=== PATIENT | female | born 1940 | race Caucasian/White ===

== ENCOUNTER 2016-07-17 10:51 | Inpatient (IN) | payer MEDICARE ==
[2016-07-17] VITALS (12 sets, daily range): BP systolic 100–130; BP diastolic 50–67
[~2016-07-17] VITALS: Ht 167.6 cm; Wt 62.6 kg
[~2016-07-17 10:51] MED LIST: ADVAIR; ALBUTEROL; ALBUTEROL 90 MG; ASP81CT PO; ASP81TEC PO; ATOR20TA66 PO; ATOR40TA70 PO; ATOR80TA PO; ATOR80TA76 PO; CELEBREX; CLCX200C PO; CLD600T; CLOP75TA28 PO; CLOP75TA69 PO; CLPD75T; CLPD75T PO; CPH250CIP; CYCL5TAB11 PO; FENO135C PO; FENO145T18 PO; FENO145T20 PO; GABA-488 PO; GABA300C PO; GLBR3T PO; HYDR-34 PO; HYDR-3816 PO; HYDR25CA5 PO; INDM25C; INSASP10V SC; INSU100I14 SQ; INSU100V6 SC; INSU100V6 SQ; INSU100V8 SQ; ISM60TCR PO; LRT10T; LYRICA; MECL25TA56; METO-270 PO; METO-333 PO; MTF500T PO; MTF500TCR PO; MULT1TAB63; NCT21TD TD; NF-PREG50C PO; NITR-65 PO; NITR0.4T SL; OMG1KC PO; OXYC-12 PO; PANT40TA2 PO; PANT40TA3 PO; PNT40TEC PO; PRD20T PO; PREG25CA; PREG50C PO; PREG50CA2 PO; RNT150T PO; SRTR100T PO; TRIPLEX; [UNRECOGNIZED DRUG - OTHER]; [UNRECOGNIZED DRUG - OTHER]; [UNRECOGNIZED DRUG - OTHER]
[2016-07-17] MEDS ORDERED: NITROGLYCERIN DRIP 25 MG/D5W 250 ML IV ONE (10:58)
[2016-07-17] MEDS ORDERED: ASPIRIN 81 MG CHEW (CHILDREN'S ASA) PO ONE (11:00)
[2016-07-17 11:10] LABS: BASOPHILS # (AUTO) 0.1 10^3/uL (0.0-0.1); BASOPHILS % (AUTO) 1 % (0-10); EOSINOPHILS # (AUTO) 0.1 10^3/uL (0.0-0.3); EOSINOPHILS % (AUTO) 1 % (0-10); LYMPHOCYTES # (AUTO) 1.5 X 10^3 (1.0-4.0); LYMPHOCYTES % (AUTO) 15 % (12-44); MEAN CORPUSCULAR HEMOGLOBIN 30 PG (25-34); MEAN CORPUSCULAR HGB CONC 35 G/DL (32-36); MEAN CORPUSCULAR VOLUME 87 FL (80-99); MEAN PLATELET VOLUME 10.2 FL (7.4-10.4); MONOCYTES # (AUTO) 0.5 X 10^3 (0.0-1.0); MONOCYTES % (AUTO) 5 % (0-12); NEUTROPHILS # (AUTO) 7.9 X 10^3 (1.8-7.8); NEUTROPHILS % (AUTO) 78 % (42-75); PLATELET COUNT 289 10^3/uL (130-400); RED BLOOD COUNT 4.62 10^6/uL (4.35-5.85); RED CELL DISTRIBUTION WIDTH 12.6 % (10.0-14.5); WHITE BLOOD COUNT 10.1 10^3/uL (4.3-11.0)
--- NOTE | 2016-07-17 11:10 | ED Chest Pain ---
General Stated Complaint: CP Source: patient Exam Limitations: no limitations History of Present Illness Time seen by provider: 11:08 Initial Comments To ER with persistent central chest heaviness that started this morning at 930. She denies any nausea vomiting or diaphoresis but reports that she is very weak. She has a history of NSTEMI in March 2016 and a subsequent heart catheter with stenting to the RCA in June 2016 showing additionally severe disease in the LAD. She took 3 sublingual nitroglycerin at home with significant improvement in pain but her pain has come back rated at 8 out of 10 currently. She continues to smoke 5 cigarettes per day. Primary gold assayer is Dr. Zavala and regular physician is Dr. Siegel. Timing/Duration: 4-6 hours Severity/Quality: moderate Location: central Radiation: no radiation ASA po VOCATIONAL INSTRUCTOR: No NTG SL VOCATIONAL INSTRUCTOR: No Allergies and Home Medications Allergies Coded Allergies: NKANo Known Allergies (Verified Allergy, Unknown, 04/27/13) Home Medications Aspirin 81 Mg Tabec 81 MG PO DAILY (Reported) Atorvastatin Calcium 80 Mg Tablet #30 80 MG PO HS Prescribed by: LAWRENCE DOSS on 07/02/16 1550 Clopidogrel Bisulfate 75 Mg Tablet 75 MG PO DAILY (Reported) LAST FILLED #30 03-27-16 Hydrocodone/Acetaminophen 1 Each Tablet 1 TAB PO Q8H PRN PRN PAIN (Reported) Insulin Glargine,Hum.rec.anlog 100 Unit/1 Ml Vial 31 UNITS SC BID (Reported) Isosorbide Mononitrate 60 Mg Tab 60 MG PO DAILY (Reported) Metoprolol Succinate 25 Mg Tab.er.24h 25 MG PO DAILY (Reported) Nitroglycerin 0.4 Mg Tab.subl 0.4 MG SL UD PRN PRN CHEST PAIN (Reported) DISSOLVE ONE TABLET UNDER TONGUE EVERY 5 MINUTES NEEDED FOR CHEST PAIN. DO NOT EXCEED A TOTAL OF 3 DOSES Pantoprazole Sodium 40 Mg Tablet.dr 40 MG PO DAILY (Reported) Review of Systems Constitutional: see HPI EENTM: No Symptoms Reported Respiratory: No Symptoms Reported Cardiovascular: See HPI Chest PainDenies Edema, Denies Irregular Heart Rate, Denies Lightheadedness, Denies Palpitations, Denies Syncope Gastrointestinal: Denies Abdominal Pain, Denies Diarrhea, Denies Nausea Genitourinary: No Symptoms Reported Musculoskeletal: no symptoms reported Skin: no symptoms reported Psychiatric/Neurological: No Symptoms Reported Endocrine: No Symptoms Reported Past Hsttjzm-Onghua-Gcsqas Hx Patient Social History Type Used: Cigarettes Recent Hopitalizations: No Immunizations Up To Date Tetanus Booster (TDap): Unknown PED Vaccines UTD: No Date of Pneumonia Vaccine: Jun 02, 2011 Date of Influenza Vaccine: Apr 02, 2016 Seasonal Allergies Seasonal Allergies: No Surgeries HX Surgeries: Yes (CARPAL TUNNEL BILAT. 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 ) Endocrine Disorders: Diabetes, Insulin dep HEENT HX ENT Disorders: Yes HEENT Disorders: Cataract Loss of Vision: Denies Hearing Impairment: Denies Cancer Hx Cancer: No Psychosocial Hx Psychiatric Problems: Yes Behavioral Health Disorders: Anxiety, Depression Integumentary HX Skin/Integumentary Disorder: No Blood Transfusions Hx Blood Disorders: No Adverse Reaction to a Blood Tr: No Family Medical History Family Medial History: FH: suicide FH: uterine cancer 19 MOTHER FHx: diabetes mellitus 19 MOTHER Physical Exam Vital Signs Vital Sign - Last 12Hours 07/17/16 10:52 Temp 97.9 Pulse 94 Resp 22 B/P 120/67 Pulse Ox 94 O2 Delivery Room Air O2 Flow Rate 2 Capillary Refill : General Appearance: No Apparent Distress WD/WN HEENT: PERRL/EOMI TMs Normal Neck: Full Range of Motion Supple Respiratory: Normal Breath Sounds No Accessory Muscle Use No Respiratory Distress Cardiovascular: Regular Rate, Rhythm Normal Peripheral Pulses Gastrointestinal: Normal Bowel Sounds Non Tender Soft Extremity: Normal Capillary Refill Normal Inspection Neurologic/Psychiatric: Alert Oriented x3 No Motor/Sensory Deficits Normal Mood/Affect Skin: Normal Color Warm/Dry Progress/Results/Core Measures Results/Orders Lab Results Laboratory Tests Test 07/17/16 10:55 Range/Units Activated Partial Thromboplast Time 24 24-35 SEC Alanine Aminotransferase (ALT/SGPT) 13 0-55 U/L Albumin 3.6 3.2-4.5 G/DL Alkaline Phosphatase 62 40-136 U/L Anion Gap 13 5-14 MMOL/L Aspartate Amino Transf (AST/SGOT) 12 5-34 U/L BUN/Creatinine Ratio 8 Basophils # (Auto) 0.1 0.0-0.1 10^3/uL Basophils (%) (Auto) 1 0-10 % Blood Urea Nitrogen 9 7-18 MG/DL Calcium Level 8.7 8.5-10.1 MG/DL Carbon Dioxide Level 23 21-32 MMOL/L Chloride Level 96 L 98-107 MMOL/L Creatinine 1.11 0.60-1.30 MG/DL Eosinophils # (Auto) 0.1 0.0-0.3 10^3/uL Eosinophils (%) (Auto) 1 0-10 % Estimat Glomerular Filtration Rate 48 Glucose Level 543 *H 70-105 MG/DL Hematocrit 40 35-52 % Hemoglobin 13.9 11.5-16.0 G/DL INR Comment 1.0 0.8-1.4 Lymphocytes # (Auto) 1.5 1.0-4.0 X 10^3 Lymphocytes (%) (Auto) 15 12-44 % Magnesium Level 1.9 1.8-2.4 MG/DL Mean Corpuscular Hemoglobin 30 25-34 PG Mean Corpuscular Hemoglobin Concent 35 32-36 G/DL Mean Corpuscular Volume 87 80-99 FL Mean Platelet Volume 10.2 7.4-10.4 FL Monocytes # (Auto) 0.5 0.0-1.0 X 10^3 Monocytes (%) (Auto) 5 0-12 % Myoglobin 51.7 10.0-92.0 NG/ML Neutrophils # (Auto) 7.9 H 1.8-7.8 X 10^3 Neutrophils (%) (Auto) 78 H 42-75 % Platelet Count 289 130-400 10^3/uL Potassium Level 3.9 3.6-5.0 MMOL/L Prothrombin Time 12.9 12.2-14.7 SEC Red Blood Count 4.62 4.35-5.85 10^6/uL Red Cell Distribution Width 12.6 10.0-14.5 % Sodium Level 132 L 135-145 MMOL/L Total Bilirubin 0.3 0.1-1.0 MG/DL Total Protein 6.7 6.4-8.2 G/DL Troponin I < 0.30 <0.30 NG/ML White Blood Count 10.1 4.3-11.0 10^3/uL My Orders Orders-LASHAUN VELA APRN Cbc With Automated Diff (07/17/16 10:58) Magnesium (07/17/16 10:58) Chest 1 View, Ap/Pa Only (07/17/16 10:58) Ekg Tracing (07/17/16 10:58) Cardiac Profile 1 (07/17/16 10:58) Comprehensive Metabolic Panel (07/17/16 10:58) Myoglobin Serum (07/17/16 10:58) Protime With Inr (07/17/16 10:58) Partial Thromboplastin Time (07/17/16 10:58) O2 (07/17/16 10:58) Monitor-Rhythm Ecg Trace Only (07/17/16 10:58) Lipid Panel (07/18/16 06:00) Aspirin Chewable Tablet (Baby Aspirin Ch (07/17/16 11:00) Saline Lock/Iv-Start (07/17/16 10:58) Nitroglycerin Drip 25 Mg/D5w (Nitroglyce (07/17/16 10:58) Ns Iv 500 Ml (Sodium Chloride 0.9%) (07/17/16 11:30) Insulin (Regular) Human (Humulin R (Per (07/17/16 11:30) Morphine Injection (Morphine Injection (07/17/16 11:52) Medications Given in ED Current Medications Medications Dose Ordered Sig/Roman Route Start Time Stop Time Status Last Admin Dose Admin Aspirin 324 mg 324 mg ONCE ONCE PO 07/17/16 11:00 07/17/16 11:01 DC 07/17/16 11:06 324 MG Insulin Human Regular 10 unit ONCE ONCE IV 07/17/16 11:30 07/17/16 11:31 DC 07/17/16 11:56 10 UNIT Nitroglycerin/ Dextrose 250 ml STK-MED ONCE IV 07/17/16 10:58 07/17/16 11:06 DC 07/17/16 11:06 Vital Signs/I&O Vital Sign - Last 12Hours 07/17/16 07/17/16 07/17/16 07/17/16 10:52 10:52 10:55 11:06 Temp 97.9 Pulse 94 97 Resp 22 22 B/P 120/67 120/67 Pulse Ox 94 99 99 O2 Delivery Room Air Nasal Cannula Nasal Cannula O2 Flow Rate 2 2 Diagnostic Imaging Diagonstic Imaging: Xray Comments NAME: DE[facility]A GARCIA [facility] REC#: [id number] PT STATUS: REG ER : 1940 PHYSICIAN: LASHAUN VELA APRN ADMIT DATE: 07/17/16/ER Draft Date of Exam:07/17/16 CHEST 1 VIEW, AP/PA ONLY Portable upright radiograph of the chest. INDICATION: Anterior chest wall pain. FINDINGS: The lungs are hyperinflated with no focal consolidation. The heart size is normal. No effusion or pneumothorax. Mediastinum and miguel appear unremarkable. IMPRESSION: Hyperinflated clear lungs. Dictated on workstation # [id number] Dict: 07/17/16 1114 Trans: 07/17/16 1129 [id number] Interpreted by: GEORGINA YU MD Electronically signed by: Departure Communication Time/Spoke to Admitting Phy: 12:[address] Siegel who agrees to admit the patient Time/Spoke to Consulting Physi: 12:07 Communication/Consulting Spoke with Dr. Browne who agrees to consult Progress Notes Persistent chest pain with relief after 3 sublingual nitroglycerin at home but pain is recurrent at and 8 at this time. We will give nitroglycerin drip 1206 pain is rated at 4 out of 10 with a current nitroglycerin drip. It was initially 8 out of 10. Blood pressure remains 120/69. IV fluid bolus going and she has received 10 units of IV insulin. Dr. Dr. Siegel has seen the patient in the emergency room. Impression Impression: Primary Impression: Coronary artery disease Qualified Code: I25.110 - Atherosclerotic heart disease of saxman coronary artery with unstable angina pectoris Additional Impression: Chest pain Qualified Code: R07.89 - Other chest pain Disposition: ADMITTED INPATIENT Condition: Stable Decision to Admit Reason: Admit from ER (General) Decision to Admit/Date: Jul 17, 2016 Time/Decision to Admit Time: 12:07 Departure-Patient Inst. Referrals: MERRICK SIEEGL DO (PCP/Family) Primary Care Physician LASHAUN VELA APRN Jul 17, 2016 11:10
[2016-07-17 11:20] LABS: PROTHROMBIN TIME PATIENT 12.9 SEC (12.2-14.7)
[2016-07-17 11:28] LABS: ALANINE AMINOTRANSFERASE 13 U/L (0-55); ALBUMIN 3.6 G/DL (3.2-4.5); ANION GAP 13 MMOL/L (5-14); ASPARTATE AMINO TRANSFERASE 12 U/L (5-34); BILIRUBIN,TOTAL 0.3 MG/DL (0.1-1.0); BLOOD UREA NITROGEN 9 MG/DL (7-18); BUN/CREATININE RATIO 8; CALCIUM 8.7 MG/DL (8.5-10.1); CARBON DIOXIDE 23 MMOL/L (21-32); CHLORIDE 96 MMOL/L (98-107); CREATININE SERUM 1.11 MG/DL (0.60-1.30); GFR ESTIMATED 48; MAGNESIUM 1.9 MG/DL (1.8-2.4); POTASSIUM 3.9 MMOL/L (3.6-5.0); SODIUM 132 MMOL/L (135-145); TOTAL PROTEIN 6.7 G/DL (6.4-8.2)
[2016-07-17 11:29] LABS: GLUCOSE 543 MG/DL (70-105)
[2016-07-17] MEDS ORDERED: NS IV 500 ML 500 ML IV SCH (11:30)
[2016-07-17] MEDS ORDERED: inSUlin (REGULAR) HUMAN 1 UNIT/0.01 ML (CHARGE PER UNIT) IV ONE (11:30)
--- NOTE | 2016-07-17 11:30 | Diagnostic Imaging Report ---
Portable upright radiograph of the chest. INDICATION: Anterior chest wall pain. FINDINGS: The lungs are hyperinflated with no focal consolidation. The heart size is normal. No effusion or pneumothorax. Mediastinum and miguel appear unremarkable. IMPRESSION: Hyperinflated clear lungs. Dictated by: Dictated on workstation # [id number]
[2016-07-17 11:34] LABS: MYOGLOBIN SERUM 51.7 NG/ML (10.0-92.0)
[2016-07-17] MEDS ORDERED: morphine INJ 10 MG/ML 1ML (SYR OR VIAL) ONE (11:52)
--- NOTE | 2016-07-17 12:21 | History & Physicial ---
History of Present Illness History of Present Illness Reason for visit/HPI patient had chest pain that started around 930 a.m. Patient took 3 nitroglycerin which helped the pain. pain came back and patient came to the emergency room. 2 weeks ago patient had chest pain and had a stent put in area Patient has a history of coronary artery disease. Patient is a known diabetic. Patient has history of noncompliance. Patient still smokes. Date of Admission Jul 17, 2016 at 12:09 I consulted on this patient on 07/17/16 12:18 Attending Physician Ismael Shultz DO Admitting Physician Ismael Shultz DO Consult Allergies and Home Medications Allergies Coded Allergies: NKANo Known Allergies (Verified Allergy, Unknown, 04/27/13) Home Medications Aspirin 81 Mg Tabec 81 MG PO DAILY (Reported) Atorvastatin Calcium 80 Mg Tablet #30 80 MG PO HS Prescribed by: LAWRENCE DOSS on 07/02/16 1550 Clopidogrel Bisulfate 75 Mg Tablet 75 MG PO DAILY (Reported) LAST FILLED #30 03-27-16 Hydrocodone/Acetaminophen 1 Each Tablet 1 TAB PO Q8H PRN PRN PAIN (Reported) Insulin Glargine,Hum.rec.anlog 100 Unit/1 Ml Vial 31 UNITS SC BID (Reported) Isosorbide Mononitrate 60 Mg Tab 60 MG PO DAILY (Reported) Metoprolol Succinate 25 Mg Tab.er.24h 25 MG PO DAILY (Reported) Nitroglycerin 0.4 Mg Tab.subl 0.4 MG SL UD PRN PRN CHEST PAIN (Reported) DISSOLVE ONE TABLET UNDER TONGUE EVERY 5 MINUTES NEEDED FOR CHEST PAIN. DO NOT EXCEED A TOTAL OF 3 DOSES Pantoprazole Sodium 40 Mg Tablet.dr 40 MG PO DAILY (Reported) Past Qadipwx-Yfiimj-Ubppcf Hx Patient Social History Alcohol Use: Denies Use Recreational Drug Use: No Smoking Status: Current Everyday Smoker Type Used: Cigarettes Physical Abuse Screen: No Sexual Abuse: No Recent Foreign Travel: No Contact w/other who traveled: No Recent Hopitalizations: No Recent Infectious Disease Expo: No Immunizations Up To Date Tetanus Booster (TDap): Unknown Date of Pneumonia Vaccine: Jun 02, 2011 Date of Influenza Vaccine: Apr 02, 2016 Seasonal Allergies Seasonal Allergies: No Surgeries HX Surgeries: Yes (CARPAL TUNNEL BILAT. KNEE SURGERY ) Surgeries: Appendectomy, Cardiac, Section, Coronary Stent, Hysterectomy, Oophorectomy, Orthopedic Respiratory Hx Respiratory Disorders: Yes Respiratory Disorders: COPD Cardiovascular Hx Cardiovascular Disorders: Yes (HEART CATH X2, UNKNOWN AMOUNT OF STENTS) Cardiac Disorders: Coronary Artery Disease, Heart Attack, High Cholesterol, Irregular Heartbeat Neurological Hx Neurological Disorders: Yes Neurological Disorders: Neuropathy, Seizure Disorder, TIA Reproductive System Hx Reproductive Disorders: No Sexually Transmitted Disease: No HIV/AIDS: No Female Reproductive Disorders: Denies Genitourinary Hx Genitourinary Disorders: No Gastrointestinal Hx Gastrointestinal Disorders: Yes Gastrointestinal Disorders: Gastroesophageal Reflux, Ulcer Musculoskeletal Hx Musculoskeletal Disorders: Yes Musculoskeletal Disorders: Osteoporosis, Arthritis, Chronic Back Pain Endocrine Hx Endocrine Disorders: Yes (OWNS GLUCOMETER, BUT NEVER CHECKS BLOOD SUGAR AND DOES NOT FOLLOW DIET. ) Endocrine Disorders: Diabetes, Insulin dep HEENT HX ENT Disorders: Yes HEENT Disorders: Cataract Loss of Vision: Denies Hearing Impairment: Denies Cancer Hx Cancer: No Psychosocial Hx Psychiatric Problems: Yes Behavioral Health Disorders: Anxiety, Depression Integumentary HX Skin/Integumentary Disorder: No Blood Transfusions Hx Blood Disorders: No Adverse Reaction to a Blood Tr: No Family Medical History Family Hx: FH: suicide FH: uterine cancer 19 MOTHER FHx: diabetes mellitus 19 MOTHER Constitutional: weakness EENTM: no symptoms reported Respiratory: no symptoms reported Cardiovascular: chest pain other (coronary artery disease) Gastrointestinal: no symptoms reported Genitourinary: no symptoms reported Physical Exam Vital Signs Vital Sign - Last 12Hours 07/17/16 10:52 Temp 97.9 Pulse 94 Resp 22 B/P 120/67 Pulse Ox 94 O2 Delivery Room Air O2 Flow Rate 2 Capillary Refill : Less Than 3 Seconds General Appearance: No Apparent Distress Thin Eyes: Bilateral Eye Normal Inspection HEENT: Normal ENT Inspection Pharynx Normal Neck: Full Range of Motion Normal Inspection Respiratory: Chest Non Tender No Accessory Muscle Use No Respiratory Distress Cardiovascular: Regular Rate, Rhythm No Murmur Gastrointestinal: Non Tender Soft Assessment/Plan Assessment and Plan chest pain. Diabetes. Coronary artery disease. Tobacco usage. Hyperlipidemia. Clinical Quality Measures AMI/AHF: ASA po Prior to arrival: ISMAEL Rahman DO Jul 17, 2016 12:21
[2016-07-17] MEDS ORDERED: ENOXAPARIN 60 MG/0.6 ML (LOVENOX) SYR SC ONE (12:45)
[2016-07-17] MEDS ORDERED: CLOPIDOGREL 300 MG (PLAVIX) TABLET PO ONE (12:45)
[2016-07-17] MEDS ORDERED: ATOR80TA76 PO (13:01)
[2016-07-17] MEDS ORDERED: PANT40TA3 PO (13:01)
[2016-07-17] MEDS ORDERED: CATHETER FLUSH 10 ML SYR IV PRN (13:15)
[2016-07-17] MEDS: NS IV 1000 ML 1,000 ML IV SCH (14:15)
[2016-07-17] MEDS: NITROGLYCERIN DRIP 25 MG/250 ML D5W (PRE-MIX) IV SCH (14:15)
[2016-07-17] MEDS ORDERED: RT-ALBUTEROL SULF 2.5 MG/3 ML PRE-MIX VIAL INH PRN (16:45)
[2016-07-17] MEDS ORDERED: inSUlin DETERMIR 1 UNIT/0.01 ML (LEVEMIR) CHARGE PER UNIT SQ NR (17:15)
[2016-07-17] MEDS: inSUlin (REGULAR) HUMAN 1 UNIT/0.01 ML (CHARGE PER UNIT) SC SCH ×2 (17:17→21:35)
--- NOTE | 2016-07-17 17:45 | Consultation-Cardiology ---
HPI-Cardiology Cardiology Consultation: Date of Consultation 07/17/16 Date of Admission Attending Physician Ismael Shultz DO Admitting Physician Ismael Shultz DO Consulting Physician Marina BROWNE MD HPI: Chief Complaint: chest pain This is a 75 year old lady who is a patient of Dr Zavala. She has history of uncontrolled dm, CKD III, active smoking. She presented with NSTEMI in mar [address] Zavala treated a OM lesion with balloon angioplasty. She presented again in late june with unstable angina refractory to medical therapy. coronary angiography revealed severe RCA stenosis treated with ERICK. She presents again with chest pain. Prolonged x 40 minutes. Initial intensity 8/10 , when I saw her, her pain intensity was 4/10 on NTG infusion. Her chest pain radiates to the jaw. Review of Systems-Cardiology Review of Systems Constitutional: No As described under HPI, No no symptoms reported, No chills, No fever, No lightheadedness, No malaise, No tiredness, No weight loss, No weight gain, No other Eyes: No As described under HPI, No no symptoms reported, No blindness, No blurred vision, No contact lenses, No drainage, No decreased acuity, No foreign body sensation, No glasses, No inflammation, No pain, No photophobia, No previous injury, No shadows, No tunnel vision, No other, No vision change Ears/Nose/Throat: No As described under HPI, No no symptoms reported, No chronic hearing loss, No epistaxis, No ear discharge, No ear pain, No loose teeth, No mouth pain, No mouth swelling, No nasal drainage, No nose pain, No recent hearing loss, No throat pain, No throat swelling, No ulcerations, No other Respiratory: No no symptoms reported, No As described under HPI, No cough, No orthopnea, No shortness of breath, No SOB with excertion, No SOB at rest, No stridor, No wheezing, No other Cardiovascular: No no symptoms reported, No As described under HPI, chest painNo edema, No irregular heart rate, No lightheadedness, No palpitations, No syncope, No other Gastrointestinal: No no symptoms reported, No As described under HPI, No abdomen distended, No abdominal pain, No blood streaked bowels, No constipation , No diarrhea, No difficulty swallowing, No nausea, No poor appetite, No poor fluid intake, No rectal bleeding, No vomiting, No other, No nausea/vomiting/ diarrhea, No stool coloration changes Genitourinary: No no symptoms reported, No As described under HPI, No burning, No dysuria, No discharge, No frequency, No flank pain, No hematuria, No incontinence, No pain, No urgency, No other, No urine frequency changes, No urine coloration changes Musculoskeletal: No no symptoms reported, No As describe under HPI, No back pain, No gout, No joint pain, No joint swelling, No muscle pain, No muscle stiffness, No neck pain, No other Skin: No no symptoms reported, No As described under HPI, No change in color, No change in hair/nails, No dryness, No lesions, No lumps, No rash, No other, No skin related problems, No ulcerations, No rash on exposed areas, No ulcerations on exposed areas Psychiatric/Neurological: No As described under HPI, No anxiety, No depression , No emotional problems, No focal weakness, No headache, No no symptoms reported , No numbness, No other, No pre-existing deficit, No seizure, No syncope, No tingling, No tremors, No weakness Hematologic: No no symptoms reported, No As described under HPI, No anemia, No blood clots, No easy bleeding, No easy bruising, No swollen glands, No other, No bleeding abnormalities [id number]-[place] Hx Patient Social History Alcohol Use: Denies Use Recreational Drug Use: No Smoking Status: Current Everyday Smoker Type Used: Cigarettes Recent Foreign Travel: No Recent Infectious Disease Expo: No Hospitalization with Isolation: Denies Physical Abuse Screen: No Sexual Abuse: No Immunizations Up To Date Tetanus Booster (TDap): Unknown Date of Pneumonia Vaccine: Jun 02, 2011 Date of Influenza Vaccine: Apr 02, 2016 Past Medical History PMH As described under Assessment. Family Medical History Family Medical History: She reports no family h/o CAD, stroke or SCD. Family History: FH: suicide FH: uterine cancer 19 MOTHER FHx: diabetes mellitus 19 MOTHER Allergies and Home Medications Allergies Coded Allergies: NKANo Known Allergies (Verified Allergy, Unknown, 04/27/13) Home Medications Aspirin 81 Mg Tabec 81 MG PO DAILY (Reported) Atorvastatin Calcium 80 Mg Tablet 80 MG PO HS (Reported) Hydrocodone/Acetaminophen 1 Each Tablet 1 TAB PO Q8H PRN PRN PAIN (Reported) Pantoprazole Sodium 40 Mg Tablet.dr 40 MG PO DAILY (Reported) LAST FILLED 05/19/16 #30 Physical Exam-Cardiology Physical Exam Vital Signs/I&O Vital Sign - Last 12Hours 07/17/16 07/17/16 07/17/16 07/17/16 10:52 10:52 10:55 11:06 Temp 97.9 Pulse 94 97 Resp 22 22 B/P 120/67 120/67 Pulse Ox 94 99 99 O2 Delivery Room Air Nasal Cannula Nasal Cannula O2 Flow Rate 2 2 07/17/16 07/17/16 07/17/16 07/17/16 12:26 12:45 12:57 12:57 Temp 98.8 Pulse 94 89 Resp 22 16 B/P 110/66 Pulse Ox 99 96 96 O2 Delivery Nasal Cannula Room Air Room Air O2 Flow Rate 2 07/17/16 07/17/16 07/17/16 07/17/16 13:00 14:00 15:00 16:00 Pulse 79 78 Resp 18 20 19 B/P 100/60 108/59 124/65 Pulse Ox 94 92 97 95 O2 Delivery Room Air 07/17/16 07/17/16 07/17/16 07/17/16 16:00 16:00 16:17 16:39 Temp 98.9 Pulse 81 Resp 18 B/P 113/65 Pulse Ox 94 95 95 95 O2 Delivery Room Air Room Air Room Air 07/17/16 17:00 Pulse 73 Resp 16 B/P 122/61 Pulse Ox 94 Capillary Refill : Less Than 3 Seconds Constitutional: No appears stated age, No AAO x 3, No apparent distress, No PERRL, No well-developed, No well-nourished, No other HEENT: No PERRL, No normal ENT inspection, No TMs normal, No pharynx normal, No scleral icterus (R), No scleral icterus (L), No pale conjunctivae (R), No pale conjunctivae (L), No photophobia, No TM abnormal (R), No TM abnormal (L), No pharyngeal erythema, No tonsillar exudate, No other, No discharge, No EOMI, No hearing is well preserved, No hard of hearing, No oral hygience is good, No ulceration, No xanthelasmas are seen Neck: No non-tender, No full range of motion, No supple, No normal inspection, No carotid bruit, No limited range of motion, No lymphadenopathy (R), No lymphadenopathy (L), No tender lateral, No tender midline, No thyromegaly, No other, No carotid pulses are 2 + bilaterally, No with good upstrokes Respiratory: No accessory muscle use, No respiratory distress, No chest tender , No chest expansion is symmetric, No chest is bilaterally symmetric, No lungs clear to percussion, No lungs clear to auscultation, No crackles, No rhonchi, No rales, No stridor, No wheezing, No pleural rub, No other Cardiovascular: No regular rate-rhythm, No irregularly irregular, No extra beats, No parasternal heave is noted, No JVD, No edema, No bradycardia, No tachycardia, No point of maximal impulse, No cardiac thrills are palpable, No S1 and S2, No gallop/S3, No gallop/S4, No diastolic murmur, No systolic murmur, No friction rub, No click, No other Gastrointestinal: No tender, No soft, No round, No distended, No pulsatile mass , No organomegaly, No guarding, No rebound, No tenderness, No hernia, No mass, No audible bowel sounds, No abnormal bowel sounds, No abdominal bruits, No spleenomegaly, No other Rectal: deferred Extremities: No normal range of motion, No non-tender, No normal inspection, No pedal edema, No calf tenderness, No normal capillary refill, No pelvis stable , No calf tenderness, No inflammation, No pedal edema, No slow capillary refill , No swelling, No other, No abrasion, No clubbing, No cyanosis, No ecchymosis, No laceration, No no lower extremity edema bilateral, No significant edema, No tenderness, No wound Neurologic/Psychiatric: No transaction manager II-XII nml as tested, No no motor/sensory deficits, No alert, No normal mood/affect, No oriented x 3, No abnormal cerebellar tests, No abnormal transaction manager II-XII, No abnormal gait, No aphasia, No EOM palsy, No facial droop, No motor weakness, No sensory deficit, No depressed affect, No disoriented x 3, No other, No grossly intact, No power is 5/5 both on sides Skin: No normal color, No warm/dry, No cyanosis, No cool, No diaphoresis, No damp, No ecchymosis, No jaundice, No mottled, No pallor, No rash, No tattoos/ piercings, No ulcerations, No rash on exposed areas, No ulcerations on exposed areas, No other Data Review Labs Laboratory Tests 07/17/16 10:55: Activated Partial Thromboplast Time 24, Alanine Aminotransferase (ALT/SGPT) 13, Albumin 3.6, Alkaline Phosphatase 62, Anion Gap 13, Aspartate Amino Transf (AST/ SGOT) 12, BUN/Creatinine Ratio 8, Basophils # (Auto) 0.1, Basophils (%) (Auto) 1 , Blood Urea Nitrogen 9, Calcium Level 8.7, Carbon Dioxide Level 23, Chloride Level 96L, Creatinine 1.11, Eosinophils # (Auto) 0.1, Eosinophils (%) (Auto) 1, Estimat Glomerular Filtration Rate 48, Glucose Level 543*H, Hematocrit 40, Hemoglobin 13.9, INR Comment 1.0, Lymphocytes # (Auto) 1.5, Lymphocytes (%) ( Auto) 15, Magnesium Level 1.9, Mean Corpuscular Hemoglobin 30, Mean Corpuscular Hemoglobin Concent 35, Mean Corpuscular Volume 87, Mean Platelet Volume 10.2, Monocytes # (Auto) 0.5, Monocytes (%) (Auto) 5, Myoglobin 51.7, Neutrophils # ( Auto) 7.9H, Neutrophils (%) (Auto) 78H, Platelet Count 289, Potassium Level 3.9 , Prothrombin Time 12.9, Red Blood Count 4.62, Red Cell Distribution Width 12.6 , Sodium Level 132L, Total Bilirubin 0.3, Total Protein 6.7, Troponin I < 0.30, White Blood Count 10.1 07/17/16 12:23: Glucometer 418*H 07/17/16 16:50: Troponin I < 0.30 07/17/16 17:04: Glucometer 433*H ECG Impression ECG Initial ECG Rhythm: Normal Sinus Initial ECG Impression: Nonspecific Changes A/P-Cardiology Assessment/Admission Diagnosis Unstable angina refractory to medical therapy, active smoking, CKD III, Uncontrolled diabetes Plan NTG infusion (low dose secondary to hypotension), LMWH ACS dose, bolus plavix, aspirin. First two sets of troponin negative. EKG - no acute ST changes. She might need coronary angiography in am. CKD - consult nephrology. Uncontrolled DM - defer to Dr Shultz. Active smoking- strongly recommended to quit. Thank you for your consultation. Please call me if you have any questions. Abrahan Browne MD, FACP, FACC, FSCAI, FHRS, CCDS Interventional Cardiology Cardiac Electrophysiology Vascular Medicine and Endovascular Interventions Clinical Quality Measures AMI/AHF: ASA po Prior to arrival: No DVT/VTE Risk/Contraindication: Risk Factor Score Per Nursin RFS Level Per Nursing on Admit: 3=High Marina BROWNE MD Jul 17, 2016 5:45 pm
[2016-07-18] VITALS (22 sets, daily range): BP systolic 92–181; BP diastolic 51–99
[2016-07-18 04:22] LABS: BASOPHILS % (AUTO) 0 % (0-10); EOSINOPHILS % (AUTO) 0 % (0-10); LYMPHOCYTES # (AUTO) 1.6 X 10^3 (1.0-4.0); LYMPHOCYTES % (AUTO) 13 % (12-44); MEAN CORPUSCULAR HEMOGLOBIN 30 PG (25-34); MEAN CORPUSCULAR HGB CONC 34 G/DL (32-36); MEAN CORPUSCULAR VOLUME 87 FL (80-99); MONOCYTES # (AUTO) 0.8 X 10^3 (0.0-1.0); MONOCYTES % (AUTO) 7 % (0-12); NEUTROPHILS # (AUTO) 9.4 X 10^3 (1.8-7.8); NEUTROPHILS % (AUTO) 79 % (42-75); PLATELET COUNT 304 10^3/uL (130-400); RED BLOOD COUNT 4.58 10^6/uL (4.35-5.85); RED CELL DISTRIBUTION WIDTH 12.6 % (10.0-14.5); WHITE BLOOD COUNT 11.9 10^3/uL (4.3-11.0)
[2016-07-18 04:42] LABS: ANION GAP 9 MMOL/L (5-14); BLOOD UREA NITROGEN 8 MG/DL (7-18); BUN/CREATININE RATIO 10; CALCIUM 8.5 MG/DL (8.5-10.1); CARBON DIOXIDE 24 MMOL/L (21-32); CHLORIDE 108 MMOL/L (98-107); GFR ESTIMATED > 60; MAGNESIUM 1.9 MG/DL (1.8-2.4); PHOSPHORUS 3.8 MG/DL (2.3-4.7); POTASSIUM 3.7 MMOL/L (3.6-5.0); SODIUM 141 MMOL/L (135-145)
[2016-07-18 04:44] LABS: CHOLESTEROL 106 MG/DL (< 200); DIRECT LDL 50 MG/DL (1-129); TRIGLYCERIDES 136 MG/DL (<150); VLDL CHOLESTEROL 27 MG/DL (5-40)
[2016-07-18 04:49] LABS: GLUCOSE 60 MG/DL (70-105)
[2016-07-18] MEDS ORDERED: MAGNESIUM 1 GM/100 ML IVPB 100 ML IV SCH (06:00)
[2016-07-18] MEDS ORDERED: KCL 20 MEQ TAB (K-DUR) PO SCH (06:00)
[2016-07-18] MEDS ORDERED: POTASSIUM CL 10MEQ/50ML IVPB 50 ML IV SCH (06:00)
[2016-07-18] MEDS: inSUlin (REGULAR) HUMAN 1 UNIT/0.01 ML (CHARGE PER UNIT) SC SCH ×3 (06:00→17:46)
[2016-07-18] MEDS ORDERED: ASPIRIN E.C. 81 MG (ECOTRIN) TAB PO ONE (06:00)
[2016-07-18] MEDS: CLOPIDOGREL 75 MG (PLAVIX) TABLET PO ONE ×2 (06:16→06:20)
[2016-07-18] MEDS: NS IV 1000 ML 1,000 ML IV SCH ×2 (06:22→13:39)
[2016-07-18] MEDS ORDERED: HYDROcodone/APAP 7.5 MG/325 MG (LORTAB, LORCET PLUS) TABLET PO PRN ×2 (09:30→15:41)
--- NOTE | 2016-07-18 09:45 | Progress Note (SOAP) ---
Subjective Subjective/Events-last exam 75 yo F with CAD, uncontrolled diabetes- admitted for unstable angina. Pt this AM reports she no longer has the chest pain. She also reports a right radial heart cath 1 week ago. Review of Systems General: No Chills, No Night Sweats HEENT: No Head Aches Pulmonary: Dyspnea (at baseline though) Cough Cardiovascular: : Chest Pain (improved- resolved for time being.)No: Palpitations Gastrointestinal: No: Abdominal Pain, Nausea, Vomiting Genitourinary: No Dysuria, No Frequency Musculoskeletal: No: neck pain Neurological: No: Numbness, Weakness Objective Exam Vital Signs Date Time Temp Pulse Resp B/P Pulse Ox O2 Delivery O2 Flow Rate FiO2 07/18/16 09:00 98.0 07/18/16 07:00 91 07/18/16 06:20 97.7 07/18/16 04:00 81 20 92/51 93 Room Air 07/18/16 04:00 95 Room Air 07/18/16 03:00 80 19 132/65 91 Room Air 07/18/16 02:00 82 21 105/55 92 Room Air 07/18/16 01:01 81 07/18/16 01:00 81 20 117/59 92 Room Air 07/18/16 00:00 80 22 117/60 95 Room Air 07/18/16 00:00 95 Room Air 07/17/16 23:00 76 20 123/67 95 Room Air 07/17/16 22:00 77 20 129/66 96 Room Air 07/17/16 21:51 95 Room Air 07/17/16 21:35 97.7 07/17/16 21:00 77 20 130/66 95 Room Air 07/17/16 20:00 95 Room Air 07/17/16 20:00 73 14 122/61 96 Room Air 07/17/16 19:00 75 18 114/50 95 Room Air 07/17/16 19:00 75 07/17/16 18:00 74 20 127/65 96 07/17/16 17:00 73 16 122/61 94 07/17/16 16:39 95 Room Air 07/17/16 16:17 95 07/17/16 16:00 98.9 95 Room Air 07/17/16 16:00 81 18 113/65 94 Room Air 07/17/16 16:00 95 Room Air 07/17/16 15:00 78 19 124/65 97 07/17/16 14:00 79 20 108/59 92 07/17/16 13:00 18 100/60 94 07/17/16 12:57 110/66 07/17/16 12:57 98.8 89 16 96 Room Air 07/17/16 12:45 96 Room Air 07/17/16 12:26 94 22 99 Nasal Cannula 2 07/17/16 11:06 97 22 120/67 99 07/17/16 10:55 99 Nasal Cannula 2 07/17/16 10:52 Nasal Cannula 2 07/17/16 10:52 97.9 94 22 120/67 94 Room Air I & O 07/18/16 07:00 Intake Total 3660 ml Output Total 600 ml Balance 3060 ml Capillary Refill : Less Than 3 Seconds General Appearance: No Apparent Distress (smells of cigarettes) HEENT: PERRL/EOMI Neck: Non Tender Supple Respiratory: Chest Non Tender Lungs Clear Cardiovascular: Regular Rate, Rhythm No Edema Gastrointestinal: normal bowel sounds non tender soft Extremity: Normal Range of Motion Neurologic/Psychiatric: Alert Oriented x3 Skin: Warm/Dry Results Lab Laboratory Tests 07/17/16 10:55: Activated Partial Thromboplast Time 24, Alanine Aminotransferase (ALT/SGPT) 13, Albumin 3.6, Alkaline Phosphatase 62, Anion Gap 13, Aspartate Amino Transf (AST/ SGOT) 12, BUN/Creatinine Ratio 8, Basophils # (Auto) 0.1, Basophils (%) (Auto) 1 , Blood Urea Nitrogen 9, Calcium Level 8.7, Carbon Dioxide Level 23, Chloride Level 96L, Creatinine 1.11, Eosinophils # (Auto) 0.1, Eosinophils (%) (Auto) 1, Estimat Glomerular Filtration Rate 48, Glucose Level 543*H, Hematocrit 40, Hemoglobin 13.9, INR Comment 1.0, Lymphocytes # (Auto) 1.5, Lymphocytes (%) ( Auto) 15, Magnesium Level 1.9, Mean Corpuscular Hemoglobin 30, Mean Corpuscular Hemoglobin Concent 35, Mean Corpuscular Volume 87, Mean Platelet Volume 10.2, Monocytes # (Auto) 0.5, Monocytes (%) (Auto) 5, Myoglobin 51.7, Neutrophils # ( Auto) 7.9H, Neutrophils (%) (Auto) 78H, Platelet Count 289, Potassium Level 3.9 , Prothrombin Time 12.9, Red Blood Count 4.62, Red Cell Distribution Width 12.6 , Sodium Level 132L, Total Bilirubin 0.3, Total Protein 6.7, Troponin I < 0.30, White Blood Count 10.1 07/17/16 12:23: Glucometer 418*H 07/17/16 16:50: Troponin I < 0.30 07/17/16 17:04: Glucometer 433*H 07/17/16 21:30: Glucometer 286H 07/17/16 22:46: Troponin I 2.15*H 07/18/16 04:10: Anion Gap 9, BUN/Creatinine Ratio 10, Basophils # (Auto) 0.0, Basophils (%) ( Auto) 0, Blood Urea Nitrogen 8, Calcium Level 8.5, Carbon Dioxide Level 24, Chloride Level 108H, Cholesterol Level 106, Creatinine 0.80, Eosinophils # (Auto ) 0.0, Eosinophils (%) (Auto) 0, Estimat Glomerular Filtration Rate > 60, Glucose Level 60*L, HDL Cholesterol 33L, Hematocrit 40, Hemoglobin 13.5, LDL Cholesterol Direct 50, Lymphocytes # (Auto) 1.6, Lymphocytes (%) (Auto) 13, Magnesium Level 1.9, Mean Corpuscular Hemoglobin 30, Mean Corpuscular Hemoglobin Concent 34, Mean Corpuscular Volume 87, Mean Platelet Volume 10.0, Monocytes # (Auto) 0.8, Monocytes (%) (Auto) 7, Neutrophils # (Auto) 9.4H, Neutrophils (%) (Auto) 79H, Phosphorus Level 3.8, Platelet Count 304, Potassium Level 3.7, Red Blood Count 4.58, Red Cell Distribution Width 12.6, Sodium Level 141, Triglycerides Level 136, VLDL Cholesterol 27, White Blood Count 11.9H Assessment/Plan Assessment/Plan Assess & Plan/Chief Complaint 75 yo F admitted 07/17/16 unstable angina- NTG infusion (low dose secondary to hypotension), LMWH ACS dose, bolus plavix, aspirin. Dr. 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 CKD stage III- Cr normal eGFR >60 tobacco use- encourage cessation HLD- statin Dispo: Dr. Browne may do angiography this am. Will see what he recommends. Diagnosis/Problems: Clinical Quality Measures AMI/AHF: ASA po Prior to arrival: No DVT/VTE Risk/Contraindication: Risk Factor Score Per Nursin RFS Level Per Nursing on Admit: 3=High ÁLVARO MORALES MD Jul 18, 2016 09:45
[2016-07-18] MEDS ORDERED: fentaNYL INJECTION 100 MCG/2 ML AMP ONE (12:04)
[2016-07-18] MEDS ORDERED: NS IV 1000 ML 1,000 ML ONE (12:04)
[2016-07-18] MEDS ORDERED: LIDOCAINE 1% INJ 20 ML (XYLOCAINE) VIAL ONE (12:04)
--- NOTE | 2016-07-18 12:04 | Cardiology Progress Note ---
Cardiology SOAP Progress Note Subjective: No further chest pain. Objective: I&O/Vital Signs Vital Sign - Last 12Hours 07/18/16 07/18/16 07/18/16 07/18/16 01:00 01:01 02:00 03:00 Pulse 81 81 82 80 Resp 20 21 19 B/P 117/59 105/55 132/65 Pulse Ox 92 92 91 O2 Delivery Room Air Room Air Room Air 07/18/16 07/18/16 07/18/16 07/18/16 04:00 04:00 05:00 06:00 Pulse 81 88 82 Resp 20 31 18 B/P 92/51 139/75 111/55 Pulse Ox 95 93 98 96 O2 Delivery Room Air Room Air Room Air Room Air 07/18/16 07/18/16 07/18/16 07/18/16 06:20 07:00 07:00 08:00 Temp 97.7 Pulse 91 90 105 Resp 19 18 B/P 127/65 122/66 Pulse Ox 96 96 O2 Delivery Room Air Room Air 07/18/16 07/18/16 07/18/16 09:00 09:00 10:00 Temp 98.0 Pulse 84 77 Resp 22 B/P 128/ 140/72 Pulse Ox 95 96 O2 Delivery Room Air Room Air Intake and Output 07/18/16 00:00 Intake Total 1920 ml Output Total 600 ml Balance 1320 ml Weight (Pounds): 138 Weight (Ounces): 8.0 Weight (Calculated Kilograms): [id number] Constitutional: No appears stated age, No AAO x 3, No apparent distress, No PERRL, No well-developed, No well-nourished, No other Respiratory: No accessory muscle use, No respiratory distress, No chest tender , No chest expansion is symmetric, No chest is bilaterally symmetric, No lungs clear to percussion, No lungs clear to auscultation, No crackles, No rhonchi, No rales, No stridor, No wheezing, No pleural rub, No other Cardiovascular: No regular rate-rhythm, No irregularly irregular, No extra beats, No parasternal heave is noted, No JVD, No edema, No bradycardia, No tachycardia, No point of maximal impulse, No cardiac thrills are palpable, No S1 and S2, No gallop/S3, No gallop/S4, No diastolic murmur, No systolic murmur, No friction rub, No click, No other Gastrointestional: No tender, No soft, No round, No distended, No pulsatile mass, No organomegaly, No guarding, No rebound, No tenderness, No hernia, No mass, No audible bowel sounds, No abnormal bowel sounds, No abdominal bruits, No spleenomegaly, No other Extremities: No normal range of motion, No non-tender, No normal inspection, No pedal edema, No calf tenderness, No normal capillary refill, No pelvis stable , No calf tenderness, No inflammation, No pedal edema, No slow capillary refill , No swelling, No other, No abrasion, No clubbing, No cyanosis, No ecchymosis, No laceration, No no lower extremity edema bilateral, No significant edema, No tenderness, No wound Neurologic/Psychiatric: No senior sales operations analyst II-XII nml as tested, No no motor/sensory deficits, No alert, No normal mood/affect, No oriented x 3, No abnormal cerebellar tests, No abnormal senior sales operations analyst II-XII, No abnormal gait, No aphasia, No EOM palsy, No facial droop, No motor weakness, No sensory deficit, No depressed affect, No disoriented x 3, No other, No grossly intact, No power is 5/5 both on sides Skin: No normal color, No warm/dry, No cyanosis, No cool, No diaphoresis, No damp, No ecchymosis, No jaundice, No mottled, No pallor, No rash, No tattoos/ piercings, No ulcerations, No rash on exposed areas, No ulcerations on exposed areas, No other Results/Procedures: Labs Laboratory Tests 07/17/16 12:23: Glucometer 418*H 07/17/16 16:50: Troponin I < 0.30 07/17/16 17:04: Glucometer 433*H 07/17/16 21:30: Glucometer 286H 07/17/16 22:46: Troponin I 2.15*H 07/18/16 04:10: Anion Gap 9, BUN/Creatinine Ratio 10, Basophils # (Auto) 0.0, Basophils (%) ( Auto) 0, Blood Urea Nitrogen 8, Calcium Level 8.5, Carbon Dioxide Level 24, Chloride Level 108H, Cholesterol Level 106, Creatinine 0.80, Eosinophils # (Auto ) 0.0, Eosinophils (%) (Auto) 0, Estimat Glomerular Filtration Rate > 60, Glucose Level 60*L, HDL Cholesterol 33L, Hematocrit 40, Hemoglobin 13.5, LDL Cholesterol Direct 50, Lymphocytes # (Auto) 1.6, Lymphocytes (%) (Auto) 13, Magnesium Level 1.9, Mean Corpuscular Hemoglobin 30, Mean Corpuscular Hemoglobin Concent 34, Mean Corpuscular Volume 87, Mean Platelet Volume 10.0, Monocytes # (Auto) 0.8, Monocytes (%) (Auto) 7, Neutrophils # (Auto) 9.4H, Neutrophils (%) (Auto) 79H, Phosphorus Level 3.8, Platelet Count 304, Potassium Level 3.7, Red Blood Count 4.58, Red Cell Distribution Width 12.6, Sodium Level 141, Triglycerides Level 136, VLDL Cholesterol 27, White Blood Count 11.9H 07/18/16 11:54: Glucometer 248H A/P: Assessment/Dx: NSTEMI, Uncontrolled diabetes, active smoking, CKD III Plan: NSTEMI with positive troponin. Coronary angiography today. LMWH held. aspirin and plavix continued. CKD - consult nephrology. Uncontrolled DM - defer to Dr Shultz. Active smoking- strongly recommended to quit. Clinical Quality Measures AMI/AHF: ASA po Prior to arrival: Marina Cross MD Jul 18, 2016 12:04 pm
[2016-07-18] MEDS ORDERED: MIDAZOLAM 5 MG/5 ML (VERSED) VIAL ONE (12:05)
[2016-07-18] MEDS ORDERED: HEParin (CATH LAB) 2,000 ML IV ONE (12:05)
--- NOTE | 2016-07-18 12:05 | Cardiac Procedure Note-CS/ASA ---
Pre-Procedure Note Pre-Op Procedure Note H&P Reviewed The H&P was reviewed, patient examined and no changes noted. Date H&P Reviewed: Jul 18, 2016 Time H&P Reviewed: 12:05 Conscious Sedation Pre-Proced Time Reviewed: 12:05 ASA Class: 3 Airway Mallampati Classification: (three affiliated appropriate class) I. II. III, IV Lungs Heart ASA score ASA 1: a normal healthy patient ASA 2: a patient with a mild systemic disease (mid diabetes, controlled hypertension, obesity ASA 3: a patient with a severe systemic disease that limits activity (angina , COPD, prior Myocardial infarction) ASA 4: a patient with an incapacitating disease that is a constant threat to life (CHF, renal failure) ASA 5: a moribund patient not expected to survive 24 hrs. (ruptured aneurysm) ASA 6: a declared brain patient whose organs are being harvested. For emergent operations, add the letter E after the classification Grade 1 Sedation Plan: Analgesia, Amnesia, Plan communicated to team members, Discussed options with patient/fam, Discussed risks with patient/fam Note The patient is an appropriate candidate to undergo the planned procedure, sedation, and anesthesia. The patient immediately re-assessed prior to indication. Marina VIGIL MD Jul 18, 2016 12:05 pm
[2016-07-18] MEDS ORDERED: HEParin 1000 UNIT/ML (10ML VIAL) FOR BOLUS ONE (12:06)
[2016-07-18] MEDS ORDERED: NITROGLYCERIN DRIP 25 MG/D5W 0 ML IV ONE (12:07)
[2016-07-18] MEDS ORDERED: ADENOSINE 3 MG/1 ML (ADENOSCAN) 30ML VIAL IV ONE (13:02)
[2016-07-18] MEDS: NITROGLYCERIN DRIP 25 MG/250 ML D5W (PRE-MIX) IV SCH (13:15)
--- NOTE | 2016-07-18 13:45 | Progress Note-Post Operative ---
Post-Operative Progess Note Pre-Operative Diagnosis nstemi Post-Operative Diagnosis nstemi, severe LAD, Ramus and OM 1 disease. Post-Op Procedure Note Date of Procedure: Jul 18, 2016 Name of Procedure: 1. Coronary angiography. 2. Left heart catheterization. 3. FFR of the LAD. 4. Abdominal aortogram and bilateral lower extremity runoff. 5. Minx closure of the right femoral artery Procedure Note/Findings severe proximal disease of the LAD (FFR 0.76), severe long lesion of the proximal segment of a ramus intermedius artery, severe stenosis of obtuse marginal artery, patent stent in the RCA, however, severe disease of a small PDA is noted. Normal LV ejection fraction with normal LVEDP. Transfer to [facility] for CABG (LAD, Ramus, OM1). Stop Plavix, start heparin infusion without bolus. Anesthesia Type local anesthesia, conscious sedation Estimated blood loss (mL): 10 mL Packing: none Specimen(s) collected none Marina VIGIL MD Jul 18, 2016 1:45 pm
--- NOTE | 2016-07-18 14:16 | Cardiology Discharge Summary ---
Diagnosis/Chief Complaint Date of Admission Jul 17, 2016 at 10:40 am Date of Discharge Jul 18, 2016 Admission Diagnosis non-STEMI, active smoking, CKD III, Uncontrolled diabetes Final/Discharge Diagnosis non-STEMI, severe three-vessel disease, mild to moderate PAD, diabetes, active smoking, CKD 3 Chief Complaint/HPI Chief Complaint/HPI This is a 75 year old lady who is a patient of Dr Zavala. She has history of uncontrolled dm, CKD III, active smoking. She presented with NSTEMI in mar [address] Zavala treated a OM lesion with balloon angioplasty. She presented again in late june with unstable angina refractory to medical therapy. coronary angiography revealed severe RCA stenosis treated with ERICK. She presents again with chest pain. Prolonged x 40 minutes. Initial intensity 8/10 , when I saw her, her pain intensity was 4/10 on NTG infusion. Her chest pain radiates to the jaw. Discharge Summary Procedures coronary angiography reveals severe proximal LAD stenosis with FFR 0.76. Severe long stenosis segment in the proximal aspect of the ramus intermedius. Severe stenotic segment in the proximal and mid aspect of the first obtuse marginal artery. patent stent in the RCA. Small PDA which has severe stenosis in the proximal aspect. Normal LVEDP and normal ejection fraction. Discharge Physical Examination stable Hospital Course stop Plavix, start IV heparin, transferred to [place] for cardiac surgery Pending Labs Laboratory Tests 07/18/16 11:54: Glucometer 248 Discussion & Recommendations Discussion cardiac surgery is recommended in a patient with aggressive progressive coronary disease and diabetes. Follow up appt.: Dr. Zavala Dicharge Diet: Cardiac Diet Activity as Tolerated: Yes Home Medications Reviewed patient Home Medication Reconciliation Form Discharge Home Medications: Reviewed and agree with Discharge Medication list on patient's Discharge Instruction sheet Condition at discharge guarded Instructions to patient/family discussed at length with the patient and family, agree for transfer to [place]. Diagnosis/Problems Diagnosis/Problems (1) CKD (chronic kidney disease) stage 3, GFR 30-59 ml/min Status: Chronic (2) Smoking Status: Chronic (3) Non-ST elevation myocardial infarction (NSTEMI) Status: Acute (4) Uncontrolled diabetes mellitus Status: Acute Qualifiers: Clinical Quality Measures AMI/AHF: ASA po Prior to arrival: No DVT/VTE Risk/Contraindication: Risk Factor Score Per Nursin RFS Level Per Nursing on Admit: 3=High Marina VIGILZWAN MD Jul 18, 2016 2:15 pm
[2016-07-18] MEDS ORDERED: NS IV 1000 ML 1,000 ML IV SCH (15:51)
[2016-07-18] MEDS ORDERED: PATIENT MAY USE OWN MEDS, ALL PO SCH (16:00)
[2016-07-18] MEDS ORDERED: HEParin DRIP 25000 UNIT/500ML 500 ML IV SCH (17:09)
[2016-07-18] MEDS ORDERED: HEParin 1000 UNIT/ML (10ML VIAL) FOR BOLUS IV SCH (17:15)
[2016-07-18] MEDS ORDERED: HEParin DRIP 25000 UNIT/500ML 500 ML IV ONE (17:22)
[2016-07-18 17:34] LABS: MEAN PLATELET VOLUME 10.3 FL (7.4-10.4); RED BLOOD COUNT 4.72 10^6/uL (4.35-5.85); RED CELL DISTRIBUTION WIDTH 12.8 % (10.0-14.5); WHITE BLOOD COUNT 8.4 10^3/uL (4.3-11.0)
[2016-07-18 17:48] LABS: PROTHROMBIN TIME PATIENT 13.1 SEC (12.2-14.7)
[2016-07-18] MEDS ORDERED: inSUlin DETERMIR 1 UNIT/0.01 ML (LEVEMIR) CHARGE PER UNIT SQ SCH (21:00)
[2016-07-19] MEDS ORDERED: ASPIRIN E.C. 81 MG (ECOTRIN) TAB PO SCH (09:00)
--- NOTE | 2016-07-19 14:30 | CARDIAC CATHETERIZATION ---
PROCEDURE PHYSICIAN: LAZARA BROWNE CORONARY ANGIOGRAPHY REPORT DATE OF PROCEDURE: 07/18/2016 [employer]: Dr. Zavala PERFORMING PHYSICIAN: Dr. Pepe Browne. INDICATION: Non-ST elevation WV. PREOPERATIVE DIAGNOSIS: Non-ST elevation WV. POSTOPERATIVE DIAGNOSIS: Non-ST elevation WV, severe multivessel disease. HISTORY: Ms. Aaron is a 75-year-old lady with history of uncontrolled diabetes, medication noncompliance and active smoking. She presented in March of 2016 with non-ST elevation WV. Balloon angioplasty was performed to the ramus intermedius as well as the obtuse marginal artery. She was discharged in stable condition. She presented with prolonged chest pain refractory to medical therapy in June 2016. Coronary angiography revealed significant progression of disease in the mid RCA just prior to a previous stent. Moderate to severe disease was also noticed in the left circumflex artery system as well as the LAD. PCI to the mid RCA was performed with a drug eluting stent. She was again discharged in stable condition. She presents again yesterday with prolonged episode of chest pain. She was still having chest pain when I saw her in the ER. EKG did not show any ST segment elevation or depression. Her chest pain was initially refractory to nitroglycerin infusion. Enzymes were positive. She was diagnosed with non-ST elevation WV and urgent coronary angiography was performed this morning. She was given a bolus of Plavix and aspirin. She was given low molecular weight heparin overnight. History of claudication right worse than left. PROCEDURE PERFORMED: 1. Right femoral angiography. 2. Coronary angiography. 3. Left heart catheterization. 4. FFR to the LAD. 5. Abdominal aortogram with lower extremity runoff. 6. Right femoral artery closure with Mynx device. COMPLICATIONS: None. SPECIMENS: None. ESTIMATED BLOOD LOSS: 10 mL. FINAL RESULTS: Satisfactory. ANTICOAGULATION: IV heparin. CONTRAST: 137 cc of Omnipaque FLUOROSCOPY: In minutes: 7 minutes. FLUOROSCOPY DOSE: 313 mGy PROCEDURE DETAILS: The patient was brought to the Associate Drafter after informed consent was taken. All the risks and complications were explained in detail. The patient was draped and prepped in the usual sterile fashion. Access was gained in the right femoral artery with a 6-Ethiopian sheath. We had mild difficulty with gaining access. We also had some difficulty advancing the guidewire in the right iliac artery. Coronary angiography and left heart catheterization was performed with a JR4 and a JL4 catheter. Abdominal aortogram was performed with a pigtail catheter. FINDINGS: 1. Left heart catheterization: Aortic pressure 104/47 mmHg. LV pressure 99/-3 mmHg. LVEDP 4 mmHg. LVEF is normal with no significant wall motion abnormalities. There is no gradient across the aortic valve. 2. The RCA shows patent stent in the proximal and mid segments. There is a small caliber PDA which has severe proximal stenosis. 3. Left main: The left main is patent. 4. Left circumflex artery: There is ramus intermedius branch which has severe proximal stenosis. This stenosis starts right after the ostium of the ramus until the mid segment. Stenosis severity is a 80 to 90%. Caliber of the vessel is 2.0 mm. The mid left circumflex artery has severe 90% stenosis. The left circumflex artery gives off a first obtuse marginal artery whose caliber is around 1.5 mm 5. LAD: The LAD has a long diffuse disease in the proximal and midsegment. There is mild to moderate disease in the mid LAD is well. The LAD is transapical vessel. The disease severity is around 70%. 6. Abdominal aortogram and lower extremity bilateral runoff. This was performed since we had some difficult gaining access in the right common femoral artery as well as advancing the wire in the right iliac artery. Diffuse atherosclerotic disease in the distal abdominal aorta. There is mild disease in the ostium of the right common iliac artery. No significant disease is noted in the right internal as well as external iliac artery. 50% stenosis in the right common femoral artery. The SFA does not have any significant disease in the proximal and midsegment. There is mild to moderate disease segment in the distal right SFA. The right popliteal artery also has mild disease. There is a 2 vessel runoff below the right knee which is an anterior tibial artery as well as the posterior tibial artery. The deep peroneal artery is a small-caliber vessel. Moderate to severe disease is noted at the ostium of the anterior tibial artery. Stenosis severity around 70 to 80%. Anterior tibial artery becomes the dorsalis pedis artery and the posterior tibial continues and both supply the right foot. 7. The left common iliac artery does not have any significant disease. No significant disease in the left internal iliac as well as external iliac arteries. Normal left common femoral artery and the proximal and mid SFA. Mild to moderate disease in the distal SFA and the left popliteal artery. The popliteal artery divides into an anterior tibial artery as well as tibioperoneal trunk. The tibioperoneal trunk divides into a small caliber deep peroneal artery as well as the posterior tibial artery which supplies the foot. The anterior tibial artery is also free of any significant disease and supplies the foot as well. There is 2 to 2-1/2 vessel runoff below the knee in the left lower extremity. RECOMMENDATIONS: FFR of the LAD is recommended. FFR DETAILS: We took a JR4 guide catheter, a [employer] 0.014 pressure wire and IV heparin for anticoagulation. ACT was 260 seconds. The lesion was crossed with a pressure wire. Baseline FFR was 0.86. Adenosine infusion was started at 140 mcg/kg/min. The infusion was continued for 2 minutes. FFR was 0.76 which is severe. The wire was pulled out and post angiogram revealed no vascular complication. IMPRESSION/CONCLUSION: 1. Acute non-ST elevation WV with severe disease in the LAD, ramus artery, obtuse marginal artery. Patent stent in the RCA. 2. Considering that the patient has aggressive progressive coronary disease and uncontrolled diabetes, I believe the best revascularization approach is with surgery with HUFF to the LAD and saphenous vein grafts to the ramus as well as to the first obtuse marginal artery. 3. I discussed with the family and patient was willing to consider cardiac surgery. 4. I spoke with Dr. Gay at [facility] who accepts the patient for direct admit to the ICU. The Plavix will be held and IV heparin will be started. 5. Smoking cessation was strongly recommended. Job ID: [id number] Dictated Date: 07/18/2016 14:41:23 Records Management Associate Date: 07/19/2016 14:05:07 / simran
--- NOTE | 2016-07-20 07:32 | Discharge Summary ---
Diagnosis/Chief Complaint Date of Admission Jul 18, 2016 at 10:40 Date of Discharge Jul 18, 2016 at 18:55 Admission Diagnosis Admission Diagnosis chest pain. Diabetes. Coronary artery disease. Tobacco usage. Hyperlipidemia. Discharge Diagnosis non-ST elevated [place]. Uncontrolled diabetes. Noncompliance. Tobacco usage. Chronic kidney disease. Severe CAD. Severe proximal disease of LAD. Severe long lesion of ramus internal artery. Severe stenosis of obtuse marginal artery Reason Hospital Visit patient had chest pain that started around 930 a.m. Patient took 3 nitroglycerin which helped the pain. pain came back and patient came to the emergency room. 2 weeks ago patient had chest pain and had a stent put in area Patient has a history of coronary artery disease. Patient is a known diabetic. Patient has history of noncompliance. Patient still smokes. Discharge Summary Procedures cardiac catheterization Consultations cardiology Discharge Physical Examination Allergies: Coded Allergies: NKANo Known Allergies (Verified Allergy, Unknown, 04/27/13) Vitals & I&Os Vital Signs Date Time Temp Pulse Resp B/P Pulse Ox O2 Delivery O2 Flow Rate FiO2 07/18/16 18:00 88 19 122/62 97 Room Air 07/18/16 09:00 98.0 07/17/16 12:26 2 Hospital Course patient needs CABG. Patient transferred to [facility] Labs (last 24 hrs) Laboratory Tests 07/17/16 10:55: Activated Partial Thromboplast Time 24, Alanine Aminotransferase (ALT/SGPT) 13, Albumin 3.6, Alkaline Phosphatase 62, Anion Gap 13, Aspartate Amino Transf (AST/ SGOT) 12, BUN/Creatinine Ratio 8, Basophils # (Auto) 0.1, Basophils (%) (Auto) 1 , Blood Urea Nitrogen 9, Calcium Level 8.7, Carbon Dioxide Level 23, Chloride Level 96L, Creatinine 1.11, Eosinophils # (Auto) 0.1, Eosinophils (%) (Auto) 1, Estimat Glomerular Filtration Rate 48, Glucose Level 543*H, Hematocrit 40, Hemoglobin 13.9, INR Comment 1.0, Lymphocytes # (Auto) 1.5, Lymphocytes (%) ( Auto) 15, Magnesium Level 1.9, Mean Corpuscular Hemoglobin 30, Mean Corpuscular Hemoglobin Concent 35, Mean Corpuscular Volume 87, Mean Platelet Volume 10.2, Monocytes # (Auto) 0.5, Monocytes (%) (Auto) 5, Myoglobin 51.7, Neutrophils # ( Auto) 7.9H, Neutrophils (%) (Auto) 78H, Platelet Count 289, Potassium Level 3.9 , Prothrombin Time 12.9, Red Blood Count 4.62, Red Cell Distribution Width 12.6 , Sodium Level 132L, Total Bilirubin 0.3, Total Protein 6.7, Troponin I < 0.30, White Blood Count 10.1 07/17/16 12:23: Glucometer 418*H 07/17/16 16:50: Troponin I < 0.30 07/17/16 17:04: Glucometer 433*H 07/17/16 21:30: Glucometer 286H 07/17/16 22:46: Troponin I 2.15*H 07/18/16 04:10: Troponin I 2.22*H, Anion Gap 9, BUN/Creatinine Ratio 10, Basophils # (Auto) 0.0 , Basophils (%) (Auto) 0, Blood Urea Nitrogen 8, Calcium Level 8.5, Carbon Dioxide Level 24, Chloride Level 108H, Cholesterol Level 106, Creatinine 0.80, Eosinophils # (Auto) 0.0, Eosinophils (%) (Auto) 0, Estimat Glomerular Filtration Rate > 60, Glucose Level 60*L, HDL Cholesterol 33L, Hematocrit 40, Hemoglobin 13.5, LDL Cholesterol Direct 50, Lymphocytes # (Auto) 1.6, Lymphocytes (%) (Auto) 13, Magnesium Level 1.9, Mean Corpuscular Hemoglobin 30, Mean Corpuscular Hemoglobin Concent 34, Mean Corpuscular Volume 87, Mean Platelet Volume 10.0, Monocytes # (Auto) 0.8, Monocytes (%) (Auto) 7, Neutrophils # (Auto) 9.4H, Neutrophils (%) (Auto) 79H, Phosphorus Level 3.8, Platelet Count 304, Potassium Level 3.7, Red Blood Count 4.58, Red Cell Distribution Width 12.6, Sodium Level 141, Triglycerides Level 136, VLDL Cholesterol 27, White Blood Count 11.9H 07/18/16 11:54: Glucometer 248H 07/18/16 17:27: Activated Partial Thromboplast Time 25, Hematocrit 42, Hemoglobin 14.1, INR Comment 1.0, Mean Corpuscular Hemoglobin 30, Mean Corpuscular Hemoglobin Concent 34, Mean Corpuscular Volume 88, Mean Platelet Volume 10.3, Platelet Count 286, Prothrombin Time 13.1, Red Blood Count 4.72, Red Cell Distribution Width 12.8, White Blood Count 8.4 07/18/16 17:44: Glucometer 199H Laboratory Tests 07/17/16 10:55 07/18/16 04:10 07/18/16 17:27 Pending Labs Laboratory Tests 07/17/16 10:55: Activated Partial Thromboplast Time 24, Alanine Aminotransferase (ALT/SGPT) 13, Albumin 3.6, Alkaline Phosphatase 62, Anion Gap 13, Aspartate Amino Transf (AST/ SGOT) 12, BUN/Creatinine Ratio 8, Basophils # (Auto) 0.1, Basophils (%) (Auto) 1 , Blood Urea Nitrogen 9, Calcium Level 8.7, Carbon Dioxide Level 23, Chloride Level 96, Creatinine 1.11, Eosinophils # (Auto) 0.1, Eosinophils (%) (Auto) 1, Estimat Glomerular Filtration Rate 48, Glucose Level 543, Hematocrit 40, Hemoglobin 13.9, INR Comment 1.0, Lymphocytes # (Auto) 1.5, Lymphocytes (%) ( Auto) 15, Magnesium Level 1.9, Mean Corpuscular Hemoglobin 30, Mean Corpuscular Hemoglobin Concent 35, Mean Corpuscular Volume 87, Mean Platelet Volume 10.2, Monocytes # (Auto) 0.5, Monocytes (%) (Auto) 5, Myoglobin 51.7, Neutrophils # ( Auto) 7.9, Neutrophils (%) (Auto) 78, Platelet Count 289, Potassium Level 3.9, Prothrombin Time 12.9, Red Blood Count 4.62, Red Cell Distribution Width 12.6, Sodium Level 132, Total Bilirubin 0.3, Total Protein 6.7, Troponin I < 0.30, White Blood Count 10.1 07/17/16 12:23: Glucometer 418 07/17/16 16:50: Troponin I < 0.30 07/17/16 17:04: Glucometer 433 07/17/16 21:30: Glucometer 286 07/17/16 22:46: Troponin I 2.15 07/18/16 04:10: Troponin I 2.22, Anion Gap 9, BUN/Creatinine Ratio 10, Basophils # (Auto) 0.0, Basophils (%) (Auto) 0, Blood Urea Nitrogen 8, Calcium Level 8.5, Carbon Dioxide Level 24, Chloride Level 108, Cholesterol Level 106, Creatinine 0.80, Eosinophils # (Auto) 0.0, Eosinophils (%) (Auto) 0, Estimat Glomerular Filtration Rate > 60, Glucose Level 60, HDL Cholesterol 33, Hematocrit 40, Hemoglobin 13.5, LDL Cholesterol Direct 50, Lymphocytes # (Auto) 1.6, Lymphocytes (%) (Auto) 13, Magnesium Level 1.9, Mean Corpuscular Hemoglobin 30, Mean Corpuscular Hemoglobin Concent 34, Mean Corpuscular Volume 87, Mean Platelet Volume 10.0, Monocytes # (Auto) 0.8, Monocytes (%) (Auto) 7, Neutrophils # (Auto) 9.4, Neutrophils (%) (Auto) 79, Phosphorus Level 3.8, Platelet Count 304, Potassium Level 3.7, Red Blood Count 4.58, Red Cell Distribution Width 12.6, Sodium Level 141, Triglycerides Level 136, VLDL Cholesterol 27, White Blood Count 11.9 07/18/16 11:54: Glucometer 248 07/18/16 17:27: Activated Partial Thromboplast Time 25, Hematocrit 42, Hemoglobin 14.1, INR Comment 1.0, Mean Corpuscular Hemoglobin 30, Mean Corpuscular Hemoglobin Concent 34, Mean Corpuscular Volume 88, Mean Platelet Volume 10.3, Platelet Count 286, Prothrombin Time 13.1, Red Blood Count 4.72, Red Cell Distribution Width 12.8, White Blood Count 8.4 07/18/16 17:44: Glucometer 199 Discussion & Recommendations patient transferred to [facility] for open heart surgery Discharge Home Medications: Active Scripts Active Reported Atorvastatin Calcium 80 Mg Tablet 80 Mg PO HS Pantoprazole Sodium 40 Mg Tablet.dr 40 Mg PO DAILY LAST FILLED 05/19/16 #30 Hydrocodon-Acetaminoph 7.5-325 (Hydrocodone/Acetaminophen) 1 Each Tablet 1 Tab PO Q8H PRN Aspirin Ec 81 Mg (Aspirin) 81 Mg Tabec 81 Mg PO DAILY Instructions to patient/family Please see electonic discharge instructions given to patient. Diagnosis/Problems Diagnosis/Problems (1) CKD (chronic kidney disease) stage 3, GFR 30-59 ml/min Status: Chronic (2) Smoking Status: Chronic (3) Non-ST elevation myocardial infarction (NSTEMI) Status: Acute (4) Uncontrolled diabetes mellitus Status: Acute Qualifiers: Clinical Quality Measures AMI/AHF: ASA po Prior to arrival: No DVT/VTE Risk/Contraindication: Risk Factor Score Per Nursin RFS Level Per Nursing on Admit: 3=High MERRICK SIEGEL DO Jul 20, 2016 07:32
== END 2016-07-18 18:55 | disposition short-term general hospital (02) | DRG 282 ==
LOC: EDUNIT# 10:51 → ER 10:52 → ICU 12:09 → UNDOADMOB 12:09 → ICU 12:45 → OBSVTOIN 07-18 10:40 → INTOOBSV 07-18 10:40 → OBSVTOIN 07-18 10:41 → UNDODISIN 07-18 18:55
PROVIDERS: ADMIT Family Medicine; ATTEND Family Medicine
PROC: 4A023N7 Measurement of Cardiac Sampling and Pressure, Left Heart, Percutaneous Approach (ICD-10-PCS; principal; 2016-07-18)
PROC: B2111ZZ Fluoroscopy of Multiple Coronary Arteries using Low Osmolar Contrast (ICD-10-PCS; 2016-07-18)
PROC: B2151ZZ Fluoroscopy of Left Heart using Low Osmolar Contrast (ICD-10-PCS; 2016-07-18)
PROC: B41D1ZZ Fluoroscopy of Aorta and Bilateral Lower Extremity Arteries using Low Osmolar Contrast (ICD-10-PCS; 2016-07-18)
DX: I21.4 Non-ST elevation (NSTEMI) myocardial infarction (principal); I25.10 Atherosclerotic heart disease of native coronary artery without angina pectoris; E11.65 Type 2 diabetes mellitus with hyperglycemia; E11.40 Type 2 diabetes mellitus with diabetic neuropathy, unspecified; Z79.4 Long term (current) use of insulin; N18.3 Chronic kidney disease, stage 3 (moderate); F17.210 Nicotine dependence, cigarettes, uncomplicated; J44.9 Chronic obstructive pulmonary disease, unspecified; K21.9 Gastro-esophageal reflux disease without esophagitis; E78.5 Hyperlipidemia, unspecified; I25.2 Old myocardial infarction; Z95.5 Presence of coronary angioplasty implant and graft; Z91.14 Patient's other noncompliance with medication regimen
CPT/HCPCS: 36415; 71010; 80048; 80053; 80061; 82962; 83735; 83874; 84100; 84484; 85025; 85027; 85610; 85730; 93005; 93041; 93458; 93567; 93571; G0378

== ENCOUNTER 2016-07-29 11:01 | Emergency (ER) | payer MEDICARE ==
[~2016-07-29] VITALS: Ht 170.2 cm; Wt 73.9 kg
[2016-07-29] MEDS ORDERED: morphine INJ 10 MG/ML 1ML (SYR OR VIAL) IVP STA (11:32)
--- NOTE | 2016-07-29 11:39 | ED General ---
General Chief Complaint: Lower Extremity Stated Complaint: POST OP LEFT LEG PAIN/KNOT Nursing Triage Note: TO ED PER W/C WAS DISCHARGE ON WEDNESDAY FROM [facility] AFTER CABG. NOTICED TODAY DRAINAGE NEXT TO L KNEE WHERE AND KNOT IN AREA Nursing Sepsis Screen: No Definite Risk Source of Information: Patient, Family Exam Limitations: No Limitations History of Present Illness Time Seen by Provider: 11:17 Initial Comments 75-year-old female patient presents to the emergency department complains of swelling of the right distal thigh. Reports she was discharged Wednesday from [facility] after coronary artery bypass surgery. Patient reports mild swelling until this a.m. when she noticed increased swelling and tenderness. Location Injury Occurred: denies recent injury since discharge Timing/Duration: 1-3 Hours Modifying Factors: worse with Other (worse with palpation) Allergies and Home Medications Allergies Coded Allergies: NKANo Known Allergies (Verified Allergy, Unknown, 04/27/13) Home Medications Aspirin 81 Mg Tabec 81 MG PO DAILY (Reported) Atorvastatin Calcium 80 Mg Tablet 80 MG PO HS (Reported) Hydrocodone/Acetaminophen 1 Each Tablet 1 TAB PO Q8H PRN PRN PAIN (Reported) Oxycodone HCl/Acetaminophen 1 Each Tablet #14 1 EACH PO Q4H PRN PRN PAIN Prescribed by: CLEVE NAGY on 07/29/16 1307 Pantoprazole Sodium 40 Mg Tablet.dr 40 MG PO DAILY (Reported) LAST FILLED 05/19/16 #30 Constitutional: No chills, No fever, No malaise Respiratory: no symptoms reported Cardiovascular: no symptoms reported Gastrointestinal: no symptoms reported Genitourinary: no symptoms reported Musculoskeletal: no symptoms reported Skin: see HPI change in color (ecchymosis ) lumps Psychiatric/Neurological: No Symptoms Reported All Other Systems Reviewed Negative Unless Noted: Yes (Negative excepted noted.) Past Zzmbhpf-Rvzbyq-Iuvlds Hx Patient Social History Type Used: Cigarettes Recent Foreign Travel: No Contact w/Someone Who Travel: No Recent Infectious Disease Expo: No Recent Hopitalizations: No Immunizations Up To Date Tetanus Booster (TDap): Unknown PED Vaccines UTD: No Date of Pneumonia Vaccine: Jun 02, 2011 Date of Influenza Vaccine: Apr 02, 2016 Seasonal Allergies Seasonal Allergies: No Surgeries HX Surgeries: Yes (CARPAL TUNNEL BILAT. 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 ) Endocrine Disorders: Diabetes, Insulin dep HEENT HX ENT Disorders: Yes HEENT Disorders: Cataract Loss of Vision: Denies Hearing Impairment: Denies Cancer Hx Cancer: No Psychosocial Hx Psychiatric Problems: Yes Behavioral Health Disorders: Anxiety, Depression Integumentary HX Skin/Integumentary Disorder: No Blood Transfusions Hx Blood Disorders: No Adverse Reaction to a Blood Tr: No Reviewed Nursing Assessment Reviewed/Agree w Nursing PMH: Yes Family Medical History Significant Family History: No Pertinent Family Hx Family Medial History: FH: suicide FH: uterine cancer 19 MOTHER FHx: diabetes mellitus 19 MOTHER Physical Exam Vital Signs Vital Sign - Last 12Hours 07/29/16 11:09 Temp 98.0 Pulse 83 Resp 18 B/P 152/82 Pulse Ox 95 O2 Delivery Room Air Capillary Refill : Less Than 3 Seconds General Appearance: No Apparent Distress Chronically ill HEENT: PERRL/EOMI Pharynx Normal Respiratory: Lungs Clear Normal Breath Sounds No Respiratory Distress Cardiovascular: Regular Rate, Rhythm No Edema No Murmur Normal Peripheral Pulses Other (healing midline chest incision consistent with recent history of CABG) Extremity: Normal Capillary Refill Normal Range of Motion No Calf Tenderness No Pedal Edema Swelling (subacute ecchymosis of the bilateral medial thighs. left distal medial thigh shows increased swelling and tenderness. minimal bloody drainage noted from the intact incision. no evidence of cellulitis.) Neurologic/Psychiatric: Alert Oriented x3 No Motor/Sensory Deficits Normal Mood/Affect Skin: Warm/DryNo Cool, No Cyanosis, No Damp, No Diaphoresis, Ecchymosis ( subacute ecchymosis of the bilateral medial thighs. left distal medial thigh shows increased swelling and tenderness. minimal bloody drainage noted from the intact incision. no evidence of cellulitis.)No Mottled, No Pallor, Other ( healing midline chest incision consistent with recent history of CABG) Progress/Results/Core Measures Results/Orders Lab Results Laboratory Tests Test 07/29/16 11:47 07/29/16 13:35 Range/Units Activated Partial Thromboplast Time 32 24-35 SEC Alanine Aminotransferase (ALT/SGPT) 18 0-55 U/L Albumin 4.0 3.2-4.5 G/DL Alkaline Phosphatase 79 40-136 U/L Anion Gap 16 H 5-14 MMOL/L Aspartate Amino Transf (AST/SGOT) 23 5-34 U/L BUN/Creatinine Ratio 11 Basophils # (Auto) 0.0 0.0-0.1 10^3/uL Basophils (%) (Auto) 0 0-10 % Blood Urea Nitrogen 10 7-18 MG/DL Calcium Level 9.0 8.5-10.1 MG/DL Carbon Dioxide Level 26 21-32 MMOL/L Chloride Level 94 L 98-107 MMOL/L Creatinine 0.93 0.60-1.30 MG/DL Eosinophils # (Auto) 0.1 0.0-0.3 10^3/uL Eosinophils (%) (Auto) 1 0-10 % Estimat Glomerular Filtration Rate 59 Glucose Level 177 H 70-105 MG/DL Hematocrit 39 35-52 % Hemoglobin 12.8 11.5-16.0 G/DL INR Comment 1.1 0.8-1.4 Lymphocytes # (Auto) 1.1 1.0-4.0 X 10^3 Lymphocytes (%) (Auto) 10 L 12-44 % Mean Corpuscular Hemoglobin 30 25-34 PG Mean Corpuscular Hemoglobin Concent 33 32-36 G/DL Mean Corpuscular Volume 89 80-99 FL Mean Platelet Volume 8.9 7.4-10.4 FL Monocytes # (Auto) 1.0 0.0-1.0 X 10^3 Monocytes (%) (Auto) 9 0-12 % Neutrophils # (Auto) 8.8 H 1.8-7.8 X 10^3 Neutrophils (%) (Auto) 80 H 42-75 % Platelet Count 539 H 130-400 10^3/uL Potassium Level 3.9 3.6-5.0 MMOL/L Prothrombin Time 13.4 12.2-14.7 SEC Red Blood Count 4.32 L 4.35-5.85 10^6/uL Red Cell Distribution Width 14.2 10.0-14.5 % Sodium Level 136 135-145 MMOL/L Total Bilirubin 1.1 H 0.1-1.0 MG/DL Total Protein 7.1 6.4-8.2 G/DL White Blood Count 11.0 4.3-11.0 10^3/uL Glucometer 166 H 70-110 MG/DL My Orders Orders-CLEVE NAGY Cbc With Automated Diff (07/29/16 11:32) Comprehensive Metabolic Panel (07/29/16 11:32) Protime With Inr (07/29/16 11:32) Partial Thromboplastin Time (07/29/16 11:32) Saline Lock/Iv-Start (07/29/16 11:32) Morphine Injection (Morphine Injection (07/29/16 11:32) Us Left Lower Ext [id number] (07/29/16 11:32) Ondansetron Injection (Zofran Injectio (07/29/16 13:30) Accucheck Stat ONCE (07/29/16 13:30) Medications Given in ED Current Medications Medications Dose Ordered Sig/Roman Route Start Time Stop Time Status Last Admin Dose Admin Ondansetron HCl 4 mg ONCE ONCE IVP 07/29/16 13:30 07/29/16 13:31 DC 07/29/16 13:21 4 MG Vital Signs/I&O Vital Sign - Last 12Hours 07/29/16 07/29/16 11:09 13:49 Temp 98.0 Pulse 83 83 Resp 18 18 B/P 152/82 Pulse Ox 95 96 O2 Delivery Room Air Blood Pressure Mean: 105 Diagnostic Imaging Diagonstic Imaging: Ultrasound Plain Films/CT/US/NM/MRI: leg Comments FINDINGS: Corresponding to the site of bleeding and palpable abnormality, there is a complex fluid collection that, with the history provided, is presumptively a hematoma measuring 5.5 x 4.3 x 3.6 cm. It shows a linear tract extending ventrally to approach if not extend through the skin surface. It shows no internal color Doppler blood flow and shows no communication with any vascular structure. IMPRESSION: There is a complex fluid collection, presumptively a hematoma; however, its sterility could not be confirmed by imaging. Correlate clinically. Dictated on workstation # [id number] Departure Communication Progress Notes Laboratory and diagnostic findings discussed with the patient. Patient reports pain is improved with medications, but does complain of nausea after morphine given. Patient reports she has not had anything to eat or drink today. Does have nausea when pain medication is given on an empty stomach. Patient given Zofran, frankie crackers and peanut butter in the emergency department. Plan for discharge home with follow-up as an outpatient with Dr. Batista. Patient wishes to wrap the left lower extremity with Maurilio wraps when she arrives home. Patient given two 6 inch Maurilio wraps and one 3 inch Maurilio wrap. All return precautions were discussed with the patient as described in the discharge instructions of this report. Patient voices understanding and agrees with the treatment plan. Impression Impression: Primary Impression: Postoperative hematoma Qualified Code: L76.32 - Postprocedural hematoma of skin and subcutaneous tissue following other procedure Disposition: HOME, SELF-CARE Condition: Improved Departure-Patient Inst. Decision time for Depature: 13:06 Referrals: MERRICK SIEGEL DO (PCP/Family) Primary Care Physician ODILIA AGUAYO MD Patient Instructions: HEMATOMA Add. Discharge Instructions: All discharge instructions reviewed with patient and/or family. Voiced understanding. Continue home medications. Elevate the left leg on pillows, ice pack for 20 minute intervals as needed for pain and swelling. Use Maurilio wrap as instructed. Contact Dr. Batista and Dr. Dr. Siegel for follow-up appointments. Call today for appointment times. Return to the emergency department for worsened pain, swelling, redness, drainage, fever, or any other concerns. Scripts Oxycodone HCl/Acetaminophen (Percocet 5-325 mg Tablet)1 Each Tablet1 Each PO Q4H PRN PAIN #14 TAB Ref 0 Prov:CLEVE NAGY 07/29/16 CLEVE NAGY Jul 29, 2016 11:39
[2016-07-29 11:55] LABS: BASOPHILS % (AUTO) 0 % (0-10); EOSINOPHILS # (AUTO) 0.1 10^3/uL (0.0-0.3); EOSINOPHILS % (AUTO) 1 % (0-10); LYMPHOCYTES # (AUTO) 1.1 X 10^3 (1.0-4.0); LYMPHOCYTES % (AUTO) 10 % (12-44); MEAN CORPUSCULAR HEMOGLOBIN 30 PG (25-34); MEAN CORPUSCULAR HGB CONC 33 G/DL (32-36); MEAN CORPUSCULAR VOLUME 89 FL (80-99); MEAN PLATELET VOLUME 8.9 FL (7.4-10.4); MONOCYTES % (AUTO) 9 % (0-12); NEUTROPHILS # (AUTO) 8.8 X 10^3 (1.8-7.8); NEUTROPHILS % (AUTO) 80 % (42-75); PLATELET COUNT 539 10^3/uL (130-400); RED BLOOD COUNT 4.32 10^6/uL (4.35-5.85); RED CELL DISTRIBUTION WIDTH 14.2 % (10.0-14.5)
[2016-07-29 12:03] LABS: INR 1.1 (0.8-1.4); PROTHROMBIN TIME PATIENT 13.4 SEC (12.2-14.7)
[2016-07-29 12:11] LABS: BILIRUBIN,TOTAL 1.1 MG/DL (0.1-1.0); CREATININE SERUM 0.93 MG/DL (0.60-1.30); POTASSIUM 3.9 MMOL/L (3.6-5.0); TOTAL PROTEIN 7.1 G/DL (6.4-8.2)
--- NOTE | 2016-07-29 12:52 | Diagnostic Imaging Report ---
INDICATION: Bleeding. The patient had a recent CABG and greater saphenous harvest with palpable hematoma symone-incisional. FINDINGS: Corresponding to the site of bleeding and palpable abnormality, there is a complex fluid collection that, with the history provided, is presumptively a hematoma measuring 5.5 x 4.3 x 3.6 cm. It shows a linear tract extending ventrally to approach if not extend through the skin surface. It shows no internal color Doppler blood flow and shows no communication with any vascular structure. IMPRESSION: There is a complex fluid collection, presumptively a hematoma; however, its sterility could not be confirmed by imaging. Correlate clinically. Dictated by: Dictated on workstation # [id number]
[2016-07-29] MEDS ORDERED: OXYC-197 PO (13:07)
[2016-07-29] MEDS ORDERED: ONDANSETRON 4 MG/2 ML (SDV) Z0FRAN IVP ONE (13:30)
[2016-07-29 13:49] VITALS: BP 150/82
== END 2016-07-29 13:49 | disposition home or self-care (01) ==
LOC: EDUNIT# 11:01 → ER 11:05
DX: I97.631 Postprocedural hematoma of a circulatory system organ or structure following cardiac bypass (principal); J44.9 Chronic obstructive pulmonary disease, unspecified; I25.10 Atherosclerotic heart disease of native coronary artery without angina pectoris; E11.9 Type 2 diabetes mellitus without complications; Z79.4 Long term (current) use of insulin; Z79.84 Long term (current) use of oral hypoglycemic drugs; Z79.899 Other long term (current) drug therapy
CPT/HCPCS: 36415; 76881; 80053; 82962; 85025; 85610; 85730; 96374; 96375

== ENCOUNTER → 2016-08-25 | Outpatient (CLI) | payer MEDICARE ==
[~2016-08-25] MED LIST changes: +OXYC-197 PO
--- NOTE | 2016-08-25 12:48 | Diagnostic Imaging Report ---
INDICATION: Follow-up cardiac surgery. PA and lateral chest obtained at 09:01 a.m. and compared with 07/17/2016. Patient is now status post sternotomy. The heart is top limits of normal in size. There is some mild linear scarring or atelectasis in the left base. The lungs are otherwise clear. There is no pneumothorax. There is a trace of pleural fluid on the left side. There is no significant right-sided effusion. IMPRESSION: Borderline heart size with post sternotomy change. No sign of edema or consolidation. There is some mild linear scarring or atelectasis in the left base. There is a trace of pleural fluid on the left side. Dictated by: Dictated on workstation # [id number]
== END ==
LOC: CARD 08:29
PROVIDERS: ATTEND Nurse Practitioner
DX: I25.10 Atherosclerotic heart disease of native coronary artery without angina pectoris (principal)
CPT/HCPCS: 71020; 93005

== ENCOUNTER 2016-09-01 19:04 | Emergency (ER) | payer MEDICARE ==
[~2016-09-01] VITALS: Ht 165.1 cm; Wt 63.5 kg
--- NOTE | 2016-09-01 20:28 | ED General ---
General Chief Complaint: Chest Wall/Rib Pain Stated Complaint: L SIDE CHEST/RIB PAIN Source of Information: Patient Exam Limitations: No Limitations History of Present Illness Time Seen by Provider: 20:25 Initial Comments To ER with c/o left lower chest pain that began earlier today while at rest at 530 p.m. Pain was dull and 10/10. THere were no modifying factors. Pain improved to 4/10 currently but she isnt sure why. No associated chest pain or shortness of breath. She recently had CABG by Dr Gay in [place] 1 month ago and has felt overall much better without any chest pain at all since then. THe pain she had tonight was diffferent than her previous 2 MIs. She also reports that she fell a few days ago and struck the back of her head after she landed on her buttocks. She complains of pain to the tailbone only. Timing/Duration: 4-6 Hours Severity: Severe Allergies and Home Medications Allergies Coded Allergies: NKANo Known Allergies (Verified Allergy, Unknown, 04/27/13) Home Medications Aspirin 81 Mg Tabec 81 MG PO DAILY (Reported) Atorvastatin Calcium 80 Mg Tablet 80 MG PO HS (Reported) Hydrocodone/Acetaminophen 1 Each Tablet 1 TAB PO Q8H PRN PRN PAIN (Reported) Oxycodone HCl/Acetaminophen 1 Each Tablet #14 1 EACH PO Q4H PRN PRN PAIN Prescribed by: CLEVE NAGY on 07/29/16 1307 Pantoprazole Sodium 40 Mg Tablet. 40 MG PO DAILY (Reported) LAST FILLED 05/19/16 #30 Constitutional: see HPINo chills, No fever EENTM: see HPI Respiratory: see HPINo cough, No dyspnea on exertion, No hemoptysis, No orthopnea, No phlegm, No short of breath, No stridor, No wheezing Cardiovascular: see HPI chest painNo edema, No Hx of Intervention, No palpitations Genitourinary: no symptoms reported Musculoskeletal: no symptoms reported Skin: no symptoms reported Psychiatric/Neurological: No Symptoms Reported Hematologic/Lymphatic: No Symptoms Reported Past Qrpsjfi-Zhwfmh-Mvkzoh Hx Patient Social History Type Used: Cigarettes Recent Foreign Travel: No Contact w/Someone Who Travel: No Recent Hopitalizations: No Immunizations Up To Date Tetanus Booster (TDap): Unknown PED Vaccines UTD: No Date of Pneumonia Vaccine: Jun 02, 2011 Date of Influenza Vaccine: Apr 02, 2016 Seasonal Allergies Seasonal Allergies: No Surgeries HX Surgeries: Yes (CARPAL TUNNEL BILAT. 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 ) Endocrine Disorders: Diabetes, Insulin dep HEENT HX ENT Disorders: Yes HEENT Disorders: Cataract Loss of Vision: Denies Hearing Impairment: Denies Cancer Hx Cancer: No Psychosocial Hx Psychiatric Problems: Yes Behavioral Health Disorders: Anxiety, Depression Integumentary HX Skin/Integumentary Disorder: No Blood Transfusions Hx Blood Disorders: No Adverse Reaction to a Blood Tr: No Family Medical History Significant Family History: No Pertinent Family Hx Family Medial History: FH: suicide FH: uterine cancer 19 MOTHER FHx: diabetes mellitus 19 MOTHER Physical Exam Vital Signs Capillary Refill : General Appearance: No Apparent Distress WD/WN Eyes: Bilateral Eye EOMI, Bilateral Eye Normal Inspection, Bilateral Eye PERRL HEENT: PERRL/EOMI TMs Normal Neck: Full Range of Motion Normal Inspection Respiratory: No Accessory Muscle Use No Respiratory Distress Other (the chest is nontender to palpation. There is a healed midline sternotomy incision without erythema or drainage or sign of infection. There are 2 smaller incisions to the left lower chest wall which I assume to be from chest tubes. Regardless, they are clean dry and intact without erythema or tenderness.) Cardiovascular: Regular Rate, Rhythm Normal Peripheral Pulses Gastrointestinal: Normal Bowel Sounds Non Tender Soft Other (the area is no ecchymosis erythema or distention to the abdomen the abdomen is diffusely nontender to palpation as is the entire chest wall.) Extremity: Normal Capillary Refill Normal Inspection Neurologic/Psychiatric: Alert Oriented x3 Progress/Results/Core Measures Results/Orders Lab Results Laboratory Tests Test 09/01/16 20:05 09/01/16 22:00 Range/Units Activated Partial Thromboplast Time 25 24-35 SEC Alanine Aminotransferase (ALT/SGPT) 8 0-55 U/L Albumin 3.9 3.2-4.5 G/DL Alkaline Phosphatase 93 40-136 U/L Anion Gap 12 5-14 MMOL/L Aspartate Amino Transf (AST/SGOT) 9 5-34 U/L BUN/Creatinine Ratio 8 Basophils # (Auto) 0.1 0.0-0.1 10^3/uL Basophils (%) (Auto) 1 0-10 % Blood Urea Nitrogen 7 7-18 MG/DL Calcium Level 9.3 8.5-10.1 MG/DL Carbon Dioxide Level 23 21-32 MMOL/L Chloride Level 97 L 98-107 MMOL/L Creatinine 0.93 0.60-1.30 MG/DL Eosinophils # (Auto) 0.3 0.0-0.3 10^3/uL Eosinophils (%) (Auto) 3 0-10 % Estimat Glomerular Filtration Rate 59 Glucose Level 166 H 70-105 MG/DL Hematocrit 39 35-52 % Hemoglobin 13.0 11.5-16.0 G/DL INR Comment 1.0 0.8-1.4 Lymphocytes # (Auto) 1.8 1.0-4.0 X 10^3 Lymphocytes (%) (Auto) 17 12-44 % Magnesium Level 2.1 1.8-2.4 MG/DL Mean Corpuscular Hemoglobin 30 25-34 PG Mean Corpuscular Hemoglobin Concent 34 32-36 G/DL Mean Corpuscular Volume 89 80-99 FL Mean Platelet Volume 9.5 7.4-10.4 FL Monocytes # (Auto) 1.0 0.0-1.0 X 10^3 Monocytes (%) (Auto) 10 0-12 % Myoglobin 40.4 10.0-92.0 NG/ML Neutrophils # (Auto) 7.5 1.8-7.8 X 10^3 Neutrophils (%) (Auto) 71 42-75 % Platelet Count 313 130-400 10^3/uL Potassium Level 4.5 3.6-5.0 MMOL/L Prothrombin Time 12.6 12.2-14.7 SEC Red Blood Count 4.32 L 4.35-5.85 10^6/uL Red Cell Distribution Width 14.0 10.0-14.5 % Sodium Level 132 L 135-145 MMOL/L Total Bilirubin 0.3 0.1-1.0 MG/DL Total Protein 7.6 6.4-8.2 G/DL Troponin I < 0.30 <0.30 NG/ML White Blood Count 10.5 4.3-11.0 10^3/uL My Orders Orders-LASHAUN VELA EVENING OR NIGHT NURSE SUPERVISOR Cbc With Automated Diff (09/01/16 20:24) Magnesium (09/01/16 20:24) Chest 1 View, Ap/Pa Only (09/01/16 20:24) Ekg Tracing (09/01/16 20:24) Cardiac Profile 1 (09/01/16 20:24) Comprehensive Metabolic Panel (09/01/16 20:24) Myoglobin Serum (09/01/16 20:24) Protime With Inr (09/01/16 20:24) Partial Thromboplastin Time (09/01/16 20:24) O2 (09/01/16 20:24) Monitor-Rhythm Ecg Trace Only (09/01/16 20:24) Lipid Panel (09/02/16 06:00) Saline Lock/Iv-Start (09/01/16 20:24) Ct Head Wo (09/01/16 20:24) Sacrum And Coccyx (09/01/16 20:24) Ketorolac Injection (Toradol Injection) (09/01/16 20:45) Troponin I (09/01/16 21:46) Medications Given in ED Current Medications Medications Dose Ordered Sig/Roman Route Start Time Stop Time Status Last Admin Dose Admin Ketorolac Tromethamine 30 mg ONCE ONCE IVP 09/01/16 20:45 09/01/16 20:46 DC 09/01/16 21:11 30 MG Departure Communication Progress Notes [id number] discussed the case with Dr. Browne who is on-call for cardiology. There are no EKG changes and if the repeat troponin is negative he would agree with discharge to home with close cardiac follow-up. This would be the patient's preference as well. Impression Impression: Primary Impression: Chest pain Qualified Code: R07.9 - Chest pain, unspecified Disposition: 01 HOME, SELF-CARE Condition: Stable Departure-Patient Inst. Decision time for Depature: 22:41 Referrals: MERRICK SIEGEL DO (PCP/Family) Primary Care Physician Patient Instructions: Chest Pain (DC) Add. Discharge Instructions: 1. Follow up with Dr hassan. Call tomorrow morning for recheck. Return to ER for any symptoms that worry you. All discharge instructions reviewed with patient and/or family. Voiced understanding. Copy Copies To 1: DORA HASSAN MD FACP FACC CCDS LASHAUN VELA APRN Sep 01, 2016 20:28
[2016-09-01 20:30] LABS: BASOPHILS # (AUTO) 0.1 10^3/uL (0.0-0.1); BASOPHILS % (AUTO) 1 % (0-10); EOSINOPHILS # (AUTO) 0.3 10^3/uL (0.0-0.3); EOSINOPHILS % (AUTO) 3 % (0-10); LYMPHOCYTES # (AUTO) 1.8 X 10^3 (1.0-4.0); LYMPHOCYTES % (AUTO) 17 % (12-44); MEAN CORPUSCULAR HEMOGLOBIN 30 PG (25-34); MEAN CORPUSCULAR HGB CONC 34 G/DL (32-36); MEAN CORPUSCULAR VOLUME 89 FL (80-99); MEAN PLATELET VOLUME 9.5 FL (7.4-10.4); MONOCYTES % (AUTO) 10 % (0-12); NEUTROPHILS # (AUTO) 7.5 X 10^3 (1.8-7.8); NEUTROPHILS % (AUTO) 71 % (42-75); PLATELET COUNT 313 10^3/uL (130-400); RED BLOOD COUNT 4.32 10^6/uL (4.35-5.85); WHITE BLOOD COUNT 10.5 10^3/uL (4.3-11.0)
[2016-09-01 20:33] LABS: PROTHROMBIN TIME PATIENT 12.6 SEC (12.2-14.7)
[2016-09-01 20:41] LABS: ALANINE AMINOTRANSFERASE 8 U/L (0-55); ALBUMIN 3.9 G/DL (3.2-4.5); ANION GAP 12 MMOL/L (5-14); ASPARTATE AMINO TRANSFERASE 9 U/L (5-34); BILIRUBIN,TOTAL 0.3 MG/DL (0.1-1.0); BLOOD UREA NITROGEN 7 MG/DL (7-18); BUN/CREATININE RATIO 8; CALCIUM 9.3 MG/DL (8.5-10.1); CARBON DIOXIDE 23 MMOL/L (21-32); CHLORIDE 97 MMOL/L (98-107); CREATININE SERUM 0.93 MG/DL (0.60-1.30); GFR ESTIMATED 59; GLUCOSE 166 MG/DL (70-105); MAGNESIUM 2.1 MG/DL (1.8-2.4); POTASSIUM 4.5 MMOL/L (3.6-5.0); SODIUM 132 MMOL/L (135-145); TOTAL PROTEIN 7.6 G/DL (6.4-8.2)
[2016-09-01] MEDS ORDERED: KETOROLAC 30 MG/ML VIAL IVP ONE (20:45)
[2016-09-01 20:47] LABS: MYOGLOBIN SERUM 40.4 NG/ML (10.0-92.0)
--- NOTE | 2016-09-01 21:23 | Diagnostic Imaging Report ---
INDICATION: 75-year-old female injured in fall, presents with chest pain COMPARISONS: 08/25/16 FINDINGS: Single view of the chest shows a senescent chest with emphysematous changes and chronic parenchymal change. No consolidations are seen. There is a previous median sternotomy for a CABG. Aortic calcific atherosclerosis seen. Soft tissues and bony thorax are senescent. IMPRESSION: Senescent chest with COPD and chronic parenchymal changes with previous CABG but no evidence of acute cardiopulmonary disease. Dictated by: Dictated on workstation # [id number]
--- NOTE | 2016-09-01 21:35 | Diagnostic Imaging Report ---
PROCEDURE: CT head without contrast. TECHNIQUE: Multiple contiguous axial images were obtained through the brain without the use of intravenous contrast. INDICATION: 75-year-old female complains of pain in the posterior side of the right head, injured in a fall. COMPARISON: 04/06/2015 FINDINGS: Midline structures are not displaced. There are senescent changes of the brain with involutional changes with generalized atrophy. There is a slight frontal and temporal lobe predominance to the generalized atrophy. Lay-white differentiation is well-maintained. There is no sulcal effacement. There is background chronic microvascular ischemic change. There are no abnormal extra-axial fluid collections or hemorrhage. Basilar cisterns appear normal. There is calcific atherosclerosis within the carotid siphons and visualized vertebral arteries. The sinuses, orbits and mastoid air cells are normal. Bone windows show no calvarial changes. IMPRESSION: 1. Senescent brain with involutional changes and generalized atrophy with background chronic microvascular ischemic change. 2. There is frontal and temporal lobe predominance to the generalized atrophy. 3. Calcific atherosclerosis within the carotid siphons and visualized vertebral arteries. No acute findings identified by nonenhanced CT criteria. Dictated by: Dictated on workstation # [id number]
--- NOTE | 2016-09-01 21:38 | Diagnostic Imaging Report ---
INDICATION: 75-year-old female injured in fall presents with pain in the tailbone. COMPARISON: None. FINDINGS: AP and lateral views of the coccyx are provided. The film is slightly underpenetrated which limits assessment. There is cortical irregularity within the sacrococcygeal junction which may be chronic. Degenerative changes in the lumbosacral spine noted. Both femoral heads appear well-seated within the respective acetabula. Vascular calcifications of the iliac and visualized femoral arteries are extensive. Pelvic phleboliths are also noted. IMPRESSION: Cortical irregularity in the sacrococcygeal junction seen on the lateral view is felt to be chronic however if there is persistent pain, a CT of the pelvis is recommended. Additional nonemergent findings, as described above. Dictated by: Dictated on workstation # [id number]
[2016-09-01 22:56] VITALS: BP 93/53
== END 2016-09-01 22:56 | disposition home or self-care (01) ==
LOC: EDUNIT# 19:04 → ER 19:05
DX: R07.9 Chest pain, unspecified (principal); S09.90XA Unspecified injury of head, initial encounter; S39.92XA Unspecified injury of lower back, initial encounter; I65.23 Occlusion and stenosis of bilateral carotid arteries; I25.10 Atherosclerotic heart disease of native coronary artery without angina pectoris; I25.2 Old myocardial infarction; E11.9 Type 2 diabetes mellitus without complications; J44.9 Chronic obstructive pulmonary disease, unspecified; Z79.82 Long term (current) use of aspirin; Z79.899 Other long term (current) drug therapy; Z95.1 Presence of aortocoronary bypass graft; W01.0XXA Fall on same level from slipping, tripping and stumbling without subsequent striking against object, initial encounter; Y92.009 Unspecified place in unspecified non-institutional (private) residence as the place of occurrence of the external cause; Y99.8 Other external cause status
CPT/HCPCS: 36415; 70450; 71010; 72220; 80053; 83735; 83874; 84484; 85025; 85610; 85730; 93005; 93041; 96374

== ENCOUNTER 2017-02-14 18:26 | Emergency (ER) | payer MEDICARE ==
[~2017-02-14] VITALS: Ht 165.1 cm; Wt 63.7 kg
[~2017-02-14 18:26] MED LIST changes: -METO-270 PO; +METO-387 PO
[2017-02-14] MEDS ORDERED: fentaNYL INJECTION 100 MCG/2 ML AMP IV STA (19:31)
[2017-02-14] MEDS ORDERED: NS IV 1000 ML 1,000 ML IV ONE (19:31)
--- NOTE | 2017-02-14 19:43 | ED Fall/Injury ---
General Chief Complaint: Trauma-Non Activation Stated Complaint: FALL Nursing Triage Note: patient reports falling x 2 at 1700. patient reports hitting head x 2, denies n/v. patient also c/o coccyx pain. patient denies loc and chronic neck pain. patient reports generalized weakness and sluggishness over the last couple days. patient also reports starting lyrica 3 days ago and isn't sure if the medication is causing the problems Source: patient, family Exam Limitations: no limitations History of Present Illness Time seen by provider: 19:25 Initial Comments 76-year-old female patient presents to the emergency department complaints of frequent falls with to most recent falls occurring at 1700 tonight. Patient reports hitting her head 2. Does report falling yesterday as well. Denies loss of consciousness, confusion. Does report increased generalized weakness and feeling sluggishness over the last couple of days. States she has not taken her hydrocodone the last couple of days due to starting Lyrica and feeling better with the Lyrica alone. Does report feeling jittery, shaky, nauseated irritable, and having difficulty sleeping. Location Injury Occurred: home Occurred: other (fell twice this afternoon) Injuries/Pain Location: head, lower extremity (complains of right hip pain) Context: lost balance, tripped Loss of Consciousness: no loss of consciousness Modifying Factors: Worse With Movement (increased right hip pain with movement) Allergies and Home Medications Allergies Coded Allergies: NKANo Known Allergies (Verified Allergy, Unknown, 04/27/13) Home Medications Aspirin 81 Mg Tabec, 81 MG PO DAILY, (Reported) Atorvastatin Calcium 80 Mg Tablet, 80 MG PO HS, (Reported) Hydrocodone/Acetaminophen 1 Each Tablet, 1 TAB PO Q8H PRN for PAIN, (Reported) Oxycodone HCl/Acetaminophen 1 Each Tablet, 1 EACH PO Q4H PRN for PAIN, #14 Ref 0 Prescribed by: CLEVE NAGY on 07/29/16 1307 Pantoprazole Sodium 40 Mg Tablet.dr, 40 MG PO DAILY, (Reported) LAST FILLED 05/19/16 #30 Constitutional: No diaphoresis, dizziness (2 days), No fever, malaise, weakness (generalized weakness 2 days) Eyes: No Symptoms Reported Ears, Nose, Mouth, Throat: denies ear pain, denies ear discharge, denies nose pain, denies nose discharge, denies epistaxis, denies mouth pain, denies loose teeth, denies throat pain Respiratory: No cough, No dyspnea on exertion, No short of breath, No wheezing Cardiovascular: No chest pain, No syncope Gastrointestinal: no symptoms reported Genitourinary: no symptoms reported Musculoskeletal: see HPI, No back pain (patient has chronic back pain, but denies pain being worse.), joint pain (right hip pain), No joint swelling, No neck pain Skin: No change in color, No lesions Psychiatric/Neurological: Headache, Denies Numbness, Denies Paresthesia, Denies Seizure, Denies Tingling, Denies Weakness (denies one-sided weakness) All Other Systems Reviewed Negative Unless Noted: Yes (Negative excepted noted.) Past Weejfxu-Jnxujw-Owirjz Hx Patient Social History Alcohol Use: Denies Use Recreational Drug Use: No Smoking Status: Current Everyday Smoker Type Used: Cigarettes Recent Foreign Travel: No Contact w/Someone Who Travel: No Recent Infectious Disease Expo: No Recent Hopitalizations: No Immunizations Up To Date Tetanus Booster (TDap): Unknown PED Vaccines UTD: No Date of Pneumonia Vaccine: Jun 02, 2011 Date of Influenza Vaccine: Apr 02, 2016 Seasonal Allergies Seasonal Allergies: No Surgeries HX Surgeries: Yes (CARPAL TUNNEL BILAT. KNEE SURGERY ) Surgeries: Appendectomy, Cardiac, CABG, Section, Coronary Stent, Hysterectomy, Oophorectomy, Orthopedic Respiratory Hx Respiratory Disorders: Yes Respiratory Disorders: COPD Cardiovascular Hx Cardiac Disorders: Yes (HEART CATH X2, UNKNOWN AMOUNT OF STENTS) Cardiac Disorders: Coronary Artery Disease, Heart Attack, High Cholesterol, Irregular Heartbeat Neurological Hx Neurological Disorders: Yes Neurological Disorders: Neuropathy, Seizure Disorder, TIA Reproductive System Hx Reproductive Disorders: No Sexually Transmitted Disease: No HIV/AIDS: No Female Reproductive Disorders: Denies 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 ) Endocrine Disorders: Diabetes, Insulin dep HEENT HX ENT Disorders: Yes HEENT Disorders: Cataract Loss of Vision: Denies Hearing Impairment: Denies Cancer Hx Cancer: No Psychosocial Hx Psychiatric Problems: Yes Behavioral Health Disorders: Anxiety, Depression Integumentary HX Skin/Integumentary Disorder: No Blood Transfusions Hx Blood Disorders: No Adverse Reaction to a Blood Tr: No Reviewed Nursing Assessment Reviewed/Agree w Nursing PMH: Yes Family Medical History Significant Family History: No Pertinent Family Hx Family Medial History: FH: suicide FH: uterine cancer 19 MOTHER FHx: diabetes mellitus 19 MOTHER Physical Exam Vital Signs Capillary Refill : Less Than 3 Seconds General Appearance: WD/WN, no apparent distress HEENT: PERRL/EOMI, normal ENT inspection, TMs normal, pharynx normal, other ( posterior scalp shows mild tenderness and swelling) Neck: full range of motion, supple, normal inspection, tender lateral, No tender midline Cardiovascular: normal peripheral pulses, regular rate, rhythm, no edema, no murmur Respiratory: chest non-tender, lungs clear, normal breath sounds, no respiratory distress, no accessory muscle use Peripheral Pulses: 2+ Dorsalis Pedis (R), 2+ Left Dors-Pedis (L), 2+ Radial Pulses (R), 2+ Radial Pulses (L) Gastrointestinal: normal bowel sounds, non tender, soft, no organomegaly, No distended Back: normal inspection, no vertebral tenderness Extremities: normal inspection, no pedal edema, normal capillary refill, pelvis stable, other (right lateral and posterior hip tender to palpation without evidence of ecchymosis or swelling. Slight decrease in range of motion of the right hip.) Neurologic/Psychiatric: shrimper II-XII nml as tested, no motor/sensory deficits, alert, normal mood/affect, oriented x 3 Skin: normal color, warm/dry [place] Coma Score Best Eye Response: (4) Open Spontaneously Best Verbal Response: (5) Oriented Best Motor Response: (6) Obeys Commands Kitty Total: 15 Progress/Results/Core Measures Results/Orders Lab Results Laboratory Tests Test 02/14/17 20:15 02/14/17 20:45 Range/Units White Blood Count 10.1 4.3-11.0 10^3/uL Red Blood Count 4.58 4.35-5.85 10^6/uL Hemoglobin 14.1 11.5-16.0 G/DL Hematocrit 41 35-52 % Mean Corpuscular Volume 89 80-99 FL Mean Corpuscular Hemoglobin 31 25-34 PG Mean Corpuscular Hemoglobin Concent 35 32-36 G/DL Red Cell Distribution Width 12.3 10.0-14.5 % Platelet Count 269 130-400 10^3/uL Mean Platelet Volume 10.1 7.4-10.4 FL Neutrophils (%) (Auto) 52 42-75 % Lymphocytes (%) (Auto) 36 12-44 % Monocytes (%) (Auto) 9 0-12 % Eosinophils (%) (Auto) 3 0-10 % Basophils (%) (Auto) 1 0-10 % Neutrophils # (Auto) 5.2 1.8-7.8 X 10^3 Lymphocytes # (Auto) 3.6 1.0-4.0 X 10^3 Monocytes # (Auto) 0.9 0.0-1.0 X 10^3 Eosinophils # (Auto) 0.3 0.0-0.3 10^3/uL Basophils # (Auto) 0.1 0.0-0.1 10^3/uL Sodium Level 130 L 135-145 MMOL/L Potassium Level 4.0 3.6-5.0 MMOL/L Chloride Level 97 L 98-107 MMOL/L Carbon Dioxide Level 24 21-32 MMOL/L Anion Gap 9 5-14 MMOL/L Blood Urea Nitrogen 7 7-18 MG/DL Creatinine 0.85 0.60-1.30 MG/DL Estimat Glomerular Filtration Rate > 60 BUN/Creatinine Ratio 8 Glucose Level 100 70-105 MG/DL Calcium Level 9.1 8.5-10.1 MG/DL Total Bilirubin 0.2 0.1-1.0 MG/DL Aspartate Amino Transf (AST/SGOT) 14 5-34 U/L Alanine Aminotransferase (ALT/SGPT) 11 0-55 U/L Alkaline Phosphatase 66 40-136 U/L Total Protein 6.8 6.4-8.2 GM/DL Albumin 3.7 3.2-4.5 GM/DL Urine Color YELLOW Urine Clarity CLEAR Urine pH 6.5 5-9 Urine Specific [place] 1.005 L 1.016-1.022 Urine Protein NEGATIVE NEGATIVE Urine Glucose (UA) NEGATIVE NEGATIVE Urine Ketones NEGATIVE NEGATIVE Urine Nitrite NEGATIVE NEGATIVE Urine Bilirubin NEGATIVE NEGATIVE Urine Urobilinogen NORMAL NORMAL MG/DL Urine Leukocyte Esterase NEGATIVE NEGATIVE Urine RBC (Auto) NEGATIVE NEGATIVE Urine RBC NONE /HPF Urine WBC NONE /HPF Urine Squamous Epithelial Cells RARE /HPF Urine Crystals NONE /LPF Urine Bacteria NONE /HPF Urine Casts NONE /LPF Urine Mucus NEGATIVE /LPF Urine Culture Indicated NO My Orders Orders - CLEVE NAGY Pelvis (02/14/17 19:31) Hip, Right, 2 Views (02/14/17 19:31) Fentanyl Injection (Sublimaze Injection (02/14/17 19:31) Saline Lock/Iv-Start (02/14/17 19:31) Ns Iv 1000 Ml (Sodium Chloride 0.9%) (02/14/17 19:31) Cbc With Automated Diff (02/14/17 19:31) Comprehensive Metabolic Panel (02/14/17 19:31) Ua Culture If Indicated (02/14/17 19:31) Sacrum And Coccyx (02/14/17 19:43) Ct Head/Cervical Spine Wo (02/14/17 19:21) Iv Push Tunneller Ed (02/14/17 ) Medications Given in ED Vital Signs/I&O Blood Pressure Mean: 77 Diagnostic Imaging Diagonstic Imaging: CT Plain Films/CT/US/NM/MRI: c-spine, head Comments FINDINGS: CT head: The ventricles and cortical sulci are diffusely prominent, compatible with age-related volume loss. There are confluent areas of abnormal, low attenuation in the periventricular white matter. This is consistent with chronic small vessel ischemic changes. There is no midline shift or mass- effect. No acute intra-axial hemorrhage is seen. There are no abnormal areas of increased or decreased density to suggest acute hemorrhage or edema. No extra- axial masses or collections are present. The bony calvarium is intact. The visualized paranasal sinuses are unremarkable. The mastoid air cells are clear. CT cervical spine: Evaluation of the static alignment demonstrates straightening of normal lordotic curvature. There is also slight grade 1 anterolisthesis of C4 on C5. Findings may be related to positioning and/or spasm , as well as underlying degenerative changes. There is no evidence of jumped facets. Vertebral body heights are maintained. There is no evidence of acute fracture. No bony fragments are seen within the spinal canal. There are multilevel degenerative changes consisting of intervertebral disc height loss with anterior and posterior disc osteophyte complex formations, as well as multilevel facet arthropathy. These changes appear greatest at the C5-C6 and C6- C7 levels. Pre-and paravertebral soft tissue structures are unremarkable. Note is made of calcified carotid atherosclerosis. Lung apices are not significantly included on this exam. IMPRESSION: 1. No acute intracranial abnormality. No CT evidence of mass, acute infarct or intracranial hemorrhage. 2. Chronic small vessel ischemic changes in the deep white matter. 3. No CT evidence of acute fracture or dislocation of the cervical spine. 4. Multilevel degenerative changes of the cervical spine greatest at the C5-C6 and C6-C7 levels. Dictated by: Dictated on workstation # [id number] Reviewed: Reviewed by Me (radiology report reviewed by me) Diagonstic Imaging: Xray Plain Films/CT/US/NM/MRI: pelvis Comments FINDINGS: A single AP view of the pelvis was performed. There is no radiographic evidence of acute fracture or dislocation. Pubic symphysis is within normal limits. SI joints are symmetric. Proximal femurs are intact, bilaterally. The femoro-acetabular joint spaces appear maintained on this single frontal view. Remainder of the bony pelvis is intact as well. No unexpected radiopaque foreign bodies are seen. Included small bowel loops are nondistended. Impression: 1. No radiographic evidence of acute fracture or dislocation of the bony pelvis. Dictated by: Dictated on workstation # [id number] Reviewed: Reviewed by Me (radiology report reviewed by me) Diagonstic Imaging: Xray Plain Films/CT/US/NM/MRI: other (sacrum/coccyx) Comments FINDINGS: 3 views of the sacrum and coccyx show no fractures, dislocations, or other acute bony abnormalities identified. Joint spaces are well maintained throughout. The soft tissues appear unremarkable. No radiopaque foreign bodies are identified. IMPRESSION: No acute fractures or dislocations of the sacrum or coccyx. If symptoms or clinical concern persists, noncontrast CT pelvis is encouraged. Dictated by: Dictated on workstation # [id number] Reviewed: Reviewed by Me (radiology report reviewed by me) Diagonstic Imaging: Xray Plain Films/CT/US/NM/MRI: hip Comments FINDINGS: 2 views of the right hip show no fractures, dislocations, or other acute bony abnormalities identified. Joint spaces are well maintained throughout. The soft tissues appear unremarkable. No radiopaque foreign bodies are identified. There is calcified arterial sclerosis. IMPRESSION: No acute fractures or dislocations of the right hip. Dictated by: Dictated on workstation # [id number] Reviewed: Reviewed by Me (radiology report reviewed by me) Departure Communication Progress Notes All laboratory and diagnostic findings discussed with the patient. Due to patient not taking her hydrocodone for the last 2 days, patient has been exhibiting signs of narcotic withdrawal. patient was given a dose of fentanyl in the ED with resolution of generalized weakness, jitteriness, shaking, and nausea. Patient also reports improvement in headache. Patient states she normally takes the hydrocodone scheduled and never misses doses up until the last 2 days. Patient to discuss with her PCP the possibility of tapering off of the narcotics due to improvement in pain with the Lyrica. Plan for discharge to home. All return precautions were discussed with the patient as described in the discharge instructions of this report. Patient voices understanding and agrees with the treatment plan. Impression Impression: Primary Impression: Minor head injury without loss of consciousness Qualified Codes: S09.90XA - Unspecified injury of head, initial encounter Additional Impressions: Contusion of right hip Qualified Codes: S70.01XA - Contusion of right hip, initial encounter Acute narcotic withdrawal Disposition: HOME, SELF-CARE Condition: Improved Departure-Patient Inst. Decision time for Depature: 23:18 Referrals: MERRICK SIEGEL DO (PCP/Family) Primary Care Physician Patient Instructions: Minor Head Injury (DC), Prescription Drug Withdrawal (DC) , Preventing Falls in the Older Adult Add. Discharge Instructions: All discharge instructions reviewed with patient and/or family. Voiced understanding. Take hydrocodone as prescribed by Dr. Siegel (avoid missing scheduled doses). Hold Lyrica until seen by Dr. Siegel. Follow-up with Dr. Siegel Wednesday or Wednesday for recheck, call first thing tomorrow morning for appointment time. Ice pack for 20 minute intervals as needed for pain, then heating pad or pack if needed. Return to the emergency department immediately for worsened pain, headache, dizziness, changes in vision, slurred speech, neck pain, back pain, numbness, weakness, chest pain, shortness of air, seizure, or any other concerns. CLEVE NAGY Feb 14, 2017 19:43
[2017-02-14 20:21] LABS: BASOPHILS # (AUTO) 0.1 10^3/uL (0.0-0.1); BASOPHILS % (AUTO) 1 % (0-10); EOSINOPHILS # (AUTO) 0.3 10^3/uL (0.0-0.3); EOSINOPHILS % (AUTO) 3 % (0-10); LYMPHOCYTES # (AUTO) 3.6 X 10^3 (1.0-4.0); LYMPHOCYTES % (AUTO) 36 % (12-44); MEAN CORPUSCULAR HEMOGLOBIN 31 PG (25-34); MEAN CORPUSCULAR HGB CONC 35 G/DL (32-36); MEAN CORPUSCULAR VOLUME 89 FL (80-99); MEAN PLATELET VOLUME 10.1 FL (7.4-10.4); MONOCYTES # (AUTO) 0.9 X 10^3 (0.0-1.0); MONOCYTES % (AUTO) 9 % (0-12); NEUTROPHILS # (AUTO) 5.2 X 10^3 (1.8-7.8); NEUTROPHILS % (AUTO) 52 % (42-75); PLATELET COUNT 269 10^3/uL (130-400); RED BLOOD COUNT 4.58 10^6/uL (4.35-5.85); RED CELL DISTRIBUTION WIDTH 12.3 % (10.0-14.5); WHITE BLOOD COUNT 10.1 10^3/uL (4.3-11.0)
--- NOTE | 2017-02-14 20:39 | Diagnostic Imaging Report ---
PROCEDURE: CT head and CT cervical spine without contrast. TECHNIQUE: Multiple contiguous axial images were obtained through the brain and cervical spine without the use of intravenous contrast. Sagittal and coronal reformations through the cervical spine were then performed. INDICATION: Fall. Trauma to the head. Headache. COMPARISON: 09/01/2016 FINDINGS: CT head: The ventricles and cortical sulci are diffusely prominent, compatible with age-related volume loss. There are confluent areas of abnormal, low attenuation in the periventricular white matter. This is consistent with chronic small vessel ischemic changes. There is no midline shift or mass-effect. No acute intra-axial hemorrhage is seen. There are no abnormal areas of increased or decreased density to suggest acute hemorrhage or edema. No extra-axial masses or collections are present. The bony calvarium is intact. The visualized paranasal sinuses are unremarkable. The mastoid air cells are clear. CT cervical spine: Evaluation of the static alignment demonstrates straightening of normal lordotic curvature. There is also slight grade 1 anterolisthesis of C4 on C5. Findings may be related to positioning and/or spasm, as well as underlying degenerative changes. There is no evidence of jumped facets. Vertebral body heights are maintained. There is no evidence of acute fracture. No bony fragments are seen within the spinal canal. There are multilevel degenerative changes consisting of intervertebral disc height loss with anterior and posterior disc osteophyte complex formations, as well as multilevel facet arthropathy. These changes appear greatest at the C5-C6 and C6-C7 levels. Pre-and paravertebral soft tissue structures are unremarkable. Note is made of calcified carotid atherosclerosis. Lung apices are not significantly included on this exam. IMPRESSION: 1. No acute intracranial abnormality. No CT evidence of mass, acute infarct or intracranial hemorrhage. 2. Chronic small vessel ischemic changes in the deep white matter. 3. No CT evidence of acute fracture or dislocation of the cervical spine. 4. Multilevel degenerative changes of the cervical spine greatest at the C5-C6 and C6-C7 levels. Dictated by: Dictated on workstation # [id number]
[2017-02-14 20:44] LABS: ALANINE AMINOTRANSFERASE 11 U/L (0-55); ALBUMIN 3.7 GM/DL (3.2-4.5); ANION GAP 9 MMOL/L (5-14); ASPARTATE AMINO TRANSFERASE 14 U/L (5-34); BILIRUBIN,TOTAL 0.2 MG/DL (0.1-1.0); BLOOD UREA NITROGEN 7 MG/DL (7-18); BUN/CREATININE RATIO 8; CALCIUM 9.1 MG/DL (8.5-10.1); CARBON DIOXIDE 24 MMOL/L (21-32); CHLORIDE 97 MMOL/L (98-107); CREATININE SERUM 0.85 MG/DL (0.60-1.30); GFR ESTIMATED > 60; GLUCOSE 100 MG/DL (70-105); SODIUM 130 MMOL/L (135-145); TOTAL PROTEIN 6.8 GM/DL (6.4-8.2)
[2017-02-14 20:59] LABS: BILIRUBIN,URINE NEGATIVE (NEGATIVE); KETONES,URINE NEGATIVE (NEGATIVE); LEUKOCYTE ESTERASE ,URINE NEGATIVE (NEGATIVE); NITRITE,URINE NEGATIVE (NEGATIVE); PH,URINE 6.5 (5-9); PROTEIN,URINE NEGATIVE (NEGATIVE); UROBILINOGEN,URINE NORMAL (NORMAL)
--- NOTE | 2017-02-14 21:01 | Diagnostic Imaging Report ---
INDICATION: Fall. Right hip pain. COMPARISON: None FINDINGS: A single AP view of the pelvis was performed. There is no radiographic evidence of acute fracture or dislocation. Pubic symphysis is within normal limits. SI joints are symmetric. Proximal femurs are intact, bilaterally. The femoro-acetabular joint spaces appear maintained on this single frontal view. Remainder of the bony pelvis is intact as well. No unexpected radiopaque foreign bodies are seen. Included small bowel loops are nondistended. Impression: 1. No radiographic evidence of acute fracture or dislocation of the bony pelvis. Dictated by: Dictated on workstation # [id number]
--- NOTE | 2017-02-14 21:02 | Diagnostic Imaging Report ---
INDICATION: Fall. Right hip pain. COMPARISON: None. FINDINGS: 2 views of the right hip show no fractures, dislocations, or other acute bony abnormalities identified. Joint spaces are well maintained throughout. The soft tissues appear unremarkable. No radiopaque foreign bodies are identified. There is calcified arterial sclerosis. IMPRESSION: No acute fractures or dislocations of the right hip. Dictated by: Dictated on workstation # [id number]
--- NOTE | 2017-02-14 21:05 | Diagnostic Imaging Report ---
INDICATION: Fall. Pain. COMPARISON: 09/01/2016 FINDINGS: 3 views of the sacrum and coccyx show no fractures, dislocations, or other acute bony abnormalities identified. Joint spaces are well maintained throughout. The soft tissues appear unremarkable. No radiopaque foreign bodies are identified. IMPRESSION: No acute fractures or dislocations of the sacrum or coccyx. If symptoms or clinical concern persists, noncontrast CT pelvis is encouraged. Dictated by: Dictated on workstation # [id number]
[2017-02-14 21:14] LABS: SQUAMOUS EPITHELIAL CELL,UR RARE /HPF
[2017-02-14 23:23] VITALS: BP 101/65
== END 2017-02-14 23:23 | disposition home or self-care (01) ==
LOC: EDUNIT# 18:26 → ER 18:28
DX: S09.90XA Unspecified injury of head, initial encounter (principal); S70.01XA Contusion of right hip, initial encounter; F19.239 Other psychoactive substance dependence with withdrawal, unspecified; J44.9 Chronic obstructive pulmonary disease, unspecified; I25.10 Atherosclerotic heart disease of native coronary artery without angina pectoris; I25.2 Old myocardial infarction; E78.00 Pure hypercholesterolemia, unspecified; K21.9 Gastro-esophageal reflux disease without esophagitis; G40.909 Epilepsy, unspecified, not intractable, without status epilepticus; M81.0 Age-related osteoporosis without current pathological fracture; M19.90 Unspecified osteoarthritis, unspecified site; E11.40 Type 2 diabetes mellitus with diabetic neuropathy, unspecified; F41.9 Anxiety disorder, unspecified; F32.9 Major depressive disorder, single episode, unspecified; F17.210 Nicotine dependence, cigarettes, uncomplicated; Z80.49 Family history of malignant neoplasm of other genital organs; Z86.73 Personal history of transient ischemic attack (TIA), and cerebral infarction without residual deficits; Z79.82 Long term (current) use of aspirin; Z90.49 Acquired absence of other specified parts of digestive tract; Z95.1 Presence of aortocoronary bypass graft; Z95.5 Presence of coronary angioplasty implant and graft; Z90.710 Acquired absence of both cervix and uterus; W01.10XA Fall on same level from slipping, tripping and stumbling with subsequent striking against unspecified object, initial encounter
CPT/HCPCS: 36415; 70450; 72125; 72170; 72220; 73502; 80053; 81000; 85025; 96361; 96374

== ENCOUNTER 2017-05-03 14:06 | Emergency (ER) | payer MEDICARE ==
[~2017-05-03] VITALS: Ht 167.6 cm; Wt 59.0 kg
[~2017-05-03 14:06] MED LIST changes: +METO-270 PO; -METO-387 PO
--- NOTE | 2017-05-03 15:13 | ED Lower Extremity ---
General Chief Complaint: Trauma-Non Activation Stated Complaint: LT LEG INJ/FALL Nursing Triage Note: Pt fell yesterday evening at 2300. Nursing Sepsis Screen: No Definite Risk Source: patient Exam Limitations: no limitations History of Present Illness Time seen by provider: 15:12 Initial Comments Patient fell last night at about 11 p.m. She complains of pain to the left foot and the left tibia/fibula. She denies any other injury. She is also like something for pain and is coincidentally out of her hydrocodone. Onset: yesterday Severity: moderate Pain/Injury Location: left leg, right foot Method of Injury: fell Modifying Factors: Worse With Movement Allergies and Home Medications Allergies Coded Allergies: NKANo Known Allergies (Verified Allergy, Unknown, 04/27/13) Home Medications Aspirin 81 Mg Tabec, 81 MG PO DAILY, (Reported) Atorvastatin Calcium 80 Mg Tablet, 80 MG PO HS, (Reported) Hydrocodone/Acetaminophen 1 Each Tablet, 1 TAB PO Q8H PRN for PAIN, (Reported) Oxycodone HCl/Acetaminophen 1 Each Tablet, 1 EACH PO Q4H PRN for PAIN, #14 Ref 0 Prescribed by: CLEVE NAGY on 07/29/16 1307 Pantoprazole Sodium 40 Mg Tablet.dr, 40 MG PO DAILY, (Reported) LAST FILLED 05/19/16 #30 Constitutional: see HPI EENTM: see HPI Respiratory: no symptoms reported Cardiovascular: no symptoms reported Genitourinary: no symptoms reported Musculoskeletal: see HPI Skin: no symptoms reported Psychiatric/Neurological: No Symptoms Reported Past Oujkahf-Yqskvt-Pjrbpi Hx Patient Social History Alcohol Use: Denies Use Recreational Drug Use: No Smoking Status: Current Everyday Smoker Type Used: Cigarettes Recent Foreign Travel: No Contact w/Someone Who Travel: No Recent Infectious Disease Expo: No Recent Hopitalizations: No Immunizations Up To Date Tetanus Booster (TDap): Unknown PED Vaccines UTD: No Date of Pneumonia Vaccine: Jun 02, 2011 Date of Influenza Vaccine: Apr 02, 2016 Seasonal Allergies Seasonal Allergies: No Surgeries History of Surgeries: Yes (CARPAL TUNNEL BILAT. KNEE SURGERY ) Surgeries: Appendectomy, Cardiac, CABG, Section, Coronary Stent, Hysterectomy, Oophorectomy, Orthopedic Respiratory History of Respiratory Disorde: Yes Respiratory Disorders: COPD Cardiovascular History of Cardiac Disorders: Yes (HEART CATH X2, UNKNOWN AMOUNT OF STENTS) Cardiac Disorders: Coronary Artery Disease, Heart Attack, High Cholesterol, Irregular Heartbeat Neurological History of Neurological Disord: Yes Neurological Disorders: Neuropathy, Seizure Disorder, TIA Reproductive System Hx Reproductive Disorders: No Sexually Transmitted Disease: No HIV/AIDS: No Female Reproductive Disorders: Denies [employer] W[employer]ER History: Hysterectomy Gastrointestinal History of Gastrointestinal Di: Yes Gastrointestinal Disorders: Gastroesophageal Reflux, Ulcer Musculoskeletal History of Musculoskeletal Dis: Yes Musculoskeletal Disorders: Osteoporosis, Arthritis, Chronic Back Pain Endocrine History of Endocrine Disorders: Yes (OWNS GLUCOMETER, BUT NEVER CHECKS BLOOD SUGAR AND DOES NOT FOLLOW DIET. ) Endocrine Disorders: Diabetes, Insulin dep HEENT HEENT Disorders: Cataract Loss of Vision: Denies Hearing Impairment: Denies Cancer History of Cancer: No Psychosocial History of Psychiatric Problem: Yes Behavioral Health Disorders: Anxiety, Depression Integumentary History of Skin or Integumenta: No Blood Transfusions History of Blood Disorders: No Adverse Reaction to a Blood Tr: No Family Medical History Significant Family History: No Pertinent Family Hx Family Medial History: FH: suicide FH: uterine cancer 19 MOTHER FHx: diabetes mellitus 19 MOTHER Physical Exam Vital Signs Vital Sign - Last 12Hours 05/03/17 14:58 Temp 97.5 Pulse 70 Resp 16 B/P (MAP) 87/53 Pulse Ox 98 Capillary Refill : Less Than 3 Seconds General Appearance: WD/WN, no apparent distress HEENT: PERRL/EOMI, normal ENT inspection Neck: non-tender, full range of motion Respiratory: no respiratory distress, no accessory muscle use Gastrointestinal: normal bowel sounds, non tender Hips: bilateral hip non-tender, bilateral hip normal inspection, bilateral hip normal range of motion Legs: left leg pain, left leg soft tissue tenderness, left leg other (no ecchymosis or erythema) Knees: bilateral knee non-tender, bilateral knee normal inspection, bilateral knee normal range of motion Ankles: bilateral ankle non-tender, bilateral ankle normal inspection, bilateral ankle normal range of motion Feet: left foot pain, left foot soft tissue tenderness, left foot other (no ecchymosis or erythema or swelling.) Neurologic/Psychiatric: alert, normal mood/affect, oriented x 3 Skin: normal color, warm/dry Progress/Results/Core Measures Results/Orders Lab Results Laboratory Tests Test 05/03/17 15:45 Range/Units White Blood Count 11.6 H 4.3-11.0 10^3/uL Red Blood Count 4.88 4.35-5.85 10^6/uL Hemoglobin 15.3 11.5-16.0 G/DL Hematocrit 44 35-52 % Mean Corpuscular Volume 90 80-99 FL Mean Corpuscular Hemoglobin 31 25-34 PG Mean Corpuscular Hemoglobin Concent 35 32-36 G/DL Red Cell Distribution Width 12.4 10.0-14.5 % Platelet Count 277 130-400 10^3/uL Mean Platelet Volume 10.1 7.4-10.4 FL Neutrophils (%) (Auto) 69 42-75 % Lymphocytes (%) (Auto) 21 12-44 % Monocytes (%) (Auto) 9 0-12 % Eosinophils (%) (Auto) 1 0-10 % Basophils (%) (Auto) 1 0-10 % Neutrophils # (Auto) 8.0 H 1.8-7.8 X 10^3 Lymphocytes # (Auto) 2.4 1.0-4.0 X 10^3 Monocytes # (Auto) 1.1 H 0.0-1.0 X 10^3 Eosinophils # (Auto) 0.1 0.0-0.3 10^3/uL Basophils # (Auto) 0.1 0.0-0.1 10^3/uL Sodium Level 136 135-145 MMOL/L Potassium Level 4.3 3.6-5.0 MMOL/L Chloride Level 101 98-107 MMOL/L Carbon Dioxide Level 21 21-32 MMOL/L Anion Gap 14 5-14 MMOL/L Blood Urea Nitrogen 7 7-18 MG/DL Creatinine 0.99 0.60-1.30 MG/DL Estimat Glomerular Filtration Rate 55 BUN/Creatinine Ratio 7 Glucose Level 216 H 70-105 MG/DL Calcium Level 9.6 8.5-10.1 MG/DL My Orders Orders - LASHAUN VELA APRN Foot, Left, 3 Views (05/03/17 15:04) Tibia/Fibula, Left, 2 Views (05/03/17 15:04) Cbc With Automated Diff (05/03/17 15:04) Basic Metabolic Panel (05/03/17 15:04) Saline Lock/Iv-Start (05/03/17 15:04) Hydrocodone/Apap 5/325 Tablet (Lortab 5 (05/03/17 15:15) Lactated Ringers (Lr 1000 Ml Iv Solution (05/03/17 15:15) Medications Given in ED Current Medications Medications Dose Ordered Sig/Roman Route Start Time Stop Time Status Last Admin Dose Admin Acetaminophen/ Hydrocodone Bitart 1 tab ONCE ONCE PO 05/03/17 15:15 05/03/17 15:16 DC 05/03/17 15:34 1 TAB Vital Signs/I&O Vital Sign - Last 12Hours 05/03/17 05/03/17 14:58 15:34 Temp 97.5 97.5 Pulse 70 Resp 16 B/P (MAP) 87/53 Pulse Ox 98 Blood Pressure Mean: 64 Departure Impression Impression: Primary Impression: Leg pain Disposition: HOME, SELF-CARE Condition: Improved Departure-Patient Inst. Decision time for Depature: 16:35 Referrals: MERRICK SIEGEL DO (PCP/Family) Primary Care Physician Patient Instructions: NO INSTRUCTIONS GIVEN Add. Discharge Instructions: 1. Tylenol as needed for pain 2. Follow-up with your doctor next week All discharge instructions reviewed with patient and/or family. Voiced understanding. LASHAUN VELA SENIOR CYTOGENETIC TECHNOLOGIST May 03, 2017 15:13
[2017-05-03] MEDS ORDERED: HYDROcodone/APAP 5 MG/325 MG (LORTAB) TAB PO ONE (15:15)
[2017-05-03] MEDS ORDERED: LACTATED RINGERS 1,000 ML IV SCH (15:15)
[2017-05-03 15:55] LABS: BASOPHILS # (AUTO) 0.1 10^3/uL (0.0-0.1); BASOPHILS % (AUTO) 1 % (0-10); EOSINOPHILS # (AUTO) 0.1 10^3/uL (0.0-0.3); EOSINOPHILS % (AUTO) 1 % (0-10); LYMPHOCYTES # (AUTO) 2.4 X 10^3 (1.0-4.0); LYMPHOCYTES % (AUTO) 21 % (12-44); MEAN CORPUSCULAR HEMOGLOBIN 31 PG (25-34); MEAN CORPUSCULAR HGB CONC 35 G/DL (32-36); MEAN CORPUSCULAR VOLUME 90 FL (80-99); MEAN PLATELET VOLUME 10.1 FL (7.4-10.4); MONOCYTES # (AUTO) 1.1 X 10^3 (0.0-1.0); MONOCYTES % (AUTO) 9 % (0-12); NEUTROPHILS % (AUTO) 69 % (42-75); PLATELET COUNT 277 10^3/uL (130-400); RED BLOOD COUNT 4.88 10^6/uL (4.35-5.85); RED CELL DISTRIBUTION WIDTH 12.4 % (10.0-14.5); WHITE BLOOD COUNT 11.6 10^3/uL (4.3-11.0)
[2017-05-03 16:12] LABS: CALCIUM 9.6 MG/DL (8.5-10.1); CREATININE SERUM 0.99 MG/DL (0.60-1.30); POTASSIUM 4.3 MMOL/L (3.6-5.0)
--- NOTE | 2017-05-03 16:12 | Diagnostic Imaging Report ---
INDICATION: Injury. Pain. COMPARISON: None. FINDINGS: Three views of the left foot are obtained. There is generalized osteopenia. No acute fracture, malalignment, or osseous destructive process is seen. There is some spurring of the os calcis. IMPRESSION: Generalized osteopenia. No acute fracture is seen. Dictated by: Dictated on workstation # [id number]
--- NOTE | 2017-05-03 16:16 | Diagnostic Imaging Report ---
Two views of the left tibia and fibula. INDICATION: Fall. FINDINGS: No fracture, dislocation, or radiopaque foreign body. The proximal and distal joints appear grossly unremarkable. Surgical clips along the medial aspect of the knee seen. IMPRESSION: No acute process. Dictated by: Dictated on workstation # [id number]
[2017-05-03 17:14] VITALS: BP 108/70
== END 2017-05-03 17:14 | disposition home or self-care (01) ==
LOC: EDUNIT# 14:06 → ER 14:08
DX: M79.672 Pain in left foot (principal); I25.10 Atherosclerotic heart disease of native coronary artery without angina pectoris; I25.2 Old myocardial infarction; E78.00 Pure hypercholesterolemia, unspecified; J44.9 Chronic obstructive pulmonary disease, unspecified; K21.9 Gastro-esophageal reflux disease without esophagitis; M81.0 Age-related osteoporosis without current pathological fracture; M19.90 Unspecified osteoarthritis, unspecified site; E11.40 Type 2 diabetes mellitus with diabetic neuropathy, unspecified; F32.9 Major depressive disorder, single episode, unspecified; F41.9 Anxiety disorder, unspecified; G40.909 Epilepsy, unspecified, not intractable, without status epilepticus; F17.210 Nicotine dependence, cigarettes, uncomplicated; Z87.19 Personal history of other diseases of the digestive system; Z90.49 Acquired absence of other specified parts of digestive tract; Z85.42 Personal history of malignant neoplasm of other parts of uterus; Z86.73 Personal history of transient ischemic attack (TIA), and cerebral infarction without residual deficits; Z95.5 Presence of coronary angioplasty implant and graft; Z90.710 Acquired absence of both cervix and uterus; Z87.59 Personal history of other complications of pregnancy, childbirth and the puerperium; Z95.1 Presence of aortocoronary bypass graft; Z79.82 Long term (current) use of aspirin
CPT/HCPCS: 36415; 73590; 73630; 80048; 85025

== ENCOUNTER 2017-09-30 11:58 | Inpatient (IN) | payer MEDICARE ==
[2017-09-30] VITALS (10 sets, daily range): BP systolic 93–136; BP diastolic 57–82
[~2017-09-30] VITALS: Ht 170.2 cm; Wt 61.4 kg
[~2017-09-30 11:58] MED LIST changes: -METO-270 PO; +METO-387 PO
[2017-09-30 12:15] LABS: BASOPHILS # (AUTO) 0.1 10^3/uL (0.0-0.1); BASOPHILS % (AUTO) 1 % (0-10); EOSINOPHILS # (AUTO) 0.2 10^3/uL (0.0-0.3); EOSINOPHILS % (AUTO) 2 % (0-10); HEMATOCRIT 44 % (35-52); HEMOGLOBIN 15.4 G/DL (11.5-16.0); LYMPHOCYTES # (AUTO) 2.7 X 10^3 (1.0-4.0); LYMPHOCYTES % (AUTO) 36 % (12-44); MEAN CORPUSCULAR HEMOGLOBIN 32 PG (25-34); MEAN CORPUSCULAR HGB CONC 35 G/DL (32-36); MEAN CORPUSCULAR VOLUME 91 FL (80-99); MEAN PLATELET VOLUME 9.5 FL (7.4-10.4); MONOCYTES # (AUTO) 0.7 X 10^3 (0.0-1.0); MONOCYTES % (AUTO) 9 % (0-12); NEUTROPHILS # (AUTO) 3.9 X 10^3 (1.8-7.8); NEUTROPHILS % (AUTO) 52 % (42-75); PLATELET COUNT 299 10^3/uL (130-400); RED BLOOD COUNT 4.81 10^6/uL (4.35-5.85); RED CELL DISTRIBUTION WIDTH 13.5 % (10.0-14.5); WHITE BLOOD COUNT 7.5 10^3/uL (4.3-11.0)
[2017-09-30] MEDS ORDERED: LIDOCAINE 2% VISCOUS 15 ML UDC PO ONE (12:15)
[2017-09-30] MEDS ORDERED: ANTACID SUSP 30 ML UDC (MYLANTA) PO ONE (12:15)
[2017-09-30] MEDS ORDERED: NITROGLYCERIN 0.4 MG SL TABS BTL 25'S SL PRN (12:15)
[2017-09-30] MEDS ORDERED: ONDANSETRON 4 MG/2 ML (SDV) Z0FRAN IVP ONE (12:15)
[2017-09-30] MEDS ORDERED: ASPIRIN 81 MG CHEW (CHILDREN'S ASA) PO ONE (12:15)
[2017-09-30] MEDS ORDERED: FAMOTIDINE 20MG/2ML IV (PEPCID) IVP ONE (12:15)
--- NOTE | 2017-09-30 12:22 | ED Chest Pain ---
General Chief Complaint: Chest Pain Stated Complaint: CP Nursing Triage Note: ASSISTED PT FROM [facility]. 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 Nursing Sepsis Screen: No Definite Risk Source: patient Exam Limitations: no limitations History of Present Illness Date Seen by Provider: Sep 30, 2017 Time Seen by Provider: 12:05 Initial Comments This 76-year-old woman presents to the emergency room with 45 minutes of pain in the lower central chest radiating up toward the neck. She has a known history of coronary artery disease and had CABG performed in July 2016. Cardiac catheterization prior to that CABG noted progressive aggressive coronary artery disease. Patient continues to smoke. She denies any alcohol consumption. She states associated symptoms include nausea, sweats, and lightheadedness. She denies shortness of breath. She took tramadol at home which was not helpful. Nitroglycerin en route did not relieve her pain. She is presently on cephalexin but is uncertain of what the cephalexin is supposed to treat. She states lab work was done and Dr. Siegel prescribed the cephalexin after reviewing labs. Allergies and Home Medications Allergies Coded Allergies: NORAHANo Known Allergies (Verified Allergy, Unknown, 04/27/13) Home Medications Aspirin 81 Mg Tablet.dr, 81 MG PO HS, (Reported) Atorvastatin Calcium 80 Mg Tablet, 80 MG PO HS, (Reported) Bismuth Subsalicylate 262 Mg/15 Ml Oral.susp, PO UD PRN for STOMACH UPSET, ( Reported) Carvedilol 3.125 Mg Tablet, 3.125 MG PO BID, (Reported) Cephalexin 500 Mg Capsule, 500 MG PO TID, (Reported) 7 DAY THERAPY FILLED 09-22-17 (PATIENT THINKS SHE HAS 4 CAPSULES LEFT) Citalopram Hydrobromide 10 Mg Tablet, 10 MG PO DAILY, (Reported) Clopidogrel Bisulfate 75 Mg Tablet, 75 MG PO 1200, (Reported) Gabapentin 300 Mg Capsule, 300 MG PO HS, (Reported) Guaifenesin/Dextromethorphan 5 Ml Syrup, 10 ML PO Q4H PRN for COUGH, (Reported) Insulin Glargine,Hum.rec.anlog 100 Unit/1 Ml Vial, 21 UNIT SQ 1800, (Reported) Tramadol HCl 50 Mg Tablet, 50 MG PO TID PRN for PAIN-MODERATE, (Reported) Patient Home Medication List Home Medication List Reviewed: Yes Review of Systems Constitutional: see HPI EENTM: No Symptoms Reported Respiratory: No Symptoms Reported Cardiovascular: See HPI Gastrointestinal: See HPI Genitourinary: No Symptoms Reported Musculoskeletal: no symptoms reported Skin: see HPI Psychiatric/Neurological: No Symptoms Reported Endocrine: No Symptoms Reported Past Ubeexfz-Hqutxb-Dtayou Hx Patient Social History Alcohol Use: Denies Use Recreational Drug Use: No Smoking Status: Current Everyday Smoker Type Used: Cigarettes Recent Foreign Travel: No Contact w/Someone Who Travel: No Recent Infectious Disease Expo: No Recent Hopitalizations: No Immunizations Up To Date Tetanus Booster (TDap): Unknown PED Vaccines UTD: No Date of Pneumonia Vaccine: Jun 02, 2011 Date of Influenza Vaccine: Apr 02, 2016 Seasonal Allergies Seasonal Allergies: No Surgeries History of Surgeries: Yes (CARPAL TUNNEL BILAT. KNEE SURGERY ) Surgeries: Appendectomy, Cardiac, CABG, Section, Coronary Stent, Hysterectomy, Oophorectomy, Orthopedic Respiratory History of Respiratory Disorde: Yes Respiratory Disorders: COPD Cardiovascular History of Cardiac Disorders: Yes (HEART CATH X2, UNKNOWN AMOUNT OF STENTS) Cardiac Disorders: Coronary Artery Disease, Heart Attack, High Cholesterol, Irregular Heartbeat Neurological History of Neurological Disord: Yes Neurological Disorders: Neuropathy, Seizure Disorder, TIA Reproductive System Hx Reproductive Disorders: No Sexually Transmitted Disease: No HIV/AIDS: No Female Reproductive Disorders: Denies 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 ) Endocrine Disorders: Diabetes, Insulin dep HEENT History of HEENT Disorders: Yes HEENT Disorders: Cataract Loss of Vision: Denies Hearing Impairment: Denies Cancer History of Cancer: No Psychosocial History of Psychiatric Problem: Yes Behavioral Health Disorders: Anxiety, Depression Integumentary History of Skin or Integumenta: No Blood Transfusions History of Blood Disorders: No Adverse Reaction to a Blood Tr: No Family Medical History Significant Family History: No Pertinent Family Hx Family Medial History: FH: suicide FH: uterine cancer 19 MOTHER FHx: diabetes mellitus 19 MOTHER Physical Exam Vital Signs Vital Signs - First Documented 09/30/17 11:58 Temp 98.0 Pulse 76 Resp 18 B/P (MAP) 158/90 (112) Pulse Ox 97 O2 Delivery Room Air Capillary Refill : Less Than 3 Seconds General Appearance: WD/WN, Mild Distress, Thin HEENT: PERRL/EOMI, Normal ENT Inspection Neck: Normal Inspection Respiratory: Lungs Clear, Normal Breath Sounds, No Accessory Muscle Use, No Respiratory Distress, Other (anterior lower chest tender to palpation) Cardiovascular: Regular Rate, Rhythm, No Edema, No Murmur, Normal Peripheral Pulses Gastrointestinal: Normal Bowel Sounds, Soft, Guarding (epigastrium), Tenderness (epigastrium) Extremity: Normal Inspection, No Pedal Edema Neurologic/Psychiatric: Alert, Oriented x3, No Motor/Sensory Deficits, Normal Mood/Affect, bodywork therapist II-XII Norm as Tested Skin: Normal Color, Warm/Dry Progress/Results/Core Measures Results/Orders Lab Results Laboratory Tests Test 09/30/17 12:05 09/30/17 14:50 09/30/17 16:19 Range/Units White Blood Count 7.5 4.3-11.0 10^3/uL Red Blood Count 4.81 4.35-5.85 10^6/uL Hemoglobin 15.4 11.5-16.0 G/DL Hematocrit 44 35-52 % Mean Corpuscular Volume 91 80-99 FL Mean Corpuscular Hemoglobin 32 25-34 PG Mean Corpuscular Hemoglobin Concent 35 32-36 G/DL Red Cell Distribution Width 13.5 10.0-14.5 % Platelet Count 299 130-400 10^3/uL Mean Platelet Volume 9.5 7.4-10.4 FL Neutrophils (%) (Auto) 52 42-75 % Lymphocytes (%) (Auto) 36 12-44 % Monocytes (%) (Auto) 9 0-12 % Eosinophils (%) (Auto) 2 0-10 % Basophils (%) (Auto) 1 0-10 % Neutrophils # (Auto) 3.9 1.8-7.8 X 10^3 Lymphocytes # (Auto) 2.7 1.0-4.0 X 10^3 Monocytes # (Auto) 0.7 0.0-1.0 X 10^3 Eosinophils # (Auto) 0.2 0.0-0.3 10^3/uL Basophils # (Auto) 0.1 0.0-0.1 10^3/uL Prothrombin Time 12.8 12.2-14.7 SEC INR Comment 1.0 0.8-1.4 Activated Partial Thromboplast Time 20 L 24-35 SEC Sodium Level 132 L 135-145 MMOL/L Potassium Level 3.9 3.6-5.0 MMOL/L Chloride Level 96 L 98-107 MMOL/L Carbon Dioxide Level 30 21-32 MMOL/L Anion Gap 6 5-14 MMOL/L Blood Urea Nitrogen 6 L 7-18 MG/DL Creatinine 1.02 0.60-1.30 MG/DL Estimat Glomerular Filtration Rate 53 BUN/Creatinine Ratio 6 Glucose Level 232 H 70-105 MG/DL Calcium Level 9.2 8.5-10.1 MG/DL Magnesium Level 2.0 1.8-2.4 MG/DL Total Bilirubin 0.5 0.1-1.0 MG/DL Aspartate Amino Transf (AST/SGOT) 12 5-34 U/L Alanine Aminotransferase (ALT/SGPT) 6 0-55 U/L Alkaline Phosphatase 84 40-136 U/L Myoglobin 61.0 10.0-92.0 NG/ML Troponin I < 0.30 1.78 *H <0.30 NG/ML Total Protein 7.5 6.4-8.2 GM/DL Albumin 4.1 3.2-4.5 GM/DL Lipase 35 8-78 U/L Urine Color YELLOW Urine Clarity CLEAR Urine pH 7 5-9 Urine Specific [place] 1.005 L 1.016-1.022 Urine Protein NEGATIVE NEGATIVE Urine Glucose (UA) 3+ H NEGATIVE Urine Ketones NEGATIVE NEGATIVE Urine Nitrite NEGATIVE NEGATIVE Urine Bilirubin NEGATIVE NEGATIVE Urine Urobilinogen NORMAL NORMAL MG/DL Urine Leukocyte Esterase NEGATIVE NEGATIVE Urine RBC (Auto) NEGATIVE NEGATIVE Urine RBC RARE /HPF Urine WBC NONE /HPF Urine Squamous Epithelial Cells NONE /HPF Urine Crystals NONE /LPF Urine Bacteria NEGATIVE /HPF Urine Casts NONE /LPF Urine Mucus NEGATIVE /LPF Urine Culture Indicated NO My Orders Orders - EMILIE BENSON MD Ondansetron Injection (Zofran Injectio (09/30/17 12:15) Famotidine Injection (Pepcid Injection) (09/30/17 12:15) Lidocaine 2% Viscous 15 Ml (Xylocaine Vi (09/30/17 12:15) Antacid Suspension (Mylanta Suspension (09/30/17 12:15) Nitroglycerin 0.4 Mg Btl 25's (Nitrostat (09/30/17 12:15) Lipase (09/30/17 12:15) Morphine Injection (Morphine Injection (09/30/17 13:00) Ct Alison Chest/Noang Abd-Pelv W (09/30/17 12:49) Ns Iv 1000 Ml (Sodium Chloride 0.9%) (09/30/17 12:55) Iohexol Injection (Omnipaque 350 Mg/Ml 1 (09/30/17 13:15) Sodium Chloride Flush (Catheter Flush Sy (09/30/17 13:15) Ns (Ivpb) (Sodium Chloride 0.9%) (09/30/17 13:15) Morphine Injection (Morphine Injection (09/30/17 14:00) Hydromorphone Injection (Dilaudid Inject (09/30/17 14:15) Us Gallbladder 80634 (09/30/17 14:33) Ua Culture If Indicated (09/30/17 14:50) Troponin I (09/30/17 16:00) Ekg Tracing (09/30/17 16:00) Pantoprazole Tablet (Protonix Tablet) (09/30/17 17:00) Metoprolol Succinate (Xl) Tab (Toprol Xl (09/30/17 17:30) Clopidogrel Tablet (Plavix Tablet) (09/30/17 17:30) Midazolam Injection (Versed Injection) (09/30/17 17:38) Fentanyl Injection (Sublimaze Injection (09/30/17 17:39) Heparin (Bolus Per Protocol) (Heparin (B (09/30/17 17:39) Ns Iv 1000 Ml (Sodium Chloride 0.9%) (09/30/17 17:39) Nitro Drip 95732 Mcg/D5w (Nitroglycerin (09/30/17 17:39) Heparin (Section Leader And Machine Setter) (Heparin (Section Leader And Machine Setter)) (09/30/17 17:39) Lidocaine 1% (Xylocaine 1%) (09/30/17 17:40) Medications Given in ED Current Medications Medications Dose Ordered Sig/Roman Route Start Time Stop Time Status Last Admin Dose Admin Al Hydrox/Mg Hydrox/Simethicone 30 ml ONCE ONCE PO 09/30/17 12:15 09/30/17 12:16 DC 09/30/17 12:38 30 ML Aspirin 324 mg ONCE ONCE PO 09/30/17 12:15 09/30/17 12:16 DC 09/30/17 12:37 324 MG Clopidogrel Bisulfate 75 mg ONCE ONCE PO 09/30/17 17:30 09/30/17 17:31 DC 09/30/17 17:40 75 MG Famotidine 20 mg ONCE ONCE IVP 09/30/17 12:15 09/30/17 12:16 DC 09/30/17 12:30 20 MG Iohexol 125 ml ONCE ONCE IV 09/30/17 13:15 09/30/17 13:16 DC 09/30/17 13:34 125 ML Lidocaine HCl 15 ml ONCE ONCE PO 09/30/17 12:15 09/30/17 12:16 DC 09/30/17 12:38 15 ML Morphine Sulfate 5 mg ONCE ONCE IVP 09/30/17 13:00 09/30/17 13:01 DC 09/30/17 12:57 5 MG Morphine Sulfate 5 mg ONCE ONCE IVP 09/30/17 14:00 09/30/17 14:01 DC 09/30/17 14:01 5 MG Ondansetron HCl 8 mg ONCE ONCE IVP 09/30/17 12:15 09/30/17 12:16 DC 09/30/17 12:33 8 MG Pantoprazole Sodium 40 mg ONCE ONCE PO 09/30/17 17:00 09/30/17 17:01 DC 09/30/17 17:40 40 MG Sodium Chloride 10 ml NEEDED PRN IV 09/30/17 13:15 09/30/17 13:34 10 ML Sodium Chloride 250 ml ONCE ONCE IV 09/30/17 13:15 09/30/17 13:16 DC 09/30/17 13:34 80 ML Vital Signs/I&O Vital Sign - Last 12Hours 09/30/17 11:58 Temp 98.0 Pulse 76 Resp 18 B/P (MAP) 158/90 (112) Pulse Ox 97 O2 Delivery Room Air Blood Pressure Mean: 112 Progress Note #1: Time: 12:22 Progress Note Patient seen and examined. Aspirin given. Patient stated nitroglycerin in route did not help her. On exam patient has significant epigastric tenderness and guarding which would suggest etiology is GI in nature. A GI cocktail, Pepcid, and Zofran will be given. Lipase was added to the lab orders. EKG showed no ST elevation.. Progress Note #2: Time: 13:00 Progress Note Pepcid, GI cocktail, and Zofran did not improve her pain at all. She is belt tender in epigastrium on reexamination. CT angiogram of the chest with CT of the abdomen and pelvis was ordered for further evaluation. Morphine was ordered for further pain management. Progress Note #3: Time: 14:[address] of the chest, abdomen and pelvis was viewed by me and report reviewed. No abnormalities to account for patient's pain were identified. Ultrasound of the gallbladder has been ordered for further assessment. 2 doses of morphine 5 mg were given but were insufficient for pain management. Dilaudid was ordered for further pain control. Gallbladder ultrasound is pending. Progress Note #4: Time: 16:24 Progress Note Ultrasound was negative. Patient's pain is nearly resolved. Patient would like to be dismissed home and follow-up with Dr. Siegel in the outpatient setting. Dr. Siegel is agreeable to this with follow-up in the clinic tomorrow at 10:00. Since patient was most concerned about her heart, I suggested repeating an EKG and troponin which patient was agreeable to. Repeat EKG is unremarkable and repeat troponin is pending. Progress Note #5: Time: 17:25 Progress Note Patient is being prepared for discharge but her repeat troponin returned positive. Dr. Zavala was contacted by phone. He would like to see her in the ER. He recommended giving her Plavix as she has not yet had her dose today. Aspirin was already given. Patient appears much more comfortable but rates her pain as 6/10. Dr. Zavala will see her in the emergency room to determine disposition. Have concerned patient may have dual disease. She obviously has elevated troponin likely from an STEMI. However, due to the intensity of her epigastric pain and use of aspirin, Plavix, and tobacco products, I'm concerned she may also have a GI pathology such as gastritis or peptic ulcer disease. Protonix is being given along with Toprol-XL and Plavix that were recommended by Dr. Zavala. Progress Note #6: Time: 18:[address] Zavala is present in the ER to assess patient. Patient being prepared for laboratory coordinator. ECG Initial ECG Impression Date: Sep 30, 2017 Initial ECG Impression Time: 12:01 Initial ECG Rate: 78 Initial ECG Rhythm: Normal Sinus Comment Sinus rhythm with first-degree AV block. No ST elevation or depression. No overt axis deviation. EKG : EKG Time: 16:01 Rate: 78 Rhythm: Normal Sinus Comment Sinus rhythm with first-degree AV block with no ST elevation or depression. No abnormal intervals. Low voltage with borderline right axis deviation. Unchanged from prior. Diagnostic Imaging Diagonstic Imaging: Xray Plain Films/CT/US/NM/MRI: chest Comments Chest x-ray viewed by me and report reviewed. See report below: NAME: DEBORA GARCIA [facility] REC#: [id number] PT STATUS: REG ER : 1940 PHYSICIAN: LASHAUN VELA APRN ADMIT DATE: 09/30/17/ER Draft Date of Exam:09/30/17 CHEST 1 VIEW, AP/PA ONLY INDICATION: Right-sided chest pain. TIME OF EXAM: 12:30 PM COMPARISON is made to a prior study from 09/01/2016. FINDINGS: Changes of median sternotomy are noted. The lungs appear to be hyperinflated consistent with COPD. No infiltrates are detected. No effusion or pneumothorax is seen. IMPRESSION: Stable chest. No acute feature is detected. Dictated on workstation # [id number] Dict: 09/30/17 1244 Trans: 09/30/17 1247 [facility] [id number] Interpreted by: DAVID MACK MD Diagonstic Imaging: CT Plain Films/CT/US/NM/MRI: chest, abdomen, pelvis Comments CT scans viewed by me and report reviewed. See report below: NAME: DEBORA GARCIA [facility] REC#: [id number] PT STATUS: REG ER : 1940 PHYSICIAN: EMILIE BENSON MD ADMIT DATE: 09/30/17/ER Signed Date of Exam: 09/30/17 CT ALISON CHEST/NOANG ABD-PELV W INDICATION: Chest pain. TECHNIQUE: Axial imaging through the chest, abdomen, and pelvis was performed after the administration of intravenous contrast. CT angiography protocol was utilized for the chest. Multiplanar, 3-D, and MIP reformations were performed. CTA CHEST: The thoracic aorta is normal in caliber. No dissection is seen. No aneurysm is identified. There are atherosclerotic changes present. The pulmonary arterial system is without evidence of thromboembolism. No filling defects are identified within the central, lobar, or segmental branches. No pericardial or pleural fluid is identified. No definite axillary, hilar, or mediastinal lymphadenopathy is detected. Parenchymal evaluation does demonstrate centrilobular emphysematous changes in both lungs. There is an area of slightly irregular density in the lingula, likely minimal infiltrate or atelectasis. Otherwise, the lungs appear to be fairly clear. IMPRESSION: No evidence of thoracic aortic dissection or pulmonary embolism. CT ABDOMEN AND PELVIS: The liver demonstrates generalized low density suggestive of hepatic steatosis. No discrete liver mass is identified. The gallbladder is unremarkable. The pancreas and spleen are unremarkable. No adrenal mass is detected. The kidneys are unremarkable. The aorta and iliac vessels are heavily calcified. The visualized small and large bowel loops are normal in caliber. There is no ascites. The bladder is unremarkable. No lymphadenopathy in the abdomen or pelvis is seen. IMPRESSION: Hepatic steatosis. No acute abnormality in the abdomen or pelvis is identified. Dictated by: Dictated on workstation # [id number] Dict: 09/30/17 1409 Trans: 09/30/17 1420 Interpreted by: DAVID MACK MD Electronically signed by: DAVID MACK MD 09/30/17 1420 Diagonstic Imaging: Ultrasound Plain Films/CT/US/NM/MRI: abdomen Comments NAME: DEBORA GARCIA [facility] REC#: [id number] PT STATUS: REG ER : 1940 PHYSICIAN: EMILIE BENSON MD ADMIT DATE: 09/30/17/ER Signed Date of Exam: 09/30/17 US GALLBLADDER [id number] PROCEDURE: US Gallbladder. TECHNIQUE: Multiple real-time grayscale images were obtained over the right upper quadrant in various projections. INDICATION: Pain. COMPARISON: None. FINDINGS: Pancreas is unremarkable as visualized but incompletely seen. The liver appears unremarkable. There is no biliary dilatation. The common bile duct measures about 5 mm. Doppler imaging demonstrates normal hepatopetal flow in the main portal vein. The gallbladder appears unremarkable. Right kidney measures 11 cm in length and appears normal. There is no ascites or sonographic Cote's sign. IMPRESSION: No acute abnormality is seen. Incomplete visualization of the pancreas. Dictated by: Dictated on workstation # [id number] Dict: 09/30/17 1528 Trans: 09/30/17 1540 Interpreted by: SOPHY URIOSTEGUI DO Electronically signed by: SOPHY URIOSTEGUI DO 09/30/17 1540 Departure Impression Impression: Primary Impression: Elevated troponin Additional Impressions: Epigastric pain Chest pain Qualified Codes: R07.9 - Chest pain, unspecified Disposition: ADMITTED INPATIENT Condition: Stable Admissions Decision to Admit Reason: Admit from ER (General) Decision to Admit/Date: Sep 30, 2017 Time/Decision to Admit Time: 17:15 Departure-Patient Inst. Referrals: MERRICK SIEGEL DO (PCP/Family) Primary Care Physician DORA ZAVALA MD FACP FACC CCDS Patient Instructions: Acute Abdomen (Belly Pain), Adult (DC) Add. Discharge Instructions: All discharge instructions reviewed with patient and/or family. Voiced understanding. EMILIE BENSON MD Sep 30, 2017 12:22
[2017-09-30 12:28] LABS: PROTHROMBIN TIME PATIENT 12.8 SEC (12.2-14.7)
[2017-09-30 12:36] LABS: ALANINE AMINOTRANSFERASE 6 U/L (0-55); ALBUMIN 4.1 GM/DL (3.2-4.5); ALKALINE PHOSPHATASE 84 U/L (40-136); BILIRUBIN,TOTAL 0.5 MG/DL (0.1-1.0); BUN/CREATININE RATIO 6; CALCIUM 9.2 MG/DL (8.5-10.1); CARBON DIOXIDE 30 MMOL/L (21-32); CHLORIDE 96 MMOL/L (98-107); CREATININE SERUM 1.02 MG/DL (0.60-1.30); GFR ESTIMATED 53; GLUCOSE 232 MG/DL (70-105); POTASSIUM 3.9 MMOL/L (3.6-5.0); SODIUM 132 MMOL/L (135-145); TOTAL PROTEIN 7.5 GM/DL (6.4-8.2)
--- NOTE | 2017-09-30 12:47 | Diagnostic Imaging Report ---
INDICATION: Right-sided chest pain. TIME OF EXAM: 12:30 PM COMPARISON is made to a prior study from 09/01/2016. FINDINGS: Changes of median sternotomy are noted. The lungs appear to be hyperinflated consistent with COPD. No infiltrates are detected. No effusion or pneumothorax is seen. IMPRESSION: Stable chest. No acute feature is detected. Dictated by: Dictated on workstation # [id number]
[2017-09-30] MEDS ORDERED: NS IV 1000 ML 1,000 ML IV SCH ×2 (12:55→20:03)
[2017-09-30] MEDS ORDERED: morphine INJ 10 MG/ML 1ML (SYR OR VIAL) IVP ONE ×2 (13:00→14:00)
[2017-09-30] MEDS ORDERED: IOHEXOL 350 MG/ML 150 ML (OMNIPAQUE 350) VIAL IV ONE (13:15)
[2017-09-30] MEDS ORDERED: CATHETER FLUSH 10 ML SYR IV PRN (13:15)
[2017-09-30] MEDS ORDERED: NS 250 ML (IVPB) BAG IV ONE (13:15)
[2017-09-30] MEDS ORDERED: HYDROmorphone (DILAUDID) 2 MG/ML VIAL IVP STA (14:15)
--- NOTE | 2017-09-30 14:18 | Diagnostic Imaging Report ---
INDICATION: Chest pain. TECHNIQUE: Axial imaging through the chest, abdomen, and pelvis was performed after the administration of intravenous contrast. CT angiography protocol was utilized for the chest. Multiplanar, 3-D, and MIP reformations were performed. CTA CHEST: The thoracic aorta is normal in caliber. No dissection is seen. No aneurysm is identified. There are atherosclerotic changes present. The pulmonary arterial system is without evidence of thromboembolism. No filling defects are identified within the central, lobar, or segmental branches. No pericardial or pleural fluid is identified. No definite axillary, hilar, or mediastinal lymphadenopathy is detected. Parenchymal evaluation does demonstrate centrilobular emphysematous changes in both lungs. There is an area of slightly irregular density in the lingula, likely minimal infiltrate or atelectasis. Otherwise, the lungs appear to be fairly clear. IMPRESSION: No evidence of thoracic aortic dissection or pulmonary embolism. CT ABDOMEN AND PELVIS: The liver demonstrates generalized low density suggestive of hepatic steatosis. No discrete liver mass is identified. The gallbladder is unremarkable. The pancreas and spleen are unremarkable. No adrenal mass is detected. The kidneys are unremarkable. The aorta and iliac vessels are heavily calcified. The visualized small and large bowel loops are normal in caliber. There is no ascites. The bladder is unremarkable. No lymphadenopathy in the abdomen or pelvis is seen. IMPRESSION: Hepatic steatosis. No acute abnormality in the abdomen or pelvis is identified. Dictated by: Dictated on workstation # [id number]
[2017-09-30 15:00] LABS: BILIRUBIN,URINE NEGATIVE (NEGATIVE); CLARITY,URINE CLEAR; COLOR,URINE YELLOW; GLUCOSE, URINE (UA) 3+ (NEGATIVE); KETONES,URINE NEGATIVE (NEGATIVE); LEUKOCYTE ESTERASE ,URINE NEGATIVE (NEGATIVE); NITRITE,URINE NEGATIVE (NEGATIVE); PH,URINE 7 (5-9); PROTEIN,URINE NEGATIVE (NEGATIVE); UROBILINOGEN,URINE NORMAL (NORMAL)
[2017-09-30 15:08] LABS: BACTERIA,URINE NEGATIVE /HPF; RBC,URINE RARE /HPF
[2017-09-30] MEDS ORDERED: GABA-488 PO (15:36)
[2017-09-30] MEDS ORDERED: CARV3.122 PO (15:36)
[2017-09-30] MEDS ORDERED: CITA10TA7 PO (15:36)
[2017-09-30] MEDS ORDERED: BISM262O27 PO (15:36)
[2017-09-30] MEDS ORDERED: TRAM50TA2 PO (15:36)
[2017-09-30] MEDS ORDERED: GUAI5SYR PO (15:36)
[2017-09-30] MEDS ORDERED: ASPI-983 PO (15:36)
[2017-09-30] MEDS ORDERED: CLOP75TA28 PO (15:36)
--- NOTE | 2017-09-30 15:39 | Diagnostic Imaging Report ---
PROCEDURE: US Gallbladder. TECHNIQUE: Multiple real-time grayscale images were obtained over the right upper quadrant in various projections. INDICATION: Pain. COMPARISON: None. FINDINGS: Pancreas is unremarkable as visualized but incompletely seen. The liver appears unremarkable. There is no biliary dilatation. The common bile duct measures about 5 mm. Doppler imaging demonstrates normal hepatopetal flow in the main portal vein. The gallbladder appears unremarkable. Right kidney measures 11 cm in length and appears normal. There is no ascites or sonographic Cote's sign. IMPRESSION: No acute abnormality is seen. Incomplete visualization of the pancreas. Dictated by: Dictated on workstation # [id number]
[2017-09-30] MEDS ORDERED: CEPH500C PO (15:42)
[2017-09-30] MEDS ORDERED: INSU100V6 SQ (15:44)
[2017-09-30] MEDS ORDERED: PANT40TA2 PO (16:54)
[2017-09-30] MEDS ORDERED: PANTOPRAZOLE 40 MG (PROTONIX) TAB PO ONE (17:00)
[2017-09-30] MEDS ORDERED: meTOproloL SUCCINATE 50 MG (TOPROL XL) TAB PO SCH (17:30)
[2017-09-30] MEDS ORDERED: CLOPIDOGREL 75 MG (PLAVIX) TABLET PO ONE (17:30)
[2017-09-30] MEDS ORDERED: MIDAZOLAM 5 MG/5 ML (VERSED) VIAL ONE (17:38)
[2017-09-30] MEDS ORDERED: NITRO DRIP 25000 MCG/D5W 250 ML IV ONE (17:39)
[2017-09-30] MEDS ORDERED: NS IV 1000 ML 1,000 ML ONE (17:39)
[2017-09-30] MEDS ORDERED: fentaNYL INJECTION 100 MCG/2 ML AMP ONE (17:39)
[2017-09-30] MEDS ORDERED: HEParin (CATH LAB) 2,000 ML IV ONE (17:39)
[2017-09-30] MEDS ORDERED: HEParin 1000 UNIT/ML (10ML VIAL) FOR BOLUS ONE (17:39)
[2017-09-30] MEDS ORDERED: LIDOCAINE 1% INJ 50 ML (XYLOCAINE) VIAL ONE (17:40)
--- NOTE | 2017-09-30 18:14 | Cardiology History & Physical ---
[facility]-Cardiology Cardiology H&P Date of Admission 09/30/17 Primary Care Physician Ismael Shultz DO Attending Physician Consulting Physician [facility] CC: Chest pain HPI: 76 yo woman with epigastric pain and nausea that swtarte approx 6-7 hours ago. Pain mod to severe, improved with narcotic analgesics (but not s/l NTG), not experience before, has waxed and waned but not resolved. No aggravating factor. Has chronic exertional shortness of breath. Denies palp or syncope. Denies ankle swelling Review of Systems-Cardiology Review of Systems Constitutional: malaise, No weight loss, No weight gain Eyes: No vision change Ears/Nose/Throat: No ear discharge, No nasal drainage, No recent hearing loss Respiratory: As described under HPI Cardiovascular: As described under HPI Gastrointestinal: No constipation, No diarrhea, nausea, No vomiting Genitourinary: No dysuria, No hematuria, No urine frequency changes Musculoskeletal: back pain (chronic) Skin: No rash, No ulcerations Psychiatric/Neurological: No seizure, No focal weakness, No syncope Hematologic: No bleeding abnormalities EOU-Xbxqya-Kjfczi Hx Patient Social History Alcohol Use: Denies Use Recreational Drug Use: No Smoking Status: Current Everyday Smoker Type Used: Cigarettes Recent Foreign Travel: No Recent Infectious Disease Expo: No Immunizations Up To Date Tetanus Booster (TDap): Unknown Date of Pneumonia Vaccine: Jun 02, 2011 Date of Influenza Vaccine: Apr 02, 2016 Past Medical History PMH As described under Assessment. Family Medical History Family Medical History: She reports no family h/o CAD, stroke or SCD. Family History: FH: suicide FH: uterine cancer 19 MOTHER FHx: diabetes mellitus 19 MOTHER Allergies and Home Medications Allergies Coded Allergies: NKANo Known Allergies (Verified Allergy, Unknown, 04/27/13) Home Medications Aspirin 81 Mg Tablet.dr, 81 MG PO HS, (Reported) Atorvastatin Calcium 80 Mg Tablet, 80 MG PO HS, (Reported) Bismuth Subsalicylate 262 Mg/15 Ml Oral.susp, PO UD PRN for STOMACH UPSET, ( Reported) Carvedilol 3.125 Mg Tablet, 3.125 MG PO BID, (Reported) Cephalexin 500 Mg Capsule, 500 MG PO TID, (Reported) 7 DAY THERAPY FILLED 09-22-17 (PATIENT THINKS SHE HAS 4 CAPSULES LEFT) Citalopram Hydrobromide 10 Mg Tablet, 10 MG PO DAILY, (Reported) Clopidogrel Bisulfate 75 Mg Tablet, 75 MG PO 1200, (Reported) Gabapentin 300 Mg Capsule, 300 MG PO HS, (Reported) Guaifenesin/Dextromethorphan 5 Ml Syrup, 10 ML PO Q4H PRN for COUGH, (Reported) Insulin Glargine,Hum.rec.anlog 100 Unit/1 Ml Vial, 21 UNIT SQ 1800, (Reported) Tramadol HCl 50 Mg Tablet, 50 MG PO TID PRN for PAIN-MODERATE, (Reported) Patient Home Medication List Home Medication List Reviewed: Yes Physical Exam-Cardiology Physical Exam Vital Signs/I&O Vital Sign - Last 12Hours 09/30/17 11:58 Temp 98.0 Pulse 76 Resp 18 B/P (MAP) 158/90 (112) Pulse Ox 97 O2 Delivery Room Air Capillary Refill : Less Than 3 Seconds Constitutional: AAO x 3, well-developed, other (thin appearing) HEENT: PERRL, EOMI, hearing is well preserved, No xanthelasmas are seen Neck: No carotid bruit, carotid pulses are 2 + bilaterally, with good upstrokes Respiratory: No accessory muscle use, other (fair bilat air entry; prolonged exp phase) Cardiovascular: regular rate-rhythm, S1 and S2, systolic murmur (faint LELA at card base) Gastrointestinal: tender (epigastric tenderness to palpation), soft, No guarding, No rebound Extremities: No clubbing, No cyanosis, No significant edema Neurologic/Psychiatric: oriented x 3, grossly intact, power is 5/5 both on sides Skin: No rash on exposed areas, No ulcerations on exposed areas Data Review Labs Laboratory Tests 09/30/17 12:05: White Blood Count 7.5, Red Blood Count 4.81, Hemoglobin 15.4, Hematocrit 44, Mean Corpuscular Volume 91, Mean Corpuscular Hemoglobin 32, Mean Corpuscular Hemoglobin Concent 35, Red Cell Distribution Width 13.5, Platelet Count 299, Mean Platelet Volume 9.5, Neutrophils (%) (Auto) 52, Lymphocytes (%) (Auto) 36, Monocytes (%) (Auto) 9, Eosinophils (%) (Auto) 2, Basophils (%) (Auto) 1, Neutrophils # (Auto) 3.9, Lymphocytes # (Auto) 2.7, Monocytes # (Auto) 0.7, Eosinophils # (Auto) 0.2, Basophils # (Auto) 0.1, Prothrombin Time 12.8, INR Comment 1.0, Activated Partial Thromboplast Time 20L, Sodium Level 132L, Potassium Level 3.9, Chloride Level 96L, Carbon Dioxide Level 30, Anion Gap 6, Blood Urea Nitrogen 6L, Creatinine 1.02, Estimat Glomerular Filtration Rate 53, BUN/Creatinine Ratio 6, Glucose Level 232H, Calcium Level 9.2, Magnesium Level 2.0, Total Bilirubin 0.5, Aspartate Amino Transf (AST/SGOT) 12, Alanine Aminotransferase (ALT/SGPT) 6, Alkaline Phosphatase 84, Myoglobin 61.0, Troponin I < 0.30, Total Protein 7.5, Albumin 4.1, Lipase 35 09/30/17 14:50: Urine Color YELLOW, Urine Clarity CLEAR, Urine pH 7, Urine Specific [place] 1.005L, Urine Protein NEGATIVE, Urine Glucose (UA) 3+H, Urine Ketones NEGATIVE, Urine Nitrite NEGATIVE, Urine Bilirubin NEGATIVE, Urine Urobilinogen NORMAL, Urine Leukocyte Esterase NEGATIVE, Urine RBC (Auto) NEGATIVE, Urine RBC RARE, Urine WBC NONE, Urine Squamous Epithelial Cells NONE, Urine Crystals NONE, Urine Bacteria NEGATIVE, Urine Casts NONE, Urine Mucus NEGATIVE, Urine Culture Indicated NO 09/30/17 16:19: Troponin I 1.78*H Laboratory Tests 09/30/17 12:05 A/P-Cardiology Assessment/Admission Diagnosis Ac NSTEMI CAD. H/o PTCA to RI and LCX and stents to prox and distal RCA. Most recently, in early 2017, has undergone CABG (times 2, according) to the pt at [facility] Chronic tobacco use Probable COPD H/o hypertension DM II, insulin requiring Admission Status: Inpatient Order (span 2 midnights) Reason for Inpatient Admission: Acute [place] Discussion and Recomendations * We recommend urgent card cath due to ongoing symptoms * I spoke with her and explained the rationale, procedure, risks, benefits, potential complications, and alternatives of card cath and possible ad hoc cor intervention. She understands and provides informed consent * We advised her to quit smoking immediately and completely * She has been treated with aspirin and clopidogrel and beta-roxanna * Further decisions based on card cath and hosp course DORA HASSAN MD [facility] CCDS Sep 30, 2017 18:14
[2017-09-30] MEDS ORDERED: EPTIFIBATIDE BOLUS 10 ML IV ONE (18:40)
[2017-09-30] MEDS ORDERED: EPTIFIBATIDE DRIP 100 ML IV ONE (18:40)
[2017-09-30] MEDS ORDERED: niCARdipine 25 MG/10 ML (CARDENE) AMP IV ONE (18:50)
[2017-09-30] MEDS ORDERED: NS (IVPB) 250 ML ONE (18:51)
[2017-09-30] MEDS ORDERED: ASPIRIN 81 MG CHEW (CHILDREN'S ASA) ONE (19:22)
[2017-09-30] MEDS ORDERED: CLOPIDOGREL 300 MG (PLAVIX) TABLET PO ONE (19:22)
[2017-09-30] MEDS ORDERED: RX-TRAMADOL 50 MG (ULTRAM) TAB PPK#4 PO PRN (20:15)
[2017-09-30] MEDS ORDERED: PATIENT MAY USE OWN MEDS, ALL PO SCH (20:15)
[2017-09-30] MEDS ORDERED: BISMUTH SUBSALICYLATE 240 ML (PEPTO BISMOL) PO PRN (20:15)
[2017-09-30] MEDS ORDERED: guaiFENesin/DM (ROBITUSSIN DM) 10 ML UDC PO PRN (20:15)
--- NOTE | 2017-09-30 20:38 | CARDIAC CATHETERIZATION ---
DATE OF SERVICE: 09/30/2017 CARDIAC CATHETERIZATION AND CORONARY INTERVENTION REPORT PRIMARY PHYSICIAN: Ismael Shultz DO. INDICATION: The patient is a 76-year-old lady, who has had multiple coronary interventions in the past and had a coronary artery bypass surgery in early 2017 and presents with acute non-ST elevation myocardial infarction. Due to continuing symptoms, urgent cardiac catheterization and, if needed, coronary intervention were recommended. Informed consent was obtained. DESCRIPTION OF PROCEDURE: She was brought to the cardiac catheterization laboratory. Right groin was prepared and draped in the usual sterile fashion. Lidocaine 1% local anesthesia. Modified Seldinger technique was used to advance a 6-Tunisian sheath in the right femoral artery. A 6-Tunisian JL4 catheter was used for left coronary angiography. A 6-Tunisian JR4 catheter was used for right coronary angiography. A 6-Tunisian NAKITA catheter was used for angiography of the left internal mammary artery graft to the left anterior descending artery. Catheter exchanges were made over an exchange length wire because there was some difficulty with wire advancement in the beginning through the aortoiliac area. We used a 6-Tunisian pigtail catheter to carry out left heart catheterization. A 6-Tunisian JL4 catheter was used for left heart catheterization, left ventricular angiography. The catheter was then pulled back and removed. Percutaneous intervention to the saphenous vein graft to the ramus intermedius artery: The saphenous vein graft to the ramus intermedius artery was occluded and there appeared to be considerable thrombus in it. We initiated a double bolus of Integrilin and 5000 units of intravenous heparin and Integrilin infusion. We used a 6-Tunisian JL4 guide catheter to engage the saphenous vein graft. We advanced a ChoICE floppy wire. We were able to advance it across the occlusion. We carried out suction thrombectomy. Subsequently, we were able to see the entire extent of the graft down to its insertion into the distal ramus intermedius. There appeared to be 95% stenosis at the site of insertion. We carried out balloon angioplasty with Emerge 2.0 x 30 mm balloon at that site. This improved the stenosis from 95% to approximately 70%. We removed the balloon and implanted a stent at the site of insertion. We used to a Mini Vision 2.0 x 12 mm stent, which was deployed at 14 atmospheres. Subsequent angiography revealed 0% residual stenosis at the site of insertion. Within the graft itself, there appeared to be ulcerated plaque and haziness in its proximal and mid portions. We stented this area with an Alpine Xience 3.0 x 38 mm stent, which was deployed at 20 atmospheres. Subsequent angiography revealed 0% residual stenosis throughout the course of the graft and into its insertion into the ramus intermedius and flow throughout the vessel was normal. The patient received a total of 800 mcg of intracoronary nicardipine. Overall, she tolerated the procedure well. After removal of the angiography equipment, we carried out angiography of the right femoral artery through the sheath and Mynx was used to achieve hemostasis. She was transferred to the cardiac catheterization laboratory in a stable condition. HEMODYNAMICS: Left ventricular end-diastolic pressure following coronary angiography was 12 mmHg. There is no significant pressure gradient on pullback across the aortic valve. Ascending aortic pressure was 132/62 with a mean of 65 mmHg. LEFT VENTRICULAR ANGIOGRAPHY: Left ventricular angiography was carried out in the right anterior oblique projection. There is diaphragmatic hypokinesis to akinesis. Global left ventricular systolic function appears mildly impaired. Left ventricular ejection fraction is estimated to be approximately 50%. There did not appear to be significant mitral regurgitation. CORONARY ANGIOGRAPHY: Left main coronary artery does not exhibit significant disease. Left anterior descending artery had multiple 70% to 80% stenosis in its proximal and mid portions. A ramus intermedius artery is occluded in its proximal to mid portion. The left circumflex artery has a long 70% stenosis in its proximal portion. The right coronary artery is dominant. There are two patent stents, one in the proximal portion of the right coronary artery and one in the distal portion of the right coronary artery. These are patent without significant in-stent restenosis. A small caliber posterior descending branch of the right coronary artery has 70% ostial and proximal stenosis but is not amenable to intervention. Saphenous vein graft angiography: Saphenous vein graft to ramus intermedius artery was completely occluded. Following percutaneous intervention, as detailed above, the was restored to 0% residual stenosis with normal antegrade flow. The patient received a Mini Vision 2.0 x 12 mm stent at the site of insertion of the graft into the ramus intermedius and Alpine Xience 3.0 x 38 mm stent in the proximal and mid portion of the saphenous vein graft. Angiography of the left internal mammary artery graft to the left anterior descending artery: Left internal mammary artery graft to left anterior descending artery is patent. This is small, but does not exhibit significant stenosis. CONCLUSIONS: 1. Coronary artery disease consisting of severe proximal disease of the left anterior descending artery, proximal occlusion of the ramus intermedius, moderately severe long stenosis in the proximal portion of left circumflex, and moderately severe stenosis in a small caliber posterior descending branch of the right coronary artery. 2. Occlusion of the saphenous vein graft to the ramus intermedius artery to which successful intervention was carried out. Following deployment of Mini Vision 2.0 x 12 mm stent at the site of insertion of the graft into the ramus intermedius and placement of Alpine Xience 3.0 x 38 mm stent in the proximal and mid portions of the graft, there is 0% residual stenosis and flow throughout the graft and into the ramus intermedius is normal. 3. Patent, albeit small caliber, left internal mammary artery graft to the distal left anterior descending artery. 4. Normal left ventricular end-diastolic pressure. 5. Diaphragmatic wall akinesis of the left ventricle. 6. Left ventricular ejection fraction is estimated to be 50%. DISCUSSION AND RECOMMENDATIONS: She is being hospitalized. She has been advised to quit smoking immediately and completely. Therapy with the aspirin, Plavix, beta-blockers, statins will be continued. We will add TAM inhibitors, if tolerated. Further recommendations will be based on her hospital course. Job ID: [id number] DocumentID: [id number] Dictated Date: 09/30/2017 19:41:00 Film Booker Date: 09/30/2017 20:37:51 Dictated By: DORA HASSAN MD, MA, FACP, FACC, MTDD
[2017-09-30] MEDS ORDERED: NON-FORMULARY MEDICATION 1 EA EA (Cephalexin 500 MG) PO SCH (21:00)
[2017-09-30] MEDS: CEPHALEXIN 250 MG (KEFLEX) CAP PO SCH (22:22)
[2017-09-30] MEDS: GABAPENTIN 300 MG (NEURONTIN) CAP PO SCH (22:22)
[2017-09-30] MEDS: ATORVASTATIN 80 MG (LIPITOR) TABLET PO SCH (22:22)
[2017-09-30] MEDS: CARVEDILOL 3.125 MG (COREG) TABLET PO SCH (22:23)
[2017-10-01] VITALS (9 sets, daily range): BP systolic 70–106; BP diastolic 38–75
[2017-10-01 03:36] LABS: HEMOGLOBIN 13.6 G/DL (11.5-16.0); MEAN PLATELET VOLUME 9.8 FL (7.4-10.4); RED BLOOD COUNT 4.26 10^6/uL (4.35-5.85); RED CELL DISTRIBUTION WIDTH 13.5 % (10.0-14.5); WHITE BLOOD COUNT 7.7 10^3/uL (4.3-11.0)
[2017-10-01 04:06] LABS: CALCIUM 8.5 MG/DL (8.5-10.1); CREATININE SERUM 0.96 MG/DL (0.60-1.30); POTASSIUM 4.2 MMOL/L (3.6-5.0)
[2017-10-01 04:14] LABS: CHOLESTEROL 134 MG/DL (< 200); HDL CHOLESTEROL 32 MG/DL (40-60); TRIGLYCERIDES 164 MG/DL (<150); VLDL CHOLESTEROL 33 MG/DL (5-40)
--- NOTE | 2017-10-01 07:40 | Consultation ---
History of Present Illness History of Present Illness Patient Consulted On(lara/time) 10/01/17 07:34 Time Seen by Provider: 07:35 History of Present Illness Came to the emergency room due to chest pain. Pain was in her upper abdomen to upper esophagus to neck and shoulders. Patient states she had diaphoresis. Patient states she was too weak to walk. Second troponin elevated. Patient has history of still smoking. Patient has COPD. Surgeries complete hysterectomy, 2 bypass, and 2 stents, Family history has asthma and heart disease. Had patient is a headaches dizziness. HEENT denies diplopia tinnitus or throat heart see chief complaint lungs patient is smoker. Gastrointestinal patient states she will a 60 enema Allergies and Home Medications Allergies Coded Allergies: NKANo Known Allergies (Verified Allergy, Unknown, 04/27/13) Home Medications Aspirin 81 Mg Tablet.dr, 81 MG PO HS, (Reported) Atorvastatin Calcium 80 Mg Tablet, 80 MG PO HS, (Reported) Bismuth Subsalicylate 262 Mg/15 Ml Oral.susp, PO UD PRN for STOMACH UPSET, ( Reported) Carvedilol 3.125 Mg Tablet, 3.125 MG PO BID, (Reported) Cephalexin 500 Mg Capsule, 500 MG PO TID, (Reported) 7 DAY THERAPY FILLED 09-22-17 (PATIENT THINKS SHE HAS 4 CAPSULES LEFT) Citalopram Hydrobromide 10 Mg Tablet, 10 MG PO DAILY, (Reported) Clopidogrel Bisulfate 75 Mg Tablet, 75 MG PO 1200, (Reported) Gabapentin 300 Mg Capsule, 300 MG PO HS, (Reported) Guaifenesin/Dextromethorphan 5 Ml Syrup, 10 ML PO Q4H PRN for COUGH, (Reported) Insulin Glargine,Hum.rec.anlog 100 Unit/1 Ml Vial, 21 UNIT SQ 1800, (Reported) Tramadol HCl 50 Mg Tablet, 50 MG PO TID PRN for PAIN-MODERATE, (Reported) Patient Home Medication List Home Medication List Reviewed: Yes Past Elvtvtu-Zifchl-Zcyvdh Hx Patient Social History Alcohol Use: Denies Use Recreational Drug Use: No Smoking Status: Current Everyday Smoker Type Used: Cigarettes Recent Foreign Travel: No Contact w/Someone Who Travel: No Recent Infectious Disease Expo: No Recent Hopitalizations: No Immunizations Up To Date Tetanus Booster (TDap): Unknown PED Vaccines UTD: No Date of Pneumonia Vaccine: Jun 02, 2011 Date of Influenza Vaccine: Apr 02, 2017 Seasonal Allergies Seasonal Allergies: No Surgeries History of Surgeries: Yes (CARPAL TUNNEL BILAT. KNEE SURGERY ) Surgeries: Appendectomy, Cardiac, CABG, Section, Coronary Stent, Hysterectomy, Oophorectomy, Orthopedic Respiratory History of Respiratory Disorde: Yes Respiratory Disorders: COPD Cardiovascular History of Cardiac Disorders: Yes (HEART CATH X2, UNKNOWN AMOUNT OF STENTS) Cardiac Disorders: Coronary Artery Disease, Heart Attack, High Cholesterol, Irregular Heartbeat Neurological History of Neurological Disord: Yes Neurological Disorders: Neuropathy, Seizure Disorder, TIA Reproductive System Hx Reproductive Disorders: No Sexually Transmitted Disease: No HIV/AIDS: No Female Reproductive Disorders: Denies [employer] History: Hysterectomy Gastrointestinal History of Gastrointestinal Di: Yes Gastrointestinal Disorders: Gastroesophageal Reflux, Ulcer Musculoskeletal History of Musculoskeletal Dis: Yes Musculoskeletal Disorders: Osteoporosis, Arthritis, Chronic Back Pain Endocrine History of Endocrine Disorders: Yes (OWNS GLUCOMETER, BUT NEVER CHECKS BLOOD SUGAR AND DOES NOT FOLLOW DIET. ) Endocrine Disorders: Diabetes, Insulin dep HEENT History of HEENT Disorders: Yes HEENT Disorders: Cataract Loss of Vision: Denies Hearing Impairment: Denies Cancer History of Cancer: No Psychosocial History of Psychiatric Problem: Yes Behavioral Health Disorders: Anxiety, Depression Integumentary History of Skin or Integumenta: No Blood Transfusions History of Blood Disorders: No Adverse Reaction to a Blood Tr: No Family Medical History Significant Family History: No Pertinent Family Hx Family Medial History: FH: suicide FH: uterine cancer 19 MOTHER FHx: diabetes mellitus 19 MOTHER Review of Systems-General Constitutional: weakness EENTM: no symptoms reported Cardiovascular: chest pain, vascular heart diseas Gastrointestinal: no symptoms reported, other (Not hungry weight loss) Genitourinary: no symptoms reported Physical Exam-General Problems Physical Exam Vital Signs Vital Signs - First Documented 09/30/17 09/30/17 11:58 19:43 Temp 98.0 Pulse 76 Resp 18 B/P (MAP) 158/90 (112) Pulse Ox 97 O2 Delivery Room Air O2 Flow Rate 2.00 Capillary Refill : Less Than 3 Seconds General Appearance: no apparent distress, thin Eyes: Bilateral Eye Normal Inspection HEENT: normal ENT inspection, other (Dentulous) Neck: non-tender Respiratory: lungs clear, no respiratory distress, no accessory muscle use, decreased breath sounds Cardiovascular: regular rate, rhythm, no JVD Gastrointestinal: non tender, soft Assessment/Plan Assessment/Plan Admission Diagnosis/Plan Acute NSTE ND. Coronary artery disease. CABG 2017. Diabetes. Tobacco usage. COPD. History of hypertension. Diabetes. Hyperlipidemia Clinical Quality Measures AMI/AHF: ASA po Prior to arrival: No DVT/VTE Risk/Contraindication: Risk Factor Score Per Nursin RFS Level Per Nursing on Admit: 4+=Very High MERRICK SIEGEL DO Oct 01, 2017 07:40
[2017-10-01] MEDS: ASPIRIN 81 MG CHEW (CHILDREN'S ASA) PO SCH (08:26)
[2017-10-01] MEDS: CEPHALEXIN 250 MG (KEFLEX) CAP PO SCH ×3 (08:26→21:36)
[2017-10-01] MEDS: CLOPIDOGREL 75 MG (PLAVIX) TABLET PO SCH (08:26)
[2017-10-01] MEDS ORDERED: lisINopril 5 MG (PRINIVIL) TABLET PO SCH (09:00)
[2017-10-01] MEDS: CARVEDILOL 3.125 MG (COREG) TABLET PO SCH (12:28)
--- NOTE | 2017-10-01 13:16 | Progress Note-Cardiology ---
Cardiology SOAP Progress Note Subjective: No cp or palp or syncope Has chronic exertional shortness of breath Reports chronic bilateral leg weakness. Has chronic difficulty with ambulation due to that, according to her Objective: I&O/Vital Signs Vital Sign - Last 12Hours 10/01/17 10/01/17 10/01/17 10/01/17 04:00 04:00 07:00 08:00 Temp 99.0 Pulse 67 60 Resp 16 B/P (MAP) 95/63 (74) Pulse Ox 92 98 O2 Delivery Room Air Room Air Room Air 10/01/17 10/01/17 10/01/17 10/01/17 08:29 09:00 12:00 12:00 Temp 97.2 97.5 Pulse 72 75 Resp 18 20 B/P (MAP) 97/58 (71) 92/51 (65) Pulse Ox 98 98 98 98 O2 Delivery Room Air Nasal Cannula Room Air Room Air Intake and Output 10/01/17 00:00 Intake Total 1000 ml Output Total 500 ml Balance 500 ml Weight (Pounds): 132 Weight (Ounces): 0.0 Weight (Calculated Kilograms): 59.602588 Device Insertion Site: without hematoma Swelling: mild amount of swelling Bruising: mild bruising Constitutional: AAO x 3, well-developed, other (thin appearing) Respiratory: No accessory muscle use, other (fair bilat air entry; prolonged exp phase) Cardiovascular: regular rate-rhythm, S1 and S2, systolic murmur (faint LELA at card base) Gastrointestional: tender (epigastric tenderness to palpation), soft, No guarding, No rebound Extremities: No clubbing, No cyanosis, No significant edema Neurologic/Psychiatric: oriented x 3, grossly intact, power is 5/5 both on sides Skin: No rash on exposed areas, No ulcerations on exposed areas Results/Procedures: Labs Laboratory Tests 09/30/17 14:50: Urine Color YELLOW, Urine Clarity CLEAR, Urine pH 7, Urine Specific [place] 1.005L, Urine Protein NEGATIVE, Urine Glucose (UA) 3+H, Urine Ketones NEGATIVE, Urine Nitrite NEGATIVE, Urine Bilirubin NEGATIVE, Urine Urobilinogen NORMAL, Urine Leukocyte Esterase NEGATIVE, Urine RBC (Auto) NEGATIVE, Urine RBC RARE, Urine WBC NONE, Urine Squamous Epithelial Cells NONE, Urine Crystals NONE, Urine Bacteria NEGATIVE, Urine Casts NONE, Urine Mucus NEGATIVE, Urine Culture Indicated NO 09/30/17 16:19: Troponin I 1.78*H 10/01/17 03:10: White Blood Count 7.7, Red Blood Count 4.26L, Hemoglobin 13.6, Hematocrit 40, Mean Corpuscular Volume 93, Mean Corpuscular Hemoglobin 32, Mean Corpuscular Hemoglobin Concent 34, Red Cell Distribution Width 13.5, Platelet Count 277, Mean Platelet Volume 9.8, Sodium Level 137, Potassium Level 4.2, Chloride Level 103, Carbon Dioxide Level 25, Anion Gap 9, Blood Urea Nitrogen 7, Creatinine 0.96, Estimat Glomerular Filtration Rate 57, BUN/Creatinine Ratio 7, Glucose Level 128H, Calcium Level 8.5, Triglycerides Level 164H, Cholesterol Level 134, LDL Cholesterol Direct 80, VLDL Cholesterol 33, HDL Cholesterol 32L 10/01/17 08:16: Glucometer 144H Laboratory Tests 09/30/17 12:05 10/01/17 03:10 A/P: Assessment: Ac NSTEMI on 09/30/17 due to occlusion of SVG to RI, treated with PCI (see below) Last card cath and cor intervention of 09/30/17: CAD consisting of severe proximal disease of the LAD, proximal occlusion of the RI, moderately severe long stenosis in the proximal portion of LCX, patent stents in prox and distal RCA (Taxus 3 mm stents) and moderately severe stenosis in a small caliber PDA from RCA; Occlusion of the SVG to RI treated successfully with deployment of Mini Vision 2.0 x 12 mm stent at the site of insertion of the graft into the RI and placement of Alpine Xience 3.0 x 38 mm stent in the proximal and mid portions of the graft; Patent, albeit small caliber, HUFF to the LAD; Normal LVEDP; Diaphragmatic akinesis of the left ventricle; LVEF approx 50%. Chronic tobacco use Probable COPD H/o hypertension DM II, insulin requiring Chronic bilateral leg weakness Relatively low bp does not allow full treatment with bb and TAM-inhib/ARB Plan: * Complex management due to multiple comorbidities * We are trying to titrate meds to an acceptable bp * PT/OT * Advised to quit smoking * Advised med compliance Clinical Quality Measures AMI/AHF: ASA po Prior to arrival: DORA Johnson MD FACP [facility] CCDS Oct 01, 2017 13:15
--- NOTE | 2017-10-01 14:06 | Physical Therapy Evaluation ---
PT Evaluation-General Medical Diagnosis Admission Date September 30, 2017 Medical Diagnosis: CP/s/p heart cath Onset Date: Sep 30, 2017 Therapy Diagnosis Therapy Diagnosis: debility/weakness Height/Weight Height (Feet): 5 Height (Inches): 7.00 Weight (Pounds): 132 Weight (Ounces): 0.0 Precautions Precautions/Isolations: Fall Prevention, Standard Precautions Weight Bear Status Right Lower Extremity: Right Full Weight Bearing Left Lower Extremity: Left Full Weight Bearing Referral Physician: Lucas Reason for Referral: Evaluation/Treatment Medical History Pertinent Medical History: CABG, CAD, COPD, DM, HTN, Neuropathy, Smoking Current History s/p heart cath after ED secondary to CP Reviewed History: Yes Social History Home: Single Level Current Living Status: Spouse Prior/Core FIM Prior Level of Function Functional [place] Measure 0=Not Assessed/NA 4=Minimal Assistance 1=Total Assistance 5=Supervision or Setup 2=Maximal Assistance 6=Modified [place] 3=Moderate Assistance 7=Complete [place] Bed Mobility: 7 Transfers (B,C,W/C) (FIM): 7 Gait: 7 patient has cane and FWW and does not utilize PT Evaluation-Current Subjective Patient agrees to PT. Pain Numeric Pain Scale: 7 Location: Soft Tissue Location Body Site: Sacrum Pain Description: Pressure, Sharp Objective Patient Orientation: Normal For Age Problem Solving: Good ROM/Strength ROM Lower Extremities bilateral LE WNL Strength Lower Extremities right knee flexion/extension 4-/5; hip flexion 4/5; DF/PF 4/5 left knee flexion/extension 4-/5; hip flexion 4/5; DF/PF 4/5 Integumentary/Posture Integumentary refer to nursing notes Bowel Incontinence: No Bladder Incontinence: No Posture slightly kyphotic Neuromuscular (Tone, Coordination, Reflexes) diminished coordination bilateral LE with ambulation Sensory Vision: Wears Glasses Hearing: Functional Sensation Right Lower Extremit: Impaired Sensation Left Lower Extremity: Impaired Transfers Functional [place] Measure 0=Not Assessed/NA 4=Minimal Assistance 1=Total Assistance 5=Supervision or Setup 2=Maximal Assistance 6=Modified [place] 3=Moderate Assistance 7=Complete [place] Transfers (B, C, W/C) (FIM): 7 Scootin Rollin Supine to/from Sit: 7 Sit to/from Stand: 7 Gait Mode of Locomotion: Walk Anticipated Mode of Locomotion: Walk Gait (FIM): 1 Distance (FIM): 1=up to 49 ft Distance: 40' Gait Level of Assist: 4 Gait Persons Needed: 1 Gait Assistive Device: FWW Comments/Gait Description 1 episode of bilateral LE weakness with noted ataxia Balance Sitting Static: Normal Sitting Dynamic: Normal Standing Static: Fair Standing Dynamic: Fair Assessment/Needs 76 y.o. female, will benefit from skilled PT to address functional strength and mobility to improve current LOF. Rehab Potential: Fair Post Rehab Potential-Barriers: compliance PT Short Term Goals Short Term Goals Time Frame: Oct 08, 2017 Transfers (B,C,W/C) (FIM): 7 Gait (FIM): 6 Gait Level of Assist: 6 Gait Assistive Device: FWW PT Plan Problem List Problem List: Activity Tolerance, Functional Strength, Safety, Balance, Gait Treatment/Plan Treatment Plan: Continue Plan of Care Treatment Plan: Education, Functional Activity Karen, Functional Strength, Gait , Safety, Therapeutic Exercise, Transfers Treatment Duration: Oct 08, 2017 Frequency: 6 times per week Estimated Hrs Per Day: .25 hour per day Patient and/or Family Agrees t: Yes Safety Risks/Education Patient Education: Safety Issues Teaching Recipient: Patient, Significant Other Teaching Methods: Discussion Response to Teaching: Verbalize Understanding Discharge Recommendations Therapy D/C Recommendations: Home w/ Family Support Time/GCodes Time In: 1235 Time Out: 1300 Total Billed Treatment Time: 25 Total Billed Treatment 1 visit EVModC 25 min G Codes Necessary: Yes PT/OT Therapy GCodes Therapy Functional Limitation: Physical Therapy Test(s)/Tool used to determine: Level of Assistance Scale Functional Limitation-Current Charge Code: MOBCUR Modifier: CK Functional Limitation-Goal Charge Code: MOBGOAL Modifier: ERASTO MEIER PT Oct 01, 2017 14:06
--- NOTE | 2017-10-01 14:19 | Occupational Therapy Eval ---
OT Evaluation-General/PLF Medical Diagnosis Admission Date 09/30/17 Medical Diagnosis: CP/s/p heart cath Onset Date: Sep 30, 2017 Therapy Diagnosis Therapy Diagnosis: debility Height/Weight Height (Feet): 5 Height (Inches): 7.00 Weight (Pounds): 132 Weight (Ounces): 0.0 Precautions Precautions/Isolations: Fall Prevention, Standard Precautions Referral Physician: Lucas Medical History Pertinent Medical History: CABG, CAD, COPD, DM, HTN, Neuropathy, Smoking Additional Medical History bilateral carpal tunnel, VT, high cholesterol, seizure disorder, TIA, GERD, osteoporosis, chronic back pain, anxiety, depression Reviewed History: Yes Social History Home: Single Level Current Living Status: Spouse Entry Into Home: Stairs Without Railing Steps Into Home: 2 ADL-Prior Level of Function ADL PLOF Comments Pt reports being independent with basic self care, but states she has fallen frequently over the last two months. Has a cane and walker, but does not use. Pt states she does not get into the shower secondary to fear of falling. DME/Equipment: Tub/Shower Drive Self: No OT Current Status Subjective Pt sitting up in bed, agrees to therapy. Pt reports 9/10 pain in feet, legs, and lower back. Requests pain medication. RN was notified. Mental Status/Objective Patient Orientation: Person, Place, Situation Current Glasses/Contacts: Yes Hearing Aids: No Dentures/Partials: Yes Hand Dominance: Right Upper Extremity ROM Grossly WFL Upper Extremity Coordination Intact Upper Extremity Sensation Intact per pt report Upper Extremity Strength Mildly decreased. ADL-Treatment ADL-Current Pt ordered lunch independently, states she is having no difficulty feeding herself. Pt supine to sit with modified independence. Pt sat EOB with good balance. Pt demonstrated ability to doff/don socks independently at EOB. Sit to stand with modified independence. Pt demonstrates ability to transfer with supervision using FWW. Pt has some unsteadiness, but did not require physical assistance. Pt returned to EOB and completed sit to supine without assistance. Pt resting in bed with needs met after session. Functional [place] Measure 0=Not Assessed/NA 4=Minimal Assistance 1=Total Assistance 5=Supervision or Setup 2=Maximal Assistance 6=Modified [place] 3=Moderate Assistance 7=Complete IndependenceIRFPAI Quality Coding Scale 6 Independent with activity with or without an assistive device 5 Patient requires set up or clean up by helper. Patient completes activity by themselves 4 Supervision or touching assist (CGA). [place] provide cues , steadying assist 3 The helper provides less than half the effort to complete the activity 2 The helper provides more than half the effort to complete the activity 1 Dependent. The helper does all the effort to complete an activity 7 Patient refused to complete or attempt activity 9 The patient did not perform the activity before the current illness or injury 88 Not attempted due to Medical conditions or safety concerns Eating (FIM): 6 (by report) Lower Body Dressing (FIM): 5 (socks only) Transfers (B, C, W/C) (FIM): 5 Education OT Patient Education: Rehab process Teaching Recipient: Patient Teaching Methods: Discussion Response to Teaching: Verbalize Understanding OT Short Term Goals Short Term Goals 1=Demonstrate adherence to instructed precautions during ADL tasks. 2=Patient will verbalize/demonstrate understanding of assistive devices/ modifications for ADL. 3=Patient will improve strength/tolerance for activity to enable patient to perform ADL's. OT Senior Net Software Engineer Goals Halfway Goals Time Frame: Oct 08, 2017 Grooming(FIM): 6 Bathing(FIM): 5 Upper Body Dressing(FIM): 6 Lower Body Dressing(FIM): 6 Toileting(FIM): 6 Toilet/Commode Transfer(FIM): 6 Additional Goals: 2-Verbalize Understanding, 3-ImproveStrength/Karen 1=Demonstrate adherence to instructed precautions during ADL tasks. 2=Patient will verbalize/demonstrate understanding of assistive devices/ modifications for ADL. 3=Patient will improve strength/tolerance for activity to enable patient to perform ADL's. OT Education/Plan Problem List/Assessment Assessment: Dependent Transfers, Impaired Funct Balance, Impaired Self-Care Skills Pt to benefit from skilled OT intervention while hospitalized for ADL training, transfers, strengthening, and safety education to increase level of independence and allow safe discharge. Discharge Recommendations Plan/Recommendations: Continue POC Treatment Plan/Plan of Care Treatment,Training & Education: Yes Patient would benefit from OT for education, treatment and training to promote independence in ADL's, mobility, safety and/or upper extremity function for ADL' s. Plan of Care: ADL Retraining, Functional Mobility, UE Funct Exercise/Act Treatment Duration: Oct 08, 2017 Frequency: 5 times per week Estimated Hrs Per Day: .25 hour per day Rehab Potential: Fair Time/GCodes Start Time: 13:32 Stop Time: 13:57 Total Time Billed (hr/min): 25 Billed Treatment Time 1 visit, EVM(25minutes) PT/OT Therapy GCodes Therapy Functional Limitation: Occupational Therapy Test(s)/Tool used to determine: FIM Functional Limitation-Current Charge Code: SELFCUR Modifier: CJ Functional Limitation-Goal Charge Code: SELFGOAL Modifier: RAIMUNDO REYNA OT Oct 01, 2017 14:19
--- NOTE | 2017-10-01 15:10 | Diagnostic Imaging Report ---
INDICATION: Chronic back pain. EXAMINATION: Axial imaging through the thoracic and lumbar spine was performed without contrast. Sagittal and coronal reformations were also performed. FINDINGS: There is normal thoracic kyphotic curvature and lumbar lordotic curvature. The vertebral body heights are maintained. No acute compression fracture is detected. There is generalized thoracic and lumbar spondylosis. Bony canal is patent. There is trefoil stenosis to the canal at the L3-4 and L4-5 levels due to ligamentous thickening as well as broad-based disc/osteophyte complex. The aorta is highly calcified and nonaneurysmal. IMPRESSION: Thoracolumbar spondylosis and probable central canal stenosis at L3-4 and L4-5 levels. No acute compression fracture is detected. Dictated by: Dictated on workstation # [id number]
--- NOTE | 2017-10-01 15:11 | Diagnostic Imaging Report ---
PROCEDURE: CT head and CT cervical spine without contrast. TECHNIQUE: Multiple contiguous axial images were obtained through the brain and cervical spine without the use of intravenous contrast. Sagittal and coronal reformations through the cervical spine were then performed. INDICATION: Headache and neck pain. Correlation is made with prior CT from 02/14/2017. CT HEAD: The ventricles and sulci are appropriate for the patient's age. Periventricular hypodensity is noted consistent with chronic microvascular ischemia. No sulcal effacement is seen. There is no midline shift. No acute intra-axial or extra-axial hemorrhage is detected. The cisterns are patent. The visualized paranasal sinuses are clear. IMPRESSION: Chronic changes. No acute intracranial process is detected. CT CERVICAL SPINE: Curvature of the cervical spine is normal. Minimal anterolisthesis C4 on C5 with retrolisthesis C5 on C6 is seen. There is significant degenerative disc disease C5-C6 and C6-C7 levels with disc space narrowing and marginal spurring. The prevertebral tissues are normal. No fractures are seen. The odontoid is intact. IMPRESSION: Cervical spondylosis. No acute bony abnormality is detected. Dictated by: Dictated on workstation # [id number]
[2017-10-01] MEDS ORDERED: INSULIN GLARGINE HUM REC ANLOG 21 UNIT SQ SCH (18:00)
[2017-10-01] MEDS: inSUlin DETERMIR 1 UNIT/0.01 ML (LEVEMIR) CHARGE PER UNIT SQ SCH (19:03)
[2017-10-01] MEDS: inSUlin ASPART (NovoLOG) 1 UNIT/0.01 ML (CHARGE PER UNIT) SC SCH (19:04)
[2017-10-01] MEDS ORDERED: ACETAMINOPHEN 500 MG TAB (TYLENOL) PO PRN (21:30)
[2017-10-01] MEDS ORDERED: ACETAMINOPHEN 325 MG TABLET/CAPLET (TYLENOL) ONE (21:30)
[2017-10-01] MEDS: GABAPENTIN 300 MG (NEURONTIN) CAP PO SCH (21:36)
[2017-10-01] MEDS: ATORVASTATIN 80 MG (LIPITOR) TABLET PO SCH (21:36)
[2017-10-01] MEDS: NS IV 1000 ML 1,000 ML IV SCH (21:37)
[2017-10-02] VITALS (20 sets, daily range): BP systolic 75–154; BP diastolic 38–96
[2017-10-02 00:39] LABS: BASOPHILS % (AUTO) 0 % (0-10); EOSINOPHILS # (AUTO) 0.1 10^3/uL (0.0-0.3); EOSINOPHILS % (AUTO) 1 % (0-10); HEMATOCRIT 36 % (35-52); HEMOGLOBIN 12.4 G/DL (11.5-16.0); LYMPHOCYTES # (AUTO) 2.3 X 10^3 (1.0-4.0); LYMPHOCYTES % (AUTO) 24 % (12-44); MEAN CORPUSCULAR HEMOGLOBIN 33 PG (25-34); MEAN CORPUSCULAR HGB CONC 35 G/DL (32-36); MEAN CORPUSCULAR VOLUME 93 FL (80-99); MEAN PLATELET VOLUME 9.6 FL (7.4-10.4); MONOCYTES % (AUTO) 10 % (0-12); NEUTROPHILS # (AUTO) 5.9 X 10^3 (1.8-7.8); NEUTROPHILS % (AUTO) 64 % (42-75); PLATELET COUNT 238 10^3/uL (130-400); RED BLOOD COUNT 3.81 10^6/uL (4.35-5.85); RED CELL DISTRIBUTION WIDTH 13.4 % (10.0-14.5); WHITE BLOOD COUNT 9.3 10^3/uL (4.3-11.0)
[2017-10-02] MEDS ORDERED: NS IV 500 ML 500 ML ONE (01:59)
[2017-10-02] MEDS ORDERED: NS IV 500 ML 500 ML IV ONE ×2 (02:15→03:00)
[2017-10-02 03:29] LABS: BASOPHILS % (AUTO) 0 % (0-10); EOSINOPHILS # (AUTO) 0.1 10^3/uL (0.0-0.3); EOSINOPHILS % (AUTO) 2 % (0-10); HEMATOCRIT 34 % (35-52); HEMOGLOBIN 11.7 G/DL (11.5-16.0); LYMPHOCYTES # (AUTO) 2.8 X 10^3 (1.0-4.0); LYMPHOCYTES % (AUTO) 32 % (12-44); MEAN CORPUSCULAR HEMOGLOBIN 32 PG (25-34); MEAN CORPUSCULAR HGB CONC 35 G/DL (32-36); MEAN CORPUSCULAR VOLUME 93 FL (80-99); MEAN PLATELET VOLUME 9.6 FL (7.4-10.4); MONOCYTES # (AUTO) 0.8 X 10^3 (0.0-1.0); MONOCYTES % (AUTO) 9 % (0-12); NEUTROPHILS # (AUTO) 4.9 X 10^3 (1.8-7.8); NEUTROPHILS % (AUTO) 57 % (42-75); PLATELET COUNT 224 10^3/uL (130-400); RED BLOOD COUNT 3.62 10^6/uL (4.35-5.85); RED CELL DISTRIBUTION WIDTH 13.3 % (10.0-14.5); WHITE BLOOD COUNT 8.6 10^3/uL (4.3-11.0)
[2017-10-02 03:50] LABS: BUN/CREATININE RATIO 9; CALCIUM 7.8 MG/DL (8.5-10.1); CARBON DIOXIDE 24 MMOL/L (21-32); CHLORIDE 105 MMOL/L (98-107); CREATININE SERUM 0.89 MG/DL (0.60-1.30); GFR ESTIMATED > 60; GLUCOSE 102 MG/DL (70-105); MAGNESIUM 2.3 MG/DL (1.8-2.4); PHOSPHORUS 4.2 MG/DL (2.3-4.7); POTASSIUM 4.2 MMOL/L (3.6-5.0); SODIUM 135 MMOL/L (135-145)
[2017-10-02] MEDS ORDERED: POTASSIUM CL 10MEQ/50ML IVPB 50 ML IV SCH (06:00)
[2017-10-02] MEDS ORDERED: KCL 20 MEQ TAB (K-DUR) PO SCH (06:00)
[2017-10-02] MEDS ORDERED: MAGNESIUM 1 GM/100 ML IVPB 100 ML IV SCH (06:00)
[2017-10-02] MEDS: inSUlin ASPART (NovoLOG) 1 UNIT/0.01 ML (CHARGE PER UNIT) SC SCH ×4 (06:16→21:04)
[2017-10-02] MEDS: NS IV 1000 ML 1,000 ML IV SCH (06:21)
[2017-10-02] MEDS: ASPIRIN 81 MG CHEW (CHILDREN'S ASA) PO SCH (09:09)
[2017-10-02] MEDS: CLOPIDOGREL 75 MG (PLAVIX) TABLET PO SCH (09:10)
--- NOTE | 2017-10-02 10:05 | Diagnostic Imaging Report ---
Clinical indication: Patient with dyspnea. Exam: Patient with shortness of air. Exam: Portable chest x-ray upright view. Comparisons: Chest x-ray dated 09/30/2017. Findings: Lungs/pleura: Stable mild bibasilar atelectasis versus scarring. Otherwise, lungs are clear. There is no pneumothorax. There is no pleural effusion. Mediastinum: Unremarkable. Pulmonary vasculature: Unremarkable. Heart: Heart size within normal limits. Stable postop changes to the chest with sternotomy wires and mediastinal clips likely related to CABG. Bones/extrathoracic soft tissue: Unremarkable. Impression: Stable chest x-ray exam with no interval radiographic evidence of acute cardiopulmonary process. Dictated by: Dictated on workstation # [id number]
--- NOTE | 2017-10-02 12:04 | Progress Note-Standard ---
Standard Progress Note Progress Notes/Assess & Plan Date Seen 10/02/17 Time Seen by Provider: 11:30 Assess & Plan/Chief Complaint Patient is doing much better since hypotensive episode likely due to Toprol-XL 50 MG given and responded to IV fluids Had 2 stents placed due to acute non-ST elevation DE Doing well otherwise except for her chronic neuropathic pain in her legs Smoking cessation discussed No fever, vital signs stable presently, pleasant, chronically ill, oriented 3 Regular rate rhythm, clear to auscultation bilaterally but diminished in the bases No edema nl range of motion Laboratory Tests 10/02/17 00:30 10/02/17 03:20 Assessment: Acute non-ST elevation DE with elevated troponin status post 2 stents placed uncomplicated Hypotensive episode following stent placement likely due to beta blockade administration responded to IV fluids Current smoker Presenting COPD Chronic neuropathic leg pain Diabetes mellitus Plan: Monitor blood pressure Home meds COPD treatment Smoking cessation Labs Laboratory Tests 10/01/17 03:10 10/02/17 00:30 10/02/17 03:20 EZEKIEL CHOUDHARY DO Oct 02, 2017 12:04
--- NOTE | 2017-10-02 12:20 | Physical Therapy Progress Note ---
Therapy Progress Note Attempted PT treatment however patient refused therapy secondary to sleeping and not wanting to get up. Will reattempt on Wednesday. CHENTE CRAWFORD PT Oct 02, 2017 12:20
--- NOTE | 2017-10-02 12:45 | Progress Note-Cardiology ---
Cardiology SOAP Progress Note Subjective: No cp or palp or syncope. Mild to mod discomfort at site of cath in the R groin. No abd discomfort. No shortness of breath at rest. Chronic headaches and feet discomfort. Chronic bilateral leg weakness Objective: I&O/Vital Signs Vital Sign - Last 12Hours 10/02/17 10/02/17 10/02/17 10/02/17 01:00 01:00 02:00 03:00 Pulse 68 B/P (MAP) 77/39 (52) 81/47 (58) 88/51 (63) O2 Delivery Room Air Room Air Room Air 10/02/17 10/02/17 10/02/17 10/02/17 04:00 04:00 05:00 06:00 Pulse 61 61 64 Resp 17 19 21 B/P (MAP) 99/53 (68) 92/57 (69) 109/63 (78) Pulse Ox 96 96 98 O2 Delivery Room Air Room Air Room Air Room Air 10/02/17 10/02/17 10/02/17 10/02/17 07:00 07:00 08:00 08:59 Pulse 71 66 64 Resp 13 21 B/P (MAP) 108/61 (77) 120/69 (86) Pulse Ox 97 97 96 O2 Delivery Room Air Room Air Room Air 10/02/17 10/02/17 10/02/17 10/02/17 08:59 09:00 09:12 12:07 Temp 97.1 Pulse 72 Resp 26 B/P (MAP) 154/94 (114) Pulse Ox 95 O2 Delivery Room Air Room Air Room Air Room Air 10/02/17 12:07 Temp 97.3 B/P (MAP) O2 Delivery Room Air Intake and Output 10/02/17 00:00 Intake Total 700 ml Balance 700 ml Weight (Pounds): 136 Weight (Ounces): 0.0 Weight (Calculated Kilograms): 61.485105 Device Insertion Site: without hematoma Swelling: mild amount of swelling Bruising: mild bruising Constitutional: AAO x 3, well-developed, other (thin appearing) Respiratory: No accessory muscle use, other (fair bilat air entry; prolonged exp phase) Cardiovascular: regular rate-rhythm, S1 and S2, systolic murmur (faint LELA at card base) Gastrointestional: tender (epigastric tenderness to palpation), soft, No guarding, No rebound Extremities: No clubbing, No cyanosis, No significant edema Neurologic/Psychiatric: oriented x 3, grossly intact, power is 5/5 both on sides Skin: No rash on exposed areas, No ulcerations on exposed areas Results/Procedures: Labs Laboratory Tests 10/01/17 18:29: Glucometer 316H 10/02/17 00:30: White Blood Count 9.3, Red Blood Count 3.81L, Hemoglobin 12.4, Hematocrit 36, Mean Corpuscular Volume 93, Mean Corpuscular Hemoglobin 33, Mean Corpuscular Hemoglobin Concent 35, Red Cell Distribution Width 13.4, Platelet Count 238, Mean Platelet Volume 9.6, Neutrophils (%) (Auto) 64, Lymphocytes (%) (Auto) 24, Monocytes (%) (Auto) 10, Eosinophils (%) (Auto) 1, Basophils (%) (Auto) 0, Neutrophils # (Auto) 5.9, Lymphocytes # (Auto) 2.3, Monocytes # (Auto) 1.0, Eosinophils # (Auto) 0.1, Basophils # (Auto) 0.0 10/02/17 03:20: White Blood Count 8.6, Red Blood Count 3.62L, Hemoglobin 11.7, Hematocrit 34L, Mean Corpuscular Volume 93, Mean Corpuscular Hemoglobin 32, Mean Corpuscular Hemoglobin Concent 35, Red Cell Distribution Width 13.3, Platelet Count 224, Mean Platelet Volume 9.6, Neutrophils (%) (Auto) 57, Lymphocytes (%) (Auto) 32, Monocytes (%) (Auto) 9, Eosinophils (%) (Auto) 2, Basophils (%) (Auto) 0, Neutrophils # (Auto) 4.9, Lymphocytes # (Auto) 2.8, Monocytes # (Auto) 0.8, Eosinophils # (Auto) 0.1, Basophils # (Auto) 0.0, Sodium Level 135, Potassium Level 4.2, Chloride Level 105, Carbon Dioxide Level 24, Anion Gap 6, Blood Urea Nitrogen 8, Creatinine 0.89, Estimat Glomerular Filtration Rate > 60, BUN/ Creatinine Ratio 9, Glucose Level 102, Calcium Level 7.8L, Phosphorus Level 4.2 , Magnesium Level 2.3 10/02/17 11:59: Glucometer 232H Laboratory Tests 10/01/17 03:10 10/02/17 00:30 10/02/17 03:20 A/P: Assessment: Ac NSTEMI on 09/30/17 due to occlusion of SVG to RI, treated with PCI (see below) Last card cath and cor intervention of 09/30/17: CAD consisting of severe proximal disease of the LAD, proximal occlusion of the RI, moderately severe long stenosis in the proximal portion of LCX, patent stents in prox and distal RCA (Taxus 3 mm stents) and moderately severe stenosis in a small caliber PDA from RCA; Occlusion of the SVG to RI treated successfully with deployment of Mini Vision 2.0 x 12 mm stent at the site of insertion of the graft into the RI and placement of Alpine Xience 3.0 x 38 mm stent in the proximal and mid portions of the graft; Patent, albeit small caliber, HUFF to the LAD; Normal LVEDP; Diaphragmatic akinesis of the left ventricle; LVEF approx 50%. Chronic tobacco use Probable COPD Chronically low blood pressure that does not allow treatment with TAM- inhibitors or ARBs. She has been able to tolerate only a very small dose of beta -blockers and sometimes has difficulty even with gemma DM II, insulin requiring Chronic bilateral leg weakness and headaches and feet discomfort. CT of head and cervical spine on 10/01/17: Chronic changes. No acute intracranial process is detected. Cervical spondylosis. No acute bony abnormality is detected. Plan: * Complex management due to multiple comorbidities * We are trying to titrate meds to an acceptable bp * Low bp last night necessitated overnight stay in the ICU, but bp has been stable and there is no evidence of bleed * Advised to quit smoking * Advised med compliance * Consulted the Med Svce (Dr Coto) to evaluate and treat patient's headache, leg weakness, and feet discomfort Clinical Quality Measures AMI/AHF: ASA po Prior to arrival: DORA Johnson MD FACP FAC CCDS Oct 02, 2017 12:45
[2017-10-02] MEDS ORDERED: ENOXAPARIN 30 MG/0.3 ML (LOVENOX) SYR ONE (12:48)
[2017-10-02] MEDS: CARVEDILOL 3.125 MG (COREG) TABLET PO SCH ×2 (12:50→20:19)
[2017-10-02] MEDS: ACETAMINOPHEN 325 MG TABLET/CAPLET (TYLENOL) PO PRN (12:50)
[2017-10-02] MEDS: ENOXAPARIN 30 MG/0.3 ML (LOVENOX) SYR SC SCH (12:52)
[2017-10-02] MEDS: inSUlin DETERMIR 1 UNIT/0.01 ML (LEVEMIR) CHARGE PER UNIT SQ SCH (18:00)
[2017-10-02] MEDS: ATORVASTATIN 80 MG (LIPITOR) TABLET PO SCH (20:19)
[2017-10-02] MEDS: GABAPENTIN 300 MG (NEURONTIN) CAP PO SCH (20:19)
[2017-10-03] VITALS: BP 98/55
[2017-10-03 04:00] VITALS: BP 130/55
[2017-10-03] MEDS: inSUlin ASPART (NovoLOG) 1 UNIT/0.01 ML (CHARGE PER UNIT) SC SCH ×4 (06:13→20:58)
[2017-10-03 08:00] VITALS: BP 97/52
[2017-10-03] MEDS: ASPIRIN 81 MG CHEW (CHILDREN'S ASA) PO SCH (09:22)
[2017-10-03] MEDS: CARVEDILOL 3.125 MG (COREG) TABLET PO SCH ×2 (09:22→19:47)
[2017-10-03] MEDS: CLOPIDOGREL 75 MG (PLAVIX) TABLET PO SCH (09:23)
[2017-10-03] MEDS: ACETAMINOPHEN 325 MG TABLET/CAPLET (TYLENOL) PO PRN ×2 (09:23→14:52)
--- NOTE | 2017-10-03 11:43 | Progress Note-Standard ---
Standard Progress Note Progress Notes/Assess & Plan Date Seen 10/03/17 Time Seen by Provider: 11:00 Assess & Plan/Chief Complaint Patient is doing much better Had 2 stents placed due to acute non-ST elevation VT Doing well otherwise except for her chronic neuropathic pain in her legs and a chronic DANIELLE Smoking cessation discussed No fever, vital signs stable presently, pleasant, chronically ill, oriented 3 Regular rate rhythm, clear to auscultation bilaterally but diminished in the bases No edema nl range of motion Assessment: Acute non-ST elevation VT with elevated troponin status post 2 stents placed uncomplicated Hypotensive episode following stent placement likely due to beta blockade administration responded to IV fluids Current smoker Presenting COPD Chronic neuropathic leg pain Diabetes mellitus Plan: Monitor blood pressure Home meds COPD treatment Smoking cessation Labs Laboratory Tests 10/02/17 00:30 10/02/17 03:20 EZEKIEL CHOUDHARY DO Oct 03, 2017 11:43
[2017-10-03 12:00] VITALS: BP 96/51
[2017-10-03] MEDS: ENOXAPARIN 30 MG/0.3 ML (LOVENOX) SYR SC SCH (12:20)
[2017-10-03 15:35] VITALS: BP 96/46
--- NOTE | 2017-10-03 17:31 | Progress Note-Cardiology ---
Cardiology SOAP Progress Note Subjective: No cp or palp or syncope or shortness of breath Chronic leg weakness and bilateral foot discomfort as before Objective: I&O/Vital Signs Vital Sign - Last 12Hours 10/03/17 10/03/17 10/03/17 10/03/17 07:00 08:00 12:00 13:00 Temp 97.8 97.0 Pulse 75 73 67 72 Resp 16 16 B/P (MAP) 97/52 (67) 96/51 (66) Pulse Ox 96 98 O2 Delivery Room Air Room Air 10/03/17 15:35 Temp 97.4 Pulse 61 Resp 16 B/P (MAP) 96/46 (63) Pulse Ox 98 O2 Delivery Room Air Intake and Output 10/03/17 00:00 Intake Total 1250 ml Output Total 500 ml Balance 750 ml Weight (Pounds): 138 Weight (Ounces): 5.0 Weight (Calculated Kilograms): 62.976124 Device Insertion Site: without hematoma Swelling: mild amount of swelling Bruising: mild bruising Constitutional: AAO x 3, well-developed, other (thin appearing) Respiratory: No accessory muscle use, other (fair bilat air entry; prolonged exp phase) Cardiovascular: regular rate-rhythm, S1 and S2, systolic murmur (faint LELA at card base) Gastrointestional: tender (epigastric tenderness to palpation), soft, No guarding, No rebound Extremities: No clubbing, No cyanosis, No significant edema Neurologic/Psychiatric: oriented x 3, grossly intact, power is 5/5 both on sides Skin: No rash on exposed areas, No ulcerations on exposed areas Results/Procedures: Labs Laboratory Tests 10/02/17 20:27: Glucometer 250H 10/03/17 05:38: Glucometer 74 10/03/17 10:07: Glucometer 184H 10/03/17 14:33: Glucometer 222H Laboratory Tests 10/02/17 00:30 10/02/17 03:20 A/P: Assessment: Ac NSTEMI on 09/30/17 due to occlusion of SVG to RI, treated with PCI (see below) Last card cath and cor intervention of 09/30/17: CAD consisting of severe proximal disease of the LAD, proximal occlusion of the RI, moderately severe long stenosis in the proximal portion of LCX, patent stents in prox and distal RCA (Taxus 3 mm stents) and moderately severe stenosis in a small caliber PDA from RCA; Occlusion of the SVG to RI treated successfully with deployment of Mini Vision 2.0 x 12 mm stent at the site of insertion of the graft into the RI and placement of Alpine Xience 3.0 x 38 mm stent in the proximal and mid portions of the graft; Patent, albeit small caliber, HUFF to the LAD; Normal LVEDP; Diaphragmatic akinesis of the left ventricle; LVEF approx 50%. Chronic tobacco use Probable COPD Chronically low blood pressure that does not allow treatment with TAM- inhibitors or ARBs. 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 CT of head and cervical spine on 10/01/17: Chronic changes. No acute intracranial process is detected. Cervical spondylosis. No acute bony abnormality is detected. Plan: * Complex management due to multiple comorbidities * Continue current regimen * Advised to quit smoking * Advised med compliance * Reviewed Med Svce notes * Anticipate d/c tomorrow Clinical Quality Measures AMI/AHF: ASA po Prior to arrival: DORA Johnson MD FACP FAC CCDS Oct 03, 2017 17:31
[2017-10-03] MEDS: inSUlin DETERMIR 1 UNIT/0.01 ML (LEVEMIR) CHARGE PER UNIT SQ SCH (18:18)
[2017-10-03] MEDS: GABAPENTIN 300 MG (NEURONTIN) CAP PO SCH (19:42)
[2017-10-03] MEDS: ATORVASTATIN 80 MG (LIPITOR) TABLET PO SCH (19:42)
[2017-10-03 19:50] VITALS: BP 93/43
[2017-10-04] VITALS: BP 113/52
[2017-10-04 05:00] VITALS: BP 93/51
[2017-10-04] MEDS: inSUlin ASPART (NovoLOG) 1 UNIT/0.01 ML (CHARGE PER UNIT) SC SCH ×2 (05:52→11:39)
[2017-10-04 08:00] VITALS: BP 102/56
--- NOTE | 2017-10-04 08:36 | Progress Note (SOAP) ---
Subjective Time Seen by Provider: 08:35 Subjective/Events-last exam patient voices no complaints. Patient has no chest pains. Patient getting around better. Patient not able to states she will not smoke anymore Objective Exam Vital Signs Date Time Temp Pulse Resp B/P (MAP) Pulse Ox O2 Delivery O2 Flow Rate FiO2 10/04/17 05:00 97.6 78 19 93/51 (65) 97 Room Air 10/04/17 01:00 83 10/04/17 00:00 97.0 93 18 113/52 (72) 96 Room Air 10/03/17 19:50 97.4 73 16 93/43 (60) 97 Room Air 10/03/17 19:46 Room Air 10/03/17 19:00 72 10/03/17 15:35 97.4 61 16 96/46 (63) 98 Room Air 10/03/17 13:00 72 10/03/17 12:00 97.0 67 16 96/51 (66) 98 Room Air I & O 10/04/17 07:00 Intake Total 2940 ml Balance 2940 ml Capillary Refill : Less Than 3 Seconds General Appearance: No Apparent Distress, Thin HEENT: Normal ENT Inspection Neck: Full Range of Motion Respiratory: No Accessory Muscle Use, No Respiratory Distress, Decreased Breath Sounds Cardiovascular: Regular Rate, Rhythm, No Murmur Gastrointestinal: non tender, soft Results Lab Laboratory Tests 10/03/17 10:07: Glucometer 184H 10/03/17 14:33: Glucometer 222H 10/03/17 20:53: Glucometer 263H 10/04/17 05:05: Glucometer 90 Assessment/Plan Assessment/Plan Assess & Plan/Chief Complaint Acute NSTE ID. Coronary artery disease. CABG 2016. Diabetes. Tobacco usage. COPD. History of hypertension. Diabetes. Hyperlipidemia. . . Acute NST ID. Coronary artery disease. Diabetes. Tobacco usage. COPD. Diabetes. Hyperlipidemia Clinical Quality Measures AMI/AHF: ASA po Prior to arrival: No DVT/VTE Risk/Contraindication: Risk Factor Score Per Nursin RFS Level Per Nursing on Admit: 4+=Very High Contraindications-Pharm: Other *list below* MERRICK SIEGEL DO Oct 04, 2017 08:36
[2017-10-04] MEDS: ASPIRIN 81 MG CHEW (CHILDREN'S ASA) PO SCH (08:44)
[2017-10-04] MEDS: CLOPIDOGREL 75 MG (PLAVIX) TABLET PO SCH (08:44)
[2017-10-04] MEDS: CARVEDILOL 3.125 MG (COREG) TABLET PO SCH (08:46)
[2017-10-04] MEDS ORDERED: CLOP75TA28 PO (10:13)
--- NOTE | 2017-10-04 10:14 | Discharge Inst-Cardiology ---
Discharge Inst-Cardiac Discharge Medications New Medications: Clopidogrel Bisulfate (Clopidogrel) 75 Mg Tablet 75 MG PO DAILY, #30 TAB 5 Refills Continued Medications: Aspirin (Aspirin EC) 81 Mg Tablet.dr 81 MG PO HS, TAB Atorvastatin Calcium (Atorvastatin Calcium) 80 Mg Tablet 80 MG PO HS, TAB Bismuth Subsalicylate (Pepto-Bismol) 262 Mg/15 Ml Oral.susp PO UD PRN for STOMACH UPSET, ML Carvedilol (Carvedilol) 3.125 Mg Tablet 3.125 MG PO BID, TAB Citalopram Hydrobromide (Citalopram HBr) 10 Mg Tablet 10 MG PO DAILY, TAB Gabapentin (Gabapentin) 300 Mg Capsule 300 MG PO HS, CAP Guaifenesin/Dextromethorphan (Guaifenesin Dm Syrup) 5 Ml Syrup 10 ML PO Q4H PRN for COUGH, ML Insulin Glargine,Hum.rec.anlog (Lantus) 100 Unit/1 Ml Vial 21 UNIT SQ 1800, VIAL Tramadol HCl (Tramadol HCl) 50 Mg Tablet 50 MG PO TID PRN for PAIN-MODERATE, TAB Discontinued Medications: Cephalexin (Cephalexin) 500 Mg Capsule 500 MG PO TID for 7 Days, CAP 7 DAY THERAPY FILLED 09-22-17 (PATIENT THINKS SHE HAS 4 CAPSULES LEFT) Clopidogrel Bisulfate (Clopidogrel) 75 Mg Tablet 75 MG PO 1200, TAB New, Converted or Re-Newed RX: Transmitted to Pharmacy Patient Instructions Patient Instructions: Please schedule follow up appt to see Dr. Zavala next week JERARDO SCHWARTZ Oct 04, 2017 10:14
--- NOTE | 2017-10-04 10:17 | Progress Note-Cardiology ---
Cardiology SOAP Progress Note Subjective: Sitting up in bed and wants to go home today. No c/o CP, palpitations, dyspnea , syncope or near syncope. No c/o groin pain. Objective: I&O/Vital Signs Vital Sign - Last 12Hours 10/04/17 10/04/17 10/04/17 10/04/17 05:00 07:00 08:00 12:00 Temp 97.6 97.4 97.4 Pulse 78 78 72 72 Resp 18 B/P (MAP) 93/51 (65) 102/56 (71) 111/56 (74) Pulse Ox 97 96 95 O2 Delivery Room Air Room Air Room Air Intake and Output 10/04/17 00:00 Intake Total 2640 ml Balance 2640 ml Weight (Pounds): 135 Weight (Ounces): 6.2 Weight (Calculated Kilograms): [id number] Device Insertion Site: without hematoma Swelling: mild amount of swelling Bruising: mild bruising Constitutional: AAO x 3, well-developed, other (thin appearing) Respiratory: No accessory muscle use, other (fair bilat air entry; prolonged exp phase) Cardiovascular: regular rate-rhythm, S1 and S2, systolic murmur (faint LELA at card base) Gastrointestional: soft, No guarding, No rebound, audible bowel sounds Extremities: No clubbing, No cyanosis, No significant edema Neurologic/Psychiatric: oriented x 3, grossly intact, power is 5/5 both on sides Skin: No rash on exposed areas, No ulcerations on exposed areas Results/Procedures: Labs Laboratory Tests 10/03/17 14:33: Glucometer 222H 10/03/17 20:53: Glucometer 263H 10/04/17 05:05: Glucometer 90 10/04/17 11:03: Glucometer 232H A/P: Assessment: Ac NSTEMI on 09/30/17 due to occlusion of SVG to RI, treated with PCI (see below) Last card cath and cor intervention of 09/30/17: CAD consisting of severe proximal disease of the LAD, proximal occlusion of the RI, moderately severe long stenosis in the proximal portion of LCX, patent stents in prox and distal RCA (Taxus 3 mm stents) and moderately severe stenosis in a small caliber PDA from RCA; Occlusion of the SVG to RI treated successfully with deployment of Mini Vision 2.0 x 12 mm stent at the site of insertion of the graft into the RI and placement of Alpine Xience 3.0 x 38 mm stent in the proximal and mid portions of the graft; Patent, albeit small caliber, HUFF to the LAD; Normal LVEDP; Diaphragmatic akinesis of the left ventricle; LVEF approx 50%. Chronic tobacco use Probable COPD Chronically low blood pressure that does not allow treatment with TAM- inhibitors or ARBs. 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 CT of head and cervical spine on 10/01/17: Chronic changes. No acute intracranial process is detected. Cervical spondylosis. No acute bony abnormality is detected. Plan: * Complex management due to multiple comorbidities * Continue current regimen * Advised to quit smoking * Advised med compliance * Reviewed Med Svce notes * D/C home today * Out pt f/u in a week Physician Assessment Physician Assessment No cp or palp or syncope or shortness of breath. Bilat leg weakness as before Lungs: good bilat air entry Cor: reg Ext: no c/c/e A&R * As documented in our note above that I updated at the time of this writing ( italics) and as noted below * We discussed risk factor mod. We advised immediate and complete smoking cessation * We advised med compliance and outpat f/u Clinical Quality Measures AMI/AHF: ASA po Prior to arrival: No JERARDO SCHWARTZ GRADUATE CIVIL ENGINEER Oct 04, 2017 10:17 DORA HASSAN MD [facility] Oct 04, 2017 13:36
--- NOTE | 2017-10-04 10:57 | Physical Therapy Progress Note ---
Therapy Progress Note Patient adamantly declined PT and reports she is going home. She reports she will use her FWW at home upon return. PT to dismiss patient from services at this time. 1 ref ERASTO MIXON PT Oct 04, 2017 10:57
--- NOTE | 2017-10-04 11:13 | Physical Therapy Daily Note ---
PT Daily Note-Current Transfers Functional [place] Measure 0=Not Assessed/NA 4=Minimal Assistance 1=Total Assistance 5=Supervision or Setup 2=Maximal Assistance 6=Modified [place] 3=Moderate Assistance 7=Complete IndependenceIRFPAI Quality Coding Scale 6 Independent with activity with or without an assistive device 5 Patient requires set up or clean up by helper. Patient completes activity by themselves 4 Supervision or touching assist (CGA). [place] provide cues , steadying assist 3 The helper provides less than half the effort to complete the activity 2 The helper provides more than half the effort to complete the activity 1 Dependent. The helper does all the effort to complete an activity 7 Patient refused to complete or attempt activity 9 The patient did not perform the activity before the current illness or injury 88 Not attempted due to Medical conditions or safety concerns Weight Bearing Right Lower Extremity: Right Full Weight Bearing Left Lower Extremity: Left Full Weight Bearing PT Short Term Goals Short Term Goals Time Frame: Oct 08, 2017 Gait (FIM): 6 Gait Level of Assist: 6 Gait Assistive Device: FWW PT Plan Treatment/Plan Treatment Plan: Discontinue PT Treatment Plan: Education, Functional Activity Karen, Functional Strength, Gait , Safety, Therapeutic Exercise, Transfers Treatment Duration: Oct 08, 2017 Frequency: 6 times per week Estimated Hrs Per Day: .25 hour per day Patient and/or Family Agrees t: Yes Time/GCodes Time In: 1112 Time Out: 1112 Total Billed Treatment Time: 0 Total Billed Treatment DC G Codes Necessary: Yes PT/OT Therapy GCodes Therapy Functional Limitation: Physical Therapy Test(s)/Tool used to determine: FIM, Level of Assistance Scale Functional Limitation-Current Charge Code: MOBCUR Modifier: CK Functional Limitation-Goal Charge Code: MOBGOAL Modifier: CI Functional Limitation-D/C Charge Codes: MOBDC Modifier: CK ERASTO MIXON PT Oct 04, 2017 11:13
[2017-10-04] MEDS: ENOXAPARIN 30 MG/0.3 ML (LOVENOX) SYR SC SCH (11:39)
[2017-10-04 12:00] VITALS: BP 111/56
--- NOTE | 2017-10-04 13:38 | Cardiology Discharge Summary ---
Diagnosis/Chief Complaint Date of Admission 09/30/17 Date of Discharge 10/04/17 Final/Discharge Diagnosis Ac NSTEMI on 09/30/17 due to occlusion of SVG to RI, treated with PCI (see below) Last card cath and cor intervention of 09/30/17: CAD consisting of severe proximal disease of the LAD, proximal occlusion of the RI, moderately severe long stenosis in the proximal portion of LCX, patent stents in prox and distal RCA (Taxus 3 mm stents) and moderately severe stenosis in a small caliber PDA from RCA; Occlusion of the SVG to RI treated successfully with deployment of Mini Vision 2.0 x 12 mm stent at the site of insertion of the graft into the RI and placement of Alpine Xience 3.0 x 38 mm stent in the proximal and mid portions of the graft; Patent, albeit small caliber, HUFF to the LAD; Normal LVEDP; Diaphragmatic akinesis of the left ventricle; LVEF approx 50%. Chronic tobacco use Probable COPD Chronically low blood pressure that does not allow treatment with TAM- inhibitors or ARBs. 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 CT of head and cervical spine on 10/01/17: Chronic changes. No acute intracranial process is detected. Cervical spondylosis. No acute bony abnormality is detected. Chief Complaint/HPI Chief Complaint/HPI CC: Chest pain HPI: 76 yo woman with epigastric pain and nausea that swtarte approx 6-7 hours ago. Pain mod to severe, improved with narcotic analgesics (but not s/l NTG), not experience before, has waxed and waned but not resolved. No aggravating factor. Has chronic exertional shortness of breath. Denies palp or syncope. Denies ankle swelling Please refer to the progress note of this date (10/04/17) for condition at d/c Discharge Summary Hospital Course Pending Labs Laboratory Tests 10/04/17 11:03: Glucometer 232 Discussion & Recommendations Home Medications Reviewed patient Home Medication Reconciliation performed by pharmacy medication reconciliations senior manufacturing technician and/or nursing. Patients Allergies have been reviewed. Discharge Home Medications: Reviewed and agree with Discharge Medication list on patient's Discharge Instruction sheet Clinical Quality Measures AMI/AHF: ASA po Prior to arrival: No DVT/VTE Risk/Contraindication: Risk Factor Score Per Nursin RFS Level Per Nursing on Admit: 4+=Very High Contraindications-Pharm: Other *list below* DORA HASSAN MD FACP FAC [facility] Oct 04, 2017 13:38
[2017-10-04 14:30] VITALS: BP 111/56
--- NOTE | 2017-10-04 15:15 | Occ Therapy Progress Note ---
Therapy Progress Note Pt being discharged today and was not seen by OT. G codes for 330-18 (last day seen by OT) Based on FIM scores Self JAIME BROWN OT Oct 04, 2017 15:15
== END 2017-10-04 14:50 | disposition home or self-care (01) | DRG 229 ==
LOC: EDUNIT# 11:58 → ER 11:59 → ICU 18:07 → CATH 18:07 → ICU 19:40 → CATH 19:40 → 4TH 10-01 15:31 → UNDOFXSDCSVC 10-01 15:31 → 4TH 10-01 15:31 → ICU 10-01 15:31 → UNDOFXSDCSVC 10-02 00:10 → 4TH 10-02 00:10 → ICU 10-02 00:10 → UNDOFXSDCSVC 10-02 15:30 → 4TH 10-02 15:30 → ICU 10-02 15:30 → 4TH 10-02 15:30 → CATH 10-04 14:50
PROVIDERS: ADMIT Internal Medicine Cardiovascular Disease; ATTEND Internal Medicine Cardiovascular Disease
PROC: 037 Upper Arteries, Dilation (ICD-10-PCS; principal; 2017-09-30)
PROC: 02703DZ Dilation of Coronary Artery, One Artery with Intraluminal Device, Percutaneous Approach (ICD-10-PCS; 2017-09-30)
PROC: 4A023N7 Measurement of Cardiac Sampling and Pressure, Left Heart, Percutaneous Approach (ICD-10-PCS; 2017-09-30)
PROC: B2151ZZ Fluoroscopy of Left Heart using Low Osmolar Contrast (ICD-10-PCS; 2017-09-30)
PROC: B2111ZZ Fluoroscopy of Multiple Coronary Arteries using Low Osmolar Contrast (ICD-10-PCS; 2017-09-30)
PROC: B2181ZZ Fluoroscopy of Left Internal Mammary Bypass Graft using Low Osmolar Contrast (ICD-10-PCS; 2017-09-30)
PROC: 02W Heart and Great Vessels, Revision (ICD-10-PCS; 2017-09-30)
DX: I21.4 Non-ST elevation (NSTEMI) myocardial infarction (principal); I25.810 Atherosclerosis of coronary artery bypass graft(s) without angina pectoris; I25.10 Atherosclerotic heart disease of native coronary artery without angina pectoris; I44.0 Atrioventricular block, first degree; F17.210 Nicotine dependence, cigarettes, uncomplicated; E78.5 Hyperlipidemia, unspecified; E11.42 Type 2 diabetes mellitus with diabetic polyneuropathy; J44.9 Chronic obstructive pulmonary disease, unspecified; R29.898 Other symptoms and signs involving the musculoskeletal system; I95.2 Hypotension due to drugs; T44.7X5A Adverse effect of beta-adrenoreceptor antagonists, initial encounter; G40.909 Epilepsy, unspecified, not intractable, without status epilepticus; K21.9 Gastro-esophageal reflux disease without esophagitis; M81.0 Age-related osteoporosis without current pathological fracture; F41.9 Anxiety disorder, unspecified; F32.9 Major depressive disorder, single episode, unspecified; R51 Headache; M47.892 Other spondylosis, cervical region; I25.2 Old myocardial infarction; Z79.4 Long term (current) use of insulin; Z95.0 Presence of cardiac pacemaker; Z95.5 Presence of coronary angioplasty implant and graft
CPT/HCPCS: 36415; 70450; 71045; 71275; 72125; 72128; 72131; 74177; 76705; 80048; 80053; 80061; 81000; 82962; 83690; 83735; 83874; 84100; 84484; 85025; 85027; 85610; 85730; 86850; 86900; 86901; 86920; 93005; 93041; 93459; 96361; 96374; 96375; 96376

== ENCOUNTER 2017-10-15 23:03 | Inpatient (IN) | payer MEDICARE ==
[~2017-10-15] VITALS: Ht 170.2 cm; Wt 60.4 kg
[~2017-10-15 23:03] MED LIST changes: +ASPI-983 PO; +BISM262O27 PO; +CARV3.122 PO; +CEPH500C PO; +CITA10TA7 PO; -FENO145T20 PO; +FENO145T37 PO; +GUAI5SYR PO; +TRAM50TA2 PO
[2017-10-15] MEDS ORDERED: ASPIRIN 81 MG CHEW (CHILDREN'S ASA) PO ONE (23:15)
[2017-10-15 23:30] LABS: BASOPHILS # (AUTO) 0.1 10^3/uL (0.0-0.1); BASOPHILS % (AUTO) 1 % (0-10); EOSINOPHILS # (AUTO) 0.2 10^3/uL (0.0-0.3); EOSINOPHILS % (AUTO) 2 % (0-10); HEMATOCRIT 43 % (35-52); HEMOGLOBIN 14.7 G/DL (11.5-16.0); LYMPHOCYTES # (AUTO) 2.2 X 10^3 (1.0-4.0); LYMPHOCYTES % (AUTO) 21 % (12-44); MEAN CORPUSCULAR HEMOGLOBIN 31 PG (25-34); MEAN CORPUSCULAR HGB CONC 34 G/DL (32-36); MEAN CORPUSCULAR VOLUME 92 FL (80-99); MEAN PLATELET VOLUME 9.7 FL (7.4-10.4); MONOCYTES # (AUTO) 0.8 X 10^3 (0.0-1.0); MONOCYTES % (AUTO) 7 % (0-12); NEUTROPHILS # (AUTO) 7.3 X 10^3 (1.8-7.8); NEUTROPHILS % (AUTO) 70 % (42-75); PLATELET COUNT 364 10^3/uL (130-400); RED BLOOD COUNT 4.68 10^6/uL (4.35-5.85); RED CELL DISTRIBUTION WIDTH 13.3 % (10.0-14.5); WHITE BLOOD COUNT 10.5 10^3/uL (4.3-11.0)
[2017-10-15 23:36] LABS: INR 0.9 (0.8-1.4); PROTHROMBIN TIME PATIENT 12.5 SEC (12.2-14.7)
[2017-10-15] MEDS ORDERED: NITROGLYCERIN 2% OINT 1 GM UNIT DOSE PACKET TOP ONE (23:45)
[2017-10-15] MEDS ORDERED: KETOROLAC 30 MG/ML VIAL IVP ONE (23:45)
[2017-10-15 23:56] LABS: ALBUMIN 4.1 GM/DL (3.2-4.5); BILIRUBIN,TOTAL 0.3 MG/DL (0.1-1.0); CALCIUM 9.4 MG/DL (8.5-10.1); CREATININE SERUM 1.03 MG/DL (0.60-1.30); MAGNESIUM 2.1 MG/DL (1.8-2.4); TOTAL PROTEIN 7.7 GM/DL (6.4-8.2)
[2017-10-16] VITALS (29 sets, daily range): BP systolic 88–135; BP diastolic 46–84
[2017-10-16] MEDS ORDERED: PANTOPRAZOLE 40 MG/10 ML (PROTONIX) VIAL IV ONE
[2017-10-16] MEDS ORDERED: morphine INJ 10 MG/ML 1ML (SYR OR VIAL) IVP STA (00:23)
[2017-10-16] MEDS ORDERED: ENOXAPARIN 60 MG/0.6 ML (LOVENOX) SYR SC ONE (00:30)
[2017-10-16] MEDS ORDERED: CLOPIDOGREL 300 MG (PLAVIX) TABLET PO ONE ×2 (00:30→12:05)
[2017-10-16] MEDS ORDERED: FUROSEMIDE 40 MG/4 ML INJ (LASIX) IVP ONE (00:30)
--- NOTE | 2017-10-16 00:44 | ED Chest Pain ---
General Chief Complaint: Chest Pain Stated Complaint: CP Nursing Triage Note: c/o sternal chest pain starting 30 min RUN LEAD. patient denies pain radiating, patient reports n/v, SOA and diaphoresis Nursing Sepsis Screen: No Definite Risk Source: patient, old records History of Present Illness Date Seen by Provider: Oct 15, 2017 Time Seen by Provider: 23:15 Initial Comments PT ARRIVES VIA POV FROM HOME C/O CHEST PAIN --BEGAN JUST PRIOR TO ARRIVAL PAIN IS IN RIGHT MID STERNAL AREA TOOK NTG X 2 WITH MINIMAL, TEMPORARY RELIEF--RATES PAIN 04/13. STATES PAIN HURTS SO BAD SHE FELT LIKE SHE WAS GOING TO PASS OUT FROM THE PAIN STATES IT HURTS TO BREATHE OR TAKE A DEEP BREATH, AND FEELS SHORT OF BREATH HAS HAD SWELLING IN FEET FOR THE LAST COUPLE OF DAYS + SWEATS WHEN PAIN BEGAN NO PALPITATIONS PT HAS HAD MN'S X 2 IN PAST, HAS HAD CABG, AND HAD NSTEMI 09/30/17 WITH STENTS X 2 PLACED, BY DR. HASSAN. PT CONTINUES TO SMOKE AT LEAST 1 PPD PT HAS COPD WELL, DOES NOT HAVE HOME O2. 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 HASSAN Allergies and Home Medications Allergies Coded Allergies: NKANo Known Allergies (Verified Allergy, Unknown, 04/27/13) Home Medications Aspirin 81 Mg Tablet.dr, 81 MG PO HS, (Reported) Atorvastatin Calcium 80 Mg Tablet, 80 MG PO HS, (Reported) Bismuth Subsalicylate 262 Mg/15 Ml Oral.susp, PO UD PRN for STOMACH UPSET, ( Reported) Carvedilol 3.125 Mg Tablet, 3.125 MG PO BID, (Reported) Citalopram Hydrobromide 10 Mg Tablet, 10 MG PO DAILY, (Reported) Clopidogrel Bisulfate 75 Mg Tablet, 75 MG PO DAILY Prescribed by: JERARDO SCHWARTZ on 10/04/17 1013 Gabapentin 300 Mg Capsule, 300 MG PO HS, (Reported) Guaifenesin/Dextromethorphan 5 Ml Syrup, 10 ML PO Q4H PRN for COUGH, (Reported) Insulin Glargine,Hum.rec.anlog 100 Unit/1 Ml Vial, 21 UNIT SQ 1800, (Reported) Tramadol HCl 50 Mg Tablet, 50 MG PO TID PRN for PAIN-MODERATE, (Reported) Patient Home Medication List Home Medication List Reviewed: Yes Review of Systems Constitutional: see HPI, diaphoresis Respiratory: See HPI, Shortness of Air, SOA With Exertion Cardiovascular: See HPI, Chest Pain, Edema; Denies Lightheadedness, Denies Palpitations, Denies Syncope Gastrointestinal: No Symptoms Reported; Denies Abdominal Pain, Denies Nausea, Denies Vomiting Genitourinary: No Symptoms Reported Musculoskeletal: see HPI (FEET SWELLING); No back pain Skin: no symptoms reported Psychiatric/Neurological: No Symptoms Reported Endocrine: No Symptoms Reported Hematologic/Lymphatic: No Symptoms Reported Past Eflnjnu-Iewfhv-Ctiald Hx Patient Social History Alcohol Use: Denies Use Recreational Drug Use: No Smoking Status: Current Everyday Smoker (1 PPD) Type Used: Cigarettes (1 PPD) Recent Foreign Travel: No Contact w/Someone Who Travel: No Recent Infectious Disease Expo: No Recent Hopitalizations: No Immunizations Up To Date Tetanus Booster (TDap): Unknown PED Vaccines UTD: No Date of Pneumonia Vaccine: Jun 02, 2011 Date of Influenza Vaccine: Apr 02, 2017 Seasonal Allergies Seasonal Allergies: No Past Medical History Surgeries: Yes (BILATERALCARPAL TUNNEL; KNEE SURGERY; RIGHT LEG FX/ORIF; LEFT SHOULDER; CARDIAC CATHS--MULTIPLE STENTS; CABG ) Appendectomy, Cardiac, CABG, Section, Coronary Stent, Hysterectomy, Oophorectomy, Orthopedic Respiratory: Yes (NO HOME O2, CONTINUES TO SMOKE 1 PPD) COPD Cardiac: Yes (MULTIPLE CARDIAC CATHS- MULTIPLE STENTS; CABG) Coronary Artery Disease, Heart Attack, High Cholesterol, Irregular Heartbeat Neurological: Yes Neuropathy, Seizure Disorder, TIA Reproductive Disorders: No Female Reproductive Disorders: Denies 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 ) Diabetes, Insulin dep HEENT: Yes Cataract Loss of Vision: Denies Hearing Impairment: Denies Cancer: No Psychosocial: Yes Anxiety, Depression Integumentary: No Blood Disorders: No Adverse Reaction/Blood Tranf: No Family Medical History FH: suicide FH: uterine cancer 19 MOTHER FHx: diabetes mellitus 19 MOTHER No Pertinent Family Hx Physical Exam Vital Signs Vital Signs - First Documented 10/15/17 23:16 Temp 98.2 Pulse 91 Resp 15 B/P (MAP) 136/79 (98) Pulse Ox 99 Capillary Refill : Less Than 3 Seconds General Appearance: No Apparent Distress, Thin, Other (REEKS OF CIGARETTES, AND STRONG ODOR OF OLD URINE) HEENT: PERRL/EOMI Neck: Full Range of Motion, Normal Inspection, Non Tender, Supple; No Carotid Bruit, No JVD Respiratory: Normal Breath Sounds, No Accessory Muscle Use, No Respiratory Distress, Other (DIFFUSE ANTERIOR CHEST WALL TENDERNESS) Cardiovascular: Regular Rate, Rhythm, No JVD, No Murmur, Normal Peripheral Pulses Gastrointestinal: Normal Bowel Sounds, No Organomegaly, No Pulsatile Mass, Non Tender, Soft Extremity: Normal Capillary Refill, Normal Range of Motion, Non Tender, No Calf Tenderness, Pedal Edema (TRACE TO 1+ BILATERALLY) Neurologic/Psychiatric: Alert, Oriented x3, No Motor/Sensory Deficits, 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- XII Norm as Tested Skin: Normal Color, Warm/Dry Progress/Results/Core Measures Lab Results Laboratory Tests Test 10/15/17 23:10 Range/Units White Blood Count 10.5 4.3-11.0 10^3/uL Red Blood Count 4.68 4.35-5.85 10^6/uL Hemoglobin 14.7 11.5-16.0 G/DL Hematocrit 43 35-52 % Mean Corpuscular Volume 92 80-99 FL Mean Corpuscular Hemoglobin 31 25-34 PG Mean Corpuscular Hemoglobin Concent 34 32-36 G/DL Red Cell Distribution Width 13.3 10.0-14.5 % Platelet Count 364 130-400 10^3/uL Mean Platelet Volume 9.7 7.4-10.4 FL Neutrophils (%) (Auto) 70 42-75 % Lymphocytes (%) (Auto) 21 12-44 % Monocytes (%) (Auto) 7 0-12 % Eosinophils (%) (Auto) 2 0-10 % Basophils (%) (Auto) 1 0-10 % Neutrophils # (Auto) 7.3 1.8-7.8 X 10^3 Lymphocytes # (Auto) 2.2 1.0-4.0 X 10^3 Monocytes # (Auto) 0.8 0.0-1.0 X 10^3 Eosinophils # (Auto) 0.2 0.0-0.3 10^3/uL Basophils # (Auto) 0.1 0.0-0.1 10^3/uL Prothrombin Time 12.5 12.2-14.7 SEC INR Comment 0.9 0.8-1.4 Activated Partial Thromboplast Time 24 24-35 SEC Sodium Level 132 L 135-145 MMOL/L Potassium Level 4.0 3.6-5.0 MMOL/L Chloride Level 97 L 98-107 MMOL/L Carbon Dioxide Level 24 21-32 MMOL/L Anion Gap 11 5-14 MMOL/L Blood Urea Nitrogen 7 7-18 MG/DL Creatinine 1.03 0.60-1.30 MG/DL Estimat Glomerular Filtration Rate 52 BUN/Creatinine Ratio 7 Glucose Level 266 H 70-105 MG/DL Calcium Level 9.4 8.5-10.1 MG/DL Magnesium Level 2.1 1.8-2.4 MG/DL Total Bilirubin 0.3 0.1-1.0 MG/DL Aspartate Amino Transf (AST/SGOT) 12 5-34 U/L Alanine Aminotransferase (ALT/SGPT) 9 0-55 U/L Alkaline Phosphatase 79 40-136 U/L Total Creatine Kinase 88 29-168 U/L Creatine Kinase MB 3.0 <6.6 NG/ML Troponin I 0.36 *H <0.30 NG/ML B-Type Natriuretic Peptide 814.3 H <100.0 PG/ML Total Protein 7.7 6.4-8.2 GM/DL Albumin 4.1 3.2-4.5 GM/DL Amylase Level 46 25-125 U/L Lipase 44 8-78 U/L My Orders Orders - TATUM CESPEDES DO Amylase (10/15/17 23:15) Cbc With Automated Diff (10/15/17 23:15) Comprehensive Metabolic Panel (10/15/17 23:15) Creatine Kinase (10/15/17 23:15) Creatine Kinase Mb (10/15/17 23:15) Lipase (10/15/17 23:15) Partial Thromboplastin Time (10/15/17 23:15) Protime With Inr (10/15/17 23:15) Troponin I (10/15/17 23:15) Chest 1 View, Ap/Pa Only (10/15/17 23:15) O2 (10/15/17 23:15) Ekg Tracing (10/15/17 23:15) Aspirin Chewable Tablet (Baby Aspirin Ch (10/15/17 23:15) BNP (10/15/17 23:15) Monitor-Rhythm Ecg Trace Only (10/15/17 23:15) Magnesium (10/15/17 23:15) Nitroglycerin Ointment (Nitrobid Ointme (10/15/17 23:45) Ketorolac Injection (Toradol Injection) (10/15/17 23:45) Pantoprazole Injection (Protonix Injecti (10/16/17 00:00) Medications Given in ED Current Medications Medications Dose Ordered Sig/Roman Route Start Time Stop Time Status Last Admin Dose Admin Aspirin 324 mg ONCE ONCE PO 10/15/17 23:15 10/15/17 23:17 DC 10/15/17 23:20 324 MG Ketorolac Tromethamine 30 mg ONCE ONCE IVP 10/15/17 23:45 10/15/17 23:46 DC 10/16/17 00:00 30 MG Nitroglycerin 1 inch ONCE ONCE TOP 10/15/17 23:45 10/15/17 23:46 DC 10/16/17 00:00 1 INCH Vital Signs/I&O 10/15/17 23:16 Temp 98.2 Pulse 91 Resp 15 B/P (MAP) 136/79 (98) Pulse Ox 99 Blood Pressure Mean: 98 Progress Note : Progress Note MINIMAL RELIEF WITH NTG--PAIN DOWN TO 8/10 GIVEN MORPHINE--PAIN BEGINNING TO EASE NO DETERIORATION IN PT'S CONDITION DURING ER STAY Initial ECG Impression Date: Oct 16, 2017 Initial ECG Impression Time: 23:00 Initial ECG Rate: 93 Initial ECG Rhythm: Normal Sinus Initial ECG Comparisson: Unchanged Comments CXR--NO ACUTE PROCESS, PENDING RADIOLOGIST REVIEW Reviewed: Reviewed by [facility] Departure Communication (Admissions) 1727/0020--PAGED/SPOKE WITH DR. HASSAN. ACCEPTS PT FOR ADMIT. ORDERS NOTED. WILL TEXT COPY OF EKG TO HIM DR. HASSAN CALLED BACK AFTER RECEIVING TEXT OF EKG. NO CHANGE IN TREATMENT. WILL PLAN ON TAKING TO PHARMACEUTICAL SALES IN AM. Impression Primary Impression: Acute non-ST elevation myocardial infarction (NSTEMI) Additional Impressions: Insulin dependent diabetes mellitus COPD (chronic obstructive pulmonary disease) Smoker unmotivated to quit Non-compliance Elevated brain natriuretic peptide (BNP) level MILD CHF Disposition: ADMITTED INPATIENT Condition: Improved Admissions Decision to Admit Reason: Admit from ER (General) Decision to Admit/Date: Oct 16, 2017 Time/Decision to Admit Time: 00:20 Departure-Patient Inst. Referrals: MERRICK SIEGEL DO (PCP/Family) Primary Care Physician TATUM CESPEDES DO Oct 16, 2017 00:44
[2017-10-16] MEDS ORDERED: morphine INJ 4 MG/ML 1 ML (VIAL/SYRINGE) ONE (02:22)
[2017-10-16] MEDS: morphine INJ 4 MG/ML 1 ML (VIAL/SYRINGE) IVP PRN ×2 (02:30→08:25)
[2017-10-16] MEDS ORDERED: CATHETER FLUSH 10 ML SYR IV PRN (04:00)
[2017-10-16 05:22] LABS: BASOPHILS % (AUTO) 0 % (0-10); EOSINOPHILS # (AUTO) 0.1 10^3/uL (0.0-0.3); EOSINOPHILS % (AUTO) 1 % (0-10); HEMATOCRIT 36 % (35-52); HEMOGLOBIN 12.6 G/DL (11.5-16.0); LYMPHOCYTES # (AUTO) 2.5 X 10^3 (1.0-4.0); LYMPHOCYTES % (AUTO) 27 % (12-44); MEAN CORPUSCULAR HEMOGLOBIN 32 PG (25-34); MEAN CORPUSCULAR HGB CONC 35 G/DL (32-36); MEAN CORPUSCULAR VOLUME 92 FL (80-99); MEAN PLATELET VOLUME 9.2 FL (7.4-10.4); MONOCYTES # (AUTO) 0.7 X 10^3 (0.0-1.0); MONOCYTES % (AUTO) 7 % (0-12); NEUTROPHILS % (AUTO) 64 % (42-75); PLATELET COUNT 321 10^3/uL (130-400); RED BLOOD COUNT 3.94 10^6/uL (4.35-5.85); RED CELL DISTRIBUTION WIDTH 13.4 % (10.0-14.5); WHITE BLOOD COUNT 9.4 10^3/uL (4.3-11.0)
[2017-10-16 05:39] LABS: ALBUMIN 3.3 GM/DL (3.2-4.5); BILIRUBIN,TOTAL 0.2 MG/DL (0.1-1.0); CALCIUM 8.7 MG/DL (8.5-10.1); CREATININE SERUM 0.95 MG/DL (0.60-1.30); PHOSPHORUS 4.3 MG/DL (2.3-4.7); POTASSIUM 4.3 MMOL/L (3.6-5.0); TOTAL PROTEIN 5.9 GM/DL (6.4-8.2)
[2017-10-16 05:49] LABS: CARDIAC PROFILE 2 1.07 NG/ML (<0.30)
[2017-10-16] MEDS: CATHETER FLUSH 10 ML SYR IV SCH ×3 (06:18→20:28)
[2017-10-16] MEDS: inSUlin (REGULAR) HUMAN 1 UNIT/0.01 ML (CHARGE PER UNIT) SC SCH ×4 (06:19→20:24)
--- NOTE | 2017-10-16 06:29 | Diagnostic Imaging Report ---
EXAMINATION: Chest radiograph, portable AP view. DATE: 10/15/2017 at 2326 hours. INDICATION: 77-year-old female, chest pain, congestion, shortness of breath. COMPARISON: October. FINDINGS: There are median sternotomy wires. Stable overall appearance of the cardiomediastinal silhouette. There is no identified pneumothorax. There is no large pleural effusion. There is no identified focal airspace consolidation. IMPRESSION: No identified acute cardiopulmonary abnormality. Dictated by: Dictated on workstation # [id number]
--- NOTE | 2017-10-16 07:28 | Diagnostic Imaging Report ---
EXAMINATION: Chest radiograph, portable AP view. DATE: 10/16/2017 at 0323 hours. INDICATION: 77-year-old female, history of non-ST elevation myocardial infarction. COMPARISON: 10/15/2017. FINDINGS: There are median sternotomy wires. Stable overall appearance of the cardiomediastinal silhouette. There is no identified pneumothorax. There is no large pleural effusion. There is no identified focal airspace consolidation. IMPRESSION: No identified acute cardiopulmonary abnormality. Dictated by: Dictated on workstation # [id number]
[2017-10-16] MEDS: CLOPIDOGREL 75 MG (PLAVIX) TABLET PO SCH (08:14)
[2017-10-16] MEDS ORDERED: ASPIRIN E.C. 325 MG (ECOTRIN) TABLET PO SCH (09:00)
[2017-10-16] MEDS ORDERED: ENOXAPARIN 60 MG/0.6 ML (LOVENOX) SYR SC SCH ×2 (09:00→12:00)
--- NOTE | 2017-10-16 09:49 | Cardiology History & Physical ---
HPI-Cardiology Cardiology H&P Date of Admission 10/16/17 Primary Care Physician Ismael Shultz DO Attending Physician Miguel Angel Zavala MD, MA FACP [facility] Consulting Physician [facility] CC: Chest pain HPI: 77 yo woman with known extensive CAD, recently treated with PCI to RI graft after presentation with NSTEMI in late September 2017. Has had recurrent cp: midsternal, pressure or burning, radiating to L shoulder, mod to mod sev, sometimes associated with mild sweating, no aggravating or relieving factors ( except narcotic analgesics), onset yesterday, episodes lasting minutes to hours. Has continued to smoke cigarettes. She thinks she has been taking all her meds (but isn't sure). Denies palp or syncope. Has chronic exertional shortness of breath. Denies leg swelling. Has chronic bilat leg weakness Review of Systems-Cardiology Review of Systems Constitutional: malaise, tiredness; No weight loss, No weight gain Eyes: No vision change Ears/Nose/Throat: No ear discharge, No nasal drainage, No recent hearing loss Respiratory: As described under HPI Cardiovascular: As described under HPI Gastrointestinal: No constipation, No diarrhea, No nausea, No vomiting Genitourinary: No dysuria, No urine frequency changes Musculoskeletal: back pain (chronic), other (chronic bilat leg weakness) Skin: No rash, No ulcerations Psychiatric/Neurological: No seizure, No focal weakness, No syncope Hematologic: No bleeding abnormalities QUO-Wjvufj-Ojrzpc Hx Patient Social History Alcohol Use: Denies Use Recreational Drug Use: No Smoking Status: Current Everyday Smoker Type Used: Cigarettes Recent Foreign Travel: No Recent Infectious Disease Expo: No Hospitalization with Isolation: Denies Physical Abuse Screen: No Sexual Abuse: No Immunizations Up To Date Tetanus Booster (TDap): Unknown Date of Pneumonia Vaccine: Jun 02, 2011 Date of Influenza Vaccine: Apr 02, 2017 Past Medical History PMH As described under Assessment. Family Medical History Family Medical History: She reports no family h/o CAD, stroke or SCD. Family History: FH: suicide FH: uterine cancer 19 MOTHER FHx: diabetes mellitus 19 MOTHER Allergies and Home Medications Allergies Coded Allergies: NKANo Known Allergies (Verified Allergy, Unknown, 04/27/13) Home Medications Aspirin 81 Mg Tablet.dr, 81 MG PO HS, (Reported) Atorvastatin Calcium 80 Mg Tablet, 80 MG PO HS, (Reported) Bismuth Subsalicylate 262 Mg/15 Ml Oral.susp, PO UD PRN for STOMACH UPSET, ( Reported) Carvedilol 3.125 Mg Tablet, 3.125 MG PO BID, (Reported) Citalopram Hydrobromide 10 Mg Tablet, 10 MG PO DAILY, (Reported) Clopidogrel Bisulfate 75 Mg Tablet, 75 MG PO DAILY Prescribed by: JERARDO SCHWARTZ on 10/04/17 1013 Gabapentin 300 Mg Capsule, 300 MG PO HS, (Reported) Guaifenesin/Dextromethorphan 5 Ml Syrup, 10 ML PO Q4H PRN for COUGH, (Reported) Insulin Glargine,Hum.rec.anlog 100 Unit/1 Ml Vial, 21 UNIT SQ 1800, (Reported) Tramadol HCl 50 Mg Tablet, 50 MG PO TID PRN for PAIN-MODERATE, (Reported) Patient Home Medication List Home Medication List Reviewed: Yes Physical Exam-Cardiology Physical Exam Vital Signs/I&O 10/15/17 10/15/17 10/16/17 10/16/17 23:16 23:16 01:05 01:15 Temp 98.2 Pulse 91 100 Resp 15 22 B/P (MAP) 136/79 (98) 112/80 Pulse Ox 98 99 97 97 O2 Delivery Room Air Room Air 10/16/17 10/16/17 10/16/17 10/16/17 01:16 01:25 01:30 01:45 Temp 97.1 Pulse 91 90 90 85 Resp 16 20 13 B/P (MAP) 115/60 (78) 107/58 (74) 88/54 (65) Pulse Ox 97 96 96 O2 Delivery Room Air Room Air Room Air 10/16/17 10/16/17 10/16/17 10/16/17 02:00 02:15 02:30 03:00 Pulse 84 79 80 76 Resp 15 13 11 17 B/P (MAP) 90/50 (63) 89/47 (61) 98/55 (69) 93/64 (74) Pulse Ox 96 96 97 96 O2 Delivery Room Air Room Air Room Air Room Air 10/16/17 10/16/17 10/16/17 10/16/17 04:00 04:00 04:22 05:00 Temp 97.3 Pulse 70 65 Resp 12 15 B/P (MAP) 91/59 (70) 94/55 (68) Pulse Ox 97 96 96 O2 Delivery Room Air Room Air Room Air 10/16/17 10/16/17 10/16/17 10/16/17 06:00 07:00 08:10 08:27 Temp 97.7 Pulse 62 59 Resp 10 B/P (MAP) 91/48 (62) Pulse Ox 97 97 O2 Delivery Room Air Room Air Room Air Capillary Refill : Less Than 3 Seconds Constitutional: AAO x 3, well-developed, other (thin appearing) HEENT: PERRL, EOMI; No xanthelasmas are seen Neck: carotid pulses are 2 + bilaterally, with good upstrokes Respiratory: No accessory muscle use; other (fair air entry, somewhat prolong exp phase, some scattered wheezes) Cardiovascular: regular rate-rhythm, S1 and S2, systolic murmur (2/6 MSM at card base) Gastrointestinal: No tender; soft; No guarding, No rebound; audible bowel sounds Extremities: No clubbing, No cyanosis, No significant edema Neurologic/Psychiatric: oriented x 3, other (chronic bilat leg weakness, but able to move against gravity), grossly intact Skin: No rash on exposed areas, No ulcerations on exposed areas Data Review Labs Laboratory Tests 10/15/17 23:10: White Blood Count 10.5, Red Blood Count 4.68, Hemoglobin 14.7, Hematocrit 43, Mean Corpuscular Volume 92, Mean Corpuscular Hemoglobin 31, Mean Corpuscular Hemoglobin Concent 34, Red Cell Distribution Width 13.3, Platelet Count 364, Mean Platelet Volume 9.7, Neutrophils (%) (Auto) 70, Lymphocytes (%) (Auto) 21, Monocytes (%) (Auto) 7, Eosinophils (%) (Auto) 2, Basophils (%) (Auto) 1, Neutrophils # (Auto) 7.3, Lymphocytes # (Auto) 2.2, Monocytes # (Auto) 0.8, Eosinophils # (Auto) 0.2, Basophils # (Auto) 0.1, Prothrombin Time 12.5, INR Comment 0.9, Activated Partial Thromboplast Time 24, Sodium Level 132L, Potassium Level 4.0, Chloride Level 97L, Carbon Dioxide Level 24, Anion Gap 11, Blood Urea Nitrogen 7, Creatinine 1.03, Estimat Glomerular Filtration Rate 52, BUN/Creatinine Ratio 7, Glucose Level 266H, Calcium Level 9.4, Magnesium Level 2.1, Total Bilirubin 0.3, Aspartate Amino Transf (AST/SGOT) 12, Alanine Aminotransferase (ALT/SGPT) 9, Alkaline Phosphatase 79, Total Creatine Kinase 88 , Creatine Kinase MB 3.0, Troponin I 0.36*H, B-Type Natriuretic Peptide 814.3H, Total Protein 7.7, Albumin 4.1, Amylase Level 46, Lipase 44 10/16/17 05:10: White Blood Count 9.4, Red Blood Count 3.94L, Hemoglobin 12.6, Hematocrit 36, Mean Corpuscular Volume 92, Mean Corpuscular Hemoglobin 32, Mean Corpuscular Hemoglobin Concent 35, Red Cell Distribution Width 13.4, Platelet Count 321, Mean Platelet Volume 9.2, Neutrophils (%) (Auto) 64, Lymphocytes (%) (Auto) 27, Monocytes (%) (Auto) 7, Eosinophils (%) (Auto) 1, Basophils (%) (Auto) 0, Neutrophils # (Auto) 6.0, Lymphocytes # (Auto) 2.5, Monocytes # (Auto) 0.7, Eosinophils # (Auto) 0.1, Basophils # (Auto) 0.0, Sodium Level 134L, Potassium Level 4.3, Chloride Level 100, Carbon Dioxide Level 25, Anion Gap 9, Blood Urea Nitrogen 8, Creatinine 0.95, Estimat Glomerular Filtration Rate 57, BUN/ Creatinine Ratio 8, Glucose Level 210H, Calcium Level 8.7, Magnesium Level 2.0, Total Bilirubin 0.2, Aspartate Amino Transf (AST/SGOT) 11, Alanine Aminotransferase (ALT/SGPT) 7, Alkaline Phosphatase 63, Troponin I 1.07*H, Total Protein 5.9L, Albumin 3.3, Phosphorus Level 4.3, Myoglobin 124.0H, Triglycerides Level 129, Cholesterol Level 136, LDL Cholesterol Direct 84, VLDL Cholesterol 26, HDL Cholesterol 39L 10/16/17 09:18: Laboratory Tests 10/15/17 23:10 10/16/17 05:10 A/P-Cardiology Assessment/Admission Diagnosis Recurrent NSTEMI Ac NSTEMI on 09/30/17 due to occlusion of SVG to RI, treated with PCI: Last card cath and cor intervention of 09/30/17: CAD consisting of severe proximal disease of the LAD, proximal occlusion of the RI, moderately severe long stenosis in the proximal portion of LCX, patent stents in prox and distal RCA (Taxus 3 mm stents) and moderately severe stenosis in a small caliber PDA from RCA; Occlusion of the SVG to RI treated successfully with deployment of Mini Vision 2.0 x 12 mm stent at the site of insertion of the graft into the RI and placement of Alpine Xience 3.0 x 38 mm stent in the proximal and mid portions of the graft; Patent, albeit small caliber, HUFF to the LAD; Normal LVEDP; Diaphragmatic akinesis of the left ventricle; LVEF approx 50%. Continuing tobacco use despite advice to quit Probable COPD Chronically low blood pressure that does not allow treatment with TAM- inhibitors or ARBs. 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 CT of head and cervical spine on 10/01/17: Chronic changes. No acute intracranial process is detected. Cervical spondylosis. No acute bony abnormality is detected Noncompliance Admission Status: Inpatient Order (span 2 midnights) Reason for Inpatient Admission: Ac NSTEMI Discussion and Recomendations * Management remains complex due to complex CAD and continuing noncompliance with med instructions (see above) * Given continuing symptoms, we discussed repeat cath and possible PCI. She wishes to proceed. We reviewed the rationale, procedure, risks, benefits, potential complications, alternatives. All questions answered. She understands and provides informed consent Clinical Quality Measures AMI/AHF: ASA po Prior to arrival: Yes DVT/VTE Risk/Contraindication: Risk Factor Score Per Nursin RFS Level Per Nursing on Admit: 3=High MIGUEL ANGEL ZAVALA MD FACP [facility] Oct 16, 2017 09:49
[2017-10-16] MEDS ORDERED: MIDAZOLAM 5 MG/5 ML (VERSED) VIAL ONE (10:07)
[2017-10-16] MEDS ORDERED: diphenhydrAMINE 50 MG/ML INJ (BENADRYL) ONE (10:07)
[2017-10-16] MEDS ORDERED: fentaNYL INJECTION 100 MCG/2 ML AMP ONE (10:07)
[2017-10-16] MEDS ORDERED: LIDOCAINE 1% INJ 50 ML (XYLOCAINE) VIAL ONE (10:08)
[2017-10-16] MEDS ORDERED: NS IV 1000 ML 1,000 ML ONE (10:08)
[2017-10-16] MEDS ORDERED: HEParin (CATH LAB) 2,000 ML IV ONE (10:08)
[2017-10-16] MEDS ORDERED: NS IV 1000 ML 1,000 ML IV SCH ×2 (11:00→12:18)
[2017-10-16] MEDS ORDERED: HEParin 1000 UNIT/ML (10ML VIAL) FOR BOLUS ONE (11:17)
[2017-10-16] MEDS ORDERED: NITRO DRIP 25000 MCG/D5W 0 ML IV ONE (11:17)
[2017-10-16] MEDS ORDERED: EPTIFIBATIDE BOLUS 10 ML IV ONE (11:18)
[2017-10-16] MEDS ORDERED: NITRO DRIP 25000 MCG/D5W 250 ML IV ONE (11:39)
[2017-10-16] MEDS ORDERED: EPTIFIBATIDE DRIP 100 ML IV ONE (11:46)
[2017-10-16] MEDS ORDERED: niCARdipine 25 MG/10 ML (CARDENE) AMP IV ONE (11:52)
[2017-10-16] MEDS ORDERED: NS (IVPB) 250 ML ONE (11:52)
[2017-10-16] MEDS ORDERED: CLOPIDOGREL 75 MG (PLAVIX) TABLET ONE (12:05)
[2017-10-16] MEDS ORDERED: ASPIRIN 81 MG CHEW (CHILDREN'S ASA) ONE (12:14)
[2017-10-16] MEDS ORDERED: ACETAMINOPHEN 325 MG TABLET PO PRN (12:30)
[2017-10-16] MEDS ORDERED: PATIENT MAY USE OWN MEDS, ALL PO SCH (12:30)
--- NOTE | 2017-10-16 15:35 | CARDIAC CATHETERIZATION ---
DATE OF SERVICE: 10/16/2017 CARDIAC CATHETERIZATION AND CORONARY INTERVENTION REPORT INDICATION: The patient is a 77-year-old lady, who has extensive coronary artery disease and has had coronary bypass surgery and recent percutaneous intervention to a completely occluded saphenous vein graft to ramus intermedius. She has continued to smoke and has intermittently been noncompliant with medications. She presents with another non-ST elevation myocardial infarction and cardiac catheterization was carried out after having obtained an informed consent for the cardiac catheterization and possible ad-hoc coronary intervention. DESCRIPTION OF PROCEDURE: She was brought to the cardiac catheterization laboratory in a fasting state. Right groin was prepared and draped in the usual sterile fashion. Lidocaine 1% for local anesthesia. Modified Seldinger technique was used to advance a 6-Macanese sheath into the right femoral artery. We used a 6-Macanese JL4 catheter used for left coronary angiography and a 6-Macanese JR4 catheter for angiography of the right coronary artery and for angiography of the saphenous vein graft to the ramus intermedius. The left internal mammary artery graft is patent, based on cardiac catheterization on 09/30/2017 and was not reengaged at the time of this cardiac catheterization. We used a 5-[place]anese pigtail catheter for left heart catheterization and left ventricular angiography. PERCUTANEOUS INTERVENTION TO THE SAPHENOUS VEIN GRAFT TO THE RAMUS INTERMEDIUS ARTERY: Following completion of the diagnostic procedure, we proceeded with intervention to the saphenous vein graft to the ramus intermedius artery. This was found to be completely occluded and at the time of this catheterization and was the culprit lesion and causing the patient's acute non-ST elevation myocardial infarction. We used a 6-Macanese JR4 guide catheter to engage the graft. We first used a ChoICE floppy wire which did not advance. We then used a ChoICE PT Graphix wire. With moderate difficulty, we were able to advance it across the stents within the saphenous graft to the right coronary artery and the tip of the wire was placed in a distal branch of the ramus intermedius. We carried out suction thrombectomy with a suction thrombectomy catheter. Multiple runs were made. Antegrade flow was established through the graft into the ramus intermedius. We then carried out balloon angioplasty within the proximal stent of the saphenous vein graft. This is where the stent thrombosis had occurred. The stent is known to be Alpine Xience 3.0 x 38 mm stent. We carried out balloon angioplasty with Emerge 3.5 x 30 mm balloon. Multiple balloon inflations were carried out to cover the entire extent of the proximally stented area. We gave 500 mcg of intracoronary nicardipine. At the end, there is no significant residual stenosis in the previous site of complete occlusion. Flow throughout the vessel was normal. There is moderate in-stent restenosis within the distal stent. Angioplasty equipment was removed. We carried out angiography of the right femoral artery through the sheath. Mynx was attempted but was unsuccessful. Manual pressure was used to achieve hemostasis. Overall, she tolerated the procedure well. HEMODYNAMICS: Left ventricular end-diastolic pressure following coronary angiography was 22 mmHg. There was no significant pressure gradient on pullback across the aortic valve. Ascending aortic pressure was 111/54 with a mean of 74 mmHg. CORONARY ANGIOGRAPHY: Left main coronary artery does not exhibit significant disease. Left anterior descending artery has multiple 80% to 90% stenoses in its proximal and mid portions. A ramus intermedius artery is occluded in its proximal to mid portion. The left circumflex artery has a long 70% stenosis in its proximal portion. The right coronary artery is dominant. There are 2 patent stents in the right coronary artery, proximal and distal. These do not exhibit significant stent restenosis. A small caliber posterior descending branch of the right coronary artery has 80% ostial and proximal stenosis, but is of a small caliber and not ideal for percutaneous intervention. LEFT VENTRICULAR ANGIOGRAPHY: Left ventricular angiography was carried out in right anterior oblique projection. Global left ventricular systolic function is impaired. There is diaphragmatic akinesis of the left ventricle. There is anterolateral hypokinesis to akinesis of the left ventricle. Left ventricular ejection fraction is 30% to 35%. There did not appear to be significant mitral regurgitation on this study. SAPHENOUS VEIN GRAFT ANGIOGRAPHY: The saphenous vein graft to ramus intermedius was completely occluded in its proximal portion. To this, a successful balloon angioplasty was carried out that as detailed above. Following angioplasty, there is no significant residual stenosis at the previous site of complete occlusion. The distal stent within the ramus intermedius has moderate in-stent restenosis. Flow throughout the vessel, at the end of the procedure, is normal. CONCLUSIONS: 1. Subacute occlusion of the saphenous vein graft to the ramus intermedius artery to which a percutaneous intervention was carried out on 09/30/2017 that included Mini Vision 2.0 x 12 mm stent at the site of insertion of the graft into the ramus intermedius and an Alpine Xience 3.0 mm x 38 mm stent in the proximal and mid portions of the graft. Today, for subacute stent thrombosis, repeat intervention was carried out that included suction thrombectomy and balloon angioplasty of the proximal stent with Emerge 3.5 x 30 mm balloon. Following these interventions, there is no significant residual stenosis at the site of complete occlusion and flow through the vessel is normal. There is moderate in-stent restenosis in the distal stent. 2. [place] coronary artery disease consisting of severe proximal disease of the left anterior descending artery, proximal occlusion of the ramus intermedius, moderately severe long stenosis in the proximal portion of the left circumflex, and moderately severe stenosis in a small caliber posterior descending branch of the right coronary. The stents within the proximal and distal right coronary are patent. 3. Left internal mammary artery graft to the left anterior descending artery known to be patent, albeit small caliber, based on cardiac catheterization of 09/30/2017. 4. Elevated left ventricular end-diastolic pressure. 5. Diaphragmatic wall akinesis and anterolateral hypokinesis to akinesis of the left ventricle with left ventricular ejection fraction approximately 30% to 35%. DISCUSSION AND RECOMMENDATIONS: Once again, she has been advised to quit smoking immediately and completely. She has been advised compliance with therapy with dual antiplatelet therapy. Statins are being continued. In the past, blood pressure has been an issue that has prevented adequate treatment with beta-blockers and TAM inhibitors. Currently, we have added a small dose of beta-blockers. If blood pressures will allow us, we will try to add TAM inhibitors. Job ID: [id number] DocumentID: [id number] Dictated Date: 10/16/2017 12:48:51 Director Bioinformatics Date: 10/16/2017 15:35:01 Dictated By: DORA HASSAN MD, MA, FACP, FACC, MTDD
[2017-10-16] MEDS: ENOXAPARIN 40 MG/0.4 ML (LOVENOX) SYR SC SCH (17:23)
[2017-10-16] MEDS: ATORVASTATIN 40 MG (LIPITOR) TABLET PO SCH (20:28)
[2017-10-16] MEDS: oxyCODONE/APAP 5/325MG (PERCOCET 5) TABLET PO PRN (22:13)
[2017-10-17] VITALS (16 sets, daily range): BP systolic 83–161; BP diastolic 39–69
[2017-10-17 03:40] LABS: BASOPHILS % (AUTO) 1 % (0-10); EOSINOPHILS # (AUTO) 0.1 10^3/uL (0.0-0.3); EOSINOPHILS % (AUTO) 2 % (0-10); HEMATOCRIT 32 % (35-52); LYMPHOCYTES % (AUTO) 32 % (12-44); MEAN CORPUSCULAR HGB CONC 33 G/DL (32-36); MEAN CORPUSCULAR VOLUME 94 FL (80-99); MONOCYTES # (AUTO) 0.5 X 10^3 (0.0-1.0); MONOCYTES % (AUTO) 8 % (0-12); NEUTROPHILS # (AUTO) 3.6 X 10^3 (1.8-7.8); NEUTROPHILS % (AUTO) 58 % (42-75); PLATELET COUNT 235 10^3/uL (130-400); RED CELL DISTRIBUTION WIDTH 13.2 % (10.0-14.5)
[2017-10-17 03:43] LABS: WHITE BLOOD COUNT 6.9 10^3/uL (4.3-11.0)
[2017-10-17 03:44] LABS: HEMOGLOBIN 11.8 G/DL (11.5-16.0); MEAN CORPUSCULAR HEMOGLOBIN 31 PG (25-34); RED BLOOD COUNT 3.75 10^6/uL (4.35-5.85)
[2017-10-17 04:03] LABS: CALCIUM 8.2 MG/DL (8.5-10.1); MAGNESIUM 2.1 MG/DL (1.8-2.4)
[2017-10-17] MEDS: CATHETER FLUSH 10 ML SYR IV SCH ×3 (06:31→20:02)
[2017-10-17] MEDS: inSUlin (REGULAR) HUMAN 1 UNIT/0.01 ML (CHARGE PER UNIT) SC SCH ×4 (06:31→20:57)
--- NOTE | 2017-10-17 08:10 | Diagnostic Imaging Report ---
INDICATION: Heart disease. COMPARISON: 10/16/2017. FINDINGS: The heart size is normal. There has been a previous median sternotomy. There is no pleural effusion or pneumothorax. The mediastinum is unremarkable. IMPRESSION: No acute cardiopulmonary abnormality. Dictated by: Dictated on workstation # [id number]
[2017-10-17] MEDS: CLOPIDOGREL 75 MG (PLAVIX) TABLET PO SCH (08:22)
[2017-10-17] MEDS: ASPIRIN 81 MG CHEW (CHILDREN'S ASA) PO SCH (08:22)
[2017-10-17] MEDS ORDERED: PANT40TA2 PO (13:01)
[2017-10-17] MEDS ORDERED: CLOP75TA28 PO (13:01)
[2017-10-17] MEDS ORDERED: lisINopril 5 MG (PRINIVIL) TABLET PO NR (14:30)
[2017-10-17] MEDS: oxyCODONE/APAP 5/325MG (PERCOCET 5) TABLET PO PRN (15:04)
[2017-10-17] MEDS: morphine INJ 4 MG/ML 1 ML (VIAL/SYRINGE) IVP PRN ×2 (17:13→20:45)
[2017-10-17] MEDS: ENOXAPARIN 40 MG/0.4 ML (LOVENOX) SYR SC SCH (17:13)
[2017-10-17] MEDS: ATORVASTATIN 40 MG (LIPITOR) TABLET PO SCH (20:02)
[2017-10-18] VITALS: BP 89/56
[2017-10-18 03:34] LABS: BASOPHILS % (AUTO) 1 % (0-10); EOSINOPHILS # (AUTO) 0.1 10^3/uL (0.0-0.3); EOSINOPHILS % (AUTO) 2 % (0-10); HEMATOCRIT 35 % (35-52); HEMOGLOBIN 11.9 G/DL (11.5-16.0); LYMPHOCYTES # (AUTO) 2.4 X 10^3 (1.0-4.0); LYMPHOCYTES % (AUTO) 37 % (12-44); MEAN CORPUSCULAR HGB CONC 34 G/DL (32-36); MEAN CORPUSCULAR VOLUME 94 FL (80-99); MEAN PLATELET VOLUME 9.6 FL (7.4-10.4); MONOCYTES # (AUTO) 0.7 X 10^3 (0.0-1.0); MONOCYTES % (AUTO) 11 % (0-12); NEUTROPHILS # (AUTO) 3.1 X 10^3 (1.8-7.8); NEUTROPHILS % (AUTO) 49 % (42-75); PLATELET COUNT 284 10^3/uL (130-400); RED BLOOD COUNT 3.78 10^6/uL (4.35-5.85); RED CELL DISTRIBUTION WIDTH 13.4 % (10.0-14.5); WHITE BLOOD COUNT 6.3 10^3/uL (4.3-11.0)
[2017-10-18 03:38] LABS: MEAN CORPUSCULAR HEMOGLOBIN 31 PG (25-34)
[2017-10-18 04:00] VITALS: BP 103/63
[2017-10-18 04:21] LABS: BUN/CREATININE RATIO 12; CALCIUM 8.4 MG/DL (8.5-10.1); CARBON DIOXIDE 23 MMOL/L (21-32); CHLORIDE 106 MMOL/L (98-107); CREATININE SERUM 0.77 MG/DL (0.60-1.30); GFR ESTIMATED > 60; GLUCOSE 161 MG/DL (70-105); MAGNESIUM 1.8 MG/DL (1.8-2.4); PHOSPHORUS 3.1 MG/DL (2.3-4.7); POTASSIUM 3.9 MMOL/L (3.6-5.0); SODIUM 136 MMOL/L (135-145)
[2017-10-18] MEDS: inSUlin (REGULAR) HUMAN 1 UNIT/0.01 ML (CHARGE PER UNIT) SC SCH (04:24)
[2017-10-18] MEDS: CATHETER FLUSH 10 ML SYR IV SCH (04:27)
[2017-10-18] MEDS: oxyCODONE/APAP 5/325MG (PERCOCET 5) TABLET PO PRN (04:27)
[2017-10-18] MEDS: ASPIRIN 81 MG CHEW (CHILDREN'S ASA) PO SCH (07:56)
[2017-10-18] MEDS: CLOPIDOGREL 75 MG (PLAVIX) TABLET PO SCH (07:56)
[2017-10-18 08:30] VITALS: BP 93/58
[2017-10-18] MEDS ORDERED: lisINopril 5 MG (PRINIVIL) TABLET PO SCH (09:00)
--- NOTE | 2017-10-18 09:00 | Progress Note-Cardiology ---
Cardiology SOAP Progress Note Subjective: Feels better. Family by bedside. No cp or palp or syncope. Shortness of breath and bilat leg weakness and lower back and hip discomfort are at their usual baseline Wishes to go home Objective: I&O/Vital Signs 10/18/17 10/18/17 10/18/17 10/18/17 00:00 01:00 04:00 07:00 Temp 98.1 97.7 Pulse 99 86 74 75 Resp 17 16 B/P (MAP) 89/56 (67) 103/63 (76) Pulse Ox 96 97 O2 Delivery Room Air Room Air 10/18/17 00:00 Intake Total 840 ml Balance 840 ml Weight (Pounds): 133 Weight (Ounces): 3.0 Weight (Calculated Kilograms): 60.380569 Device Insertion Site: without hematoma, no signs of inflammation Bruising: mild bruising Constitutional: AAO x 3, well-developed, other (thin appearing) Respiratory: No accessory muscle use; other (fair air entry, somewhat prolong exp phase, some scattered wheezes) Cardiovascular: regular rate-rhythm, S1 and S2, systolic murmur (2/6 MSM at card base) Gastrointestional: No tender; soft; No guarding, No rebound; audible bowel sounds Extremities: No clubbing, No cyanosis, No significant edema Neurologic/Psychiatric: oriented x 3, other (chronic bilat leg weakness, but able to move against gravity), grossly intact Skin: No rash on exposed areas, No ulcerations on exposed areas Results/Procedures: Labs Laboratory Tests 10/17/17 12:03: Glucometer 173H 10/17/17 15:56: Glucometer 268H 10/17/17 20:51: Glucometer 198H 10/18/17 03:15: White Blood Count 6.3, Red Blood Count 3.78L, Hemoglobin 11.9, Hematocrit 35, Mean Corpuscular Volume 94, Mean Corpuscular Hemoglobin 31, Mean Corpuscular Hemoglobin Concent 34, Red Cell Distribution Width 13.4, Platelet Count 284, Mean Platelet Volume 9.6, Neutrophils (%) (Auto) 49, Lymphocytes (%) (Auto) 37, Monocytes (%) (Auto) 11, Eosinophils (%) (Auto) 2, Basophils (%) (Auto) 1, Neutrophils # (Auto) 3.1, Lymphocytes # (Auto) 2.4, Monocytes # (Auto) 0.7, Eosinophils # (Auto) 0.1, Basophils # (Auto) 0.0, Sodium Level 136, Potassium Level 3.9, Chloride Level 106, Carbon Dioxide Level 23, Anion Gap 7, Blood Urea Nitrogen 9, Creatinine 0.77, Estimat Glomerular Filtration Rate > 60, BUN/ Creatinine Ratio 12, Glucose Level 161H, Calcium Level 8.4L, Phosphorus Level 3.1, Magnesium Level 1.8 Microbiology 10/16/17 MRSA Screen - Final, Complete A/P: Assessment: Recurrent NSTEMI, treated with balloon angioplasty of occluded SVG to RI on 10/16 (see below) Ac NSTEMI on 09/30/17 due to occlusion of SVG to RI, treated with PCI: Cath and cor intervention of 09/30/17: CAD consisting of severe proximal disease of the LAD, proximal occlusion of the RI, moderately severe long stenosis in the proximal portion of LCX, patent stents in prox and distal RCA (Taxus 3 mm stents ) and moderately severe stenosis in a small caliber PDA from RCA; Occlusion of the SVG to RI treated successfully with deployment of Mini Vision 2.0 x 12 mm stent at the site of insertion of the graft into the RI and placement of Alpine Xience 3.0 x 38 mm stent in the proximal and mid portions of the graft; Patent, albeit small caliber, HUFF to the LAD; Normal LVEDP; Diaphragmatic akinesis of the left ventricle; LVEF approx 50%. Cath and cor intervention of 10/16/17: Occlusion of SVG to RI that was treated with successful balloon angioplasty Continuing tobacco use despite advice to quit Probable COPD Chronically low blood pressure that does not allow treatment with TAM- inhibitors or ARBs. 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 CT of head and cervical spine on 10/01/17: Chronic changes. No acute intracranial process is detected. Cervical spondylosis. No acute bony abnormality is detected Noncompliance Plan: * We discussed in detail the findings of card cath of 10/16/17 and the interventions undertaken * We discussed risk factor modification. I told her it was imperative for her to quit smoking and be compliant with meds * We have advised increased ambulation * Echo to reeval EF, because EF was low at time of cath of 10/16/17 and we need to make a decision regarding defib/Life Vest (although she is not interested in any of that, at least at this time) NOTE: This is late entry for my visit to the patient on 10/17/17 at approximately 11 am Clinical Quality Measures AMI/AHF: ASA po Prior to arrival: Yes DORA HASSAN MD FACP [facility]ACC [facility]S Oct 18, 2017 09:00
[2017-10-18] MEDS ORDERED: LISI-556 PO (09:01)
[2017-10-18] MEDS ORDERED: METO-387 PO (09:01)
--- NOTE | 2017-10-18 09:03 | Discharge Inst-Cardiology ---
Discharge Inst-Cardiac Discharge Medications New Medications: Lisinopril (Lisinopril) 5 Mg Tablet 2.5 MG PO DAILY, #30 TAB 5 Refills Metoprolol Succinate (Metoprolol Succinate) 25 Mg Tab.er.24h 12.5 MG PO DAILY, #30 TAB 5 Refills Continued Medications: Aspirin (Aspirin EC) 81 Mg Tablet.dr 81 MG PO HS, TAB Atorvastatin Calcium (Atorvastatin Calcium) 80 Mg Tablet 80 MG PO HS, TAB Clopidogrel Bisulfate (Clopidogrel) 75 Mg Tablet 75 MG PO HS, TAB Gabapentin (Gabapentin) 300 Mg Capsule 300 MG PO HS, CAP Guaifenesin/Dextromethorphan (Guaifenesin Dm Syrup) 5 Ml Syrup 10 ML PO Q4H PRN for COUGH, ML Insulin Glargine,Hum.rec.anlog (Lantus) 100 Unit/1 Ml Vial 21 UNIT SQ HS, #1 VIAL Pantoprazole Sodium (Protonix) 40 Mg Tablet.dr 40 MG PO DAILY Tramadol HCl (Tramadol HCl) 50 Mg Tablet 50 MG PO TID PRN for PAIN-MODERATE, TAB Discontinued Medications: Carvedilol (Carvedilol) 3.125 Mg Tablet 3.125 MG PO BID, TAB New, Converted or Re-Newed RX: Transmitted to Pharmacy Patient Instructions Patient Instructions: Please scheduled follow up appointment to see Dr. Zavala in one week Orders-Post D/C & Referrals Pneu Vac Indicated: Yes JERARDO SCHWARTZ Oct 18, 2017 09:03
--- NOTE | 2017-10-18 09:12 | Progress Note-Cardiology ---
Cardiology SOAP Progress Note Subjective: She wishes to go home. Doesn't wish to stay in the hosp any longer No cp or palp or syncope Shortness of breath and chronic low back discomfort and leg weakness at their usual baseline Objective: I&O/Vital Signs 10/18/17 10/18/17 10/18/17 10/18/17 00:00 01:00 04:00 07:00 Temp 98.1 97.7 Pulse 99 86 74 75 Resp 17 16 B/P (MAP) 89/56 (67) 103/63 (76) Pulse Ox 96 97 O2 Delivery Room Air Room Air 10/18/17 00:00 Intake Total 840 ml Balance 840 ml Weight (Pounds): 133 Weight (Ounces): 3.0 Weight (Calculated Kilograms): 60.191029 Device Insertion Site: without hematoma, no signs of inflammation Bruising: mild bruising Constitutional: AAO x 3, well-developed, other (thin appearing) Respiratory: No accessory muscle use; other (fair air entry, somewhat prolong exp phase, some scattered wheezes) Cardiovascular: regular rate-rhythm, S1 and S2, systolic murmur (2/6 MSM at card base) Gastrointestional: No tender; soft; No guarding, No rebound; audible bowel sounds Extremities: No clubbing, No cyanosis, No significant edema Neurologic/Psychiatric: oriented x 3, other (chronic bilat leg weakness, but able to move against gravity), grossly intact Skin: No rash on exposed areas, No ulcerations on exposed areas Results/Procedures: Labs Laboratory Tests 10/17/17 12:03: Glucometer 173H 10/17/17 15:56: Glucometer 268H 10/17/17 20:51: Glucometer 198H 10/18/17 03:15: White Blood Count 6.3, Red Blood Count 3.78L, Hemoglobin 11.9, Hematocrit 35, Mean Corpuscular Volume 94, Mean Corpuscular Hemoglobin 31, Mean Corpuscular Hemoglobin Concent 34, Red Cell Distribution Width 13.4, Platelet Count 284, Mean Platelet Volume 9.6, Neutrophils (%) (Auto) 49, Lymphocytes (%) (Auto) 37, Monocytes (%) (Auto) 11, Eosinophils (%) (Auto) 2, Basophils (%) (Auto) 1, Neutrophils # (Auto) 3.1, Lymphocytes # (Auto) 2.4, Monocytes # (Auto) 0.7, Eosinophils # (Auto) 0.1, Basophils # (Auto) 0.0, Sodium Level 136, Potassium Level 3.9, Chloride Level 106, Carbon Dioxide Level 23, Anion Gap 7, Blood Urea Nitrogen 9, Creatinine 0.77, Estimat Glomerular Filtration Rate > 60, BUN/ Creatinine Ratio 12, Glucose Level 161H, Calcium Level 8.4L, Phosphorus Level 3.1, Magnesium Level 1.8 Microbiology 10/16/17 MRSA Screen - Final, Complete Laboratory Tests 10/17/17 03:30 10/18/17 03:15 A/P: Assessment: Recurrent NSTEMI, treated with balloon angioplasty of occluded SVG to RI on 10/16 (see below) Ac NSTEMI on 09/30/17 due to occlusion of SVG to RI, treated with PCI: Cath and cor intervention of 09/30/17: CAD consisting of severe proximal disease of the LAD, proximal occlusion of the RI, moderately severe long stenosis in the proximal portion of LCX, patent stents in prox and distal RCA (Taxus 3 mm stents ) and moderately severe stenosis in a small caliber PDA from RCA; Occlusion of the SVG to RI treated successfully with deployment of Mini Vision 2.0 x 12 mm stent at the site of insertion of the graft into the RI and placement of Alpine Xience 3.0 x 38 mm stent in the proximal and mid portions of the graft; Patent, albeit small caliber, HUFF to the LAD; Normal LVEDP; Diaphragmatic akinesis of the left ventricle; LVEF approx 50%. Cath and cor intervention of 10/16/17: Occlusion of SVG to RI that was treated with successful balloon angioplasty Echo of 10/18/17: LVEF 45-50%, anteroseptal hypokinesis to akinesis, mild MR and TR, PASP 30-35 mmHg, Grade I diastolic dysfunction Continuing tobacco use despite advice to quit Probable COPD Chronically low blood pressure that does not allow treatment with TAM- inhibitors or ARBs. 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 CT of head and cervical spine on 10/01/17: Chronic changes. No acute intracranial process is detected. Cervical spondylosis. No acute bony abnormality is detected Noncompliance, intermittent Plan: * We again discussed in detail the findings of card cath of 10/16/17 and the interventions undertaken * We discussed risk factor modification. I told her it was imperative for her to quit smoking and be compliant with meds * Given that EF is better than 35%, she does not meet criteria for ext defib vest * She has a h/o chronic hypotension. She is tolerating her current regimen. We will slowly increase on outpatient f/u, if she continues to tolerate the regimen Clinical Quality Measures AMI/AHF: ASA po Prior to arrival: Yes DORA HASSAN MD FACP FAC CCDS Oct 18, 2017 09:12
--- NOTE | 2017-10-18 09:16 | Cardiology Discharge Summary ---
Diagnosis/Chief Complaint Date of Admission Oct 16, 2017 at 00:20 Date of Discharge 10/18/17 Final/Discharge Diagnosis Recurrent NSTEMI, treated with balloon angioplasty of occluded SVG to RI on 10/16 (see below) Ac NSTEMI on 09/30/17 due to occlusion of SVG to RI, treated with PCI: Cath and cor intervention of 09/30/17: CAD consisting of severe proximal disease of the LAD, proximal occlusion of the RI, moderately severe long stenosis in the proximal portion of LCX, patent stents in prox and distal RCA (Taxus 3 mm stents ) and moderately severe stenosis in a small caliber PDA from RCA; Occlusion of the SVG to RI treated successfully with deployment of Mini Vision 2.0 x 12 mm stent at the site of insertion of the graft into the RI and placement of Alpine Xience 3.0 x 38 mm stent in the proximal and mid portions of the graft; Patent, albeit small caliber, HUFF to the LAD; Normal LVEDP; Diaphragmatic akinesis of the left ventricle; LVEF approx 50%. Cath and cor intervention of 10/16/17: Occlusion of SVG to RI that was treated with successful balloon angioplasty Echo of 10/18/17: LVEF 45-50%, anteroseptal hypokinesis to akinesis, mild MR and TR, PASP 30-35 mmHg, Grade I diastolic dysfunction Continuing tobacco use despite advice to quit Probable COPD Chronically low blood pressure that does not allow treatment with TAM- inhibitors or ARBs. She has been able to tolerate only a very small dose of beta -blockers and sometimes has difficulty even with that DM II, managed by Dr Shultz Bilateral peripheral neuropathy in a stocking distribution (likely due to DM II) Chronic bilateral leg weakness and headaches and feet discomfort. CT of head and cervical spine on 10/01/17: Chronic changes. No acute intracranial process is detected. Cervical spondylosis. No acute bony abnormality is detected Noncompliance, intermittent Chief Complaint/HPI Chief Complaint/HPI CC: Chest pain HPI: 77 yo woman with known extensive CAD, recently treated with PCI to RI graft after presentation with NSTEMI in late September 2017. Has had recurrent cp: midsternal, pressure or burning, radiating to L shoulder, mod to mod sev, sometimes associated with mild sweating, no aggravating or relieving factors ( except narcotic analgesics), onset yesterday, episodes lasting minutes to hours. Has continued to smoke cigarettes. She thinks she has been taking all her meds (but isn't sure). Denies palp or syncope. Has chronic exertional shortness of breath. Denies leg swelling. Has chronic bilat leg weakness For condition at discharge, please see the progress note of the same date () Discharge Summary Procedures Cath and PCI on 10/16/17 Hospital Course Pending Labs Laboratory Tests 10/18/17 03:15: White Blood Count 6.3, Red Blood Count 3.78, Hemoglobin 11.9, Hematocrit 35, Mean Corpuscular Volume 94, Mean Corpuscular Hemoglobin 31, Mean Corpuscular Hemoglobin Concent 34, Red Cell Distribution Width 13.4, Platelet Count 284, Mean Platelet Volume 9.6, Neutrophils (%) (Auto) 49, Lymphocytes (%) (Auto) 37, Monocytes (%) (Auto) 11, Eosinophils (%) (Auto) 2, Basophils (%) (Auto) 1, Neutrophils # (Auto) 3.1, Lymphocytes # (Auto) 2.4, Monocytes # (Auto) 0.7, Eosinophils # (Auto) 0.1, Basophils # (Auto) 0.0, Sodium Level 136, Potassium Level 3.9, Chloride Level 106, Carbon Dioxide Level 23, Anion Gap 7, Blood Urea Nitrogen 9, Creatinine 0.77, Estimat Glomerular Filtration Rate > 60, BUN/ Creatinine Ratio 12, Glucose Level 161, Calcium Level 8.4, Phosphorus Level 3.1 , Magnesium Level 1.8 Discussion & Recommendations Home Medications Reviewed patient Home Medication Reconciliation performed by pharmacy medication reconciliations heat treat technician and/or nursing. Patients Allergies have been reviewed. Discharge Home Medications: Reviewed and agree with Discharge Medication list on patient's Discharge Instruction sheet Clinical Quality Measures AMI/AHF: ASA po Prior to arrival: Yes DVT/VTE Risk/Contraindication: Risk Factor Score Per Nursin RFS Level Per Nursing on Admit: 3=High DORA HASSAN MD FACP FAC CCDS Oct 18, 2017 09:16
[2017-10-18] MEDS ORDERED: INSU100V6 SQ (09:28)
[2017-10-18 11:20] VITALS: BP 108/88
== END 2017-10-18 11:30 | disposition home or self-care (01) | DRG 250 ==
LOC: EDUNIT# 23:03 → ER 23:05 → ICU 10-16 00:20 → 4TH 10-17 15:19
PROVIDERS: ADMIT Internal Medicine Cardiovascular Disease; ATTEND Internal Medicine Cardiovascular Disease
PROC: 02703ZZ Dilation of Coronary Artery, One Artery, Percutaneous Approach (ICD-10-PCS; principal; 2017-10-16)
PROC: 02C03ZZ Extirpation of Matter from Coronary Artery, One Artery, Percutaneous Approach (ICD-10-PCS; 2017-10-16)
PROC: 4A023N7 Measurement of Cardiac Sampling and Pressure, Left Heart, Percutaneous Approach (ICD-10-PCS; 2017-10-16)
PROC: B2151ZZ Fluoroscopy of Left Heart using Low Osmolar Contrast (ICD-10-PCS; 2017-10-16)
PROC: B2111ZZ Fluoroscopy of Multiple Coronary Arteries using Low Osmolar Contrast (ICD-10-PCS; 2017-10-16)
PROC: B2121ZZ Fluoroscopy of Single Coronary Artery Bypass Graft using Low Osmolar Contrast (ICD-10-PCS; 2017-10-16)
DX: T82.868A Thrombosis due to vascular prosthetic devices, implants and grafts, initial encounter (principal); T82.855A Stenosis of coronary artery stent, initial encounter; I22.2 Subsequent non-ST elevation (NSTEMI) myocardial infarction; I21.4 Non-ST elevation (NSTEMI) myocardial infarction; I25.810 Atherosclerosis of coronary artery bypass graft(s) without angina pectoris; I25.10 Atherosclerotic heart disease of native coronary artery without angina pectoris; F17.210 Nicotine dependence, cigarettes, uncomplicated; J44.9 Chronic obstructive pulmonary disease, unspecified; I11.0 Hypertensive heart disease with heart failure; I50.9 Heart failure, unspecified; I25.2 Old myocardial infarction; E78.00 Pure hypercholesterolemia, unspecified; G40.909 Epilepsy, unspecified, not intractable, without status epilepticus; M81.0 Age-related osteoporosis without current pathological fracture; F41.9 Anxiety disorder, unspecified; F32.9 Major depressive disorder, single episode, unspecified; M47.892 Other spondylosis, cervical region; E11.42 Type 2 diabetes mellitus with diabetic polyneuropathy; I95.9 Hypotension, unspecified; M19.91 Primary osteoarthritis, unspecified site; K21.9 Gastro-esophageal reflux disease without esophagitis; R51 Headache; Z95.5 Presence of coronary angioplasty implant and graft; Z95.1 Presence of aortocoronary bypass graft; Z79.4 Long term (current) use of insulin; Z86.73 Personal history of transient ischemic attack (TIA), and cerebral infarction without residual deficits; Z91.19 Patient's noncompliance with other medical treatment and regimen
CPT/HCPCS: 36415; 71045; 80048; 80053; 80061; 82150; 82550; 82553; 82962; 83690; 83735; 83874; 83880; 84100; 84484; 85025; 85610; 85730; 87081; 93005; 93041; 93306; 93459; 96372; 96374; 96375

== ENCOUNTER 2018-03-18 20:46 | Emergency (ER) | payer MEDICARE ==
[~2018-03-18] VITALS: Ht 170.2 cm; Wt 60.4 kg
[~2018-03-18 20:46] MED LIST changes: +LISI-556 PO; -OXYC-197 PO; +OXYC1TAB87 PO
--- NOTE | 2018-03-18 21:10 | ED General ---
General Chief Complaint: General Problems/Pain Stated Complaint: PAIN ALL OVER Source of Information: Patient, Family History of Present Illness Date Seen by Provider: Mar 18, 2018 Time Seen by Provider: 20:52 Initial Comments Patient presents to the ER by private conveyance with chief complaint she's having pain all over. No focal point of complaint. She's in a dismal historian saying only that it started couple weeks ago. Her family says that she lives with one of her granddaughters and her and they've noticed that she's not had a much to eat or drink or many bowel movements or urine outputs in the last couple weeks. They took her to see Dr. Siegel but he was out of the office so somehow they got a prescription for Lortab which she took a couple times and says did not help. Her daughter thinks she may taken one yesterday and none today. Patient has chronic bilateral lower extremity pain secondary to peripheral neuropathy and a history of two-vessel bypass without valve replacement. She also has a history of strokes. She denies being on blood thinners. She does not have a list of her medications nor can she recite any of them. Her family says she has not been taking her medications for the past couple weeks. Today they gave her a shower and said that that wore her out so they finally got her to agree to come the ER to be checked out. She's not having any cough fevers chills but she does feel cold. She's not having any painful urination. Allergies and Home Medications Allergies Coded Allergies: NKANo Known Allergies (Verified Allergy, Unknown, 04/27/13) Home Medications Aspirin 81 Mg Tablet.dr, 81 MG PO HS, (Reported) Atorvastatin Calcium 80 Mg Tablet, 80 MG PO HS, (Reported) Clopidogrel Bisulfate 75 Mg Tablet, 75 MG PO HS, (Reported) Gabapentin 300 Mg Capsule, 300 MG PO HS, (Reported) Guaifenesin/Dextromethorphan 5 Ml Syrup, 10 ML PO Q4H PRN for COUGH, (Reported) Insulin Glargine,Hum.rec.anlog 100 Unit/1 Ml Vial, 21 UNIT SQ HS Prescribed by: JOSE ELIAS KNAPP on 10/18/17927 Lisinopril 5 Mg Tablet, 2.5 MG PO DAILY Prescribed by: JERARDO SCHWARTZ on 10/18/17 0901 Metoprolol Succinate 25 Mg Tab.er.24h, 12.5 MG PO DAILY Prescribed by: JERARDO SCHWARTZ on 10/18/17 09 Pantoprazole Sodium 40 Mg Tablet.dr, 40 MG PO DAILY, (Reported) Tramadol HCl 50 Mg Tablet, 50 MG PO TID PRN for PAIN-MODERATE, (Reported) Patient Home Medication List Home Medication List Reviewed: Yes Review of Systems Review of Systems Constitutional: No chills, No diaphoresis EENTM: No hearing loss, No ear pain Respiratory: No cough, No short of breath Cardiovascular: No chest pain, No edema Gastrointestinal: abdominal pain; No constipation, No diarrhea, No nausea Genitourinary: No discharge, No dysuria, No frequency, No hematuria, No hesitancy Musculoskeletal: back pain; No joint pain Skin: No pruritus, No rash Psychiatric/Neurological: Headache; Denies Numbness, Denies Paresthesia, Denies Pre-Existing Deficit Past Baktcil-Jyyidv-Cxeoml Hx Patient Social History Type Used: Cigarettes Recent Foreign Travel: No Contact w/Someone Who Travel: No Recent Hopitalizations: Yes (september 30 was here) Immunizations Up To Date Tetanus Booster (TDap): Unknown PED Vaccines UTD: No Date of Pneumonia Vaccine: Jun 02, 2011 Date of Influenza Vaccine: Apr 02, 2017 Seasonal Allergies Seasonal Allergies: No Past Medical History Surgeries: Yes Appendectomy, Cardiac, CABG, Section, Coronary Stent, Hysterectomy, Oophorectomy, Orthopedic Respiratory: Yes (NO HOME O2, CONTINUES TO SMOKE 1 PPD) COPD Currently Using CPAP: No Cardiac: Yes (MULTIPLE CARDIAC CATHS- MULTIPLE STENTS; CABG) Coronary Artery Disease, Heart Attack, High Cholesterol, Irregular Heartbeat Neurological: Yes Neuropathy, Seizure Disorder, TIA Reproductive Disorders: No Female Reproductive Disorders: Denies 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 ) Diabetes, Insulin dep HEENT: Yes Cataract Loss of Vision: Denies Hearing Impairment: Denies Cancer: No Psychosocial: Yes Anxiety, Depression Integumentary: No Blood Disorders: No Adverse Reaction/Blood Tranf: No Family Medical History FH: suicide FH: uterine cancer 19 MOTHER FHx: diabetes mellitus 19 MOTHER No Pertinent Family Hx Physical Exam-Suspected Sepsis Physical Exam Vital Signs Vital Signs - First Documented 03/18/18 20:55 Temp 96.2 Pulse 103 Resp 18 B/P (MAP) 99/57 (71) Pulse Ox 98 O2 Delivery Room Air Capillary Refill : Height, Weight, BMI Height: 5'7.00" Weight: 133lbs. 3.0oz. 60.765178wa; 20.4 BMI Method:Stated General Appearance: Moderate Distress, Thin Eyes: Bilateral Eye Normal Inspection, Bilateral Eye PERRL, Bilateral Eye EOMI HEENT: PERRL/EOMI, TMs Normal, Normal ENT Inspection; No Pharynx Normal, No Moist Mucous Membranes, No Tonsillar Exudate, No Tonsillar Enlargement Neck: Full Range of Motion, Normal Inspection, Non Tender, Supple Respiratory: Chest Non Tender, Lungs Clear, Normal Breath Sounds, No Accessory Muscle Use, No Respiratory Distress Cardiovascular: Regular Rate, Rhythm, No Edema, Normal Peripheral Pulses Gastrointestinal: Normal Bowel Sounds, Soft, Tenderness (Midepigastric and suprapubic) Extremity: Normal Capillary Refill, Normal Inspection, Non Tender, No Pedal Edema Neurologic/Psychiatric: Alert, Oriented x3, No Motor/Sensory Deficits, rn gastroenterology II- XII Norm as Tested Skin: normal color, warm/dry Focused Exam Lactate Level 03/18/18 21:00: Lactic Acid Level 2.13*H Lactic Acid Level Laboratory Tests Test 03/18/18 21:00 Lactic Acid Level 2.13 MMOL/L (0.50-2.00) *H Progress/Results/Core Measures Suspected Sepsis SIRS Temperature: Pulse: Respiratory Rate: Laboratory Tests 03/18/18 21:00: White Blood Count 35.4*H Blood Pressure / Mean: 03/18/18 21:00: Lactic Acid Level 2.13*H Laboratory Tests 03/18/18 21:00: Creatinine 4.01H, INR Comment 1.3, Platelet Count 235, Total Bilirubin 0.6 Results/Orders Lab Results Laboratory Tests Test 03/18/18 21:00 03/18/18 21:05 03/18/18 21:50 03/18/18 22:15 Range/Units White Blood Count 35.4 *H 4.3-11.0 10^3/uL Red Blood Count 4.28 L 4.35-5.85 10^6/uL Hemoglobin 13.2 11.5-16.0 G/DL Hematocrit 36 35-52 % Mean Corpuscular Volume 84 80-99 FL Mean Corpuscular Hemoglobin 31 25-34 PG Mean Corpuscular Hemoglobin Concent 37 H 32-36 G/DL Red Cell Distribution Width 14.4 10.0-14.5 % Platelet Count 235 130-400 10^3/uL Mean Platelet Volume 10.8 H 7.4-10.4 FL Neutrophils (%) (Auto) 95 H 42-75 % Lymphocytes (%) (Auto) 2 L 12-44 % Monocytes (%) (Auto) 3 0-12 % Eosinophils (%) (Auto) 0 0-10 % Basophils (%) (Auto) 0 0-10 % Neutrophils # (Auto) 33.6 H 1.8-7.8 X 10^3 Lymphocytes # (Auto) 0.6 L 1.0-4.0 X 10^3 Monocytes # (Auto) 1.0 0.0-1.0 X 10^3 Eosinophils # (Auto) 0.0 0.0-0.3 10^3/uL Basophils # (Auto) 0.1 0.0-0.1 10^3/uL Neutrophils % (Manual) 92 % Lymphocytes % (Manual) 2 % Monocytes % (Manual) 4 % Eosinophils % (Manual) 0 % Basophils % (Manual) 0 % Band Neutrophils 2 % Clumped Platelets OCCASIONAL Blood Morphology Comment NORMAL Prothrombin Time 16.3 H 12.2-14.7 SEC INR Comment 1.3 0.8-1.4 Activated Partial Thromboplast Time 26 24-35 SEC Sodium Level 114 *L 135-145 MMOL/L Potassium Level 4.0 3.6-5.0 MMOL/L Chloride Level 81 L 98-107 MMOL/L Carbon Dioxide Level 16 L 21-32 MMOL/L Anion Gap 17 H 5-14 MMOL/L Blood Urea Nitrogen 88 H 7-18 MG/DL Creatinine 4.01 H 0.60-1.30 MG/DL Estimat Glomerular Filtration Rate 11 BUN/Creatinine Ratio 22 Glucose Level 748 *H 70-105 MG/DL Lactic Acid Level 2.13 *H 0.50-2.00 MMOL/L Calcium Level 8.6 8.5-10.1 MG/DL Corrected Calcium 9.6 8.5-10.1 MG/DL Total Bilirubin 0.6 0.1-1.0 MG/DL Aspartate Amino Transf (AST/SGOT) 7 5-34 U/L Alanine Aminotransferase (ALT/SGPT) 8 0-55 U/L Alkaline Phosphatase 135 40-136 U/L Troponin I < 0.30 <0.30 NG/ML Total Protein 6.3 L 6.4-8.2 GM/DL Albumin 2.7 L 3.2-4.5 GM/DL Lipase 58 8-78 U/L Thyroid Stimulating Hormone (TSH) 0.22 L 0.35-4.94 UIU/ML Glucometer > 600 *H > 600 *H 70-110 MG/DL Urine Color YELLOW Urine Clarity VERY CLOUDY H Urine pH 7 5-9 Urine Specific Isabella 1.005 L 1.016-1.022 Urine Protein 2+ H NEGATIVE Urine Glucose (UA) 4+ H NEGATIVE Urine Ketones NEGATIVE NEGATIVE Urine Nitrite NEGATIVE NEGATIVE Urine Bilirubin NEGATIVE NEGATIVE Urine Urobilinogen NORMAL NORMAL MG/DL Urine Leukocyte Esterase 3+ H NEGATIVE Urine RBC (Auto) 5+ H NEGATIVE Urine RBC 5-10 H /HPF Urine WBC >100 H /HPF Urine Squamous Epithelial Cells 0-2 /HPF Urine Crystals NONE /LPF Urine Bacteria LARGE H /HPF Urine Casts NONE /LPF Urine Mucus NEGATIVE /LPF Urine Culture Indicated YES Test 03/18/18 22:55 Range/Units Glucometer 529 *H 70-110 MG/DL My Orders Orders - JUAN C DUKES Accucheck Stat ONCE (03/18/18 21:02) Cbc With Automated Diff (03/18/18 21:02) Comprehensive Metabolic Panel (03/18/18 21:02) Blood Culture (03/18/18 21:02) Sputum Culture (03/18/18 21:02) Urinalysis (03/18/18 21:02) Urine Culture (03/18/18 21:02) Protime With Inr (03/18/18 21:02) Partial Thromboplastin Time (03/18/18 21:02) Chest 1 View, Ap/Pa Only (03/18/18 21:02) Saline Lock/Iv-Start (03/18/18 21:02) Saline Lock/Iv-Start (03/18/18 21:02) Ekg Tracing (03/18/18 21:02) Troponin I (03/18/18 21:02) Vital Signs Adult Sepsis Patie Q15M (03/18/18 21:02) O2 (03/18/18 21:02) Remove Rings In Anticipation O (03/18/18 21:02) Lactic Acid Analyzer (03/18/18 21:02) Ns Iv 1000 Ml (Sodium Chloride 0.9%) (03/18/18 21:15) Piperacillin Sodium/Tazobactam (Zosyn Vi (03/18/18 21:15) Ct Head Wo (03/18/18 21:02) Accucheck Stat ONCE (03/18/18 21:12) Insulin (Regular) Human (Humulin R (Per (03/18/18 21:15) Saline Lock/Iv-Start (03/18/18 21:12) Ns Iv 1000 Ml (Sodium Chloride 0.9%) (03/18/18 21:12) Catheter(Urinary) Insert & Ass 03,15 (03/18/18 21:12) Manual Differential (03/18/18 20:03) Ct Abdomen/Pelvis Wo (03/18/18 21:04) Thyroid Stimulating Hormone (03/18/18 21:57) Lipase (03/18/18 21:57) Medications Given in ED Current Medications Medications Dose Ordered Sig/Roman Route Start Time Stop Time Status Last Admin Dose Admin Insulin Human Regular 10 unit ONCE ONCE IV 03/18/18 21:15 03/18/18 21:16 DC 03/18/18 21:22 10 UNIT Piperacillin Sod/ Tazobactam Sod 4.5 gm/Sodium Chloride 100 ml @ 200 mls/hr ONCE ONCE IV 03/18/18 21:15 03/18/18 21:44 DC 03/18/18 21:22 200 MLS/HR Sodium Chloride 1,000 ml @ 1,000 mls/hr ONCE ONCE IV 03/18/18 21:15 03/18/18 22:14 DC 03/18/18 21:23 1,000 MLS/HR Vital Signs/I&O 03/18/18 20:55 Temp 96.2 Pulse 103 Resp 18 B/P (MAP) 99/57 (71) Pulse Ox 98 O2 Delivery Room Air Capillary Refill : Progress Note #1: Time: 21:11 Progress Note Initial blood glucose is too high to read. She has Lantus on her previous histories don't know she takes a short acting or not. Her daughter says she is not taking insulin in over a week and a half. Dr. Zavala 2-D echocardiogram October 2017: Normal wall thickness left cavity size with EF of 45-50%. Severe hypokinesis of the anteroseptal myocardium. Grade [address] Zavala cardiac catheterization October 1999 180 Subacute occlusion to saphenous vein graft that was stented. Suction thrombectomy and balloon angioplasty of the proximal stent. No significant residual stenosis after intervention. Craig coronary artery disease consisting of severe proximal disease of the left anterior descending artery, proximal occlusion of the ramus intermedius and moderately severe long stenosis in the proximal portion of the left circumflex, as well as moderately severe stenosis and a small caliber posterior descending branch of the right coronary. Stents of the proximal and distal right coronary are patent. Left internal mammary artery graft to left anterior descending artery known to be patent albeit small caliber based on catheterization from September 2017. Diaphragmatic wall akinesis and anterolateral hypokinesis to akinesis of the left ventricle with left ventricular ejection fraction approximately 30-35%. Progress Note #2: Time: 21:54 Progress Note We are going to recheck her blood sugar on the glucometer now she's had 10 units of regular insulin IV. We are just now obtaining urinalysis by putting a Frausto catheter in place. She's got gap and acute kidney injury and will likely find 4+ ketones on the urinalysis indicating she isn't diabetic ketoacidosis. We are going to add a TSH and lipase looking for reasons why she is gotten into DKA. We've already reserved an ICU bed for her. ECG Initial ECG Impression Date: Mar 18, 2018 Initial ECG Impression Time: 21:16 Initial ECG Rate: 95 Initial ECG Rhythm: Normal Sinus Initial ECG Intervals: Normal Initial ECG Impression: Normal Initial ECG Comparisson: Unchanged Comment No ST elevation or depression. Diagnostic Imaging Diagonstic Imaging: Xray Plain Films/CT/US/NM/MRI: chest (1v) Reviewed: Reviewed by Me Diagonstic Imaging: CT (Without contrast) Plain Films/CT/US/NM/MRI: abdomen, pelvis Comments Moderate perinephric stranding around both kidneys and prominent around the right kidney which is larger than the left. Tylenol is not excluded. No obstructive hydronephrosis. She Small nonobstructing stones in the left kidney. Diverticulosis without diverticulitis. 30% compression deformity inferior endplate of L1 likely nonacute. Reviewed: Reviewed by Me Diagonstic Imaging: CT (Without contrast) Plain Films/CT/US/NM/MRI: head Comments Age-related senescent changes with microvascular disease. No infarct mass or hydrocephalus. No change from prior studies. Reviewed: Reviewed by Me Consults Consults : Consulting Physician: EZEKIEL CHOUDHARY DO Consults Notes Declines admission of patient secondary to creatinine over 4 with baseline of 1. She recommends patient go somewhere with nephrology support. Departure Impression Primary Impression: Hyperosmolar hyperglycemic coma due to diabetes mellitus without ketoacidosis Additional Impressions: Pyelonephritis Sepsis Qualified Codes: A41.9 - Sepsis, unspecified organism Acute kidney injury (nontraumatic) Disposition: XFER SHT-TRM HOSP Condition: Critical Transfer Time Spoke to Accepting Phy: 23:10 Transfer Progress Notes [place] 2310: Left VM [facility] [place] 2315: Dr Felder accepted. Transfer Facility: [facility] [place] Method of Transfer: EMS Departure-Patient Inst. Referrals: MERRICK SIEGEL DO (PCP) Primary Care Physician Copy Copies To 1: MERRICK SIEGEL TITUS J Mar 18, 2018 21:10
[2018-03-18] MEDS ORDERED: NS IV 1000 ML 1,000 ML IV SCH ×2 (21:12→23:59)
[2018-03-18] MEDS ORDERED: NS IV 1000 ML 1,000 ML IV ONE (21:15)
[2018-03-18] MEDS ORDERED: PIPERACILLIN SODIUM/TAZOBACTAM 4.5 GM in NS (IVPB) 100 ML IV ONE (21:15)
[2018-03-18] MEDS ORDERED: inSUlin (REGULAR) HUMAN 1 UNIT/0.01 ML (CHARGE PER UNIT) IV ONE (21:15)
[2018-03-18 21:24] LABS: BASOPHILS # (AUTO) 0.1 10^3/uL (0.0-0.1); BASOPHILS % (AUTO) 0 % (0-10); EOSINOPHILS % (AUTO) 0 % (0-10); HEMATOCRIT 36 % (35-52); HEMOGLOBIN 13.2 G/DL (11.5-16.0); LYMPHOCYTES # (AUTO) 0.6 X 10^3 (1.0-4.0); LYMPHOCYTES % (AUTO) 2 % (12-44); MEAN CORPUSCULAR HEMOGLOBIN 31 PG (25-34); MEAN CORPUSCULAR HGB CONC 37 G/DL (32-36); MEAN CORPUSCULAR VOLUME 84 FL (80-99); MEAN PLATELET VOLUME 10.8 FL (7.4-10.4); MONOCYTES % (AUTO) 3 % (0-12); NEUTROPHILS # (AUTO) 33.6 X 10^3 (1.8-7.8); NEUTROPHILS % (AUTO) 95 % (42-75); PLATELET COUNT 235 10^3/uL (130-400); RED BLOOD COUNT 4.28 10^6/uL (4.35-5.85); RED CELL DISTRIBUTION WIDTH 14.4 % (10.0-14.5)
[2018-03-18 21:26] LABS: WHITE BLOOD COUNT 35.4 10^3/uL (4.3-11.0)
[2018-03-18 21:40] LABS: INR 1.3 (0.8-1.4); PROTHROMBIN TIME PATIENT 16.3 SEC (12.2-14.7)
[2018-03-18 21:43] LABS: ALANINE AMINOTRANSFERASE 8 U/L (0-55); ALBUMIN 2.7 GM/DL (3.2-4.5); ALKALINE PHOSPHATASE 135 U/L (40-136); BILIRUBIN,TOTAL 0.6 MG/DL (0.1-1.0); BUN/CREATININE RATIO 22; CALCIUM 8.6 MG/DL (8.5-10.1); CARBON DIOXIDE 16 MMOL/L (21-32); CHLORIDE 81 MMOL/L (98-107); CREATININE SERUM 4.01 MG/DL (0.60-1.30); GFR ESTIMATED 11; TOTAL PROTEIN 6.3 GM/DL (6.4-8.2)
[2018-03-18 21:45] LABS: BAND NEUTROPHILS 2 %; BASOPHILS % (MANUAL) 0 %; EOSINOPHILS % (MANUAL) 0 %; LYMPHOCYTES % (MANUAL) 2 %; MONOCYTES % (MANUAL) 4 %; NEUTROPHILS % (MANUAL) 92 %; PLATELET CLUMPS OCCASIONAL; RBC MORPH NORMAL
[2018-03-18 21:46] LABS: GLUCOSE 748 MG/DL (70-105); SODIUM 114 MMOL/L (135-145)
[2018-03-18 22:00] LABS: BILIRUBIN,URINE NEGATIVE (NEGATIVE); CLARITY,URINE VERY CLOUDY; COLOR,URINE YELLOW; GLUCOSE, URINE (UA) 4+ (NEGATIVE); KETONES,URINE NEGATIVE (NEGATIVE); LEUKOCYTE ESTERASE ,URINE 3+ (NEGATIVE); NITRITE,URINE NEGATIVE (NEGATIVE); PH,URINE 7 (5-9); PROTEIN,URINE 2+ (NEGATIVE); UROBILINOGEN,URINE NORMAL (NORMAL)
[2018-03-18 22:10] LABS: BACTERIA,URINE LARGE /HPF; SQUAMOUS EPITHELIAL CELL,UR 0-2 /HPF; WBC,URINE >100 /HPF
[2018-03-19 00:29] VITALS: BP 119/58
--- NOTE | 2018-03-19 09:56 | Diagnostic Imaging Report ---
PROCEDURE: CT head without contrast. TECHNIQUE: Multiple contiguous axial images were obtained through the brain without the use of intravenous contrast. INDICATION: Altered mental status. COMPARISON: 10/01/2017 FINDINGS: No hyperdense hemorrhage or space-occupying mass. No hydrocephalus or midline shift. Symmetric prominence of the ventricles and cortical sulci is compatible with age-appropriate atrophy. No isolated lobar atrophy. No territorial loss of arevalo-white matter differentiation to indicate acute/subacute infarct. Periventricular white matter hypoattenuation is stable and compatible with chronic microvascular ischemic disease. The mastoid air cells are clear. Paranasal sinuses are normal. No focal osseous abnormality of the calvarium. IMPRESSION: 1. No acute intracranial process. 2. Findings are in agreement with the preliminary report. Dictated by: Dictated on workstation # [id number]
--- NOTE | 2018-03-19 09:57 | Diagnostic Imaging Report ---
PROCEDURE: CT abdomen and pelvis without contrast. TECHNIQUE: Multiple contiguous axial images were obtained through the abdomen and pelvis without the use of intravenous contrast. INDICATION: Generalized abdominal pain with decreased p.o. intake. COMPARISON: None available. FINDINGS: Evaluation of the abdominal viscera is mildly limited without contrast. Lower chest: The lung bases are clear. No pericardial or pleural effusion. Peritoneum: No free intraperitoneal air or fluid. Liver and biliary system: Unenhanced liver is normal. The gallbladder is normal. No biliary duct dilation. Spleen and Pancreas: Spleen is normal. Unenhanced pancreas is grossly normal. Adrenals: Normal. tract: Nonobstructing 3 mm stone in the mid left kidney. No right renal calculi. No obstructive uropathy. The urinary bladder is decompressed by Frausto catheter. Uterus is likely surgically absent. No adnexal mass. GI tract: Stomach is partially distended with fluid and food debris and there is no discrete wall thickening allowing for incomplete distention. No bowel obstruction. No pericolonic inflammatory changes. Appendix is not seen with certainty, although there are no inflammatory changes in the right lower quadrant that would suggest acute appendicitis. Vasculature and Lymph nodes: Normal caliber aorta has extensive atherosclerotic plaquing present. No abdominal or pelvic lymphadenopathy. Musculoskeletal: No concerning osseous lesion. Subacute to chronic inferior endplate compression fracture of L1. IMPRESSION: 1. No acute obstructive or inflammatory process in the abdomen or pelvis. 2. Nonobstructing left renal stone. 3. Subacute to chronic inferior endplate compression fracture of L1. 4. Findings are in agreement with the preliminary report. Dictated by: Dictated on workstation # [id number]
--- NOTE | 2018-03-19 09:57 | Diagnostic Imaging Report ---
INDICATION: Generalized pain. COMPARISON: 10/17/2017. FINDINGS: Stable cardiomegaly with changes of CABG. The lungs are clear where seen. Posterior lower lobes are poorly evaluated per portable radiography. No pleural effusion or pneumothorax. IMPRESSION: No acute cardiopulmonary process by portable radiography. Dictated by: Dictated on workstation # [id number]
== END 2018-03-19 00:29 | disposition short-term general hospital (02) ==
LOC: EDUNIT# 20:46 → ER 20:47
DX: E11.01 Type 2 diabetes mellitus with hyperosmolarity with coma (principal); E11.65 Type 2 diabetes mellitus with hyperglycemia; N12 Tubulo-interstitial nephritis, not specified as acute or chronic; R65.20 Severe sepsis without septic shock; N17.9 Acute kidney failure, unspecified; J44.9 Chronic obstructive pulmonary disease, unspecified; I25.10 Atherosclerotic heart disease of native coronary artery without angina pectoris; I25.2 Old myocardial infarction; E78.00 Pure hypercholesterolemia, unspecified; G40.909 Epilepsy, unspecified, not intractable, without status epilepticus; K21.9 Gastro-esophageal reflux disease without esophagitis; E11.42 Type 2 diabetes mellitus with diabetic polyneuropathy; F41.9 Anxiety disorder, unspecified; F32.9 Major depressive disorder, single episode, unspecified; M81.0 Age-related osteoporosis without current pathological fracture; Z87.19 Personal history of other diseases of the digestive system; Z95.5 Presence of coronary angioplasty implant and graft; Z95.2 Presence of prosthetic heart valve; Z86.73 Personal history of transient ischemic attack (TIA), and cerebral infarction without residual deficits; Z80.49 Family history of malignant neoplasm of other genital organs; Z79.82 Long term (current) use of aspirin; Z79.4 Long term (current) use of insulin; Z98.890 Other specified postprocedural states; Z90.710 Acquired absence of both cervix and uterus
CPT/HCPCS: 36415; 51702; 70450; 71045; 74176; 80053; 81000; 82962; 83605; 83690; 84443; 84484; 85007; 85027; 85610; 85730; 87040; 87077; 87088; 87186; 93005; 96361; 96365; 96375

== ENCOUNTER 2018-04-18 18:53 | Inpatient (IN) | payer MEDICARE ==
[~2018-04-18] VITALS: Ht 170.2 cm; Wt 67.8 kg
[2018-04-18] MEDS ORDERED: NS IV 500 ML 500 ML IV ONE (19:00)
--- NOTE | 2018-04-18 19:07 | ED General ---
General Stated Complaint: WEAKNESS,LEGS TINGLING Source of Information: Patient Exam Limitations: No Limitations History of Present Illness Date Seen by Provider: Apr 18, 2018 Time Seen by Provider: 18:56 Initial Comments Here with report of global weakness but mostly in her legs. Complains of headache which is not uncommon for her. Overall this is been worsening over the last several days. Denies fever or chills. Denies nausea or vomiting. Denies diarrhea. Reports eating and drinking okay. Reports taking her meds as directed. Timing/Duration: 2-3 Days Severity: Moderate Associated Systoms: No Fever/Chills; Headaches; No Nausea/Vomiting; Shortness of Air, Weakness Allergies and Home Medications Allergies Coded Allergies: NKANo Known Allergies (Verified Allergy, Unknown, 04/27/13) Home Medications Aspirin 81 Mg Tablet.dr, 81 MG PO HS, (Reported) Atorvastatin Calcium 80 Mg Tablet, 80 MG PO HS, (Reported) Clopidogrel Bisulfate 75 Mg Tablet, 75 MG PO HS, (Reported) Gabapentin 300 Mg Capsule, 300 MG PO HS, (Reported) Guaifenesin/Dextromethorphan 5 Ml Syrup, 10 ML PO Q4H PRN for COUGH, (Reported) Insulin Glargine,Hum.rec.anlog 100 Unit/1 Ml Vial, 21 UNIT SQ HS Prescribed by: JOSE ELIAS KNAPP on 10/18/17927 Lisinopril 5 Mg Tablet, 2.5 MG PO DAILY Prescribed by: JERARDO SCHWARTZ on 10/18/17 09 Metoprolol Succinate 25 Mg Tab.er.24h, 12.5 MG PO DAILY Prescribed by: JERARDO SCHWARTZ on 10/18/17 09 Pantoprazole Sodium 40 Mg Tablet.dr, 40 MG PO DAILY, (Reported) Tramadol HCl 50 Mg Tablet, 50 MG PO TID PRN for PAIN-MODERATE, (Reported) Patient Home Medication List Home Medication List Reviewed: Yes Review of Systems Review of Systems Constitutional: see HPI; No chills, No fever; malaise, weakness EENTM: no symptoms reported Respiratory: No cough, No short of breath Cardiovascular: No chest pain; edema Gastrointestinal: No abdominal pain, No nausea, No vomiting Genitourinary: no symptoms reported Musculoskeletal: see HPI; No muscle pain; muscle weakness Skin: no symptoms reported Psychiatric/Neurological: Headache, Weakness All Other Systems Reviewed Negative Unless Noted: Yes Past Sthiaxx-Wksgny-Rkhsnx Hx Past Med/Social Hx: Reviewed Nursing Past Med/Soc Hx Patient Social History Alcohol Use: Denies Use Recreational Drug Use: No Smoking Status: Current Everyday Smoker Type Used: Cigarettes Recent Foreign Travel: No Contact w/Someone Who Travel: No Recent Hopitalizations: No Immunizations Up To Date Tetanus Booster (TDap): Unknown PED Vaccines UTD: No Date of Pneumonia Vaccine: Jun 02, 2011 Date of Influenza Vaccine: Apr 02, 2017 Seasonal Allergies Seasonal Allergies: No Past Medical History Surgeries: Yes Appendectomy, Cardiac, CABG, Section, Coronary Stent, Hysterectomy, Oophorectomy, Orthopedic Respiratory: Yes (NO HOME O2, CONTINUES TO SMOKE 1 PPD) COPD Currently Using CPAP: No Cardiac: Yes (MULTIPLE CARDIAC CATHS- MULTIPLE STENTS; CABG) Coronary Artery Disease, Heart Attack, High Cholesterol, Irregular Heartbeat Neurological: Yes Neuropathy, Seizure Disorder, TIA Reproductive Disorders: No Female Reproductive Disorders: Denies 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 ) Diabetes, Insulin dep HEENT: Yes Cataract Loss of Vision: Denies Hearing Impairment: Denies Cancer: No Psychosocial: Yes Anxiety, Depression Integumentary: No Blood Disorders: No Adverse Reaction/Blood Tranf: No Family Medical History Reviewed Nursing Family Hx FH: suicide FH: uterine cancer 19 MOTHER FHx: diabetes mellitus 19 MOTHER No Pertinent Family Hx Physical Exam Vital Signs Vital Signs - First Documented 04/18/18 04/18/18 18:56 21:47 Temp 96.4 Pulse 87 Resp 20 B/P (MAP) 117/58 (77) Pulse Ox 96 O2 Delivery Room Air Capillary Refill : Height, Weight, BMI Height: 5'7.00" Weight: 133lbs. 3.0oz. [id number]; 20.4 BMI Method:Stated General Appearance: No Apparent Distress, WD/WN HEENT: PERRL/EOMI, Pharynx Normal Neck: Non Tender, Supple Respiratory: Lungs Clear, Normal Breath Sounds Cardiovascular: Regular Rate, Rhythm, No Murmur Gastrointestinal: Non Tender, Soft Back: Normal Inspection, No CVA Tenderness, No Vertebral Tenderness Extremity: Normal Range of Motion, Non Tender, Pedal Edema (2+ to mid tibia bilateral) Neurologic/Psychiatric: Alert, Oriented x3 Skin: Normal Color, Warm/Dry Focused Exam Lactate Level 04/18/18 19:05: Lactic Acid Level 1.72 Lactic Acid Level Laboratory Tests Test 04/18/18 19:05 Lactic Acid Level 1.72 MMOL/L (0.50-2.00) Progress/Results/Core Measures Suspected Sepsis SIRS Temperature: Pulse: Respiratory Rate: Laboratory Tests 04/18/18 19:05: White Blood Count 9.7 Blood Pressure / Mean: 04/18/18 19:05: Lactic Acid Level 1.72 Laboratory Tests 04/18/18 19:05: Creatinine 2.95H, Platelet Count 342, Total Bilirubin 0.4 Results/Orders Lab Results Laboratory Tests Test 04/18/18 19:05 04/18/18 20:15 Range/Units White Blood Count 9.7 4.3-11.0 10^3/uL Red Blood Count 3.43 L 4.35-5.85 10^6/uL Hemoglobin 10.5 L 11.5-16.0 G/DL Hematocrit 30 L 35-52 % Mean Corpuscular Volume 86 80-99 FL Mean Corpuscular Hemoglobin 31 25-34 PG Mean Corpuscular Hemoglobin Concent 36 32-36 G/DL Red Cell Distribution Width 15.4 H 10.0-14.5 % Platelet Count 342 130-400 10^3/uL Mean Platelet Volume 8.9 7.4-10.4 FL Neutrophils (%) (Auto) 73 42-75 % Lymphocytes (%) (Auto) 18 12-44 % Monocytes (%) (Auto) 9 0-12 % Eosinophils (%) (Auto) 1 0-10 % Basophils (%) (Auto) 0 0-10 % Neutrophils # (Auto) 7.0 1.8-7.8 X 10^3 Lymphocytes # (Auto) 1.7 1.0-4.0 X 10^3 Monocytes # (Auto) 0.9 0.0-1.0 X 10^3 Eosinophils # (Auto) 0.1 0.0-0.3 10^3/uL Basophils # (Auto) 0.0 0.0-0.1 10^3/uL Sodium Level 124 *L 135-145 MMOL/L Potassium Level 4.8 3.6-5.0 MMOL/L Chloride Level 91 L 98-107 MMOL/L Carbon Dioxide Level 21 21-32 MMOL/L Anion Gap 12 5-14 MMOL/L Blood Urea Nitrogen 16 7-18 MG/DL Creatinine 2.95 H 0.60-1.30 MG/DL Estimat Glomerular Filtration Rate 16 BUN/Creatinine Ratio 5 Glucose Level 167 H 70-105 MG/DL Lactic Acid Level 1.72 0.50-2.00 MMOL/L Calcium Level 8.5 8.5-10.1 MG/DL Corrected Calcium 9.1 8.5-10.1 MG/DL Total Bilirubin 0.4 0.1-1.0 MG/DL Aspartate Amino Transf (AST/SGOT) 24 5-34 U/L Alanine Aminotransferase (ALT/SGPT) 27 0-55 U/L Alkaline Phosphatase 109 40-136 U/L C-Reactive Protein High Sensitivity 1.57 H 0.00-0.50 MG/DL Total Protein 7.5 6.4-8.2 GM/DL Albumin 3.2 3.2-4.5 GM/DL Urine Color YELLOW Urine Clarity SLIGHTLY CLOUDY Urine pH 6 5-9 Urine Specific [place] 1.010 L 1.016-1.022 Urine Protein 2+ H NEGATIVE Urine Glucose (UA) NEGATIVE NEGATIVE Urine Ketones NEGATIVE NEGATIVE Urine Nitrite NEGATIVE NEGATIVE Urine Bilirubin NEGATIVE NEGATIVE Urine Urobilinogen NORMAL NORMAL MG/DL Urine Leukocyte Esterase 3+ H NEGATIVE Urine RBC (Auto) 3+ H NEGATIVE Urine RBC 2-5 H /HPF Urine WBC 25-50 H /HPF Urine Crystals NONE /LPF Urine Bacteria FEW H /HPF Urine Casts NONE /LPF Urine Mucus NEGATIVE /LPF Urine Culture Indicated YES Micro Results Microbiology 04/18/18 Influenza Types A,B Antigen (ESTUARDO) - Final, Complete My Orders Orders - DEDE LYNCH MD Cbc With Automated Diff (04/18/18 19:00) Comprehensive Metabolic Panel (04/18/18 19:00) Hs C Reactive Protein (04/18/18 19:00) Lactic Acid Analyzer (04/18/18 19:00) Ua Culture If Indicated (04/18/18 19:00) Blood Culture (04/18/18 19:00) Influenza A And B Antigens (04/18/18 19:00) Saline Lock/Iv-Start (04/18/18 19:00) Ns Iv 500 Ml (Sodium Chloride 0.9%) (04/18/18 19:00) Chest 1 View, Ap/Pa Only (04/18/18 19:00) Urine Culture (04/18/18 20:15) Ceftriaxone For Iv Use (Rocephin For I (04/18/18 21:15) Tramadol Tablet (Ultram Tablet) (04/18/18 21:07) Medications Given in ED Current Medications Medications Dose Ordered Sig/Roman Route Start Time Stop Time Status Last Admin Dose Admin Ceftriaxone Sodium 1000 mg/ Sodium Chloride 60 ml @ 100 mls/hr ONCE ONCE IV 04/18/18 21:15 04/18/18 21:50 DC 04/18/18 21:29 100 MLS/HR Sodium Chloride 500 ml @ 0 mls/hr Q0M ONCE IV 04/18/18 19:00 04/18/18 19:02 DC 04/18/18 19:18 500 MLS/HR Vital Signs/I&O 04/18/18 04/18/18 18:56 21:47 Temp 96.4 97.8 Pulse 87 84 Resp 20 20 B/P (MAP) 117/58 (77) 99/79 Pulse Ox 96 95 O2 Delivery Room Air Capillary Refill : Progress Note : Progress Note Seen and evaluated. IV, labs, UA, chest x-ray, blood cultures and lactic acid ordered. I did review history from one month ago when patient was seen and found acute renal insufficiency and DKA. Blood sugars per EMS her in the 200s currently. Normal saline 500 mL bolus ordered. Monitor patient. UA via straight catheter. UTI noted as well as hyponatremia. Patient will required admission especially in the setting of chronic renal failure and uncontrolled diabetes. I did discuss this with Dr. Siegel 352 and he accepts patient for admission, inpatient status. Rocephin 1 g IV ordered. Findings concerns discussed with patient and she agrees with plan. Patient has had diarrhea so we will get stool cultures and C. difficile evaluation when she is able to give stool sample. We will request outside records to see if pleural effusion is chronic. She had admission last month due to renal failure at an outside facility. Diagnostic Imaging Diagonstic Imaging: Xray Plain Films/CT/US/NM/MRI: chest Comments NAME: DEBORA GARCIA [facility] REC#: [id number] PT STATUS: REG ER : 1940 PHYSICIAN: DEDE LYNCH MD ADMIT DATE: 04/18/18/ER Signed Date of Exam: 04/18/18 CHEST 1 VIEW, AP/PA ONLY INDICATION: Weakness. Multiple falls Upright chest shows mild cardiomegaly with normal vascularity. There is right basilar atelectasis with a right-sided effusion. There is fluid in the costophrenic angle as well as in the minor fissure. There is no effusion on the left. There is no pneumothorax. There are changes of prior CABG. No acute bony abnormality is seen. IMPRESSION: Since 03/18/2018, there has developed a right-sided pleural effusion with right basilar atelectasis. Dictated by: Dictated on workstation # [id number] Dict: 04/18/181914 Trans: 04/18/181919 Interpreted by: LORAINE RIGGINS MD Electronically signed by: LORAINE RIGGINS MD 04/18/181919 Departure Communication (Admissions) Time/Spoke to Admitting Phy: 21:15 Impression Primary Impression: Urinary tract infection Qualified Codes: N30.00 - Acute cystitis without hematuria Additional Impressions: Hyponatremia Dehydration Chronic renal failure Qualified Codes: N18.9 - Chronic kidney disease, unspecified Uncontrolled diabetes mellitus Qualified Codes: E11.65 - Type 2 diabetes mellitus with hyperglycemia Disposition: ADMITTED INPATIENT Condition: Stable Admissions Decision to Admit Reason: Admit from ER (General) Decision to Admit/Date: Apr 18, 2018 Time/Decision to Admit Time: 21:15 Departure-Patient Inst. Referrals: MERRICK SIEGEL DO (PCP) Primary Care Physician DEDE LYNCH MD Apr 18, 2018 19:07
[2018-04-18 19:14] LABS: BASOPHILS % (AUTO) 0 % (0-10); EOSINOPHILS # (AUTO) 0.1 10^3/uL (0.0-0.3); EOSINOPHILS % (AUTO) 1 % (0-10); HEMATOCRIT 30 % (35-52); HEMOGLOBIN 10.5 G/DL (11.5-16.0); LYMPHOCYTES # (AUTO) 1.7 X 10^3 (1.0-4.0); LYMPHOCYTES % (AUTO) 18 % (12-44); MEAN CORPUSCULAR HEMOGLOBIN 31 PG (25-34); MEAN CORPUSCULAR HGB CONC 36 G/DL (32-36); MEAN CORPUSCULAR VOLUME 86 FL (80-99); MEAN PLATELET VOLUME 8.9 FL (7.4-10.4); MONOCYTES # (AUTO) 0.9 X 10^3 (0.0-1.0); MONOCYTES % (AUTO) 9 % (0-12); NEUTROPHILS % (AUTO) 73 % (42-75); PLATELET COUNT 342 10^3/uL (130-400); RED BLOOD COUNT 3.43 10^6/uL (4.35-5.85); RED CELL DISTRIBUTION WIDTH 15.4 % (10.0-14.5); WHITE BLOOD COUNT 9.7 10^3/uL (4.3-11.0)
--- NOTE | 2018-04-18 19:20 | Diagnostic Imaging Report ---
INDICATION: Weakness. Multiple falls Upright chest shows mild cardiomegaly with normal vascularity. There is right basilar atelectasis with a right-sided effusion. There is fluid in the costophrenic angle as well as in the minor fissure. There is no effusion on the left. There is no pneumothorax. There are changes of prior CABG. No acute bony abnormality is seen. IMPRESSION: Since 03/18/2018, there has developed a right-sided pleural effusion with right basilar atelectasis. Dictated by: Dictated on workstation # [id number]
[2018-04-18 19:34] LABS: ALBUMIN 3.2 GM/DL (3.2-4.5); BILIRUBIN,TOTAL 0.4 MG/DL (0.1-1.0); CALCIUM 8.5 MG/DL (8.5-10.1); CREATININE SERUM 2.95 MG/DL (0.60-1.30); POTASSIUM 4.8 MMOL/L (3.6-5.0); TOTAL PROTEIN 7.5 GM/DL (6.4-8.2)
[2018-04-18 20:23] LABS: BILIRUBIN,URINE NEGATIVE (NEGATIVE); CLARITY,URINE SLIGHTLY CLOUDY; COLOR,URINE YELLOW; GLUCOSE, URINE (UA) NEGATIVE (NEGATIVE); KETONES,URINE NEGATIVE (NEGATIVE); LEUKOCYTE ESTERASE ,URINE 3+ (NEGATIVE); NITRITE,URINE NEGATIVE (NEGATIVE); PH,URINE 6 (5-9); PROTEIN,URINE 2+ (NEGATIVE); UROBILINOGEN,URINE NORMAL (NORMAL)
[2018-04-18 20:30] LABS: BACTERIA,URINE FEW /HPF; WBC,URINE 25-50 /HPF
[2018-04-18] MEDS ORDERED: cefTRIAXone FOR IV USE 1,000 MG in NS (IVPB) 50 ML IV ONE (21:15)
[2018-04-18 22:15] VITALS: BP 117/58
[2018-04-18] MEDS ORDERED: CATHETER FLUSH 10 ML SYR IV PRN (22:45)
[2018-04-18] MEDS ORDERED: RT-ALBUTEROL/IPRATROPIUM 3 ML (DUONEB) VIAL INH PRN (23:00)
[2018-04-18] MEDS: NS IV 1000 ML 1,000 ML IV SCH (23:21)
[2018-04-19 00:07] VITALS: BP 112/62
[2018-04-19 04:12] VITALS: BP 117/66
[2018-04-19] MEDS: CATHETER FLUSH 10 ML SYR IV SCH ×3 (05:41→20:10)
[2018-04-19 05:48] LABS: BASOPHILS % (AUTO) 0 % (0-10); EOSINOPHILS # (AUTO) 0.1 10^3/uL (0.0-0.3); EOSINOPHILS % (AUTO) 1 % (0-10); HEMATOCRIT 30 % (35-52); HEMOGLOBIN 9.7 G/DL (11.5-16.0); LYMPHOCYTES # (AUTO) 1.8 X 10^3 (1.0-4.0); LYMPHOCYTES % (AUTO) 21 % (12-44); MEAN CORPUSCULAR HEMOGLOBIN 30 PG (25-34); MEAN CORPUSCULAR HGB CONC 33 G/DL (32-36); MEAN CORPUSCULAR VOLUME 90 FL (80-99); MEAN PLATELET VOLUME 9.6 FL (7.4-10.4); MONOCYTES % (AUTO) 12 % (0-12); NEUTROPHILS # (AUTO) 5.8 X 10^3 (1.8-7.8); NEUTROPHILS % (AUTO) 67 % (42-75); PLATELET COUNT 300 10^3/uL (130-400); RED BLOOD COUNT 3.27 10^6/uL (4.35-5.85); RED CELL DISTRIBUTION WIDTH 15.8 % (10.0-14.5); WHITE BLOOD COUNT 8.7 10^3/uL (4.3-11.0)
[2018-04-19 06:13] LABS: ALBUMIN 2.7 GM/DL (3.2-4.5); BILIRUBIN,TOTAL 0.3 MG/DL (0.1-1.0); CALCIUM 8.1 MG/DL (8.5-10.1); CREATININE SERUM 2.8 MG/DL (0.60-1.30); POTASSIUM 4.1 MMOL/L (3.6-5.0); TOTAL PROTEIN 6.3 GM/DL (6.4-8.2)
[2018-04-19] MEDS: RT-ALBUTEROL/IPRATROPIUM 3 ML (DUONEB) VIAL INH SCH ×4 (07:07→19:51)
[2018-04-19] MEDS ORDERED: FLU QUADRIvalent (5+ YOA) 2018-2019 (AFLURIA) 0.5 ML IM ONE (07:15)
--- NOTE | 2018-04-19 07:49 | History & Physicial ---
History of Present Illness History of Present Illness Reason for visit/HPI Patient came out to the emergency room due to weakness. Patient not able to walk around. Has weakness in the legs and keeps on falling. Ration sodium 126. GFR is 16 for renal insufficiency. Patient has a right pleural effusion. Patient has a UTI. Patient having severe headaches which is new. One month ago patient had acute renal insufficiency and diabetic ketoacidosis and was transferred to [facility] Patient admits to [facility] Date of Admission Apr 18, 2018 at 21:19 Time Seen by a Provider: 07:44 I consulted on this patient on 04/19/18 07:36 Attending Physician Merrick Siegel DO Admitting Physician Merrick Siegel DO Consult Allergies and Home Medications Allergies Coded Allergies: NKANo Known Allergies (Verified Allergy, Unknown, 04/27/13) Home Medications Aspirin 81 Mg Tablet.dr, 81 MG PO HS, (Reported) Atorvastatin Calcium 80 Mg Tablet, 80 MG PO HS, (Reported) Clopidogrel Bisulfate 75 Mg Tablet, 75 MG PO HS, (Reported) Gabapentin 300 Mg Capsule, 300 MG PO HS, (Reported) Guaifenesin/Dextromethorphan 5 Ml Syrup, 10 ML PO Q4H PRN for COUGH, (Reported) Insulin Glargine,Hum.rec.anlog 100 Unit/1 Ml Vial, 21 UNIT SQ HS Prescribed by: JOSE ELIAS KNAPP on 10/18/17927 Lisinopril 5 Mg Tablet, 2.5 MG PO DAILY Prescribed by: JERARDO SCHWARTZ on 10/18/17 09 Metoprolol Succinate 25 Mg Tab.er.24h, 12.5 MG PO DAILY Prescribed by: JERARDO SCHWARTZ on 10/18/17900 Pantoprazole Sodium 40 Mg Tablet.dr, 40 MG PO DAILY, (Reported) Tramadol HCl 50 Mg Tablet, 50 MG PO TID PRN for PAIN-MODERATE, (Reported) Patient Home Medication List Home Medication List Reviewed: No Past Qnsjpon-Vurvin-Gsuyzv Hx Patient Social History Marrital Status: Employed/Student: retired Alcohol Use: Denies Use Recreational Drug Use: No Smoking Status: Current Everyday Smoker Type Used: Cigarettes Physical Abuse Screen: No Sexual Abuse: No Recent Foreign Travel: No Contact w/other who traveled: No Recent Hopitalizations: No Recent Infectious Disease Expo: No Immunizations Up To Date Tetanus Booster (TDap): Unknown Pediatric: No Date of Pneumonia Vaccine: Jun 02, 2011 Date of Influenza Vaccine: Apr 02, 2017 Seasonal Allergies Seasonal Allergies: No Surgeries Yes Appendectomy, Cardiac, CABG, Section, Coronary Stent, Hysterectomy, Oophorectomy, Orthopedic Respiratory Yes (NO HOME O2, CONTINUES TO SMOKE 1 PPD) COPD Currently Using CPAP: No Cardiovascular Yes (MULTIPLE CARDIAC CATHS- MULTIPLE STENTS; CABG) Coronary Artery Disease, Heart Attack, High Cholesterol, Irregular Heartbeat Neurological Yes Neuropathy, Seizure Disorder, TIA Reproductive System Hx Reproductive Disorders: No Sexually Transmitted Disease: No HIV/AIDS: No Female Reproductive Disorders: 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 ) Endocrine Disorders: Diabetes, Insulin dep HEENT History of HEENT Disorders: Yes HEENT Disorders: Cataract Loss of Vision: Denies Hearing Impairment: Denies Cancer No Psychosocial History of Psychiatric Problem: Yes Behavioral Health Disorders: Anxiety, Depression Integumentary History of Skin or Integumenta: No Blood Transfusions History of Blood Disorders: No Adverse Reaction to a Blood Tr: No Family Medical History Significant Family History: No Pertinent Family Hx Family Hx: FH: suicide FH: uterine cancer 19 MOTHER FHx: diabetes mellitus 19 MOTHER Review of Systems Constitutional: malaise, weakness, other EENTM: no symptoms reported Respiratory: short of breath Cardiovascular: Hx of Intervention Gastrointestinal: no symptoms reported Genitourinary: no symptoms reported Physical Exam Vital Signs Vital Signs - First Documented 04/18/18 04/18/18 04/18/18 18:56 21:47 22:45 Temp 96.4 Pulse 87 Resp 20 B/P (MAP) 117/58 (77) Pulse Ox 96 O2 Delivery Room Air FiO2 21 Capillary Refill : Less Than 3 Seconds Height, Weight, BMI Height: 5'7.00" Weight: 149lbs. 6.0oz. 67.391167uc; 23.4 BMI Method:Stated General Appearance: No Apparent Distress, Thin Eyes: Bilateral Eye Normal Inspection HEENT: Normal ENT Inspection Neck: Full Range of Motion, Normal Inspection Respiratory: No Accessory Muscle Use, No Respiratory Distress, Decreased Breath Sounds Cardiovascular: Regular Rate, Rhythm, No Murmur Gastrointestinal: Non Tender, Soft Assessment/Plan Assessment and Plan UTI. Hyponatremia. Renal insufficiency. Diabetes. Four-sharron. Severe headache new.. CAD. Previous IA. Admission Diagnosis Admission Status: Inpatient Order (span 2 midnights) Reason for Inpatient Admission: Weakness. UTI. 4 living. Renal insufficiency. Hyponatremia. Coronary artery disease. Diabetes Clinical Quality Measures DVT/VTE Risk/Contraindication: Risk Factor Score Per Nursin RFS Level Per Nursing on Admit: 2=Moderate MERRICK SIEGEL DO Apr 19, 2018 07:49
[2018-04-19 08:00] VITALS: BP 114/72
[2018-04-19] MEDS: inSUlin ASPART (NovoLOG) 1 UNIT/0.01 ML (CHARGE PER UNIT) SC SCH ×4 (08:40→20:10)
[2018-04-19] MEDS ORDERED: LISI-556 PO (09:06)
[2018-04-19] MEDS ORDERED: METO-387 PO (09:06)
[2018-04-19] MEDS: NS IV 1000 ML 1,000 ML IV SCH ×3 (09:47→20:16)
--- NOTE | 2018-04-19 10:10 | Diagnostic Imaging Report ---
CLINICAL INDICATION: Patient with severe headache onset recently. Patient is status post fall. EXAM: Axial CT scan of the brain performed without IV contrast. COMPARISON: Head CT without IV contrast dated 03/18/2018. FINDINGS: There is no evidence of acute cerebral infarct, intracranial hemorrhage, or gross mass effect. The brain parenchymal volume appears appropriate for patient's age. Again seen patchy and confluent areas of low-attenuation white matter changes in both cerebral hemispheres, likely representing chronic small vessel ischemic disease. There is normal arevalo-white matter distinction. There is no significant midline shift or herniation. There is no evidence of hydrocephalus. The basal cisterns are unremarkable. The skull, extracranial soft tissue, and orbits are unremarkable. There is mild ethmoid sinus disease. Temporal bones show no significant abnormality. IMPRESSION: 1: Stable CT scan of brain with no evidence of interval acute intracranial process. 2: Stable age-related brain parenchymal changes with chronic small vessel ischemic disease. Dictated by: Dictated on workstation # [id number]
[2018-04-19] MEDS: HYDROcodone/APAP 5 MG/325 MG (LORTAB) TAB PO PRN (11:03)
--- NOTE | 2018-04-19 11:47 | Physical Therapy Evaluation ---
PT Evaluation-General Medical Diagnosis Admission Date Apr 18, 2018 at 21:19 Medical Diagnosis: UTI/hyponatremia Onset Date: Apr 18, 2018 Therapy Diagnosis Therapy Diagnosis: generalized weakness/debility Height/Weight Height (Feet): 5 Height (Inches): 7.00 Weight (Pounds): 149 Weight (Ounces): 6.0 Precautions Precautions/Isolations: Fall Prevention, Contact/Enteric Isolation Weight Bear Status Right Lower Extremity: Right Full Weight Bearing Left Lower Extremity: Left Full Weight Bearing Referral Physician: Lexii Reason for Referral: Evaluation/Treatment Medical History Pertinent Medical History: CABG, CAD, COPD, DM, HTN, Neuropathy, Smoking Current History ED with DANIELLE and weakness Reviewed History: Yes Social History Home: Multilevel Current Living Status: Friend Entry Into Home: Stairs With Railing Prior/Core FIM Prior Level of Function Functional [place] Measure 0=Not Assessed/NA 4=Minimal Assistance 1=Total Assistance 5=Supervision or Setup 2=Maximal Assistance 6=Modified [place] 3=Moderate Assistance 7=Complete IndependenceIRFPAI Quality Coding Scale 6 Independent with activity with or without an assistive device 5 Patient requires set up or clean up by helper. Patient completes activity by themselves 4 Supervision or touching assist (CGA). [place] provide cues , steadying assist 3 The helper provides less than half the effort to complete the activity 2 The helper provides more than half the effort to complete the activity 1 Dependent. The helper does all the effort to complete an activity 7 Patient refused to complete or attempt activity 9 The patient did not perform the activity before the current illness or injury 88 Not attempted due to Medical conditions or safety concerns Bed Mobility: 6 Transfers (B,C,W/C) (FIM): 6 Gait: 6 PT Evaluation-Current Subjective Reluctantly agrees to PT. Pain Numeric Pain Scale: 0-No Pain Location: No Pain Reported Objective Patient Orientation: Normal For Age Problem Solving: Fair Attachments: IV ROM/Strength ROM Lower Extremities bilateral LE WFL Strength Lower Extremities 3/5 grossly bilaterally Integumentary/Posture Integumentary refer to nursing notes Bowel Incontinence: Yes Posture WFL Neuromuscular (Tone, Coordination, Reflexes) slight ataxia Sensory Vision: Wears Glasses Hearing: Functional Sensation Left Lower Extremity: Impaired Transfers Functional [place] Measure 0=Not Assessed/NA 4=Minimal Assistance 1=Total Assistance 5=Supervision or Setup 2=Maximal Assistance 6=Modified [place] 3=Moderate Assistance 7=Complete [place] Transfers (B, C, W/C) (FIM): 4 Scootin Rollin Supine to/from Sit: 5 Sit to/from Stand: 4 Gait Mode of Locomotion: Walk Anticipated Mode of Locomotion: Walk Gait (FIM): 2 Distance: 80' Gait Level of Assist: 4 Gait Persons Needed: 1 Gait Assistive Device: FWW Comments/Gait Description diminished coordination due to weakness/WBOS Balance Sitting Static: Normal Sitting Dynamic: Normal Standing Static: Fair Standing Dynamic: Fair Assessment/Needs 77 y.o. female, will benefit from skilled PT to address functional strength and mobility to improve current LOF and to safely return to home with spouse at maximum LOF. Patient demonstrates bilateral LE weakness with all mobility. Rehab Potential: Fair PT Fireworks Assembler Goals Fireworks Assembler Goals PT Fireworks Assembler Goals Time Frame: Apr 30, 2018 Transfers (B,C,W/C) (FIM): 6 Gait (FIM): 6 Gait distance (FIM): 3=150 ft Distance: 175' Gait Level of Assist: 6 Gait Assistive Device: FWW PT Plan Problem List Problem List: Activity Tolerance, Functional Strength, Safety, Balance, Gait, Transfer, Bed Mobility Treatment/Plan Treatment Plan: Continue Plan of Care Treatment Plan: Bed Mobility, Education, Functional Activity Karen, Functional Strength, Gait, Safety, Therapeutic Exercise, Transfers Treatment Duration: Apr 30, 2018 Frequency: 6 times per week Estimated Hrs Per Day: .25 hour per day Patient and/or Family Agrees t: Yes Time/GCodes Time In: 1115 Time Out: 1125 Total Billed Treatment Time: 10 Total Billed Treatment 1 visit EVLowC 10 min G Codes Necessary: ERASTO Lopez PT Apr 19, 2018 11:47
[2018-04-19 12:00] VITALS: BP 114/74
[2018-04-19 16:10] VITALS: BP 120/57
[2018-04-19 19:52] VITALS: BP 137/67
[2018-04-19] MEDS ORDERED: cefTRIAXone 1 GM/NS 50 ML IVPB IV SCH ×2 (21:00)
[2018-04-20] VITALS: BP 132/67
[2018-04-20] MEDS: CATHETER FLUSH 10 ML SYR IV SCH (02:00)
[2018-04-20 04:00] VITALS: BP 121/58
[2018-04-20] MEDS: inSUlin ASPART (NovoLOG) 1 UNIT/0.01 ML (CHARGE PER UNIT) SC SCH ×2 (05:44→11:50)
[2018-04-20] MEDS: NS IV 1000 ML 1,000 ML IV SCH (06:55)
[2018-04-20] MEDS: RT-ALBUTEROL/IPRATROPIUM 3 ML (DUONEB) VIAL INH SCH ×2 (06:59→11:28)
--- NOTE | 2018-04-20 07:27 | Diagnostic Imaging Report ---
INDICATION: Pleural effusion. Comparison with 04/18/2018. FINDINGS: Moderate right pleural effusion is present. There has been slight increase in left pleural effusion. Heart remains enlarged with median sternotomy changes. Pulmonary venous congestion is again noted. IMPRESSION: 1. Increasing pulmonary venous congestion with increasing bilateral pleural effusions since previous exam. Dictated by: Dictated on workstation # [id number]
--- NOTE | 2018-04-20 07:54 | Progress Note (SOAP) ---
Subjective Time Seen by a Provider: 07:51 Subjective/Events-last exam Patient still not feeling good. Patient has weakness. Patient has gait problems and falls. Renal insufficiency. Coronary artery disease. Diabetes. UTI. Weakness. Patient has crackles and lower lungs Pleural effusion getting worse Focused Exam Lactate Level 04/18/18 19:05: Lactic Acid Level 1.72 Objective Exam Vital Signs Date Time Temp Pulse Resp B/P (MAP) Pulse Ox O2 Delivery O2 Flow Rate FiO2 04/20/18 06:59 92 Room Air 04/20/18 04:00 97.7 90 16 121/58 (79) 94 Room Air 04/20/18 00:00 98.2 94 18 132/67 (88) 95 Room Air 04/19/18 20:00 Room Air 04/19/18 19:52 96.0 90 12 137/67 (90) 94 Room Air 04/19/18 19:51 93 Room Air 04/19/18 16:10 97.0 92 20 120/57 (78) 96 Room Air 04/19/18 14:33 93 Room Air 04/19/18 12:00 97.1 87 18 114/74 (87) 95 Room Air 04/19/18 11:35 97.3 04/19/18 10:46 93 Room Air 04/19/18 08:00 97.3 92 16 114/72 (86) 96 Room Air 04/19/18 08:00 96 Room Air I & O 04/20/18 07:00 Intake Total 2950 ml Output Total 950 ml Balance 2000 ml Capillary Refill : Less Than 3 Seconds General Appearance: No Apparent Distress, Thin HEENT: Normal ENT Inspection Neck: Full Range of Motion, Normal Inspection Respiratory: No Accessory Muscle Use, No Respiratory Distress, Crackles Cardiovascular: Regular Rate, Rhythm, No Murmur Gastrointestinal: non tender, soft Results Lab Laboratory Tests 04/19/18 11:14: Glucometer 159H 04/19/18 15:05: Glucometer 198H 04/19/18 19:53: Glucometer 183H 04/20/18 05:32: Glucometer 146H Microbiology 04/18/18 Blood Culture - Preliminary, Resulted No growth 04/18/18 C. difficile GDH Antigen & Toxins - Final, Complete 04/18/18 Influenza Types A,B Antigen (ESTUARDO) - Final, Complete Assessment/Plan Assessment/Plan Assess & Plan/Chief Complaint Weakness. Falling. Stable gait. Renal insufficiency. UTI. Diabetes. Coronary artery disease. Patient still not feeling well. Pleural effusion Clinical Quality Measures Admission Status Admission Dx UTI. Hyponatremia. Renal insufficiency. Diabetes. Four-sharron. Severe headache new.. CAD. Previous TX. DVT/VTE Risk/Contraindication: Risk Factor Score Per Nursin RFS Level Per Nursing on Admit: 2=Moderate Contraindications-Pharm: Other *list below* MERRICK SIEGEL DO Apr 20, 2018 07:54
[2018-04-20 08:00] VITALS: BP 106/63
[2018-04-20 08:28] LABS: BASOPHILS % (AUTO) 0 % (0-10); EOSINOPHILS % (AUTO) 0 % (0-10); HEMATOCRIT 28 % (35-52); HEMOGLOBIN 9.5 G/DL (11.5-16.0); LYMPHOCYTES # (AUTO) 1.1 X 10^3 (1.0-4.0); LYMPHOCYTES % (AUTO) 11 % (12-44); MEAN CORPUSCULAR HEMOGLOBIN 30 PG (25-34); MEAN CORPUSCULAR HGB CONC 34 G/DL (32-36); MEAN CORPUSCULAR VOLUME 90 FL (80-99); MEAN PLATELET VOLUME 9.4 FL (7.4-10.4); MONOCYTES # (AUTO) 0.8 X 10^3 (0.0-1.0); MONOCYTES % (AUTO) 9 % (0-12); NEUTROPHILS # (AUTO) 7.7 X 10^3 (1.8-7.8); NEUTROPHILS % (AUTO) 80 % (42-75); PLATELET COUNT 274 10^3/uL (130-400); RED BLOOD COUNT 3.13 10^6/uL (4.35-5.85); RED CELL DISTRIBUTION WIDTH 15.8 % (10.0-14.5); WHITE BLOOD COUNT 9.6 10^3/uL (4.3-11.0)
[2018-04-20 08:46] LABS: CALCIUM 8.1 MG/DL (8.5-10.1); CREATININE SERUM 2.25 MG/DL (0.60-1.30); POTASSIUM 4.4 MMOL/L (3.6-5.0)
--- NOTE | 2018-04-20 09:57 | Consultation-Cardiology ---
HPI-Cardiology Cardiology Consultation: Date of Consultation 04/20/18 Time Seen by a Provider: 09:50 Date of Admission 04-18-18 Attending Physician Merrick Siegel DO Admitting Physician Merrick Siegel DO Consulting Physician JERARDO GILLIS HPI: Chief Complaint: Elevated BNP Ms. Aaron is a 77 year old female admitted to [facility] from the ED with c/o increasing weakness, shortness of breath and frequent falls. She is not a good historian. She lives at home with her spouse and grand daughter. Her grand daughter is at the bedside. Over the last few days she has progressive weakness where she feels her legs give out and she has been falling at home. They report she has also been more short of breath. They report she has had worsening bilat LE edema which does improve somewhat with elevation, but never resolves. She denies any CP, palpitations, syncope or near syncope. She has been having some lose stools. She continues to smoke cigs Review of Systems-Cardiology Review of Systems Constitutional: No chills, No fever; malaise, tiredness Eyes: No vision change Ears/Nose/Throat: no symptoms reported Respiratory: As described under HPI Cardiovascular: As described under HPI Gastrointestinal: diarrhea Genitourinary: no symptoms reported Musculoskeletal: other (generalized weakness) Skin: No rash, No ulcerations Psychiatric/Neurological: No syncope Hematologic: No bleeding abnormalities All Other Systems Reviewed Negative Unless Noted: Yes [id number] Hx Patient Social History Marrital Status: Employed/Student: retired Alcohol Use: Denies Use Recreational Drug Use: No Smoking Status: Current Everyday Smoker Type Used: Cigarettes Recent Foreign Travel: No Recent Infectious Disease Expo: No Hospitalization with Isolation: Denies Physical Abuse Screen: No Sexual Abuse: No Immunizations Up To Date Tetanus Booster (TDap): Unknown Date of Pneumonia Vaccine: Jun 02, 2011 Date of Influenza Vaccine: Apr 02, 2017 Past Medical History PMH As described under Assessment. Family Medical History Family Medical History: She reports no family h/o CAD, stroke or SCD. Family History: FH: suicide FH: uterine cancer 19 MOTHER FHx: diabetes mellitus 19 MOTHER Allergies and Home Medications Allergies Coded Allergies: NKANo Known Allergies (Verified Allergy, Unknown, 04/27/13) Home Medications Aspirin 81 Mg Tablet.dr, 81 MG PO HS, (Reported) Atorvastatin Calcium 80 Mg Tablet, 80 MG PO HS, (Reported) LAST FILLED #60 12-02-17 Clopidogrel Bisulfate 75 Mg Tablet, 75 MG PO HS, (Reported) LAST FILLED #30 12-02-17 Gabapentin 300 Mg Capsule, 300 MG PO BID, (Reported) LAST FILLED #60 18 Guaifenesin/Dextromethorphan 5 Ml Syrup, 10 ML PO Q4H PRN for COUGH, (Reported) Guaifenesin/Dextromethorphan 5 Ml Syrup, 10 ML PO Q4H PRN for COUGH, (Reported) Lisinopril 5 Mg Tablet, 2.5 MG PO DAILY, (Reported) LAST FILLED #30 02-03-18 TAKES 1/2 (5MG) TABLET Metoprolol Succinate 25 Mg Tab.er.24h, 12.5 MG PO DAILY, (Reported) LAST FILLED #30 02-03-18 TAKES 1/2 (25MG) TABLET Tramadol HCl 50 Mg Tablet, 50 MG PO TID PRN for PAIN-MODERATE, (Reported) Tramadol HCl 50 Mg Tablet, 50 MG PO TID PRN for PAIN-MODERATE, (Reported) Patient Home Medication List Home Medication List Reviewed: Yes Physical Exam-Cardiology Physical Exam Vital Signs/I&O Capillary Refill : Less Than 3 Seconds Constitutional: AAO x 3, well-developed, well-nourished HEENT: PERRL, hearing is well preserved Neck: No carotid bruit Respiratory: No accessory muscle use, No respiratory distress; chest expansion is symmetric, chest is bilaterally symmetric, rhonchi (scattered; prolonged expiratory phase) Cardiovascular: regular rate-rhythm, JVD (5 cm) Gastrointestinal: No tender; soft, audible bowel sounds Rectal: deferred Extremities: significant edema (bilat 2 (+) LE edema) Neurologic/Psychiatric: grossly intact Skin: No rash, No ulcerations Data Review Labs Microbiology 04/18/18 Blood Culture - Preliminary, Resulted No growth 04/18/18 C. difficile GDH Antigen & Toxins - Final, Complete 04/18/18 Influenza Types A,B Antigen (ESTUARDO) - Final, Complete 04/18/18 Urine Culture - Final, Complete NO GROWTH Radiology NAME: DEBORA AARON [facility] REC#: [id number] PT STATUS: ADM IN : 1940 PHYSICIAN: MERRICK SIEGEL DO ADMIT DATE: 04/18/18/4TH Draft Date of Exam:04/20/18 CHEST 1 VIEW, AP/PA ONLY INDICATION: Pleural effusion. Comparison with 04/18/2018. FINDINGS: Moderate right pleural effusion is present. There has been slight increase in left pleural effusion. Heart remains enlarged with median sternotomy changes. Pulmonary venous congestion is again noted. IMPRESSION: 1. Increasing pulmonary venous congestion with increasing bilateral pleural effusions since previous exam. Dictated on workstation # [id number] Dict: 04/20/1824 Trans: 04/20/18 [id number] [id number] Interpreted by: TAWNY HAWKINS MD Electronically signed by: A/P-Cardiology Assessment/Admission Diagnosis Elevated BNP Generalized weakness with frequent falls - management per medical services Hyponatremia of undetermined etiology - management per medical services Ac NSTEMI on 09/30/17 due to occlusion of SVG to RI, treated with PCI: Cath and cor intervention of 09/30/17: CAD consisting of severe proximal disease of the LAD, proximal occlusion of the RI, moderately severe long stenosis in the proximal portion of LCX, patent stents in prox and distal RCA (Taxus 3 mm stents ) and moderately severe stenosis in a small caliber PDA from RCA; Occlusion of the SVG to RI treated successfully with deployment of Mini Vision 2.0 x 12 mm stent at the site of insertion of the graft into the RI and placement of Alpine Xience 3.0 x 38 mm stent in the proximal and mid portions of the graft; Patent, albeit small caliber, HUFF to the LAD; Normal LVEDP; Diaphragmatic akinesis of the left ventricle; LVEF approx 50%. 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 CT of head and cervical spine on 10/01/17: Chronic changes. No acute intracranial process is detected. Cervical spondylosis. No acute bony abnormality is detected Noncompliance, intermittent Clinical Quality Measures DVT/VTE Risk/Contraindication: Risk Factor Score Per Nursin RFS Level Per Nursing on Admit: 2=Moderate Contraindications-Pharm: Other *list below* JERARDO SCHWARTZ Apr 20, 2018 09:57
[2018-04-20] MEDS ORDERED: FUROSEMIDE 40 MG/4 ML INJ (LASIX) IVP NR ×2 (10:00→10:15)
[2018-04-20] MEDS: HYDROcodone/APAP 5 MG/325 MG (LORTAB) TAB PO PRN (10:36)
[2018-04-20 12:12] VITALS: BP 106/63
[2018-04-20] MEDS ORDERED: TRAM50TA2 PO (14:24)
[2018-04-20] MEDS ORDERED: GUAI5SYR PO (14:24)
[2018-04-20] MEDS ORDERED: ASPIRIN E.C. 81 MG (ECOTRIN) TAB PO SCH (21:00)
[2018-04-20] MEDS ORDERED: ATORVASTATIN 80 MG (LIPITOR) TABLET PO SCH (21:00)
[2018-04-20] MEDS ORDERED: CLOPIDOGREL 75 MG (PLAVIX) TABLET PO SCH (21:00)
[2018-04-20] MEDS ORDERED: GABAPENTIN 300 MG (NEURONTIN) CAP PO SCH (21:00)
[2018-04-21] MEDS ORDERED: FUROSEMIDE 40 MG (LASIX) TAB PO NR (07:00)
[2018-04-21] MEDS ORDERED: lisINopril 5 MG (PRINIVIL) TABLET PO SCH (09:00)
--- NOTE | 2018-04-21 11:48 | Consultation-Cardiology ---
HPI-Cardiology Cardiology Consultation: Date of Consultation 04/20/18 Time Seen by a Provider: 09:30 Date of Admission Attending Physician Ismael Shultz DO Admitting Physician Ismael Shultz DO Consulting Physician DORA HASSAN MD, MA, FACP, FACC, [facility], CCDS Physician requesting consult: Dr Shultz HPI: Chief Complaint: Reason for consultation: Elevated BNP HPI: Ms. Aaron is a 77 year old female admitted to [facility] from the ED with c/o increasing weakness, shortness of breath and frequent falls. She is not a good historian. She lives at home with her spouse and grand daughter. Her grand daughter is at the bedside. Over the last few days she has progressive weakness where she feels her legs give out and she has been falling at home. They report she has also been more short of breath. They report she has had worsening bilat LE edema which does improve somewhat with elevation, but never resolves. She denies any CP, palpitations, syncope or near syncope. She has been having some lose stools. She continues to smoke cigs Review of Systems-Cardiology Review of Systems Constitutional: No chills, No fever; malaise, tiredness Eyes: No vision change Ears/Nose/Throat: no symptoms reported Respiratory: As described under HPI Cardiovascular: As described under HPI Gastrointestinal: diarrhea Genitourinary: no symptoms reported Musculoskeletal: other (generalized weakness) Skin: No rash, No ulcerations Psychiatric/Neurological: No syncope Hematologic: No bleeding abnormalities All Other Systems Reviewed Negative Unless Noted: Yes XSR-Ikaykm-Vqnjao Hx Patient Social History Marrital Status: Employed/Student: retired Alcohol Use: Denies Use Recreational Drug Use: No Smoking Status: Current Everyday Smoker Type Used: Cigarettes Recent Foreign Travel: No Recent Infectious Disease Expo: No Hospitalization with Isolation: Denies Physical Abuse Screen: No Sexual Abuse: No Immunizations Up To Date Tetanus Booster (TDap): Unknown Date of Pneumonia Vaccine: Jun 02, 2011 Date of Influenza Vaccine: Apr 02, 2017 Past Medical History PMH As described under Assessment. Family Medical History Family Medical History: She reports no family h/o CAD, stroke or SCD. Family History: FH: suicide FH: uterine cancer 19 MOTHER FHx: diabetes mellitus 19 MOTHER Allergies and Home Medications Allergies Coded Allergies: NKANo Known Allergies (Verified Allergy, Unknown, 04/27/13) Home Medications Aspirin 81 Mg Tablet.dr, 81 MG PO HS, (Reported) Atorvastatin Calcium 80 Mg Tablet, 80 MG PO HS, (Reported) LAST FILLED #60 12-02-17 Clopidogrel Bisulfate 75 Mg Tablet, 75 MG PO HS, (Reported) LAST FILLED #30 12-02-17 Gabapentin 300 Mg Capsule, 300 MG PO BID, (Reported) LAST FILLED #60 18 Guaifenesin/Dextromethorphan 5 Ml Syrup, 10 ML PO Q4H PRN for COUGH, (Reported) Guaifenesin/Dextromethorphan 5 Ml Syrup, 10 ML PO Q4H PRN for COUGH, (Reported) Lisinopril 5 Mg Tablet, 2.5 MG PO DAILY, (Reported) LAST FILLED #30 02-03-18 TAKES 1/2 (5MG) TABLET Metoprolol Succinate 25 Mg Tab.er.24h, 12.5 MG PO DAILY, (Reported) LAST FILLED #30 02-03-18 TAKES 1/2 (25MG) TABLET Tramadol HCl 50 Mg Tablet, 50 MG PO TID PRN for PAIN-MODERATE, (Reported) Tramadol HCl 50 Mg Tablet, 50 MG PO TID PRN for PAIN-MODERATE, (Reported) Patient Home Medication List Home Medication List Reviewed: Yes Physical Exam-Cardiology Physical Exam Vital Signs/I&O Capillary Refill : Less Than 3 Seconds Constitutional: AAO x 3, well-developed, well-nourished HEENT: PERRL, hearing is well preserved Neck: No carotid bruit Respiratory: No accessory muscle use, No respiratory distress; chest expansion is symmetric, chest is bilaterally symmetric, rhonchi (scattered; prolonged expiratory phase) Cardiovascular: regular rate-rhythm, JVD (5 cm) Gastrointestinal: No tender; soft, audible bowel sounds Rectal: deferred Extremities: significant edema (bilat 2 (+) LE edema) Neurologic/Psychiatric: grossly intact Skin: No rash, No ulcerations Data Review Labs Microbiology 04/18/18 Blood Culture - Preliminary, Resulted No growth 04/18/18 C. difficile GDH Antigen & Toxins - Final, Complete 04/18/18 Influenza Types A,B Antigen (ESTUARDO) - Final, Complete 04/18/18 Urine Culture - Final, Complete NO GROWTH A/P-Cardiology Assessment/Admission Diagnosis Elevated BNP: due to renal failure and/or ac diastolic CHF Generalized weakness with frequent falls - management per medical services Hyponatremia of undetermined etiology - management per medical services CAD. Ac NSTEMI on 09/30/17 due to occlusion of SVG to RI, treated with PCI: Cath and cor intervention of 09/30/17: CAD consisting of severe proximal disease of the LAD, proximal occlusion of the RI, moderately severe long stenosis in the proximal portion of LCX, patent stents in prox and distal RCA (Taxus 3 mm stents ) and moderately severe stenosis in a small caliber PDA from RCA; Occlusion of the SVG to RI treated successfully with deployment of Mini Vision 2.0 x 12 mm stent at the site of insertion of the graft into the RI and placement of Alpine Xience 3.0 x 38 mm stent in the proximal and mid portions of the graft; Patent, albeit small caliber, HUFF to the LAD; Normal LVEDP; Diaphragmatic akinesis of the left ventricle; LVEF approx 50%. 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 CT of head and cervical spine on 10/01/17: Chronic changes. No acute intracranial process is detected. Cervical spondylosis. No acute bony abnormality is detected Noncompliance, intermittent Discussion and Recomendations * Complex management due to multiple comorbidities * On physical exam, she does not appear to be in florid heart failure, but BNP is markedly elevated. Elevation is likely partly due to renal failure, but there probably also a component of diastolic heart failure. We will treat with iv diuretics and we advise careful monitoring of the labs * I had a detailed discussion with her and her granddaughter who is one of main care providers. We discussed her CV issues and our treatment plan * Advised to quit smoking immediately and completely Clinical Quality Measures DVT/VTE Risk/Contraindication: Risk Factor Score Per Nursin RFS Level Per Nursing on Admit: 2=Moderate Contraindications-Pharm: Other *list below* DORA HASSAN MD FACP FAC CCDS Apr 21, 2018 11:47
--- NOTE | 2018-04-22 07:35 | Discharge Summary ---
Diagnosis/Chief Complaint Date of Admission Apr 18, 2018 at 21:19 Date of Discharge Apr 20, 2018 at 12:05 Discharge Time: 07:32 Discharge Diagnosis Weakness. Frequent falls. Short of breath. Renal failure. Acute diastolic congestive heart failure. Hypotension. Tobaccoism. CO PD. Hypotension. Peripheral neuropathy. Noncompliance. Coronary artery disease. Diabetes. Back pain Reason Hospital Visit Patient came out to the emergency room due to weakness. Patient not able to walk around. Has weakness in the legs and keeps on falling. Ration sodium 126. GFR is 16 for renal insufficiency. Patient has a right pleural effusion. Patient has a UTI. Patient having severe headaches which is new. One month ago patient had acute renal insufficiency and diabetic ketoacidosis and was transferred to [facility] Patient admits to diarrhea Discharge Summary Consultations Cardiology Discharge Physical Examination Allergies: Coded Allergies: NKANo Known Allergies (Verified Allergy, Unknown, 04/27/13) Vitals & I&Os Vital Signs Date Time Temp Pulse Resp B/P (MAP) Pulse Ox O2 Delivery O2 Flow Rate FiO2 04/20/18 12:12 95 20 106/63 93 Room Air 04/20/18 08:00 97.6 04/18/18 22:45 21 Hospital Course Patient transferred to acute rehabilitation. Poor gait Falling Labs (last 24 hrs) Laboratory Tests 04/18/18 19:05: White Blood Count 9.7, Red Blood Count 3.43L, Hemoglobin 10.5L, Hematocrit 30L, Mean Corpuscular Volume 86, Mean Corpuscular Hemoglobin 31, Mean Corpuscular Hemoglobin Concent 36, Red Cell Distribution Width 15.4H, Platelet Count 342, Mean Platelet Volume 8.9, Neutrophils (%) (Auto) 73, Lymphocytes (%) (Auto) 18, Monocytes (%) (Auto) 9, Eosinophils (%) (Auto) 1, Basophils (%) (Auto) 0, Neutrophils # (Auto) 7.0, Lymphocytes # (Auto) 1.7, Monocytes # (Auto) 0.9, Eosinophils # (Auto) 0.1, Basophils # (Auto) 0.0, Sodium Level 124*L, Potassium Level 4.8, Chloride Level 91L, Carbon Dioxide Level 21, Anion Gap 12, Blood Urea Nitrogen 16, Creatinine 2.95H, Estimat Glomerular Filtration Rate 16, BUN/ Creatinine Ratio 5, Glucose Level 167H, Lactic Acid Level 1.72, Calcium Level 8.5, Corrected Calcium 9.1, Total Bilirubin 0.4, Aspartate Amino Transf (AST/ SGOT) 24, Alanine Aminotransferase (ALT/SGPT) 27, Alkaline Phosphatase 109, C- Reactive Protein High Sensitivity 1.57H, Total Protein 7.5, Albumin 3.2 04/18/18 20:15: Urine Color YELLOW, Urine Clarity SLIGHTLY CLOUDY, Urine pH 6, Urine Specific [place] 1.010L, Urine Protein 2+H, Urine Glucose (UA) NEGATIVE, Urine Ketones NEGATIVE, Urine Nitrite NEGATIVE, Urine Bilirubin NEGATIVE, Urine Urobilinogen NORMAL, Urine Leukocyte Esterase 3+H, Urine RBC (Auto) 3+H, Urine RBC 2-5H, Urine WBC 25-50H, Urine Crystals NONE, Urine Bacteria FEWH, Urine Casts NONE, Urine Mucus NEGATIVE, Urine Culture Indicated YES 04/19/18 05:10: White Blood Count 8.7, Red Blood Count 3.27L, Hemoglobin 9.7L, Hematocrit 30L, Mean Corpuscular Volume 90, Mean Corpuscular Hemoglobin 30, Mean Corpuscular Hemoglobin Concent 33, Red Cell Distribution Width 15.8H, Platelet Count 300, Mean Platelet Volume 9.6, Neutrophils (%) (Auto) 67, Lymphocytes (%) (Auto) 21, Monocytes (%) (Auto) 12, Eosinophils (%) (Auto) 1, Basophils (%) (Auto) 0, Neutrophils # (Auto) 5.8, Lymphocytes # (Auto) 1.8, Monocytes # (Auto) 1.0, Eosinophils # (Auto) 0.1, Basophils # (Auto) 0.0, Sodium Level 126L, Potassium Level 4.1, Chloride Level 96L, Carbon Dioxide Level 21, Anion Gap 9, Blood Urea Nitrogen 18, Creatinine 2.80H, Estimat Glomerular Filtration Rate 16, BUN/ Creatinine Ratio 6, Glucose Level 188H, Calcium Level 8.1L, Corrected Calcium 9.1, Total Bilirubin 0.3, Aspartate Amino Transf (AST/SGOT) 19, Alanine Aminotransferase (ALT/SGPT) 22, Alkaline Phosphatase 90, Total Protein 6.3L, Albumin 2.7L 04/19/18 11:14: Glucometer 159H 04/19/18 15:05: Glucometer 198H 04/19/18 19:53: Glucometer 183H 04/20/18 05:32: Glucometer 146H 04/20/18 08:20: White Blood Count 9.6, Red Blood Count 3.13L, Hemoglobin 9.5L, Hematocrit 28L, Mean Corpuscular Volume 90, Mean Corpuscular Hemoglobin 30, Mean Corpuscular Hemoglobin Concent 34, Red Cell Distribution Width 15.8H, Platelet Count 274, Mean Platelet Volume 9.4, Neutrophils (%) (Auto) 80H, Lymphocytes (%) (Auto) 11L , Monocytes (%) (Auto) 9, Eosinophils (%) (Auto) 0, Basophils (%) (Auto) 0, Neutrophils # (Auto) 7.7, Lymphocytes # (Auto) 1.1, Monocytes # (Auto) 0.8, Eosinophils # (Auto) 0.0, Basophils # (Auto) 0.0, Sodium Level 133L, Potassium Level 4.4, Chloride Level 104, Carbon Dioxide Level 19L, Anion Gap 10, Blood Urea Nitrogen 14, Creatinine 2.25H, Estimat Glomerular Filtration Rate 21, BUN/ Creatinine Ratio 6, Glucose Level 184H, Calcium Level 8.1L, B-Type Natriuretic Peptide 4592.3H 04/20/18 11:31: Glucometer 258H Microbiology 04/18/18 Blood Culture - Preliminary, Resulted No growth 04/18/18 C. difficile GDH Antigen & Toxins - Final, Complete 04/18/18 Influenza Types A,B Antigen (ESTUARDO) - Final, Complete 04/18/18 Urine Culture - Final, Complete NO GROWTH Laboratory Tests 04/18/18 19:05 04/19/18 05:10 04/20/18 08:20 Pending Labs Microbiology Date/Time Source Procedure Growth Status 04/18/18 19:21 Peripheral Left Wrist Blood Culture - Preliminary No growth Resulted 04/18/18 19:05 Peripheral Rt Ac Blood Culture - Preliminary No growth Resulted 04/18/18 11:26 Stool C. difficile GDH Antigen & Toxins - Final Complete 04/18/18 18:59 Nasopharynx Influenza Types A,B Antigen (ESTUARDO) - Final Complete 04/18/18 20:15 Urine Clean Catch Urine Culture - Final NO GROWTH Complete Laboratory Tests 04/18/18 19:05: White Blood Count 9.7, Red Blood Count 3.43, Hemoglobin 10.5, Hematocrit 30, Mean Corpuscular Volume 86, Mean Corpuscular Hemoglobin 31, Mean Corpuscular Hemoglobin Concent 36, Red Cell Distribution Width 15.4, Platelet Count 342, Mean Platelet Volume 8.9, Neutrophils (%) (Auto) 73, Lymphocytes (%) (Auto) 18, Monocytes (%) (Auto) 9, Eosinophils (%) (Auto) 1, Basophils (%) (Auto) 0, Neutrophils # (Auto) 7.0, Lymphocytes # (Auto) 1.7, Monocytes # (Auto) 0.9, Eosinophils # (Auto) 0.1, Basophils # (Auto) 0.0, Sodium Level 124, Potassium Level 4.8, Chloride Level 91, Carbon Dioxide Level 21, Anion Gap 12, Blood Urea Nitrogen 16, Creatinine 2.95, Estimat Glomerular Filtration Rate 16, BUN/ Creatinine Ratio 5, Glucose Level 167, Lactic Acid Level 1.72, Calcium Level 8.5 , Corrected Calcium 9.1, Total Bilirubin 0.4, Aspartate Amino Transf (AST/SGOT) 24, Alanine Aminotransferase (ALT/SGPT) 27, Alkaline Phosphatase 109, C- Reactive Protein High Sensitivity 1.57, Total Protein 7.5, Albumin 3.2 04/18/18 20:15: Urine Color YELLOW, Urine Clarity SLIGHTLY CLOUDY, Urine pH 6, Urine Specific [place] 1.010, Urine Protein 2+, Urine Glucose (UA) NEGATIVE, Urine Ketones NEGATIVE, Urine Nitrite NEGATIVE, Urine Bilirubin NEGATIVE, Urine Urobilinogen NORMAL, Urine Leukocyte Esterase 3+, Urine RBC (Auto) 3+, Urine RBC 2-5, Urine WBC 25-50, Urine Crystals NONE, Urine Bacteria FEW, Urine Casts NONE, Urine Mucus NEGATIVE, Urine Culture Indicated YES 04/19/18 05:10: White Blood Count 8.7, Red Blood Count 3.27, Hemoglobin 9.7, Hematocrit 30, Mean Corpuscular Volume 90, Mean Corpuscular Hemoglobin 30, Mean Corpuscular Hemoglobin Concent 33, Red Cell Distribution Width 15.8, Platelet Count 300, Mean Platelet Volume 9.6, Neutrophils (%) (Auto) 67, Lymphocytes (%) (Auto) 21, Monocytes (%) (Auto) 12, Eosinophils (%) (Auto) 1, Basophils (%) (Auto) 0, Neutrophils # (Auto) 5.8, Lymphocytes # (Auto) 1.8, Monocytes # (Auto) 1.0, Eosinophils # (Auto) 0.1, Basophils # (Auto) 0.0, Sodium Level 126, Potassium Level 4.1, Chloride Level 96, Carbon Dioxide Level 21, Anion Gap 9, Blood Urea Nitrogen 18, Creatinine 2.80, Estimat Glomerular Filtration Rate 16, BUN/ Creatinine Ratio 6, Glucose Level 188, Calcium Level 8.1, Corrected Calcium 9.1 , Total Bilirubin 0.3, Aspartate Amino Transf (AST/SGOT) 19, Alanine Aminotransferase (ALT/SGPT) 22, Alkaline Phosphatase 90, Total Protein 6.3, Albumin 2.7 04/19/18 11:14: Glucometer 159 04/19/18 15:05: Glucometer 198 04/19/18 19:53: Glucometer 183 04/20/18 05:32: Glucometer 146 04/20/18 08:20: White Blood Count 9.6, Red Blood Count 3.13, Hemoglobin 9.5, Hematocrit 28, Mean Corpuscular Volume 90, Mean Corpuscular Hemoglobin 30, Mean Corpuscular Hemoglobin Concent 34, Red Cell Distribution Width 15.8, Platelet Count 274, Mean Platelet Volume 9.4, Neutrophils (%) (Auto) 80, Lymphocytes (%) (Auto) 11, Monocytes (%) (Auto) 9, Eosinophils (%) (Auto) 0, Basophils (%) (Auto) 0, Neutrophils # (Auto) 7.7, Lymphocytes # (Auto) 1.1, Monocytes # (Auto) 0.8, Eosinophils # (Auto) 0.0, Basophils # (Auto) 0.0, Sodium Level 133, Potassium Level 4.4, Chloride Level 104, Carbon Dioxide Level 19, Anion Gap 10, Blood Urea Nitrogen 14, Creatinine 2.25, Estimat Glomerular Filtration Rate 21, BUN/ Creatinine Ratio 6, Glucose Level 184, Calcium Level 8.1, B-Type Natriuretic Peptide 4592.3 04/20/18 11:31: Glucometer 258 Discharge Home Medications: Active Scripts Active Reported Guaifenesin Dm Syrup (Guaifenesin/Dextromethorphan) 5 Ml Syrup 10 Ml PO Q4H PRN Tramadol HCl 50 Mg Tablet 50 Mg PO TID PRN Tramadol HCl 50 Mg Tablet 50 Mg PO TID PRN Guaifenesin Dm Syrup (Guaifenesin/Dextromethorphan) 5 Ml Syrup 10 Ml PO Q4H PRN Metoprolol Succinate 25 Mg Tab.er.24h 12.5 Mg PO DAILY LAST FILLED #30 02-03-18 TAKES 1/2 (25MG) TABLET Lisinopril 5 Mg Tablet 2.5 Mg PO DAILY LAST FILLED #30 02-03-18 TAKES 1/2 (5MG) TABLET Clopidogrel (Clopidogrel Bisulfate) 75 Mg Tablet 75 Mg PO HS LAST FILLED #30 12-02-17 Gabapentin 300 Mg Capsule 300 Mg PO BID LAST FILLED #60 01-13-18 Aspirin EC (Aspirin) 81 Mg Tablet.dr 81 Mg PO HS Atorvastatin Calcium 80 Mg Tablet 80 Mg PO HS LAST FILLED #60 12-02-17 Instructions to patient/family Please see electronic discharge instructions given to patient. Clinical Quality Measures DVT/VTE Risk/Contraindication: Risk Factor Score Per Nursin RFS Level Per Nursing on Admit: 2=Moderate Contraindications-Pharm: Other *list below* MERRICK SIEGEL DO Apr 22, 2018 07:35
--- NOTE | 2018-04-25 09:12 | Physician Query Clarification ---
PQ-Further Specificity Admission/Discharge Admission Date: Apr 18, 2018 at 21:19 Discharge Date: Apr 20, 2018 at 12:05 The medical record reflects the following clinical scenario: History/Risk Factors: acute diastolic congestive heart failure Diabetic nephropathy with chronic kidney disease stage 2-3. Clinical Findings: On admission: Creatinine 2.95 and eGFR 16. Per consult-Dr. Zavala- Elevated BNP due to Renal failure and /or acute diastolic CHF with an additional diagnosis of diabetic nephropathy with chronic kidney disease stage 2-3. Treatment: IV Sodium Chloride 500 ml @0mls/hr Wide Open on admission. Question: Can you further specify the acuity of Renal Failure listed in your discharge diagnosis per the clinical indicators above? Please document below. 1. Acute renal failure and diabetic nephropathy with chronic kidney disease stage 2-3. 2. Diabetic nephropathy with chronic kidney disease stage 2-3. 3. Other, with explanation of the clinical findings. 4. Clinically undetermined, no explanation for the clinical findings. PHYSICIAN RESPONSE Can you specify per above: 1 In responding to this query, please exercise your independent professional judgment. The purpose of this communication is to more accurately reflect the complexity of your patients condition. The fact that a question is asked does not imply that any particular answer is desired or expected. Thank you for your timely response to this clarification. Requestors name: Sary Miranda [place] Phone # ext [phone] or [phone] THIS PHYSICIAN QUERY FORM IS A PERMANENT PART OF THE MEDICAL RECORD SARY MIRANDA Apr 25, 2018 09:12 MERRICK SIEGEL DO Apr 26, 2018 07:26
--- NOTE | 2018-04-25 09:20 | Physician Query Clarification ---
PQ-Uncertain Diagnosis Admission/Discharge Admission Date: Apr 18, 2018 at 21:19 Discharge Date: Apr 20, 2018 at 12:05 The medical record reflects the following clinical scenario: History/Risk Factors: Renal Failure Acute diastolic CHF Weakness Clinical Findings:On admission: UA showing Ur Spec Riggins 1.010, Ur Protein 2+ , Urine RBC 2-5, Urine WBC 25-50, Urine Bacteria Few, Urine culture-No growth. UTI noted per ED physician with culture ordered, but no growth on final. Treatment: IV Rocephin Question: Is UTI a clinically valid diagnosis? UTI was documented in the ED record with no further documentation in the medical record. Please document a response below. PHYSICIAN RESPONSE Diagnosis clinically valid: No, conditon ruled out In responding to this query, please exercise your independent professional judgment. The purpose of this communication is to more accurately reflect the complexity of your patients condition. The fact that a question is asked does not imply that any particular answer is desired or expected. Thank you for your timely response to this clarification. Requestors name: Sary Miranda [facility] Phone # ext [phone] or [phone] THIS PHYSICIAN QUERY FORM IS A PERMANENT PART OF THE MEDICAL RECORD SARY MIRANDA Apr 25, 2018 09:20 MERRICK SIEGEL DO Apr 28, 2018 07:32
== END 2018-04-20 12:05 | DRG 682 ==
LOC: EDUNIT# 18:53 → ER 18:55 → 4TH 21:19
PROVIDERS: ADMIT Family Medicine; ATTEND Family Medicine
DX: N17.9 Acute kidney failure, unspecified (principal); E87.1 Hypo-osmolality and hyponatremia; I50.31 Acute diastolic (congestive) heart failure; E11.21 Type 2 diabetes mellitus with diabetic nephropathy; N18.3 Chronic kidney disease, stage 3 (moderate); E11.42 Type 2 diabetes mellitus with diabetic polyneuropathy; E86.0 Dehydration; I95.9 Hypotension, unspecified; R51 Headache; E11.65 Type 2 diabetes mellitus with hyperglycemia; R19.7 Diarrhea, unspecified; I25.10 Atherosclerotic heart disease of native coronary artery without angina pectoris; I25.2 Old myocardial infarction; J44.9 Chronic obstructive pulmonary disease, unspecified; F17.210 Nicotine dependence, cigarettes, uncomplicated; E78.00 Pure hypercholesterolemia, unspecified; G40.909 Epilepsy, unspecified, not intractable, without status epilepticus; K21.9 Gastro-esophageal reflux disease without esophagitis; F41.9 Anxiety disorder, unspecified; F32.9 Major depressive disorder, single episode, unspecified; M81.0 Age-related osteoporosis without current pathological fracture; M19.91 Primary osteoarthritis, unspecified site; M54.9 Dorsalgia, unspecified; R29.6 Repeated falls; Z95.5 Presence of coronary angioplasty implant and graft; Z95.1 Presence of aortocoronary bypass graft; Z86.73 Personal history of transient ischemic attack (TIA), and cerebral infarction without residual deficits; Z79.4 Long term (current) use of insulin; Z91.11 Patient's noncompliance with dietary regimen; Z87.11 Personal history of peptic ulcer disease
CPT/HCPCS: 36415; 70450; 71045; 80048; 80053; 81000; 82962; 83605; 83880; 85025; 86141; 87040; 87088; 87324; 87449; 87804; 94640; 94760; 96361; 96365

== ENCOUNTER 2018-04-20 11:17 | Inpatient (IN) | payer MEDICARE ==
[~2018-04-20] VITALS: Ht 167.6 cm; Wt 73.5 kg
[2018-04-20 14:00] VITALS: BP 95/61
[2018-04-20] MEDS ORDERED: RT-ALBUTEROL/IPRATROPIUM 3 ML (DUONEB) VIAL INH PRN (14:15)
--- NOTE | 2018-04-20 14:20 | Physical Therapy Evaluation ---
PT Evaluation-General Medical Diagnosis Admission Date Apr 20, 2018 at 12:15 Medical Diagnosis: UTI/hyponatremia Onset Date: Apr 18, 2018 Therapy Diagnosis Therapy Diagnosis: impaired mobility, strength, endurance Height/Weight Height (Feet): 5 Height (Inches): 7.00 Weight (Pounds): 149 Weight (Ounces): 6.0 Referral Physician: Shar Reason for Referral: Evaluation/Treatment Medical History Pertinent Medical History: CABG, CAD, COPD, DM, HTN, Neuropathy, Smoking Additional Medical History ED with DANIELLE and weakness Reviewed History: Yes Social History Home: Multilevel Entry Into Home: Stairs With Railing Prior/Core FIM Prior Level of Function Functional [place] Measure 0=Not Assessed/NA 4=Minimal Assistance 1=Total Assistance 5=Supervision or Setup 2=Maximal Assistance 6=Modified [place] 3=Moderate Assistance 7=Complete IndependenceIRFPAI Quality Coding Scale 6 Independent with activity with or without an assistive device 5 Patient requires set up or clean up by helper. Patient completes activity by themselves 4 Supervision or touching assist (CGA). [place] provide cues , steadying assist 3 The helper provides less than half the effort to complete the activity 2 The helper provides more than half the effort to complete the activity 1 Dependent. The helper does all the effort to complete an activity 7 Patient refused to complete or attempt activity 9 The patient did not perform the activity before the current illness or injury 88 Not attempted due to Medical conditions or safety concerns Bed Mobility: 7 Transfers (B,C,W/C) (FIM): 7 Gait: 6 Patient states she was using a walker previously PT Evaluation-Current Subjective Patient in bed pre tx, initially refused to come to rehab and had to be convinced by nursing and rehab admissions to come. Patient states she has 10/ 10 pain headache. Pt/Family Goals to decrease pain Objective Patient Orientation: Person, Place, Situation ROM/Strength ROM Lower Extremities WNL Strenght Lower Extremities right lower extremity (hip flexion 3/5, knee flexion 4-/5, knee extension 4-/5, dorsiflexion 4/5), left lower extremity (hip flexion 3/5, knee flexion 4-/5, knee extension 4-/5, dorsiflexion 4/5) Neuromuscular (Tone, Coordination, Reflexes) NT Sensory Vision: Wears Glasses Hearing: Functional Sensation Right Lower Extremit: Impaired Sensation Left Lower Extremity: Impaired Transfers Functional [place] Measure 0=Not Assessed/NA 4=Minimal Assistance 1=Total Assistance 5=Supervision or Setup 2=Maximal Assistance 6=Modified [place] 3=Moderate Assistance 7=Complete IndependenceIRFPAI Quality Coding Scale 6 Independent with activity with or without an assistive device 5 Patient requires set up or clean up by helper. Patient completes activity by themselves 4 Supervision or touching assist (CGA). [place] provide cues , steadying assist 3 The helper provides less than half the effort to complete the activity 2 The helper provides more than half the effort to complete the activity 1 Dependent. The helper does all the effort to complete an activity 7 Patient refused to complete or attempt activity 9 The patient did not perform the activity before the current illness or injury 88 Not attempted due to Medical conditions or safety concerns Transfers (B, C, W/C) (FIM): 5 Scootin Rollin Roll Left to Right (QC): 4 Supine to/from Sit: 5 Sit to/from Stand: 4 bed t/f WC(FIM only if WC use): 4 Sit to Lying (QC): 4 Lying to Sitting/Side of Bed(Q: 4 Sit to Stand (QC): 4 Chair/Qcv-cs-Mgqfs Xfer(QC): 4 Patient performed bed mobility and supine <-> sit with SBA, CGA for sit to stand and transfers. Gait Does the Patient Walk?: Yes Mode of Locomotion: Walk Anticipated Mode of Locomotion: Walk Gait (FIM): 1 Walk 10 feet (QC): 4 Walk 50 ft with 2 Turns(QC): 88 Walk 150 ft (QC): 88 Walking 10ft/uneven surface-QC: 88 Distance: 10' Gait Level of Assist: 4 Gait Persons Needed: 1 Gait Assistive Device: FWW Comments/Gait Description Patient ambulated 10' with a rolling walker with CGA. After 10' patient's knees kept buckling and she could ambulate no further and had to sit in the wheelchair. Stairs If not tested on admit;explain Patient is not able to perform stairs due to safety reasons and pain. Patient has 10/10 pain in head and her knees were buckling after ambulating just a few feet. Balance Sitting Static: Normal Sitting Dynamic: Normal Standing Static: Fair Standing Dynamic: Fair Assessment/Needs Patient has impaired mobility, strength, endurance. Her knees buckle after ambulating just a few feet. Needs close guarding for safety reasons. Rehab Potential: Guarded PT Short Term Goals Short Term Goals Time Frame: Apr 27, 2018 Transfers (B,C,W/C) (FIM): 5 Gait (FIM): 1 Gait Distance Comment: 30' Gait Level of Assist: 4 Gait Assistive Device: FWW PT Etl Analyst Goals Skilled Nursing Goals PT Skilled Nursing Goals Time Frame: May 11, 2018 Transfers (B,C,W/C) (FIM): 6 Sit to Lying (QC): 6 Lying-Sitting on Side/Bed(QC): 6 Sit to Stand (QC): 6 Rollin Roll Left to Right (QC): 6 Chair/Zge-ph-Gqgva Xfer(QC): 6 Car Transfer (QC): 6 Gait (FIM): 2 Distance: 50' Walk 10 feet (QC): 4 Walk 10ft-Uneven Surface(QC): 4 Walk 50ft with 2 Turns (QC): 4 Gait Level of Assist: 5 Gait Assistive Device: FWW Stairs (FIM): 2 # of Steps: 4 1 Step (curb) (QC): 4 4 Steps (QC): 4 Stairs Level Of Assist: 4 PT Plan Problem List Problem List: Activity Tolerance, Functional Strength, Safety, Balance, Gait, Transfer, Bed Mobility, ROM Treatment/Plan Treatment Plan: Continue Plan of Care Treatment Plan: Bed Mobility, Concurrent Therapy, Education, Functional Activity Karen, Functional Strength, Group Therapy, Gait, Safety, Therapeutic Exercise, Transfers Treatment Duration: May 11, 2018 Frequency: At least 5 of 7 days/Wk (IRF) Estimated Hrs Per Day: 1.5 hours per day Patient and/or Family Agrees t: Yes Safety Risks/Education Patient Education: Gait Training, Transfer Techniques, Correct Positioning, Safety Issues Teaching Recipient: Patient Teaching Methods: Demonstration, Discussion Response to Teaching: Reinforcement Needed Discharge Recommendations Plan Patient will perform bed mobility and transfer training, balance and endurance training, functional strengthening, stair training, gait training, and education , to improve functional mobility and independence at home. Therapy D/C Recommendations: Home w/ Family Support Time/GCodes Time In: 1145 Time Out: 1205 Total Billed Treatment Time: 20 Total Billed Treatment 1 visit EVM 20' DONTE CHAO PT Apr 20, 2018 14:19
[2018-04-20] MEDS ORDERED: TRAM50TA2 PO (14:24)
[2018-04-20] MEDS ORDERED: GUAI5SYR PO ×2 (14:24)
[2018-04-20] MEDS: RT-ALBUTEROL/IPRATROPIUM 3 ML (DUONEB) VIAL INH SCH ×2 (14:46→19:37)
--- NOTE | 2018-04-20 14:54 | Therapy Group Daily Note ---
Therapy Daily Group Note Patient Education Topic Other List Below (memory, ARU description/expectations) Exercises LE Seated Exercise, UE Exercise Other/Notes Pt transported via w/c to OT/PT group in [facility]. Group consisted of introductions (name, place living, most ornery trick), ARU description/ expectations, UE/LE seated exercises, memory strategy education and memory activity. Pt introduced self appropriately and actively listened to peers. Pt contributed to and initiated conversations throughout group. Pt was able to complete UE/LE exercises, fatigued easily. Verbalized understanding and was able to give examples from personal experience. Pt requested to use bathroom, transferred and toileted with SBA. Pt was able to toss hinojosa bags at designated areas from a seated position. Completed memory activity appropriately and was able to match like pictures. Pt then ambulated back to room and laid down after therapy. Call light/phone in reach, all needs met in room. Start Time: 13:00 Stop Time: 14:20 Total Billed Treatment Time: 80 Total Billed Treatment 1-GRP NIKKI ROGERS Apr 20, 2018 14:54
[2018-04-20] MEDS ORDERED: FLU QUADRIvalent (5+ YOA) 2018-2019 (AFLURIA) 0.5 ML IM ONE (15:00)
--- NOTE | 2018-04-20 15:14 | PM&R Post Admission Assessment ---
Post Admission Physician Asses Date seen by provider: Apr 20, 2018 Time seen by provider: 15:00 The preadmission screen agrees with the post admission assessment that the patient is a good candidate for inpatient rehabilitation. The patient will have a comprehensive program of inpatient rehabilitation with a goal of maximizing level of functional independence prior to discharge home with spouse. The patient will have PT/OT ninety minutes per day, each discipline, five days a week for14 days for gait, strengthening, conditioning, balance, ADLs, any patient/family/caregiver training as necessary. Speech therapy to do cognitive assessment and treat as indicated. Rehabilitation nursing to assist with bowel, bladder, skin, wound care, medication administration, pain management. Fitness And Wellness Coordinator to assist with discharge planning, community reentry. SCD's for DVT prophylaxis. She appears to be well motivated to participate in three hours of therapy a day. She should be able to tolerate three hours of therapy a day from a medical standpoint. She should benefit from the three hours of therapy a day. She has a reasonable discharge plan, reasonable discharge rehabilitation goals and a supportive family. She has various comorbidities that need to be closely monitored with medications and treatments adjusted on a daily basis as needed. These include: COPD Tobaccoism CAD HTN DM Diabetic PN IGC code 03.8 Etiologic DX CHF myopathy Barriers to discharge for this patient who had beenModified independent with a walker prior to this are for her to be modified independent to supervision for ADLs and mobility skills prior to discharge home with spouse, so as to lessen the burden of the caregivers. Risks for this patient include: 1. Fall 2. Fracture 3. DVT 4. Pulmonary embolism 5. Exacerbation of COPD 6. Skin breakdown 7. Contractures 8. Poorly controlled pain 9. Urinary retention 10. UTI 11. Respiratory infection 12. Aspiration 13.poorly controlled DM 14.Poorly controlled HTN Estimated Length of Stay: 14 days Prognosis: Rehab prognosis appears good for goal of discharge home with spouse modified independent to supervision for ADLs and mobility skills. Date Identified: Apr 20, 2018 Time Identified: 14:00 Action Plan to Resolve CSMI: Transfer meds from medical unit reviewed General: Alert, Oriented X3, Cooperative, No Acute Distress HEENT: Atraumatic, PERRLA, EOMI, Mucous Memb Moist/[place] Neck: Supple, No JVD Lungs: Other (decreased breath sounds) Heart: Regular Rate Abdomen: Normal Bowel Sounds, Soft, No Tenderness Extremities: No Edema Neuro: Other ( hip flex 3/5 knee flex 4-/5 knee ext 4-/5 dorsiflex 4/5) Psych/Mental Status: Mental Status NL TAWNY GALEANO MD Apr 20, 2018 15:14
--- NOTE | 2018-04-20 15:52 | HISTORY AND PHYSICAL ---
DATE OF SERVICE: 04/20/2018 ADMISSION HISTORY AND PHYSICAL CHIEF COMPLAINT: Weakness in the legs. HISTORY OF PRESENT ILLNESS: The patient is a 77-year-old female, who was admitted to [facility] on 04/18/2018, due to progressive weakness and shortness of breath. She was found to be in congestive heart failure. She was followed by PCP, Dr. Shultz and as well as Cardiology. She was diuresed. She was left with a decreased level of functional dependence to this and referred to inpatient rehabilitation unit. She has a past medical history significant for multiple falls, diabetes mellitus, COPD and diabetic peripheral neuropathy. She has chronically low blood pressure that does not allow treatment with TAM inhibitors or ARBs. She has been able to tolerate only a very small dose of beta-blockers and sometimes has difficulty even with that. She has a non-ST elevation PR on 09/30/2017 due to occlusion of SVG to RI, treated with PCI on 09/30/2017. Coronary artery disease consisting of severe proximal disease of LAD, proximal occlusion of the RI, moderately severe long stenosis in the proximal portion of the LCA, patent stents in proximal and distal RCA, moderately severe stenosis and a small caliber PDA from RCA. Left ventricular ejection fraction approximately 50%. Currently, she is min assist for transfers and gait with a front wheel walker. She fatigues easily. She had been modified independent with a walker and living with her spouse in [place], [place] prior to this.She is Modified Independent for eating Sage uo for grooming and min assist for dressing. PAST MEDICAL HISTORY: Coronary artery disease, status post stents; status post CABG, COPD, tobaccoism, diabetes mellitus, diabetic peripheral neuropathy, hypertension. PAST SURGICAL HISTORY: CABG and stenting as per above. ALLERGIES: No known medication allergies. FAMILY HISTORY: She reports no family history of coronary artery disease, stroke, with a history of suicide, uterine cancer, diabetes mellitus. SOCIAL HISTORY: Essentially as per above. She lives in a multilevel home with her spouse, stairs with railing. Active tobaccoism. REVIEW OF SYSTEMS: A 10-point review of systems is significant for weakness in legs, numbness in feet, multiple falls and shortness of breath. MEDICATIONS: 1. Lisinopril 2.5 mg p.o. daily. 2. Toprol-XL 12.5 mg p.o. daily. 3. Ecotrin 81 mg p.o. at bedtime. 4. Lipitor 80 mg p.o. at bedtime. 5. Plavix 75 mg p.o. at bedtime. 6. Gabapentin 300 mg p.o. b.i.d. 7. DuoNeb treatments q.i.d. and q. 4 hours p.r.n. shortness of breath. 8. Hydrocodone APAP 5 one tablet p.o. t.i.d. p.r.n. moderate pain. PHYSICAL EXAMINATION: GENERAL: Significant for a patient lying in bed, appearing her stated age, appearing quite fatigued. O2 sat 92% on room air. HEENT: Vision, speech, hearing grossly intact. No oral lesion is noted. NECK: Supple without mass. HEART: Regular rhythm. CHEST: Decreased breath sounds. ABDOMEN: Soft, nontender, bowel sounds present. EXTREMITIES: plus edema in both ankles, no calf tenderness. MUSCULOSKELETAL: She has functional active range of motion in all 4 limbs. NEUROLOGIC: Cognition is grossly intact to touch. Sensation is impaired in feet to touch. Strength, bilateral hips 3/5 flexion, knee flexion and extension 4-/5, dorsiflexion 4/5.4-/5 strength BU limbs IMPRESSION: 1. 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 2. History of falls. 3. Chronic obstructive pulmonary disease. 4. Active tobaccoism. 5. Diabetes mellitus. 6. Hypertension. 7. Diabetic peripheral neuropathy. 8. Coronary artery disease, status post CABG. PLAN: The patient will have a comprehensive program of inpatient rehabilitation with goal of maximizing level of functional independence prior to discharge home with spouse. The patient will have PT and OT 90 minutes per day each discipline, 5 days a week for two weeks. Please see post-admission physician evaluation, which is a separate document for details of plan of care. Speech therapy to do cognitive assessment and treat as indicated. Rehabilitation nursing to assist with bowel, bladder, skin care, medication administration, pain management, and hospital social worker with discharge planning, community reentry. Follow up with Dr. Shultz, Cardiology as per the schedule. ESTIMATED LENGTH OF STAY: 14 days. PROGNOSIS: Rehab prognosis appears good for goal of discharging home with spouse, modified independent supervision for ADLs, mobility skills. DIET: Carb consistent. CODE STATUS: Full code. Job ID: [id number] DocumentID: [id number] Dictated Date: 04/20/2018 15:26:24 Pressure Test Operator Date: 04/20/2018 15:51:26 Dictated By: TAWNY GALEANO MD MTDD
--- NOTE | 2018-04-20 15:55 | Occupational Therapy Eval ---
OT Evaluation-General/PLF Medical Diagnosis Admission Date Apr 20, 2018 at 12:15 Medical Diagnosis: UTI/hyponatremia Onset Date: Apr 18, 2018 Therapy Diagnosis Therapy Diagnosis: Weakness Height/Weight Height (Feet): 5 Height (Inches): 7.00 Weight (Pounds): 149 Weight (Ounces): 6.0 Weight Bear Status Weight Bearing Restriction: Weight Bearing/Tolerated Referral Physician: Shar Referral Reason: Activity Tolerance, Self Care, Evaluation/Treatment, Strengthening/ROM Medical History Pertinent Medical History: CABG, CAD, COPD, DM, HTN, Neuropathy, Smoking Current History Pt. began to fall at home. Came to ER. Found to have UTI. Reviewed History: Yes Social History Pt. keeps eyes closed through most of evaluation. Pt. is not good historian and does not answer all questions at this time due to having a headache. Spoke with nursing. Pt. has had medication previously to coming to rehab setting. ADL-Prior Level of Function Functional [place] Measure 0=Not Assessed/NA 4=Minimal Assistance 1=Total Assistance 5=Supervision or Setup 2=Maximal Assistance 6=Modified [place] 3=Moderate Assistance 7=Complete [place] ADL PLOF Comments Pt. states that she was able to bathe and dress herself, but is very vague. Does state that she began "falling a lot." States that she is afraid of falling now. Self Care Self Care: (Code the patient's need for assistance with bathing, dressing, using the toilet, or eating prior to the current illness, exacerbation, or injury.) Functional Cognition Functional Cognition: (Code the patient's need for assistance with planning regular tasks, such as shopping or remembering to take medicaiton prior to the current illness, exacerbation, or injury.) OT Current Status Subjective Pt. comes to rehab but is asleep when OT comes to room. Pt. keeps eyes closed through most of brief evaluation. States that she is tired and has a bad headache. Declines any out of bed activity. Mental Status/Objective Patient Orientation: Unable to Assess ADL-Treatment Functional [place] Measure 0=Not Assessed/NA 4=Minimal Assistance 1=Total Assistance 5=Supervision or Setup 2=Maximal Assistance 6=Modified [place] 3=Moderate Assistance 7=Complete IndependenceIRFPAI Quality Coding Scale 6 Independent with activity with or without an assistive device 5 Patient requires set up or clean up by helper. Patient completes activity by themselves 4 Supervision or touching assist (CGA). [place] provide cues , steadying assist 3 The helper provides less than half the effort to complete the activity 2 The helper provides more than half the effort to complete the activity 1 Dependent. The helper does all the effort to complete an activity 7 Patient refused to complete or attempt activity 9 The patient did not perform the activity before the current illness or injury 88 Not attempted due to Medical conditions or safety concerns Transfers (B, C, W/C) (FIM): 4 (Min assist sit-stand and transfer to bed. Min assist sit-supine.) Other Treatments Pt. is seen twice by OT. In both attempts, pt. is very unwilling to participate. At first attempt, pt. keeps eyes closed and is lying down. Does not want to sit up and declines out of bed activity. Pt. is asked if she is hungry and pt. does state, "yes." OT orders her food but pt. has to be prompted to request what she would like to eat. All needs are met and OT leaves room. OT comes back to room to assist pt. back after group. Pt. becomes angry as she wants to get back to bed. States, "you guys are just lying to me." OT offers to assist pt. with shower to see if that will help with her headache. Pt. declines. OT offers to assist pt. to dress. Pt. declines. Pt. states, "I just want to get to that bed," and begins to stand on her own. OT holds onto pt. and assists her to bed, so as she doesn't fall. Pt. is able to get feet into bed. OT encourages pt. to do more and educates her on importance of rehab. Pt. "shoos" OT away with hand. Spoke with rehab coordinator and social science research assistant regarding pt's participation. Education OT Patient Education: Correct positioning, Progress toward Goal/Update tx plan , Purpose of tx/functional activities, Reviewed precautions, Rehab process, Transfer techniques Teaching Recipient: Patient Teaching Methods: Demonstration, Discussion Response to Teaching: Unable to Return Demonstration OT Short Term Goals Short Term Goals Time Frame: May 04, 2018 Eating(FIM): 5 Grooming(FIM): 5 Bathing(FIM): 4 Upper Body Dressing(FIM): 5 Lower Body Dressing(FIM): 4 Toileting(FIM): 4 Transfers (B,C,W/C) (FIM): 5 Toilet/Commode Transfer(FIM): 5 Shower Transfer(FIM): 4 Additional Short Term Goals: 1-Demonstrate ADL Tasks, 2-Verbalize Understanding , 3-ImproveStrength/Karen 1=Demonstrate adherence to instructed precautions during ADL tasks. 2=Patient will verbalize/demonstrate understanding of assistive devices/ modifications for ADL. 3=Patient will improve strength/tolerance for activity to enable patient to perform ADL's. OT Sr Community Manager Goals Detention Goals Time Frame: May 11, 2018 Eating (FIM): 6 Eating (QC): 6 Groomin Oral Hygiene (QC): 6 Bathing(FIM): 5 Shower/Bathe Self (QC): 5 Upper Body Dressing(FIM): 6 Upper Body Dressing (QC): 6 Lower Body Dressing(FIM): 6 Lower Body Dressing (QC): 6 On/Off Footwear (QC): 6 Toileting(FIM): 6 Toileting Hygiene (QC): 6 Transfers (B,C,W/C) (FIM): 6 Toilet/Commode Transfer(FIM): 6 Toilet/Commode Transfer (QC): 6 Shower Transfer(FIM): 5 Additional Goals: 1-Demonstrate ADL Tasks, 2-Verbalize Understanding, 3- ImproveStrength/Karen 1=Demonstrate adherence to instructed precautions during ADL tasks. 2=Patient will verbalize/demonstrate understanding of assistive devices/ modifications for ADL. 3=Patient will improve strength/tolerance for activity to enable patient to perform ADL's. OT Education/Plan Problem List/Assessment Assessment: Decreased Activ Tolerance, Impaired I ADL's, Impaired Self-Care Skills Discharge Recommendations Plan/Recommendations: Continue POC Therapy D/C Recommendations: 24 hr Supervision Comment At this time, pt. is refusing to participate and is limiting. Equipment needs and discharge needs are not fully known at this time. Treatment Plan/Plan of Care Treatment,Training & Education: Yes Patient would benefit from OT for education, treatment and training to promote independence in ADL's, mobility, safety and/or upper extremity function for ADL' s. Plan of Care: ADL Retraining, Functional Mobility, Group Exercise/Act as Ind, UE Funct Exercise/Act Treatment Duration: May 11, 2018 Frequency: At least 5 of 7 days/Wk (IRF) Estimated Hrs Per Day: 1.5 hours per day Agreement: Yes Rehab Potential: Guarded Time/GCodes Start Time: 11:40 Stop Time: 14:30 Total Time Billed (hr/min): 30 Billed Treatment Time 1, EVH x [id number] 1, FA x 10minutes [id number] MAT WILLIAMSON OT Apr 20, 2018 15:55
--- NOTE | 2018-04-20 16:02 | ST Cognitive Linguistic Eval ---
Speech Evaluation-General Medical Diagnosis UTI/hyponatremia Onset Date: Apr 18, 2018 Therapy Diagnosis Therapy Diagnosis: Cognition Referral Referring Physician: Dr. Myles Reason for Referral: Evaluation/Treatment Medical History Pertinent Medical History: CABG, CAD, COPD, DM, HTN, Neuropathy, Smoking Reviewed History: Yes Speech PLF-Current Status Prior Level of Function Pt was independent Subjective Pt in bed. Kept eyes closed most of the session. Attempted evaluation and pt responded to some orientation questions. When asked what her address is she replied "I don't know". When asked to do other sections such as "count backwards from 20 to 0" she replied "no". At this point the pt would not respond anymore. Attempted to explain to pt that she would benefit to cooperate in tx as this determines her discharge plans. Pt replied "whatever". Unable to complete assessment as pt was uncooperative. Do not have the data to determine if pt requires skilled ST. Pt will be dc'd from skilled ST due to uncooperativeness. Speech-Plan Patient/Family Goals Patient/Family Goals: pt would not state goals Treatment Plan Speech Therapy Treatment Plan: Discontinue ST Unable to complete testing due to pt uncooperativeness. Frequency: Modified Program (IRF) (0) Estimated Hrs Per Day: Other ([id number]) Rehab Potential: Guarded Time Speech Therapy Time In: 15:40 Speech Therapy Time Out: 15:55 Total Billed Time: 15 Billed Treatment Time 1, KRISTINNDRICHY Mosquera Apr 20, 2018 16:02
--- NOTE | 2018-04-20 16:45 | Physical Therapy Daily Note ---
PT Daily Note-Current Subjective Pt. agrees to Rx if she can get up to go to toilet and take her time. Pt. c/o headache and thirst. States she has not had a cigarette for 4 days Pain Numeric Pain Scale: 6 Location: Medial Location Body Site: Head Pain Description: Ache Mental Status Patient Orientation: Normal For Age Transfers Functional [place] Measure 0=Not Assessed/NA 4=Minimal Assistance 1=Total Assistance 5=Supervision or Setup 2=Maximal Assistance 6=Modified [place] 3=Moderate Assistance 7=Complete IndependenceIRFPAI Quality Coding Scale 6 Independent with activity with or without an assistive device 5 Patient requires set up or clean up by helper. Patient completes activity by themselves 4 Supervision or touching assist (CGA). [place] provide cues , steadying assist 3 The helper provides less than half the effort to complete the activity 2 The helper provides more than half the effort to complete the activity 1 Dependent. The helper does all the effort to complete an activity 7 Patient refused to complete or attempt activity 9 The patient did not perform the activity before the current illness or injury 88 Not attempted due to Medical conditions or safety concerns Transfers (B, C, W/C) (FIM): 4 Scootin Rollin Supine to/from Sit: 5 Sit to/from Stand: 4 Gait Training Does the Patient Walk?: Yes Gait (FIM): 1 Distance (FIM): 1=up to 49 ft (35,45,25) Gait Level of Assist: 4 Gait Persons Needed: 1 Gait Assistive Device: FWW needed encourgement for safety and w/c right behind, states she has ecological economist with FWW Wheelchair Training Does the Pt Use a Wheelchair?: Yes Wheelchair (FIM): 3 Wheelchair Distance: 3=150 ft (x1) Wheelchair Level of Assist: 4 Type of Wheelchair: Manual hand brake instruction Exercises Seated Therapy Exercises: Ankle pumps, Sit to stand, Long arc quads, Hip flexion Seated Reps: 12 NuStep Minutes: 8 NuStep Workload: 2 Treatments toileted managing cleaning indep, requested to don pants, pt in w/c retrieved them from her bags and sat in w/c to don with CGA to pull them up Assessment Current Status: Good Progress possibly having nicotine withdrawal PT Short Term Goals Short Term Goals Time Frame: Apr 27, 2018 Transfers (B,C,W/C) (FIM): 5 Gait (FIM): 1 Gait Distance Comment: 30' Gait Level of Assist: 4 Gait Assistive Device: FWW PT Public Information Specialist Goals Public Information Specialist Goals PT Public Information Specialist Goals Time Frame: May 11, 2018 Transfers (B,C,W/C) (FIM): 6 Sit to Lying (QC): 6 Lying-Sitting on Side/Bed(QC): 6 Sit to Stand (QC): 6 Rollin Roll Left to Right (QC): 6 Chair/[id number] Xfer(QC): 6 Car Transfer (QC): 6 Gait (FIM): 2 Distance: 50' Walk 10 feet (QC): 4 Walk 10ft-Uneven Surface(QC): 4 Walk 50ft with 2 Turns (QC): 4 Gait Level of Assist: 5 Gait Assistive Device: FWW Stairs (FIM): 2 # of Steps: 4 1 Step (curb) (QC): 4 4 Steps (QC): 4 Stairs Level Of Assist: 4 PT Plan Treatment/Plan Treatment Plan: Continue Plan of Care Treatment Plan: Bed Mobility, Concurrent Therapy, Education, Functional Activity Karen, Functional Strength, Group Therapy, Gait, Safety, Therapeutic Exercise, Transfers Treatment Duration: May 11, 2018 Frequency: At least 5 of 7 days/Wk (IRF) Estimated Hrs Per Day: 1.5 hours per day Patient and/or Family Agrees t: Yes Safety Risks/Education Patient Education: Gait Training, Transfer Techniques, Correct Positioning, W/ C Management, Disease Process, Safety Issues Teaching Recipient: Patient Teaching Methods: Demonstration, Discussion Response to Teaching: Verbalize Understanding, Return Demonstration, Reinforcement Needed Time/GCodes Time In: 1600 Time Out: 1645 Total Billed Treatment Time: 45 Total Billed Treatment 1,FA15m,GT15m,EX15m G Codes Necessary: ISAIAH Rosenthal SHELF FILLER Apr 20, 2018 16:45
[2018-04-20] MEDS: HYDROcodone/APAP 5 MG/325 MG (LORTAB) TAB PO PRN (16:50)
[2018-04-20] MEDS: CLOPIDOGREL 75 MG (PLAVIX) TABLET PO SCH (20:24)
[2018-04-20] MEDS: inSUlin ASPART (NovoLOG) 1 UNIT/0.01 ML (CHARGE PER UNIT) SC SCH (20:24)
[2018-04-20] MEDS: ASPIRIN E.C. 81 MG (ECOTRIN) TAB PO SCH (20:25)
[2018-04-20] MEDS: ATORVASTATIN 80 MG (LIPITOR) TABLET PO SCH (20:25)
[2018-04-20] MEDS: GABAPENTIN 300 MG (NEURONTIN) CAP PO SCH (20:25)
[2018-04-21] MEDS: HYDROcodone/APAP 5 MG/325 MG (LORTAB) TAB PO PRN ×2 (01:44→17:19)
[2018-04-21 05:09] VITALS: BP 108/64
[2018-04-21] MEDS: inSUlin ASPART (NovoLOG) 1 UNIT/0.01 ML (CHARGE PER UNIT) SC SCH ×4 (06:11→21:14)
[2018-04-21] MEDS: RT-ALBUTEROL/IPRATROPIUM 3 ML (DUONEB) VIAL INH SCH ×4 (07:18→20:52)
[2018-04-21 07:47] VITALS: BP 112/64
[2018-04-21] MEDS: lisINopril 5 MG (PRINIVIL) TABLET PO SCH (08:07)
[2018-04-21] MEDS: GABAPENTIN 300 MG (NEURONTIN) CAP PO SCH ×2 (08:07→21:13)
--- NOTE | 2018-04-21 08:13 | Consultation ---
History of Present Illness History of Present Illness Patient Consulted On(lara/time) 04/21/18 08:08 Time Seen by Provider: 08:08 History of Present Illness Patient in acute care floor gait problems, shortness of breath, congestive heart failure, diabetes, renal insufficiency. Patient at home and unable to walk and get around. Patient in hospital trouble getting around by self using walker. Family history has been is heart disease diabetes Allergies and Home Medications Allergies Coded Allergies: NKANo Known Allergies (Verified Allergy, Unknown, 04/27/13) Home Medications Aspirin 81 Mg Tablet.dr, 81 MG PO HS, (Reported) Atorvastatin Calcium 80 Mg Tablet, 80 MG PO HS, (Reported) LAST FILLED #60 12-02-17 Clopidogrel Bisulfate 75 Mg Tablet, 75 MG PO HS, (Reported) LAST FILLED #30 18 Gabapentin 300 Mg Capsule, 300 MG PO BID, (Reported) LAST FILLED #60 18 Guaifenesin/Dextromethorphan 5 Ml Syrup, 10 ML PO Q4H PRN for COUGH, (Reported) Guaifenesin/Dextromethorphan 5 Ml Syrup, 10 ML PO Q4H PRN for COUGH, (Reported) Lisinopril 5 Mg Tablet, 2.5 MG PO DAILY, (Reported) LAST FILLED #30 02-03-18 TAKES 1/2 (5MG) TABLET Metoprolol Succinate 25 Mg Tab.er.24h, 12.5 MG PO DAILY, (Reported) LAST FILLED #30 2-18 TAKES 1/2 (25MG) TABLET Tramadol HCl 50 Mg Tablet, 50 MG PO TID PRN for PAIN-MODERATE, (Reported) Tramadol HCl 50 Mg Tablet, 50 MG PO TID PRN for PAIN-MODERATE, (Reported) Patient Home Medication List Home Medication List Reviewed: Yes Past Puhesww-Lghltc-Evwtao Hx Patient Social History Alcohol Use: Denies Use Recreational Drug Use: No Smoking Status: Current Everyday Smoker Type Used: Cigarettes Recent Foreign Travel: No Contact w/Someone Who Travel: No Recent Infectious Disease Expo: No Recent Hopitalizations: No Immunizations Up To Date Tetanus Booster (TDap): Unknown PED Vaccines UTD: No Date of Pneumonia Vaccine: Jun 02, 2011 Date of Influenza Vaccine: Apr 02, 2017 Seasonal Allergies Seasonal Allergies: No Past Medical History Surgeries: Yes Appendectomy, Cardiac, CABG, Section, Coronary Stent, Hysterectomy, Oophorectomy, Orthopedic Respiratory: Yes (NO HOME O2, CONTINUES TO SMOKE 1 PPD) COPD Currently Using CPAP: No Cardiac: Yes (MULTIPLE CARDIAC CATHS- MULTIPLE STENTS; CABG) Coronary Artery Disease, Heart Attack, High Cholesterol, Irregular Heartbeat Neurological: Yes Neuropathy, Seizure Disorder, TIA Reproductive Disorders: No Female 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 ) Diabetes, Insulin dep HEENT: Yes Cataract Loss of Vision: Denies Hearing Impairment: Denies Cancer: No Psychosocial: Yes Anxiety, Depression Integumentary: No Blood Disorders: No Adverse Reaction/Blood Tranf: No Family Medical History FH: suicide FH: uterine cancer 19 MOTHER FHx: diabetes mellitus 19 MOTHER No Pertinent Family Hx Review of Systems-General Constitutional: malaise, weakness EENTM: no symptoms reported Respiratory: dyspnea on exertion, short of breath, other (Decreased breath sounds) Cardiovascular: other (History of heart attack) Gastrointestinal: no symptoms reported Genitourinary: no symptoms reported Physical Exam-General Problems Physical Exam Vital Signs Vital Signs - First Documented 04/20/18 14:00 Temp 98.0 Pulse 91 Resp 20 B/P (MAP) 95/61 (72) Pulse Ox 92 O2 Delivery Room Air Capillary Refill : General Appearance: thin Eyes: Bilateral Eye Normal Inspection HEENT: normal ENT inspection Neck: non-tender, full range of motion, supple Respiratory: no respiratory distress, no accessory muscle use, decreased breath sounds Cardiovascular: regular rate, rhythm, no murmur Gastrointestinal: non tender, soft Assessment/Plan Assessment/Plan Admission Diagnosis/Plan Myopathy. Unsteady gait. Congestive heart failure. Renal insufficiency. Diabetes. Coronary artery disease. Noncompliance history. Tobaccoism Admission Status: Inpatient Order (span 2 midnights) Reason for Inpatient Admission: Adenopathy. CHF. Unsteady gait. Short of breath. Congestive heart failure. Diabetes. Renal insufficiency Clinical Quality Measures DVT/VTE Risk/Contraindication: Risk Factor Score Per Nursin RFS Level Per Nursing on Admit: 4+=Very High MERRICK SIEGEL DO Apr 21, 2018 08:13
--- NOTE | 2018-04-21 08:54 | Occupational Ther Daily Note ---
OT Current Status-Daily Note Subjective Pt alert, sitting on EOB eating breakfast. Pt agrees to therapy. Physician and nrsg in room. No c/o pain. Stated that she did not sleep well last night. Mental Status/Objective Patient Orientation: Person, Place, Time, Situation Functional [place] Measure 0=Not Assessed/NA 4=Minimal Assistance 1=Total Assistance 5=Supervision or Setup 2=Maximal Assistance 6=Modified [place] 3=Moderate Assistance 7=Complete [place] Attachments: IV ADL-Treatment Functional [place] Measure 0=Not Assessed/NA 4=Minimal Assistance 1=Total Assistance 5=Supervision or Setup 2=Maximal Assistance 6=Modified [place] 3=Moderate Assistance 7=Complete IndependenceIRFPAI Quality Coding Scale 6 Independent with activity with or without an assistive device 5 Patient requires set up or clean up by helper. Patient completes activity by themselves 4 Supervision or touching assist (CGA). [place] provide cues , steadying assist 3 The helper provides less than half the effort to complete the activity 2 The helper provides more than half the effort to complete the activity 1 Dependent. The helper does all the effort to complete an activity 7 Patient refused to complete or attempt activity 9 The patient did not perform the activity before the current illness or injury 88 Not attempted due to Medical conditions or safety concerns Eating (FIM): 6 (Dentures. Able to open packages/containers by self. Uses regular utensils to eat with.) Eating (QC): 6 Grooming (FIM): 6 (Sitting at sink, pt is able to complete all grooming.) Oral Hygiene (QC): 6 Bathing (FIM): 5 (SBA using shower bench, hand held shower and grabbars pt is able to complete bathing.) Bathing Location: L Arm, R Arm, L Upper Leg, R Upper Leg, L Lower Leg ( including foot), R Lower Leg (including foot), Chest, Abdomen, Buttocks, Perineal Area Shower/Bathe Self (QC): 4 Upper Body (FIM): 5 (After set up, pt is able to complete by self.) Upper Body Dressing (QC): 5 Lower Body Dressing (FIM): 5 (After set up, pt is able to complete lower body dressing by self with supervision for safety.) Lower Body Dressing (QC): 4 On/Off Footwear (QC): 5 Transfers (B, C, W/C) (FIM): 5 (Close SBA using FWW.) Shower Transfer(FIM): 4 (CGA using shower bench, grabbars and FWW.) After therapy, pt transferred into bed with SBA. Lab in room. Call light/ phone in reach. All needs met in room. OT Short Term Goals Short Term Goals Time Frame: May 04, 2018 Eating(FIM): 5 Grooming(FIM): 5 Bathing(FIM): 4 Upper Body Dressing(FIM): 5 Lower Body Dressing(FIM): 4 Toileting(FIM): 4 Transfers (B,C,W/C) (FIM): 5 Toilet/Commode Transfer(FIM): 5 Shower Transfer(FIM): 4 Additional Short Term Goals: 1-Demonstrate ADL Tasks, 2-Verbalize Understanding , 3-ImproveStrength/Karen 1=Demonstrate adherence to instructed precautions during ADL tasks. 2=Patient will verbalize/demonstrate understanding of assistive devices/ modifications for ADL. 3=Patient will improve strength/tolerance for activity to enable patient to perform ADL's. OT Software Release Engineer Goals Software Release Engineer Goals Time Frame: May 11, 2018 Eating (FIM): 6 Eating (QC): 6 Groomin Oral Hygiene (QC): 6 Bathing(FIM): 5 Shower/Bathe Self (QC): 5 Upper Body Dressing(FIM): 6 Upper Body Dressing (QC): 6 Lower Body Dressing(FIM): 6 Lower Body Dressing (QC): 6 On/Off Footwear (QC): 6 Toileting(FIM): 6 Toileting Hygiene (QC): 6 Transfers (B,C,W/C) (FIM): 6 Toilet/Commode Transfer(FIM): 6 Toilet/Commode Transfer (QC): 6 Shower Transfer(FIM): 5 Additional Goals: 1-Demonstrate ADL Tasks, 2-Verbalize Understanding, 3- ImproveStrength/Karen 1=Demonstrate adherence to instructed precautions during ADL tasks. 2=Patient will verbalize/demonstrate understanding of assistive devices/ modifications for ADL. 3=Patient will improve strength/tolerance for activity to enable patient to perform ADL's. OT Education/Plan Discharge Recommendations Plan/Recommendations: Continue POC Treatment Plan/Plan of Care Patient would benefit from OT for education, treatment and training to promote independence in ADL's, mobility, safety and/or upper extremity function for ADL' s. Plan of Care: ADL Retraining, Functional Mobility, Group Exercise/Act as Ind, UE Funct Exercise/Act Treatment Duration: May 11, 2018 Frequency: At least 5 of 7 days/Wk (IRF) Estimated Hrs Per Day: 1.5 hours per day Agreement: Yes Rehab Potential: Guarded Time/GCodes Start Time: 08:00 Stop Time: 09:00 Total Time Billed (hr/min): 60 Billed Treatment Time 1 visit-ADL 4 (60 min) NIKKI ROGERS Apr 21, 2018 08:54
[2018-04-21] MEDS: FUROSEMIDE 40 MG (LASIX) TAB PO SCH (09:01)
[2018-04-21 09:02] LABS: HEMOGLOBIN 10.6 G/DL (11.5-16.0); MEAN PLATELET VOLUME 9.2 FL (7.4-10.4); RED BLOOD COUNT 3.59 10^6/uL (4.35-5.85); RED CELL DISTRIBUTION WIDTH 16.1 % (10.0-14.5); WHITE BLOOD COUNT 9.4 10^3/uL (4.3-11.0)
[2018-04-21 09:18] LABS: CALCIUM 8.5 MG/DL (8.5-10.1); CREATININE SERUM 2.37 MG/DL (0.60-1.30); POTASSIUM 4.3 MMOL/L (3.6-5.0)
--- NOTE | 2018-04-21 10:00 | Progress Note-Cardiology ---
Cardiology SOAP Progress Note Subjective: In bed. Denies any c/o CP, palpitations or dyspnea. States she continues to feel week. Objective: I&O/Vital Signs 04/21/18 04/21/18 04/21/18 04/21/18 05:09 07:18 07:47 09:04 Temp 97.9 Pulse 93 105 Resp 18 B/P (MAP) 108/64 (79) 112/64 (80) Pulse Ox 93 92 O2 Delivery Room Air Room Air Room Air Weight (Pounds): 151 Weight (Ounces): 8.0 Weight (Calculated Kilograms): 68.475843 Constitutional: well-developed, well-nourished Respiratory: No accessory muscle use, No respiratory distress; lungs clear to auscultation, other (prolonged expiratory phase ) Cardiovascular: regular rate-rhythm, S1 and S2, systolic murmur Gastrointestional: No tender; soft, round, audible bowel sounds Extremities: swelling (mild to mod bilat LE edema - improved) Neurologic/Psychiatric: other (flat affect), grossly intact Results/Procedures: Labs Laboratory Tests 04/20/18 19:21: Glucometer 236H 04/21/18 05:49: Glucometer 125H 04/21/18 08:53: White Blood Count 9.4, Red Blood Count 3.59L, Hemoglobin 10.6L, Hematocrit 33L, Mean Corpuscular Volume 92, Mean Corpuscular Hemoglobin 30, Mean Corpuscular Hemoglobin Concent 32, Red Cell Distribution Width 16.1H, Platelet Count 298, Mean Platelet Volume 9.2, Sodium Level 135, Potassium Level 4.3, Chloride Level 102, Carbon Dioxide Level 20L, Anion Gap 13, Blood Urea Nitrogen 14, Creatinine 2.37H, Estimat Glomerular Filtration Rate 20, BUN/Creatinine Ratio 6, Glucose Level 165H, Calcium Level 8.5, B-Type Natriuretic Peptide 3691.6H 04/21/18 09:57: Glucometer 221H A/P: Assessment: Elevated BNP: due to renal failure and/or ac systolic and diastolic CHF Generalized weakness with frequent falls - management per medical services Hyponatremia of undetermined etiology - management per medical services CAD. Ac NSTEMI on 09/30/17 due to occlusion of SVG to RI, treated with PCI: Cath and cor intervention of 09/30/17: CAD consisting of severe proximal disease of the LAD, proximal occlusion of the RI, moderately severe long stenosis in the proximal portion of LCX, patent stents in prox and distal RCA (Taxus 3 mm stents ) and moderately severe stenosis in a small caliber PDA from RCA; Occlusion of the SVG to RI treated successfully with deployment of Mini Vision 2.0 x 12 mm stent at the site of insertion of the graft into the RI and placement of Alpine Xience 3.0 x 38 mm stent in the proximal and mid portions of the graft; Patent, albeit small caliber, HUFF to the LAD; Normal LVEDP; Diaphragmatic akinesis of the left ventricle; LVEF approx 50%. 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 CT of head and cervical spine on 10/01/17: Chronic changes. No acute intracranial process is detected. Cervical spondylosis. No acute bony abnormality is detected Noncompliance, intermittent Plan: Continue current cardiac regimen Continue oral Lasix Monitor lab closely Physician Assessment Physician Assessment No cp or palp or syncope No shortness of breath at rest Gen malaise and weakness is persistent Lungs: good bilat air entry Cor: reg Ext: no c/c; mild edema Labs reviewed A&R * As documented in our note above that I updated (italics) and as noted below * I reviewed her CV issues with her and our treatment plan * I have again advised immediate and complete smoking cessation JERARDO SCHWARTZ Apr 21, 2018 10:00 DORA HASSAN MD FACP FAC CCDS Apr 21, 2018 13:11
[2018-04-21] MEDS: IBUPROFEN TABLET 200 MG TAB PO PRN (10:30)
--- NOTE | 2018-04-21 11:13 | Physical Therapy Daily Note ---
PT Daily Note-Current Subjective Pt laying R sidelying upon arrival. Pt reports headache of 8/10 & pain in BLE ( down front of leg) at 5/10). Nurse gives Motrin during tx. Pt agrees to PT. Mental Status Patient Orientation: Person, Place, Situation Transfers Functional [place] Measure 0=Not Assessed/NA 4=Minimal Assistance 1=Total Assistance 5=Supervision or Setup 2=Maximal Assistance 6=Modified [place] 3=Moderate Assistance 7=Complete IndependenceIRFPAI Quality Coding Scale 6 Independent with activity with or without an assistive device 5 Patient requires set up or clean up by helper. Patient completes activity by themselves 4 Supervision or touching assist (CGA). [place] provide cues , steadying assist 3 The helper provides less than half the effort to complete the activity 2 The helper provides more than half the effort to complete the activity 1 Dependent. The helper does all the effort to complete an activity 7 Patient refused to complete or attempt activity 9 The patient did not perform the activity before the current illness or injury 88 Not attempted due to Medical conditions or safety concerns Scootin Supine to/from Sit: 4 Sit to/from Stand: 4 Sit to Stand (QC): 4 Weight Bearing Right Lower Extremity: Right Weight Bearing/Tolerated Left Lower Extremity: Left Weight Bearing/Tolerated Gait Training Does the Patient Walk?: Yes Distance (FIM): 3=150 ft Distance: 150' Walk 10 feet (QC): 4 Walk 50 ft with 2 Turns(QC): 4 Walk 150 ft (QC): 4 Gait Level of Assist: 4 Gait Persons Needed: 1 Gait Assistive Device: FWW Pt walks with slow isael and antalgic gait pattern. Pt fatigues easily, needing frequent rest breaks. Exercises Seated Therapy Exercises: Ankle pumps, Long arc quads, Hip flexion, Kicking activity Seated Reps: 15 Treatments Pt transfers from Supine to EOB to Standing using FWW at CGA-Min A. Pt uses restroom before leaving room for tx. Pt ambulates in hallway using FWW at [facility] with rest breaks as needed. Pt completes Seated EX before returning to room to rest at end of tx with all needs met. Assessment Current Status: Good Progress Pt fatigues easily and needs frequent rest breaks. Pt has lack of motivation at times, needs encouragement to participate. PT Short Term Goals Short Term Goals Time Frame: Apr 27, 2018 Transfers (B,C,W/C) (FIM): 5 Gait (FIM): 1 Gait Distance Comment: 30' Gait Level of Assist: 4 Gait Assistive Device: FWW PT Tire And Tube Repairer Goals Tire And Tube Repairer Goals PT Tire And Tube Repairer Goals Time Frame: May 11, 2018 Transfers (B,C,W/C) (FIM): 6 Sit to Lying (QC): 6 Lying-Sitting on Side/Bed(QC): 6 Sit to Stand (QC): 6 Rollin Roll Left to Right (QC): 6 Chair/Djd-fk-Rhbdz Xfer(QC): 6 Car Transfer (QC): 6 Gait (FIM): 2 Distance: 50' Walk 10 feet (QC): 4 Walk 10ft-Uneven Surface(QC): 4 Walk 50ft with 2 Turns (QC): 4 Gait Level of Assist: 5 Gait Assistive Device: FWW Stairs (FIM): 2 # of Steps: 4 1 Step (curb) (QC): 4 4 Steps (QC): 4 Stairs Level Of Assist: 4 PT Plan Problem List Problem List: Activity Tolerance, Functional Strength, Safety, Balance, Gait Treatment/Plan Treatment Plan: Continue Plan of Care Treatment Plan: Bed Mobility, Concurrent Therapy, Education, Functional Activity Karen, Functional Strength, Group Therapy, Gait, Safety, Therapeutic Exercise, Transfers Treatment Duration: May 11, 2018 Frequency: At least 5 of 7 days/Wk (IRF) Estimated Hrs Per Day: 1.5 hours per day Patient and/or Family Agrees t: Yes Safety Risks/Education Patient Education: Gait Training, Transfer Techniques, Correct Positioning, Safety Issues Teaching Recipient: Patient Teaching Methods: Discussion Response to Teaching: Verbalize Understanding Time/GCodes Time In: 1015 Time Out: 1100 Total Billed Treatment Time: 45 Total Billed Treatment 1, GT (15m), FA (15m) & EX (15m) G Codes Necessary: SANDY Hitchcock SERVICE DESK SPECIALIST Apr 21, 2018 11:13
--- NOTE | 2018-04-21 15:33 | Therapy Group Daily Note ---
Therapy Daily Group Note Patient Education Topic Home Safety, Other List Below (Fall Prevention) Exercises LE Seated Exercise, UE Exercise Other/Notes Pt ambulates to PT/OT Group using [facility] at [facility]. Group consists of Introduction ( Name, Where you are from and An example of a fall you have had), Socialization, Pt led Seated UE/LE EX, Home Safety & Fall Prevention Techniques. Pt actively participated in Group by leading an exercise, giving personal examples of falls and fall prevention techniques pt has used. Pt actively listened to other patients during group. Pt returned to room at end of Group with all needs met. Start Time: 13:00 Stop Time: 14:20 Total Billed Treatment Time: 80 Total Billed Treatment 1, GRP SANDY WEATHERS ENVIRONMENTAL ADVISOR Apr 21, 2018 15:33
[2018-04-21 16:19] VITALS: BP 93/57
--- NOTE | 2018-04-21 19:59 | PM & R (SOAP) Progress Note ---
Subjective This was a face to face visit with the patient. Date Seen by Provider: Apr 21, 2018 Time Seen by Provider: 19:50 Subjective/Events-last exam Patient was seen in her room this evening Patient Min assist for transfers Appreciate Cardiology note.Adjusting well to unit Objective Physician Exam Last Set of Vital Signs Vital Signs Date Time Temp Pulse Resp B/P (MAP) Pulse Ox O2 Delivery O2 Flow Rate FiO2 04/21/18 16:19 97.6 82 14 93/57 (69) 92 Room Air Capillary Refill : I&O Intake and Output 04/21/18 00:00 Daily Weight Change No General: Alert, Oriented X3, Cooperative, No Acute Distress HEENT: Atraumatic, PERRLA, EOMI, Mucous Memb Moist/[place] Neck: Supple, No JVD Lungs: Other (decreased breath sounds) Heart: Regular Rate Abdomen: Normal Bowel Sounds, Soft, No Tenderness Extremities: No Edema Neuro: Other ( hip flex 3/5 knee flex 4-/5 knee ext 4-/5 dorsiflex 4/5) Psych/Mental Status: Mental Status NL Results Lab Data Laboratory Tests 04/20/18 19:21: Glucometer 236H 04/21/18 05:49: Glucometer 125H 04/21/18 08:53: White Blood Count 9.4, Red Blood Count 3.59L, Hemoglobin 10.6L, Hematocrit 33L, Mean Corpuscular Volume 92, Mean Corpuscular Hemoglobin 30, Mean Corpuscular Hemoglobin Concent 32, Red Cell Distribution Width 16.1H, Platelet Count 298, Mean Platelet Volume 9.2, Sodium Level 135, Potassium Level 4.3, Chloride Level 102, Carbon Dioxide Level 20L, Anion Gap 13, Blood Urea Nitrogen 14, Creatinine 2.37H, Estimat Glomerular Filtration Rate 20, BUN/Creatinine Ratio 6, Glucose Level 165H, Calcium Level 8.5, B-Type Natriuretic Peptide 3691.6H 04/21/18 09:57: Glucometer 221H 04/21/18 14:32: Glucometer 189H Assessment/Plan Assessment and Plan CHF myopathy with prox lower limb weakness HX of falls COPD Active tobaccoism DM HTN' Diabetic PN CAD s/p CABG Plan Continue PT/OT F/U with PCP and Cardiology Co-Morbidities that are continuing to impact the rehab process: (include details ) TAWNY GALEANO MD Apr 21, 2018 19:59
[2018-04-21] MEDS: CLOPIDOGREL 75 MG (PLAVIX) TABLET PO SCH (21:13)
[2018-04-21] MEDS: ATORVASTATIN 80 MG (LIPITOR) TABLET PO SCH (21:14)
[2018-04-21] MEDS: ASPIRIN E.C. 81 MG (ECOTRIN) TAB PO SCH (21:14)
[2018-04-22] MEDS: HYDROcodone/APAP 5 MG/325 MG (LORTAB) TAB PO PRN ×3 (01:49→18:42)
[2018-04-22 06:00] VITALS: BP 104/66
[2018-04-22 06:02] LABS: HEMOGLOBIN 9.1 G/DL (11.5-16.0); MEAN PLATELET VOLUME 9.3 FL (7.4-10.4); RED BLOOD COUNT 3.04 10^6/uL (4.35-5.85); RED CELL DISTRIBUTION WIDTH 15.8 % (10.0-14.5); WHITE BLOOD COUNT 8.3 10^3/uL (4.3-11.0)
[2018-04-22 06:22] LABS: CALCIUM 8.1 MG/DL (8.5-10.1); CREATININE SERUM 2.43 MG/DL (0.60-1.30); POTASSIUM 4.6 MMOL/L (3.6-5.0)
[2018-04-22] MEDS: inSUlin ASPART (NovoLOG) 1 UNIT/0.01 ML (CHARGE PER UNIT) SC SCH ×4 (06:57→19:45)
--- NOTE | 2018-04-22 07:49 | Diagnostic Imaging Report ---
INDICATION: Pleural effusion PA and lateral chest There are postop changes from CABG surgery. There are small pleural effusions. There is minimal basilar atelectasis. IMPRESSION: Basilar atelectasis and effusions appears unchanged from prior study. There is less vascular congestion compared to 04/20/2018. Dictated by: Dictated on workstation # [id number]
--- NOTE | 2018-04-22 08:31 | Progress Note (SOAP) ---
Subjective Time Seen by a Provider: 08:29 Subjective/Events-last exam Patient feeling weak. Patient getting around better with walker. Patient lost 3 pounds. BNP 3439 but coming down. Chest x-ray shows small pleural effusion better Patient feels washed out Objective Exam Vital Signs Date Time Temp Pulse Resp B/P (MAP) Pulse Ox O2 Delivery O2 Flow Rate FiO2 04/22/18 06:00 97.4 87 16 104/66 (79) 96 Room Air 04/21/18 20:53 93 Room Air 04/21/18 20:10 Room Air 04/21/18 16:19 97.6 82 14 93/57 (69) 92 Room Air 04/21/18 15:33 92 Room Air 04/21/18 09:04 Room Air I & O 04/22/18 07:00 Intake Total 700 ml Output Total 600 ml Balance 100 ml Capillary Refill : General Appearance: No Apparent Distress, Thin HEENT: Normal ENT Inspection Neck: Full Range of Motion, Normal Inspection Respiratory: No Accessory Muscle Use, No Respiratory Distress, Decreased Breath Sounds Cardiovascular: Regular Rate, Rhythm, No Murmur Results Lab Laboratory Tests 04/21/18 08:53 04/22/18 05:45 Laboratory Tests 04/21/18 08:53: White Blood Count 9.4, Red Blood Count 3.59L, Hemoglobin 10.6L, Hematocrit 33L, Mean Corpuscular Volume 92, Mean Corpuscular Hemoglobin 30, Mean Corpuscular Hemoglobin Concent 32, Red Cell Distribution Width 16.1H, Platelet Count 298, Mean Platelet Volume 9.2, Sodium Level 135, Potassium Level 4.3, Chloride Level 102, Carbon Dioxide Level 20L, Anion Gap 13, Blood Urea Nitrogen 14, Creatinine 2.37H, Estimat Glomerular Filtration Rate 20, BUN/Creatinine Ratio 6, Glucose Level 165H, Calcium Level 8.5, B-Type Natriuretic Peptide 3691.6H 04/21/18 09:57: Glucometer 221H 04/21/18 14:32: Glucometer 189H 04/21/18 20:59: Glucometer 186H 04/22/18 05:22: Glucometer 135H 04/22/18 05:45: White Blood Count 8.3, Red Blood Count 3.04L, Hemoglobin 9.1L, Hematocrit 28L, Mean Corpuscular Volume 92, Mean Corpuscular Hemoglobin 30, Mean Corpuscular Hemoglobin Concent 33, Red Cell Distribution Width 15.8H, Platelet Count 250, Mean Platelet Volume 9.3, Sodium Level 134L, Potassium Level 4.6, Chloride Level 103, Carbon Dioxide Level 20L, Anion Gap 11, Blood Urea Nitrogen 18, Creatinine 2.43H, Estimat Glomerular Filtration Rate 19, BUN/Creatinine Ratio 7 , Glucose Level 123H, Calcium Level 8.1L, B-Type Natriuretic Peptide 3439.6H Assessment/Plan Assessment/Plan Assess & Plan/Chief Complaint Myopathy. Unsteady gait. Congestive heart failure. Renal insufficiency. Diabetes. Coronary artery disease. Noncompliance history. Tobaccoism. . Plan/. Myopathy. Unsteady gait. Congestive heart failure better. Renal insufficiency stable. Diabetes. Coronary artery disease. Noncompliance history. Tobaccoism Clinical Quality Measures DVT/VTE Risk/Contraindication: Risk Factor Score Per Nursin RFS Level Per Nursing on Admit: 4+=Very High MERRICK SIEGEL DO Apr 22, 2018 08:31
--- NOTE | 2018-04-22 09:43 | Progress Note-Cardiology ---
Cardiology SOAP Progress Note Subjective: Up working with PT this morning. No c/o CP, palpitations, syncope or near syncope. C/O some lightheadedness with position changes. C/O mild exertional dyspnea. Objective: I&O/Vital Signs 04/22/18 04/22/18 04/22/18 04/22/18 06:00 09:00 10:10 15:49 Temp 97.4 98.7 97.8 Pulse 87 97 89 Resp 16 20 14 B/P (MAP) 104/66 (79) 147/83 (104) 92/56 (68) Pulse Ox 96 97 96 O2 Delivery Room Air Room Air Room Air Room Air 04/22/18 00:00 Intake Total 200 ml Balance 200 ml Weight (Pounds): 148 Weight (Ounces): 9.6 Weight (Calculated Kilograms): 67.993433 Constitutional: well-developed, well-nourished Respiratory: No accessory muscle use, No respiratory distress; lungs clear to auscultation, other (prolonged expiratory phase ) Cardiovascular: regular rate-rhythm, S1 and S2, systolic murmur Gastrointestional: No tender; soft, round, audible bowel sounds Extremities: swelling (mild bilat LE edema - improved) Neurologic/Psychiatric: other (flat affect), grossly intact Results/Procedures: Labs Laboratory Tests 04/21/18 20:59: Glucometer 186H 04/22/18 05:22: Glucometer 135H 04/22/18 05:45: White Blood Count 8.3, Red Blood Count 3.04L, Hemoglobin 9.1L, Hematocrit 28L, Mean Corpuscular Volume 92, Mean Corpuscular Hemoglobin 30, Mean Corpuscular Hemoglobin Concent 33, Red Cell Distribution Width 15.8H, Platelet Count 250, Mean Platelet Volume 9.3, Sodium Level 134L, Potassium Level 4.6, Chloride Level 103, Carbon Dioxide Level 20L, Anion Gap 11, Blood Urea Nitrogen 18, Creatinine 2.43H, Estimat Glomerular Filtration Rate 19, BUN/Creatinine Ratio 7 , Glucose Level 123H, Calcium Level 8.1L, B-Type Natriuretic Peptide 3439.6H 04/22/18 09:33: Glucometer 225H Laboratory Tests 04/21/18 08:53 04/22/18 05:45 Procedures NAME: [facility]A [facility] REC#: [id number] PT STATUS: ADM IN : 1940 PHYSICIAN: MERRICK SIEGEL DO ADMIT DATE: 04/20/18/[facility] Signed Date of Exam: 04/22/18 CHEST PA/LAT (2 VIEW) INDICATION: Pleural effusion PA and lateral chest There are postop changes from CABG surgery. There are small pleural effusions. There is minimal basilar atelectasis. IMPRESSION: Basilar atelectasis and effusions appears unchanged from prior study. There is less vascular congestion compared to 04/20/2018. Dictated by: Dictated on workstation # [id number] Dict: 04/22/1846 Trans: 04/22/18844 Interpreted by: DEDE YA MD Electronically signed by: DEDE YA MD 04/22/1845 A/P: Assessment: Elevated BNP: due to renal failure and/or ac systolic and diastolic CHF Generalized weakness with frequent falls - management per medical services Hyponatremia of undetermined etiology - management per medical services CAD. Ac NSTEMI on 09/30/17 due to occlusion of SVG to RI, treated with PCI: Cath and cor intervention of 09/30/17: CAD consisting of severe proximal disease of the LAD, proximal occlusion of the RI, moderately severe long stenosis in the proximal portion of LCX, patent stents in prox and distal RCA (Taxus 3 mm stents ) and moderately severe stenosis in a small caliber PDA from RCA; Occlusion of the SVG to RI treated successfully with deployment of Mini Vision 2.0 x 12 mm stent at the site of insertion of the graft into the RI and placement of Alpine Xience 3.0 x 38 mm stent in the proximal and mid portions of the graft; Patent, albeit small caliber, HUFF to the LAD; Normal LVEDP; Diaphragmatic akinesis of the left ventricle; LVEF approx 50%. 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 CT of head and cervical spine on 10/01/17: Chronic changes. No acute intracranial process is detected. Cervical spondylosis. No acute bony abnormality is detected Noncompliance, intermittent Plan: Continue current cardiac regimen Continue oral Lasix Monitor lab closely Physician Assessment Physician Assessment No cp or palp or syncope No shortness of breath at rest Gen malaise and weakness is persistent Lungs: good bilat air entry Cor: reg Ext: no c/c; mild edema Labs reviewed A&R * As documented in our note above that I updated (italics) and as noted below * I reviewed her CV issues with her and our treatment plan * I have again advised immediate and complete smoking cessation JERARDO SCHWARTZ Apr 22, 2018 09:42 DORA HASSAN MD FACP [facility] Apr 22, 2018 16:28
[2018-04-22] MEDS: GABAPENTIN 300 MG (NEURONTIN) CAP PO SCH ×2 (09:52→20:13)
[2018-04-22] MEDS: FUROSEMIDE 40 MG (LASIX) TAB PO SCH (09:52)
--- NOTE | 2018-04-22 10:06 | Occupational Ther Daily Note ---
OT Current Status-Daily Note Subjective Pt sleeping in bed, woke to name. Pt agrees to therapy. Pt c/o heartburn, fatigue and pain, reported to nrsg. Mental Status/Objective Patient Orientation: Person, Place, Time, Situation Functional [place] Measure 0=Not Assessed/NA 4=Minimal Assistance 1=Total Assistance 5=Supervision or Setup 2=Maximal Assistance 6=Modified [place] 3=Moderate Assistance 7=Complete [place] Attachments: IV ADL-Treatment Functional [place] Measure 0=Not Assessed/NA 4=Minimal Assistance 1=Total Assistance 5=Supervision or Setup 2=Maximal Assistance 6=Modified [place] 3=Moderate Assistance 7=Complete IndependenceIRFPAI Quality Coding Scale 6 Independent with activity with or without an assistive device 5 Patient requires set up or clean up by helper. Patient completes activity by themselves 4 Supervision or touching assist (CGA). [place] provide cues , steadying assist 3 The helper provides less than half the effort to complete the activity 2 The helper provides more than half the effort to complete the activity 1 Dependent. The helper does all the effort to complete an activity 7 Patient refused to complete or attempt activity 9 The patient did not perform the activity before the current illness or injury 88 Not attempted due to Medical conditions or safety concerns Upper Body (FIM): 5 (Supervision. Using FWW pt able to retrieve clothing, transport to designated area and don/doff.) Upper Body Dressing (QC): 4 Lower Body Dressing (FIM): 5 (Supervision. Using FWW pt able to retrieve clothing, transport to designated area and don/doff.) Lower Body Dressing (QC): 4 On/Off Footwear (QC): 5 Toileting (FIM): 6 (Using grabbar and FWW pt able to manipulate clothing and cleanse self.) Toileting Hygiene (QC): 6 Toilet/Commode Transfer (FIM): 6 (Using grabbar and FWW, pt able to complete.) Toilet Transfer (QC): 6 Other Treatment Pt ambulated to therapy gym using FWW. Arm bike completed time set for 15 min at 20 bailey resistance to increase strength and activity tolerance, increased time to complete due multiple recovery breaks taken. After therapy, pt lying in bed with call light/phone in reach. All needs met in room. OT Short Term Goals Short Term Goals Time Frame: May 04, 2018 Eating(FIM): 5 Grooming(FIM): 5 Bathing(FIM): 4 Upper Body Dressing(FIM): 5 Lower Body Dressing(FIM): 4 Toileting(FIM): 4 Transfers (B,C,W/C) (FIM): 5 Toilet/Commode Transfer(FIM): 5 Shower Transfer(FIM): 4 Additional Short Term Goals: 1-Demonstrate ADL Tasks, 2-Verbalize Understanding , 3-ImproveStrength/Karen 1=Demonstrate adherence to instructed precautions during ADL tasks. 2=Patient will verbalize/demonstrate understanding of assistive devices/ modifications for ADL. 3=Patient will improve strength/tolerance for activity to enable patient to perform ADL's. OT Senior Living Goals Senior Living Goals Time Frame: May 11, 2018 Eating (FIM): 6 Eating (QC): 6 Groomin Oral Hygiene (QC): 6 Bathing(FIM): 5 Shower/Bathe Self (QC): 5 Upper Body Dressing(FIM): 6 Upper Body Dressing (QC): 6 Lower Body Dressing(FIM): 6 Lower Body Dressing (QC): 6 On/Off Footwear (QC): 6 Toileting(FIM): 6 Toileting Hygiene (QC): 6 Transfers (B,C,W/C) (FIM): 6 Toilet/Commode Transfer(FIM): 6 Toilet/Commode Transfer (QC): 6 Shower Transfer(FIM): 5 Additional Goals: 1-Demonstrate ADL Tasks, 2-Verbalize Understanding, 3- ImproveStrength/Karen 1=Demonstrate adherence to instructed precautions during ADL tasks. 2=Patient will verbalize/demonstrate understanding of assistive devices/ modifications for ADL. 3=Patient will improve strength/tolerance for activity to enable patient to perform ADL's. OT Education/Plan Discharge Recommendations Plan/Recommendations: Continue POC Treatment Plan/Plan of Care Patient would benefit from OT for education, treatment and training to promote independence in ADL's, mobility, safety and/or upper extremity function for ADL' s. Plan of Care: ADL Retraining, Functional Mobility, Group Exercise/Act as Ind, UE Funct Exercise/Act Treatment Duration: May 11, 2018 Frequency: At least 5 of 7 days/Wk (IRF) Estimated Hrs Per Day: 1.5 hours per day Agreement: Yes Rehab Potential: Guarded Time/GCodes Start Time: 09:00 Stop Time: 10:00 Total Time Billed (hr/min): 60 Billed Treatment Time 1 visit-ADL 2 (35 min) EX 2 (25 min) NIKKI ROGERS Apr 22, 2018 10:06
[2018-04-22 10:10] VITALS: BP 147/83
[2018-04-22] MEDS: RT-ALBUTEROL/IPRATROPIUM 3 ML (DUONEB) VIAL INH SCH ×3 (10:10→20:05)
[2018-04-22] MEDS: ONDANSETRON 4 MG (ZOFRAN) ORAL DISSOLVE TAB PO PRN (10:18)
[2018-04-22] MEDS: CALCIUM CARBONATE 500 MG (TUMS) TAB.CHEW PO PRN (10:20)
[2018-04-22] MEDS: lisINopril 5 MG (PRINIVIL) TABLET PO SCH (10:21)
--- NOTE | 2018-04-22 11:00 | Physical Therapy Daily Note ---
PT Daily Note-Current Subjective Upon entering room pt. sitting on EOB with bath basin in lap vomiting with substantial amount in basin. Nursing present. BP and temp all normal. Pt. c/o nausea and headache. This BIOCHEMISTRY TECHNICIAN asked pt. if she felt she had made progress here on unit, pt. responded "you mean physically or with my head"? Pt. then explained that she has been having difficulty remembering things. When asked by this BIOCHEMISTRY TECHNICIAN when she had last had a BM pt. states she hasnt had one for 3 days. COLE over hearing this states pt. had BM earlier this morning. Nursing administered anti nausea meds and Tums. This BIOCHEMISTRY TECHNICIAN offered warmed blanket, cool clothes and warm tea. Pt. agreed to lay supine for LE ther ex Pain Numeric Pain Scale: 5-Moderate Pain Location: Medial Location Body Site: Head Pain Description: Throbbing Comment: nausea as reprted above Mental Status Patient Orientation: Person, Place, Situation Transfers Functional [place] Measure 0=Not Assessed/NA 4=Minimal Assistance 1=Total Assistance 5=Supervision or Setup 2=Maximal Assistance 6=Modified [place] 3=Moderate Assistance 7=Complete IndependenceIRFPAI Quality Coding Scale 6 Independent with activity with or without an assistive device 5 Patient requires set up or clean up by helper. Patient completes activity by themselves 4 Supervision or touching assist (CGA). [place] provide cues , steadying assist 3 The helper provides less than half the effort to complete the activity 2 The helper provides more than half the effort to complete the activity 1 Dependent. The helper does all the effort to complete an activity 7 Patient refused to complete or attempt activity 9 The patient did not perform the activity before the current illness or injury 88 Not attempted due to Medical conditions or safety concerns Transfers (B, C, W/C) (FIM): 6 Scootin Rollin Supine to/from Sit: 6 Sit to/from Stand: 6 Bed to/from Chair: 6 Weight Bearing Right Lower Extremity: Right Weight Bearing/Tolerated Left Lower Extremity: Left Weight Bearing/Tolerated Gait Training Does the Patient Walk?: Yes Gait (FIM): 5 Distance (FIM): 3=150 ft (x1) Gait Level of Assist: 5 Gait Persons Needed: 1 Gait Assistive Device: FWW slow careful, flexed posture, protective so as not to stir up her nausea Exercises Supine Ex: Bridging, Ankle pumps, Quad Set, Rolling, Glut sets, Heel Slides, Short Arc Quads, Scooting, Hip abd/add Supine Reps: 10 (x2) Seated Therapy Exercises: Ankle pumps, Sit to stand, Long arc quads, Hip abd/ add Seated Reps: 12 Assessment Current Status: Fair Progress nausea and headache limit participation this date, pt. states the warmed blanket helps her abdomen PT Short Term Goals Short Term Goals Time Frame: Apr 27, 2018 Transfers (B,C,W/C) (FIM): 5 Gait (FIM): 1 Gait Distance Comment: 30' Gait Level of Assist: 4 Gait Assistive Device: FWW PT Prison Goals Privacy Manager Goals PT Prison Goals Time Frame: May 11, 2018 Transfers (B,C,W/C) (FIM): 6 Sit to Lying (QC): 6 Lying-Sitting on Side/Bed(QC): 6 Sit to Stand (QC): 6 Rollin Roll Left to Right (QC): 6 Chair/Jgt-cl-Jruxm Xfer(QC): 6 Car Transfer (QC): 6 Gait (FIM): 2 Distance: 50' Walk 10 feet (QC): 4 Walk 10ft-Uneven Surface(QC): 4 Walk 50ft with 2 Turns (QC): 4 Gait Level of Assist: 5 Gait Assistive Device: FWW Stairs (FIM): 2 # of Steps: 4 1 Step (curb) (QC): 4 4 Steps (QC): 4 Stairs Level Of Assist: 4 PT Plan Treatment/Plan Treatment Plan: Continue Plan of Care Treatment Plan: Bed Mobility, Concurrent Therapy, Education, Functional Activity Karen, Functional Strength, Group Therapy, Gait, Safety, Therapeutic Exercise, Transfers Treatment Duration: May 11, 2018 Frequency: At least 5 of 7 days/Wk (IRF) Estimated Hrs Per Day: 1.5 hours per day Patient and/or Family Agrees t: Yes Safety Risks/Education Patient Education: Gait Training, Transfer Techniques, Correct Positioning, Disease Process, Safety Issues Teaching Recipient: Patient Teaching Methods: Demonstration, Discussion Response to Teaching: Verbalize Understanding, Return Demonstration, Reinforcement Needed Time/GCodes Time In: 1000 Time Out: 1100 Total Billed Treatment Time: 60 Total Billed Treatment 1,EX35,FA25 G Codes Necessary: ISAIAH Rosenthal BIOCHEMISTRY TECHNICIAN Apr 22, 2018 11:00
--- NOTE | 2018-04-22 14:42 | Therapy Group Daily Note ---
Therapy Daily Group Note Patient Education Topic Energy Cons, Exercises Exercises LE Seated Exercise, UE Exercise Other/Notes Pt was an active participant in OT/PT group. She introduced herself and shared her favorite Halloween memory. She contributed to discussion/education on activity tolerance and energy conservation and also education/discussion on benefits of exercise. She did seated UE and LE exercises and led one for the group. Sh walked back to her room with SBA, FWW and was left up in bed, all needs met. Start Time: 13:00 Stop Time: 14:10 Total Billed Treatment Time: 70 Total Billed Treatment visit, 70 minutes group JAIME DEVLIN OT Apr 22, 2018 14:42
[2018-04-22 15:49] VITALS: BP 92/56
--- NOTE | 2018-04-22 17:38 | PM & R (SOAP) Progress Note ---
Subjective This was a face to face visit with the patient. Date Seen by Provider: Apr 22, 2018 Time Seen by Provider: 12:00 Subjective/Events-last exam Patient was seen in her room this noon hour Patient c/o Nausa and Constipation Meds adjusted Patient Modified Independent for transfers Date Identified: Apr 22, 2018 Time Identified: 12:00 Medication Intervention: senokot s and zofran ordered Discussed case with jaw skinner of Systems Gastrointestinal: Nausea, Constipation Objective Physician Exam Last Set of Vital Signs Vital Signs Date Time Temp Pulse Resp B/P (MAP) Pulse Ox O2 Delivery O2 Flow Rate FiO2 04/22/18 15:49 97.8 89 14 92/56 (68) 96 Room Air Capillary Refill : I&O Intake and Output 04/22/18 00:00 Intake Total 500 ml Balance 500 ml Intake Oral 500 ml # Voids 4 General: Alert, Oriented X3, Cooperative, No Acute Distress HEENT: Atraumatic, PERRLA, EOMI, Mucous Memb Moist/[place] Neck: Supple, No JVD Lungs: Other (decreased breath sounds) Heart: Regular Rate Abdomen: Normal Bowel Sounds, Soft, No Tenderness Extremities: No Edema Neuro: Other ( hip flex 3/5 knee flex 4-/5 knee ext 4-/5 dorsiflex 4/5) Psych/Mental Status: Mental Status NL Results Lab Data Laboratory Tests 04/20/18 19:21: Glucometer 236H 04/21/18 05:49: Glucometer 125H 04/21/18 08:53: White Blood Count 9.4, Red Blood Count 3.59L, Hemoglobin 10.6L, Hematocrit 33L, Mean Corpuscular Volume 92, Mean Corpuscular Hemoglobin 30, Mean Corpuscular Hemoglobin Concent 32, Red Cell Distribution Width 16.1H, Platelet Count 298, Mean Platelet Volume 9.2, Sodium Level 135, Potassium Level 4.3, Chloride Level 102, Carbon Dioxide Level 20L, Anion Gap 13, Blood Urea Nitrogen 14, Creatinine 2.37H, Estimat Glomerular Filtration Rate 20, BUN/Creatinine Ratio 6, Glucose Level 165H, Calcium Level 8.5, B-Type Natriuretic Peptide 3691.6H 04/21/18 09:57: Glucometer 221H 04/21/18 14:32: Glucometer 189H 04/21/18 20:59: Glucometer 186H 04/22/18 05:22: Glucometer 135H 04/22/18 05:45: White Blood Count 8.3, Red Blood Count 3.04L, Hemoglobin 9.1L, Hematocrit 28L, Mean Corpuscular Volume 92, Mean Corpuscular Hemoglobin 30, Mean Corpuscular Hemoglobin Concent 33, Red Cell Distribution Width 15.8H, Platelet Count 250, Mean Platelet Volume 9.3, Sodium Level 134L, Potassium Level 4.6, Chloride Level 103, Carbon Dioxide Level 20L, Anion Gap 11, Blood Urea Nitrogen 18, Creatinine 2.43H, Estimat Glomerular Filtration Rate 19, BUN/Creatinine Ratio 7 , Glucose Level 123H, Calcium Level 8.1L, B-Type Natriuretic Peptide 3439.6H 04/22/18 09:33: Glucometer 225H 04/22/18 17:19: Glucometer 316H Assessment/Plan Assessment and Plan 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
--- NOTE | 2018-04-22 17:46 | Individualized Plan of Care ---
Individualized Plan of Care Rehab Nursing IPOC Order Admission Date Apr 20, 2018 at 12:15 Current Orders Orders Pt Evaluate/Treat Request (04/20/18 11:50) Request Ot Evaluate & Treat (04/20/18 11:50) Request For Cognitive Services (04/20/18 11:50) Cho 60g/M 1snack (16-2000 Oscar) (04/20/18 Lunch) Admission Order(Inpt,Obs,Sdc) (04/20/18 13:58) Vital Signs: Routine (Order) 08,16,00 (04/20/18 13:58) Sequential Compression Device 08,20 (04/20/18 13:58) Pickle Maker-Inpt Rehab Con (04/20/18 13:58) Rehab Nursing Orders-Ipoc (04/20/18 13:58) Turn And Reposition Q2HR (04/20/18 13:58) Intake & Output 06,14,22 (04/20/18 13:58) Precautions (Aru) (04/20/18 13:58) Weekly Weight (Lbs) WEEK (04/20/18 13:58) Code/Resuscitation (04/20/18 13:58) Initiate Admission Nursing Pro .admission (04/20/18 13:58) Code/Resuscitation (04/20/18 14:02) Oxygen-Administer 07,19 (04/20/18 14:02) Cho 60g/M 3snack (16-2000 Oscar) (04/20/18 Dinner) Albuterol/Ipra Inhalation Soln (Duoneb I (04/20/18 14:15) Aspirin Enteric Coated Tablet (Ecotrin T (04/20/18 21:00) Atorvastatin Tablet (Lipitor Tablet) (04/20/18 21:00) Clopidogrel Tablet (Plavix Tablet) (04/20/18 21:00) Gabapentin Capsule/Tablet (Neurontin Cap (04/20/18 21:00) Hydrocodone/Apap 5/325 Tablet (Lortab 5 (04/20/18 14:15) Lisinopril Tablet (Zestril Tablet) (04/21/18 09:00) Metoprolol Succinate (Xl) Tab (Toprol Xl (04/21/18 09:00) Oxygen Delivery Set Up (04/20/18 14:02) Oxygen Delivery Set Up (04/20/18 14:02) Svn Small Volume Nebulizer (04/20/18 14:02) Consult Physician (04/20/18 14:06) Albuterol/Ipra Inhalation Soln (Duoneb I (04/20/18 15:00) Svn Small Volume Nebulizer (04/20/18 14:40) Rt Request For Service (04/20/18 14:42) Influenza Quad (5+Y[place]) 2018- (Afluria (04/20/18 15:00) Patient Visit (04/20/18 ) Pt Eval Moderate Complexity (04/20/18 ) Patient Visit (04/20/18 ) Ambulate 08,12,20 (04/20/18 18:53) Sequential Compression Device 08,20 (04/20/18 18:53) Dvt/Vte Risk - Notifiy Physici 08 (04/20/18 18:53) Insulin Aspart (Novolog) (Novolog (Charg (04/20/18 19:45) Tramadol Tablet (Ultram Tablet) (04/20/18 20:00) Ibuprofen Tablet (Motrin Tablet) (04/20/18 20:30) Patient Visit (04/20/18 ) Speech Sound Lang Comp (04/20/18 ) Basic Metabolic Panel (04/22/18 06:00) Basic Metabolic Panel (04/21/18 08:00) BNP (04/22/18 06:00) BNP (04/21/18 08:00) Cbc No Diff (04/22/18 06:00) Cbc No Diff (04/21/18 08:00) Chest Pa/Lat (2 View) (04/22/18 06:00) Furosemide Tablet (Lasix Tablet) (04/21/18 09:00) Consult Physician (04/21/18 08:40) Daily Weight 06 (04/21/18 08:40) Patient Visit (04/20/18 ) Exercise Therap, Ea 15 Min (04/20/18 ) Gait Training, Ea 15 Min (04/20/18 ) Functional Activities, Ea 15 (04/20/18 ) Patient Visit (04/21/18 ) Gait Training, Ea 15 Min (04/21/18 ) Functional Activities, Ea 15 (04/21/18 ) Exercise Therap, Ea 15 Min (04/21/18 ) Patient Visit (04/21/18 ) Therapeutic, Group (04/21/18 ) Calcium Carbonate Chew Tablet (Antacid C (04/22/18 10:15) Ondansetron Oral Dissolve Tab (Zofran (04/22/18 10:15) Senna S Tablet (Senokot S Tablet) (04/22/18 21:00) Patient Visit (04/22/18 ) Exercise Therap, Ea 15 Min (04/22/18 ) Functional Activities, Ea 15 (04/22/18 ) Rehab Nursing Orders: Ongoing Assess. of Cognitive Status, Ongoing Assess. of Function Status, Disease Management & Educaiton, DVT Prophylaxis, Fall Prevention, Fluid/Electrolyte/Nutrition Mgmt, Infection Prevention, Medication Management & Education, Management of Risks & Complications, Management of Skin Intergrity, Nutrition Management, Patient/Family Support PT IPOC Problem List: Activity Tolerance, Functional Strength, Safety, Balance, Gait Treatment Plan: Continue Plan of Care Bed Mobility, Concurrent Therapy, Education, Functional Activity Karen, Functional Strength, Group Therapy, Gait, Safety, Therapeutic Exercise, Transfers Treatment Duration: May 11, 2018 Frequency: At least 5 of 7 days/Wk (IRF) Estimated Hrs Per Day: 1.5 hours per day OT IPOC Problems: Decreased Activ Tolerance, Impaired I ADL's, Impaired Self-Care Skills OT Treatment, Training and Edu: Yes Plan of Care: ADL Retraining, Functional Mobility, Group Exercise/Act as Ind, UE Funct Exercise/Act Treatment Duration: May 11, 2018 Frequency: At least 5 of 7 days/Wk (IRF) Estimated Hrs Per Day: 1.[address] IPOC Speech Therapy Treatment Plan: Discontinue ST Treatment Duration: Apr 22, 2018 Frequency: Modified Program (IRF) (0) Estimated Hrs Per Day: Other ([id number]) Pickle Maker/Case Mgmt Pickle Maker/Case Managemen: Discharge Planning, Patient/Family Counseling Dietitian/Case Liner Dietitian/Case Liner to monitor nutritional status and make changes and/or recommendations as needed and work with speech pathology on dietary upgrades as the occur. Physician IPOC Medical Issues being managed closely and that require the 24 hour availability of a physician: CHF COPD Tobaccoism Diabetic PN CAD DM IGC code 03.8 Etiologic DX CHF myopathy Brief Synthesis of Preadmission Screen, Post-Admission Evaluation, and Therapy Evaluations: 77 yo female who had been Independent prior to having a bout of CHF with resulting Weakness LES > upper limbs Referred to IRU for ongoing care and therapies Lives with spouse in [place]. PMH Tobaccoism DM COPD HTN Hx of falls CAD Diabetic PN Medical Prognosis: Good Anticipated Length of Stay: 05-06-18 Modified Independent for adls and mobility skills Anticipated d/c Destination: Home with [facility] and spouse TAWNY GALEANO MD Apr 22, 2018 17:45
[2018-04-22] MEDS: ASPIRIN E.C. 81 MG (ECOTRIN) TAB PO SCH (20:13)
[2018-04-22] MEDS: SENNA W/DOCUSATE (SENOKOT S) TABLET PO SCH (20:13)
[2018-04-22] MEDS: CLOPIDOGREL 75 MG (PLAVIX) TABLET PO SCH (20:13)
[2018-04-22] MEDS: ATORVASTATIN 80 MG (LIPITOR) TABLET PO SCH (20:13)
[2018-04-23] MEDS: inSUlin ASPART (NovoLOG) 1 UNIT/0.01 ML (CHARGE PER UNIT) SC SCH ×4 (05:08→21:33)
[2018-04-23 05:27] VITALS: BP 110/71
[2018-04-23] MEDS: HYDROcodone/APAP 5 MG/325 MG (LORTAB) TAB PO PRN ×2 (06:29→10:02)
[2018-04-23] MEDS: RT-ALBUTEROL/IPRATROPIUM 3 ML (DUONEB) VIAL INH SCH ×4 (07:41→18:54)
--- NOTE | 2018-04-23 07:53 | PM & R (SOAP) Progress Note ---
Subjective This was a face to face visit with the patient. Date Seen by Provider: Apr 23, 2018 Time Seen by Provider: 07:30 Subjective/Events-last exam Patient was seen in her room this AM Patient Modified Independent for transfers.appreciate labs and CXR Objective Physician Exam Last Set of Vital Signs Vital Signs Date Time Temp Pulse Resp B/P (MAP) Pulse Ox O2 Delivery O2 Flow Rate FiO2 04/23/18 07:42 91 Room Air 04/23/18 05:27 99.2 94 18 110/71 (84) Capillary Refill : I&O Intake and Output 04/23/18 00:00 Intake Total 1460 ml Output Total 600 ml Balance 860 ml Intake Oral 1460 ml Output Urine Total 600 ml # Voids 6 General: Alert, Oriented X3, Cooperative, No Acute Distress HEENT: Atraumatic, PERRLA, EOMI, Mucous Memb Moist/[place] Neck: Supple, No JVD Lungs: Other (decreased breath sounds) Heart: Regular Rate Abdomen: Normal Bowel Sounds, Soft, No Tenderness Extremities: No Edema Neuro: Other ( hip flex 3/5 knee flex 4-/5 knee ext 4-/5 dorsiflex 4/5) Psych/Mental Status: Mental Status NL Results Lab Data Laboratory Tests 04/20/18 19:21: Glucometer 236H 04/21/18 05:49: Glucometer 125H 04/21/18 08:53: White Blood Count 9.4, Red Blood Count 3.59L, Hemoglobin 10.6L, Hematocrit 33L, Mean Corpuscular Volume 92, Mean Corpuscular Hemoglobin 30, Mean Corpuscular Hemoglobin Concent 32, Red Cell Distribution Width 16.1H, Platelet Count 298, Mean Platelet Volume 9.2, Sodium Level 135, Potassium Level 4.3, Chloride Level 102, Carbon Dioxide Level 20L, Anion Gap 13, Blood Urea Nitrogen 14, Creatinine 2.37H, Estimat Glomerular Filtration Rate 20, BUN/Creatinine Ratio 6, Glucose Level 165H, Calcium Level 8.5, B-Type Natriuretic Peptide 3691.6H 04/21/18 09:57: Glucometer 221H 04/21/18 14:32: Glucometer 189H 04/21/18 20:59: Glucometer 186H 04/22/18 05:22: Glucometer 135H 04/22/18 05:45: White Blood Count 8.3, Red Blood Count 3.04L, Hemoglobin 9.1L, Hematocrit 28L, Mean Corpuscular Volume 92, Mean Corpuscular Hemoglobin 30, Mean Corpuscular Hemoglobin Concent 33, Red Cell Distribution Width 15.8H, Platelet Count 250, Mean Platelet Volume 9.3, Sodium Level 134L, Potassium Level 4.6, Chloride Level 103, Carbon Dioxide Level 20L, Anion Gap 11, Blood Urea Nitrogen 18, Creatinine 2.43H, Estimat Glomerular Filtration Rate 19, BUN/Creatinine Ratio 7 , Glucose Level 123H, Calcium Level 8.1L, B-Type Natriuretic Peptide 3439.6H 04/22/18 09:33: Glucometer 225H 04/22/18 17:19: Glucometer 316H 04/22/18 22:39: Glucometer 152H 04/23/18 05:06: Glucometer 164H Assessment/Plan Assessment and Plan 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
[2018-04-23] MEDS: CALCIUM CARBONATE 500 MG (TUMS) TAB.CHEW PO PRN ×2 (09:15→11:58)
[2018-04-23] MEDS: FUROSEMIDE 40 MG (LASIX) TAB PO SCH (09:16)
[2018-04-23] MEDS: SENNA W/DOCUSATE (SENOKOT S) TABLET PO SCH ×2 (09:16→20:09)
[2018-04-23] MEDS: lisINopril 5 MG (PRINIVIL) TABLET PO SCH (09:16)
[2018-04-23] MEDS: GABAPENTIN 300 MG (NEURONTIN) CAP PO SCH ×2 (09:16→20:09)
[2018-04-23] MEDS: ONDANSETRON 4 MG (ZOFRAN) ORAL DISSOLVE TAB PO PRN (09:20)
--- NOTE | 2018-04-23 10:45 | Physical Therapy Daily Note ---
PT Daily Note-Current Subjective Patient in bed pre tx, agrees to PT after encouragement. Patient has no complaints of pain but states that her legs are shaky. Appearance Patient in bed post tx with nurse call, phone, tray, all needs met. Mental Status Patient Orientation: Person, Place, Situation Transfers Functional [place] Measure 0=Not Assessed/NA 4=Minimal Assistance 1=Total Assistance 5=Supervision or Setup 2=Maximal Assistance 6=Modified [place] 3=Moderate Assistance 7=Complete IndependenceIRFPAI Quality Coding Scale 6 Independent with activity with or without an assistive device 5 Patient requires set up or clean up by helper. Patient completes activity by themselves 4 Supervision or touching assist (CGA). [place] provide cues , steadying assist 3 The helper provides less than half the effort to complete the activity 2 The helper provides more than half the effort to complete the activity 1 Dependent. The helper does all the effort to complete an activity 7 Patient refused to complete or attempt activity 9 The patient did not perform the activity before the current illness or injury 88 Not attempted due to Medical conditions or safety concerns Transfers (B, C, W/C) (FIM): 5 Scootin Rollin Supine to/from Sit: 6 Sit to/from Stand: 5 Bed to/from Chair: 5 Weight Bearing Right Lower Extremity: Right Weight Bearing/Tolerated Left Lower Extremity: Left Weight Bearing/Tolerated Gait Training Gait (FIM): 4 Distance: 150'x2 Gait Level of Assist: 4 Gait Persons Needed: 1 Gait Assistive Device: FWW Patient ambulated most of the way each trip with SBA but after about 100' her left knee would start to buckle and she needed CGA, she was always able to catch herself with her arms on the walker. Treatments bed mobility and transfers, ambulation Assessment Current Status: Fair Progress left knee buckling on occasion PT Short Term Goals Short Term Goals Time Frame: Apr 27, 2018 Transfers (B,C,W/C) (FIM): 5 Gait (FIM): 1 Gait Distance Comment: 30' Gait Level of Assist: 4 Gait Assistive Device: FWW PT Vending Machine Assembler Goals Retirement Goals PT Retirement Goals Time Frame: May 11, 2018 Transfers (B,C,W/C) (FIM): 6 Sit to Lying (QC): 6 Lying-Sitting on Side/Bed(QC): 6 Sit to Stand (QC): 6 Rollin Roll Left to Right (QC): 6 Chair/Qtb-nd-Aijjt Xfer(QC): 6 Car Transfer (QC): 6 Gait (FIM): 2 Distance: 50' Walk 10 feet (QC): 4 Walk 10ft-Uneven Surface(QC): 4 Walk 50ft with 2 Turns (QC): 4 Gait Level of Assist: 5 Gait Assistive Device: FWW Stairs (FIM): 2 # of Steps: 4 1 Step (curb) (QC): 4 4 Steps (QC): 4 Stairs Level Of Assist: 4 PT Plan Problem List Problem List: Activity Tolerance, Functional Strength, Safety, Balance, Gait, Transfer, Bed Mobility Treatment/Plan Treatment Plan: Continue Plan of Care Treatment Plan: Bed Mobility, Concurrent Therapy, Education, Functional Activity Karen, Functional Strength, Group Therapy, Gait, Safety, Therapeutic Exercise, Transfers Treatment Duration: May 11, 2018 Frequency: At least 5 of 7 days/Wk (IRF) Estimated Hrs Per Day: 1.5 hours per day Patient and/or Family Agrees t: Yes Safety Risks/Education Patient Education: Gait Training, Transfer Techniques, Correct Positioning, Safety Issues Teaching Recipient: Patient Teaching Methods: Demonstration, Discussion Response to Teaching: Reinforcement Needed Time/GCodes Time In: 1030 Time Out: 1043 Total Billed Treatment Time: 13 Total Billed Treatment 1 visit GT 13' DONTE CHAO PT Apr 23, 2018 10:44
--- NOTE | 2018-04-23 13:16 | Progress Note-Hospitalist ---
Subjective HPI/CC On Admission Date Seen by Provider: Apr 23, 2018 Time Seen by Provider: 12:30 Subjective/Events-last exam Patient has heartburn a lot and requests more meds so I ordered PPI and Carafate Pain is about the same BM+ Breathing ok Review of Systems Gastrointestinal: Other (GERD) Objective Exam Vital Signs Vital Signs Date Time Temp Pulse Resp B/P (MAP) Pulse Ox O2 Delivery O2 Flow Rate FiO2 04/23/18 08:34 Room Air 04/23/18 07:42 91 04/23/18 05:27 99.2 94 18 110/71 (84) Capillary Refill : General Appearance: No Apparent Distress, WD/WN, Chronically ill Respiratory: Chest Non Tender, Lungs Clear, Normal Breath Sounds, No Accessory Muscle Use, No Respiratory Distress Cardiovascular: Regular Rate, Rhythm, No Edema, No Gallop, No JVD, No Murmur, Normal Peripheral Pulses Neurologic/Psychiatric: Alert, Oriented x3, No Motor/Sensory Deficits, Normal Mood/Affect Results/Procedures Lab Patient resulted labs reviewed. Assessment/Plan Assessment and Plan Assess & Plan/Chief Complaint Assessment: CHF Debility GERD Smoker HTN Plan: PPI Carafate Diagnosis/Problems Diagnosis/Problems (1) Heartburn Status: Acute (2) Myopathy Status: Acute (3) Uncontrolled diabetes mellitus Status: Chronic Qualifiers: Diabetes mellitus type: type 2 Glycemic state: with hyperglycemia Qualified Codes: E11.65 - Type 2 diabetes mellitus with hyperglycemia (4) CAD (coronary artery disease) Status: Chronic Qualifiers: Coronary Disease-Associated Artery/Lesion type: [place] artery [place] vs. transplanted heart: [place] heart Associated angina: with stable angina Qualified Codes: I25.118 - Atherosclerotic heart disease of [place] coronary artery with other forms of angina pectoris Clinical Quality Measures DVT/VTE Risk/Contraindication: Risk Factor Score Per Nursin RFS Level Per Nursing on Admit: 4+=Very High EZEKIEL CHOUDHARY DO Apr 23, 2018 13:16
--- NOTE | 2018-04-23 14:13 | Cardiology Progress Note ---
Cardiology SOAP Progress Note Subjective: No significant shortness of breath. Objective: I&O/Vital Signs 04/23/18 04/23/18 04/23/18 05:27 07:42 08:34 Temp 99.2 Pulse 94 Resp 18 B/P (MAP) 110/71 (84) Pulse Ox 93 91 O2 Delivery Room Air Room Air Room Air 04/23/18 00:00 Intake Total 960 ml Balance 960 ml Weight (Pounds): 149 Weight (Ounces): 1.6 Weight (Calculated Kilograms): 67.317048 Constitutional: AAO x 3, well-developed, well-nourished Respiratory: No accessory muscle use, No respiratory distress, No chest tender , No chest expansion is symmetric; chest is bilaterally symmetric; No lungs clear to percussion; lungs clear to auscultation; No crackles, No rhonchi, No rales, No stridor, No wheezing, No pleural rub; other (prolonged expiratory phase ) Cardiovascular: regular rate-rhythm; No irregularly irregular, No extra beats, No parasternal heave is noted, No JVD, No edema, No bradycardia, No tachycardia , No point of maximal impulse, No cardiac thrills are palpable; S1 and S2; No gallop/S3, No gallop/S4, No diastolic murmur; systolic murmur; No friction rub, No click, No other Gastrointestional: No tender; soft, round; No distended, No pulsatile mass, No organomegaly, No guarding, No rebound, No tenderness, No hernia, No mass; audible bowel sounds; No abnormal bowel sounds, No abdominal bruits, No spleenomegaly, No other Extremities: No normal range of motion, No non-tender, No normal inspection, No pedal edema, No calf tenderness, No normal capillary refill, No pelvis stable , No calf tenderness, No inflammation, No pedal edema, No slow capillary refill ; swelling (mild bilat LE edema - improved); No other, No abrasion, No clubbing , No cyanosis, No ecchymosis, No laceration, No no lower extremity edema bilateral, No significant edema, No tenderness, No wound Neurologic/Psychiatric: no motor/sensory deficits, alert, normal mood/affect, oriented x 3, other (flat affect), grossly intact Results/Procedures: Labs Laboratory Tests 04/22/18 17:19: Glucometer 316H 04/22/18 22:39: Glucometer 152H 04/23/18 05:06: Glucometer 164H 04/23/18 09:50: Glucometer 202H A/P: Assessment/Dx: Assessment: Elevated BNP: due to renal failure and/or ac systolic and diastolic CHF Generalized weakness with frequent falls - management per medical services Hyponatremia of undetermined etiology - management per medical services CAD. Ac NSTEMI on 09/30/17 due to occlusion of SVG to RI, treated with PCI: Cath and cor intervention of 09/30/17: CAD consisting of severe proximal disease of the LAD, proximal occlusion of the RI, moderately severe long stenosis in the proximal portion of LCX, patent stents in prox and distal RCA (Taxus 3 mm stents ) and moderately severe stenosis in a small caliber PDA from RCA; Occlusion of the SVG to RI treated successfully with deployment of Mini Vision 2.0 x 12 mm stent at the site of insertion of the graft into the RI and placement of Alpine Xience 3.0 x 38 mm stent in the proximal and mid portions of the graft; Patent, albeit small caliber, HUFF to the LAD; Normal LVEDP; Diaphragmatic akinesis of the left ventricle; LVEF approx 50%. 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 CT of head and cervical spine on 10/01/17: Chronic changes. No acute intracranial process is detected. Cervical spondylosis. No acute bony abnormality is detected Noncompliance, intermittent Plan: Plan: Continue current cardiac regimen Continue oral Lasix Monitor lab closely Thank you for your consultation. Please call me if you have any questions. Abrahan Vigil MD, FACP, FACC, FSCAI, FHRS, CCDS Interventional Cardiology Cardiac Electrophysiology Vascular Medicine and Endovascular Interventions Marina VIGIL MD Apr 23, 2018 2:13 pm
[2018-04-23] MEDS ORDERED: PANTOPRAZOLE 40 MG (PROTONIX) TAB PO NR (16:00)
[2018-04-23] MEDS: SUCRALFATE 1 GM (CARAFATE) TAB PO SCH ×2 (16:27→20:09)
[2018-04-23 18:59] VITALS: BP 108/67
[2018-04-23] MEDS: CLOPIDOGREL 75 MG (PLAVIX) TABLET PO SCH (20:09)
[2018-04-23] MEDS: ATORVASTATIN 80 MG (LIPITOR) TABLET PO SCH (20:10)
[2018-04-23] MEDS: ASPIRIN E.C. 81 MG (ECOTRIN) TAB PO SCH (20:10)
[2018-04-24] MEDS: HYDROcodone/APAP 5 MG/325 MG (LORTAB) TAB PO PRN ×2 (03:51→20:49)
[2018-04-24 05:03] VITALS: BP 93/57
[2018-04-24] MEDS: inSUlin ASPART (NovoLOG) 1 UNIT/0.01 ML (CHARGE PER UNIT) SC SCH ×4 (05:15→20:47)
[2018-04-24] MEDS: PANTOPRAZOLE 40 MG (PROTONIX) TAB PO SCH (05:19)
[2018-04-24] MEDS: SUCRALFATE 1 GM (CARAFATE) TAB PO SCH ×4 (05:19→20:48)
[2018-04-24] MEDS: RT-ALBUTEROL/IPRATROPIUM 3 ML (DUONEB) VIAL INH SCH ×4 (07:15→19:03)
[2018-04-24 09:00] VITALS: BP 101/48
[2018-04-24] MEDS: lisINopril 5 MG (PRINIVIL) TABLET PO SCH (09:04)
[2018-04-24] MEDS: SENNA W/DOCUSATE (SENOKOT S) TABLET PO SCH ×2 (09:04→20:48)
[2018-04-24] MEDS: GABAPENTIN 300 MG (NEURONTIN) CAP PO SCH ×2 (09:04→20:48)
[2018-04-24] MEDS: FUROSEMIDE 40 MG (LASIX) TAB PO SCH (09:04)
--- NOTE | 2018-04-24 12:38 | Cardiology Progress Note ---
Cardiology SOAP Progress Note Subjective: Improved shortness of breath. Objective: I&O/Vital Signs 04/24/18 04/24/18 04/24/18 05:03 07:15 09:00 Temp 97.8 98.7 Pulse 95 95 Resp 20 20 B/P (MAP) 93/57 (69) 101/48 (65) Pulse Ox 95 92 O2 Delivery Room Air Room Air Room Air 04/24/18 00:00 Intake Total 930 ml Balance 930 ml Weight (Pounds): 147 Weight (Ounces): 1.6 Weight (Calculated Kilograms): 66.669019 Constitutional: AAO x 3, well-developed, well-nourished Respiratory: chest is bilaterally symmetric, lungs clear to auscultation, other Cardiovascular: regular rate-rhythm, S1 and S2, systolic murmur Gastrointestional: soft, round, audible bowel sounds Extremities: swelling Neurologic/Psychiatric: no motor/sensory deficits, alert, normal mood/affect, oriented x 3, other, grossly intact Results/Procedures: Labs Laboratory Tests 04/23/18 16:16: Glucometer 238H 04/23/18 21:30: Glucometer 181H 04/24/18 05:14: Glucometer 117H 04/24/18 09:49: Glucometer 246H A/P: Assessment/Dx: Assessment: Elevated BNP: due to renal failure and/or ac systolic and diastolic CHF Generalized weakness with frequent falls - management per medical services Hyponatremia of undetermined etiology - management per medical services CAD. Ac NSTEMI on 09/30/17 due to occlusion of SVG to RI, treated with PCI: Cath and cor intervention of 09/30/17: CAD consisting of severe proximal disease of the LAD, proximal occlusion of the RI, moderately severe long stenosis in the proximal portion of LCX, patent stents in prox and distal RCA (Taxus 3 mm stents ) and moderately severe stenosis in a small caliber PDA from RCA; Occlusion of the SVG to RI treated successfully with deployment of Mini Vision 2.0 x 12 mm stent at the site of insertion of the graft into the RI and placement of Alpine Xience 3.0 x 38 mm stent in the proximal and mid portions of the graft; Patent, albeit small caliber, HUFF to the LAD; Normal LVEDP; Diaphragmatic akinesis of the left ventricle; LVEF approx 50%. 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 CT of head and cervical spine on 10/01/17: Chronic changes. No acute intracranial process is detected. Cervical spondylosis. No acute bony abnormality is detected Noncompliance, intermittent Plan: Plan: Continue current cardiac regimen Continue oral Lasix Monitor lab closely Thank you for your consultation. Please call me if you have any questions. Abrahan Vigil MD, FACP, FACC, FSCAI, FHRS, CCDS Interventional Cardiology Cardiac Electrophysiology Vascular Medicine and Endovascular Interventions Marina VIGIL MD Apr 24, 2018 12:38
[2018-04-24 17:45] VITALS: BP 103/62
[2018-04-24] MEDS: ATORVASTATIN 80 MG (LIPITOR) TABLET PO SCH (20:47)
[2018-04-24] MEDS: ASPIRIN E.C. 81 MG (ECOTRIN) TAB PO SCH (20:48)
[2018-04-24] MEDS: CLOPIDOGREL 75 MG (PLAVIX) TABLET PO SCH (20:48)
[2018-04-25 04:51] LABS: HEMOGLOBIN 8.7 G/DL (11.5-16.0); MEAN PLATELET VOLUME 9.1 FL (7.4-10.4); RED BLOOD COUNT 2.99 10^6/uL (4.35-5.85); RED CELL DISTRIBUTION WIDTH 15.2 % (10.0-14.5)
[2018-04-25 05:08] LABS: CALCIUM 8.1 MG/DL (8.5-10.1); CREATININE SERUM 2.91 MG/DL (0.60-1.30); POTASSIUM 4.6 MMOL/L (3.6-5.0)
[2018-04-25] MEDS: SUCRALFATE 1 GM (CARAFATE) TAB PO SCH ×4 (05:27→20:10)
[2018-04-25] MEDS: PANTOPRAZOLE 40 MG (PROTONIX) TAB PO SCH (05:27)
[2018-04-25] MEDS: inSUlin ASPART (NovoLOG) 1 UNIT/0.01 ML (CHARGE PER UNIT) SC SCH ×4 (05:27→21:54)
[2018-04-25] MEDS: HYDROcodone/APAP 5 MG/325 MG (LORTAB) TAB PO PRN (05:28)
[2018-04-25 05:38] VITALS: BP 98/62
[2018-04-25] MEDS: RT-ALBUTEROL/IPRATROPIUM 3 ML (DUONEB) VIAL INH SCH ×4 (07:21→18:41)
[2018-04-25] MEDS: GABAPENTIN 300 MG (NEURONTIN) CAP PO SCH ×2 (08:07→20:10)
[2018-04-25] MEDS: FUROSEMIDE 40 MG (LASIX) TAB PO SCH (08:07)
[2018-04-25] MEDS: lisINopril 5 MG (PRINIVIL) TABLET PO SCH (08:07)
[2018-04-25] MEDS: SENNA W/DOCUSATE (SENOKOT S) TABLET PO SCH ×2 (08:08→21:56)
--- NOTE | 2018-04-25 08:17 | Occupational Ther Daily Note ---
OT Current Status-Daily Note Subjective Pt alert, eating breakfast on EOB. Pt stated that her legs felt weird. Pt agrees to therapy. Physician in room making rounds. Mental Status/Objective Patient Orientation: Person, Place, Time, Situation Functional [place] Measure 0=Not Assessed/NA 4=Minimal Assistance 1=Total Assistance 5=Supervision or Setup 2=Maximal Assistance 6=Modified [place] 3=Moderate Assistance 7=Complete [place] ADL-Treatment Supine to sitting EOB independent, bed flat and no bedrails. Mod I with eating , dentures. Pt ambulated to closet with FWW, then started complaining of LE's being weak and feeling like they would give out. Pt standing at closet retrieving clothing and knees began to buckle. Pt able to get to chair, very upset that she wasn't able to walk. Physician and nrsg came into room at this time and was able to discuss with pt. Pt encouraged to continue with therapy using w/c to maneuver. Pt agreed. Pt completed transfer to shower and back with CGA using grabbars and shower bench for safety. Supervision with bathing using grabbar, shower bench and hand held shower. After set up, pt able to complete upper body dressing. Supervision with lower body dressing for safety. Completed grooming sitting at sink, mod I. Functional [place] Measure 0=Not Assessed/NA 4=Minimal Assistance 1=Total Assistance 5=Supervision or Setup 2=Maximal Assistance 6=Modified [place] 3=Moderate Assistance 7=Complete IndependenceIRFPAI Quality Coding Scale 6 Independent with activity with or without an assistive device 5 Patient requires set up or clean up by helper. Patient completes activity by themselves 4 Supervision or touching assist (CGA). [place] provide cues , steadying assist 3 The helper provides less than half the effort to complete the activity 2 The helper provides more than half the effort to complete the activity 1 Dependent. The helper does all the effort to complete an activity 7 Patient refused to complete or attempt activity 9 The patient did not perform the activity before the current illness or injury 88 Not attempted due to Medical conditions or safety concerns Eating (FIM): 6 Eating (QC): 6 Grooming (FIM): 6 Oral Hygiene (QC): 6 Bathing (FIM): 5 Bathing Location: L Arm, R Arm, L Upper Leg, R Upper Leg, L Lower Leg ( including foot), R Lower Leg (including foot), Chest, Abdomen, Buttocks, Perineal Area Shower/Bathe Self (QC): 4 Upper Body (FIM): 5 Upper Body Dressing (QC): 5 Lower Body Dressing (FIM): 5 Lower Body Dressing (QC): 4 On/Off Footwear (QC): 6 Transfers (B, C, W/C) (FIM): 4 Shower Transfer(FIM): 4 Other Treatment Pt completed UE tasks to increase strength and activity tolerance for daily functional tasks. Fine motor tasks for pinch and biological science aide strength for daily functional tasks. After therapy, pt lying in bed with call light/phone in reach. All needs met in room. OT Short Term Goals Short Term Goals Time Frame: May 04, 2018 Eating(FIM): 5 Grooming(FIM): 5 Bathing(FIM): 4 Upper Body Dressing(FIM): 5 Lower Body Dressing(FIM): 4 Toileting(FIM): 4 Transfers (B,C,W/C) (FIM): 5 Toilet/Commode Transfer(FIM): 5 Shower Transfer(FIM): 4 Additional Short Term Goals: 1-Demonstrate ADL Tasks, 2-Verbalize Understanding , 3-ImproveStrength/Karen 1=Demonstrate adherence to instructed precautions during ADL tasks. 2=Patient will verbalize/demonstrate understanding of assistive devices/ modifications for ADL. 3=Patient will improve strength/tolerance for activity to enable patient to perform ADL's. OT Half-Way Goals Plug Machine Operator Goals Time Frame: May 11, 2018 Eating (FIM): 6 Eating (QC): 6 Groomin Oral Hygiene (QC): 6 Bathing(FIM): 5 Shower/Bathe Self (QC): 5 Upper Body Dressing(FIM): 6 Upper Body Dressing (QC): 6 Lower Body Dressing(FIM): 6 Lower Body Dressing (QC): 6 On/Off Footwear (QC): 6 Toileting(FIM): 6 Toileting Hygiene (QC): 6 Transfers (B,C,W/C) (FIM): 6 Toilet/Commode Transfer(FIM): 6 Toilet/Commode Transfer (QC): 6 Shower Transfer(FIM): 5 Additional Goals: 1-Demonstrate ADL Tasks, 2-Verbalize Understanding, 3- ImproveStrength/Karen 1=Demonstrate adherence to instructed precautions during ADL tasks. 2=Patient will verbalize/demonstrate understanding of assistive devices/ modifications for ADL. 3=Patient will improve strength/tolerance for activity to enable patient to perform ADL's. OT Education/Plan Discharge Recommendations Plan/Recommendations: Continue POC Treatment Plan/Plan of Care Patient would benefit from OT for education, treatment and training to promote independence in ADL's, mobility, safety and/or upper extremity function for ADL' s. Plan of Care: ADL Retraining, Functional Mobility, Group Exercise/Act as Ind, UE Funct Exercise/Act Treatment Duration: May 11, 2018 Frequency: At least 5 of 7 days/Wk (IRF) Estimated Hrs Per Day: 1.5 hours per day Agreement: Yes Rehab Potential: Guarded Time/GCodes Start Time: 08:00 Stop Time: 09:30 Total Time Billed (hr/min): 90 Billed Treatment Time 1 visit-ADL 5 (70 min) EX 1 (20 min) NIKKI ROGERS Apr 25, 2018 08:17
--- NOTE | 2018-04-25 08:34 | Progress Note (SOAP) ---
Subjective Time Seen by a Provider: 08:31 Subjective/Events-last exam Patient the last few days having knee pain and difficulty in getting around area To give hydrocodone on schedule Objective Exam Vital Signs Date Time Temp Pulse Resp B/P (MAP) Pulse Ox O2 Delivery O2 Flow Rate FiO2 04/25/18 07:21 96 Room Air 04/25/18 05:38 96.6 89 12 98/62 (74) 92 Room Air 04/24/18 20:25 Room Air 04/24/18 19:03 94 Room Air 04/24/18 17:45 98.5 91 16 103/62 (76) 94 Room Air 04/24/18 14:55 96 Room Air 04/24/18 09:00 Room Air 04/24/18 09:00 98.7 95 20 101/48 (65) Room Air I & O 04/25/18 07:00 Intake Total 1300 ml Balance 1300 ml Capillary Refill : General Appearance: No Apparent Distress, WD/WN HEENT: Normal ENT Inspection Neck: Full Range of Motion, Normal Inspection Respiratory: No Accessory Muscle Use, No Respiratory Distress, Decreased Breath Sounds Cardiovascular: Regular Rate, Rhythm Gastrointestinal: non tender, soft Results Lab Laboratory Tests 04/25/18 04:29 Laboratory Tests 04/24/18 09:49: Glucometer 246H 04/24/18 14:27: Glucometer 206H 04/24/18 19:19: Glucometer 262H 04/25/18 04:29: White Blood Count 8.0, Red Blood Count 2.99L, Hemoglobin 8.7L, Hematocrit 27L, Mean Corpuscular Volume 91, Mean Corpuscular Hemoglobin 29, Mean Corpuscular Hemoglobin Concent 32, Red Cell Distribution Width 15.2H, Platelet Count 244, Mean Platelet Volume 9.1, Sodium Level 133L, Potassium Level 4.6, Chloride Level 102, Carbon Dioxide Level 19L, Anion Gap 12, Blood Urea Nitrogen 33H, Creatinine 2.91#H, Estimat Glomerular Filtration Rate 16, BUN/Creatinine Ratio 11, Glucose Level 206H, Calcium Level 8.1L 04/25/18 05:20: Glucometer 197H Assessment/Plan Assessment/Plan Assess & Plan/Chief Complaint Myopathy. Unsteady gait. Congestive heart failure. Renal insufficiency. Diabetes. Coronary artery disease. Noncompliance history. Tobaccoism. . /. Myopathy. Unsteady gait. Congestive heart failure better. Renal insufficiency stable. Diabetes. Coronary artery disease. Noncompliance history. Tobaccoism. . 04/25/18. Myopathy. Unsteady gait. Renal insufficiency worse. Diabetes. Coronary artery disease. Tobaccoism. Noncompliance history. Patient having pain in the knees Clinical Quality Measures DVT/VTE Risk/Contraindication: Risk Factor Score Per Nursin RFS Level Per Nursing on Admit: 4+=Very High MERRICK SIEGEL DO Apr 25, 2018 08:33
[2018-04-25] MEDS: IBUPROFEN TABLET 200 MG TAB PO PRN ×2 (11:01→23:56)
--- NOTE | 2018-04-25 11:58 | Physical Therapy Daily Note ---
PT Daily Note-Current Subjective Pt. stats she is happy to report that she feels a little better , has been taking a med that is successful in helping alleviate her nausea and has a decent appetite. Pt. c/o during stance and gait phase of rx just as she had last week while being treated by this NURSERY SCHOOL ATTENDANT that her knees and legs arent working right for her and she feels she might fall. Pt. states she had many falls at home but not this "jerking and giving way' Pain Numeric Pain Scale: 0-No Pain Mental Status Patient Orientation: Normal For Age Transfers Functional [place] Measure 0=Not Assessed/NA 4=Minimal Assistance 1=Total Assistance 5=Supervision or Setup 2=Maximal Assistance 6=Modified [place] 3=Moderate Assistance 7=Complete IndependenceIRFPAI Quality Coding Scale 6 Independent with activity with or without an assistive device 5 Patient requires set up or clean up by helper. Patient completes activity by themselves 4 Supervision or touching assist (CGA). [place] provide cues , steadying assist 3 The helper provides less than half the effort to complete the activity 2 The helper provides more than half the effort to complete the activity 1 Dependent. The helper does all the effort to complete an activity 7 Patient refused to complete or attempt activity 9 The patient did not perform the activity before the current illness or injury 88 Not attempted due to Medical conditions or safety concerns Transfers (B, C, W/C) (FIM): 4 Scootin Rollin Supine to/from Sit: 5 Sit to/from Stand: 4 sit to stand with jerking and instability at knees and hips , pt. nearly giving way to floor numerous times. Weight Bearing Right Lower Extremity: Right Weight Bearing/Tolerated Left Lower Extremity: Left Weight Bearing/Tolerated Gait Training Does the Patient Walk?: Yes Gait (FIM): 1 Distance (FIM): 1=up to 49 ft (8ftx5) Gait Level of Assist: 4 Gait Persons Needed: 1 Gait Assistive Device: FWW w/c to follow, pt. requesting to sit and stating "there they go again". gait unstable , unsafe , poor coordination of movement Wheelchair Training Does the Pt Use a Wheelchair?: Yes Wheelchair (FIM): 5 Wheelchair Distance: 3=150 ft (x3) Wheelchair Level of Assist: 5 Type of Wheelchair: Manual some difficulty braking but much safer and more functional in w/c farrah during this period of poor coordination and gait dysfunction Exercises Supine Ex: Bridging, Ankle pumps, Quad Set, Rolling, Glut sets, Heel Slides, Short Arc Quads, Scooting, Straight leg raise, Hip abd/add Supine Reps: 15 Seated Therapy Exercises: Ankle pumps, Sit to stand, Long arc quads, Hip flexion Seated Reps: 10 NuStep Minutes: 10 NuStep Workload: 2 Neuromuscular pts. muscle fasciculations and moderate to severe coordination possibly pointing to nuero issues. Alexandra DPT assessed pt. during rx and states he will forward to Physician etc. Treatments side lying clam shells and hip abduction Assessment Current Status: Fair Progress gait unstable, see above issues, w/ and SPTs appear safe mobility at this point PT Short Term Goals Short Term Goals Time Frame: Apr 27, 2018 Transfers (B,C,W/C) (FIM): 5 Gait (FIM): 1 Gait Distance Comment: 30' Gait Level of Assist: 4 Gait Assistive Device: FWW PT Care Home Goals Stripper And Taper Goals PT Care Home Goals Time Frame: May 11, 2018 Transfers (B,C,W/C) (FIM): 6 Sit to Lying (QC): 6 Lying-Sitting on Side/Bed(QC): 6 Sit to Stand (QC): 6 Rollin Roll Left to Right (QC): 6 Chair/Slw-kv-Oxnck Xfer(QC): 6 Car Transfer (QC): 6 Gait (FIM): 2 Distance: 50' Walk 10 feet (QC): 4 Walk 10ft-Uneven Surface(QC): 4 Walk 50ft with 2 Turns (QC): 4 Gait Level of Assist: 5 Gait Assistive Device: FWW Stairs (FIM): 2 # of Steps: 4 1 Step (curb) (QC): 4 4 Steps (QC): 4 Stairs Level Of Assist: 4 PT Plan Treatment/Plan Treatment Plan: Continue Plan of Care Treatment Plan: Bed Mobility, Concurrent Therapy, Education, Functional Activity Karen, Functional Strength, Group Therapy, Gait, Safety, Therapeutic Exercise, Transfers Treatment Duration: May 11, 2018 Frequency: At least 5 of 7 days/Wk (IRF) Estimated Hrs Per Day: 1.5 hours per day Patient and/or Family Agrees t: Yes Safety Risks/Education Patient Education: Gait Training, Transfer Techniques, Correct Positioning, W/ C Management, Disease Process, Safety Issues Teaching Recipient: Patient Teaching Methods: Demonstration, Discussion Response to Teaching: Verbalize Understanding, Return Demonstration, Reinforcement Needed Time/GCodes Time In: 1100 Time Out: 1200 Total Billed Treatment Time: 60 Total Billed Treatment 1,EX25m,FA15m,WC20m G Codes Necessary: ISAIAH Rosenthal [employer]UR[employer] SCHO[employer] ATTENDANT Apr 25, 2018 11:58
[2018-04-25] MEDS: HYDROcodone/APAP 5 MG/325 MG (LORTAB) TAB PO SCH ×2 (12:43→20:11)
--- NOTE | 2018-04-25 14:02 | Physical Therapy Daily Note ---
PT Daily Note-Current Subjective Pt. agrees to Rx. States she really wants a cup of chocolate pudding and to have her bra on. Nurse approved pudding and it was ordered. Pain Numeric Pain Scale: 0-No Pain Comment: pt. continues c/o of unstable legs when on feet Transfers Functional [place] Measure 0=Not Assessed/NA 4=Minimal Assistance 1=Total Assistance 5=Supervision or Setup 2=Maximal Assistance 6=Modified [place] 3=Moderate Assistance 7=Complete IndependenceIRFPAI Quality Coding Scale 6 Independent with activity with or without an assistive device 5 Patient requires set up or clean up by helper. Patient completes activity by themselves 4 Supervision or touching assist (CGA). [place] provide cues , steadying assist 3 The helper provides less than half the effort to complete the activity 2 The helper provides more than half the effort to complete the activity 1 Dependent. The helper does all the effort to complete an activity 7 Patient refused to complete or attempt activity 9 The patient did not perform the activity before the current illness or injury 88 Not attempted due to Medical conditions or safety concerns all SPTs bed to w/c and back CGA to SBA x 4 trials Weight Bearing Right Lower Extremity: Right Weight Bearing/Tolerated Left Lower Extremity: Left Weight Bearing/Tolerated Gait Training Gait Assistive Device: FWW 5 ft x 2, unstable and needed mod assist to get back to w/c Wheelchair Training Does the Pt Use a Wheelchair?: Yes Type of Wheelchair: Manual 75ftx2 good management of w/c Exercises Seated Therapy Exercises: Ankle pumps, Sit to stand, Long arc quads, Hip flexion, Hip abd/add Seated Reps: 10 Treatments Pt. donned bra sitting EOB indep. Doffed t shirt, donned bra no issues, in bed after Rx for pudding, call fierro at hand Assessment Current Status: Fair Progress PT Short Term Goals Short Term Goals Time Frame: Apr 27, 2018 Transfers (B,C,W/C) (FIM): 5 Gait (FIM): 1 Gait Distance Comment: 30' Gait Level of Assist: 4 Gait Assistive Device: FWW PT Wwe Wrestler Goals Jail Goals PT Wwe Wrestler Goals Time Frame: May 11, 2018 Transfers (B,C,W/C) (FIM): 6 Sit to Lying (QC): 6 Lying-Sitting on Side/Bed(QC): 6 Sit to Stand (QC): 6 Rollin Roll Left to Right (QC): 6 Chair/Lek-va-Begml Xfer(QC): 6 Car Transfer (QC): 6 Gait (FIM): 2 Distance: 50' Walk 10 feet (QC): 4 Walk 10ft-Uneven Surface(QC): 4 Walk 50ft with 2 Turns (QC): 4 Gait Level of Assist: 5 Gait Assistive Device: FWW Stairs (FIM): 2 # of Steps: 4 1 Step (curb) (QC): 4 4 Steps (QC): 4 Stairs Level Of Assist: 4 PT Plan Treatment/Plan Treatment Plan: Continue Plan of Care Treatment Plan: Bed Mobility, Concurrent Therapy, Education, Functional Activity Karen, Functional Strength, Group Therapy, Gait, Safety, Therapeutic Exercise, Transfers Treatment Duration: May 11, 2018 Frequency: At least 5 of 7 days/Wk (IRF) Estimated Hrs Per Day: 1.5 hours per day Patient and/or Family Agrees t: Yes Safety Risks/Education Patient Education: Gait Training, Transfer Techniques, Correct Positioning, W/ C Management, Safety Issues Teaching Recipient: Patient Teaching Methods: Demonstration, Discussion Response to Teaching: Verbalize Understanding, Return Demonstration, Reinforcement Needed Time/GCodes Time In: 1330 Time Out: 1400 Total Billed Treatment Time: 30 Total Billed Treatment 1,FA30m G Codes Necessary: ISAIAH Rosenthal OFFICE AGENT Apr 25, 2018 14:02
--- NOTE | 2018-04-25 14:27 | Diagnostic Imaging Report ---
INDICATION: Pleural effusion. EXAMINATION: PA and lateral chest. 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 There are bilateral pleural effusions, larger on the right than on the left. IMPRESSION: Bilateral pleural effusions. These are not significantly changed from 04/22/2018. The previously seen infiltrate in the left lung base has improved. Dictated by: Dictated on workstation # [id number]
[2018-04-25 19:00] VITALS: BP 100/64
[2018-04-25] MEDS: ASPIRIN E.C. 81 MG (ECOTRIN) TAB PO SCH (20:11)
[2018-04-25] MEDS: CLOPIDOGREL 75 MG (PLAVIX) TABLET PO SCH (20:11)
[2018-04-25] MEDS: ATORVASTATIN 80 MG (LIPITOR) TABLET PO SCH (20:11)
[2018-04-26] MEDS: inSUlin ASPART (NovoLOG) 1 UNIT/0.01 ML (CHARGE PER UNIT) SC SCH ×4 (05:57→20:49)
[2018-04-26 06:03] VITALS: BP 95/59
[2018-04-26] MEDS: SUCRALFATE 1 GM (CARAFATE) TAB PO SCH ×4 (06:26→20:14)
[2018-04-26] MEDS: PANTOPRAZOLE 40 MG (PROTONIX) TAB PO SCH (06:26)
[2018-04-26] MEDS: RT-ALBUTEROL/IPRATROPIUM 3 ML (DUONEB) VIAL INH SCH ×2 (06:59→20:07)
[2018-04-26 08:09] VITALS: BP 118/62
[2018-04-26] MEDS: lisINopril 5 MG (PRINIVIL) TABLET PO SCH (08:13)
[2018-04-26] MEDS: GABAPENTIN 300 MG (NEURONTIN) CAP PO SCH ×2 (08:14→20:14)
[2018-04-26] MEDS: FUROSEMIDE 40 MG (LASIX) TAB PO SCH (08:14)
[2018-04-26] MEDS: HYDROcodone/APAP 5 MG/325 MG (LORTAB) TAB PO SCH ×3 (08:14→20:15)
[2018-04-26] MEDS: SENNA W/DOCUSATE (SENOKOT S) TABLET PO SCH ×2 (08:14→20:15)
--- NOTE | 2018-04-26 08:17 | Progress Note (SOAP) ---
Subjective Time Seen by a Provider: 08:14 Subjective/Events-last exam Patient feels down today. Patient states she's not getting better and sooner she wants. Patient told to be positive and not negative Objective Exam Vital Signs Date Time Temp Pulse Resp B/P (MAP) Pulse Ox O2 Delivery O2 Flow Rate FiO2 04/26/18 06:59 94 Room Air 04/26/18 06:03 97.6 89 19 95/59 (71) 93 Room Air 04/25/18 20:20 Room Air 04/25/18 19:00 97.3 81 16 100/64 (76) 97 Room Air 04/25/18 18:41 93 Room Air 04/25/18 14:55 92 Room Air 04/25/18 10:34 93 Room Air 04/25/18 09:00 Room Air I & O 04/26/18 06:59 Intake Total 1260 ml Output Total 1350 ml Balance -90 ml Capillary Refill : General Appearance: No Apparent Distress, WD/WN HEENT: Normal ENT Inspection Neck: Full Range of Motion, Normal Inspection Respiratory: No Accessory Muscle Use, No Respiratory Distress, Decreased Breath Sounds Cardiovascular: Regular Rate, Rhythm, No Murmur Gastrointestinal: non tender, soft Results Lab Laboratory Tests 04/25/18 11:00: Glucometer 252H 04/25/18 14:16: Glucometer 186H 04/25/18 21:48: Glucometer 296H 04/26/18 05:55: Glucometer 141H Assessment/Plan Assessment/Plan Assess & Plan/Chief Complaint Myopathy. Unsteady gait. Congestive heart failure. Renal insufficiency. Diabetes. Coronary artery disease. Noncompliance history. Tobaccoism. . . Myopathy. Unsteady gait. Congestive heart failure better. Renal insufficiency stable. Diabetes. Coronary artery disease. Noncompliance history. Tobaccoism. . 04/25/18. Myopathy. Unsteady gait. Renal insufficiency worse. Diabetes. Coronary artery disease. Tobaccoism. Noncompliance history. Patient having pain in the knees. . 04/26/18. Unsteady gait. Myopathy. Renal insufficiency. Diabetes. Coronary artery disease. Tobaccoism. Patient feels down today Clinical Quality Measures DVT/VTE Risk/Contraindication: Risk Factor Score Per Nursin RFS Level Per Nursing on Admit: 4+=Very High MERRICK SIEGEL DO Apr 26, 2018 08:17
[2018-04-26] MEDS: IBUPROFEN TABLET 200 MG TAB PO PRN ×2 (09:10→15:26)
--- NOTE | 2018-04-26 10:00 | Physical Therapy Daily Note ---
PT Daily Note-Current Subjective Patient in wheelchair pre tx, agrees to PT, has unrated pain in low back and knees. Appearance Patient in bed post tx with nurse call, phone, tray, all needs met. Mental Status Patient Orientation: Normal For Age Transfers Functional [place] Measure 0=Not Assessed/NA 4=Minimal Assistance 1=Total Assistance 5=Supervision or Setup 2=Maximal Assistance 6=Modified [place] 3=Moderate Assistance 7=Complete IndependenceIRFPAI Quality Coding Scale 6 Independent with activity with or without an assistive device 5 Patient requires set up or clean up by helper. Patient completes activity by themselves 4 Supervision or touching assist (CGA). [place] provide cues , steadying assist 3 The helper provides less than half the effort to complete the activity 2 The helper provides more than half the effort to complete the activity 1 Dependent. The helper does all the effort to complete an activity 7 Patient refused to complete or attempt activity 9 The patient did not perform the activity before the current illness or injury 88 Not attempted due to Medical conditions or safety concerns Transfers (B, C, W/C) (FIM): 5 Scootin Rollin Supine to/from Sit: 6 Sit to/from Stand: 5 Bed to/from Chair: 5 Patient was able to transfer with SBA, occasional cues for hand placement and positioning. Patient did not demonstrate unsteadiness in legs with transfers. Weight Bearing Right Lower Extremity: Right Weight Bearing/Tolerated Left Lower Extremity: Left Weight Bearing/Tolerated Wheelchair Training Wheelchair (FIM): 6 Distance: 150'x2 Type of Wheelchair: Manual Exercises Supine Ex: Bridging, Ankle pumps, Quad Set, Glut sets, Heel Slides, Straight leg raise, Hip abd/add Supine Reps: 15 LAQ alternating for 5 min NuStep Minutes: 15 NuStep Workload: 4 Treatments bed mobility and transfers, wheelchair mobility, functional strengthening Assessment Current Status: Poor Progress No ambulation today. Patient tried to interface engineer parallel bars to perform exercises but her legs became shaky and seemed to have abnormal muscle contractions. She did not display this during transfers however. PT Short Term Goals Short Term Goals Time Frame: Apr 27, 2018 Transfers (B,C,W/C) (FIM): 5 Gait (FIM): 1 Gait Distance Comment: 30' Gait Level of Assist: 4 Gait Assistive Device: FWW PT Senior Care Goals Senior Care Goals PT Senior Care Goals Time Frame: May 11, 2018 Transfers (B,C,W/C) (FIM): 6 Sit to Lying (QC): 6 Lying-Sitting on Side/Bed(QC): 6 Sit to Stand (QC): 6 Rollin Roll Left to Right (QC): 6 Chair/Cyf-gf-Eldbw Xfer(QC): 6 Car Transfer (QC): 6 Gait (FIM): 2 Distance: 50' Walk 10 feet (QC): 4 Walk 10ft-Uneven Surface(QC): 4 Walk 50ft with 2 Turns (QC): 4 Gait Level of Assist: 5 Gait Assistive Device: FWW Stairs (FIM): 2 # of Steps: 4 1 Step (curb) (QC): 4 4 Steps (QC): 4 Stairs Level Of Assist: 4 PT Plan Problem List Problem List: Activity Tolerance, Functional Strength, Safety, Balance, Gait, Transfer, Bed Mobility, ROM Treatment/Plan Treatment Plan: Continue Plan of Care Treatment Plan: Bed Mobility, Concurrent Therapy, Education, Functional Activity Karen, Functional Strength, Group Therapy, Gait, Safety, Therapeutic Exercise, Transfers Treatment Duration: May 11, 2018 Frequency: At least 5 of 7 days/Wk (IRF) Estimated Hrs Per Day: 1.5 hours per day Patient and/or Family Agrees t: Yes Safety Risks/Education Patient Education: Transfer Techniques, Correct Positioning, W/C Management, Safety Issues Teaching Recipient: Patient Teaching Methods: Demonstration, Discussion Response to Teaching: Reinforcement Needed Time/GCodes Time In: 0900 Time Out: 1000 Total Billed Treatment Time: 60 Total Billed Treatment 1 visit [facility] 15' EX 45' DONTE CHAO PT Apr 26, 2018 10:00
--- NOTE | 2018-04-26 12:44 | Occupational Ther Daily Note ---
OT Current Status-Daily Note Subjective Pt sleeping in bed, woke easily to name. Agrees to therapy. C/o legs not feeling right, physician in room. Mental Status/Objective Patient Orientation: Person, Place, Time, Situation Functional [place] Measure 0=Not Assessed/NA 4=Minimal Assistance 1=Total Assistance 5=Supervision or Setup 2=Maximal Assistance 6=Modified [place] 3=Moderate Assistance 7=Complete [place] ADL-Treatment Pt declined shower/sponge bath today. SPT from surface to surface, knees buckling, with close SBA. Functional [place] Measure 0=Not Assessed/NA 4=Minimal Assistance 1=Total Assistance 5=Supervision or Setup 2=Maximal Assistance 6=Modified [place] 3=Moderate Assistance 7=Complete IndependenceIRFPAI Quality Coding Scale 6 Independent with activity with or without an assistive device 5 Patient requires set up or clean up by helper. Patient completes activity by themselves 4 Supervision or touching assist (CGA). [place] provide cues , steadying assist 3 The helper provides less than half the effort to complete the activity 2 The helper provides more than half the effort to complete the activity 1 Dependent. The helper does all the effort to complete an activity 7 Patient refused to complete or attempt activity 9 The patient did not perform the activity before the current illness or injury 88 Not attempted due to Medical conditions or safety concerns Grooming (FIM): 6 (Sitting at sink.) Oral Hygiene (QC): 6 Upper Body (FIM): 5 (After set up, pt able to complete by self.) Upper Body Dressing (QC): 5 Lower Body Dressing (FIM): 5 (After set up, pt dons/doff clothing by self. SBA in standing to hike pants over hips.) Lower Body Dressing (QC): 4 On/Off Footwear (QC): 6 (Completes by self.) Transfers (B, C, W/C) (FIM): 5 Other Treatment Pt maneuvered w/c to therapy gym. Arm bike completed to increase strength and activity tolerance, 15 min at 20 bailey resistance with 3 recovery breaks. Pt maneuvered w/c back to room. After therapy, pt sitting in w/c with call light/ phone in reach. All needs met in room. OT Short Term Goals Short Term Goals Time Frame: May 04, 2018 Eating(FIM): 5 Grooming(FIM): 5 Bathing(FIM): 4 Upper Body Dressing(FIM): 5 Lower Body Dressing(FIM): 4 Toileting(FIM): 4 Transfers (B,C,W/C) (FIM): 5 Toilet/Commode Transfer(FIM): 5 Shower Transfer(FIM): 4 Additional Short Term Goals: 1-Demonstrate ADL Tasks, 2-Verbalize Understanding , 3-ImproveStrength/Karen 1=Demonstrate adherence to instructed precautions during ADL tasks. 2=Patient will verbalize/demonstrate understanding of assistive devices/ modifications for ADL. 3=Patient will improve strength/tolerance for activity to enable patient to perform ADL's. OT Building Mover Goals Prison Goals Time Frame: May 11, 2018 Eating (FIM): 6 Eating (QC): 6 Groomin Oral Hygiene (QC): 6 Bathing(FIM): 5 Shower/Bathe Self (QC): 5 Upper Body Dressing(FIM): 6 Upper Body Dressing (QC): 6 Lower Body Dressing(FIM): 6 Lower Body Dressing (QC): 6 On/Off Footwear (QC): 6 Toileting(FIM): 6 Toileting Hygiene (QC): 6 Transfers (B,C,W/C) (FIM): 6 Toilet/Commode Transfer(FIM): 6 Toilet/Commode Transfer (QC): 6 Shower Transfer(FIM): 5 Additional Goals: 1-Demonstrate ADL Tasks, 2-Verbalize Understanding, 3- ImproveStrength/Karen 1=Demonstrate adherence to instructed precautions during ADL tasks. 2=Patient will verbalize/demonstrate understanding of assistive devices/ modifications for ADL. 3=Patient will improve strength/tolerance for activity to enable patient to perform ADL's. OT Education/Plan Discharge Recommendations Plan/Recommendations: Continue POC Treatment Plan/Plan of Care Patient would benefit from OT for education, treatment and training to promote independence in ADL's, mobility, safety and/or upper extremity function for ADL' s. Plan of Care: ADL Retraining, Functional Mobility, Group Exercise/Act as Ind, UE Funct Exercise/Act Treatment Duration: May 11, 2018 Frequency: At least 5 of 7 days/Wk (IRF) Estimated Hrs Per Day: 1.5 hours per day Agreement: Yes Rehab Potential: Guarded Time/GCodes Start Time: 08:00 Stop Time: 09:00 Total Time Billed (hr/min): 60 Billed Treatment Time 1 visit-ADL 3 (40 min) EX 1 (20 min) NIKKI ROGERS Apr 26, 2018 12:44
--- NOTE | 2018-04-26 14:13 | Occupational Ther Daily Note ---
OT Current Status-Daily Note Subjective Pt alert, lying in bed. Pt agrees to therapy. No c/o pain at this time. Mental Status/Objective Functional [place] Measure 0=Not Assessed/NA 4=Minimal Assistance 1=Total Assistance 5=Supervision or Setup 2=Maximal Assistance 6=Modified [place] 3=Moderate Assistance 7=Complete [place] ADL-Treatment Functional [place] Measure 0=Not Assessed/NA 4=Minimal Assistance 1=Total Assistance 5=Supervision or Setup 2=Maximal Assistance 6=Modified [place] 3=Moderate Assistance 7=Complete IndependenceIRFPAI Quality Coding Scale 6 Independent with activity with or without an assistive device 5 Patient requires set up or clean up by helper. Patient completes activity by themselves 4 Supervision or touching assist (CGA). [place] provide cues , steadying assist 3 The helper provides less than half the effort to complete the activity 2 The helper provides more than half the effort to complete the activity 1 Dependent. The helper does all the effort to complete an activity 7 Patient refused to complete or attempt activity 9 The patient did not perform the activity before the current illness or injury 88 Not attempted due to Medical conditions or safety concerns Toileting (FIM): 5 (Supervision using w/c and grabbars.) Toileting Hygiene (QC): 4 Toilet/Commode Transfer (FIM): 5 (Supervision using w/c and grabbars.) Pt feels like knees will buckle while she ambulates, chooses to use w/c. Other Treatment Pt maneuvers w/c to therapy gym. Nut and bolt activity completed to increase strength for UE's, pinch and stone finisher for daily functional tasks. Pt tolerated well , increased time due to slow movements. After therapy, pt sitting in w/c with call light/phone in reach. All needs met in room. OT Short Term Goals Short Term Goals Time Frame: May 04, 2018 Eating(FIM): 5 Grooming(FIM): 5 Bathing(FIM): 4 Upper Body Dressing(FIM): 5 Lower Body Dressing(FIM): 4 Toileting(FIM): 4 Transfers (B,C,W/C) (FIM): 5 Toilet/Commode Transfer(FIM): 5 Shower Transfer(FIM): 4 Additional Short Term Goals: 1-Demonstrate ADL Tasks, 2-Verbalize Understanding , 3-ImproveStrength/Karen 1=Demonstrate adherence to instructed precautions during ADL tasks. 2=Patient will verbalize/demonstrate understanding of assistive devices/ modifications for ADL. 3=Patient will improve strength/tolerance for activity to enable patient to perform ADL's. OT Fpc Goals Mounter Goals Time Frame: May 11, 2018 Eating (FIM): 6 Eating (QC): 6 Groomin Oral Hygiene (QC): 6 Bathing(FIM): 5 Shower/Bathe Self (QC): 5 Upper Body Dressing(FIM): 6 Upper Body Dressing (QC): 6 Lower Body Dressing(FIM): 6 Lower Body Dressing (QC): 6 On/Off Footwear (QC): 6 Toileting(FIM): 6 Toileting Hygiene (QC): 6 Transfers (B,C,W/C) (FIM): 6 Toilet/Commode Transfer(FIM): 6 Toilet/Commode Transfer (QC): 6 Shower Transfer(FIM): 5 Additional Goals: 1-Demonstrate ADL Tasks, 2-Verbalize Understanding, 3- ImproveStrength/Karen 1=Demonstrate adherence to instructed precautions during ADL tasks. 2=Patient will verbalize/demonstrate understanding of assistive devices/ modifications for ADL. 3=Patient will improve strength/tolerance for activity to enable patient to perform ADL's. OT Education/Plan Discharge Recommendations Plan/Recommendations: Continue POC Treatment Plan/Plan of Care Patient would benefit from OT for education, treatment and training to promote independence in ADL's, mobility, safety and/or upper extremity function for ADL' s. Plan of Care: ADL Retraining, Functional Mobility, Group Exercise/Act as Ind, UE Funct Exercise/Act Treatment Duration: May 11, 2018 Frequency: At least 5 of 7 days/Wk (IRF) Estimated Hrs Per Day: 1.5 hours per day Agreement: Yes Rehab Potential: Guarded Time/GCodes Start Time: 12:55 Stop Time: 13:25 Total Time Billed (hr/min): 30 Billed Treatment Time 1 visit-ADL 1 (20 min) EX 1 (10 min) NIKKI ROGERS Apr 26, 2018 14:13
--- NOTE | 2018-04-26 14:22 | PM & R (SOAP) Progress Note ---
Subjective This was a face to face visit with the patient. Date Seen by Provider: Apr 26, 2018 Time Seen by Provider: 08:10 Subjective/Events-last exam Patient was seen in her room this AM patient SBA for transfers Objective Physician Exam Last Set of Vital Signs Vital Signs Date Time Temp Pulse Resp B/P (MAP) Pulse Ox O2 Delivery O2 Flow Rate FiO2 04/26/18 08:57 Room Air 04/26/18 08:09 99 118/62 (80) 04/26/18 06:59 94 04/26/18 06:03 97.6 19 Capillary Refill : I&O Intake and Output 04/26/18 00:00 Intake Total 1210 ml Balance 1210 ml Intake Oral 1210 ml # Voids 6 # Bowel Movements 1 General: Alert, Oriented X3, Cooperative, No Acute Distress HEENT: Atraumatic, PERRLA, EOMI, Mucous Memb Moist/[place] Neck: Supple, No JVD Lungs: Other (decreased breath sounds) Heart: Regular Rate Abdomen: Normal Bowel Sounds, Soft, No Tenderness Extremities: No Edema Neuro: Other ( hip flex 3/5 knee flex 4-/5 knee ext 4-/5 dorsiflex 4/5) Psych/Mental Status: Mental Status NL Results Lab Data Laboratory Tests 04/23/18 16:16: Glucometer 238H 04/23/18 21:30: Glucometer 181H 04/24/18 05:14: Glucometer 117H 04/24/18 09:49: Glucometer 246H 04/24/18 14:27: Glucometer 206H 04/24/18 19:19: Glucometer 262H 04/25/18 04:29: White Blood Count 8.0, Red Blood Count 2.99L, Hemoglobin 8.7L, Hematocrit 27L, Mean Corpuscular Volume 91, Mean Corpuscular Hemoglobin 29, Mean Corpuscular Hemoglobin Concent 32, Red Cell Distribution Width 15.2H, Platelet Count 244, Mean Platelet Volume 9.1, Sodium Level 133L, Potassium Level 4.6, Chloride Level 102, Carbon Dioxide Level 19L, Anion Gap 12, Blood Urea Nitrogen 33H, Creatinine 2.91#H, Estimat Glomerular Filtration Rate 16, BUN/Creatinine Ratio 11, Glucose Level 206H, Calcium Level 8.1L 04/25/18 05:20: Glucometer 197H 04/25/18 11:00: Glucometer 252H 04/25/18 14:16: Glucometer 186H 04/25/18 21:48: Glucometer 296H 04/26/18 05:55: Glucometer 141H 04/26/18 10:56: Glucometer 271H Assessment/Plan Assessment and Plan 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
--- NOTE | 2018-04-26 14:36 | Physical Therapy Daily Note ---
PT Daily Note-Current Subjective Patient in wheelchair pre tx, agrees to PT, no complaints of pain. Appearance Patient in bed post tx with nurse call, phone, tray, all needs met. Mental Status Patient Orientation: Normal For Age Transfers Functional [place] Measure 0=Not Assessed/NA 4=Minimal Assistance 1=Total Assistance 5=Supervision or Setup 2=Maximal Assistance 6=Modified [place] 3=Moderate Assistance 7=Complete IndependenceIRFPAI Quality Coding Scale 6 Independent with activity with or without an assistive device 5 Patient requires set up or clean up by helper. Patient completes activity by themselves 4 Supervision or touching assist (CGA). [place] provide cues , steadying assist 3 The helper provides less than half the effort to complete the activity 2 The helper provides more than half the effort to complete the activity 1 Dependent. The helper does all the effort to complete an activity 7 Patient refused to complete or attempt activity 9 The patient did not perform the activity before the current illness or injury 88 Not attempted due to Medical conditions or safety concerns Transfers (B, C, W/C) (FIM): 5 Scootin Rollin Supine to/from Sit: 6 Sit to/from Stand: 5 Bed to/from Chair: 5 Patient is good to stand for a short time to perform a stand pivot transfer but if she stands for any longer than that she has knee buckling and abnormal movement, almost like a dyskinesia. Weight Bearing Right Lower Extremity: Right Weight Bearing/Tolerated Left Lower Extremity: Left Weight Bearing/Tolerated Gait Training Attempted ambulation but she was not able to take steps due to her dyskinesia- like symptoms. Wheelchair Training Does the Pt Use a Wheelchair?: Yes Wheelchair (FIM): 6 Distance: 150'x2 Type of Wheelchair: Manual Exercises NuStep Minutes: 15 NuStep Workload: 5 Treatments bed mobility and transfers, wheelchair mobility, functional strengthening Assessment Current Status: Poor Progress no ambulation today, patient is having symptoms during standing that at dyskinesia-like PT Short Term Goals Short Term Goals Time Frame: Apr 27, 2018 Transfers (B,C,W/C) (FIM): 5 Gait (FIM): 1 Gait Distance Comment: 30' Gait Level of Assist: 4 Gait Assistive Device: FWW Wheelchair Distance: 150'x2 PT Tank Truck Operator 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 Tank Truck Operator Goals PT Care Home Goals Time Frame: May 11, 2018 Transfers (B,C,W/C) (FIM): 6 Sit to Lying (QC): 6 Lying-Sitting on Side/Bed(QC): 6 Sit to Stand (QC): 6 Rollin Roll Left to Right (QC): 6 Chair/Gon-qm-Yokkj Xfer(QC): 6 Car Transfer (QC): 6 Gait (FIM): 2 Distance: 50' Walk 10 feet (QC): 4 Walk 10ft-Uneven Surface(QC): 4 Walk 50ft with 2 Turns (QC): 4 Gait Level of Assist: 5 Gait Assistive Device: FWW Stairs (FIM): 2 # of Steps: 4 1 Step (curb) (QC): 4 4 Steps (QC): 4 Stairs Level Of Assist: 4 PT Plan Problem List Problem List: Activity Tolerance, Functional Strength, Safety, Balance, Gait, Transfer Treatment/Plan Treatment Plan: Continue Plan of Care Treatment Plan: Bed Mobility, Concurrent Therapy, Education, Functional Activity Karen, Functional Strength, Group Therapy, Gait, Safety, Therapeutic Exercise, Transfers Treatment Duration: May 11, 2018 Frequency: At least 5 of 7 days/Wk (IRF) Estimated Hrs Per Day: 1.5 hours per day Patient and/or Family Agrees t: Yes Safety Risks/Education Patient Education: Transfer Techniques, Correct Positioning, W/C Management, Safety Issues Teaching Recipient: Patient Teaching Methods: Demonstration, Discussion Response to Teaching: Reinforcement Needed Time/GCodes Time In: 1330 Time Out: 1400 Total Billed Treatment Time: 30 Total Billed Treatment [address] [facility] 15' DONTE CHAO PT Apr 26, 2018 14:36
[2018-04-26 16:13] VITALS: BP 128/78
[2018-04-26] MEDS: CLOPIDOGREL 75 MG (PLAVIX) TABLET PO SCH (20:15)
[2018-04-26] MEDS: ATORVASTATIN 80 MG (LIPITOR) TABLET PO SCH (20:15)
[2018-04-26] MEDS: ASPIRIN E.C. 81 MG (ECOTRIN) TAB PO SCH (20:15)
[2018-04-27] MEDS: inSUlin ASPART (NovoLOG) 1 UNIT/0.01 ML (CHARGE PER UNIT) SC SCH ×4 (05:53→20:27)
[2018-04-27 06:06] LABS: HEMOGLOBIN 8.8 G/DL (11.5-16.0); MEAN PLATELET VOLUME 9.2 FL (7.4-10.4); RED CELL DISTRIBUTION WIDTH 15.1 % (10.0-14.5); WHITE BLOOD COUNT 8.4 10^3/uL (4.3-11.0)
[2018-04-27 06:15] VITALS: BP 109/62
[2018-04-27] MEDS: SUCRALFATE 1 GM (CARAFATE) TAB PO SCH ×4 (06:18→20:24)
[2018-04-27] MEDS: PANTOPRAZOLE 40 MG (PROTONIX) TAB PO SCH (06:18)
[2018-04-27 06:20] LABS: CALCIUM 8.3 MG/DL (8.5-10.1); CREATININE SERUM 2.84 MG/DL (0.60-1.30); POTASSIUM 4.9 MMOL/L (3.6-5.0)
[2018-04-27] MEDS: RT-ALBUTEROL/IPRATROPIUM 3 ML (DUONEB) VIAL INH SCH ×2 (07:09→19:28)
[2018-04-27] MEDS: lisINopril 5 MG (PRINIVIL) TABLET PO SCH (08:09)
[2018-04-27] MEDS: SENNA W/DOCUSATE (SENOKOT S) TABLET PO SCH ×2 (08:09→20:24)
[2018-04-27] MEDS: FUROSEMIDE 40 MG (LASIX) TAB PO SCH (08:09)
[2018-04-27] MEDS: HYDROcodone/APAP 5 MG/325 MG (LORTAB) TAB PO SCH ×3 (08:09→20:24)
[2018-04-27] MEDS: GABAPENTIN 300 MG (NEURONTIN) CAP PO SCH ×2 (08:09→20:24)
--- NOTE | 2018-04-27 08:19 | Progress Note (SOAP) ---
Subjective Time Seen by a Provider: 08:17 Subjective/Events-last exam Patient having leg pain. Patient has diabetic neuropathy. Objective Exam Vital Signs Date Time Temp Pulse Resp B/P (MAP) Pulse Ox O2 Delivery O2 Flow Rate FiO2 04/27/18 07:10 Room Air 04/27/18 06:15 97.9 95 18 109/62 (78) 95 Room Air 04/26/18 21:49 Room Air 04/26/18 20:08 95 Room Air 04/26/18 16:13 96.9 72 14 128/78 (95) 98 Room Air 04/26/18 08:57 Room Air I & O 04/27/18 07:00 Intake Total 1120 ml Output Total 2100 ml Balance -980 ml Capillary Refill : General Appearance: No Apparent Distress, Thin HEENT: Normal ENT Inspection Neck: Full Range of Motion, Normal Inspection Respiratory: Chest Non Tender, No Accessory Muscle Use, No Respiratory Distress Cardiovascular: Regular Rate, Rhythm, No Murmur Results Lab Laboratory Tests 04/27/18 05:58 Laboratory Tests 04/26/18 10:56: Glucometer 271H 04/26/18 17:00: Glucometer 183H 04/26/18 21:47: Glucometer 181H 04/27/18 05:17: Glucometer 165H 04/27/18 05:58: White Blood Count 8.4, Red Blood Count 3.00L, Hemoglobin 8.8L, Hematocrit 27L, Mean Corpuscular Volume 91, Mean Corpuscular Hemoglobin 29, Mean Corpuscular Hemoglobin Concent 32, Red Cell Distribution Width 15.1H, Platelet Count 272, Mean Platelet Volume 9.2, Sodium Level 133L, Potassium Level 4.9, Chloride Level 100, Carbon Dioxide Level 20L, Anion Gap 13, Blood Urea Nitrogen 42H, Creatinine 2.84H, Estimat Glomerular Filtration Rate 16, BUN/Creatinine Ratio 15 , Glucose Level 161H, Calcium Level 8.3L Assessment/Plan Assessment/Plan Assess & Plan/Chief Complaint Myopathy. Unsteady gait. Congestive heart failure. Renal insufficiency. Diabetes. Coronary artery disease. Noncompliance history. Tobaccoism. . . Myopathy. Unsteady gait. Congestive heart failure better. Renal insufficiency stable. Diabetes. Coronary artery disease. Noncompliance history. Tobaccoism. . 04/25/18. Myopathy. Unsteady gait. Renal insufficiency worse. Diabetes. Coronary artery disease. Tobaccoism. Noncompliance history. Patient having pain in the knees. . 04/26/18. Unsteady gait. Myopathy. Renal insufficiency. Diabetes. Coronary artery disease. Tobaccoism. Patient feels down today. . 04/27/18. Myopathy. Unsteady gait. Lactic pain. Renal insufficiency. Diabetes. Coronary artery disease. Tobaccoism. Patient having back pain today Clinical Quality Measures DVT/VTE Risk/Contraindication: Risk Factor Score Per Nursin RFS Level Per Nursing on Admit: 4+=Very High MERRICK SIEGEL DO Apr 27, 2018 08:19
--- NOTE | 2018-04-27 08:49 | PM & R (SOAP) Progress Note ---
Subjective This was a face to face visit with the patient. Date Seen by Provider: Apr 27, 2018 Time Seen by Provider: 08:05 Subjective/Events-last exam Patient was seen in her room Patient SBA for transfers Current labs reviewed Objective Physician Exam Last Set of Vital Signs Vital Signs Date Time Temp Pulse Resp B/P (MAP) Pulse Ox O2 Delivery O2 Flow Rate FiO2 04/27/18 07:10 Room Air 04/27/18 06:15 97.9 95 18 109/62 (78) 95 Capillary Refill : I&O Intake and Output 04/27/18 00:00 Intake Total 1420 ml Output Total 2650 ml Balance -1230 ml Intake Oral 1420 ml Output Urine Total 2650 ml # Voids 3 General: Alert, Oriented X3, Cooperative, No Acute Distress HEENT: Atraumatic, PERRLA, EOMI, Mucous Memb Moist/[place] Neck: Supple, No JVD Lungs: Other (decreased breath sounds) Heart: Regular Rate Abdomen: Normal Bowel Sounds, Soft, No Tenderness Extremities: No Edema Neuro: Other ( hip flex 3/5 knee flex 4-/5 knee ext 4-/5 dorsiflex 4/5) Psych/Mental Status: Mental Status NL Results Lab Data Laboratory Tests 04/24/18 09:49: Glucometer 246H 04/24/18 14:27: Glucometer 206H 04/24/18 19:19: Glucometer 262H 04/25/18 04:29: White Blood Count 8.0, Red Blood Count 2.99L, Hemoglobin 8.7L, Hematocrit 27L, Mean Corpuscular Volume 91, Mean Corpuscular Hemoglobin 29, Mean Corpuscular Hemoglobin Concent 32, Red Cell Distribution Width 15.2H, Platelet Count 244, Mean Platelet Volume 9.1, Sodium Level 133L, Potassium Level 4.6, Chloride Level 102, Carbon Dioxide Level 19L, Anion Gap 12, Blood Urea Nitrogen 33H, Creatinine 2.91#H, Estimat Glomerular Filtration Rate 16, BUN/Creatinine Ratio 11, Glucose Level 206H, Calcium Level 8.1L 04/25/18 05:20: Glucometer 197H 04/25/18 11:00: Glucometer 252H 04/25/18 14:16: Glucometer 186H 04/25/18 21:48: Glucometer 296H 04/26/18 05:55: Glucometer 141H 04/26/18 10:56: Glucometer 271H 04/26/18 17:00: Glucometer 183H 04/26/18 21:47: Glucometer 181H 04/27/18 05:17: Glucometer 165H 04/27/18 05:58: White Blood Count 8.4, Red Blood Count 3.00L, Hemoglobin 8.8L, Hematocrit 27L, Mean Corpuscular Volume 91, Mean Corpuscular Hemoglobin 29, Mean Corpuscular Hemoglobin Concent 32, Red Cell Distribution Width 15.1H, Platelet Count 272, Mean Platelet Volume 9.2, Sodium Level 133L, Potassium Level 4.9, Chloride Level 100, Carbon Dioxide Level 20L, Anion Gap 13, Blood Urea Nitrogen 42H, Creatinine 2.84H, Estimat Glomerular Filtration Rate 16, BUN/Creatinine Ratio 15 , Glucose Level 161H, Calcium Level 8.3L Assessment/Plan Assessment and Plan 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
--- NOTE | 2018-04-27 10:14 | Occupational Ther Daily Note ---
OT Current Status-Daily Note Subjective Attempted to see pt earlier this morning, pt declined stating that her legs were weak and wobbly and her feet hurt. Stating she wasn't going to do anything until she felt better. Rescheduled pt for 1000. Pt then agrees to therapy. Pt states she is feeling better though LE's are still weak. Mental Status/Objective Patient Orientation: Person, Place, Time, Situation Functional [place] Measure 0=Not Assessed/NA 4=Minimal Assistance 1=Total Assistance 5=Supervision or Setup 2=Maximal Assistance 6=Modified [place] 3=Moderate Assistance 7=Complete [place] ADL-Treatment Pt's knees buckle in standing though pt does catch self. Pt demonstrated jerky movements in UE and LE when extending out and holding against gravity. Declined shower. Completed sponge bath sitting on EOB with bathing clothes. Functional [place] Measure 0=Not Assessed/NA 4=Minimal Assistance 1=Total Assistance 5=Supervision or Setup 2=Maximal Assistance 6=Modified [place] 3=Moderate Assistance 7=Complete IndependenceIRFPAI Quality Coding Scale 6 Independent with activity with or without an assistive device 5 Patient requires set up or clean up by helper. Patient completes activity by themselves 4 Supervision or touching assist (CGA). [place] provide cues , steadying assist 3 The helper provides less than half the effort to complete the activity 2 The helper provides more than half the effort to complete the activity 1 Dependent. The helper does all the effort to complete an activity 7 Patient refused to complete or attempt activity 9 The patient did not perform the activity before the current illness or injury 88 Not attempted due to Medical conditions or safety concerns Grooming (FIM): 6 (At w/c level, pt able to complete by self.) Oral Hygiene (QC): 6 Upper Body (FIM): 5 (Completes by self after set up.) Upper Body Dressing (QC): 5 Lower Body Dressing (FIM): 5 (After set up, pt completes with supervision.) Lower Body Dressing (QC): 4 On/Off Footwear (QC): 6 Other Treatment Pt able to maneuver w/c throughout hospital with frequent recovery breaks to increase activity tolerance and UE strengthening. Arm bike completed with multiple recovery breaks, resistance 20 bailey time set for 15 min, actual time 25 min. After therapy, pt lying in bed with call light/phone in reach. All needs met in room. OT Short Term Goals Short Term Goals Time Frame: May 04, 2018 Eating(FIM): 5 Grooming(FIM): 5 Bathing(FIM): 4 Upper Body Dressing(FIM): 5 Lower Body Dressing(FIM): 4 Toileting(FIM): 4 Transfers (B,C,W/C) (FIM): 5 Toilet/Commode Transfer(FIM): 5 Shower Transfer(FIM): 4 Additional Short Term Goals: 1-Demonstrate ADL Tasks, 2-Verbalize Understanding , 3-ImproveStrength/Karen 1=Demonstrate adherence to instructed precautions during ADL tasks. 2=Patient will verbalize/demonstrate understanding of assistive devices/ modifications for ADL. 3=Patient will improve strength/tolerance for activity to enable patient to perform ADL's. OT Sorter/Assay Tech Goals [place] Goals Time Frame: May 11, 2018 Eating (FIM): 6 Eating (QC): 6 Groomin Oral Hygiene (QC): 6 Bathing(FIM): 5 Shower/Bathe Self (QC): 5 Upper Body Dressing(FIM): 6 Upper Body Dressing (QC): 6 Lower Body Dressing(FIM): 6 Lower Body Dressing (QC): 6 On/Off Footwear (QC): 6 Toileting(FIM): 6 Toileting Hygiene (QC): 6 Transfers (B,C,W/C) (FIM): 6 Toilet/Commode Transfer(FIM): 6 Toilet/Commode Transfer (QC): 6 Shower Transfer(FIM): 5 Additional Goals: 1-Demonstrate ADL Tasks, 2-Verbalize Understanding, 3- ImproveStrength/Karen 1=Demonstrate adherence to instructed precautions during ADL tasks. 2=Patient will verbalize/demonstrate understanding of assistive devices/ modifications for ADL. 3=Patient will improve strength/tolerance for activity to enable patient to perform ADL's. OT Education/Plan Discharge Recommendations Plan/Recommendations: Continue POC Treatment Plan/Plan of Care Patient would benefit from OT for education, treatment and training to promote independence in ADL's, mobility, safety and/or upper extremity function for ADL' s. Plan of Care: ADL Retraining, Functional Mobility, Group Exercise/Act as Ind, UE Funct Exercise/Act Treatment Duration: May 11, 2018 Frequency: At least 5 of 7 days/Wk (IRF) Estimated Hrs Per Day: 1.5 hours per day Agreement: Yes Rehab Potential: Guarded Time/GCodes Start Time: 10:00 Stop Time: 11:30 Total Time Billed (hr/min): 90 Billed Treatment Time 1 visit-ADL 4 (60 min) EX 2 (30 min) NIKKI ROGERS Apr 27, 2018 10:14
--- NOTE | 2018-04-27 12:00 | Physical Therapy Daily Note ---
PT Daily Note-Current Subjective Pt sitting up in bed upon arrival. Pt agrees to PT but reports wanting to discharge S[facility]. "I will be fine at home. I can do it." Pain Numeric Pain Scale: 8 Location Body Site: Head Pain Description: Ache Mental Status Patient Orientation: Person, Place, Time, Situation Transfers Functional [place] Measure 0=Not Assessed/NA 4=Minimal Assistance 1=Total Assistance 5=Supervision or Setup 2=Maximal Assistance 6=Modified [place] 3=Moderate Assistance 7=Complete IndependenceIRFPAI Quality Coding Scale 6 Independent with activity with or without an assistive device 5 Patient requires set up or clean up by helper. Patient completes activity by themselves 4 Supervision or touching assist (CGA). [place] provide cues , steadying assist 3 The helper provides less than half the effort to complete the activity 2 The helper provides more than half the effort to complete the activity 1 Dependent. The helper does all the effort to complete an activity 7 Patient refused to complete or attempt activity 9 The patient did not perform the activity before the current illness or injury 88 Not attempted due to Medical conditions or safety concerns Scootin Supine to/from Sit: 5 Sit to/from Stand: 5 Sit to Lying (QC): 5 Sit to Stand (QC): 5 Weight Bearing Right Lower Extremity: Right Weight Bearing/Tolerated Left Lower Extremity: Left Weight Bearing/Tolerated Gait Training Does the Patient Walk?: Yes Distance (FIM): 1=up to 49 ft Distance: 35' Walk 10 feet (QC): 5 Gait Level of Assist: 5 Gait Persons Needed: 1 Gait Assistive Device: FWW Pt has very slow isael, flexed knees (occasionally buckling). Treatments Pt reports headache and pain in B feet and radiating up the front side of legs, stopping at half way between ankle & knee. Pt had been given pain med but had not helped yet. Pt attempted Supine Ex but pt discontinued due to increasing pain. GRAIN MANAGER & pt discuss Weekly meeting and what what she needs to discharge. Pt wants to discharge SIRIA and advises has AE & AD at home except needing Grab bars for bathroom for transfers. Pt transfers from bed to standing, uses restroom then returns to bed. GRAIN MANAGER advises Test Developer of what pt reported. Pt repositions in bed at end of tx with all needs met. Assessment Current Status: Fair Progress Pt is limited by pain and has occasional knee buckling during ambulation. Pt wants to discharge SIRIA. PT Short Term Goals Short Term Goals Time Frame: Apr 27, 2018 Transfers (B,C,W/C) (FIM): 5 Gait (FIM): 1 Gait Distance Comment: 30' Gait Level of Assist: 4 Gait Assistive Device: FWW Wheelchair Distance: 150'x2 PT Fdc Goals Business Development Professional Goals PT Fdc Goals Time Frame: May 11, 2018 Transfers (B,C,W/C) (FIM): 6 Sit to Lying (QC): 6 Lying-Sitting on Side/Bed(QC): 6 Sit to Stand (QC): 6 Rollin Roll Left to Right (QC): 6 Chair/Mjk-pp-Cbrjv Xfer(QC): 6 Car Transfer (QC): 6 Gait (FIM): 2 Distance: 50' Walk 10 feet (QC): 4 Walk 10ft-Uneven Surface(QC): 4 Walk 50ft with 2 Turns (QC): 4 Gait Level of Assist: 5 Gait Assistive Device: FWW Stairs (FIM): 2 # of Steps: 4 1 Step (curb) (QC): 4 4 Steps (QC): 4 Stairs Level Of Assist: 4 PT Plan Problem List Problem List: Activity Tolerance, Functional Strength, Safety, Balance, Gait Treatment/Plan Treatment Plan: Continue Plan of Care Treatment Plan: Bed Mobility, Concurrent Therapy, Education, Functional Activity Karen, Functional Strength, Group Therapy, Gait, Safety, Therapeutic Exercise, Transfers Treatment Duration: May 11, 2018 Frequency: At least 5 of 7 days/Wk (IRF) Estimated Hrs Per Day: 1.5 hours per day Patient and/or Family Agrees t: Yes Safety Risks/Education Patient Education: Gait Training, Transfer Techniques, Correct Positioning, Safety Issues Teaching Recipient: Patient Teaching Methods: Discussion Response to Teaching: Verbalize Understanding Time/GCodes Time In: 900 Time Out: 1000 Total Billed Treatment Time: 60 Total Billed Treatment 1, FA x4 (60m) G Codes Necessary: SANDY Hitchcock GRAIN MANAGER Apr 27, 2018 11:59
--- NOTE | 2018-04-27 13:23 | Cardiology Progress Note ---
Cardiology SOAP Progress Note Subjective: No cardiac complaints. Complaining of joint pains though. Objective: I&O/Vital Signs 04/27/18 04/27/18 06:15 07:10 Temp 97.9 Pulse 95 Resp 18 B/P (MAP) 109/62 (78) Pulse Ox 95 O2 Delivery Room Air Room Air 04/27/18 00:00 Intake Total 1020 ml Output Total 1300 ml Balance -280 ml Weight (Pounds): 146 Weight (Ounces): 1.6 Weight (Calculated Kilograms): 66.012589 Constitutional: AAO x 3, well-developed, well-nourished Respiratory: chest is bilaterally symmetric, lungs clear to auscultation, other Cardiovascular: regular rate-rhythm, S1 and S2, systolic murmur Gastrointestional: soft, round, audible bowel sounds Extremities: swelling Neurologic/Psychiatric: no motor/sensory deficits, alert, normal mood/affect, oriented x 3, other, grossly intact Results/Procedures: Labs Laboratory Tests 04/26/18 17:00: Glucometer 183H 04/26/18 21:47: Glucometer 181H 04/27/18 05:17: Glucometer 165H 04/27/18 05:58: White Blood Count 8.4, Red Blood Count 3.00L, Hemoglobin 8.8L, Hematocrit 27L, Mean Corpuscular Volume 91, Mean Corpuscular Hemoglobin 29, Mean Corpuscular Hemoglobin Concent 32, Red Cell Distribution Width 15.1H, Platelet Count 272, Mean Platelet Volume 9.2, Sodium Level 133L, Potassium Level 4.9, Chloride Level 100, Carbon Dioxide Level 20L, Anion Gap 13, Blood Urea Nitrogen 42H, Creatinine 2.84H, Estimat Glomerular Filtration Rate 16, BUN/Creatinine Ratio 15 , Glucose Level 161H, Calcium Level 8.3L 04/27/18 11:20: Glucometer 291H A/P: Assessment/Dx: Assessment: Elevated BNP: due to renal failure and/or ac systolic and diastolic CHF Generalized weakness with frequent falls - management per medical services Hyponatremia of undetermined etiology - management per medical services CAD. Ac NSTEMI on 09/30/17 due to occlusion of SVG to RI, treated with PCI: Cath and cor intervention of 09/30/17: CAD consisting of severe proximal disease of the LAD, proximal occlusion of the RI, moderately severe long stenosis in the proximal portion of LCX, patent stents in prox and distal RCA (Taxus 3 mm stents ) and moderately severe stenosis in a small caliber PDA from RCA; Occlusion of the SVG to RI treated successfully with deployment of Mini Vision 2.0 x 12 mm stent at the site of insertion of the graft into the RI and placement of Alpine Xience 3.0 x 38 mm stent in the proximal and mid portions of the graft; Patent, albeit small caliber, HUFF to the LAD; Normal LVEDP; Diaphragmatic akinesis of the left ventricle; LVEF approx 50%. 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 CT of head and cervical spine on 10/01/17: Chronic changes. No acute intracranial process is detected. Cervical spondylosis. No acute bony abnormality is detected Noncompliance, intermittent Plan: Plan: Continue current cardiac regimen Continue oral Lasix Monitor lab closely Thank you for your consultation. Please call me if you have any questions. Abrahan Vigil MD, FACP, FACC, FSCAI, FHRS, CCDS Interventional Cardiology Cardiac Electrophysiology Vascular Medicine and Endovascular Interventions Marina VIGIL MD Apr 27, 2018 1:23 pm
--- NOTE | 2018-04-27 15:57 | Physical Therapy Daily Note ---
PT Daily Note-Current Subjective Pt asleep laying R sidelying upon arrival. Pt agrees to PT. Pain Numeric Pain Scale: 7 Location Body Site: Head Pain Description: Ache Mental Status Patient Orientation: Person, Place, Situation Transfers Functional [place] Measure 0=Not Assessed/NA 4=Minimal Assistance 1=Total Assistance 5=Supervision or Setup 2=Maximal Assistance 6=Modified [place] 3=Moderate Assistance 7=Complete IndependenceIRFPAI Quality Coding Scale 6 Independent with activity with or without an assistive device 5 Patient requires set up or clean up by helper. Patient completes activity by themselves 4 Supervision or touching assist (CGA). [place] provide cues , steadying assist 3 The helper provides less than half the effort to complete the activity 2 The helper provides more than half the effort to complete the activity 1 Dependent. The helper does all the effort to complete an activity 7 Patient refused to complete or attempt activity 9 The patient did not perform the activity before the current illness or injury 88 Not attempted due to Medical conditions or safety concerns Weight Bearing Right Lower Extremity: Right Weight Bearing/Tolerated Left Lower Extremity: Left Weight Bearing/Tolerated Exercises Supine Ex: Ankle pumps, Quad Set, Glut sets, Heel Slides, Hip abd/add Supine Reps: 15 Treatments Pt completes Supine Ex but falls asleep during a couple of times. Pt has all needs met and falls asleep quickly after Ex is complete. Assessment Current Status: Good Progress Pt fatigues and needs occasional rest breaks to recover. PT Short Term Goals Short Term Goals Time Frame: Apr 27, 2018 Transfers (B,C,W/C) (FIM): 5 Gait (FIM): 1 Gait Distance Comment: 30' Gait Level of Assist: 4 Gait Assistive Device: FWW Wheelchair Distance: 150'x2 PT Assisted Goals Assembler Skylights Goals PT Assembler Skylights Goals Time Frame: May 11, 2018 Transfers (B,C,W/C) (FIM): 6 Sit to Lying (QC): 6 Lying-Sitting on Side/Bed(QC): 6 Sit to Stand (QC): 6 Rollin Roll Left to Right (QC): 6 Chair/Vhl-lg-Dtnzu Xfer(QC): 6 Car Transfer (QC): 6 Gait (FIM): 2 Distance: 50' Walk 10 feet (QC): 4 Walk 10ft-Uneven Surface(QC): 4 Walk 50ft with 2 Turns (QC): 4 Gait Level of Assist: 5 Gait Assistive Device: FWW Stairs (FIM): 2 # of Steps: 4 1 Step (curb) (QC): 4 4 Steps (QC): 4 Stairs Level Of Assist: 4 PT Plan Problem List Problem List: Activity Tolerance, Functional Strength, Safety, Balance, Gait Treatment/Plan Treatment Plan: Continue Plan of Care Treatment Plan: Bed Mobility, Concurrent Therapy, Education, Functional Activity Karen, Functional Strength, Group Therapy, Gait, Safety, Therapeutic Exercise, Transfers Treatment Duration: May 11, 2018 Frequency: At least 5 of 7 days/Wk (IRF) Estimated Hrs Per Day: 1.5 hours per day Patient and/or Family Agrees t: Yes Safety Risks/Education Patient Education: Transfer Techniques, Correct Positioning, Safety Issues Teaching Recipient: Patient Teaching Methods: Discussion Response to Teaching: Verbalize Understanding Time/GCodes Time In: 1500 Time Out: 1530 Total Billed Treatment Time: 30 Total Billed Treatment 1, EX x2 (30m) G Codes Necessary: SANDY Hitchcock STUDENT LIAISON OFFICER Apr 27, 2018 15:57
[2018-04-27 18:48] VITALS: BP 137/77
[2018-04-27] MEDS: ATORVASTATIN 80 MG (LIPITOR) TABLET PO SCH (20:24)
[2018-04-27] MEDS: ASPIRIN E.C. 81 MG (ECOTRIN) TAB PO SCH (20:24)
[2018-04-27] MEDS: CLOPIDOGREL 75 MG (PLAVIX) TABLET PO SCH (20:24)
[2018-04-28 05:52] VITALS: BP 105/63
[2018-04-28] MEDS: SUCRALFATE 1 GM (CARAFATE) TAB PO SCH ×4 (06:04→20:54)
[2018-04-28] MEDS: PANTOPRAZOLE 40 MG (PROTONIX) TAB PO SCH (06:04)
[2018-04-28] MEDS: inSUlin ASPART (NovoLOG) 1 UNIT/0.01 ML (CHARGE PER UNIT) SC SCH ×4 (06:05→20:06)
[2018-04-28] MEDS: RT-ALBUTEROL/IPRATROPIUM 3 ML (DUONEB) VIAL INH SCH ×2 (06:50→20:06)
--- NOTE | 2018-04-28 08:05 | PM & R (SOAP) Progress Note ---
Subjective This was a face to face visit with the patient. Date Seen by Provider: Apr 28, 2018 Time Seen by Provider: 07:50 Subjective/Events-last exam Patient was seen in his room this AM. Patient SBA for transfers Objective Physician Exam Last Set of Vital Signs Vital Signs Date Time Temp Pulse Resp B/P (MAP) Pulse Ox O2 Delivery O2 Flow Rate FiO2 04/28/18 06:50 91 Room Air 04/28/18 05:52 99.2 88 18 105/63 (77) Capillary Refill : I&O Intake and Output 04/28/18 00:00 Intake Total 1060 ml Output Total 1040 ml Balance 20 ml Intake Oral 1060 ml Output Urine Total 1040 ml # Voids 3 # Bowel Movements 2 General: Alert, Oriented X3, Cooperative, No Acute Distress HEENT: Atraumatic, PERRLA, EOMI, Mucous Memb Moist/[place] Neck: Supple, No JVD Lungs: Other (decreased breath sounds) Heart: Regular Rate Abdomen: Normal Bowel Sounds, Soft, No Tenderness Extremities: No Edema Neuro: Other ( hip flex 3/5 knee flex 4-/5 knee ext 4-/5 dorsiflex 4/5) Psych/Mental Status: Mental Status NL Results Lab Data Laboratory Tests 04/25/18 11:00: Glucometer 252H 04/25/18 14:16: Glucometer 186H 04/25/18 21:48: Glucometer 296H 04/26/18 05:55: Glucometer 141H 04/26/18 10:56: Glucometer 271H 04/26/18 17:00: Glucometer 183H 04/26/18 21:47: Glucometer 181H 04/27/18 05:17: Glucometer 165H 04/27/18 05:58: White Blood Count 8.4, Red Blood Count 3.00L, Hemoglobin 8.8L, Hematocrit 27L, Mean Corpuscular Volume 91, Mean Corpuscular Hemoglobin 29, Mean Corpuscular Hemoglobin Concent 32, Red Cell Distribution Width 15.1H, Platelet Count 272, Mean Platelet Volume 9.2, Sodium Level 133L, Potassium Level 4.9, Chloride Level 100, Carbon Dioxide Level 20L, Anion Gap 13, Blood Urea Nitrogen 42H, Creatinine 2.84H, Estimat Glomerular Filtration Rate 16, BUN/Creatinine Ratio 15 , Glucose Level 161H, Calcium Level 8.3L 04/27/18 11:20: Glucometer 291H 04/27/18 17:10: Glucometer 248H 04/27/18 19:53: Glucometer 256H 04/28/18 04:47: Glucometer 122H Assessment/Plan Assessment and Plan CHF myopathy with prox lower limb weakness improving HX of falls COPD Nausea/constipation improved Anemia Plan Continue PT/OT Team Conference held yesterday Discharge set for next Wednesday05-03-18 to home with family Co-Morbidities that are continuing to impact the rehab process: (include details ) TAWNY GALEANO MD Apr 28, 2018 08:05
[2018-04-28] MEDS: lisINopril 5 MG (PRINIVIL) TABLET PO SCH (08:19)
[2018-04-28] MEDS: GABAPENTIN 300 MG (NEURONTIN) CAP PO SCH ×2 (08:20→20:55)
[2018-04-28] MEDS: SENNA W/DOCUSATE (SENOKOT S) TABLET PO SCH ×2 (08:20→20:55)
[2018-04-28] MEDS: FUROSEMIDE 40 MG (LASIX) TAB PO SCH (08:20)
--- NOTE | 2018-04-28 08:31 | Progress Note (SOAP) ---
Subjective Time Seen by a Provider: 08:28 Subjective/Events-last exam Patient lying in bed. Patient complaining of leg pain. Objective Exam Vital Signs Date Time Temp Pulse Resp B/P (MAP) Pulse Ox O2 Delivery O2 Flow Rate FiO2 04/28/18 06:50 91 Room Air 04/28/18 05:52 99.2 88 18 105/63 (77) 96 Room Air 04/27/18 20:30 Room Air 04/27/18 19:29 91 Room Air 04/27/18 18:48 99.6 93 18 137/77 (97) 96 Room Air I & O 04/28/18 07:00 Intake Total 1560 ml Output Total 240 ml Balance 1320 ml Capillary Refill : General Appearance: No Apparent Distress, Thin HEENT: Normal ENT Inspection Neck: Full Range of Motion Respiratory: No Accessory Muscle Use, No Respiratory Distress Cardiovascular: Regular Rate, Rhythm Gastrointestinal: non tender, soft Results Lab Laboratory Tests 04/27/18 11:20: Glucometer 291H 04/27/18 17:10: Glucometer 248H 04/27/18 19:53: Glucometer 256H 04/28/18 04:47: Glucometer 122H Assessment/Plan Assessment/Plan Assess & Plan/Chief Complaint Myopathy. Unsteady gait. Congestive heart failure. Renal insufficiency. Diabetes. Coronary artery disease. Noncompliance history. Tobaccoism. . . Myopathy. Unsteady gait. Congestive heart failure better. Renal insufficiency stable. Diabetes. Coronary artery disease. Noncompliance history. Tobaccoism. . 04/25/18. Myopathy. Unsteady gait. Renal insufficiency worse. Diabetes. Coronary artery disease. Tobaccoism. Noncompliance history. Patient having pain in the knees. . 04/26/18. Unsteady gait. Myopathy. Renal insufficiency. Diabetes. Coronary artery disease. Tobaccoism. Patient feels down today. . 04/27/18. Myopathy. Unsteady gait. Lactic pain. Renal insufficiency. Diabetes. Coronary artery disease. Tobaccoism. Patient having back pain today. . 04/28/18. Unsteady gait. Renal insufficiency. Knee pain. Coronary artery disease. Tobaccoism. Patient in bed this morning lethargic Clinical Quality Measures DVT/VTE Risk/Contraindication: Risk Factor Score Per Nursin RFS Level Per Nursing on Admit: 4+=Very High MERRICK SIEGEL DO Apr 28, 2018 08:31
[2018-04-28] MEDS: HYDROcodone/APAP 5 MG/325 MG (LORTAB) TAB PO SCH ×2 (09:13→09:37)
--- NOTE | 2018-04-28 11:05 | Physical Therapy Daily Note ---
PT Daily Note-Current Subjective Pt sitting in [facility] in Therapy Gym upon arrival. Pt agrees to PT. Pain Numeric Pain Scale: 8 Location: Lower Pain Description: Ache Comment: Pt rating pain and appearance do not agree. Mental Status Patient Orientation: Person, Place, Situation Transfers Functional [place] Measure 0=Not Assessed/NA 4=Minimal Assistance 1=Total Assistance 5=Supervision or Setup 2=Maximal Assistance 6=Modified [place] 3=Moderate Assistance 7=Complete IndependenceIRFPAI Quality Coding Scale 6 Independent with activity with or without an assistive device 5 Patient requires set up or clean up by helper. Patient completes activity by themselves 4 Supervision or touching assist (CGA). [place] provide cues , steadying assist 3 The helper provides less than half the effort to complete the activity 2 The helper provides more than half the effort to complete the activity 1 Dependent. The helper does all the effort to complete an activity 7 Patient refused to complete or attempt activity 9 The patient did not perform the activity before the current illness or injury 88 Not attempted due to Medical conditions or safety concerns Scootin Rollin Supine to/from Sit: 5 Sit to/from Stand: 4 Sit to Lying (QC): 5 Sit to Stand (QC): 4 Weight Bearing Right Lower Extremity: Right Weight Bearing/Tolerated Left Lower Extremity: Left Weight Bearing/Tolerated Exercises Seated Therapy Exercises: Ankle pumps, Long arc quads, Hip flexion, Kicking activity NuStep Minutes: 10 NuStep Workload: 4 Treatments Pt transfers from [facility] to [facility] using SPT at CGA-Min A to assist blocking knees due to occasional buckling. Pt uses for 10m at 4 followed by transferring back to [facility]. Pt takes short rest break followed by Seated Ex in [facility]. Pt takes short rest then propels [facility] in hallway eventually heading back to room. Pt tranfers from [facility] to [facility] using SPT at SBA. Pt able to repoistion self in bed to avoid laying on tailbone. Lab draws blood at end of tx. Pt resting with all needs met at end of tx. Assessment Current Status: Fair Progress Pt shows lack motivation and tries to find ways to return to room during tx. Pt reports wanting to discharge [facility] and wants to know when that will happen. Pt is asked to sit up in chair at return to room but pt refuses citing need to lay and sleep. PT Short Term Goals Short Term Goals Time Frame: Apr 27, 2018 Transfers (B,C,W/C) (FIM): 5 Gait (FIM): 1 Gait Distance Comment: 30' Gait Level of Assist: 4 Gait Assistive Device: FWW Wheelchair Distance: 150'x2 PT Script Supervisor Goals Prison Goals PT Prison Goals Time Frame: May 11, 2018 Transfers (B,C,W/C) (FIM): 6 Sit to Lying (QC): 6 Lying-Sitting on Side/Bed(QC): 6 Sit to Stand (QC): 6 Rollin Roll Left to Right (QC): 6 Chair/Zrk-fo-Sqfij Xfer(QC): 6 Car Transfer (QC): 6 Gait (FIM): 2 Distance: 50' Walk 10 feet (QC): 4 Walk 10ft-Uneven Surface(QC): 4 Walk 50ft with 2 Turns (QC): 4 Gait Level of Assist: 5 Gait Assistive Device: FWW Stairs (FIM): 2 # of Steps: 4 1 Step (curb) (QC): 4 4 Steps (QC): 4 Stairs Level Of Assist: 4 PT Plan Problem List Problem List: Activity Tolerance, Functional Strength, Safety, Balance, Gait, Transfer Treatment/Plan Treatment Plan: Continue Plan of Care Treatment Plan: Bed Mobility, Concurrent Therapy, Education, Functional Activity Karen, Functional Strength, Group Therapy, Gait, Safety, Therapeutic Exercise, Transfers Treatment Duration: May 11, 2018 Frequency: At least 5 of 7 days/Wk (IRF) Estimated Hrs Per Day: 1.5 hours per day Patient and/or Family Agrees t: Yes Safety Risks/Education Patient Education: Transfer Techniques, Correct Positioning, Safety Issues Teaching Recipient: Patient Teaching Methods: Discussion Response to Teaching: Verbalize Understanding Time/GCodes Time In: 1000 Time Out: 1100 Total Billed Treatment Time: 60 Total Billed Treatment 1, EX x2 (30m), WCH (15m) & FA (15m) G Codes Necessary: SANDY Hitchcock PTA Apr 28, 2018 11:05
[2018-04-28 11:10] LABS: CALCIUM 8.4 MG/DL (8.5-10.1); CREATININE SERUM 3.16 MG/DL (0.60-1.30); POTASSIUM 4.5 MMOL/L (3.6-5.0)
--- NOTE | 2018-04-28 11:10 | Occupational Ther Daily Note ---
OT Current Status-Daily Note Subjective Pt sleeping in bed, difficult to wake. Pt agrees to therapy though appears unmotivated to do much. Pt c/o pain throughout body, rating 7-8, nrsg gave pain meds. Mental Status/Objective Patient Orientation: Person, Place, Time, Situation Functional [place] Measure 0=Not Assessed/NA 4=Minimal Assistance 1=Total Assistance 5=Supervision or Setup 2=Maximal Assistance 6=Modified [place] 3=Moderate Assistance 7=Complete [place] ADL-Treatment Functional [place] Measure 0=Not Assessed/NA 4=Minimal Assistance 1=Total Assistance 5=Supervision or Setup 2=Maximal Assistance 6=Modified [place] 3=Moderate Assistance 7=Complete IndependenceIRFPAI Quality Coding Scale 6 Independent with activity with or without an assistive device 5 Patient requires set up or clean up by helper. Patient completes activity by themselves 4 Supervision or touching assist (CGA). [place] provide cues , steadying assist 3 The helper provides less than half the effort to complete the activity 2 The helper provides more than half the effort to complete the activity 1 Dependent. The helper does all the effort to complete an activity 7 Patient refused to complete or attempt activity 9 The patient did not perform the activity before the current illness or injury 88 Not attempted due to Medical conditions or safety concerns Grooming (FIM): 6 (At w/c level, completes by self.) Oral Hygiene (QC): 6 Bathing (FIM): 5 (Pt completed sponge bath after set up with supervision in standing to cleanse symone area/buttocks due to knees spontaneously buckling.) Bathing Location: L Arm, R Arm, L Upper Leg, R Upper Leg, L Lower Leg ( including foot), R Lower Leg (including foot), Chest, Abdomen, Buttocks, Perineal Area Shower/Bathe Self (QC): 4 Upper Body (FIM): 6 (At w/c level retrieves clothing then in able to dress upper body.) Upper Body Dressing (QC): 6 Lower Body Dressing (FIM): 5 (Retrieves clothing at w/c level then is able to dress with supervision in standing to hike pants over hips.) Lower Body Dressing (QC): 4 On/Off Footwear (QC): 6 Toileting (FIM): 6 (Using w/c and grabbars, pt able to complete by self.) Toileting Hygiene (QC): 6 Transfers (B, C, W/C) (FIM): 6 (Safety concerns. Pt able to transfer with hand holds, SPT, surface to surface.) Toilet/Commode Transfer (FIM): 6 (Using w/c and grabbars, pt able to complete SPT. Safety concerns.) Toilet Transfer (QC): 6 Pt declines shower today. Other Treatment Pt maneuvered w/c to therapy gym, propelling with LE's and UE's. LE's started jerking with exertion from propelling chair. Pt completed UE exercises with 3# wt, 3 exercises 3 sets 10 reps. Resistive clothes pins with each hand to increase rv repair technician and pinch strength for daily functional tasks. Pt had difficulty following verbal directions with hand weights so required visual and gestural cues for correct movements. DOUGLAS set up work station in pt's room for pt to complete puzzles to engage pt and keep pt awake throughout day so she can sleep at night. PT took over care of pt in therapy gym. All needs met. OT Short Term Goals Short Term Goals Time Frame: May 04, 2018 Eating(FIM): 5 Grooming(FIM): 5 Bathing(FIM): 4 Upper Body Dressing(FIM): 5 Lower Body Dressing(FIM): 4 Toileting(FIM): 4 Transfers (B,C,W/C) (FIM): 5 Toilet/Commode Transfer(FIM): 5 Shower Transfer(FIM): 4 Additional Short Term Goals: 1-Demonstrate ADL Tasks, 2-Verbalize Understanding , 3-ImproveStrength/Karen 1=Demonstrate adherence to instructed precautions during ADL tasks. 2=Patient will verbalize/demonstrate understanding of assistive devices/ modifications for ADL. 3=Patient will improve strength/tolerance for activity to enable patient to perform ADL's. OT Half-Way Goals Materials Analyst Goals Time Frame: May 11, 2018 Eating (FIM): 6 Eating (QC): 6 Groomin Oral Hygiene (QC): 6 Bathing(FIM): 5 Shower/Bathe Self (QC): 5 Upper Body Dressing(FIM): 6 Upper Body Dressing (QC): 6 Lower Body Dressing(FIM): 6 Lower Body Dressing (QC): 6 On/Off Footwear (QC): 6 Toileting(FIM): 6 Toileting Hygiene (QC): 6 Transfers (B,C,W/C) (FIM): 6 Toilet/Commode Transfer(FIM): 6 Toilet/Commode Transfer (QC): 6 Shower Transfer(FIM): 5 Additional Goals: 1-Demonstrate ADL Tasks, 2-Verbalize Understanding, 3- ImproveStrength/Karen 1=Demonstrate adherence to instructed precautions during ADL tasks. 2=Patient will verbalize/demonstrate understanding of assistive devices/ modifications for ADL. 3=Patient will improve strength/tolerance for activity to enable patient to perform ADL's. OT Education/Plan Discharge Recommendations Plan/Recommendations: Continue POC Treatment Plan/Plan of Care Patient would benefit from OT for education, treatment and training to promote independence in ADL's, mobility, safety and/or upper extremity function for ADL' s. Plan of Care: ADL Retraining, Functional Mobility, Group Exercise/Act as Ind, UE Funct Exercise/Act Treatment Duration: May 11, 2018 Frequency: At least 5 of 7 days/Wk (IRF) Estimated Hrs Per Day: 1.5 hours per day Agreement: Yes Rehab Potential: Guarded Time/GCodes Start Time: 09:00 Stop Time: 10:00 Total Time Billed (hr/min): 60 Billed Treatment Time 1 visit-ADL 3 (40 min) EX 1 (20 min) NIKKI ROGERS Apr 28, 2018 11:10
[2018-04-28] MEDS: HYDROcodone/APAP 5 MG/325 MG (LORTAB) TAB PO PRN (13:13)
--- NOTE | 2018-04-28 14:50 | Therapy Group Daily Note ---
Therapy Daily Group Note Patient Education Topic Home Safety Exercises LE Seated Exercise, UE Exercise Other/Notes Pt propelled self in w/c to OT/PT group in therapy gym. Group consisted of introductions (name, place living, favorite season), socialization, seated UE/ LE exercises, ARU description/expectations, home safety trivia activity and home safety education. Pt introduced self appropriately and actively listened to peers. Pt contributed to conversations and interacted with peers throughout group. Pt was able to answer questions about home safety and verbalized understanding of educational topics. Completed UE/LE seated exercises with minimal difficulty. After therapy, pt requested to use toilet then transferred to bed. Call light/phone in reach. All needs met in room. Start Time: 13:00 Stop Time: 14:15 Total Billed Treatment Time: 75 Total Billed Treatment 1-visit NIKKI ROGERS Apr 28, 2018 14:50
[2018-04-28 17:47] VITALS: BP 107/64
[2018-04-28] MEDS: ATORVASTATIN 80 MG (LIPITOR) TABLET PO SCH (20:55)
[2018-04-28] MEDS: ASPIRIN E.C. 81 MG (ECOTRIN) TAB PO SCH (20:55)
[2018-04-28] MEDS: CLOPIDOGREL 75 MG (PLAVIX) TABLET PO SCH (20:55)
[2018-04-29 04:23] VITALS: BP 105/60
[2018-04-29] MEDS: inSUlin ASPART (NovoLOG) 1 UNIT/0.01 ML (CHARGE PER UNIT) SC SCH ×4 (06:00→21:12)
[2018-04-29] MEDS: PANTOPRAZOLE 40 MG (PROTONIX) TAB PO SCH (06:00)
[2018-04-29] MEDS: SUCRALFATE 1 GM (CARAFATE) TAB PO SCH ×4 (06:00→20:15)
[2018-04-29] MEDS: RT-ALBUTEROL/IPRATROPIUM 3 ML (DUONEB) VIAL INH SCH ×2 (07:42→19:39)
--- NOTE | 2018-04-29 08:10 | Progress Note (SOAP) ---
Subjective Time Seen by a Provider: 08:08 Subjective/Events-last exam Patient in bed resting comfortably. Patient voices no complaints. Patient not motivated. Patient depressed Objective Exam Vital Signs Date Time Temp Pulse Resp B/P (MAP) Pulse Ox O2 Delivery O2 Flow Rate FiO2 04/29/18 07:42 94 Room Air 04/29/18 04:23 99.9 96 18 105/60 (75) 97 Room Air 04/28/18 21:49 Room Air 04/28/18 20:06 94 Room Air 04/28/18 17:47 98.9 86 18 107/64 (78) 97 Room Air 04/28/18 08:33 Room Air I & O 04/29/18 07:00 Intake Total 1690 ml Balance 1690 ml Capillary Refill : General Appearance: No Apparent Distress, WD/WN, Thin HEENT: Normal ENT Inspection Neck: Full Range of Motion, Non Tender Respiratory: No Accessory Muscle Use, No Respiratory Distress, Decreased Breath Sounds Cardiovascular: Regular Rate, Rhythm Gastrointestinal: non tender, soft Results Lab Laboratory Tests 04/28/18 10:42: Sodium Level 132L, Potassium Level 4.5, Chloride Level 99, Carbon Dioxide Level 21, Anion Gap 12, Blood Urea Nitrogen 45H, Creatinine 3.16H, Estimat Glomerular Filtration Rate 14, BUN/Creatinine Ratio 14, Glucose Level 240H, Calcium Level 8.4L, B-Type Natriuretic Peptide 3232.6H 04/28/18 16:00: Glucometer 215H 04/28/18 20:01: Glucometer 250H 04/28/18 21:21: 04/29/18 04:50: Glucometer 196H Assessment/Plan Assessment/Plan Assess & Plan/Chief Complaint Myopathy. Unsteady gait. Congestive heart failure. Renal insufficiency. Diabetes. Coronary artery disease. Noncompliance history. Tobaccoism. . . Myopathy. Unsteady gait. Congestive heart failure better. Renal insufficiency stable. Diabetes. Coronary artery disease. Noncompliance history. Tobaccoism. . 04/25/18. Myopathy. Unsteady gait. Renal insufficiency worse. Diabetes. Coronary artery disease. Tobaccoism. Noncompliance history. Patient having pain in the knees. . 04/26/18. Unsteady gait. Myopathy. Renal insufficiency. Diabetes. Coronary artery disease. Tobaccoism. Patient feels down today. . 04/27/18. Myopathy. Unsteady gait. Lactic pain. Renal insufficiency. Diabetes. Coronary artery disease. Tobaccoism. Patient having back pain today. . 04/28/18. Unsteady gait. Renal insufficiency. Knee pain. Coronary artery disease. Tobaccoism. Patient in bed this morning lethargic. . 04/29/18. Unsteady gait. Renal insufficiency. Knee pain. Coronary artery disease. Tobaccoism. Depression Clinical Quality Measures DVT/VTE Risk/Contraindication: Risk Factor Score Per Nursin RFS Level Per Nursing on Admit: 4+=Very High MERRICK SIEGEL DO Apr 29, 2018 08:10
[2018-04-29] MEDS: GABAPENTIN 300 MG (NEURONTIN) CAP PO SCH ×2 (08:17→20:15)
[2018-04-29] MEDS: FUROSEMIDE 40 MG (LASIX) TAB PO SCH (08:17)
[2018-04-29] MEDS: SENNA W/DOCUSATE (SENOKOT S) TABLET PO SCH ×2 (08:17→20:17)
--- NOTE | 2018-04-29 09:02 | Physical Therapy Daily Note ---
PT Daily Note-Current Subjective Pt. asleep and when awakened states she has a long habit of staying up very late at night and sleeping days so this has been a challenge here. States the shakiness,weakness and instability in her legs has not improved. Pt. declines gait trials , agrees to w/c mobility Pain Numeric Pain Scale: 0-No Pain Mental Status Patient Orientation: Person, Place Transfers Functional [place] Measure 0=Not Assessed/NA 4=Minimal Assistance 1=Total Assistance 5=Supervision or Setup 2=Maximal Assistance 6=Modified [place] 3=Moderate Assistance 7=Complete IndependenceIRFPAI Quality Coding Scale 6 Independent with activity with or without an assistive device 5 Patient requires set up or clean up by helper. Patient completes activity by themselves 4 Supervision or touching assist (CGA). [place] provide cues , steadying assist 3 The helper provides less than half the effort to complete the activity 2 The helper provides more than half the effort to complete the activity 1 Dependent. The helper does all the effort to complete an activity 7 Patient refused to complete or attempt activity 9 The patient did not perform the activity before the current illness or injury 88 Not attempted due to Medical conditions or safety concerns Transfers (B, C, W/C) (FIM): 4 Scootin Rollin Supine to/from Sit: 4 Sit to/from Stand: 4 Bed to/from Chair: 4 (SPT bed to w/c) Weight Bearing Right Lower Extremity: Right Weight Bearing/Tolerated Left Lower Extremity: Left Weight Bearing/Tolerated Gait Training Does the Patient Walk?: Yes Gait (FIM): 1 Distance (FIM): 1=up to 49 ft (3-4) Gait Level of Assist: 4 Gait Persons Needed: 1 Gait Assistive Device: FWW side steps to from walker etc side step etc , legs shaking etc Wheelchair Training Does the Pt Use a Wheelchair?: Yes Wheelchair (FIM): 5 Wheelchair Distance: 3=150 ft (200x2) Wheelchair Level of Assist: 5 Type of Wheelchair: Manual Exercises Supine Ex: Bridging, Ankle pumps, Quad Set, Rolling, Glut sets, Heel Slides, Short Arc Quads, Scooting, Straight leg raise (assist x 5 trials), Hip abd/add Supine Reps: 15 Seated Therapy Exercises: Ankle pumps, Sit to stand, Long arc quads Seated Reps: 10 NuStep Minutes: 10 NuStep Workload: 1 Treatments leg presses on Nustep x 8. toileted and changed pad in pants SPT from w/c to toilet and back CGA, managing clean up and pad etc SBA, washed hands at sink and manuevered w/c in bthrm mod I , direction only Assessment Current Status: Good Progress till unsafe on feet at times. PT Short Term Goals Short Term Goals Time Frame: Apr 27, 2018 Transfers (B,C,W/C) (FIM): 5 Gait (FIM): 1 Gait Distance Comment: 30' Gait Level of Assist: 4 Gait Assistive Device: FWW Wheelchair Distance: 150'x2 PT Project Associate Goals Project Associate Goals PT Project Associate Goals Time Frame: May 11, 2018 Transfers (B,C,W/C) (FIM): 6 Sit to Lying (QC): 6 Lying-Sitting on Side/Bed(QC): 6 Sit to Stand (QC): 6 Rollin Roll Left to Right (QC): 6 Chair/Dvx-rc-Ksnvb Xfer(QC): 6 Car Transfer (QC): 6 Gait (FIM): 2 Distance: 50' Walk 10 feet (QC): 4 Walk 10ft-Uneven Surface(QC): 4 Walk 50ft with 2 Turns (QC): 4 Gait Level of Assist: 5 Gait Assistive Device: FWW Stairs (FIM): 2 # of Steps: 4 1 Step (curb) (QC): 4 4 Steps (QC): 4 Stairs Level Of Assist: 4 PT Plan Treatment/Plan Treatment Plan: Continue Plan of Care Treatment Plan: Bed Mobility, Concurrent Therapy, Education, Functional Activity Karen, Functional Strength, Group Therapy, Gait, Safety, Therapeutic Exercise, Transfers Treatment Duration: May 11, 2018 Frequency: At least 5 of 7 days/Wk (IRF) Estimated Hrs Per Day: 1.5 hours per day Patient and/or Family Agrees t: Yes Safety Risks/Education Patient Education: Gait Training, Transfer Techniques, Correct Positioning, Disease Process, Safety Issues Teaching Recipient: Patient Teaching Methods: Demonstration, Discussion Response to Teaching: Verbalize Understanding, Return Demonstration, Reinforcement Needed Time/GCodes Time In: 800 Time Out: 900 Total Billed Treatment Time: 60 Total Billed Treatment 1,EX30m,WC15m,FA15m G Codes Necessary: ISAIAH Rosenthal FABRICATION AND ASSEMBLY SUPERVISOR Apr 29, 2018 09:02
--- NOTE | 2018-04-29 09:10 | Occupational Ther Daily Note ---
OT Current Status-Daily Note Subjective Pt up in w/c, starting to eat breakfast. Pt in a grumpy mood, one word answers or does not respond. Pt required encouragement to participate with Occupational Therapy. Mental Status/Objective Patient Orientation: Person, Place Functional [place] Measure 0=Not Assessed/NA 4=Minimal Assistance 1=Total Assistance 5=Supervision or Setup 2=Maximal Assistance 6=Modified [place] 3=Moderate Assistance 7=Complete [place] ADL-Treatment After set up, pt able to complete sponge bath sitting in w/c. Set up for dressing. Pt's knees buckled when pt was standing to hike pants over hips. Pt took increased time to complete all tasks due to decreased motivation and c/o fatigue and pain. After therapy, pt lying in bed with call light/phone in reach. All needs met in room. Functional [place] Measure 0=Not Assessed/NA 4=Minimal Assistance 1=Total Assistance 5=Supervision or Setup 2=Maximal Assistance 6=Modified [place] 3=Moderate Assistance 7=Complete IndependenceIRFPAI Quality Coding Scale 6 Independent with activity with or without an assistive device 5 Patient requires set up or clean up by helper. Patient completes activity by themselves 4 Supervision or touching assist (CGA). [place] provide cues , steadying assist 3 The helper provides less than half the effort to complete the activity 2 The helper provides more than half the effort to complete the activity 1 Dependent. The helper does all the effort to complete an activity 7 Patient refused to complete or attempt activity 9 The patient did not perform the activity before the current illness or injury 88 Not attempted due to Medical conditions or safety concerns OT Short Term Goals Short Term Goals Time Frame: May 04, 2018 Eating(FIM): 5 Grooming(FIM): 5 Bathing(FIM): 4 Upper Body Dressing(FIM): 5 Lower Body Dressing(FIM): 4 Toileting(FIM): 4 Transfers (B,C,W/C) (FIM): 5 Toilet/Commode Transfer(FIM): 5 Shower Transfer(FIM): 4 Additional Short Term Goals: 1-Demonstrate ADL Tasks, 2-Verbalize Understanding , 3-ImproveStrength/Karen 1=Demonstrate adherence to instructed precautions during ADL tasks. 2=Patient will verbalize/demonstrate understanding of assistive devices/ modifications for ADL. 3=Patient will improve strength/tolerance for activity to enable patient to perform ADL's. OT Hand Flatwork Finisher Goals Detention Goals Time Frame: May 11, 2018 Eating (FIM): 6 Eating (QC): 6 Groomin Oral Hygiene (QC): 6 Bathing(FIM): 5 Shower/Bathe Self (QC): 5 Upper Body Dressing(FIM): 6 Upper Body Dressing (QC): 6 Lower Body Dressing(FIM): 6 Lower Body Dressing (QC): 6 On/Off Footwear (QC): 6 Toileting(FIM): 6 Toileting Hygiene (QC): 6 Transfers (B,C,W/C) (FIM): 6 Toilet/Commode Transfer(FIM): 6 Toilet/Commode Transfer (QC): 6 Shower Transfer(FIM): 5 Additional Goals: 1-Demonstrate ADL Tasks, 2-Verbalize Understanding, 3- ImproveStrength/Karen 1=Demonstrate adherence to instructed precautions during ADL tasks. 2=Patient will verbalize/demonstrate understanding of assistive devices/ modifications for ADL. 3=Patient will improve strength/tolerance for activity to enable patient to perform ADL's. OT Education/Plan Discharge Recommendations Plan/Recommendations: Continue POC Treatment Plan/Plan of Care Patient would benefit from OT for education, treatment and training to promote independence in ADL's, mobility, safety and/or upper extremity function for ADL' s. Plan of Care: ADL Retraining, Functional Mobility, Group Exercise/Act as Ind, UE Funct Exercise/Act Treatment Duration: May 11, 2018 Frequency: At least 5 of 7 days/Wk (IRF) Estimated Hrs Per Day: 1.5 hours per day Agreement: Yes Rehab Potential: Guarded Time/GCodes Start Time: 09:00 Stop Time: 10:00 Total Time Billed (hr/min): 60 Billed Treatment Time 1 visit-ADL 2 (30 min) FA 2 (30 min) NIKKI ROGERS Apr 29, 2018 09:10
--- NOTE | 2018-04-29 09:15 | PM & R (SOAP) Progress Note ---
Subjective This was a face to face visit with the patient. Date Seen by Provider: Apr 29, 2018 Time Seen by Provider: 09:00 Subjective/Events-last exam Patient was seen in her room this AM Patient Min assist for transfers.Eating breakfast Independently sitting in W/C Review of Systems General: Other (insomnia) Objective Physician Exam Last Set of Vital Signs Vital Signs Date Time Temp Pulse Resp B/P (MAP) Pulse Ox O2 Delivery O2 Flow Rate FiO2 04/29/18 07:42 94 Room Air 04/29/18 04:23 99.9 96 18 105/60 (75) Capillary Refill : I&O Intake and Output 04/29/18 00:00 Intake Total 1550 ml Balance 1550 ml Intake Oral 1550 ml # Voids 5 # Bowel Movements 1 General: Alert, Oriented X3, Cooperative, No Acute Distress HEENT: Atraumatic, PERRLA, EOMI, Mucous Memb Moist/Progress Neck: Supple, No JVD Lungs: Other (decreased breath sounds) Heart: Regular Rate Abdomen: Normal Bowel Sounds, Soft, No Tenderness Extremities: No Edema Neuro: Other ( hip flex 3/5 knee flex 4-/5 knee ext 4-/5 dorsiflex 4/5) Psych/Mental Status: Mental Status NL Results Lab Data Laboratory Tests 04/26/18 10:56: Glucometer 271H 04/26/18 17:00: Glucometer 183H 04/26/18 21:47: Glucometer 181H 04/27/18 05:17: Glucometer 165H 04/27/18 05:58: White Blood Count 8.4, Red Blood Count 3.00L, Hemoglobin 8.8L, Hematocrit 27L, Mean Corpuscular Volume 91, Mean Corpuscular Hemoglobin 29, Mean Corpuscular Hemoglobin Concent 32, Red Cell Distribution Width 15.1H, Platelet Count 272, Mean Platelet Volume 9.2, Sodium Level 133L, Potassium Level 4.9, Chloride Level 100, Carbon Dioxide Level 20L, Anion Gap 13, Blood Urea Nitrogen 42H, Creatinine 2.84H, Estimat Glomerular Filtration Rate 16, BUN/Creatinine Ratio 15 , Glucose Level 161H, Calcium Level 8.3L 04/27/18 11:20: Glucometer 291H 04/27/18 17:10: Glucometer 248H 04/27/18 19:53: Glucometer 256H 04/28/18 04:47: Glucometer 122H 04/28/18 10:42: Sodium Level 132L, Potassium Level 4.5, Chloride Level 99, Carbon Dioxide Level 21, Anion Gap 12, Blood Urea Nitrogen 45H, Creatinine 3.16H, Estimat Glomerular Filtration Rate 14, BUN/Creatinine Ratio 14, Glucose Level 240H, Calcium Level 8.4L, B-Type Natriuretic Peptide 3232.6H 04/28/18 16:00: Glucometer 215H 04/28/18 20:01: Glucometer 250H 04/28/18 21:21: 04/29/18 04:50: Glucometer 196H Assessment/Plan Assessment and Plan CHF myopathy with prox lower limb weakness improving Hx of falls COPD Nausea/constipation improved Anemia Insomnia Plan Continue PT/OT Discharge remains set for next Wednesday tentatively F/U re insomnia as needed-Patient indicates that it is a chronic problem Co-Morbidities that are continuing to impact the rehab process: (include details ) TAWNY GALEANO MD Apr 29, 2018 09:15
[2018-04-29] MEDS: lisINopril 5 MG (PRINIVIL) TABLET PO SCH (09:19)
[2018-04-29] MEDS: HYDROcodone/APAP 5 MG/325 MG (LORTAB) TAB PO PRN ×2 (09:20→13:15)
[2018-04-29 10:05] VITALS: BP 112/64
[2018-04-29] MEDS: ONDANSETRON 4 MG (ZOFRAN) ORAL DISSOLVE TAB PO PRN (10:09)
[2018-04-29] MEDS: SOD CHL GEL 0.5 OZ (AYR SALINE NASAL GEL) TUBE TOP PRN (12:43)
--- NOTE | 2018-04-29 14:35 | Therapy Group Daily Note ---
Therapy Daily Group Note Patient Education Topic Other List Below (memory strategies) Other/Notes Pt propelled w/c to OT/PT group in [facility]. Group consisted of introductions (name, place living, what makes you famous), socialization, memory education, memory strategies, memory activity and senses with aging. Pt introduced self appropriately and actively listened to peers. Pt was able to verbalize understanding of educational topics and give strategies for memory. Pt contributed to conversations with peers and group discussions throughout group. Pt propelled w/c back to room and laid down in bed. Call light/phone in reach. Behavioral Health in room. All needs met in room. Start Time: 13:00 Stop Time: 14:10 Total Billed Treatment Time: 70 Total Billed Treatment 1-GRP NIKKI ROGERS Apr 29, 2018 14:35
--- NOTE | 2018-04-29 15:10 | Behavioral Health Consult ---
Consult- Consult Date Seen by Provider: Apr 29, 2018 Time Seen by Provider: 14:00 Patient: Rani Aaron : 1940 Date: 04/29/2018 Referral: Dr. Myles CPT Code: 75182 Psychodiagnostic Examination and 53488 Interactive Complexity, 1 unit(s) Start Time: 1400 Stop Time: 1512 Chief Complaint: Low motivation Referral: Rani Aaron is a 77 year old female referred by Dr. Myles for a clinical diagnostic assessment. Information sources for this evaluation include self-report/observation, nursing staff and medical records. Presenting Problem: The presenting clinical problem is low motivation. Duration of the current problem was indeterminate given the available information. Rani was assessed in her hospital room at [facility]. She had just completed group and was sitting up in her bed wearing sweatpants and a sweater. She was alert and cooperative to participate in the assessment. Rani was admitted to the inpatient rehabilitation unit on 04/20/18 due to lower limb weakness. Rani states that she has had this problem long-term and she has fallen several times at home. She expressed that she does not feel that her legs are going to work or get any stronger. She states that she has tried, but it is not going to do any good. Rani states that she lives at home with her of 21 years in [place], [place]. Her granddaughter and her 8-year-old great-grandson also reside there. She minimized the need to be independent by stating that her told her that he wanted her home even if she is in bed all the time. She states that her granddaughter completes most of the cooking and housework. She also expressed how her family comes to see her and she has no need to get out of the house. Rani has been three times previously and each time. She has five sons and one daughter. 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 She was fairly oriented with knowledge of the date, hospital and room number, but thought she was in [place]. Rani denied depression or anxiety, but acknowledge fears of getting old. She states that she has accepted that her legs are not going to get stronger, but she is worried that the rest of her body will go downhill. She was given a great deal of reassurance in the staff on the rehabilitation unit and encouraged to work with them. She was discouraged from "accepting" that she was not going to get stronger and try her best. She states that she would start working harder tomorrow. Symptoms observed or reported requiring current level of care include depressed mood, fatigue/low energy, sleep (onset delay/easily awakened), and worry. Observations/Mental Status: Nimo general approach to the evaluation indicated interest. Orientation was intact for person, place, time, and situation. Rani evidenced good understanding of the reason for the appointment. The predominant mood was that of euthymic with affect appropriate to expressed concerns and presenting problem. Immediate attention and concentration was unremarkable clinically during the interview. Level of intellectual functioning compared to same age peers was average range. Thought processes were found to be generally logical, coherent and goal directed. Thought content appeared normal. Psychomotor functioning was within normal limits. Tone of voice was normal and controlled and manner of speech was normal. Expressive speech was marked by fluent speech and language. Current destructive behavior patterns: none reported or indicated. Disturbance in sleep patterns: poor sleep onset and difficulty staying asleep. Eye contact was fair. Insight was average. Psychiatric History: Current medications: Nursing staff reported that Rani was started on Zoloft yesterday. It does not appear that this order was complete and the staff is verifying it. Rani states that she has taken Zoloft in the past and was willing to cooperate with taking it again.. Current physician is Dr. Shultz. Summary of Assessment Information/Prognosis: Nimo presenting problem and symptoms appear consistent with a preliminary diagnosis of F43.23 Adjustment Disorder with Mixed Anxiety and Depressed Moods at this point. Current emotional symptoms are of moderate intensity. Rani appears to have a personality style of doing things her way. She has accepted that her legs are weak and she has little desire to push herself to get stronger. The use of an antidepressant may provide her with improved energy and focus to motivate her progress. Diagnostic Impressions: ICD-10: F43.23 Adjustment Disorder with Mixed Anxiety and Depressed Moods Initial Treatment Plan/Recommendations: The recommendations at this time include the following: Medication management for depression. Continued support and reassurance to promote progress. JOHN SIGALA Mini Apr 29, 2018 15:10
[2018-04-29] MEDS: MELATONIN 3 MG TABLET PO SCH (20:15)
[2018-04-29] MEDS: ATORVASTATIN 80 MG (LIPITOR) TABLET PO SCH (20:15)
[2018-04-29] MEDS: CLOPIDOGREL 75 MG (PLAVIX) TABLET PO SCH (20:15)
[2018-04-29] MEDS: SERTRALINE 50 MG (ZOLOFT) TABLET PO SCH (20:15)
[2018-04-29] MEDS: ASPIRIN E.C. 81 MG (ECOTRIN) TAB PO SCH (20:15)
[2018-04-29] MEDS ORDERED: SERTRALINE 50 MG (ZOLOFT) TABLET PO SCH (21:00)
[2018-04-30 05:00] VITALS: BP 100/59
[2018-04-30] MEDS: PANTOPRAZOLE 40 MG (PROTONIX) TAB PO SCH (06:09)
[2018-04-30] MEDS: SUCRALFATE 1 GM (CARAFATE) TAB PO SCH ×4 (06:09→20:28)
[2018-04-30] MEDS: inSUlin ASPART (NovoLOG) 1 UNIT/0.01 ML (CHARGE PER UNIT) SC SCH ×4 (06:10→21:23)
[2018-04-30] MEDS: RT-ALBUTEROL/IPRATROPIUM 3 ML (DUONEB) VIAL INH SCH ×2 (08:08→19:48)
[2018-04-30 08:36] VITALS: BP 131/68
[2018-04-30] MEDS: HYDROcodone/APAP 5 MG/325 MG (LORTAB) TAB PO PRN ×3 (08:38→17:06)
[2018-04-30] MEDS: GABAPENTIN 300 MG (NEURONTIN) CAP PO SCH ×2 (08:39→20:29)
[2018-04-30] MEDS: FUROSEMIDE 40 MG (LASIX) TAB PO SCH (08:39)
[2018-04-30] MEDS: lisINopril 5 MG (PRINIVIL) TABLET PO SCH (08:39)
[2018-04-30] MEDS: SENNA W/DOCUSATE (SENOKOT S) TABLET PO SCH ×2 (08:40→20:29)
--- NOTE | 2018-04-30 10:34 | Physical Therapy Daily Note ---
PT Daily Note-Current Subjective Pt. agrees to bed exercises only. States she is so tired and all she wants is sleep this weekend. " Ill work only if I can do it right here in this bed" C/O shakiness and lack of control in LES and trunk with bridging Pain Numeric Pain Scale: 0-No Pain Mental Status Patient Orientation: Person, Place, Time, Situation Transfers Functional [place] Measure 0=Not Assessed/NA 4=Minimal Assistance 1=Total Assistance 5=Supervision or Setup 2=Maximal Assistance 6=Modified [place] 3=Moderate Assistance 7=Complete IndependenceIRFPAI Quality Coding Scale 6 Independent with activity with or without an assistive device 5 Patient requires set up or clean up by helper. Patient completes activity by themselves 4 Supervision or touching assist (CGA). [place] provide cues , steadying assist 3 The helper provides less than half the effort to complete the activity 2 The helper provides more than half the effort to complete the activity 1 Dependent. The helper does all the effort to complete an activity 7 Patient refused to complete or attempt activity 9 The patient did not perform the activity before the current illness or injury 88 Not attempted due to Medical conditions or safety concerns Scootin Rollin Weight Bearing Right Lower Extremity: Right Weight Bearing/Tolerated Left Lower Extremity: Left Weight Bearing/Tolerated Exercises Supine Ex: Bridging (x5 with poor control), Ankle pumps, Quad Set, Rolling, Glut sets, Heel Slides, Short Arc Quads, Scooting, Straight leg raise, Hip abd/ add Supine Reps: 15 Assessment Current Status: Fair Progress shakiness and poor control continues mostly noted proximally PT Short Term Goals Short Term Goals Time Frame: Apr 27, 2018 Transfers (B,C,W/C) (FIM): 5 Gait (FIM): 1 Gait Distance Comment: 30' Gait Level of Assist: 4 Gait Assistive Device: FWW Wheelchair Distance: 150'x2 PT Penitentiary Goals Supply Clerk Goals PT Supply Clerk Goals Time Frame: May 11, 2018 Transfers (B,C,W/C) (FIM): 6 Sit to Lying (QC): 6 Lying-Sitting on Side/Bed(QC): 6 Sit to Stand (QC): 6 Rollin Roll Left to Right (QC): 6 Chair/Kfa-vq-Xebqv Xfer(QC): 6 Car Transfer (QC): 6 Gait (FIM): 2 Distance: 50' Walk 10 feet (QC): 4 Walk 10ft-Uneven Surface(QC): 4 Walk 50ft with 2 Turns (QC): 4 Gait Level of Assist: 5 Gait Assistive Device: FWW Stairs (FIM): 2 # of Steps: 4 1 Step (curb) (QC): 4 4 Steps (QC): 4 Stairs Level Of Assist: 4 PT Plan Treatment/Plan Treatment Plan: Continue Plan of Care Treatment Plan: Bed Mobility, Concurrent Therapy, Education, Functional Activity Karen, Functional Strength, Group Therapy, Gait, Safety, Therapeutic Exercise, Transfers Treatment Duration: May 11, 2018 Frequency: At least 5 of 7 days/Wk (IRF) Estimated Hrs Per Day: 1.5 hours per day Patient and/or Family Agrees t: Yes Safety Risks/Education Patient Education: Correct Positioning, Safety Issues Teaching Recipient: Patient Teaching Methods: Demonstration, Discussion Response to Teaching: Verbalize Understanding, Return Demonstration, Reinforcement Needed Time/GCodes Time In: 1010 Time Out: 1030 Total Billed Treatment Time: 20 Total Billed Treatment 1,EX20m G Codes Necessary: ISAIAH Rosenthal SOD STRIPPER Apr 30, 2018 10:34
--- NOTE | 2018-04-30 11:52 | Progress Note-Hospitalist ---
Subjective HPI/CC On Admission Date Seen by Provider: Apr 30, 2018 Time Seen by Provider: 11:45 Subjective/Events-last exam Patient doing about the same Elevated creatinine concerning the nurse and we talked about that extensively so will hold Lasix and lisinopril and update Dr. Francois who is on-call for cardiology and stop Motrin Bowels are moving okay on bowel regimen Pain medication taken on a regular basis She reports she does not see a fuel pilot engineer but will need to have a close follow -up and establish due to renal insufficiency Baseline creatinine is renal insufficient No shortness of breath or edema currently Patient does not seem to be progressing and improving with physical therapy so unsure if that is a metabolic problem from the renal insufficiency Reviewed creatinine that was normal October 2017 of this year then reed to 4.0 and has had issues ever since Pt forgetting details per RN Dr Gay performed bypass surgery 1 yr ago she reports Review of Systems Musculoskeletal: leg pain Objective Exam Vital Signs Vital Signs Date Time Temp Pulse Resp B/P (MAP) Pulse Ox O2 Delivery O2 Flow Rate FiO2 04/30/18 09:20 Room Air 04/30/18 08:36 92 131/68 (89) 04/30/18 08:08 92 04/30/18 05:00 98.3 18 Capillary Refill : General Appearance: No Apparent Distress, WD/WN, Chronically ill, Thin Respiratory: Chest Non Tender, Lungs Clear, Normal Breath Sounds, No Accessory Muscle Use, No Respiratory Distress, Decreased Breath Sounds Cardiovascular: Regular Rate, Rhythm, No Edema, No Gallop, No JVD, No Murmur, Normal Peripheral Pulses Extremity: No Pedal Edema Neurologic/Psychiatric: Alert, Oriented x3, No Motor/Sensory Deficits, Normal Mood/Affect Skin: Normal Color, Warm/Dry Results/Procedures Lab Patient resulted labs reviewed. Assessment/Plan Assessment and Plan Assess & Plan/Chief Complaint Assessment: Acute on chronic renal failure CHF Debility GERD Smoker HTN Plan: Monitor creatinine Hold Lasix and ACEi Monitor closely Diagnosis/Problems Diagnosis/Problems (1) Renal failure (ARF), acute on chronic Status: Acute Qualifiers: Acute renal failure type: unspecified (2) Heartburn Status: Resolved (3) Myopathy Status: Acute (4) Uncontrolled diabetes mellitus Status: Chronic Qualifiers: Diabetes mellitus type: type 2 Glycemic state: with hyperglycemia Qualified Codes: E11.65 - Type 2 diabetes mellitus with hyperglycemia (5) CAD (coronary artery disease) Status: Chronic Qualifiers: Coronary Disease-Associated Artery/Lesion type: [place] artery [place] vs. transplanted heart: [place] heart Associated angina: with stable angina Qualified Codes: I25.118 - Atherosclerotic heart disease of [place] coronary artery with other forms of angina pectoris (6) Anemia Status: Chronic Qualifiers: Anemia type: due to chronic kidney disease Chronic kidney disease stage: stage 4 (severe) Qualified Codes: N18.4 - Chronic kidney disease, stage 4 ( severe); D63.1 - Anemia in chronic kidney disease (7) Smoking Status: Chronic Clinical Quality Measures DVT/VTE Risk/Contraindication: Risk Factor Score Per Nursin RFS Level Per Nursing on Admit: 4+=Very High EZEKIEL CHOUDHARY DO Apr 30, 2018 11:52
[2018-04-30] MEDS: SOD CHL GEL 0.5 OZ (AYR SALINE NASAL GEL) TUBE TOP PRN (12:53)
[2018-04-30 16:09] VITALS: BP 112/66
[2018-04-30] MEDS: SERTRALINE 50 MG (ZOLOFT) TABLET PO SCH (20:28)
[2018-04-30] MEDS: ASPIRIN E.C. 81 MG (ECOTRIN) TAB PO SCH (20:28)
[2018-04-30] MEDS: ATORVASTATIN 80 MG (LIPITOR) TABLET PO SCH (20:28)
[2018-04-30] MEDS: MELATONIN 3 MG TABLET PO SCH (20:29)
[2018-04-30] MEDS: CLOPIDOGREL 75 MG (PLAVIX) TABLET PO SCH (20:29)
[2018-05-01 05:10] VITALS: BP 111/60
[2018-05-01] MEDS: inSUlin ASPART (NovoLOG) 1 UNIT/0.01 ML (CHARGE PER UNIT) SC SCH ×4 (05:47→20:48)
[2018-05-01 06:10] LABS: BASOPHILS % (AUTO) 1 % (0-10); EOSINOPHILS # (AUTO) 0.2 10^3/uL (0.0-0.3); EOSINOPHILS % (AUTO) 3 % (0-10); HEMATOCRIT 26 % (35-52); LYMPHOCYTES # (AUTO) 1.5 X 10^3 (1.0-4.0); LYMPHOCYTES % (AUTO) 23 % (12-44); MEAN CORPUSCULAR HEMOGLOBIN 28 PG (25-34); MEAN CORPUSCULAR HGB CONC 31 G/DL (32-36); MEAN CORPUSCULAR VOLUME 90 FL (80-99); MEAN PLATELET VOLUME 9.6 FL (7.4-10.4); MONOCYTES # (AUTO) 0.7 X 10^3 (0.0-1.0); MONOCYTES % (AUTO) 10 % (0-12); NEUTROPHILS # (AUTO) 4.3 X 10^3 (1.8-7.8); NEUTROPHILS % (AUTO) 64 % (42-75); PLATELET COUNT 352 10^3/uL (130-400); RED BLOOD COUNT 2.82 10^6/uL (4.35-5.85); RED CELL DISTRIBUTION WIDTH 15.1 % (10.0-14.5); WHITE BLOOD COUNT 6.7 10^3/uL (4.3-11.0)
[2018-05-01] MEDS: SUCRALFATE 1 GM (CARAFATE) TAB PO SCH ×4 (06:24→20:49)
[2018-05-01] MEDS: PANTOPRAZOLE 40 MG (PROTONIX) TAB PO SCH (06:24)
[2018-05-01 06:29] LABS: ALBUMIN 2.7 GM/DL (3.2-4.5); BILIRUBIN,TOTAL 0.3 MG/DL (0.1-1.0); CALCIUM 8.6 MG/DL (8.5-10.1); CREATININE SERUM 3.13 MG/DL (0.60-1.30); POTASSIUM 4.8 MMOL/L (3.6-5.0); TOTAL PROTEIN 6.5 GM/DL (6.4-8.2)
[2018-05-01 07:48] VITALS: BP 103/57
[2018-05-01] MEDS: SENNA W/DOCUSATE (SENOKOT S) TABLET PO SCH ×2 (07:49→20:49)
[2018-05-01] MEDS: GABAPENTIN 300 MG (NEURONTIN) CAP PO SCH ×2 (07:49→20:49)
[2018-05-01] MEDS: HYDROcodone/APAP 5 MG/325 MG (LORTAB) TAB PO PRN ×2 (07:50→13:28)
[2018-05-01] MEDS: RT-ALBUTEROL/IPRATROPIUM 3 ML (DUONEB) VIAL INH SCH ×2 (09:03→19:28)
[2018-05-01] MEDS: ONDANSETRON 4 MG (ZOFRAN) ORAL DISSOLVE TAB PO PRN (11:54)
[2018-05-01 17:16] VITALS: BP 100/58
[2018-05-01] MEDS: ATORVASTATIN 80 MG (LIPITOR) TABLET PO SCH (20:48)
[2018-05-01] MEDS: ASPIRIN E.C. 81 MG (ECOTRIN) TAB PO SCH (20:49)
[2018-05-01] MEDS: CLOPIDOGREL 75 MG (PLAVIX) TABLET PO SCH (20:49)
[2018-05-01] MEDS: SERTRALINE 50 MG (ZOLOFT) TABLET PO SCH (20:49)
[2018-05-01] MEDS: MELATONIN 3 MG TABLET PO SCH (20:49)
[2018-05-02 05:10] VITALS: BP 98/58
[2018-05-02] MEDS: inSUlin ASPART (NovoLOG) 1 UNIT/0.01 ML (CHARGE PER UNIT) SC SCH ×4 (05:52→21:12)
[2018-05-02] MEDS: PANTOPRAZOLE 40 MG (PROTONIX) TAB PO SCH (06:25)
[2018-05-02] MEDS: SUCRALFATE 1 GM (CARAFATE) TAB PO SCH ×4 (06:25→20:28)
[2018-05-02] MEDS: HYDROcodone/APAP 5 MG/325 MG (LORTAB) TAB PO PRN ×3 (06:32→19:25)
[2018-05-02] MEDS: RT-ALBUTEROL/IPRATROPIUM 3 ML (DUONEB) VIAL INH SCH ×2 (06:58→19:58)
[2018-05-02 07:06] LABS: BASOPHILS % (AUTO) 0 % (0-10); EOSINOPHILS # (AUTO) 0.2 10^3/uL (0.0-0.3); EOSINOPHILS % (AUTO) 2 % (0-10); HEMATOCRIT 26 % (35-52); HEMOGLOBIN 8.1 G/DL (11.5-16.0); LYMPHOCYTES # (AUTO) 1.5 X 10^3 (1.0-4.0); LYMPHOCYTES % (AUTO) 22 % (12-44); MEAN CORPUSCULAR HEMOGLOBIN 28 PG (25-34); MEAN CORPUSCULAR HGB CONC 31 G/DL (32-36); MEAN CORPUSCULAR VOLUME 90 FL (80-99); MEAN PLATELET VOLUME 9.5 FL (7.4-10.4); MONOCYTES # (AUTO) 0.6 X 10^3 (0.0-1.0); MONOCYTES % (AUTO) 9 % (0-12); NEUTROPHILS # (AUTO) 4.5 X 10^3 (1.8-7.8); NEUTROPHILS % (AUTO) 66 % (42-75); PLATELET COUNT 390 10^3/uL (130-400); RED BLOOD COUNT 2.89 10^6/uL (4.35-5.85); RED CELL DISTRIBUTION WIDTH 15.1 % (10.0-14.5); WHITE BLOOD COUNT 6.8 10^3/uL (4.3-11.0)
[2018-05-02 07:30] LABS: ALBUMIN 2.7 GM/DL (3.2-4.5); BILIRUBIN,TOTAL 0.3 MG/DL (0.1-1.0); CALCIUM 8.6 MG/DL (8.5-10.1); CREATININE SERUM 2.97 MG/DL (0.60-1.30); POTASSIUM 4.6 MMOL/L (3.6-5.0); TOTAL PROTEIN 6.6 GM/DL (6.4-8.2)
--- NOTE | 2018-05-02 07:52 | PM & R (SOAP) Progress Note ---
Subjective This was a face to face visit with the patient. Date Seen by Provider: May 02, 2018 Time Seen by Provider: 07:30 Subjective/Events-last exam Patient was seen in her room this AM Patient SBA for transfers Objective Physician Exam Last Set of Vital Signs Vital Signs Date Time Temp Pulse Resp B/P (MAP) Pulse Ox O2 Delivery O2 Flow Rate FiO2 05/02/18 06:58 92 Room Air 05/02/18 05:10 98.1 83 18 98/58 (71) Capillary Refill : I&O Intake and Output 05/02/18 00:00 Intake Total 1150 ml Balance 1150 ml Intake Oral 1150 ml # Voids 5 # Bowel Movements 1 General: Alert, Oriented X3, Cooperative, No Acute Distress HEENT: Atraumatic, PERRLA, EOMI, Mucous Memb Moist/[place] Neck: Supple, No JVD Lungs: Other (decreased breath sounds) Heart: Regular Rate Abdomen: Normal Bowel Sounds, Soft, No Tenderness Extremities: No Edema Neuro: Other ( hip flex 3/5 knee flex 4-/5 knee ext 4-/5 dorsiflex 4/5) Psych/Mental Status: Mental Status NL Results Lab Data Laboratory Tests 04/29/18 12:25: Glucometer 303H 04/29/18 15:41: Glucometer 205H 04/29/18 21:09: Glucometer 299H 04/30/18 06:10: Glucometer 134H 04/30/18 11:26: Glucometer 273H 04/30/18 14:59: Glucometer 269H 04/30/18 21:16: Glucometer 197H 05/01/18 05:40: Glucometer 122H 05/01/18 05:51: White Blood Count 6.7, Red Blood Count 2.82L, Hemoglobin 8.0L, Hematocrit 26L, Mean Corpuscular Volume 90, Mean Corpuscular Hemoglobin 28, Mean Corpuscular Hemoglobin Concent 31L, Red Cell Distribution Width 15.1H, Platelet Count 352, Mean Platelet Volume 9.6, Neutrophils (%) (Auto) 64, Lymphocytes (%) (Auto) 23, Monocytes (%) (Auto) 10, Eosinophils (%) (Auto) 3, Basophils (%) (Auto) 1, Neutrophils # (Auto) 4.3, Lymphocytes # (Auto) 1.5, Monocytes # (Auto) 0.7, Eosinophils # (Auto) 0.2, Basophils # (Auto) 0.0, Sodium Level 133L, Potassium Level 4.8, Chloride Level 101, Carbon Dioxide Level 21, Anion Gap 11, Blood Urea Nitrogen 55H, Creatinine 3.13H, Estimat Glomerular Filtration Rate 14, BUN/ Creatinine Ratio 18, Glucose Level 113H, Calcium Level 8.6, Corrected Calcium 9.6, Total Bilirubin 0.3, Aspartate Amino Transf (AST/SGOT) 11, Alanine Aminotransferase (ALT/SGPT) 9, Alkaline Phosphatase 53, Total Protein 6.5, Albumin 2.7L 05/01/18 10:51: Glucometer 305H 05/01/18 14:44: Glucometer 150H 05/01/18 20:28: Glucometer 264H 05/02/18 05:34: Glucometer 139H 05/02/18 07:00: Sodium Level 133L, Potassium Level 4.6, Chloride Level 102, Carbon Dioxide Level 20L, Anion Gap 11, Blood Urea Nitrogen 54H, Creatinine 2.97H, Estimat Glomerular Filtration Rate 15, BUN/Creatinine Ratio 18, Glucose Level 127H, Calcium Level 8.6, Corrected Calcium 9.6, Total Bilirubin 0.3, Aspartate Amino Transf (AST/SGOT) 11, Alanine Aminotransferase (ALT/SGPT) 10, Alkaline Phosphatase 54, Total Protein 6.6, Albumin 2.7L Assessment/Plan Assessment and Plan 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
--- NOTE | 2018-05-02 07:57 | Progress Note (SOAP) ---
Subjective Time Seen by a Provider: 07:53 Subjective/Events-last exam Patient up this morning. GFR 14.. Patient feel she is doing better. Patient is seen renal specialist when discharged Objective Exam Vital Signs Date Time Temp Pulse Resp B/P (MAP) Pulse Ox O2 Delivery O2 Flow Rate FiO2 05/02/18 06:58 92 Room Air 05/02/18 05:10 98.1 83 18 98/58 (71) 94 Room Air 05/01/18 21:41 Room Air 05/01/18 19:30 91 Room Air 05/01/18 17:16 98.2 85 18 100/58 (72) 94 Room Air 05/01/18 09:30 Room Air 05/01/18 09:03 93 Room Air I & O 05/02/18 07:00 Intake Total 1100 ml Balance 1100 ml Capillary Refill : General Appearance: No Apparent Distress, Thin HEENT: Normal ENT Inspection Neck: Full Range of Motion, Normal Inspection Respiratory: No Accessory Muscle Use, No Respiratory Distress, Decreased Breath Sounds Cardiovascular: Regular Rate, Rhythm, No Murmur Gastrointestinal: non tender, no organomegaly Results Lab Laboratory Tests 05/01/18 10:51: Glucometer 305H 05/01/18 14:44: Glucometer 150H 05/01/18 20:28: Glucometer 264H 05/02/18 05:34: Glucometer 139H 05/02/18 07:00: White Blood Count 6.8, Red Blood Count 2.89L, Hemoglobin 8.1L, Hematocrit 26L, Mean Corpuscular Volume 90, Mean Corpuscular Hemoglobin 28, Mean Corpuscular Hemoglobin Concent 31L, Red Cell Distribution Width 15.1H, Platelet Count 390, Mean Platelet Volume 9.5, Neutrophils (%) (Auto) 66, Lymphocytes (%) (Auto) 22, Monocytes (%) (Auto) 9, Eosinophils (%) (Auto) 2, Basophils (%) (Auto) 0, Neutrophils # (Auto) 4.5, Lymphocytes # (Auto) 1.5, Monocytes # (Auto) 0.6, Eosinophils # (Auto) 0.2, Basophils # (Auto) 0.0, Sodium Level 133L, Potassium Level 4.6, Chloride Level 102, Carbon Dioxide Level 20L, Anion Gap 11, Blood Urea Nitrogen 54H, Creatinine 2.97H, Estimat Glomerular Filtration Rate 15, BUN/ Creatinine Ratio 18, Glucose Level 127H, Calcium Level 8.6, Corrected Calcium 9.6, Total Bilirubin 0.3, Aspartate Amino Transf (AST/SGOT) 11, Alanine Aminotransferase (ALT/SGPT) 10, Alkaline Phosphatase 54, Total Protein 6.6, Albumin 2.7L Assessment/Plan Assessment/Plan Assess & Plan/Chief Complaint Myopathy. Unsteady gait. Congestive heart failure. Renal insufficiency. Diabetes. Coronary artery disease. Noncompliance history. Tobaccoism. . . Myopathy. Unsteady gait. Congestive heart failure better. Renal insufficiency stable. Diabetes. Coronary artery disease. Noncompliance history. Tobaccoism. . 04/25/18. Myopathy. Unsteady gait. Renal insufficiency worse. Diabetes. Coronary artery disease. Tobaccoism. Noncompliance history. Patient having pain in the knees. . 04/26/18. Unsteady gait. Myopathy. Renal insufficiency. Diabetes. Coronary artery disease. Tobaccoism. Patient feels down today. . 04/27/18. Myopathy. Unsteady gait. Lactic pain. Renal insufficiency. Diabetes. Coronary artery disease. Tobaccoism. Patient having back pain today. . 04/28/18. Unsteady gait. Renal insufficiency. Knee pain. Coronary artery disease. Tobaccoism. Patient in bed this morning lethargic. . 04/29/18. Unsteady gait. Renal insufficiency. Knee pain. Coronary artery disease. Tobaccoism. Depression. 05/02/18. Unsteady gait. Renal insufficiency. Knee pain. Tobaccoism. Depression. Put on antidepressant. Patient up this morning. Patient feeling better Clinical Quality Measures DVT/VTE Risk/Contraindication: Risk Factor Score Per Nursin RFS Level Per Nursing on Admit: 4+=Very High MERRICK SIEGEL DO May 02, 2018 07:57
[2018-05-02 08:35] VITALS: BP 101/57
[2018-05-02] MEDS: GABAPENTIN 300 MG (NEURONTIN) CAP PO SCH ×2 (08:51→20:28)
[2018-05-02] MEDS: SENNA W/DOCUSATE (SENOKOT S) TABLET PO SCH ×2 (08:52→20:28)
--- NOTE | 2018-05-02 09:00 | Physical Therapy Daily Note ---
PT Daily Note-Current Subjective Patient in bed pre tx, agrees reluctantly to PT, no complaints of pain. Appearance Patient in bed post tx with nurse call, phone, tray, all needs met, nursing in room. Mental Status Patient Orientation: Person, Place, Situation Transfers Functional [place] Measure 0=Not Assessed/NA 4=Minimal Assistance 1=Total Assistance 5=Supervision or Setup 2=Maximal Assistance 6=Modified [place] 3=Moderate Assistance 7=Complete IndependenceIRFPAI Quality Coding Scale 6 Independent with activity with or without an assistive device 5 Patient requires set up or clean up by helper. Patient completes activity by themselves 4 Supervision or touching assist (CGA). [place] provide cues , steadying assist 3 The helper provides less than half the effort to complete the activity 2 The helper provides more than half the effort to complete the activity 1 Dependent. The helper does all the effort to complete an activity 7 Patient refused to complete or attempt activity 9 The patient did not perform the activity before the current illness or injury 88 Not attempted due to Medical conditions or safety concerns Transfers (B, C, W/C) (FIM): 5 Scootin Rollin Roll Left to Right (QC): 6 Supine to/from Sit: 6 Sit to/from Stand: 5 Sit to Lying (QC): 6 Sit to Stand (QC): 4 Chair/Jzm-bb-Wwacl Xfer(QC): 4 Bed to/from Chair: 5 Car Transfer (QC): 5 Patient performs bed mobility with mod I, transfers with SBA, car transfer SBA. Patient needs cues for positioning and safety. Weight Bearing Right Lower Extremity: Right Weight Bearing/Tolerated Left Lower Extremity: Left Weight Bearing/Tolerated Wheelchair Training Does the Pt Use a Wheelchair?: Yes Wheelchair (FIM): 5 Distance: 150'x2 Wheelchair Level of Assist: 5 Type of Wheelchair: Manual Patient needs cues for direction and obstacles. Exercises Seated Therapy Exercises: Ankle pumps, Hip flexion Seated Reps: 20 LAQ alternating for 5 min NuStep Minutes: 15 NuStep Workload: 4 Treatments bed mobility , car transfer, functional strengthening, wheelchair mobility, patient was toileted once with SBA (she was able to get her pants down and up without assist) Assessment Current Status: Poor Progress Patient refused to ambulate. Standing exercises were attempted in the parallel bars but patient's legs became shaky and she refused to stand any more. Patient states she will have no choice but to ambulate at home. When asked what she is going to do when she gets home because she cannot currently ambulate she says she will just get better. When asked how she will get up the stairs at home she says she can have a ramp put in. Patient is supposed to discharge tomorrow, when asked if she is going to have a ramp put in today she says she doesn't know and has no idea when she is going to discharge. PT Short Term Goals Short Term Goals Time Frame: Apr 27, 2018 Transfers (B,C,W/C) (FIM): 5 Gait (FIM): 1 Gait Distance Comment: 30' Gait Level of Assist: 4 Gait Assistive Device: FWW Wheelchair Distance: 150'x2 PT Nursing Home Goals Medicaid Eligibility Specialist Goals PT Medicaid Eligibility Specialist Goals Time Frame: May 11, 2018 Transfers (B,C,W/C) (FIM): 6 Sit to Lying (QC): 6 (met) Lying-Sitting on Side/Bed(QC): 6 (met) Sit to Stand (QC): 6 Rollin (met) Roll Left to Right (QC): 6 (met) Chair/Nnr-wq-Qettw Xfer(QC): 6 Car Transfer (QC): 6 Gait (FIM): 2 Distance: 50' Walk 10 feet (QC): 4 Walk 10ft-Uneven Surface(QC): 4 Walk 50ft with 2 Turns (QC): 4 Gait Level of Assist: 5 Gait Assistive Device: FWW Stairs (FIM): 2 # of Steps: 4 1 Step (curb) (QC): 4 4 Steps (QC): 4 Stairs Level Of Assist: 4 PT Plan Problem List Problem List: Activity Tolerance, Functional Strength, Safety, Balance, Gait, Transfer, Bed Mobility, ROM Treatment/Plan Treatment Plan: Continue Plan of Care Treatment Plan: Bed Mobility, Concurrent Therapy, Education, Functional Activity Karen, Functional Strength, Group Therapy, Gait, Safety, Therapeutic Exercise, Transfers Treatment Duration: May 11, 2018 Frequency: At least 5 of 7 days/Wk (IRF) Estimated Hrs Per Day: 1.5 hours per day Patient and/or Family Agrees t: Yes Safety Risks/Education Patient Education: Transfer Techniques, Correct Positioning, W/C Management, Safety Issues Teaching Recipient: Patient Teaching Methods: Demonstration, Discussion Response to Teaching: Reinforcement Needed Time/GCodes Time In: 0800 Time Out: 0900 Total Billed Treatment Time: 60 Total Billed Treatment 1 visit [facility] 20' FA 10' EX 30' DONTE CHAO PT May 02, 2018 08:59
--- NOTE | 2018-05-02 13:06 | Occupational Ther Daily Note ---
OT Current Status-Daily Note Subjective Pt sleeping in bed. Pt opened eyes, but did not respond, when name spoken. Pt agrees to therapy. Pt c/o back pain, reported to nrsg. Mental Status/Objective Patient Orientation: Person, Place, Time, Situation Functional [place] Measure 0=Not Assessed/NA 4=Minimal Assistance 1=Total Assistance 5=Supervision or Setup 2=Maximal Assistance 6=Modified [place] 3=Moderate Assistance 7=Complete [place] ADL-Treatment Functional [place] Measure 0=Not Assessed/NA 4=Minimal Assistance 1=Total Assistance 5=Supervision or Setup 2=Maximal Assistance 6=Modified [place] 3=Moderate Assistance 7=Complete IndependenceIRFPAI Quality Coding Scale 6 Independent with activity with or without an assistive device 5 Patient requires set up or clean up by helper. Patient completes activity by themselves 4 Supervision or touching assist (CGA). [place] provide cues , steadying assist 3 The helper provides less than half the effort to complete the activity 2 The helper provides more than half the effort to complete the activity 1 Dependent. The helper does all the effort to complete an activity 7 Patient refused to complete or attempt activity 9 The patient did not perform the activity before the current illness or injury 88 Not attempted due to Medical conditions or safety concerns Eating (FIM): 6 (Opens containers/packages by self then uses regular utensils to eat with. Dentures.) Eating (QC): 6 Grooming (FIM): 6 (At w/c level, pt able to complete grooming.) Oral Hygiene (QC): 6 Bathing (FIM): 6 (Safety concerns. Using grabbars, hand held shower and shower bench pt is able to complete by self.) Bathing Location: L Arm, R Arm, L Upper Leg, R Upper Leg, L Lower Leg ( including foot), R Lower Leg (including foot), Chest, Abdomen, Buttocks, Perineal Area Shower/Bathe Self (QC): 6 Upper Body (FIM): 6 (At w/c level, pt retrieves clothing then dresses self.) Upper Body Dressing (QC): 6 Lower Body Dressing (FIM): 5 (At w/c level, pt retrieves clothing then dresses self. Supervision in standing to hike pants over hips due to spontaneous knee buckling, safety concerns.) Lower Body Dressing (QC): 4 On/Off Footwear (QC): 6 Toileting (FIM): 5 (Supervision in standing due to spontaneous knee buckling. Pt able to complete.) Toileting Hygiene (QC): 4 Transfers (B, C, W/C) (FIM): 6 (Safety concerns. Pt uses hand holds and SPT to transfer from surface to surface.) Toilet/Commode Transfer (FIM): 6 (Using grabbars and w/c, pt able to complete. Safety concerns.) Toilet Transfer (QC): 6 Shower Transfer(FIM): 6 (Using shower bench, grabbars and w/c complete SPT to and from shower bench and w/c. Safety concerns.) Pt is able to complete ADLs at w/c level. Knees continue to buckle with standing, shake with exertion from propelling w/c. Pt has demonstrated some difficulty with problem solving and will ask what to do next. Pt inconsistent with locking brakes on w/c for transfers or when dressing. Other Treatment Pt maneuvered w/c throughout hospital, through doors, around obstacles, over variety of surfaces and slight inclines/declines. Pt propelled w/c with UE and LE's. Using LE's more often than UE's. Pt's LE become shaky with exertion. Pt would ask to go back to bed or talk about going to bed and covering up her head. COLE encouraged pt to stay up. DOUGLAS set up 300 piece puzzle at table in [facility]. Pt took time to focus on task then was able to process task. Pt was able to manipulate puzzle pieces and find matches then associate where pieces went with picture on box. Pt tolerated reaching and placing pieces in designated areas, minimal c/o pain in back from sitting up. After therapy, pt lying in bed with call light/phone in reach. All needs met in room. OT Short Term Goals Short Term Goals Time Frame: May 04, 2018 Eating(FIM): 5 Grooming(FIM): 5 Bathing(FIM): 4 Upper Body Dressing(FIM): 5 Lower Body Dressing(FIM): 4 Toileting(FIM): 4 Transfers (B,C,W/C) (FIM): 5 Toilet/Commode Transfer(FIM): 5 Shower Transfer(FIM): 4 Additional Short Term Goals: 1-Demonstrate ADL Tasks, 2-Verbalize Understanding , 3-ImproveStrength/Karen 1=Demonstrate adherence to instructed precautions during ADL tasks. 2=Patient will verbalize/demonstrate understanding of assistive devices/ modifications for ADL. 3=Patient will improve strength/tolerance for activity to enable patient to perform ADL's. OT Account Auditor Goals Account Auditor Goals Time Frame: May 11, 2018 Eating (FIM): 6 (met) Eating (QC): 6 (met) Groomin (met) Oral Hygiene (QC): 6 (mt) Bathing(FIM): 5 (met) Shower/Bathe Self (QC): 5 (met) Upper Body Dressing(FIM): 6 (met) Upper Body Dressing (QC): 6 (met) Lower Body Dressing(FIM): 6 (not et) Lower Body Dressing (QC): 6 (not met) On/Off Footwear (QC): 6 (met) Toileting(FIM): 6 (not met) Toileting Hygiene (QC): 6 (not met) Transfers (B,C,W/C) (FIM): 6 Toilet/Commode Transfer(FIM): 6 (met) Toilet/Commode Transfer (QC): 6 (met) Shower Transfer(FIM): 5 (met) Additional Goals: 1-Demonstrate ADL Tasks, 2-Verbalize Understanding, 3- ImproveStrength/Karen 1=Demonstrate adherence to instructed precautions during ADL tasks. 2=Patient will verbalize/demonstrate understanding of assistive devices/ modifications for ADL. 3=Patient will improve strength/tolerance for activity to enable patient to perform ADL's. OT Education/Plan Discharge Recommendations Plan/Recommendations: Continue POC Treatment Plan/Plan of Care Patient would benefit from OT for education, treatment and training to promote independence in ADL's, mobility, safety and/or upper extremity function for ADL' s. Plan of Care: ADL Retraining, Functional Mobility, Group Exercise/Act as Ind, UE Funct Exercise/Act Treatment Duration: May 11, 2018 Frequency: At least 5 of 7 days/Wk (IRF) Estimated Hrs Per Day: 1.5 hours per day Agreement: Yes Rehab Potential: Guarded Time/GCodes Start Time: 10:00 Stop Time: 12:00 Total Time Billed (hr/min): 120 Billed Treatment Time 1 visit-ADL 5 (70 min) EX 3 (50 min) NIKKI ROGERS May 02, 2018 13:06
[2018-05-02] MEDS ORDERED: ACHD5005 PO (14:44)
[2018-05-02] MEDS ORDERED: PANT40TA3 PO (14:44)
[2018-05-02] MEDS ORDERED: SUCR1TAB PO (14:44)
[2018-05-02] MEDS ORDERED: SERT50TA9 PO (14:44)
--- NOTE | 2018-05-02 15:04 | Physical Therapy Daily Note ---
PT Daily Note-Current Subjective Agrees to try to get up and walk. Reports she doesnt think she will be able to walk. Reports she will be able to walk when she gets home and reports she will hold onto the furniture and moore. In one breath says a wc will not work in her home and late she says it will. Transfers Functional [place] Measure 0=Not Assessed/NA 4=Minimal Assistance 1=Total Assistance 5=Supervision or Setup 2=Maximal Assistance 6=Modified [place] 3=Moderate Assistance 7=Complete IndependenceIRFPAI Quality Coding Scale 6 Independent with activity with or without an assistive device 5 Patient requires set up or clean up by helper. Patient completes activity by themselves 4 Supervision or touching assist (CGA). [place] provide cues , steadying assist 3 The helper provides less than half the effort to complete the activity 2 The helper provides more than half the effort to complete the activity 1 Dependent. The helper does all the effort to complete an activity 7 Patient refused to complete or attempt activity 9 The patient did not perform the activity before the current illness or injury 88 Not attempted due to Medical conditions or safety concerns Weight Bearing Right Lower Extremity: Right Weight Bearing/Tolerated Left Lower Extremity: Left Weight Bearing/Tolerated Gait Training Gait (FIM): 2 Distance: only steps forward and back. Gait Assistive Device: FWW Treatments Pt is able to get in and out of bed indep. She is able to stand up with SBA. She attempted to take steps but due to dyskinesia like symptoms, unable to safely take steps. Pt performed SPT x 2 bed to/from wc with SBA. Pt in bed post treatment with needs met. Assessment Functional mobility limited at an ambulatory level. She is able to mobilize in a wheelchair. Unsafe to ambulate at this time. PT Short Term Goals Short Term Goals Time Frame: Apr 27, 2018 Transfers (B,C,W/C) (FIM): 5 Gait (FIM): 1 Gait Distance Comment: 30' Gait Level of Assist: 4 Gait Assistive Device: FWW Wheelchair Distance: 150'x2 PT Test Engineering Manager Goals Half-Way Goals PT Half-Way Goals Time Frame: May 11, 2018 Transfers (B,C,W/C) (FIM): 6 Sit to Lying (QC): 6 (met) Lying-Sitting on Side/Bed(QC): 6 (met) Sit to Stand (QC): 6 Rollin (met) Roll Left to Right (QC): 6 (met) Chair/Qnx-ga-Jmcvp Xfer(QC): 6 Car Transfer (QC): 6 Gait (FIM): 2 Distance: 50' Walk 10 feet (QC): 4 Walk 10ft-Uneven Surface(QC): 4 Walk 50ft with 2 Turns (QC): 4 Gait Level of Assist: 5 Gait Assistive Device: FWW Stairs (FIM): 2 # of Steps: 4 1 Step (curb) (QC): 4 4 Steps (QC): 4 Stairs Level Of Assist: 4 PT Plan Problem List Problem List: Activity Tolerance, Functional Strength, Safety Treatment/Plan Treatment Plan: Continue Plan of Care Treatment Plan: Bed Mobility, Concurrent Therapy, Education, Functional Activity Karen, Functional Strength, Group Therapy, Gait, Safety, Therapeutic Exercise, Transfers Treatment Duration: May 11, 2018 Frequency: At least 5 of 7 days/Wk (IRF) Estimated Hrs Per Day: 1.5 hours per day Patient and/or Family Agrees t: Yes Safety Risks/Education Patient Education: Safety Issues Teaching Recipient: Patient Teaching Methods: Discussion Response to Teaching: Reinforcement Needed Time/GCodes Time In: 1405 Time Out: 1420 Total Billed Treatment Time: 15 Total Billed Treatment visit FA 15 NIKKI CHURCHILL PT May 02, 2018 15:04
[2018-05-02 17:18] VITALS: BP 94/55
[2018-05-02] MEDS: SERTRALINE 50 MG (ZOLOFT) TABLET PO SCH (20:28)
[2018-05-02] MEDS: MELATONIN 3 MG TABLET PO SCH (20:28)
[2018-05-02] MEDS: ASPIRIN E.C. 81 MG (ECOTRIN) TAB PO SCH (20:28)
[2018-05-02] MEDS: CLOPIDOGREL 75 MG (PLAVIX) TABLET PO SCH (20:28)
[2018-05-02] MEDS: ATORVASTATIN 80 MG (LIPITOR) TABLET PO SCH (20:29)
[2018-05-03 04:05] VITALS: BP 104/51
[2018-05-03] MEDS: inSUlin ASPART (NovoLOG) 1 UNIT/0.01 ML (CHARGE PER UNIT) SC SCH (05:52)
[2018-05-03] MEDS: PANTOPRAZOLE 40 MG (PROTONIX) TAB PO SCH (06:07)
[2018-05-03] MEDS: SUCRALFATE 1 GM (CARAFATE) TAB PO SCH ×2 (06:07→11:24)
[2018-05-03] MEDS: HYDROcodone/APAP 5 MG/325 MG (LORTAB) TAB PO PRN (06:12)
[2018-05-03] MEDS: RT-ALBUTEROL/IPRATROPIUM 3 ML (DUONEB) VIAL INH SCH (06:45)
--- NOTE | 2018-05-03 07:51 | Progress Note (SOAP) ---
Subjective Time Seen by a Provider: 07:48 Subjective/Events-last exam Patient to be discharged today to [facility] [place] [facility]. Patient voices no complaints today Objective Exam Vital Signs Date Time Temp Pulse Resp B/P (MAP) Pulse Ox O2 Delivery O2 Flow Rate FiO2 05/03/18 06:55 93 Room Air 05/03/18 04:05 98.6 86 16 104/51 (68) 98 Room Air 05/02/18 21:00 Room Air 05/02/18 19:58 94 Room Air 05/02/18 17:18 98.6 86 20 94/55 (68) 98 Room Air 05/02/18 08:45 Room Air 05/02/18 08:35 89 20 101/57 (72) 99 Room Air I & O 05/03/18 07:00 Intake Total 2000 ml Balance 2000 ml Capillary Refill : General Appearance: No Apparent Distress, Thin HEENT: Normal ENT Inspection Neck: Full Range of Motion, Normal Inspection Respiratory: No Accessory Muscle Use, No Respiratory Distress Cardiovascular: Regular Rate, Rhythm, No Murmur Gastrointestinal: non tender, soft Results Lab Laboratory Tests 05/02/18 12:15: Glucometer 233H 05/02/18 15:22: Glucometer 273H 05/02/18 21:03: Glucometer 230H 05/03/18 05:43: Glucometer 121H Assessment/Plan Assessment/Plan Assess & Plan/Chief Complaint Myopathy. Unsteady gait. Congestive heart failure. Renal insufficiency. Diabetes. Coronary artery disease. Noncompliance history. Tobaccoism. . . Myopathy. Unsteady gait. Congestive heart failure better. Renal insufficiency stable. Diabetes. Coronary artery disease. Noncompliance history. Tobaccoism. . 04/25/18. Myopathy. Unsteady gait. Renal insufficiency worse. Diabetes. Coronary artery disease. Tobaccoism. Noncompliance history. Patient having pain in the knees. . 04/26/18. Unsteady gait. Myopathy. Renal insufficiency. Diabetes. Coronary artery disease. Tobaccoism. Patient feels down today. . 04/27/18. Myopathy. Unsteady gait. Lactic pain. Renal insufficiency. Diabetes. Coronary artery disease. Tobaccoism. Patient having back pain today. . 04/28/18. Unsteady gait. Renal insufficiency. Knee pain. Coronary artery disease. Tobaccoism. Patient in bed this morning lethargic. . 04/29/18. Unsteady gait. Renal insufficiency. Knee pain. Coronary artery disease. Tobaccoism. Depression. 05/02/18. Unsteady gait. Renal insufficiency. Knee pain. Tobaccoism. Depression. Put on antidepressant. Patient up this morning. Patient feeling better. 05/03/18. Unsteady gait. Renal insufficiency. Knee pain. Tobaccoism. Depression. Diabetes. Patient to be discharged today to [facility] [place] [facility] Clinical Quality Measures DVT/VTE Risk/Contraindication: Risk Factor Score Per Nursin RFS Level Per Nursing on Admit: 4+=Very High MERRICK SIEGEL DO May 03, 2018 07:51
[2018-05-03 08:30] VITALS: BP 112/65
[2018-05-03] MEDS: SENNA W/DOCUSATE (SENOKOT S) TABLET PO SCH (08:32)
[2018-05-03] MEDS: GABAPENTIN 300 MG (NEURONTIN) CAP PO SCH (08:32)
[2018-05-03] MEDS ORDERED: INSU100V16 SC (08:57)
--- NOTE | 2018-05-03 10:07 | Therapy Team Discharge Summary ---
Therapy Discharge Summary Discharge Recommendations Date of Discharge Therapy D/C Recommendations: 24 hr Supervision Physical Therapy Patient came to rehab with UTI and hyponatremia. Upon evaluation patient performed bed mobility and supine <-> sit with SBA, CGA for sit to stand and transfers, ambulated 10' with a rolling walker with CGA, no stairs at that time. Patient has been performing bed mobility and transfer training, balance and endurance training, functional strengthening, and education. Patient has made poor progress and has only met her bed mobility skilled nursing goals. Now, patient performs bed mobility with mod I, transfers with SBA, car transfer SBA, and can propel a manual wheelchair 150' with SBA. She is not able to perform stairs. She refused to work on ambulation because of weakness and knee buckling. Patient is discharging from this facility today and will be discharged from PT at this time. Occupational Therapy Decreased Activ Tolerance, Impaired I ADL's, Impaired Self-Care Skills PT Mcfp Goals Mcfp Goals PT Manager [employer] Goals Time Frame: May 11, 2018 Transfers (B,C,W/C) (FIM): 6 Roll Left to Right (QC): 6 (met) Sit to Lying (QC): 6 (met) Lying-Sitting on Side/Bed(QC): 6 (met) Sit to Stand (QC): 6 Chair/Swr-ik-Oehsd Xfer(QC): 6 Car Transfer (QC): 6 Gait (FIM): 2 Distance: 50' Walk 10 feet (QC): 4 Walk 10ft-Uneven Surface(QC): 4 Walk 50ft with 2 Turns (QC): 4 Gait Level of Assist: 5 Gait Assistive Device: FWW Stairs (FIM): 2 # of Steps: 4 1 Step (curb) (QC): 4 4 Steps (QC): 4 Stairs Level Of Assist: 4 OT Mcfp Goals Manager [employer] Goals Time Frame: May 11, 2018 Eating (FIM): 6 (met) Eating (QC): 6 (met) Oral Hygiene (QC): 6 (mt) Grooming(FIM): 6 (met) Bathing(FIM): 5 (met) Shower/Bathe Self (QC): 5 (met) Upper Body Dressing(FIM): 6 (met) Upper Body Dressing (QC): 6 (met) Lower Body Dressing(FIM): 6 (not et) Lower Body Dressing (QC): 6 (not met) On/Off Footwear (QC): 6 (met) Toileting(FIM): 6 (not met) Toileting Hygiene (QC): 6 (not met) Transfers (B,C,W/C) (FIM): 6 Toilet/Commode Transfer(FIM): 6 (met) Toilet/Commode Transfer (QC): 6 (met) Shower Transfer(FIM): 5 (met) Additional Goals: 1-Demonstrate ADL Tasks, 2-Verbalize Understanding, 3- ImproveStrength/Karen 1=Demonstrate adherence to instructed precautions during ADL tasks. 2=Patient will verbalize/demonstrate understanding of assistive devices/ modifications for ADL. 3=Patient will improve strength/tolerance for activity to enable patient to perform ADL's. DONTE CHAO PT May 03, 2018 10:06
[2018-05-03] MEDS ORDERED: inSUlin ASPART (NovoLOG) 1 UNIT/0.01 ML (CHARGE PER UNIT) SC SCH (11:00)
[2018-05-03 13:00] VITALS: BP 111/61
[2018-05-03 13:19] VITALS: BP 111/61
--- NOTE | 2018-05-03 20:24 | PM & R (SOAP) Progress Note ---
Subjective This was a face to face visit with the patient. Date Seen by Provider: May 03, 2018 Time Seen by Provider: 10:00 Subjective/Events-last exam Patient was discharged to local SNU today for ongoing care and therapies Accucheks noted Appreciate DR barriga note Date Identified: May 03, 2018 Time Identified: 10:00 Medication Intervention: Discharge/transfer meds reviewed Objective Physician Exam Last Set of Vital Signs Vital Signs Date Time Temp Pulse Resp B/P (MAP) Pulse Ox O2 Delivery O2 Flow Rate FiO2 05/03/18 13:19 86 18 111/61 96 Room Air 05/03/18 13:00 97.6 Capillary Refill : I&O Intake and Output 05/03/18 00:00 Intake Total 1200 ml Balance 1200 ml Intake Oral 1200 ml # Voids 6 General: Alert, Oriented X3, Cooperative, No Acute Distress HEENT: Atraumatic, PERRLA, EOMI, Mucous Memb Moist/[place] Neck: Supple, No JVD Lungs: Other (decreased breath sounds) Heart: Regular Rate Abdomen: Normal Bowel Sounds, Soft, No Tenderness Extremities: No Edema Neuro: Other ( hip flex 3/5 knee flex 4-/5 knee ext 4-/5 dorsiflex 4/5) Psych/Mental Status: Mental Status NL Results Lab Data Laboratory Tests 04/30/18 21:16: Glucometer 197H 05/01/18 05:40: Glucometer 122H 05/01/18 05:51: White Blood Count 6.7, Red Blood Count 2.82L, Hemoglobin 8.0L, Hematocrit 26L, Mean Corpuscular Volume 90, Mean Corpuscular Hemoglobin 28, Mean Corpuscular Hemoglobin Concent 31L, Red Cell Distribution Width 15.1H, Platelet Count 352, Mean Platelet Volume 9.6, Neutrophils (%) (Auto) 64, Lymphocytes (%) (Auto) 23, Monocytes (%) (Auto) 10, Eosinophils (%) (Auto) 3, Basophils (%) (Auto) 1, Neutrophils # (Auto) 4.3, Lymphocytes # (Auto) 1.5, Monocytes # (Auto) 0.7, Eosinophils # (Auto) 0.2, Basophils # (Auto) 0.0, Sodium Level 133L, Potassium Level 4.8, Chloride Level 101, Carbon Dioxide Level 21, Anion Gap 11, Blood Urea Nitrogen 55H, Creatinine 3.13H, Estimat Glomerular Filtration Rate 14, BUN/ Creatinine Ratio 18, Glucose Level 113H, Calcium Level 8.6, Corrected Calcium 9.6, Total Bilirubin 0.3, Aspartate Amino Transf (AST/SGOT) 11, Alanine Aminotransferase (ALT/SGPT) 9, Alkaline Phosphatase 53, Total Protein 6.5, Albumin 2.7L 05/01/18 10:51: Glucometer 305H 05/01/18 14:44: Glucometer 150H 05/01/18 20:28: Glucometer 264H 05/02/18 05:34: Glucometer 139H 05/02/18 07:00: White Blood Count 6.8, Red Blood Count 2.89L, Hemoglobin 8.1L, Hematocrit 26L, Mean Corpuscular Volume 90, Mean Corpuscular Hemoglobin 28, Mean Corpuscular Hemoglobin Concent 31L, Red Cell Distribution Width 15.1H, Platelet Count 390, Mean Platelet Volume 9.5, Neutrophils (%) (Auto) 66, Lymphocytes (%) (Auto) 22, Monocytes (%) (Auto) 9, Eosinophils (%) (Auto) 2, Basophils (%) (Auto) 0, Neutrophils # (Auto) 4.5, Lymphocytes # (Auto) 1.5, Monocytes # (Auto) 0.6, Eosinophils # (Auto) 0.2, Basophils # (Auto) 0.0, Sodium Level 133L, Potassium Level 4.6, Chloride Level 102, Carbon Dioxide Level 20L, Anion Gap 11, Blood Urea Nitrogen 54H, Creatinine 2.97H, Estimat Glomerular Filtration Rate 15, BUN/ Creatinine Ratio 18, Glucose Level 127H, Calcium Level 8.6, Corrected Calcium 9.6, Total Bilirubin 0.3, Aspartate Amino Transf (AST/SGOT) 11, Alanine Aminotransferase (ALT/SGPT) 10, Alkaline Phosphatase 54, Total Protein 6.6, Albumin 2.7L 05/02/18 12:15: Glucometer 233H 05/02/18 15:22: Glucometer 273H 05/02/18 21:03: Glucometer 230H 05/03/18 05:43: Glucometer 121H 05/03/18 10:52: Glucometer 219H Assessment/Plan Assessment and Plan Discharge to local SNU today F/U with PCP See orders Co-Morbidities that are continuing to impact the rehab process: (include details ) TAWNY GALEANO MD May 03, 2018 20:23
--- NOTE | 2018-05-04 14:29 | Therapy Team Discharge Summary ---
Therapy Discharge Summary Discharge Recommendations Date of Discharge May 03, 2018 at 13:15 Therapy D/C Recommendations: 24 hr Supervision Occupational Therapy Pt. has been seen to increase overall strength and independence. Pt. has met some goals, but continues to require assistance to meet other goals. Pt. has not met goals of toileting or LE dressing. Pt. required cues and encouragement to participate at times and do for self. Pt. is discharging for continued assistance and continued care. Recommend continued occupational therapy for daily ADL needs and skills training. Decreased Activ Tolerance, Decreased UE Strength, Impaired I ADL's, Impaired Self-Care Skills PT Stencil Cutter Machine Goals Mcfp Goals PT Mcfp Goals Time Frame: May 11, 2018 Transfers (B,C,W/C) (FIM): 6 Roll Left to Right (QC): 6 (met) Sit to Lying (QC): 6 (met) Lying-Sitting on Side/Bed(QC): 6 (met) Sit to Stand (QC): 6 Chair/Pyn-gb-Xrfdi Xfer(QC): 6 Car Transfer (QC): 6 Gait (FIM): 2 Distance: 50' Walk 10 feet (QC): 4 Walk 10ft-Uneven Surface(QC): 4 Walk 50ft with 2 Turns (QC): 4 Gait Level of Assist: 5 Gait Assistive Device: FWW Stairs (FIM): 2 # of Steps: 4 1 Step (curb) (QC): 4 4 Steps (QC): 4 Stairs Level Of Assist: 4 OT Stencil Cutter Machine Goals Stencil Cutter Machine Goals Time Frame: May 11, 2018 Eating (FIM): 6 (met) Eating (QC): 6 (met) Oral Hygiene (QC): 6 (mt) Grooming(FIM): 6 (met) Bathing(FIM): 5 (met) Shower/Bathe Self (QC): 5 (met) Upper Body Dressing(FIM): 6 (met) Upper Body Dressing (QC): 6 (met) Lower Body Dressing(FIM): 6 (not et) Lower Body Dressing (QC): 6 (not met) On/Off Footwear (QC): 6 (met) Toileting(FIM): 6 (not met) Toileting Hygiene (QC): 6 (not met) Transfers (B,C,W/C) (FIM): 6 Toilet/Commode Transfer(FIM): 6 (met) Toilet/Commode Transfer (QC): 6 (met) Shower Transfer(FIM): 5 (met) Additional Goals: 1-Demonstrate ADL Tasks, 2-Verbalize Understanding, 3- ImproveStrength/Karen 1=Demonstrate adherence to instructed precautions during ADL tasks. 2=Patient will verbalize/demonstrate understanding of assistive devices/ modifications for ADL. 3=Patient will improve strength/tolerance for activity to enable patient to perform ADL's. MAT WILLIAMSON OT May 04, 2018 14:29
== END 2018-05-03 13:15 | DRG 91 ==
PROVIDERS: ADMIT Physical Medicine & Rehabilitation; ATTEND Physical Medicine & Rehabilitation
DX: G72.89 Other specified myopathies (principal); I13.0 Hypertensive heart and chronic kidney disease with heart failure and stage 1 through stage 4 chronic kidney disease, or unspecified chronic kidney disease; N18.2 Chronic kidney disease, stage 2 (mild); I50.41 Acute combined systolic (congestive) and diastolic (congestive) heart failure; R26.81 Unsteadiness on feet; N17.9 Acute kidney failure, unspecified; I25.810 Atherosclerosis of coronary artery bypass graft(s) without angina pectoris; E87.1 Hypo-osmolality and hyponatremia; E11.42 Type 2 diabetes mellitus with diabetic polyneuropathy; E11.21 Type 2 diabetes mellitus with diabetic nephropathy; J44.9 Chronic obstructive pulmonary disease, unspecified; I25.10 Atherosclerotic heart disease of native coronary artery without angina pectoris; F17.210 Nicotine dependence, cigarettes, uncomplicated; M25.561 Pain in right knee; M25.562 Pain in left knee; F32.9 Major depressive disorder, single episode, unspecified; G47.00 Insomnia, unspecified; I25.2 Old myocardial infarction; Z91.81 History of falling; Z91.19 Patient's noncompliance with other medical treatment and regimen
CPT/HCPCS: 36415; 71046; 80048; 80053; 80299; 82962; 83880; 85025; 85027; 94640; 94760

== ENCOUNTER 2018-05-27 03:23 | Emergency (ER) | payer MEDICARE ==
[~2018-05-27] VITALS: Ht 167.6 cm; Wt 73.8 kg
[~2018-05-27 03:23] MED LIST changes: +ACHD5005 PO; +INSU100V16 SC; +SERT50TA9 PO; +SUCR1TAB PO
[2018-05-27] MEDS ORDERED: OMEP20CA12 (03:34)
[2018-05-27] MEDS ORDERED: FURO40TA4 (03:34)
[2018-05-27] MEDS ORDERED: HYDROcodone/APAP 5 MG/325 MG (LORTAB) TAB PO STA (04:54)
--- NOTE | 2018-05-27 05:06 | ED Fall/Injury ---
General Chief Complaint: Trauma-Non Activation Stated Complaint: FALL Nursing Triage Note: FALL Source: patient Exam Limitations: no limitations History of Present Illness Date Seen by Provider: May 27, 2018 Time Seen by Provider: 03:54 Initial Comments Here with report of fall. She apparently got up around 3 o'clock to go to the kitchen to get a cup of coffee and she states that she just fell backwards. She indicated she lost her balance. When she fell she hit her bottom and then hit her back on her wheelchair that was folded up in the kitchen. Unsure she hit her head or neck. Does have chronic neck pain. Also has chronic back and hip pain. Complains of greatest pain at the tailbone. Last tetanus shot was one year ago. Denies loss of consciousness. She is on blood thinners. Location Injury Occurred: HOME Occurred: just prior to arrival (approximately one hour ago), this morning Severity: moderate Injuries/Pain Location: chest, back, pelvis Context: lost balance Loss of Consciousness: no loss of consciousness Modifying Factors: Worse With Movement; Improves With Rest Associated Symptoms (Fall): Chest Pain ( left posterior); No Confusion, No Headache, No Nausea/Vomiting; Neck Pain (mild chronic); No Shortness of Air; Trouble Walking (chronic) Allergies and Home Medications Allergies Coded Allergies: NKANo Known Allergies (Verified Allergy, Unknown, 04/27/13) Home Medications Aspirin 81 Mg Tablet.dr, 81 MG PO HS, (Reported) Atorvastatin Calcium 80 Mg Tablet, 80 MG PO HS, (Reported) LAST FILLED #60 12-02-17 Clopidogrel Bisulfate 75 Mg Tablet, 75 MG PO HS, (Reported) LAST FILLED #30 12-02-17 Gabapentin 300 Mg Capsule, 300 MG PO BID, (Reported) LAST FILLED #60 01-13-18 Guaifenesin/Dextromethorphan 5 Ml Syrup, 10 ML PO Q4H PRN for COUGH, (Reported) Hydrocodone Bit/Acetaminophen 1 Tab Tab, 1 TAB PO Q4H PRN for PAIN-MILD TO MODERATE Prescribed by: TAWNY GALEANO on 05/02/18 1444 Insulin Aspart 100 Unit/1 Ml Susp, 0 UNIT SC ACHS Prescribed by: GIULIANO LAGUERRE on 05/03/18 0857 Metoprolol Succinate 25 Mg Tab.er.24h, 12.5 MG PO DAILY, (Reported) LAST FILLED #30 02-03-18 TAKES 1/2 (25MG) TABLET Pantoprazole Sodium 40 Mg Tablet.dr, 40 MG PO DAILY@0700 Prescribed by: TAWNY GALEANO on 05/02/18 144 Sertraline HCl 50 Mg Tablet, 25 MG PO HS Prescribed by: TAWNY GALEANO on 05/02/18 144 Sucralfate 1 Gm Tablet, 1 GM PO ACHS Prescribed by: TAWNY GALEANO on 05/02/18 1444 Patient Home Medication List Home Medication List Reviewed: Yes Review of Systems Review of Systems Constitutional: see HPI; No chills, No fever Eyes: No Symptoms Reported Ears, Nose, Mouth, Throat: no symptoms reported Respiratory: No cough, No short of breath Cardiovascular: see HPI, edema; No palpitations Gastrointestinal: No abdominal pain, No nausea, No vomiting Genitourinary: no symptoms reported Musculoskeletal: back pain, joint pain, muscle pain; No muscle weakness; neck pain Skin: change in color, lesions Psychiatric/Neurological: Denies Headache; Weakness (chronic) All Other Systems Reviewed Negative Unless Noted: Yes Past Ixfbbvo-Tacxvh-Hhkzbe Hx Past Med/Social Hx: Reviewed Nursing Past Med/Soc Hx Patient Social History Alcohol Use: Denies Use Recreational Drug Use: No Smoking Status: Former Smoker Type Used: Cigarettes 2nd Hand Smoke Exposure: No Recent Foreign Travel: No Contact w/Someone Who Travel: No Recent Infectious Disease Expo: No Recent Hopitalizations: No Immunizations Up To Date Tetanus Booster (TDap): Unknown PED Vaccines UTD: No Date of Pneumonia Vaccine: Jun 02, 2011 Date of Influenza Vaccine: Apr 02, 2017 Seasonal Allergies Seasonal Allergies: No Past Medical History Surgeries: Yes Appendectomy, Cardiac, CABG, Section, Coronary Stent, Hysterectomy, Oophorectomy, Orthopedic Respiratory: Yes (NO HOME O2, CONTINUES TO SMOKE 1 PPD) COPD Currently Using CPAP: No Cardiac: Yes (MULTIPLE CARDIAC CATHS- MULTIPLE STENTS; CABG) Coronary Artery Disease, Heart Attack, High Cholesterol, Irregular Heartbeat Neurological: Yes Neuropathy, Seizure Disorder, TIA : No Reproductive Disorders: No Female Reproductive Disorders: Denies 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 ) Diabetes, Insulin dep HEENT: Yes Cataract Loss of Vision: Denies Hearing Impairment: Denies Cancer: No Psychosocial: Yes Anxiety, Depression Integumentary: No Blood Disorders: No Adverse Reaction/Blood Tranf: No Family Medical History Reviewed Nursing Family Hx FH: suicide FH: uterine cancer 19 MOTHER FHx: diabetes mellitus 19 MOTHER No Pertinent Family Hx Physical Exam Vital Signs Vital Signs - First Documented 05/27/18 03:27 Temp 98.7 Pulse 90 Resp 18 B/P (MAP) 114/64 (81) Pulse Ox 95 O2 Delivery Room Air Capillary Refill : Less Than 3 Seconds Height, Weight, BMI Height: 5'6.00" Weight: 162lbs. 12.8oz. [id number]; 24.4 BMI Method:Stated General Appearance: WD/WN, no apparent distress HEENT: PERRL/EOMI, pharynx normal Neck: non-tender, full range of motion, supple, normal inspection, other (C collar removed) Cardiovascular: regular rate, rhythm, no murmur Respiratory: lungs clear, normal breath sounds Gastrointestinal: non tender, soft Back: No muscle spasm; vertebral tenderness, other (mild mid thoracic and lumbar tenderness to palpation.) Extremities: pedal edema ( 2+ to above the knees bilateral), other (tender throughout the legs but has chronic edema. No obvious deformity) Neurologic/Psychiatric: alert, oriented x 3 Skin: warm/dry, other (1 x 4 cm abrasion to the mid back) Kitty Coma Score Best Eye Response: (4) Open Spontaneously Best Verbal Response: (5) Oriented Best Motor Response: (6) Obeys Commands Progress/Results/Core Measures Results/Orders My Orders Orders - DEDE LYNCH MD Ct Head/Cervical Spine Wo (05/27/18 03:51) Ct Thoracic/Lumbar Spine Wo (05/27/18 03:51) Ct Pelvis Wo (05/27/18 03:51) Chest 1 View, Ap/Pa Only (05/27/18 03:56) Ct Chest Wo (05/27/18 04:20) Hydrocodone/Apap 5/325 Tablet (Lortab 5 (05/27/18 04:54) Vital Signs/I&O 05/27/18 03:27 Temp 98.7 Pulse 90 Resp 18 B/P (MAP) 114/64 (81) Pulse Ox 95 O2 Delivery Room Air Blood Pressure Mean: 81 Progress Progress Note : Progress Note Seen and evaluated on arrival. CT head and neck and ordered CT thoracic and lumbar spine as well as pelvis without contrast ordered. We will get a chest x- ray. Noted significant pleural effusion on chest x-ray which limits evaluation. CT chest without ordered. Monitor patient. 0450: Hydrocodone 5/ 325 one tab by mouth ordered. Pending CT studies. 0538: CT results reviewed. I did discuss with the patient about the L1 compression fracture that is likely subacute and was noted previously on 03/19/18. Also discussed increased lymph node size peritracheal noted on CT chest. This will need to be followed in the future. I will send a copy of the chart to Dr. Siegel. Patient doing a little better after hydrocodone. We did discuss the need to use walker or other stabilizing devices at home to prevent falls. She states that she would and granddaughter will assist with making that happen as well. Discharged home with return precautions. Patient verbalize understanding instructions and agreement with plan. Diagnostic Imaging Diagonstic Imaging: Xray Plain Films/CT/US/NM/MRI: chest Comments Bilateral pleural effusions unchanged from previous. Diagonstic Imaging: CT Plain Films/CT/US/NM/MRI: pelvis Comments No acute fracture or dislocation. Chronic findings. [facility]ed[facility]: CT Plain Films/CT/US/NM/MRI: head Comments No intracranial hemorrhage or fractures noted. Chronic changes [facility]: CT Plain Films/CT/US/NM/MRI: other Comments Thoracic and lumbar spine CT. No acute thoracic spine fracture, subluxation. Mild degenerative change and extra curvature without significant spinal canal stenosis. CT lumbar spine shows age indeterminate L1 inferior endplate compression fracture that appears larger chronic although this is not certain. Cannot exclude an acute on chronic fracture. Approximately 50 percent height loss and a 4 mm retropulsion and spinal canal contributing to mild spinal canal stenosis. No canal compromise. MRI for further assessment as indicated. Spondylosis without high-grade spinal canal/foraminal narrowing. Mild to moderate spinal canal stenosis is present at L4 and L5 and multilevel mild to moderate foraminal stenosis is noted. Diffuse soft tissue edema. Note that the L1 compression fracture was noted on CT abdomen and pelvis on . Diagonstic Imaging: CT Plain Films/CT/US/NM/MRI: chest Comments Chronic irregularity of the posterior 11th rib bilaterally without acute displaced rib fracture. Demineralization limits bony detail and subtle nondisplaced fracture may not be evident. Diffuse soft tissue edema and right rate of the left pleural effusions without pneumothorax. By basilar and scattered parenchymal groundglass opacities may reflect subsegmental atelectasis , mild edema or some combination. Cardiomegaly, atherosclerosis and prior coronary artery bypass grafting without thoracic aneurysm or significant pericardial effusion. 15 mm right peritracheal lymph node, mildly increased in size from prior Reviewed: Reviewed [place] Study, Reviewed by Me Departure Impression Primary Impression: Closed compression fracture of L1 lumbar vertebral body Additional Impressions: Contusion of coccyx Qualified Codes: S30.0XXA - Contusion of lower back and pelvis, initial encounter Abrasion Frequent falls Disposition: HOME, SELF-CARE Condition: Improved Departure-Patient Inst. Decision time for Depature: 05:41 Referrals: MERRICK SIEGEL DO (PCP/Family) Primary Care Physician Patient Instructions: Contusion (DC), Corneal Abrasion (DC), Vertebral Compression Fracture (DC) Add. Discharge Instructions: All discharge instructions reviewed with patient and/or family. Voiced understanding. Continue home medications as directed. Use walker or other assistive device to help you keep your balance. Falls are very dangerous to you especially since you are on blood thinners and a head injury could be life-threatening or deadly. You do have a compression fracture that seems to be old although could have been aggravated from this fall. You also have a lymph node that is swelling in youir chest that needs to be followed. Discussed this with Dr. Siegel. Return for worse pain, fever, vomiting, weakness, breathing problems or other concerns as needed. Copy Copies To 1: MERRICK SIEGEL TIMOTHY D MD May 27, 2018 05:06
[2018-05-27 05:50] VITALS: BP 125/73
--- NOTE | 2018-05-27 07:06 | Diagnostic Imaging Report ---
INDICATION: Status post fall in wheelchair. Pain all the way down the back and into the hips.. TECHNIQUE: Noncontrast CT imaging of the thoracic and lumbar spine, sagittal and coronal reformatted images.. CORRELATION STUDY: 10/01/2017 FINDINGS: There is diffuse bony demineralization noted throughout the thoracic and lumbar spine. Thoracic spine demonstrates mild rightward curvature to be present. Alignment otherwise anatomic. No acute-appearing thoracic compression deformity. Multilevel degenerative changes are present. No significant high degree osseous narrowing of foramina and/or spinal canal. There is a presence of moderate bilateral pleural effusions. Lumbar spine demonstrates relatively normal alignment. There is a moderate compression deformity involving the inferior L1 endplate. While age indeterminate, does not appear to be acute likely subacute. Approximately 60% height loss is noted. There is approximately 4 mm retropulsion into the spinal canal. The remaining lumbar vertebral body heights overall are maintained. There is multilevel disc space narrowing throughout the lumbar spine. There is mild spinal canal narrowing L1-L2 along with mild to moderate narrowing at L4-L5 level. Otherwise high-degree spinal canal narrowing does not appear to be suggested. Mild to moderate multilevel foraminal stenosis is present. Atherosclerosis and abdominal aortic ectasia is present with diffuse soft tissue edema present. Bilateral adrenal gland thickening suggested. Diverticulosis. Patient appears to be post hysterectomy. IMPRESSION: 1. Negative for acute fracture of the thoracic spine. 2. Compression deformity loss of 60% vertebral body height inferior L1 level. Age indeterminate, however acute or subacute fractures not excluded. MRI would likely be of additional benefit. 3. Scattered areas of degenerative change about the lumbar spine with mild to moderate spinal canal narrowing as well as scattered areas of foraminal narrowing. High degree spinal canal stenosis however does not appear to be suggested. 4. Rather diffuse bony demineralization. A preliminary report was provided by [employer]. Dictated by: Dictated on workstation # [id number]
--- NOTE | 2018-05-27 07:11 | Diagnostic Imaging Report ---
PROCEDURE: CT chest without contrast. TECHNIQUE: Multiple contiguous axial images were obtained through the chest without the use of intravenous contrast. INDICATION: Status post fall onto wheelchair. Pain all the way down the back and into the hips. CORRELATION STUDY: 09/30/2017 FINDINGS: There is presence of a moderate right and slightly smaller left pleural effusions. No appreciable pneumothorax. Lung bonilla demonstrate mild scattered nonspecific ground glass opacities, could reflect subsegmental atelectasis. Mild edema not excluded. No perry lobar consolidation. Heart size enlarged. Coronary calcifications, prior coronary artery bypass is present with prior sternotomy changes. The thoracic aortic contour appearing unremarkable with mild wall calcification. Main pulmonary artery appearing at the upper limits of normal. There is nonspecific mediastinal lymph nodes with right paratracheal lymph node measuring up to 15 mm, increased from prior study. Osseous structures demonstrate symmetrical, chronic irregularity of the posterior 11th rib bilaterally. No acute displaced rib fracture deformity. There is moderate compression from inferior L1 endplate, loss approximately 60% vertebral body height. Bony demineralization does limit assessment. There is diffuse soft tissue edema. IMPRESSION: 1. Moderate bilateral pleural effusions right greater than left. No pneumothorax. 2. Likely chronic irregularity of the posterior 11th ribs bilaterally. No definite evidence for acute displaced fracture. However, bony demineralization does limit assessment. 3. Mildly prominent, perhaps slightly increasing size of right paratracheal lymph node, nonspecific. A preliminary report was provided by [employer]. Dictated by: Dictated on workstation # [id number]
--- NOTE | 2018-05-27 07:13 | Diagnostic Imaging Report ---
PROCEDURE: CT pelvis without contrast. TECHNIQUE: Multiple contiguous axial images were obtained through the pelvis without the use of intravenous contrast. Sagittal and coronal reformations were performed. INDICATION: Status post fall in the wheelchair. Pain. FINDINGS: Rather pronounced diffuse bony demineralization does limit bony detail. A definitive acute displaced fracture is not appear to be suggested. There is irregularity of the left iliac wing as well what appears be a probable old distal sacral fracture. There are degenerative changes throughout the bilateral hips, sacroiliac joint and pubic symphysis. Diffuse soft tissue edema is present. There is presence of diverticulosis. No significant free pelvic fluid collection. Urinary bladder appearing unremarkable. Likely prior hysterectomy. Note made of a gluteal injection granulomata. IMPRESSION: Rather diffuse bony demineralization is present, does limit bony detail. An acute displaced fracture does not appear to be suggested. A preliminary report was provided by [employer]. Dictated by: Dictated on workstation # [id number]
--- NOTE | 2018-05-27 07:20 | Diagnostic Imaging Report ---
PROCEDURE: CT head and CT cervical spine without contrast. TECHNIQUE: Multiple contiguous axial images were obtained through the brain and cervical spine without the use of intravenous contrast. Sagittal and coronal reformations through the cervical spine were then performed. INDICATION: Status post fall into wheelchair, pain. CORRELATION STUDY: CT head 04/19/2018 FINDINGS: CT HEAD: Generalized atrophic changes with prominence of the ventricles and sulci. Scattered areas of decreased attenuation, likely a combination of small vessel ischemic disease and senescent changes. No definite evidence for edema. No midline shift or mass effect. No intracranial hemorrhage. Bony calvarium is demineralized. Biparietal calvarial thinning. No depressed calvarial fracture. Trace sphenoid sinus mucosal thickening. Prior lens surgery. CT CERVICAL SPINE: Trace anterolisthesis C4 on C5. May be slightly increased from prior study. May be positional. Alignment otherwise relatively anatomic and unremarkable. No evidence for traumatic subluxation. No facet dislocation with the facets in normal alignment. Multilevel degenerative changes are present. Disc space narrowing most pronounced C5-C6 and C6-C7 levels. Spinal canal and foraminal stenosis of various degrees is present. Atherosclerotic vascular calcifications is noted. Thyroid gland is enlarged. Lung apices with bilateral pleural effusions. IMPRESSION: CT HEAD: 1. Negative for acute intracranial abnormality. CT CERVICAL SPINE: 1. Negative for acute fracture or traumatic subluxation. Anterior listhesis C4 and C5 and maybe slightly increased from prior study but may be positional or indicative of progressive degenerative disc disease. No evidence for traumatic subluxation. Diffuse multilevel spinal canal and neuroforaminal stenosis of various degrees with diffuse degenerative changes present. A preliminary report was provided by [employer]. Dictated by: Dictated on workstation # [id number]
--- NOTE | 2018-05-27 07:37 | Diagnostic Imaging Report ---
INDICATION: Status post fall in wheelchair.. TECHNIQUE: Single view chest 4:02 AM. CORRELATION STUDY: 04/25/2018 FINDINGS: Bilateral pleural effusions persisting right greater than left. On the left may be slightly decreased in size. Associated atelectasis of the lung bases. Cardiac enlargement with poststernotomy changes. Calcification of the aortic arch. IMPRESSION: 1. Bilateral pleural effusions with bibasilar atelectasis right greater than left. Findings stable to perhaps minimally improved from prior study. Dictated by: Dictated on workstation # [id number]
== END 2018-05-27 05:50 | disposition home or self-care (01) ==
LOC: EDUNIT# 03:23 → ER 03:25
DX: S32.010A Wedge compression fracture of first lumbar vertebra, initial encounter for closed fracture (principal); S30.0XXA Contusion of lower back and pelvis, initial encounter; J44.9 Chronic obstructive pulmonary disease, unspecified; I25.10 Atherosclerotic heart disease of native coronary artery without angina pectoris; I25.2 Old myocardial infarction; E78.00 Pure hypercholesterolemia, unspecified; G40.909 Epilepsy, unspecified, not intractable, without status epilepticus; E11.40 Type 2 diabetes mellitus with diabetic neuropathy, unspecified; K21.9 Gastro-esophageal reflux disease without esophagitis; R40.2142 Coma scale, eyes open, spontaneous, at arrival to emergency department; R40.2252 Coma scale, best verbal response, oriented, at arrival to emergency department; R40.2362 Coma scale, best motor response, obeys commands, at arrival to emergency department; M81.0 Age-related osteoporosis without current pathological fracture; F41.9 Anxiety disorder, unspecified; F32.9 Major depressive disorder, single episode, unspecified; F17.210 Nicotine dependence, cigarettes, uncomplicated; Z95.9 Presence of cardiac and vascular implant and graft, unspecified; Z85.42 Personal history of malignant neoplasm of other parts of uterus; Z79.82 Long term (current) use of aspirin; Z87.19 Personal history of other diseases of the digestive system; Z86.73 Personal history of transient ischemic attack (TIA), and cerebral infarction without residual deficits; Z91.81 History of falling; Z87.891 Personal history of nicotine dependence; Z90.49 Acquired absence of other specified parts of digestive tract; Z95.1 Presence of aortocoronary bypass graft; Z98.890 Other specified postprocedural states; Z95.5 Presence of coronary angioplasty implant and graft; Z90.710 Acquired absence of both cervix and uterus; Z79.02 Long term (current) use of antithrombotics/antiplatelets; Z79.4 Long term (current) use of insulin; V00.811A Fall from moving wheelchair (powered), initial encounter; W22.09XA Striking against other stationary object, initial encounter; Y92.000 Kitchen of unspecified non-institutional (private) residence as the place of occurrence of the external cause
CPT/HCPCS: 70450; 71045; 71250; 72125; 72128; 72131; 72192

== ENCOUNTER 2018-06-04 15:42 | Emergency (ER) | payer MEDICARE ==
[~2018-06-04] VITALS: Ht 152.4 cm; Wt 55.3 kg
[~2018-06-04 15:42] MED LIST changes: +FURO40TA4; +OMEP20CA12
--- NOTE | 2018-06-04 16:11 | ED Fall/Injury ---
General Chief Complaint: Trauma-Non Activation Stated Complaint: FALL Source: patient, EMS History of Present Illness Date Seen by Provider: Jun 04, 2018 Time Seen by Provider: 16:10 Initial Comments Patient is a 77 year old female who was brought into the emergency room by [facility] for reports of a fall while ambulating to the restroom. She reports becoming tripped up over her feet and falling onto her back side. She reports low back pain denies hitting her head or LOC. EMS reports blood glucose of 115. C-collar was in place per EMS protocol and was cleared of c-spin precautions on arrival to the ED. EMS reports that she has been taking her husbands tramadol but she does this from time to time for chronic pain. Occurred: just prior to arrival Injuries/Pain Location: back Context: tripped Loss of Consciousness: no loss of consciousness Associated Symptoms (Fall): Denies Symptoms Allergies and Home Medications Allergies Coded Allergies: NKANo Known Allergies (Verified Allergy, Unknown, 04/27/13) Home Medications Aspirin 81 Mg Tablet.dr, 81 MG PO HS, (Reported) Atorvastatin Calcium 80 Mg Tablet, 80 MG PO HS, (Reported) LAST FILLED #60 12-02-17 Clopidogrel Bisulfate 75 Mg Tablet, 75 MG PO HS, (Reported) LAST FILLED #30 12-02-17 Gabapentin 300 Mg Capsule, 300 MG PO BID, (Reported) LAST FILLED #60 18 Guaifenesin/Dextromethorphan 5 Ml Syrup, 10 ML PO Q4H PRN for COUGH, (Reported) Hydrocodone Bit/Acetaminophen 1 Tab Tab, 1 TAB PO Q4H PRN for PAIN-MILD TO MODERATE Prescribed by: TWANY GALEANO on 05/02/18 144 Insulin Aspart 100 Unit/1 Ml Susp, 0 UNIT SC ACHS Prescribed by: GIULIANO LAGUERRE on 05/03/18 0857 Metoprolol Succinate 25 Mg Tab.er.24h, 12.5 MG PO DAILY, (Reported) LAST FILLED #30 02-03-18 TAKES 1/2 (25MG) TABLET Pantoprazole Sodium 40 Mg Tablet.dr, 40 MG PO DAILY@0700 Prescribed by: TAWNY GALEANO on 05/02/18 144 Sertraline HCl 50 Mg Tablet, 25 MG PO HS Prescribed by: TAWNY GALEANO on 05/02/18 144 Sucralfate 1 Gm Tablet, 1 GM PO ACHS Prescribed by: TAWNY GALEANO on 05/02/18 2722 Patient Home Medication List Home Medication List Reviewed: Yes Review of Systems Review of Systems Constitutional: no symptoms reported, see HPI Musculoskeletal: see HPI, back pain (low back pain) All Other Systems Reviewed Negative Unless Noted: Yes Past Prcvmdm-Shjhlx-Trsonm Hx Past Med/Social Hx: Reviewed Nursing Past Med/Soc Hx Patient Social History Type Used: Cigarettes 2nd Hand Smoke Exposure: No Recent Foreign Travel: No Contact w/Someone Who Travel: No Recent Hopitalizations: No Immunizations Up To Date Tetanus Booster (TDap): Unknown PED Vaccines UTD: No Date of Pneumonia Vaccine: Jun 02, 2011 Date of Influenza Vaccine: Apr 02, 2017 Seasonal Allergies Seasonal Allergies: No Past Medical History Surgeries: Yes Appendectomy, Cardiac, CABG, Section, Coronary Stent, Hysterectomy, Oophorectomy, Orthopedic Respiratory: Yes (NO HOME O2, CONTINUES TO SMOKE 1 PPD) COPD Currently Using CPAP: No Cardiac: Yes (MULTIPLE CARDIAC CATHS- MULTIPLE STENTS; CABG) Coronary Artery Disease, Heart Attack, High Cholesterol, Irregular Heartbeat Neurological: Yes Neuropathy, Seizure Disorder, TIA Reproductive Disorders: No Female Reproductive Disorders: Denies 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 ) Diabetes, Insulin dep HEENT: Yes Cataract Loss of Vision: Denies Hearing Impairment: Denies Cancer: No Psychosocial: Yes Anxiety, Depression Integumentary: No Blood Disorders: No Adverse Reaction/Blood Tranf: No Family Medical History Reviewed Nursing Family Hx FH: suicide FH: uterine cancer 19 MOTHER FHx: diabetes mellitus 19 MOTHER No Pertinent Family Hx Physical Exam Vital Signs Vital Signs - First Documented 06/04/18 15:42 Temp 98.0 Pulse 88 Resp 16 B/P (MAP) 118/73 (88) Pulse Ox 98 O2 Delivery Room Air Capillary Refill : Height, Weight, BMI Height: 5'6.00" Weight: 162lbs. 12.8oz. 73.883778tu; 24.4 BMI Method:Stated General Appearance: WD/WN, no apparent distress HEENT: PERRL/EOMI, normal ENT inspection Neck: non-tender, full range of motion, supple, normal inspection Cardiovascular: normal peripheral pulses, regular rate, rhythm, no edema, no gallop, no JVD, no murmur Respiratory: chest non-tender, lungs clear, normal breath sounds, no respiratory distress, no accessory muscle use Gastrointestinal: normal bowel sounds, non tender Back: normal inspection, no CVA tenderness, vertebral tenderness Extremities: normal range of motion, non-tender, normal inspection, no pedal edema, no calf tenderness, normal capillary refill, pelvis stable Neurologic/Psychiatric: alert, normal mood/affect, oriented x 3 Skin: normal color, warm/dry [place] Coma Score Best Eye Response: (4) Open Spontaneously Best Verbal Response: (5) Oriented Best Motor Response: (6) Obeys Commands Progress/Results/Core Measures Results/Orders My Orders Orders - MELISSA ORTEGA Ct Lumbar Spine Wo (06/04/18 16:09) Vital Signs/I&O 06/04/18 06/04/18 15:42 17:50 Temp 98.0 Pulse 88 76 Resp 16 16 B/P (MAP) 118/73 (88) 102/76 (85) Pulse Ox 98 97 O2 Delivery Room Air Room Air Progress Progress Note : Time: 17:07 Progress Note The patient was able to ambulate with minimal pain and the use of a walker. She and family agrees with plans for discharge. Return precautions were given. Diagnostic Imaging Diagonstic Imaging: CT Plain Films/CT/US/NM/MRI: other (lumbar spine) Comments VIA [place], [place] NAME: DEBORA GARCIA [facility] REC#: [id number] PT STATUS: REG ER : 1940 PHYSICIAN: MELISSA ORTEGA ADMIT DATE: 06/04/18/ER Draft Date of Exam:06/04/18 CT LUMBAR SPINE WO PROCEDURE: CT lumbar spine without contrast. TECHNIQUE: Multiple contiguous axial images were obtained through the lumbar spine without the use of intravenous contrast. Sagittal and coronal reformations were then performed. INDICATION: Fall with tailbone pain. Comparison is made with prior spine CT from 05/27/2018. FINDINGS: Volume loss and slight retropulsion of L1 vertebral body appears similar to a recent CT one week ago. This again remains indeterminate between subacute or versus chronic fracture. Remaining lumbar vertebrae show normal stature. Paraspinous tissues demonstrate some apparent effusions in both lung bases. Paraspinous tissues are unremarkable apart from densely calcified aorta and iliac vessels. The majority of the sacrum was not included on this study. Coccyx was not included. IMPRESSION: 1. Age-indeterminate fracture of the L1 vertebral body. No new abnormality is detected. 2. Bilateral pleural effusions with bibasilar infiltrates or atelectasis. Dictated on workstation # [id number] Dict: 06/04/18 1641 Trans: 06/04/18 1654 [id number] Interpreted by: DAVID MACK MD Electronically signed by: Reviewed: Reviewed by Me Departure Impression Primary Impression: Compression fracture of L1 lumbar vertebra with routine healing Disposition: 01 HOME, SELF-CARE Condition: Stable/Unchanged Departure-Patient Inst. Decision time for Depature: 17:09 Referrals: MERRICK SIEGEL DO (PCP/Family) Primary Care Physician Patient Instructions: Preventing Falls in the Older Adult Add. Discharge Instructions: You need to be sure and take your own medication and only her own medication as previously prescribed. Follow-up with Dr. Siegel within 1 week for recheck. Return back to the emergency room for any worsening symptoms or concerns as needed. All discharge instructions reviewed with patient and/or family. Voiced understanding. MELISSA ORTEGA Jun 04, 2018 16:10
--- NOTE | 2018-06-04 16:55 | Diagnostic Imaging Report ---
PROCEDURE: CT lumbar spine without contrast. TECHNIQUE: Multiple contiguous axial images were obtained through the lumbar spine without the use of intravenous contrast. Sagittal and coronal reformations were then performed. INDICATION: Fall with tailbone pain. Comparison is made with prior spine CT from 05/27/2018. FINDINGS: Volume loss and slight retropulsion of L1 vertebral body appears similar to a recent CT one week ago. This again remains indeterminate between subacute or versus chronic fracture. Remaining lumbar vertebrae show normal stature. Paraspinous tissues demonstrate some apparent effusions in both lung bases. Paraspinous tissues are unremarkable apart from densely calcified aorta and iliac vessels. The majority of the sacrum was not included on this study. Coccyx was not included. IMPRESSION: 1. Age-indeterminate fracture of the L1 vertebral body. No new abnormality is detected. 2. Bilateral pleural effusions with bibasilar infiltrates or atelectasis. Dictated by: Dictated on workstation # [id number]
[2018-06-04 17:50] VITALS: BP 102/76
== END 2018-06-04 17:50 | disposition home or self-care (01) ==
LOC: ER 15:42 → EDUNIT# 15:42 → ER 17:50
DX: S32.010D Wedge compression fracture of first lumbar vertebra, subsequent encounter for fracture with routine healing (principal); R40.2142 Coma scale, eyes open, spontaneous, at arrival to emergency department; R40.2252 Coma scale, best verbal response, oriented, at arrival to emergency department; R40.2362 Coma scale, best motor response, obeys commands, at arrival to emergency department; J44.9 Chronic obstructive pulmonary disease, unspecified; I25.10 Atherosclerotic heart disease of native coronary artery without angina pectoris; I25.2 Old myocardial infarction; E78.00 Pure hypercholesterolemia, unspecified; G40.909 Epilepsy, unspecified, not intractable, without status epilepticus; K21.9 Gastro-esophageal reflux disease without esophagitis; E11.40 Type 2 diabetes mellitus with diabetic neuropathy, unspecified; F41.9 Anxiety disorder, unspecified; F32.9 Major depressive disorder, single episode, unspecified; M81.0 Age-related osteoporosis without current pathological fracture; Z87.19 Personal history of other diseases of the digestive system; Z86.73 Personal history of transient ischemic attack (TIA), and cerebral infarction without residual deficits; Z95.9 Presence of cardiac and vascular implant and graft, unspecified; Z80.49 Family history of malignant neoplasm of other genital organs; Z79.82 Long term (current) use of aspirin; Z79.4 Long term (current) use of insulin; Z79.02 Long term (current) use of antithrombotics/antiplatelets; Z90.49 Acquired absence of other specified parts of digestive tract; Z95.1 Presence of aortocoronary bypass graft; Z95.5 Presence of coronary angioplasty implant and graft; Z98.890 Other specified postprocedural states; Z90.710 Acquired absence of both cervix and uterus; W01.0XXD Fall on same level from slipping, tripping and stumbling without subsequent striking against object, subsequent encounter; Y92.002 Bathroom of unspecified non-institutional (private) residence as the place of occurrence of the external cause
CPT/HCPCS: 72131

== ENCOUNTER 2018-07-01 20:43 | Inpatient (IN) | payer MEDICARE ==
[~2018-07-01] VITALS: Ht 167.6 cm; Wt 78.9 kg
[2018-07-01] MEDS ORDERED: PIPERACILLIN SODIUM/TAZOBACTAM 4.5 GM in NS (IVPB) 100 ML IV ONE (21:00)
[2018-07-01] MEDS ORDERED: RT-ALBUTEROL/IPRATROPIUM 3 ML (DUONEB) VIAL INH ONE (21:00)
[2018-07-01] MEDS ORDERED: NS IV 1000 ML 1,000 ML IV ONE (21:00)
[2018-07-01] MEDS ORDERED: D5 NS 1000 ML IV SOLUTION 1,000 ML IV ONE (21:01)
--- NOTE | 2018-07-01 21:06 | ED Abdominal Pain ---
General Stated Complaint: STOMACH PAIN/LOW BLOOD SUGAR Source of Information: Patient, EMS Exam Limitations: No Limitations History of Present Illness Date Seen by Provider: Jul 01, 2018 Time Seen by Provider: 20:45 Initial Comments Patient presents to ER by EMS from home where family noted her blood sugar to be low at 76 and she was having a lot of belly pain for the past to 3 days. She' s not having any nausea or chest pain. She has a history of CABG and on her abdomen the past. She says her pain is in her midepigastric region. She' s had no diarrhea or constipation. She is a very limited historian very tired with short answers. EMS reports her blood sugar was 81 when they arrived to give her a tube of glucose and her blood sugar came up to 110. Upon arrival they checked her blood sugar and it was back down to 80. Patient denies any fevers or chills. Patient relates a headache on the right side were head as well as a recent fall in the past week she's not sure when. She denies being knocked out but she is on Plavix. She says she landed on her left side. Allergies and Home Medications Allergies Coded Allergies: NORAHANo Known Allergies (Verified Allergy, Unknown, 04/27/13) Home Medications Aspirin 81 Mg Tablet., 81 MG PO HS, (Reported) Atorvastatin Calcium 80 Mg Tablet, 80 MG PO HS, (Reported) LAST FILLED #60 12-02-17 Clopidogrel Bisulfate 75 Mg Tablet, 75 MG PO HS, (Reported) LAST FILLED #30 12-02-17 Gabapentin 300 Mg Capsule, 300 MG PO BID, (Reported) LAST FILLED #60 01-13-18 Guaifenesin/Dextromethorphan 5 Ml Syrup, 10 ML PO Q4H PRN for COUGH, (Reported) Hydrocodone Bit/Acetaminophen 1 Tab Tab, 1 TAB PO Q4H PRN for PAIN-MILD TO MODERATE Prescribed by: TAWNY GALEANO on 05/02/18 1444 Insulin Aspart 100 Unit/1 Ml Susp, 0 UNIT SC ACHS Prescribed by: GIULIANO LAGUERRE on 05/03/18 0857 Metoprolol Succinate 25 Mg Tab.er.24h, 12.5 MG PO DAILY, (Reported) LAST FILLED #30 18 TAKES 1/2 (25MG) TABLET Pantoprazole Sodium 40 Mg Tablet., 40 MG PO DAILY@0700 Prescribed by: TAWNY GALEANO on 05/02/181443 Sertraline HCl 50 Mg Tablet, 25 MG PO HS Prescribed by: TAWNY GALEANO on 05/02/181443 Sucralfate 1 Gm Tablet, 1 GM PO ACHS Prescribed by: TAWNY GALEANO on 05/02/181443 Patient Home Medication List Home Medication List Reviewed: Yes Review of Systems Review of Systems Constitutional: No chills, No diaphoresis, No fever; malaise, weakness EENTM: No Blurred Vision, No Double Vision, No Eye Pain, No Nose Congestion, No Nose Pain Respiratory: Denies Cough, Denies Shortness of Air, Denies Wheezing Cardiovascular: Denies Chest Pain, Denies Lightheadedness, Denies Palpitations , Denies Syncope Gastrointestinal: Denies Abdomen Distended; Abdominal Pain; Denies Blood Streaked Stools, Denies Constipated, Denies Diarrhea, Denies Nausea; Poor Appetite, Poor Fluid Intake; Denies Vomiting Genitourinary: Denies Burning, Denies Discharge Musculoskeletal: No back pain, No joint pain, No neck pain Skin: No dryness, No pruritus, No rash Psychiatric/Neurological: Headache; Denies Numbness, Denies Paresthesia Past Xnmqdmj-Cnidsf-Fkkphk Hx Patient Social History Recreational Drug Use: No Smoking Status: Current Everyday Smoker Type Used: Cigarettes 2nd Hand Smoke Exposure: No Recent Foreign Travel: No Contact w/Someone Who Travel: No Recent Hopitalizations: No Immunizations Up To Date Tetanus Booster (TDap): Unknown PED Vaccines UTD: No Date of Pneumonia Vaccine: Jun 02, 2011 Date of Influenza Vaccine: Apr 02, 2017 Seasonal Allergies Seasonal Allergies: No Past Medical History Surgeries: Yes Appendectomy, Cardiac, CABG, Section, Coronary Stent, Hysterectomy, Oophorectomy, Orthopedic Respiratory: Yes (NO HOME O2, CONTINUES TO SMOKE 1 PPD) COPD Currently Using CPAP: No Cardiac: Yes (MULTIPLE CARDIAC CATHS- MULTIPLE STENTS; CABG) Coronary Artery Disease, Heart Attack, High Cholesterol, Irregular Heartbeat Neurological: Yes Neuropathy, Seizure Disorder, TIA Reproductive Disorders: No Female 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 ) Diabetes, Insulin dep HEENT: Yes Cataract Loss of Vision: Denies Hearing Impairment: Denies Cancer: No Psychosocial: Yes Anxiety, Depression Integumentary: No Blood Disorders: No Adverse Reaction/Blood Tranf: No Family Medical History FH: suicide FH: uterine cancer 19 MOTHER FHx: diabetes mellitus 19 MOTHER No Pertinent Family Hx Physical Exam Vital Signs Vital Signs - First Documented 07/01/18 20:45 Temp 94.6 Pulse 72 Resp 20 B/P (MAP) 93/67 (76) Pulse Ox 100 O2 Delivery OxyMask O2 Flow Rate 8.00 Capillary Refill : Height/Weight/BMI Height: 5'6.00" Weight: 122lbs. 12.8oz. 55.228509nc; 24.4 BMI Method:Stated General Appearance: moderate distress, other (disheveled) HEENT: PERRL/EOMI, TMs normal, other (oropharynx is very dry. There is ecchymoses across the left jawline and no Robledo sign. Right eye upper eyelid is edematous and erythematous without evidence of abscess or induration.) Neck: non-tender, normal inspection Respiratory: chest non-tender, respiratory distress (mod), decreased breath sounds, accessory muscle use (minimal) Cardiovascular: normal peripheral pulses, regular rate, rhythm, other (cool, erythematous, chronically edematous 1-2+ pitting bilateral lower extremities up to the shins) Gastrointestinal: normal bowel sounds, soft, tenderness (midepigastric) Extremities: non-tender, normal inspection, pedal edema, slow capillary refill (3 secs) Back: normal inspection, vertebral tenderness (lumbar) Neurologic/Psychiatric: other (gcs14) Skin: normal color, cool Focused Exam Lactate Level 07/01/18 22:00: Lactic Acid Level 1.78 Lactic Acid Level Laboratory Tests Test 07/01/18 22:00 Lactic Acid Level 1.78 MMOL/L (0.50-2.00) Progress/Results/Core Measures Results/Orders Lab Results Laboratory Tests Test 07/01/18 20:54 07/01/18 21:00 07/01/18 21:10 07/01/18 22:00 Range/Units Glucometer 78 70-110 MG/DL White Blood Count 8.8 4.3-11.0 10^3/uL Red Blood Count 4.21 L 4.35-5.85 10^6/uL Hemoglobin 10.9 L 11.5-16.0 G/DL Hematocrit 33 L 35-52 % Mean Corpuscular Volume 79 L 80-99 FL Mean Corpuscular Hemoglobin 26 25-34 PG Mean Corpuscular Hemoglobin Concent 33 32-36 G/DL Red Cell Distribution Width 17.2 H 10.0-14.5 % Platelet Count 350 130-400 10^3/uL Mean Platelet Volume 10.1 7.4-10.4 FL Neutrophils (%) (Auto) 65 42-75 % Lymphocytes (%) (Auto) 21 12-44 % Monocytes (%) (Auto) 13 H 0-12 % Eosinophils (%) (Auto) 1 0-10 % Basophils (%) (Auto) 0 0-10 % Neutrophils # (Auto) 5.8 1.8-7.8 X 10^3 Lymphocytes # (Auto) 1.8 1.0-4.0 X 10^3 Monocytes # (Auto) 1.2 H 0.0-1.0 X 10^3 Eosinophils # (Auto) 0.0 0.0-0.3 10^3/uL Basophils # (Auto) 0.0 0.0-0.1 10^3/uL Prothrombin Time 17.1 H 12.2-14.7 SEC INR Comment 1.4 0.8-1.4 Activated Partial Thromboplast Time 34 24-35 SEC B-Type Natriuretic Peptide 2147.9 H <100.0 PG/ML Urine Color YELLOW Urine Clarity SLIGHTLY CLOUDY Urine pH 5 5-9 Urine Specific [place] 1.020 1.016-1.022 Urine Protein 3+ H NEGATIVE Urine Glucose (UA) NEGATIVE NEGATIVE Urine Ketones NEGATIVE NEGATIVE Urine Nitrite NEGATIVE NEGATIVE Urine Bilirubin 1+ H NEGATIVE Urine Urobilinogen 1 NORMAL MG/DL Urine Leukocyte Esterase 3+ H NEGATIVE Urine RBC (Auto) 2+ H NEGATIVE Urine RBC 2-5 H /HPF Urine WBC 25-50 H /HPF Urine Crystals PRESENT H /LPF Urine Amorphous Sediment MOD LATRELL URATES H /LPF Urine Bacteria FEW H /HPF Urine Casts PRESENT /LPF Urine Hyaline Casts 2-5 H /LPF Urine Mucus SMALL H /LPF Urine Culture Indicated YES Blood Gas Puncture Site RIGHT RADIAL Blood Gas Patient Temperature 94.6 Arterial Blood pH 7.31 *L 7.37-7.43 Arterial Blood Partial Pressure CO2 43 35-45 MMHG Arterial Blood Partial Pressure O2 145 H 79-93 MMHG Arterial Blood HCO3 22 L 23-27 MMOL/L Arterial Blood Total CO2 23.2 21.0-31.0 MMOL/L Arterial Blood Oxygen Saturation 99 94-100 % Arterial Blood Base Excess -3.9 L -2.5-2.5 MMOL/L Benny Test POSITIVE Blood Gas Ventilator Setting NO Blood Gas Inspired Oxygen 8L Sodium Level 120 *L 135-145 MMOL/L Potassium Level 4.7 3.6-5.0 MMOL/L Chloride Level 87 L 98-107 MMOL/L Carbon Dioxide Level 16 L 21-32 MMOL/L Anion Gap 17 H 5-14 MMOL/L Blood Urea Nitrogen 38 H 7-18 MG/DL Creatinine 3.18 H 0.60-1.30 MG/DL Estimat Glomerular Filtration Rate 14 BUN/Creatinine Ratio 12 Glucose Level 86 70-105 MG/DL Lactic Acid Level 1.78 0.50-2.00 MMOL/L Calcium Level 7.7 L 8.5-10.1 MG/DL Corrected Calcium 8.3 L 8.5-10.1 MG/DL Magnesium Level 1.9 1.8-2.4 MG/DL Total Bilirubin 0.6 0.1-1.0 MG/DL Aspartate Amino Transf (AST/SGOT) 314 H 5-34 U/L Alanine Aminotransferase (ALT/SGPT) 161 H 0-55 U/L Alkaline Phosphatase 126 40-136 U/L Troponin I 1.03 *H <0.30 NG/ML Total Protein 7.2 6.4-8.2 GM/DL Albumin 3.3 3.2-4.5 GM/DL Lipase 39 8-78 U/L Micro Results Microbiology 07/01/18 Influenza Types A,B Antigen (ESTUARDO) - Final, Complete My Orders Orders - JUAN C DUKES Cbc With Automated Diff (07/01/18 20:52) Comprehensive Metabolic Panel (07/01/18 20:52) Blood Culture (07/01/18 20:52) Sputum Culture (07/01/18 20:52) Urinalysis (07/01/18 20:52) Urine Culture (07/01/18 20:52) Protime With Inr (07/01/18 20:52) Partial Thromboplastin Time (07/01/18 20:52) Saline Lock/Iv-Start (07/01/18 20:52) Saline Lock/Iv-Start (07/01/18 20:52) Vital Signs Adult Sepsis Patie Q15M (07/01/18 20:52) O2 (07/01/18 20:52) Remove Rings In Anticipation O (07/01/18 20:52) Lactic Acid Analyzer (07/01/18 20:52) Influenza A And B Antigens (07/01/18 20:52) Ns Iv 1000 Ml (Sodium Chloride 0.9%) (07/01/18 21:00) Piperacillin Sodium/Tazobactam (Zosyn Vi (07/01/18 21:00) Albuterol/Ipra Inhalation Soln (Duoneb I (07/01/18 21:00) Chest 1 View, Ap/Pa Only (07/01/18 20:52) Svn Small Volume Nebulizer (07/01/18 20:52) D5 Ns 1000 Ml Iv Solution (Dextrose 5%/0 (07/01/18 21:15) D5 Ns 1000 Ml Iv Solution (Dextrose 5%/0 (07/01/18 21:01) Ct Abdomen/Pelvis Wo (07/01/18 21:09) Ct Head/Cervical Spine Wo (07/01/18 21:09) Arterial Blood Gas (07/01/18 21:11) BNP (07/01/18 21:11) Catheter(Urinary) Insert & Ass 03,15 (07/01/18 21:11) Lipase (07/01/18 21:19) Arterial Blood Draw (07/01/18 ) Ekg Tracing (07/01/18 21:22) Continuous Ekg Monitoring (07/01/18 21:22) Troponin I (07/01/18 21:22) Magnesium (07/01/18 21:46) Accucheck Stat ONCE (07/01/18 21:56) Saline Lock/Iv-Start (07/01/18 22:21) Ns Iv 500 Ml (Sodium Chloride 0.9%) (07/01/18 22:21) Myoglobin Serum (07/01/18 23:29) Lipid Panel (07/02/18 06:00) Heparin (Bolus Per Protocol) (Heparin (B (07/01/18 23:45) Medications Given in ED Current Medications Medications Dose Ordered Sig/Roman Route Start Time Stop Time Status Last Admin Dose Admin Albuterol/ Ipratropium 3 ml ONCE ONCE INH 07/01/18 21:00 07/01/18 21:02 DC 07/01/18 21:15 3 ML Piperacillin Sod/ Tazobactam Sod 4.5 gm/Sodium Chloride 100 ml @ 200 mls/hr ONCE ONCE IV 07/01/18 21:00 07/01/18 21:29 DC 07/01/18 21:17 200 MLS/HR Sodium Chloride 500 ml @ 0 mls/hr Q0M ONCE IV 07/01/18 22:21 07/01/18 22:22 DC 07/01/18 22:36 0 MLS/HR Sodium Chloride 1,000 ml @ 1,000 mls/hr ONCE ONCE IV 07/01/18 21:00 07/01/18 21:59 DC 07/01/18 21:16 1,000 MLS/HR Vital Signs/I&O 07/01/18 07/01/18 07/01/18 20:45 20:45 21:16 Temp 94.6 Pulse 72 Resp 20 B/P (MAP) 93/67 (76) Pulse Ox 100 100 100 O2 Delivery OxyMask OxyMask OxyMask O2 Flow Rate 8.00 8.00 7.00 Progress Progress Note : Time: 21:17 Progress Note Core temperature 90.4F. We'll do a septic workup. Her oxygen saturations were in the 80% range with good waveform From the sticky on the forehead so we will put her on oxygen mask which brought her up to 98 100%. Her rest or distress is rather minimal and all she has diminished breath sounds she denies using any kind of breathing treatments chronically so there may be some component of undiagnosed COPD here. We'll give her breathing treatment obtain an ABG. She also relates to having some falls recently and with her sluggish mentation this could be from a subdural hematoma so we'll get a CT of her head and neck. Most likely is sepsis due to infection in the abdomen. We'll check lipase urine put a Frausto catheter in her start with 20 cc/kg bolus of warmed normal saline as well as D5 normal saline running at 100 cc an hour to maintain her blood sugars which are beginning to drop again. Her blood pressures pretty soft on arrival in the upper 90s systolic; we'll see what some fluids will do for her. CT of the abdomen without secondary to her history of chronic kidney disease. In the past year her creatinines been in the 2-3 range. Patient has a history of renal failure and the creatinine that runs between 2 and 3. Systolic and diastolic CHF. History of hyponatremia. Non-STEMI on September 2017 treated by PCI. Catheterization October 2017 had reocclusion treated successfully by balloon angioplasty. Echocardiogram by Dr. Browne October 2017 showed left ventricular ejection fraction of 45-50% with anteroseptal 8 kidney cyst to hypokinesis. Mild mitral and tricuspid regurgitation and grade 1 diastolic dysfunction. Probable history of COPD. Diabetic nephropathy and history of noncompliance. Initial ECG Impression Date: Jul 01, 2018 Initial ECG Impression Time: 21:28 Initial ECG Rate: 71 Initial ECG Rhythm: Normal Sinus Initial ECG Intervals: SC (228) Initial ECG Impression: 1st Degree AV Block Initial ECG Comparisson: Changed Comment New first-degree AV block but no ST elevation or depression. Low voltage EKG likely secondary to COPD. Diagnostic Imaging Diagonstic Imaging: Xray Plain Films/CT/US/NM/MRI: chest (1v) Comments No acute findings on one view chest. Mildly prominent pulmonary vasculature. NAME: DEBORA GARCIA [facility] REC#: [id number] PHYSICIAN: JUAN C DUKES MD CC: CIERRA OGLESBY DO; JUAN C DUKES Page 1 of 1 RADIOLOGY REPORT [facility] [place] CC: CIERRA OGLESBY DO; JUAN C DUKES Page 1 of 1 RADIOLOGY REPORT NAME: DEBORA GARCIA MED REC#: [id number] PT STATUS: REG ER : 1940 PHYSICIAN: JUAN C DUKES MD ADMIT DATE: 07/01/18/ER Signed Date of Exam: 07/01/18 CHEST 1 VIEW, AP/PA ONLY INDICATION: Altered mental status, hypoglycemia. TECHNIQUE: Single view chest 9:47 PM. CORRELATION STUDY: 05/27/2018 FINDINGS: Poststernotomy changes. Cardiac enlargement. Vasculature is prominent. There has been improved aeration of the lung bonilla. However, combination of effusions along with atelectasis and/or infiltrate versus edema about both lung bonilla, left greater than right, are present. IMPRESSION: 1. Cardiac enlargement with mild vascular congestion. 2. Improved aeration of the lung bonilla from prior study. However, combination of effusion along with infiltrate and/or edema about both lung bases, left greater than right, does persist. Dictated by: Dictated on workstation # [id number] Dict: 07/01/182205 Trans: 07/01/182236 Interpreted by: CIERRA OGLESBY DO Electronically signed by: CIERRA OGLESBY DO 07/01/182236 Reviewed: Reviewed by Nc Diagonstic Imaging: CT (noncontrast) Plain Films/CT/US/NM/MRI: abdomen, pelvis Comments Fluid around the liver capsule and ascites in the pelvis. Stool highlighted in the colon. [facility] [place] NAME: DEBORA GARCIA [facility] REC#: [id number] PT STATUS: REG ER : 1940 PHYSICIAN: JUAN C DUKES MD ADMIT DATE: 07/01/18/ER Draft Date of Exam:07/01/18 CT ABDOMEN/PELVIS WO PROCEDURE: CT abdomen and pelvis without contrast. TECHNIQUE: Multiple contiguous axial images were obtained through the abdomen and pelvis without the use of intravenous contrast. INDICATION: Hypoglycemia, abdominal pain. CORRELATION STUDY: 03/18/2018. FINDINGS: The examination is compromised with lack of contrast material as well as attenuation from the patient's upper extremities in the [id number]. There is overall increasing severity of generalized edema and anasarca compared to prior study. Increasing third spacing is present. This also includes presence of moderate bilateral pleural effusions predominantly layering dependently. Associated atelectasis and/or infiltrate and/or perhaps mild edema about the lower lobe distributions. Heart size is enlarged. Heterogeneous attenuation through the unenhanced liver without definitive focal lesion. Spleen and visualized pancreas appear unremarkable. Hypertrophic changes about the adrenal glands stable. Kidneys unchanged. Calcification over the inferior pole left kidney. No significant hydronephrosis. Rather significant aortoiliac vascular calcification without aneurysmal dilatation. Gastrointestinal tract demonstrates colonic diverticulosis to be present. Inflammation of the GI tract would be difficult to assess given the edema and ascites. No obstruction. Urinary bladder is decompressed around a Frausto catheter. Pelvic fluid is present. Likely post hysterectomy changes. Osseous structures with diffuse bony demineralization. Moderate compression deformity of the inferior L1 endplate, stable. IMPRESSION: 1. Rather prominent severity anasarca including moderate bilateral pleural effusions as well as presence of abdominal and pelvic ascites and diffuse subcutaneous edema. 2. Rather dense aortoiliac wall calcification. 3. Nonobstructing inferior pole left renal stone. 4. Colonic diverticulosis. Inflammation of the gastrointestinal tract would be difficult to demonstrate given the rather pronounced third spacing. Dictated on workstation # [id number] Dict: 07/01/182209 Trans: 07/01/18 2251 [facility] [id number] Interpreted by: CIERRA OGLESBY DO Electronically signed by: Reviewed: Reviewed by Nc Diagonstic Imaging: CT (noncontrast) Plain Films/CT/US/NM/MRI: c-spine, head Comments No acute intracranial hemorrhage, fracture of the calvarium, midline shift, mass effect or tumor. No acute fracture or dislocation or subluxation of the cervical spine. Degenerative osteoarthritis noted. NAME: DEBORA GARCIA MED REC#: [id number] PHYSICIAN: JUAN C DUKES MD CC: CIERRA OGLESBY DO; JUAN C DUKES Page 2 of 2 RADIOLOGY REPORT [facility], [place] CC: CIERRA OGLESBY DO; JUAN C DUKES Page 1 of 2 RADIOLOGY REPORT NAME: DEBORA GACRIA MED REC#: [id number] PT STATUS: REG ER : 1940 PHYSICIAN: JUAN C DUKES MD ADMIT DATE: 07/01/18/ER Signed Date of Exam: 07/01/18 CT HEAD/CERVICAL SPINE WO PROCEDURE: CT head and CT cervical spine without contrast. TECHNIQUE: Multiple contiguous axial images were obtained through the brain and cervical spine without the use of intravenous contrast. Sagittal and coronal reformations through the cervical spine were then performed. INDICATION: Headache, altered mental status, abdominal pain, hypoglycemia. CORRELATION STUDY: 05/27/2018 FINDINGS: CT HEAD: Imaging of the head has a relatively stable appearance. There is generalized atrophic changes with prominence of the ventricles and sulci. No abnormal areas of decreased attenuation to suggest edema. No intracranial hemorrhage. Likely chronic changes of the small vessel ischemic disease. Bony calvarium intact with biparietal calvarial thinning. Paranasal sinuses and mastoid air cells relatively clear. Patient is edentulous. CT CERVICAL SPINE: Reformatted images demonstrate trace anterolisthesis of C4 on C5, relatively stable. There is also trace anterolisthesis C7 on T1. Vertebral body height unchanged. Diffuse bony demineralization present. Multifocal degenerative changes are present. Marked disc space narrowing C6-C7 and to a lesser degree C5-C6 level. Osteophytes at these levels result in osseous encroachment and narrowing of foramina and spinal canal. Posterior elements with asymmetric hypertrophic facet arthropathy, otherwise intact. Odontoid intact. There is rather prominent vascular calcification. Partially visualized thyroid gland appears enlarged. Examination is compromised with motion artifact. IMPRESSION: CT HEAD: 1. Negative for acute traumatic intracranial abnormality. 2. Generalized atrophic changes with likely changes of small vessel ischemic disease. CT CERVICAL SPINE: 1. Negative for acute fracture or traumatic subluxation. 2. Rather advanced multilevel cervical spondylosis is present. Areas of canal and foramina narrowing owing to degenerative endplate spurring are present and appear generally stable. Dictated by: Dictated on workstation # [id number] Dict: 07/01/182157 Trans: 07/01/182243 Interpreted by: CIERRA OGLESBY DO Electronically signed by: CIERRA OGLESBY DO 07/01/182243 Reviewed: Reviewed by Me Departure Communication (Admissions) Time/Spoke to Admitting Phy: 23:25 Discussed case lab imaging findings with Dr. Coto she agrees with ICU and heparin and antibiotic choice. Time/Spoke to Consulting Phy: 23:25 Discussed the case lab imaging findings with Dr. Francois agrees with ICU, heparin and will see the patient. Impression Primary Impression: Acute non-ST elevation myocardial infarction (NSTEMI) Additional Impressions: UTI (urinary tract infection) Qualified Codes: N30.00 - Acute cystitis without hematuria Sepsis Qualified Codes: A41.9 - Sepsis, unspecified organism Hyponatremia Disposition: ADMITTED INPATIENT Condition: Critical Admissions Decision to Admit Reason: Admit from ER (General) Decision to Admit/Date: Jul 01, 2018 Time/Decision to Admit Time: 23:41 Departure-Patient Inst. Referrals: MERRICK SIEGEL DO (PCP/Family) Primary Care Physician Copy Copies To 1: MERRICK SIEGEL TITUS J Jul 01, 2018 21:05
[2018-07-01 21:14] LABS: BASOPHILS % (AUTO) 0 % (0-10); EOSINOPHILS % (AUTO) 1 % (0-10); HEMATOCRIT 33 % (35-52); HEMOGLOBIN 10.9 G/DL (11.5-16.0); LYMPHOCYTES # (AUTO) 1.8 X 10^3 (1.0-4.0); LYMPHOCYTES % (AUTO) 21 % (12-44); MEAN CORPUSCULAR HEMOGLOBIN 26 PG (25-34); MEAN CORPUSCULAR HGB CONC 33 G/DL (32-36); MEAN CORPUSCULAR VOLUME 79 FL (80-99); MEAN PLATELET VOLUME 10.1 FL (7.4-10.4); MONOCYTES # (AUTO) 1.2 X 10^3 (0.0-1.0); MONOCYTES % (AUTO) 13 % (0-12); NEUTROPHILS # (AUTO) 5.8 X 10^3 (1.8-7.8); NEUTROPHILS % (AUTO) 65 % (42-75); PLATELET COUNT 350 10^3/uL (130-400); RED BLOOD COUNT 4.21 10^6/uL (4.35-5.85); RED CELL DISTRIBUTION WIDTH 17.2 % (10.0-14.5); WHITE BLOOD COUNT 8.8 10^3/uL (4.3-11.0)
[2018-07-01] MEDS: D5 NS 1000 ML IV SOLUTION 1,000 ML IV SCH (21:17)
[2018-07-01 21:18] LABS: ABG BASE EXCESS -3.9 MMOL/L (-2.5-2.5); ABG OXYGEN SATURATION 99 % (94-100); ABG PCO2 43 MMHG (35-45); ABG PO2 145 MMHG (79-93); ABG TCO2 23.2 MMOL/L (21.0-31.0)
[2018-07-01 21:19] LABS: ABG PH 7.31 (7.37-7.43); ALLENS TEST POSITIVE; INSPIRED O2 8L; PATIENT TEMP 94.6; VENTILATOR NO
[2018-07-01 21:28] LABS: INR 1.4 (0.8-1.4); PROTHROMBIN TIME PATIENT 17.1 SEC (12.2-14.7)
[2018-07-01 21:30] LABS: CLARITY,URINE SLIGHTLY CLOUDY; GLUCOSE, URINE (UA) NEGATIVE (NEGATIVE); KETONES,URINE NEGATIVE (NEGATIVE); LEUKOCYTE ESTERASE ,URINE 3+ (NEGATIVE); NITRITE,URINE NEGATIVE (NEGATIVE); PH,URINE 5 (5-9); PROTEIN,URINE 3+ (NEGATIVE); UROBILINOGEN,URINE 1 MG/DL (NORMAL)
[2018-07-01 21:43] LABS: AMORPHOUS SEDIMENT,UR MOD AMOR URATES /LPF; BACTERIA,URINE FEW /HPF; BILIRUBIN,URINE 1+ (NEGATIVE); COLOR,URINE YELLOW; WBC,URINE 25-50 /HPF
[2018-07-01] MEDS ORDERED: NS IV 500 ML 500 ML IV ONE (22:21)
--- NOTE | 2018-07-01 22:27 | Diagnostic Imaging Report ---
INDICATION: Altered mental status, hypoglycemia. TECHNIQUE: Single view chest 9:47 PM. CORRELATION STUDY: 05/27/2018 FINDINGS: Poststernotomy changes. Cardiac enlargement. Vasculature is prominent. There has been improved aeration of the lung bonilla. However, combination of effusions along with atelectasis and/or infiltrate versus edema about both lung bonilla, left greater than right, are present. IMPRESSION: 1. Cardiac enlargement with mild vascular congestion. 2. Improved aeration of the lung bonilla from prior study. However, combination of effusion along with infiltrate and/or edema about both lung bases, left greater than right, does persist. Dictated by: Dictated on workstation # [id number]
[2018-07-01 22:29] LABS: ALBUMIN 3.3 GM/DL (3.2-4.5); BILIRUBIN,TOTAL 0.6 MG/DL (0.1-1.0); CALCIUM 7.7 MG/DL (8.5-10.1); CREATININE SERUM 3.18 MG/DL (0.60-1.30); POTASSIUM 4.7 MMOL/L (3.6-5.0); TOTAL PROTEIN 7.2 GM/DL (6.4-8.2)
--- NOTE | 2018-07-01 22:43 | Diagnostic Imaging Report ---
PROCEDURE: CT head and CT cervical spine without contrast. TECHNIQUE: Multiple contiguous axial images were obtained through the brain and cervical spine without the use of intravenous contrast. Sagittal and coronal reformations through the cervical spine were then performed. INDICATION: Headache, altered mental status, abdominal pain, hypoglycemia. CORRELATION STUDY: 05/27/2018 FINDINGS: CT HEAD: Imaging of the head has a relatively stable appearance. There is generalized atrophic changes with prominence of the ventricles and sulci. No abnormal areas of decreased attenuation to suggest edema. No intracranial hemorrhage. Likely chronic changes of the small vessel ischemic disease. Bony calvarium intact with biparietal calvarial thinning. Paranasal sinuses and mastoid air cells relatively clear. Patient is edentulous. CT CERVICAL SPINE: Reformatted images demonstrate trace anterolisthesis of C4 on C5, relatively stable. There is also trace anterolisthesis C7 on T1. Vertebral body height unchanged. Diffuse bony demineralization present. Multifocal degenerative changes are present. Marked disc space narrowing C6-C7 and to a lesser degree C5-C6 level. Osteophytes at these levels result in osseous encroachment and narrowing of foramina and spinal canal. Posterior elements with asymmetric hypertrophic facet arthropathy, otherwise intact. Odontoid intact. There is rather prominent vascular calcification. Partially visualized thyroid gland appears enlarged. Examination is compromised with motion artifact. IMPRESSION: CT HEAD: 1. Negative for acute traumatic intracranial abnormality. 2. Generalized atrophic changes with likely changes of small vessel ischemic disease. CT CERVICAL SPINE: 1. Negative for acute fracture or traumatic subluxation. 2. Rather advanced multilevel cervical spondylosis is present. Areas of canal and foramina narrowing owing to degenerative endplate spurring are present and appear generally stable. Dictated by: Dictated on workstation # [id number]
--- NOTE | 2018-07-01 22:52 | Diagnostic Imaging Report ---
PROCEDURE: CT abdomen and pelvis without contrast. TECHNIQUE: Multiple contiguous axial images were obtained through the abdomen and pelvis without the use of intravenous contrast. INDICATION: Hypoglycemia, abdominal pain. CORRELATION STUDY: 03/18/2018. FINDINGS: The examination is compromised with lack of contrast material as well as attenuation from the patient's upper extremities in the ofojc-[id number]. There is overall increasing severity of generalized edema and anasarca compared to prior study. Increasing third spacing is present. This also includes presence of moderate bilateral pleural effusions predominantly layering dependently. Associated atelectasis and/or infiltrate and/or perhaps mild edema about the lower lobe distributions. Heart size is enlarged. Heterogeneous attenuation through the unenhanced liver without definitive focal lesion. Spleen and visualized pancreas appear unremarkable. Hypertrophic changes about the adrenal glands stable. Kidneys unchanged. Calcification over the inferior pole left kidney. No significant hydronephrosis. Rather significant aortoiliac vascular calcification without aneurysmal dilatation. Gastrointestinal tract demonstrates colonic diverticulosis to be present. Inflammation of the GI tract would be difficult to assess given the edema and ascites. No obstruction. Urinary bladder is decompressed around a Frausto catheter. Pelvic fluid is present. Likely post hysterectomy changes. Osseous structures with diffuse bony demineralization. Moderate compression deformity of the inferior L1 endplate, stable. IMPRESSION: 1. Rather prominent severity anasarca including moderate bilateral pleural effusions as well as presence of abdominal and pelvic ascites and diffuse subcutaneous edema. 2. Rather dense aortoiliac wall calcification. 3. Nonobstructing inferior pole left renal stone. 4. Colonic diverticulosis. Inflammation of the gastrointestinal tract would be difficult to demonstrate given the rather pronounced third spacing. Dictated by: Dictated on workstation # [id number]
[2018-07-01] MEDS ORDERED: HEParin 1000 UNIT/ML (10ML VIAL) FOR BOLUS IV ONE (23:45)
[2018-07-02] VITALS (22 sets, daily range): BP systolic 89–115; BP diastolic 51–78
[2018-07-02] MEDS ORDERED: NS W/KCL 20 MEQ/L 1,000 ML IV SCH (00:30)
[2018-07-02] MEDS ORDERED: ACETAMINOPHEN 500 MG TAB (TYLENOL) PO PRN (00:30)
[2018-07-02] MEDS ORDERED: HEParin DRIP 25000 UNIT/500ML 500 ML IV SCH (00:32)
[2018-07-02] MEDS ORDERED: NOREPINEPHRINE 4 MG in NS (IVPB) 250 ML IV SCH (00:37)
[2018-07-02] MEDS ORDERED: VASOPRESSIN INJECTION 20 UNIT in NS (IVPB) 100 ML IV SCH (00:37)
[2018-07-02] MEDS ORDERED: NS IV ONE (00:45)
[2018-07-02] MEDS ORDERED: HEParin 1000 UNIT/ML (10ML VIAL) FOR BOLUS IV SCH (00:45)
[2018-07-02] MEDS ORDERED: LACTATED RINGERS IV PRN (00:45)
[2018-07-02] MEDS ORDERED: cefTRIAXone FOR IV USE 1,000 MG in NS (IVPB) 50 ML IV SCH (00:45)
[2018-07-02] MEDS: NS IV 1000 ML 1,000 ML IV SCH ×3 (01:04→06:10)
[2018-07-02] MEDS: D5 NS 1000 ML IV SOLUTION 1,000 ML IV SCH (01:05)
[2018-07-02] MEDS ORDERED: RT-ALBUTEROL/IPRATROPIUM 3 ML (DUONEB) VIAL INH PRN (01:15)
[2018-07-02] MEDS: RT-ALBUTEROL/IPRATROPIUM 3 ML (DUONEB) VIAL INH SCH ×2 (01:37→06:15)
[2018-07-02] MEDS ORDERED: morphine INJ 4 MG/ML 1 ML (VIAL/SYRINGE) IVP PRN (02:30)
[2018-07-02] MEDS ORDERED: NITROGLYCERIN 0.4 MG SL TABS BTL 25'S SL PRN (02:30)
[2018-07-02 04:44] LABS: BASOPHILS % (AUTO) 0 % (0-10); EOSINOPHILS % (AUTO) 0 % (0-10); HEMATOCRIT 33 % (35-52); HEMOGLOBIN 10.5 G/DL (11.5-16.0); LYMPHOCYTES # (AUTO) 1.6 X 10^3 (1.0-4.0); LYMPHOCYTES % (AUTO) 19 % (12-44); MEAN CORPUSCULAR HEMOGLOBIN 26 PG (25-34); MEAN CORPUSCULAR HGB CONC 32 G/DL (32-36); MEAN CORPUSCULAR VOLUME 81 FL (80-99); MEAN PLATELET VOLUME 10.3 FL (7.4-10.4); MONOCYTES # (AUTO) 1.2 X 10^3 (0.0-1.0); MONOCYTES % (AUTO) 15 % (0-12); NEUTROPHILS # (AUTO) 5.4 X 10^3 (1.8-7.8); NEUTROPHILS % (AUTO) 66 % (42-75); PLATELET COUNT 287 10^3/uL (130-400); RED BLOOD COUNT 4.06 10^6/uL (4.35-5.85); RED CELL DISTRIBUTION WIDTH 16.2 % (10.0-14.5); WHITE BLOOD COUNT 8.3 10^3/uL (4.3-11.0)
[2018-07-02 05:00] LABS: CALCIUM 7.7 MG/DL (8.5-10.1); CREATININE SERUM 3.07 MG/DL (0.60-1.30); MAGNESIUM 1.9 MG/DL (1.8-2.4); PHOSPHORUS 6.1 MG/DL (2.3-4.7); POTASSIUM 4.5 MMOL/L (3.6-5.0)
[2018-07-02 05:02] LABS: CHOLESTEROL 91 MG/DL (< 200); HDL CHOLESTEROL 21 MG/DL (40-60); TRIGLYCERIDES 61 MG/DL (<150); VLDL CHOLESTEROL 12 MG/DL (5-40)
[2018-07-02] MEDS ORDERED: POTASSIUM CL 10MEQ/50ML IVPB 50 ML IV SCH (06:00)
[2018-07-02] MEDS ORDERED: inSUlin ASPART (NovoLOG) 1 UNIT/0.01 ML (CHARGE PER UNIT) SC SCH (06:00)
[2018-07-02] MEDS ORDERED: MAGNESIUM 1 GM/100 ML IVPB 100 ML IV SCH (06:00)
--- NOTE | 2018-07-02 06:56 | Pulmonary Consultation ---
History of Present Illness History of Present Illness Date of Consultation 07/02/18 06:51 Time Seen by Provider: 06:51 Date of Admission History of Present Illness 77yo with hx of CABG, CAD, COPD, CKD presented to ED via EMS secondary to hypoglycemia, and persistent abdominal pain over the last 3 days.no diarrhea or constipation. In ED found to have UTI with sepsis. Troponin found to be 1.06. Denies CP. Cardiology is following. She was also complaining of DANIELLE on admission however now resolved. Pt denies SOB. I am consulted for ICU management. Allergies and Home Medications Allergies Coded Allergies: NKANo Known Allergies (Verified Allergy, Unknown, 04/27/13) Home Medications Aspirin 81 Mg Tablet.dr, 81 MG PO HS, (Reported) Atorvastatin Calcium 80 Mg Tablet, 80 MG PO HS, (Reported) LAST FILLED #60 12-02-17 Clopidogrel Bisulfate 75 Mg Tablet, 75 MG PO HS, (Reported) LAST FILLED #30 12-02-17 Gabapentin 300 Mg Capsule, 300 MG PO BID, (Reported) LAST FILLED #60 01-13-18 Guaifenesin/Dextromethorphan 5 Ml Syrup, 10 ML PO Q4H PRN for COUGH, (Reported) Hydrocodone Bit/Acetaminophen 1 Tab Tab, 1 TAB PO Q4H PRN for PAIN-MILD TO MODERATE Prescribed by: TAWNY GALEANO on 05/02/18 144 Insulin Aspart 100 Unit/1 Ml Susp, 0 UNIT SC ACHS Prescribed by: GIULIANO LAGUERRE on 05/03/18 0857 Metoprolol Succinate 25 Mg Tab.er.24h, 12.5 MG PO DAILY, (Reported) LAST FILLED #30 02-03-18 TAKES 1/2 (25MG) TABLET Pantoprazole Sodium 40 Mg Tablet.dr, 40 MG PO DAILY@0700 Prescribed by: TAWNY GALEANO on 05/02/18 1444 Sertraline HCl 50 Mg Tablet, 25 MG PO HS Prescribed by: TAWNY GALEANO on 05/02/18 144 Sucralfate 1 Gm Tablet, 1 GM PO ACHS Prescribed by: TAWNY GALEANO on 05/02/18 1444 Past Enrsxyp-Tfpuoy-Vbcuma Hx Patient Social History Alcohol Use: Denies Use Recreational Drug Use: No Smoking Status: Current Everyday Smoker Type Used: Cigarettes 2nd Hand Smoke Exposure: Yes Recent Foreign Travel: No Contact w/Someone Who Travel: No Recent Infectious Disease Expo: No Recent Hopitalizations: No Immunizations Up To Date Tetanus Booster (TDap): Unknown PED Vaccines UTD: No Date of Pneumonia Vaccine: Jun 02, 2011 Date of Influenza Vaccine: Apr 02, 2017 Seasonal Allergies Seasonal Allergies: No Past Medical History Surgeries: Yes Appendectomy, Cardiac, CABG, Section, Coronary Stent, Hysterectomy, Oophorectomy, Orthopedic Respiratory: Yes COPD Currently Using CPAP: No Cardiac: Yes Coronary Artery Disease, Heart Attack, High Cholesterol, Irregular Heartbeat Neurological: Yes Neuropathy, Seizure Disorder, TIA : No Reproductive Disorders: No Female Reproductive Disorders: Denies [employer] History: Hysterectomy, Menopausal Sexually Transmitted Disease: No HIV/AIDS: No Genitourinary: Yes Renal Failure Gastrointestinal: Yes Gastroesophageal Reflux, Ulcer Musculoskeletal: Yes Osteoporosis, Arthritis, Chronic Back Pain Endocrine: Yes Diabetes, Insulin dep HEENT: Yes Cataract Loss of Vision: Denies Hearing Impairment: Denies Cancer: No Psychosocial: Yes Anxiety, Depression Integumentary: No Blood Disorders: No Adverse Reaction/Blood Tranf: No Family Medical History FH: suicide FH: uterine cancer 19 MOTHER FHx: diabetes mellitus 19 MOTHER No Pertinent Family Hx Review of Systems Time Seen by Provider: 07:10 Constitutional: Weakness, Malaise; No: Fever, Chills, Sweats, Other Eyes: No: Pain, Vision change, Conjunctivae inflammation, Eyelid inflammation, Other, Redness Respiratory: Cough, Dry, Shortness of breath, SOB with excertion, Wheezing; No : Hemoptysis Cardiovascular: No: Chest Pain, Palpitations, Orthopnea, Paroxysmal Noc. Dyspnea, Edema, Lt Headedness, Other Gastrointestinal: No: Nausea, Vomiting, Abdominal Pain, Diarrhea, Constipation , Melena, Hematochezia, Other Sepsis Event Evaluation Height, Weight, BMI Height: 5'6.00" Weight: 174lbs. 12.8oz. 78.153575sb; 29.0 BMI Method:Stated Exam Exam Vital Signs Date Time Temp Pulse Resp B/P (MAP) Pulse Ox O2 Delivery O2 Flow Rate FiO2 07/02/18 06:16 96 Room Air 07/02/18 06:00 74 8 96/67 (77) 99 Room Air 07/02/18 05:00 73 17 92/72 (79) 97 Room Air 07/02/18 04:00 97 Room Air 07/02/18 04:00 71 14 102/77 (85) 96 Room Air 07/02/18 03:30 70 8 93/58 (70) 99 Room Air 07/02/18 03:00 96.0 07/02/18 03:00 70 17 89/51 (64) 90 Room Air 07/02/18 02:30 70 13 92/60 (71) 92 Room Air 07/02/18 02:11 100 OxyMask 2.00 07/02/18 02:00 69 9 106/70 (82) 97 Room Air 07/02/18 01:45 68 18 92/77 (82) 100 Room Air 07/02/18 01:38 100 OxyMask 2.00 07/02/18 01:30 68 12 92/77 (82) 100 OxyMask 2.00 07/02/18 01:15 67 15 98/71 (80) 100 OxyMask 2.00 07/02/18 01:00 68 15 104/63 (77) 100 OxyMask 2.00 07/02/18 01:00 68 07/02/18 00:45 68 9 104/70 (81) 100 OxyMask 2.00 07/02/18 00:35 69 94 28 07/02/18 00:30 69 17 109/59 (76) 100 OxyMask 2.00 07/02/18 00:18 70 07/02/18 00:15 80 105/65 (78) OxyMask 2.00 07/02/18 00:15 96.0 07/02/18 00:13 76 102/63 (76) OxyMask 2.00 07/02/18 00:10 103 98/67 (77) OxyMask 2.00 07/01/18 23:55 97.1 68 18 101/77 (85) 97 OxyMask 7.00 07/01/18 21:16 100 OxyMask 7.00 07/01/18 20:45 94.6 72 20 93/67 (76) 100 OxyMask 8.00 07/01/18 20:45 100 OxyMask 8.00 I & O 07/02/18 07:00 Intake Total 3900 ml Output Total 300 ml Balance 3600 ml Height & Weight Height: 5'6.00" Weight: 174lbs. 12.8oz. [id number]; 29.0 BMI Method:Stated General Appearance: No Apparent Distress, WD/WN, Chronically ill HEENT: PERRL/EOMI, Normal ENT Inspection, Pharynx Normal Neck: Full Range of Motion, Non Tender, Supple Respiratory: Chest Non Tender, No Accessory Muscle Use, No Respiratory Distress , Decreased Breath Sounds Cardiovascular: Regular Rate, Rhythm, No Edema Capillary Refill: Less Than 3 Seconds Gastrointestinal: normal bowel sounds, soft, tenderness (midepigastric) Neurologic/Psychiatric: Alert (appears confused) Skin: Normal Color, Warm/Dry Lymphatic: No Adenopathy Results Lab Laboratory Tests 07/01/18 21:00 07/01/18 22:00 07/02/18 04:16 Assessment/Plan Assessment/Plan Acute on chronic renal failure with metabolic acidosis and anasarca -Change IVF to bicarb gtt -Give 60mg of IV lasix x 1 -If renal function does not improve over the next 24hours pt will need to be transferred if she would want HD. Hyponatremia secondary to volume overload -Monitor NSTEMI -Cardiology following COPD -SVNS -Currently on RA -Monitor Anemia -Monitor Dementia Pt's overall prognosis is guarded at this time. KAMRYN GREENE DO Jul 02, 2018 06:56
[2018-07-02] MEDS ORDERED: SODIUM BICARBONATE 8.4% VIAL 100 MEQ in 1/2 NS IV SOLUTION 1,000 ML IV SCH (07:00)
[2018-07-02] MEDS ORDERED: FUROSEMIDE 40 MG/4 ML INJ (LASIX) IVP NR (07:27)
[2018-07-02] MEDS ORDERED: SODIUM BICARB 8.4% 50 MEQ/50 ML (ABBOTT) SYR IV NR (07:28)
--- NOTE | 2018-07-02 07:42 | Consultation-Cardiology ---
HPI-Cardiology Cardiology Consultation Date of Consultation 07/02/18 Date of Admission Time Seen by Provider: 07:37 Indication: NSTMI HPI 77 years old lady with history of coronary artery disease, hypertension, chronic renal insufficiency, has been having increasing generalized fatigue and loss of energy. Epigastric pain, denied any chest pain. Came into the emergency room for evaluation where she was noted to have elevated troponin and acute renal failure. Started on IV hydration. Creatinine is still elevated. Denied any active pain. Troponin is still increasing slowly. Myoglobin is elevated. EKG showed nonspecific abnormality. No acute changes. I discussed with her the management plan recommended cardiac catheterization due to her extensive history, patient will need to be done at a tertiary care center with nephrology management Home Medications & Allergies Allergies: Coded Allergies: NKANo Known Allergies (Verified Allergy, Unknown, 04/27/13) Home Medication List Reviewed: Yes NES-Otvjah-Xokwlp Hx Patient Social History Marital Status: Employed/Student: retired Alcohol Use: Denies Use Recreational Drug Use: No Smoking Status: Current Everyday Smoker Type Used: Cigarettes 2nd Hand Smoke Exposure: Yes Recent Foreign Travel: No Recent Infectious Disease Expo: No Recent Hopitalizations: No Physical Abuse Screen: No Sexual Abuse: No Immunizations Up To Date Tetanus Booster (TDap): Unknown Date of Pneumonia Vaccine: Jun 02, 2011 Date of Influenza Vaccine: Apr 02, 2017 Past Medical History past medical history as described below Family Medical History Significant Family History: No Pertinent Family Hx Family History: FH: suicide FH: uterine cancer 19 MOTHER FHx: diabetes mellitus 19 MOTHER Review of Systems Constitutional: see HPI, malaise, weakness EENTM: see HPI, no symptoms reported Respiratory: see HPI; No cough; dyspnea on exertion; No hemoptysis, No orthopnea, No phlegm, No short of breath, No stridor, No wheezing, No other Cardiovascular: see HPI; No chest pain; edema; No Hx of Intervention, No palpitations, No syncope, No vascular heart diseas, No other Gastrointestinal: RUQ, LUQ, see HPI Genitourinary: no symptoms reported, see HPI Musculoskeletal: no symptoms reported, see HPI Skin: no symptoms reported, see HPI Psychiatric/Neurological: No Symptoms Reported, See HPI Reviewed Test Results Reviewed Test Results Lab Laboratory Tests Test 07/01/18 20:54 07/01/18 21:00 07/01/18 21:10 07/01/18 22:00 Range/Units Glucometer 78 70-110 MG/DL White Blood Count 8.8 4.3-11.0 10^3/uL Red Blood Count 4.21 L 4.35-5.85 10^6/uL Hemoglobin 10.9 L 11.5-16.0 G/DL Hematocrit 33 L 35-52 % Mean Corpuscular Volume 79 L 80-99 FL Mean Corpuscular Hemoglobin 26 25-34 PG Mean Corpuscular Hemoglobin Concent 33 32-36 G/DL Red Cell Distribution Width 17.2 H 10.0-14.5 % Platelet Count 350 130-400 10^3/uL Mean Platelet Volume 10.1 7.4-10.4 FL Neutrophils (%) (Auto) 65 42-75 % Lymphocytes (%) (Auto) 21 12-44 % Monocytes (%) (Auto) 13 H 0-12 % Eosinophils (%) (Auto) 1 0-10 % Basophils (%) (Auto) 0 0-10 % Neutrophils # (Auto) 5.8 1.8-7.8 X 10^3 Lymphocytes # (Auto) 1.8 1.0-4.0 X 10^3 Monocytes # (Auto) 1.2 H 0.0-1.0 X 10^3 Eosinophils # (Auto) 0.0 0.0-0.3 10^3/uL Basophils # (Auto) 0.0 0.0-0.1 10^3/uL Prothrombin Time 17.1 H 12.2-14.7 SEC INR Comment 1.4 0.8-1.4 Activated Partial Thromboplast Time 34 24-35 SEC B-Type Natriuretic Peptide 2147.9 H <100.0 PG/ML Urine Color YELLOW Urine Clarity SLIGHTLY CLOUDY Urine pH 5 5-9 Urine Specific [place] 1.020 1.016-1.022 Urine Protein 3+ H NEGATIVE Urine Glucose (UA) NEGATIVE NEGATIVE Urine Ketones NEGATIVE NEGATIVE Urine Nitrite NEGATIVE NEGATIVE Urine Bilirubin 1+ H NEGATIVE Urine Urobilinogen 1 NORMAL MG/DL Urine Leukocyte Esterase 3+ H NEGATIVE Urine RBC (Auto) 2+ H NEGATIVE Urine RBC 2-5 H /HPF Urine WBC 25-50 H /HPF Urine Crystals PRESENT H /LPF Urine Amorphous Sediment MOD LATRELL URATES H /LPF Urine Bacteria FEW H /HPF Urine Casts PRESENT /LPF Urine Hyaline Casts 2-5 H /LPF Urine Mucus SMALL H /LPF Urine Culture Indicated YES Blood Gas Puncture Site RIGHT RADIAL Blood Gas Patient Temperature 94.6 Arterial Blood pH 7.31 *L 7.37-7.43 Arterial Blood Partial Pressure CO2 43 35-45 MMHG Arterial Blood Partial Pressure O2 145 H 79-93 MMHG Arterial Blood HCO3 22 L 23-27 MMOL/L Arterial Blood Total CO2 23.2 21.0-31.0 MMOL/L Arterial Blood Oxygen Saturation 99 94-100 % Arterial Blood Base Excess -3.9 L -2.5-2.5 MMOL/L Benny Test POSITIVE Blood Gas Ventilator Setting NO Blood Gas Inspired Oxygen 8L Sodium Level 120 *L 135-145 MMOL/L Potassium Level 4.7 3.6-5.0 MMOL/L Chloride Level 87 L 98-107 MMOL/L Carbon Dioxide Level 16 L 21-32 MMOL/L Anion Gap 17 H 5-14 MMOL/L Blood Urea Nitrogen 38 H 7-18 MG/DL Creatinine 3.18 H 0.60-1.30 MG/DL Estimat Glomerular Filtration Rate 14 BUN/Creatinine Ratio 12 Glucose Level 86 70-105 MG/DL Lactic Acid Level 1.78 0.50-2.00 MMOL/L Calcium Level 7.7 L 8.5-10.1 MG/DL Corrected Calcium 8.3 L 8.5-10.1 MG/DL Magnesium Level 1.9 1.8-2.4 MG/DL Total Bilirubin 0.6 0.1-1.0 MG/DL Aspartate Amino Transf (AST/SGOT) 314 H 5-34 U/L Alanine Aminotransferase (ALT/SGPT) 161 H 0-55 U/L Alkaline Phosphatase 126 40-136 U/L Myoglobin 350.1 H 10.0-92.0 NG/ML Troponin I 1.03 *H <0.30 NG/ML Total Protein 7.2 6.4-8.2 GM/DL Albumin 3.3 3.2-4.5 GM/DL Lipase 39 8-78 U/L Test 07/02/18 04:16 07/02/18 04:23 Range/Units White Blood Count 8.3 4.3-11.0 10^3/uL Red Blood Count 4.06 L 4.35-5.85 10^6/uL Hemoglobin 10.5 L 11.5-16.0 G/DL Hematocrit 33 L 35-52 % Mean Corpuscular Volume 81 80-99 FL Mean Corpuscular Hemoglobin 26 25-34 PG Mean Corpuscular Hemoglobin Concent 32 32-36 G/DL Red Cell Distribution Width 16.2 H 10.0-14.5 % Platelet Count 287 130-400 10^3/uL Mean Platelet Volume 10.3 7.4-10.4 FL Neutrophils (%) (Auto) 66 42-75 % Lymphocytes (%) (Auto) 19 12-44 % Monocytes (%) (Auto) 15 H 0-12 % Eosinophils (%) (Auto) 0 0-10 % Basophils (%) (Auto) 0 0-10 % Neutrophils # (Auto) 5.4 1.8-7.8 X 10^3 Lymphocytes # (Auto) 1.6 1.0-4.0 X 10^3 Monocytes # (Auto) 1.2 H 0.0-1.0 X 10^3 Eosinophils # (Auto) 0.0 0.0-0.3 10^3/uL Basophils # (Auto) 0.0 0.0-0.1 10^3/uL Sodium Level 121 *L 135-145 MMOL/L Potassium Level 4.5 3.6-5.0 MMOL/L Chloride Level 91 L 98-107 MMOL/L Carbon Dioxide Level 16 L 21-32 MMOL/L Anion Gap 14 5-14 MMOL/L Blood Urea Nitrogen 38 H 7-18 MG/DL Creatinine 3.07 H 0.60-1.30 MG/DL Estimat Glomerular Filtration Rate 15 BUN/Creatinine Ratio 12 Glucose Level 107 H 70-105 MG/DL Calcium Level 7.7 L 8.5-10.1 MG/DL Phosphorus Level 6.1 H 2.3-4.7 MG/DL Magnesium Level 1.9 1.8-2.4 MG/DL Troponin I 1.06 *H <0.30 NG/ML Triglycerides Level 61 <150 MG/DL Cholesterol Level 91 < 200 MG/DL LDL Cholesterol Direct 59 1-129 MG/DL VLDL Cholesterol 12 5-40 MG/DL HDL Cholesterol 21 L 40-60 MG/DL Activated Partial Thromboplast Time 110 H 24-35 SEC Physical Exam Vital Signs Vital Signs - First Documented 07/01/18 07/02/18 20:45 00:35 Temp 94.6 Pulse 72 Resp 20 B/P (MAP) 93/67 (76) Pulse Ox 100 O2 Delivery OxyMask O2 Flow Rate 8.00 FiO2 28 Capillary Refill : Less Than 3 Seconds Height, Weight, BMI Height: 5'6.00" Weight: 174lbs. 12.8oz. 78.877659ox; 29.0 BMI Method:Stated General Appearance: WD/WN, Moderate Distress Eyes: Bilateral Eye Normal Inspection, Bilateral Eye PERRL, Bilateral Eye EOMI HEENT: PERRL/EOMI, TMs Normal, Normal ENT Inspection, Pharynx Normal Neck: Full Range of Motion, Normal Inspection, Non Tender, Supple, Carotid Bruit Respiratory: Chest Non Tender, Normal Breath Sounds, No Accessory Muscle Use, No Respiratory Distress, Crackles Cardiovascular: Regular Rate, Rhythm, No Edema, No Gallop, Normal Peripheral Pulses, Systolic Murmur, Gallop/S3 Gastrointestinal: Normal Bowel Sounds, No Organomegaly, No Pulsatile Mass, Non Tender, Soft Back: Normal Inspection, No CVA Tenderness, No Vertebral Tenderness Extremity: Normal Capillary Refill, Normal Inspection, Normal Range of Motion, Non Tender, No Calf Tenderness, Pedal Edema Neurologic/Psychiatric: Alert, Oriented x3, No Motor/Sensory Deficits, Normal Mood/Affect Skin: Normal Color, Warm/Dry Lymphatic: No Adenopathy A/P-Cardiology Admission Diagnosis Non-ST elevation myocardial infarction Coronary artery disease Acute renal failure Hypotension Assessment/Plan Acute non-ST elevation myocardial infarction, had previous [place] in September 2017 underwent angioplasty to the vein graft to the ramus intermedius. The procedure showed severe proximal LAD disease, proximal occlusion of the ramus intermedius and moderately to severe long stenosis in the proximal portion of the circumflex artery, patent stents in the proximal and distal right coronary artery known to have 3 stents Taxus, moderately to severe stenosis in a small caliber PDA from the RCA, occlusion of the vein graft to the right ramus intermedius underwent balloon angioplasty using 2.012 mm stent at the site of insertion of the graft to the ramus intermedius then Alpine 3 x 38 stent in the proximal and midportion of the graft, patent HUFF to LAD, ejection fraction 50 percent, had another angioplasty in October 2017 for occlusion of the vein graft to the ramus intermedius. Returning with elevated troponin and myoglobin, will need cardiac catheterization, prefer to transfer to tertiary care center, I discussed the management plan with Dr. Batista was accepted the patient. Acute on chronic renal failure, history of chronic kidney disease, appeared to be progressing, might require preparation for possible dialysis. Generalized weakness and frequent fall with fatigue. Electrolyte abnormality. History of hyponatremia which has been persistent Normal left ventricular size with ejection fraction 45-50 percent, anteroseptal hypokinesis to akinesis, mild MR, TR, PA pressure 30-35 mmHg, grade 1 diastolic dysfunction by echo in October 2017. Borderline hypotension, responding to IV fluid Diabetes mellitus, followed and managed by primary care physician Peripheral neuropathy, probably diabetic, no change from baseline Chronic leg weakness, feet discomfort. Has cervical spondylosis, Tobaccoism, educated on smoking cessation History of noncompliance. Clinical Quality Measures DVT/VTE Risk/Contraindication: Risk Factor Score Per Nursin RFS Level Per Nursing on Admit: 4+=Very High ODILIA AGUAYO MD Jul 02, 2018 07:42
--- NOTE | 2018-07-02 07:53 | Diagnostic Imaging Report ---
Indication: Sepsis. Upright portable chest shows cardiomegaly with normal vascularity. The lungs are clear. There is no effusion or pneumothorax. There is no significant change from 07/01/2018. Impression: Stable chest. Dictated by: Dictated on workstation # [id number]
--- NOTE | 2018-07-02 07:54 | Cardiology Discharge Summary ---
Diagnosis/Chief Complaint Date of Admission Jul 01, 2018 at 23:35 Date of Discharge July 02, 2018 Admission Diagnosis Non-ST elevation myocardial infarction Coronary artery disease Acute renal failure Hypotension Discharge Diagnosis non-ST elevation myocardial infarction Coronary artery disease Acute renal failure Hypertension Chief Complaint/HPI Chief Complaint/HPI 77 years old lady admitted with generalized weakness and abdominal pain, has extensive cardiac history which is described below. Had elevation troponin which persisted and increased overnight. Denied any chest pain. She has been having generalized weakness. She is in acute on chronic renal failure, I discussed with the patient the management plan she will need nephrology evaluation. Agreed with transferring to tertiary care center, I discussed the matter with Dr. Batista walks up the patient. Discharge Summary Hospital Course Hospital Course Acute non-ST elevation myocardial infarction, had previous DE in September 2017 underwent angioplasty to the vein graft to the ramus intermedius. The procedure showed severe proximal LAD disease, proximal occlusion of the ramus intermedius and moderately to severe long stenosis in the proximal portion of the circumflex artery, patent stents in the proximal and distal right coronary artery known to have 3 stents Taxus, moderately to severe stenosis in a small caliber PDA from the RCA, occlusion of the vein graft to the right ramus intermedius underwent balloon angioplasty using 2.012 mm stent at the site of insertion of the graft to the ramus intermedius then Alpine 3 x 38 stent in the proximal and midportion of the graft, patent HUFF to LAD, ejection fraction 50 percent, had another angioplasty in October 2017 for occlusion of the vein graft to the ramus intermedius. Returning with elevated troponin and myoglobin, will need cardiac catheterization, prefer to transfer to tertiary care center, I discussed the management plan with Dr. Batista was accepted the patient. Acute on chronic renal failure, history of chronic kidney disease, appeared to be progressing, might require preparation for possible dialysis. Generalized weakness and frequent fall with fatigue. Electrolyte abnormality. History of hyponatremia which has been persistent Normal left ventricular size with ejection fraction 45-50 percent, anteroseptal hypokinesis to akinesis, mild MR, TR, PA pressure 30-35 mmHg, grade 1 diastolic dysfunction by echo in October 2017. Borderline hypotension, responding to IV fluid Diabetes mellitus, followed and managed by primary care physician Peripheral neuropathy, probably diabetic, no change from baseline Chronic leg weakness, feet discomfort. Has cervical spondylosis, Tobaccoism, educated on smoking cessation History of noncompliance. Labs Laboratory Tests 07/01/18 20:54: 07/01/18 21:00: Red Blood Count 4.21L, Hemoglobin 10.9L, Hematocrit 33L, Mean Corpuscular Volume 79L, Red Cell Distribution Width 17.2H, Monocytes (%) (Auto) 13H, Monocytes # (Auto) 1.2H, Prothrombin Time 17.1H, B-Type Natriuretic Peptide 2147.9H 07/01/18 21:10: Urine Protein 3+H, Urine Bilirubin 1+H, Urine Leukocyte Esterase 3+H, Urine RBC (Auto) 2+H, Urine RBC 2-5H, Urine WBC 25-50H, Urine Crystals PRESENTH, Urine Amorphous Sediment MOD LATRELL URATESH, Urine Bacteria FEWH, Urine Hyaline Casts 2- 5H, Urine Mucus SMALLH, Arterial Blood pH 7.31*L, Arterial Blood Partial Pressure O2 145H, Arterial Blood HCO3 22L, Arterial Blood Base Excess -3.9L 07/01/18 22:00: Sodium Level 120*L, Chloride Level 87L, Carbon Dioxide Level 16L, Anion Gap 17H , Blood Urea Nitrogen 38H, Creatinine 3.18H, Calcium Level 7.7L, Corrected Calcium 8.3L, Aspartate Amino Transf (AST/SGOT) 314H, Alanine Aminotransferase ( ALT/SGPT) 161H, Myoglobin 350.1H, Troponin I 1.03*H 07/02/18 04:16: Red Blood Count 4.06L, Hemoglobin 10.5L, Hematocrit 33L, Red Cell Distribution Width 16.2H, Monocytes (%) (Auto) 15H, Monocytes # (Auto) 1.2H, Sodium Level 121 *L, Chloride Level 91L, Carbon Dioxide Level 16L, Blood Urea Nitrogen 38H, Creatinine 3.07H, Glucose Level 107H, Calcium Level 7.7L, Phosphorus Level 6.1H , Troponin I 1.06*H, HDL Cholesterol 21L 07/02/18 04:23: Activated Partial Thromboplast Time 110H Procedures None. Discharge Physical Examination Allergies: Coded Allergies: NKANo Known Allergies (Verified Allergy, Unknown, 04/27/13) Vitals & I&Os Vital Signs Date Time Temp Pulse Resp B/P (MAP) Pulse Ox O2 Delivery O2 Flow Rate FiO2 07/02/18 06:16 96 Room Air 07/02/18 06:00 74 8 96/67 (77) 07/02/18 03:00 96.0 07/02/18 02:11 2.00 07/02/18 00:35 28 General Appearance: Alert, Oriented X3, Cooperative, No Acute Distress HEENT: Atraumatic, PERRLA Respiratory: Clear to Auscultation, Normal Air Movement Cardiovascular: Regular Rate, Normal S1, Normal S2, Other (systolic murmur) Abdominal: Normal Bowel Sounds, Soft, No Tenderness, No Hepatosplenomegaly, No Masses Extremities: No Clubbing, No Cyanosis, Normal Pulses, No Tenderness/Swelling, Other (edema) Skin: No Rashes, No Breakdown, No Significant Lesion Neuro: Normal Gait, Normal Speech, Strength at 5/5 X4 Ext, Normal Tone, Sensation Intact, Cranial Nerves 3-12 NL, Reflexes 2+ Psych/Mental Status: Mental Status NL, Mood NL Discharge Home Medications Reviewed and agree with Discharge Medication list on patient's Discharge Instruction sheet Instructions to Patient/Family Please see electronic discharge instructions given to patient. Clinical Quality Measures Admission Status Admission Status: Observation DVT/VTE Risk/Contraindication: Risk Factor Score Per Nursin RFS Level Per Nursing on Admit: 4+=Very High ODILIA AGUAYO MD Jul 02, 2018 07:54
[2018-07-02] MEDS ORDERED: CLOPIDOGREL 75 MG (PLAVIX) TABLET PO SCH (09:00)
[2018-07-02] MEDS ORDERED: cefTRIAXone 1 GM/NS 50 ML IVPB IV SCH ×2 (09:00)
[2018-07-02] MEDS ORDERED: ASPIRIN E.C. 81 MG (ECOTRIN) TAB PO SCH (09:00)
[2018-07-02] MEDS ORDERED: FLU QUADRIvalent (5+ YOA) 2018-2019 (AFLURIA) 0.5 ML IM ONE (09:15)
--- NOTE | 2018-07-02 10:37 | History & Physical-Hospitalist ---
History of Present Illness HPI/Chief Complaint patient not seen prior to transfer Source: patient Date Seen 07/02/18 Time Seen by a Provider: 00:00 Attending Physician Christine Coto DO PCP Ismael Shultz DO Referring Physician Date of Admission Jul 01, 2018 at 23:35 Home Medications & Allergies Home Medications Reviewed patient Home Medication Reconciliation performed by pharmacy medication reconciliations technician biological health and/or nursing. Patients Allergies have been reviewed. Allergies Allergies Coded Allergies NKANo Known Allergies (Verified Allergy, Unknown, 04/27/13) Past Igjznds-Fecirv-Owpraz Hx Past Med/Social Hx: Reviewed Nursing Past Med/Soc Hx Patient Social History Marrital Status: Employed/Student: retired Alcohol Use: Denies Use Recreational Drug Use: No Smoking Status: Current Everyday Smoker Type Used: Cigarettes 2nd Hand Smoke Exposure: Yes Physical Abuse Screen: No Sexual Abuse: No Recent Foreign Travel: No Contact w/other who traveled: No Recent Hopitalizations: No Recent Infectious Disease Expo: No Immunizations Up To Date Tetanus Booster (TDap): Unknown Pediatric: No Date of Pneumonia Vaccine: Jun 02, 2011 Date of Influenza Vaccine: Apr 02, 2017 Seasonal Allergies Seasonal Allergies: No Past Medical History Surgeries: Appendectomy, Cardiac, CABG, Section, Coronary Stent, Hysterectomy, Oophorectomy, Orthopedic Respiratory: COPD Currently Using CPAP: No Cardiac: Coronary Artery Disease, Heart Attack, High Cholesterol, Irregular Heartbeat Neurological: Neuropathy, Seizure Disorder, TIA : No Reproductive: No Sexually Transmitted Disease: No HIV/AIDS: No Female Reproductive Disorders: Denies Hysterectomy, Menopausal Genitourinary: Renal Failure Gastrointestinal: Gastroesophageal Reflux, Ulcer Musculoskeletal: Osteoporosis, Arthritis, Chronic Back Pain Endocrine: Diabetes, Insulin dep HEENT: Cataract Loss of Vision: Denies Hearing Impairment: Denies Psychosocial: Anxiety, Depression History of Blood Disorders: No Adverse Reaction to Blood Broussard: No Family History FH: suicide FH: uterine cancer 19 MOTHER FHx: diabetes mellitus 19 MOTHER No Pertinent Family Hx Review of Systems ROS-Unable to Obtain: patient not seen prior to transfer Constitutional: other Physical Exam Physical Exam Vital Signs Vital Signs - First Documented 07/01/18 07/02/18 20:45 00:35 Temp 94.6 Pulse 72 Resp 20 B/P (MAP) 93/67 (76) Pulse Ox 100 O2 Delivery OxyMask O2 Flow Rate 8.00 FiO2 28 Capillary Refill : Less Than 3 Seconds Height, Weight, BMI Height: 5'6.00" Weight: 174lbs. 12.8oz. [id number]; 29.0 BMI Method:Stated General Appearance: Other (patient not seen prior to transfer) Results Results/Procedures Labs Laboratory Tests 07/01/18 21:00 07/01/18 22:00 07/02/18 04:16 Patient resulted labs reviewed. Assessment/Plan Admission Diagnosis patient not seen prior to transfer Admission Status: Inpatient Order (span 2 midnights) Reason for Inpatient Admission: patient not seen prior to transfer Clinical Quality Measures DVT/VTE Risk/Contraindication: Risk Factor Score Per Nursin RFS Level Per Nursing on Admit: 4+=Very High CHRISTINE COTO DO Jul 02, 2018 10:37
[2018-07-02] MEDS ORDERED: ATORVASTATIN 40 MG (LIPITOR) TABLET PO SCH (21:00)
--- NOTE | 2018-07-06 10:29 | Physician Query Clarification ---
PQ-Conflicting Diagnosis Admission/Discharge Admission Date: Jul 01, 2018 at 23:35 Discharge Date: Jul 02, 2018 at 10:20 The medical record reflects the following clinical scenario: History/Risk Factors: UTI, NSTEMI acute on chronic renal failure, systolic/diastolic CHF Clinical Findings: T96.4, P72, R20, BP 93/67, WBC 8.8, Lactic 1.78, mid epigastric pain Treatment: IV Piperacillin, IV Ceftriaxone Question: Do you agree with the impression of the Sepsis per Dr. Hoyos. Please document a response below. PHYSICIAN RESPONSE Do you agree w/Consulting Dx?: No Explanation of clincal finding Patient had no fever or leukocytosis. No signs of sepsis In responding to this query, please exercise your independent professional judgment. The purpose of this communication is to more accurately reflect the complexity of your patients condition. The fact that a question is asked does not imply that any particular answer is desired or expected. Thank you for your timely response to this clarification. Requestors name: Stan THIS PHYSICIAN QUERY FORM IS A PERMANENT PART OF THE MEDICAL RECORD STAN MONTGOMERY Jul 06, 2018 10:29 ODILIA AGUAYO MD Jul 06, 2018 11:42
--- NOTE | 2018-07-06 10:33 | Physician Query Clarification ---
PQ-CHF Specificity The medical record reflects the following clinical scenario: History/Risk Factors: systolic/diastolic CHF, NSTEMI, UTI, CAD, acute on chronic renal failure Clinical Findings: BNP 2147.9 Treatment: Lasix 60 mg IV Question: Can you further specify the acuity &/or type of CHF per the clinical indicators above? Please document a response below PHYSICIAN RESPONSE Acuity: Chronic Type: Systolic & Diastolic In responding to this query, please exercise your independent professional judgment. The purpose of this communication is to more accurately reflect the complexity of your patients condition. The fact that a question is asked does not imply that any particular answer is desired or expected. Thank you for your timely response to this clarification. Requestors name: Stan THIS PHYSICIAN QUERY FORM IS A PERMANENT PART OF THE MEDICAL RECORD STAN MONTGOMERY Jul 06, 2018 10:33 ODILIA AGUAYO MD Jul 06, 2018 11:43
== END 2018-07-02 10:20 | disposition short-term general hospital (02) | DRG 281 ==
LOC: EDUNIT# 20:43 → ER 20:45 → ICU 23:35
PROVIDERS: ADMIT Internal Medicine; ATTEND Internal Medicine
DX: I21.4 Non-ST elevation (NSTEMI) myocardial infarction (principal); N30.00 Acute cystitis without hematuria; I50.42 Chronic combined systolic (congestive) and diastolic (congestive) heart failure; I25.10 Atherosclerotic heart disease of native coronary artery without angina pectoris; E87.1 Hypo-osmolality and hyponatremia; N17.9 Acute kidney failure, unspecified; E11.22 Type 2 diabetes mellitus with diabetic chronic kidney disease; E11.42 Type 2 diabetes mellitus with diabetic polyneuropathy; Z79.4 Long term (current) use of insulin; J44.9 Chronic obstructive pulmonary disease, unspecified; G40.909 Epilepsy, unspecified, not intractable, without status epilepticus; K21.9 Gastro-esophageal reflux disease without esophagitis; I44.0 Atrioventricular block, first degree; F03.90 Unspecified dementia, unspecified severity, without behavioral disturbance, psychotic disturbance, mood disturbance, and anxiety; F17.210 Nicotine dependence, cigarettes, uncomplicated; M81.0 Age-related osteoporosis without current pathological fracture; F41.9 Anxiety disorder, unspecified; F32.9 Major depressive disorder, single episode, unspecified; M47.812 Spondylosis without myelopathy or radiculopathy, cervical region; I25.2 Old myocardial infarction; Z95.1 Presence of aortocoronary bypass graft; Z95.5 Presence of coronary angioplasty implant and graft
CPT/HCPCS: 36415; 36600; 51702; 70450; 71045; 72125; 74176; 80048; 80053; 80061; 81000; 82805; 82962; 83605; 83690; 83735; 83874; 83880; 84100; 84484; 85025; 85610; 85730; 87040; 87077; 87081; 87088; 87186; 87804; 93005; 93041; 94640; 96361; 96365; 96375; 99291

== ENCOUNTER 2018-07-12 00:27 | Inpatient (IN) | payer MEDICARE | END 2018-07-12 12:53 | disposition home or self-care (01) | LOC: ER 00:27 → ICU 02:00 ==

== ENCOUNTER 2018-07-15 20:35 | Emergency (ER) | payer MEDICARE ==
[~2018-07-15] VITALS: Ht 157.5 cm; Wt 67.9 kg
[~2018-07-15 20:35] MED LIST changes: +FURO80TA3 PO
--- NOTE | 2018-07-15 22:25 | ED General ---
General Chief Complaint: Glucose Problems Stated Complaint: BLOOD SUGAR 495/FLUCTUATING/CP X 1 DAY Source of Information: Patient, Family (Yady) Exam Limitations: No Limitations History of Present Illness Date Seen by Provider: Jul 15, 2018 Time Seen by Provider: 21:55 Initial Comments Patient presents to ER by private conveyance with her family member and chief complaint that for the past 3 or 4 days her blood sugars of been very labile with highs in the threes and 400s as well as a few lows. She says she's had no cough, chills, rash, abdominal pain or dysuria or diarrhea. She has had some occasional chest pains for the past 3 or 4 days that this heart rate in the middle of her chest last for a few minutes and go away. She's had one today but not having them right now. 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 Zavala and Dr. heart. She has had increased swelling in her legs but does not take any diuretics. She does have a history of chronic renal failure. She's been using a lot of Tylenol [id number] for her headache which is global, 8 out of 10 on throbbing. She does not have a history of headaches. She denies any ears being full, nasal discharge, sore throat. Allergies and Home Medications Allergies Coded Allergies: Jillian Known Allergies (Verified Allergy, Unknown, 07/15/18) Home Medications Aspirin 81 Mg Tablet.dr, 81 MG PO HS, (Reported) Atorvastatin Calcium 80 Mg Tablet, 80 MG PO HS, (Reported) LAST FILLED #60 12-02-18 Clopidogrel Bisulfate 75 Mg Tablet, 75 MG PO HS, (Reported) LAST FILLED #30 12-02-18 Furosemide 80 Mg Tablet, 80 MG PO DAILY Prescribed by: TANA CH on 07/12/18 1012 Gabapentin 300 Mg Capsule, 300 MG PO BID, (Reported) LAST FILLED #60 01-13-18 Guaifenesin/Dextromethorphan 5 Ml Syrup, 10 ML PO Q4H PRN for COUGH, (Reported) Hydrocodone Bit/Acetaminophen 1 Tab Tab, 1 TAB PO Q4H PRN for PAIN-MILD TO MODERATE Prescribed by: TAWNY GALEANO on 05/02/18 1444 Insulin Aspart 100 Unit/1 Ml Susp, 0 UNIT SC ACHS Prescribed by: GIULIANO LAGUERRE on 05/03/18 0857 Metoprolol Succinate 25 Mg Tab.er.24h, 12.5 MG PO DAILY, (Reported) LAST FILLED #30 02-03-18 TAKES 1/2 (25MG) TABLET Sertraline HCl 50 Mg Tablet, 25 MG PO HS Prescribed by: TAWNY GALEANO on 05/02/18 1444 Patient Home Medication List Home Medication List Reviewed: Yes Review of Systems Review of Systems Constitutional: No chills, No malaise, No weakness EENTM: No ear discharge, No ear pain, No eye pain, No nose congestion Respiratory: No cough, No short of breath, No wheezing Cardiovascular: No chest pain, No edema Gastrointestinal: No abdominal pain, No constipation, No diarrhea, No nausea, No vomiting Genitourinary: No discharge, No dysuria Musculoskeletal: No back pain, No joint pain Skin: No pruritus, No rash Psychiatric/Neurological: Headache; Denies Numbness, Denies Paresthesia Past Hoaspay-Gmbvhj-Grouwd Hx Patient Social History Alcohol Use: Denies Use Recreational Drug Use: No Smoking Status: Current Everyday Smoker Type Used: Cigarettes (1 ppd) 2nd Hand Smoke Exposure: Yes Recent Foreign Travel: No Contact w/Someone Who Travel: No Recent Hopitalizations: No Immunizations Up To Date Tetanus Booster (TDap): Unknown PED Vaccines UTD: No Date of Pneumonia Vaccine: Jun 02, 2011 Date of Influenza Vaccine: Apr 11, 2018 Seasonal Allergies Seasonal Allergies: No Past Medical History Surgeries: Yes Appendectomy, Cardiac, CABG, Section, Coronary Stent, Hysterectomy, Oophorectomy, Orthopedic Respiratory: Yes COPD Currently Using CPAP: No Cardiac: Yes Coronary Artery Disease, Heart Attack, High Cholesterol, Irregular Heartbeat Neurological: Yes Neuropathy, Seizure Disorder, TIA Reproductive Disorders: No Female Reproductive Disorders: Denies 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, 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 Sexually Transmitted Disease: No HIV/AIDS: No Genitourinary: Yes Renal Failure Gastrointestinal: Yes Gastroesophageal Reflux, Ulcer Musculoskeletal: Yes Osteoporosis, Arthritis, Chronic Back Pain Endocrine: Yes Diabetes, Insulin dep HEENT: Yes Cataract Loss of Vision: Denies Hearing Impairment: Denies Cancer: No Psychosocial: Yes Anxiety, Depression Integumentary: No Blood Disorders: No Adverse Reaction/Blood Tranf: No Family Medical History FH: suicide FH: uterine cancer 19 MOTHER FHx: diabetes mellitus 19 MOTHER No Pertinent Family Hx Physical Exam Vital Signs Vital Signs - First Documented 07/15/18 21:52 Temp 96.9 Pulse 86 Resp 16 B/P (MAP) 131/78 (95) Pulse Ox 98 Capillary Refill : Height, Weight, BMI Height: 5'2.00" Weight: 149lbs. 12.8oz. [id number]; 29.0 BMI Method:Estimated General Appearance: No Apparent Distress, Cachetic Eyes: Bilateral Eye Normal Inspection, Bilateral Eye PERRL, Bilateral Eye EOMI HEENT: PERRL/EOMI, TMs Normal (bilateral TMs occluded by intra-canal cerumen), Normal ENT Inspection, Pharynx Normal; No Moist Mucous Membranes (mildly dry) Neck: Full Range of Motion, Non Tender Respiratory: Chest Non Tender, No Accessory Muscle Use, No Respiratory Distress , Crackles (bilateral bases) Cardiovascular: Regular Rate, Rhythm, Normal Peripheral Pulses, Other (edema bilateral lower extremities up to the knees 1+ pitting) Gastrointestinal: Normal Bowel Sounds, Non Tender, Soft Extremity: Normal Capillary Refill, Normal Inspection Neurologic/Psychiatric: Alert, Oriented x3 Skin: Normal Color, Warm/Dry Progress/Results/Core Measures Suspected Sepsis SIRS Temperature: Pulse: Respiratory Rate: Laboratory Tests 07/15/18 22:25: White Blood Count 4.9 Blood Pressure / Mean: Laboratory Tests 07/15/18 22:25: Creatinine 2.27H, Platelet Count 259, Total Bilirubin 0.6 Results/Orders Lab Results Laboratory Tests Test 07/15/18 22:01 07/15/18 22:25 07/15/18 23:49 07/16/18 00:36 Range/Units Glucometer 291 H 70-110 MG/DL White Blood Count 4.9 4.3-11.0 10^3/uL Red Blood Count 3.97 L 4.35-5.85 10^6/uL Hemoglobin 10.0 L 11.5-16.0 G/DL Hematocrit 33 L 35-52 % Mean Corpuscular Volume 82 80-99 FL Mean Corpuscular Hemoglobin 25 25-34 PG Mean Corpuscular Hemoglobin Concent 31 L 32-36 G/DL Red Cell Distribution Width 16.5 H 10.0-14.5 % Platelet Count 259 130-400 10^3/uL Mean Platelet Volume 10.9 H 7.4-10.4 FL Neutrophils (%) (Auto) 64 42-75 % Lymphocytes (%) (Auto) 18 12-44 % Monocytes (%) (Auto) 14 H 0-12 % Eosinophils (%) (Auto) 3 0-10 % Basophils (%) (Auto) 1 0-10 % Neutrophils # (Auto) 3.2 1.8-7.8 X 10^3 Lymphocytes # (Auto) 0.9 L 1.0-4.0 X 10^3 Monocytes # (Auto) 0.7 0.0-1.0 X 10^3 Eosinophils # (Auto) 0.1 0.0-0.3 10^3/uL Basophils # (Auto) 0.1 0.0-0.1 10^3/uL Sodium Level 136 135-145 MMOL/L Potassium Level 3.5 L 3.6-5.0 MMOL/L Chloride Level 91 L 98-107 MMOL/L Carbon Dioxide Level 29 21-32 MMOL/L Anion Gap 16 H 5-14 MMOL/L Blood Urea Nitrogen 44 H 7-18 MG/DL Creatinine 2.27 H 0.60-1.30 MG/DL Estimat Glomerular Filtration Rate 21 BUN/Creatinine Ratio 19 Glucose Level 272 H 70-105 MG/DL Calcium Level 9.0 8.5-10.1 MG/DL Corrected Calcium 9.0 8.5-10.1 MG/DL Magnesium Level 2.0 1.8-2.4 MG/DL Total Bilirubin 0.6 0.1-1.0 MG/DL Aspartate Amino Transf (AST/SGOT) 26 5-34 U/L Alanine Aminotransferase (ALT/SGPT) 20 0-55 U/L Alkaline Phosphatase 76 40-136 U/L Troponin I 0.063 0.052 <0.028 NG/ML C-Reactive Protein High Sensitivity 2.63 H 0.00-0.50 MG/DL B-Type Natriuretic Peptide 3647.2 H <100.0 PG/ML Total Protein 8.0 6.4-8.2 GM/DL Albumin 4.0 3.2-4.5 GM/DL Urine Color YELLOW Urine Clarity CLEAR Urine pH 7 5-9 Urine Specific [place] 1.010 L 1.016-1.022 Urine Protein 3+ H NEGATIVE Urine Glucose (UA) 3+ H NEGATIVE Urine Ketones NEGATIVE NEGATIVE Urine Nitrite NEGATIVE NEGATIVE Urine Bilirubin NEGATIVE NEGATIVE Urine Urobilinogen NORMAL NORMAL MG/DL Urine Leukocyte Esterase 2+ H NEGATIVE Urine RBC (Auto) 2+ H NEGATIVE Urine RBC 5-10 H /HPF Urine WBC 10-25 H /HPF Urine Squamous Epithelial Cells 0-2 /HPF Urine Crystals NONE /LPF Urine Bacteria FEW H /HPF Urine Casts NONE /LPF Urine Mucus NEGATIVE /LPF Urine Culture Indicated YES My Orders Orders - JUAN C DUKES BNP (07/15/18 22:19) Cbc With Automated Diff (07/15/18 22:19) Comprehensive Metabolic Panel (07/15/18 22:19) Hs C Reactive Protein (07/15/18 22:19) Magnesium (07/15/18 22:19) Ua Culture If Indicated (07/15/18 22:19) Chest Pa/Lat (2 View) (07/15/18 22:19) Accucheck Stat ONCE (07/15/18 22:19) Hydrocodone/Apap 5/325 Tablet (Lortab 5 (07/15/18 22:30) Ekg Tracing (07/15/18 22:25) Continuous Ekg Monitoring (07/15/18 22:25) Troponin I (07/15/18 22:25) Insulin (Regular) Human (Humulin R (Per (07/15/18 23:45) Furosemide Injection (Lasix Injection) (07/15/18 23:45) Potassium Cl 10meq/50ml Ivpb (Kcl 10 Meq (07/15/18 23:45) Potassium Chloride (Tablet) (K Dur Table (07/15/18 23:45) Troponin I (07/16/18 00:20) Saline Lock/Iv-Start (07/16/18 00:03) Ns Iv 500 Ml (Sodium Chloride 0.9%) (07/16/18 00:03) Ns Iv 500 Ml (Sodium Chloride 0.9%) (07/16/18 00:00) Urine Culture (07/15/18 23:49) Accucheck Stat ONCE (07/16/18 00:16) Cephalexin Capsule (Keflex Capsule) (07/16/18 01:45) Medications Given in ED Current Medications Medications Dose Ordered Sig/Roman Route Start Time Stop Time Status Last Admin Dose Admin Acetaminophen/ Hydrocodone Bitart 1 tab ONCE ONCE PO 07/15/18 22:30 07/15/18 22:31 DC 07/15/18 22:29 1 TAB Furosemide 80 mg ONCE ONCE IVP 07/15/18 23:45 07/15/18 23:46 DC 07/15/18 23:52 80 MG Insulin Human Regular 10 unit ONCE ONCE SC 07/15/18 23:45 07/15/18 23:46 DC 07/15/18 23:52 10 UNIT Potassium Chloride 20 meq ONCE ONCE PO 07/15/18 23:45 07/15/18 23:46 DC 07/15/18 23:52 20 MEQ Potassium Chloride 50 ml @ 50 mls/hr ONCE ONCE IV 07/15/18 23:45 07/16/18 00:44 DC 07/15/18 23:53 50 MLS/HR Sodium Chloride 500 ml @ 0 mls/hr Q0M ONCE IV 07/16/18 00:03 07/16/18 00:05 DC 07/16/18 00:32 0 MLS/HR Vital Signs/I&O 07/15/18 21:52 Temp 96.9 Pulse 86 Resp 16 B/P (MAP) 131/78 (95) Pulse Ox 98 Capillary Refill : Point of Care Testing Finger Stick Blood Glucose: 291 Progress Note #1: Time: 23:17 Progress Note Patient comes in with a headache, malaise and labile sugars. We'll obtain labs, chest x-ray and urinalysis. Her increased pitting edema of the lower extremities , history of significant chronic kidney disease with a creatinine in the baseline of 2.5-3 makes fluid overload possible specially given her crackles auscultated bilaterally. We will obtain 2 view chest x-ray, BNP and hold off IV fluids. She is not tachycardic but she is on a low-dose 12.5 mg of metoprolol. Otherwise her vital signs are aseptic. We'll give her a hydrocodone 5 x 325 for her headache. Patient was recently discharged from here for chest pain and wheezing. A few days before that she was discharged from [facility] for a non-ST elevation GA, congestive heart failure and renal insufficiency. She has diabetes, tobaccoism and wheelchair bound. At that time the patient was admitting to headaches dizziness and fainting. Influenza was negative. The patient is on Lasix 80 mg daily and during her stay here she was given 160 mg IV Lasix for her shortness of breath. Patient does not have a pre planning advisor she follows with. At that time her BNP was 3400. Today her creatinine and hemoglobin are stable however her BNP is back to 3600. Her headache is only marginally better with the hydrocodone so we'll give her another tablet. I discussed and offered a stay for fluid overload to get some more IV Lasix on board as the patient has not been taking her Lasix fastidiously at home. She's not had any doses today and her daughter says sometimes she throws her pills like she thinks she's also supposed to be on Lasix. Her daughter is staying with her this weekend and then the patient's to go into [facility] Wednesday so it seems like we can assure that she be getting her medicines. I offered her observation stay and she's declined it so instead were going to do 80 mg IV Lasix as well as some potassium and she is going to go home with her daughter to closely monitor her medications and follow -up with Dr. Siegel on Wednesday at her scheduled appointment and then to [facility] for rehabilitation. We have given strict return precautions. Delta troponin. The patient is still chest pain-free. Progress Note #2: Time: 01:44 Progress Note Second troponin went down from 0.06-0.05. Patient still wants to go home and is declining a stay. We've given her some Lasix and her daughter has instructions to monitor her medicines over the weekend. She has a follow-up Wednesday morning with Dr. Siegel. We've given her return precautions. We'll also give her a dose of Keflex before she goes and a prescription for Keflex 250 mg twice a day for the next week. ECG Initial ECG Impression Date: Jul 15, 2018 Initial ECG Impression Time: 22:12 Initial ECG Rate: 86 Initial ECG Rhythm: Normal Sinus Initial ECG Intervals: QT (474) Initial ECG Impression: Normal Initial ECG Comparisson: Unchanged Comment Right sided axis deviation. No evidence of ST elevation or depression. Diagnostic Imaging Diagonstic Imaging: Xray Plain Films/CT/US/NM/MRI: chest (2 view) Comments Mild pleural effusion bilateral. Mild pulmonary congestion. Reviewed: Reviewed by Me Diagonstic Imaging: Xray Plain Films/CT/US/NM/MRI: chest (1v) Comments Repeat chest x-rays no evidence pneumothorax and the new interval central line in the right IJ with distal tip in the proximal superior vena cava. Reviewed: Reviewed by Me Departure Impression Primary Impression: Chronic kidney disease, stage IV (severe) Additional Impressions: Congestive heart failure Qualified Codes: I50.9 - Heart failure, unspecified Noncompliance with medication regimen Chest pain Qualified Codes: R07.9 - Chest pain, unspecified UTI (urinary tract infection) Qualified Codes: N30.00 - Acute cystitis without hematuria Disposition: HOME, SELF-CARE Condition: Stable Departure-Patient Inst. Decision time for Depature: 01:45 Referrals: MERRICK SIEGEL DO (PCP/Family) Primary Care Physician Patient Instructions: Acute Cystitis (DC) Add. Discharge Instructions: Make sure you're taking your Lasix as prescribed. Take your potassium as well as prescribed. 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 If you have difficulty breathing, chest pain or other worrisome symptoms return to the ER for further evaluation. Make she keep your follow-up appointment on Wednesday with Dr. Siegel. All discharge instructions reviewed with patient and/or family. Voiced understanding. Scripts Cephalexin (Cephalexin) 250 Mg Capsule 250 MG PO BID for 7 Days, #14 CAP 0 Refills Prov: JUAN C DUKES 07/16/18 Copy Copies To 1: MERRICK SIEGEL TITUS J Jul 15, 2018 22:25
[2018-07-15] MEDS ORDERED: HYDROcodone/APAP 5 MG/325 MG (LORTAB) TAB PO ONE (22:30)
[2018-07-15 22:31] LABS: BASOPHILS # (AUTO) 0.1 10^3/uL (0.0-0.1); BASOPHILS % (AUTO) 1 % (0-10); EOSINOPHILS # (AUTO) 0.1 10^3/uL (0.0-0.3); EOSINOPHILS % (AUTO) 3 % (0-10); HEMATOCRIT 33 % (35-52); LYMPHOCYTES # (AUTO) 0.9 X 10^3 (1.0-4.0); LYMPHOCYTES % (AUTO) 18 % (12-44); MEAN CORPUSCULAR HEMOGLOBIN 25 PG (25-34); MEAN CORPUSCULAR HGB CONC 31 G/DL (32-36); MEAN CORPUSCULAR VOLUME 82 FL (80-99); MEAN PLATELET VOLUME 10.9 FL (7.4-10.4); MONOCYTES # (AUTO) 0.7 X 10^3 (0.0-1.0); MONOCYTES % (AUTO) 14 % (0-12); NEUTROPHILS # (AUTO) 3.2 X 10^3 (1.8-7.8); NEUTROPHILS % (AUTO) 64 % (42-75); PLATELET COUNT 259 10^3/uL (130-400); RED BLOOD COUNT 3.97 10^6/uL (4.35-5.85); RED CELL DISTRIBUTION WIDTH 16.5 % (10.0-14.5); WHITE BLOOD COUNT 4.9 10^3/uL (4.3-11.0)
[2018-07-15 22:48] LABS: BILIRUBIN,TOTAL 0.6 MG/DL (0.1-1.0); CREATININE SERUM 2.27 MG/DL (0.60-1.30); POTASSIUM 3.5 MMOL/L (3.6-5.0)
--- NOTE | 2018-07-15 23:06 | NUR ---
Report taken from Alissa Rose RN.
[2018-07-15] MEDS ORDERED: POTASSIUM CL 10MEQ/50ML IVPB 50 ML IV ONE (23:45)
[2018-07-15] MEDS ORDERED: KCL 20 MEQ TAB (K-DUR) PO ONE (23:45)
[2018-07-15] MEDS ORDERED: inSUlin (REGULAR) HUMAN 1 UNIT/0.01 ML (CHARGE PER UNIT) SC ONE (23:45)
[2018-07-15] MEDS ORDERED: FUROSEMIDE 40 MG/4 ML INJ (LASIX) IVP ONE (23:45)
[2018-07-15 23:59] LABS: BILIRUBIN,URINE NEGATIVE (NEGATIVE); CLARITY,URINE CLEAR; COLOR,URINE YELLOW; GLUCOSE, URINE (UA) 3+ (NEGATIVE); KETONES,URINE NEGATIVE (NEGATIVE); LEUKOCYTE ESTERASE ,URINE 2+ (NEGATIVE); NITRITE,URINE NEGATIVE (NEGATIVE); PH,URINE 7 (5-9); PROTEIN,URINE 3+ (NEGATIVE); UROBILINOGEN,URINE NORMAL (NORMAL)
[2018-07-16] MEDS ORDERED: NS IV 500 ML 500 ML ONE
[2018-07-16] MEDS ORDERED: NS IV 500 ML 500 ML IV ONE (00:03)
[2018-07-16 00:11] LABS: BACTERIA,URINE FEW /HPF; SQUAMOUS EPITHELIAL CELL,UR 0-2 /HPF
[2018-07-16] MEDS ORDERED: CEPHALEXIN 250 MG (KEFLEX) CAP PO ONE (01:45)
[2018-07-16 01:47] VITALS: BP 125/68
[2018-07-16] MEDS ORDERED: CEPH250C PO (01:47)
--- NOTE | 2018-07-16 06:55 | Diagnostic Imaging Report ---
EXAMINATION: CHEST (PA AND LATERAL) CLINICAL INDICATION: 77-year-old female, wheezing. COMPARISON: July 12, 2018. FINDINGS: There are median sternotomy wires. Stable overall appearance of the cardiomediastinal silhouette accounting for differences in patient positioning. There is nonspecific bibasilar airspace consolidation. There is a small to moderate left and a small right pleural effusion. There are degenerative changes of the spine. IMPRESSION: 1. Nonspecific bibasilar airspace consolidation, left greater than right with small to moderate left and small right pleural effusion. The right lower lobe airspace consolidation and effusion may be mildly improved since July 12, 2018. Dictated by: Dictated on workstation # [id number]
== END 2018-07-16 02:05 | disposition home or self-care (01) ==
LOC: EDUNIT# 20:35 → ER 20:36
DX: E11.22 Type 2 diabetes mellitus with diabetic chronic kidney disease (principal); N18.4 Chronic kidney disease, stage 4 (severe); I50.9 Heart failure, unspecified; R07.9 Chest pain, unspecified; N39.0 Urinary tract infection, site not specified; J44.9 Chronic obstructive pulmonary disease, unspecified; I25.10 Atherosclerotic heart disease of native coronary artery without angina pectoris; I25.2 Old myocardial infarction; E78.00 Pure hypercholesterolemia, unspecified; G40.909 Epilepsy, unspecified, not intractable, without status epilepticus; K21.9 Gastro-esophageal reflux disease without esophagitis; M81.0 Age-related osteoporosis without current pathological fracture; F41.9 Anxiety disorder, unspecified; F32.9 Major depressive disorder, single episode, unspecified; F17.210 Nicotine dependence, cigarettes, uncomplicated; Z90.49 Acquired absence of other specified parts of digestive tract; Z86.73 Personal history of transient ischemic attack (TIA), and cerebral infarction without residual deficits; Z80.49 Family history of malignant neoplasm of other genital organs; Z87.19 Personal history of other diseases of the digestive system; Z98.890 Other specified postprocedural states; Z90.710 Acquired absence of both cervix and uterus; Z95.5 Presence of coronary angioplasty implant and graft; Z95.1 Presence of aortocoronary bypass graft; Z79.82 Long term (current) use of aspirin; Z79.4 Long term (current) use of insulin; Z79.02 Long term (current) use of antithrombotics/antiplatelets
CPT/HCPCS: 36415; 71046; 80053; 81000; 82962; 83735; 83880; 84484; 85025; 86141; 87088; 93005

== ENCOUNTER 2018-08-04 09:34 | Inpatient (IN) | payer MEDICARE ==
[~2018-08-04] VITALS: Ht 170.2 cm; Wt 78.0 kg
[~2018-08-04 09:34] MED LIST changes: +CEPH250C PO
--- NOTE | 2018-08-04 10:26 | NUR ---
SEE LIST FOR CURRENT MEDS
[2018-08-04 10:29] LABS: BASOPHILS % (AUTO) 1 % (0-10); EOSINOPHILS # (AUTO) 0.1 10^3/uL (0.0-0.3); EOSINOPHILS % (AUTO) 1 % (0-10); HEMATOCRIT 31 % (35-52); HEMOGLOBIN 9.7 G/DL (11.5-16.0); LYMPHOCYTES # (AUTO) 0.8 X 10^3 (1.0-4.0); LYMPHOCYTES % (AUTO) 13 % (12-44); MEAN CORPUSCULAR HEMOGLOBIN 25 PG (25-34); MEAN CORPUSCULAR HGB CONC 31 G/DL (32-36); MEAN CORPUSCULAR VOLUME 81 FL (80-99); MEAN PLATELET VOLUME 10.5 FL (7.4-10.4); MONOCYTES # (AUTO) 0.6 X 10^3 (0.0-1.0); MONOCYTES % (AUTO) 9 % (0-12); NEUTROPHILS % (AUTO) 76 % (42-75); PLATELET COUNT 260 10^3/uL (130-400); RED CELL DISTRIBUTION WIDTH 17.7 % (10.0-14.5); WHITE BLOOD COUNT 6.5 10^3/uL (4.3-11.0)
[2018-08-04] MEDS ORDERED: RT-ALBUTEROL/IPRATROPIUM 3 ML (DUONEB) VIAL INH ONE (10:30)
[2018-08-04 10:48] LABS: ALBUMIN 3.4 GM/DL (3.2-4.5); BILIRUBIN,TOTAL 0.4 MG/DL (0.1-1.0); CALCIUM 8.9 MG/DL (8.5-10.1); CREATININE SERUM 2.44 MG/DL (0.60-1.30); MAGNESIUM 2.1 MG/DL (1.8-2.4); POTASSIUM 4.6 MMOL/L (3.6-5.0); TOTAL PROTEIN 7.5 GM/DL (6.4-8.2)
[2018-08-04 11:00] LABS: BILIRUBIN,URINE NEGATIVE (NEGATIVE); CLARITY,URINE CLEAR; COLOR,URINE YELLOW; GLUCOSE, URINE (UA) NEGATIVE (NEGATIVE); KETONES,URINE NEGATIVE (NEGATIVE); LEUKOCYTE ESTERASE ,URINE 2+ (NEGATIVE); NITRITE,URINE NEGATIVE (NEGATIVE); PH,URINE 6 (5-9); PROTEIN,URINE 2+ (NEGATIVE); UROBILINOGEN,URINE NORMAL (NORMAL)
--- NOTE | 2018-08-04 11:04 | Diagnostic Imaging Report ---
INDICATION: Shortness of breath COMPARISON: 07/15/2018 FINDINGS: Single view of the chest demonstrate cardiac enlargement with stable central vascular congestion. There are enlarging bilateral pleural effusions right greater than left. There is dependent atelectasis. There is no pneumothorax. Sternal wires are midline. Osseous structures stable. IMPRESSION: 1. Cardiac enlargement with central vascular congestion similar in appearance to prior exam. 2. Increasing bilateral pleural effusions. Dictated by: Dictated on workstation # [id number]
[2018-08-04 11:13] LABS: BACTERIA,URINE TRACE /HPF; HYALINE CASTS, URINE 0-2 /LPF; SQUAMOUS EPITHELIAL CELL,UR RARE /HPF
[2018-08-04] MEDS ORDERED: HYDROcodone/APAP 5 MG/325 MG (LORTAB) TAB PO ONE (11:15)
--- NOTE | 2018-08-04 12:11 | ED General ---
General Chief Complaint: Cardiac/General Problems Stated Complaint: LOWER BACK PAIN Nursing Triage Note: PT SENT TO ED BY DR MÁRQUEZ OFFICE W BNP [id number]. REPORTED BY DR SIEGEL. PT ARRIVED FROM [place]/C FROM [place]. PT HAS 4+ PEDAL EDEMA UP TO HIPS, REDNESS NOTED IN LOWER EXT. PT HAS PAIN ALL OVER CLEVE IN LOWER BACK AREA. PT STATES WAS SEEN BY DR SIEGEL IN [place] PAST COUPLE DAYS Nursing Sepsis Screen: No Definite Risk Source of Information: Patient, Old Records, Other (Dr. Siegel) Exam Limitations: No Limitations History of Present Illness Date Seen by Provider: Aug 04, 2018 Time Seen by Provider: 09:52 Initial Comments This 77-year-old woman presents to the emergency room with complaints of worsening lower extremity edema. The edema extends up to her groin. Edema of the lower legs is firm and woody. She has blotchy erythema to the lower legs and feet as well. Patient states this is chronic but worsening. She has been afebrile. She also complains of wheezing and shortness of breath. Outpatient labs obtained by Dr. Siegel revealed a markedly elevated BNP. After discussion with Dr. Francois, Dr. Siegel sent her to the emergency room from the longterm for further evaluation and probable admission. Allergies and Home Medications Allergies Coded Allergies: NKANo Known Allergies (Verified Allergy, Unknown, 07/15/18) Home Medications Acetaminophen 500 Mg Tablet, 1,000 MG PO Q8H PRN for PAIN-MODERATE, (Reported) TAKES 2 (500MG) TABLETS Aspirin 81 Mg Tablet.dr, 81 MG PO HS, (Reported) Atorvastatin Calcium 80 Mg Tablet, 80 MG PO HS, (Reported) Clopidogrel Bisulfate 75 Mg Tablet, 75 MG PO HS, (Reported) Furosemide 80 Mg Tablet, 80 MG PO DAILY, (Reported) Gabapentin 300 Mg Capsule, 300 MG PO BID, (Reported) Guaifenesin/Dextromethorphan 5 Ml Syrup, 10 ML PO Q4H PRN for COUGH, (Reported) Hydrocodone/Acetaminophen 1 Each Tablet, 1 TAB PO TID, (Reported) Insulin Aspart 300 Units/3 Ml Solution, SC ACHS, (Reported) 0-200 = 0 UNITS 201-250 = 3 UNITS 251-300 = 5 UNITS 301-350 = 7 UNITS 351- 400 = 9 UNITS >400 OR <60 CALL PHYSICIAN Insulin Degludec 100 Unit/1 Ml Insuln.pen, 13 UNITS SC DAILY, (Reported) Metoprolol Tartrate 25 Mg Tablet, 12.5 MG PO DAILY, (Reported) TAKES 1/2 (25MG) TABLET Sertraline HCl 50 Mg Tablet, 25 MG PO HS, (Reported) TAKES 1/2 (50MG) TABLET Patient Home Medication List Home Medication List Reviewed: Yes Review of Systems Review of Systems Constitutional: no symptoms reported EENTM: no symptoms reported Respiratory: see HPI Cardiovascular: see HPI Gastrointestinal: no symptoms reported Genitourinary: no symptoms reported : No Musculoskeletal: see HPI Skin: see HPI Psychiatric/Neurological: No Symptoms Reported Hematologic/Lymphatic: No Symptoms Reported Immunological/Allergic: no symptoms reported Past Vpbikbz-Wwupiw-Ttjaie Hx Past Med/Social Hx: Reviewed and Corrections made Patient Social History Type Used: Cigarettes 2nd Hand Smoke Exposure: No Recent Foreign Travel: No Contact w/Someone Who Travel: No Recent Infectious Disease Expo: No Recent Hopitalizations: No Immunizations Up To Date Tetanus Booster (TDap): Unknown PED Vaccines UTD: No Date of Pneumonia Vaccine: Jun 02, 2011 Date of Influenza Vaccine: Apr 11, 2018 Seasonal Allergies Seasonal Allergies: No Past Medical History Surgeries: Yes Appendectomy, Cardiac, CABG, Section, Coronary Stent, Hysterectomy, Oophorectomy, Orthopedic Respiratory: Yes COPD Currently Using CPAP: No Cardiac: Yes Chronic Edema/Swelling, Coronary Artery Disease, Heart Attack, High Cholesterol , Irregular Heartbeat Neurological: Yes Neuropathy, Seizure Disorder, TIA Reproductive Disorders: No Female Reproductive Disorders: Denies 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: Hysterectomy, Menopausal Sexually Transmitted Disease: No HIV/AIDS: No Genitourinary: Yes Renal Failure Gastrointestinal: Yes Gastroesophageal Reflux, Ulcer Musculoskeletal: Yes Osteoporosis, Arthritis, Chronic Back Pain Endocrine: Yes Diabetes, Insulin dep HEENT: Yes Cataract Loss of Vision: Denies Hearing Impairment: Denies Cancer: No Psychosocial: Yes Anxiety, Depression Integumentary: No Blood Disorders: No Adverse Reaction/Blood Tranf: No Family Medical History FH: suicide FH: uterine cancer 19 MOTHER FHx: diabetes mellitus 19 MOTHER No Pertinent Family Hx Physical Exam Vital Signs Vital Signs - First Documented 08/04/18 08/04/18 09:40 11:09 Temp 97.4 Pulse 87 Resp 18 B/P (MAP) 122/55 (77) Pulse Ox 96 O2 Delivery Room Air Capillary Refill : Less Than 3 Seconds Height, Weight, BMI Height: 5'7.00" Weight: 154lbs. 12.8oz. [id number]; 29.0 BMI Method:Stated General Appearance: No Apparent Distress, WD/WN HEENT: PERRL/EOMI, Normal ENT Inspection Neck: Normal Inspection Respiratory: No Accessory Muscle Use, No Respiratory Distress, Decreased Breath Sounds (Diminished in the bases), Wheezing Cardiovascular: Regular Rate, Rhythm, No Murmur, Other (Marked lower extremity edema extending up to the groin) Gastrointestinal: Normal Bowel Sounds, Non Tender, Soft Extremity: Pedal Edema, Swelling, Other (Marked lower extremity edema with blotchy erythema of the lower legs and feet) Neurologic/Psychiatric: Alert, Oriented x3, No Motor/Sensory Deficits, Normal Mood/Affect, inserter operator II-XII Norm as Tested Skin: Normal Color, Warm/Dry, Rash (See above) Progress/Results/Core Measures Suspected Sepsis Recent Fever Within 48 Hours: No Infection Criteria Present: None New/Unexplained Altered Menta: No Sepsis Screen: No Definite Risk SIRS Temperature:97.4 Pulse: 87 Respiratory Rate: 18 Laboratory Tests 08/04/18 10:00: White Blood Count 6.5 Blood Pressure 122 /55 Mean: 77 Laboratory Tests 08/04/18 10:00: Creatinine 2.44H, Platelet Count 260, Total Bilirubin 0.4 Results/Orders Lab Results Laboratory Tests Test 08/04/18 10:00 08/04/18 10:15 08/04/18 10:30 08/04/18 17:22 Range/Units White Blood Count 6.5 4.3-11.0 10^3/uL Red Blood Count 3.82 L 4.35-5.85 10^6/uL Hemoglobin 9.7 L 11.5-16.0 G/DL Hematocrit 31 L 35-52 % Mean Corpuscular Volume 81 80-99 FL Mean Corpuscular Hemoglobin 25 25-34 PG Mean Corpuscular Hemoglobin Concent 31 L 32-36 G/DL Red Cell Distribution Width 17.7 H 10.0-14.5 % Platelet Count 260 130-400 10^3/uL Mean Platelet Volume 10.5 H 7.4-10.4 FL Neutrophils (%) (Auto) 76 H 42-75 % Lymphocytes (%) (Auto) 13 12-44 % Monocytes (%) (Auto) 9 0-12 % Eosinophils (%) (Auto) 1 0-10 % Basophils (%) (Auto) 1 0-10 % Neutrophils # (Auto) 5.0 1.8-7.8 X 10^3 Lymphocytes # (Auto) 0.8 L 1.0-4.0 X 10^3 Monocytes # (Auto) 0.6 0.0-1.0 X 10^3 Eosinophils # (Auto) 0.1 0.0-0.3 10^3/uL Basophils # (Auto) 0.0 0.0-0.1 10^3/uL Sodium Level 134 L 135-145 MMOL/L Potassium Level 4.6 3.6-5.0 MMOL/L Chloride Level 99 98-107 MMOL/L Carbon Dioxide Level 20 L 21-32 MMOL/L Anion Gap 15 H 5-14 MMOL/L Blood Urea Nitrogen 49 H 7-18 MG/DL Creatinine 2.44 H 0.60-1.30 MG/DL Estimat Glomerular Filtration Rate 19 BUN/Creatinine Ratio 20 Glucose Level 206 H 70-105 MG/DL Calcium Level 8.9 8.5-10.1 MG/DL Corrected Calcium 9.4 8.5-10.1 MG/DL Magnesium Level 2.1 1.8-2.4 MG/DL Total Bilirubin 0.4 0.1-1.0 MG/DL Aspartate Amino Transf (AST/SGOT) 24 5-34 U/L Alanine Aminotransferase (ALT/SGPT) 17 0-55 U/L Alkaline Phosphatase 115 40-136 U/L C-Reactive Protein High Sensitivity 1.29 H 0.00-0.50 MG/DL B-Type Natriuretic Peptide 2163.4 H <100.0 PG/ML Total Protein 7.5 6.4-8.2 GM/DL Albumin 3.4 3.2-4.5 GM/DL Erythrocyte Sedimentation Rate 36 H 0-30 MM/HR Urine Color YELLOW Urine Clarity CLEAR Urine pH 6 5-9 Urine Specific [place] 1.015 L 1.016-1.022 Urine Protein 2+ H NEGATIVE Urine Glucose (UA) NEGATIVE NEGATIVE Urine Ketones NEGATIVE NEGATIVE Urine Nitrite NEGATIVE NEGATIVE Urine Bilirubin NEGATIVE NEGATIVE Urine Urobilinogen NORMAL NORMAL MG/DL Urine Leukocyte Esterase 2+ H NEGATIVE Urine RBC (Auto) 1+ H NEGATIVE Urine RBC 2-5 H /HPF Urine WBC 10-25 H /HPF Urine Squamous Epithelial Cells RARE /HPF Urine Renal Epithelial Cells NONE /HPF Urine Crystals NONE /LPF Urine Bacteria TRACE /HPF Urine Casts PRESENT /LPF Urine Hyaline Casts 0-2 H /LPF Urine Mucus NEGATIVE /LPF Urine Culture Indicated YES Glucometer 306 H 70-110 MG/DL Test 08/04/18 20:12 Range/Units Glucometer 337 H 70-110 MG/DL My Orders Orders - EMILIE BENSON MD BNP (08/04/18 09:52) Cbc With Automated Diff (08/04/18 09:52) Comprehensive Metabolic Panel (08/04/18 09:52) Hs C Reactive Protein (08/04/18 09:52) Magnesium (08/04/18 09:52) Ua Culture If Indicated (08/04/18 09:52) Saline Lock/Iv-Start (08/04/18 09:52) Ekg Tracing (08/04/18 09:52) Monitor-Rhythm Ecg Trace Only (08/04/18 09:52) Chest 1 View, Ap/Pa Only (08/04/18 09:52) Erythrocyte Sedimentation Rate (08/04/18 10:28) Albuterol/Ipra Inhalation Soln (Duoneb I (08/04/18 10:30) Svn Small Volume Nebulizer (08/04/18 10:28) Hydrocodone/Apap 5/325 Tablet (Lortab 5 (08/04/18 11:15) Urine Culture (08/04/18 10:30) Furosemide Injection (Lasix Injection) (08/04/18 13:00) Medications Given in ED Current Medications Medications Dose Ordered Sig/Roman Route Start Time Stop Time Status Last Admin Dose Admin Acetaminophen/ Hydrocodone Bitart 1 tab ONCE ONCE PO 08/04/18 11:15 08/04/18 11:16 DC 08/04/18 11:12 1 TAB Albuterol/ Ipratropium 3 ml ONCE ONCE INH 08/04/18 10:30 08/04/18 10:31 DC 08/04/18 11:09 3 ML Furosemide 40 mg ONCE ONCE IVP 08/04/18 13:00 08/04/18 13:01 DC 08/04/18 13:32 40 MG Vital Signs/I&O 08/04/18 08/04/18 08/04/1808/04/19 09:40 11:09 13:34 13:45 Temp 97.4 Pulse 87 83 Resp 18 18 B/P (MAP) 122/55 (77) 118/76 (90) Pulse Ox 96 96 97 97 O2 Delivery Room Air Room Air 08/04/18 08/04/18 08/04/18 08/04/18 14:20 14:29 15:20 16:04 Temp 96.9 97.2 Pulse 81 82 80 82 Resp 18 18 B/P (MAP) 133/72 126/86 (99) Pulse Ox 94 94 97 O2 Delivery Room Air Room Air 08/04/18 19:00 Pulse 84 Capillary Refill : Less Than 3 Seconds Blood Pressure Mean: 77 Progress Note : Progress Note Lab evaluation was performed. Patient's chronic renal failure is at baseline. Infection was not suggested based on labs. DuoNeb treatment was given for wheezing which helped her breathing. Case was discussed with Dr. Siegel and Dr. Francois. Lasix 40 mg IV was administered at Dr. Francois's suggestion. Patient was admitted for IV diuresis and monitoring. ECG Initial ECG Impression Date: Aug 04, 2018 Initial ECG Impression Time: 10:17 Initial ECG Rate: 84 Initial ECG Rhythm: Normal Sinus Comment Low voltage EKG. No ST elevation or depression. Sinus rhythm. Right axis deviation by automated read. Diagnostic Imaging Diagonstic Imaging: Xray Plain Films/CT/US/NM/MRI: chest Comments NAME: DEBORA GARCIA [facility] REC#: [id number] PT STATUS: REG ER : 1940 PHYSICIAN: EMILIE BENSON MD ADMIT DATE: 08/04/18/ER Signed Date of Exam: 08/04/18 CHEST 1 VIEW, AP/PA ONLY INDICATION: Shortness of breath COMPARISON: 07/15/2018 FINDINGS: Single view of the chest demonstrate cardiac enlargement with stable central vascular congestion. There are enlarging bilateral pleural effusions right greater than left. There is dependent atelectasis. There is no pneumothorax. Sternal wires are midline. Osseous structures stable. IMPRESSION: 1. Cardiac enlargement with central vascular congestion similar in appearance to prior exam. 2. Increasing bilateral pleural effusions. Dictated by: Dictated on workstation # [id number] Dict: 08/04/18 1054 Trans: 08/04/18 1105 Interpreted by: GAYATRI GUERIN Electronically signed by: GAYATRI GUERIN 08/04/18 1105 Departure Communication (Admissions) Time/Spoke to Admitting Phy: 12:35 Dr. Siegel Time/Spoke to Consulting Phy: 12:40 Dr. Francois Impression Primary Impression: Fluid overload Qualified Codes: E87.70 - Fluid overload, unspecified Additional Impressions: Bilateral pleural effusion COPD exacerbation Urinary tract infection Qualified Codes: N39.0 - Urinary tract infection, site not specified Disposition: ADMITTED INPATIENT Condition: Improved Admissions Decision to Admit Reason: Admit from ER (General) Decision to Admit/Date: Aug 04, 2018 Time/Decision to Admit Time: 12:35 Departure-Patient Inst. Referrals: MERRICK SIEGEL DO (PCP/Family) Primary Care Physician EMILIE BENSON MD Aug 04, 2018 12:11
[2018-08-04] MEDS ORDERED: FUROSEMIDE 40 MG/4 ML INJ (LASIX) IVP ONE (13:00)
--- NOTE | 2018-08-04 13:30 | NUR ---
REPORT TAKEN FROM KELLY GILLESPIE FROM EMERGENCY DEPARTMENT AT THIS TIME. THIS RN WILL ASSUME CARE OF THIS PATIENT WHEN SHE ARRIVES TO THIS FLOOR.
--- NOTE | 2018-08-04 13:45 | NUR ---
PATIENT TO FLOOR AT THIS TIME. THIS RN WILL ASSUME CARE AT THIS TIME.
--- NOTE | 2018-08-04 13:45 | NUR ---
DEBORA GARCIA admitted to room 424-1, with an admitting diagnosis of FLUID OVERLOAD, PLUERAL EFFUSION AND COPD EXACERBATION, on 08/04/18 from EMERGENCY DEPARTMENT via CART, accompanied by NURSING STUDENTS.DEBORA GARCIA introduced to surroundings, call light, bed controls, phone, TV, temperature control, lights, meal times, smoking policy, visitor policy, side rail policy, bathrooms and showers. Patient Rights given to patient in the handbook. DEBORA GARCIA verbalizes understanding that [facility] is not responsible for the loss or damage to any personal effects or valuables that are kept in the patients posession during their hospitalization. DEBORA GARCIA verbalizes understanding of Interdisciplinary Patient Education. Patient and/or family were informed about the Rapid Response Team and its purpose.
[2018-08-04] MEDS ORDERED: IRON150C3 PO (14:06)
[2018-08-04] MEDS ORDERED: SERT50TA9 PO (14:21)
[2018-08-04] MEDS ORDERED: FURO80TA3 PO (14:21)
[2018-08-04] MEDS ORDERED: INSU100I32 SC (14:21)
[2018-08-04] MEDS ORDERED: ACET-2267 PO (14:21)
[2018-08-04] MEDS ORDERED: HYDR-3812 PO (14:21)
[2018-08-04] MEDS ORDERED: INSU100I14 SC (14:21)
[2018-08-04] MEDS ORDERED: METO-333 PO (14:21)
--- NOTE | 2018-08-04 14:27 | NUR ---
UPDATED MED REC WITH MAR FROM [facility]
[2018-08-04 14:29] VITALS: BP 133/72
[2018-08-04] MEDS ORDERED: CATHETER FLUSH 10 ML SYR IV PRN (14:30)
[2018-08-04 15:20] VITALS: BP 126/86
--- NOTE | 2018-08-04 15:42 | Consultation-Cardiology ---
HPI-Cardiology Cardiology Consultation Date of Consultation 08/04/18 Date of Admission Time Seen by Provider: 15:36 Indication: congestive heart failure HPI 77 years old lady with history of coronary artery disease, chronic renal failure. Was in her usual state of health until recently when she started having increasing pedal edema, generalized weakness and fatigue with loss of energy and shortness of breath. No palpitation, syncope or near syncopal episode, she was seen in Dr. Shultz's office noted to have elevated BNP level. Upper my evaluation she was laying down in bed, comfortable, no active pain. Generalized body ache. No chest pain. No fever or chills Home Medications & Allergies Allergies: Coded Allergies: NKANo Known Allergies (Verified Allergy, Unknown, 07/15/18) Home Medication List Reviewed: Yes KJR-Cxfcwc-Tvoron Hx Patient Social History Alcohol Use: Denies Use Recreational Drug Use: No Type Used: Cigarettes 2nd Hand Smoke Exposure: No Recent Foreign Travel: No Recent Infectious Disease Expo: No Recent Hopitalizations: No Physical Abuse Screen: No Sexual Abuse: No Immunizations Up To Date Tetanus Booster (TDap): Unknown Date of Pneumonia Vaccine: Jun 02, 2011 Date of Influenza Vaccine: Apr 11, 2018 Past Medical History past medical history as described below Family Medical History Significant Family History: No Pertinent Family Hx Family History: FH: suicide FH: uterine cancer 19 MOTHER FHx: diabetes mellitus 19 MOTHER Review of Systems Constitutional: see HPI, malaise, weakness EENTM: see HPI, no symptoms reported Respiratory: see HPI, cough, dyspnea on exertion, orthopnea Cardiovascular: see HPI; No chest pain; edema; No Hx of Intervention, No palpitations, No syncope, No vascular heart diseas, No other Gastrointestinal: no symptoms reported, see HPI Genitourinary: no symptoms reported, see HPI Musculoskeletal: see HPI, muscle stiffness, muscle weakness Skin: see HPI, dryness Psychiatric/Neurological: No Symptoms Reported, See HPI Reviewed Test Results Reviewed Test Results Lab Laboratory Tests Test 08/04/18 10:00 08/04/18 10:15 08/04/18 10:30 Range/Units White Blood Count 6.5 4.3-11.0 10^3/uL Red Blood Count 3.82 L 4.35-5.85 10^6/uL Hemoglobin 9.7 L 11.5-16.0 G/DL Hematocrit 31 L 35-52 % Mean Corpuscular Volume 81 80-99 FL Mean Corpuscular Hemoglobin 25 25-34 PG Mean Corpuscular Hemoglobin Concent 31 L 32-36 G/DL Red Cell Distribution Width 17.7 H 10.0-14.5 % Platelet Count 260 130-400 10^3/uL Mean Platelet Volume 10.5 H 7.4-10.4 FL Neutrophils (%) (Auto) 76 H 42-75 % Lymphocytes (%) (Auto) 13 12-44 % Monocytes (%) (Auto) 9 0-12 % Eosinophils (%) (Auto) 1 0-10 % Basophils (%) (Auto) 1 0-10 % Neutrophils # (Auto) 5.0 1.8-7.8 X 10^3 Lymphocytes # (Auto) 0.8 L 1.0-4.0 X 10^3 Monocytes # (Auto) 0.6 0.0-1.0 X 10^3 Eosinophils # (Auto) 0.1 0.0-0.3 10^3/uL Basophils # (Auto) 0.0 0.0-0.1 10^3/uL Sodium Level 134 L 135-145 MMOL/L Potassium Level 4.6 3.6-5.0 MMOL/L Chloride Level 99 98-107 MMOL/L Carbon Dioxide Level 20 L 21-32 MMOL/L Anion Gap 15 H 5-14 MMOL/L Blood Urea Nitrogen 49 H 7-18 MG/DL Creatinine 2.44 H 0.60-1.30 MG/DL Estimat Glomerular Filtration Rate 19 BUN/Creatinine Ratio 20 Glucose Level 206 H 70-105 MG/DL Calcium Level 8.9 8.5-10.1 MG/DL Corrected Calcium 9.4 8.5-10.1 MG/DL Magnesium Level 2.1 1.8-2.4 MG/DL Total Bilirubin 0.4 0.1-1.0 MG/DL Aspartate Amino Transf (AST/SGOT) 24 5-34 U/L Alanine Aminotransferase (ALT/SGPT) 17 0-55 U/L Alkaline Phosphatase 115 40-136 U/L C-Reactive Protein High Sensitivity 1.29 H 0.00-0.50 MG/DL B-Type Natriuretic Peptide 2163.4 H <100.0 PG/ML Total Protein 7.5 6.4-8.2 GM/DL Albumin 3.4 3.2-4.5 GM/DL Erythrocyte Sedimentation Rate 36 H 0-30 MM/HR Urine Color YELLOW Urine Clarity CLEAR Urine pH 6 5-9 Urine Specific [place] 1.015 L 1.016-1.022 Urine Protein 2+ H NEGATIVE Urine Glucose (UA) NEGATIVE NEGATIVE Urine Ketones NEGATIVE NEGATIVE Urine Nitrite NEGATIVE NEGATIVE Urine Bilirubin NEGATIVE NEGATIVE Urine Urobilinogen NORMAL NORMAL MG/DL Urine Leukocyte Esterase 2+ H NEGATIVE Urine RBC (Auto) 1+ H NEGATIVE Urine RBC 2-5 H /HPF Urine WBC 10-25 H /HPF Urine Squamous Epithelial Cells RARE /HPF Urine Renal Epithelial Cells NONE /HPF Urine Crystals NONE /LPF Urine Bacteria TRACE /HPF Urine Casts PRESENT /LPF Urine Hyaline Casts 0-2 H /LPF Urine Mucus NEGATIVE /LPF Urine Culture Indicated YES Physical Exam Vital Signs Vital Signs - First Documented 08/04/18 08/04/18 09:40 11:09 Temp 97.4 Pulse 87 Resp 18 B/P (MAP) 122/55 (77) Pulse Ox 96 O2 Delivery Room Air Capillary Refill : Less Than 3 Seconds Height, Weight, BMI Height: 5'7.00" Weight: 182lbs. 5.0oz. 82.343912fv; 28.6 BMI Method:Stated General Appearance: WD/WN, Mild Distress Eyes: Bilateral Eye Normal Inspection, Bilateral Eye PERRL, Bilateral Eye EOMI HEENT: PERRL/EOMI, TMs Normal, Normal ENT Inspection, Pharynx Normal Neck: Full Range of Motion, Normal Inspection, Non Tender, Supple, Carotid Bruit Respiratory: Chest Non Tender, Normal Breath Sounds, No Accessory Muscle Use, No Respiratory Distress, Crackles Cardiovascular: Regular Rate, Rhythm, No JVD, Normal Peripheral Pulses, Systolic Murmur, Gallop/S3 Gastrointestinal: Normal Bowel Sounds, No Organomegaly, No Pulsatile Mass, Non Tender, Soft Back: Normal Inspection, No CVA Tenderness, No Vertebral Tenderness Extremity: Normal Capillary Refill, Normal Inspection, Normal Range of Motion, Non Tender, No Calf Tenderness, Pedal Edema (+2-3 pedal edema) Neurologic/Psychiatric: Alert, Oriented x3, No Motor/Sensory Deficits, Normal Mood/Affect Skin: Normal Color, Erythema Lymphatic: No Adenopathy A/P-Cardiology Admission Diagnosis Congestive heart failure Acute renal failure Coronary artery disease Hypertension Hyperlipidemia Assessment/Plan Congestive heart failure, fluid overload, started on IV Lasix. Continue to monitor renal function closely and fluid status Acute on chronic renal failure, stage IV kidney disease, may require dialysis in the near future coronary artery disease, history of CABG, had previous LA in September 2017 underwent angioplasty to the vein graft to the ramus intermedius. The procedure showed severe proximal LAD disease, proximal occlusion of the ramus intermedius and moderately to severe long stenosis in the proximal portion of the circumflex artery, patent stents in the proximal and distal right coronary artery known to have 3 stents Taxus, moderately to severe stenosis in a small caliber PDA from the RCA, occlusion of the vein graft to the right ramus intermedius underwent balloon angioplasty using 2.012 mm stent at the site of insertion of the graft to the ramus intermedius then Alpine 3 x 38 stent in the proximal and midportion of the graft, patent HUFF to LAD, ejection fraction 50 percent, had another angioplasty in October 2017 for occlusion of the vein graft to the ramus intermedius, was transferred in June 2018 to [place] after having myocardial infarction and reported that she had 2 stents placed while she was in the hospital Generalized weakness and frequent fall with fatigue. History of hyponatremia which has been persistent Normal left ventricular size with ejection fraction 45-50 percent, anteroseptal hypokinesis to akinesis, mild MR, TR, PA pressure 30-35 mmHg, grade 1 diastolic dysfunction by echo in October 2017. Borderline hypotension, responding to IV fluid Diabetes mellitus, followed and managed by primary care physician Peripheral neuropathy, probably diabetic, no change from baseline Chronic leg weakness, feet discomfort. Has cervical spondylosis, Tobaccoism, educated on smoking cessation Clinical Quality Measures DVT/VTE Risk/Contraindication: Risk Factor Score Per Nursin RFS Level Per Nursing on Admit: 4+=Very High ODILIA AGUAYO MD Aug 04, 2018 15:42
[2018-08-04] MEDS: HYDROcodone/APAP 5 MG/325 MG (LORTAB) TAB PO PRN ×2 (15:46→20:21)
[2018-08-04] MEDS: FUROSEMIDE 40 MG/4 ML INJ (LASIX) IV SCH (16:29)
[2018-08-04] MEDS ORDERED: cefTRIAXone FOR IV USE 1,000 MG in NS (IVPB) 50 ML IV NR (19:45)
[2018-08-04 20:00] VITALS: BP 125/70
[2018-08-04] MEDS: ASPIRIN E.C. 81 MG (ECOTRIN) TAB PO SCH (20:13)
[2018-08-04] MEDS: CLOPIDOGREL 75 MG (PLAVIX) TABLET PO SCH (20:13)
[2018-08-04] MEDS: GABAPENTIN 300 MG (NEURONTIN) CAP PO SCH (20:13)
[2018-08-04] MEDS: ATORVASTATIN 80 MG (LIPITOR) TABLET PO SCH (20:13)
[2018-08-04] MEDS: inSUlin ASPART (NovoLOG) 1 UNIT/0.01 ML (CHARGE PER UNIT) SC SCH (20:20)
[2018-08-04] MEDS: CATHETER FLUSH 10 ML SYR IV SCH (21:16)
[2018-08-04] MEDS: RT-ALBUTEROL SULF 2.5 MG/3 ML PRE-MIX VIAL INH SCH (21:22)
[2018-08-05] VITALS (7 sets, daily range): BP systolic 110–136; BP diastolic 53–73
[2018-08-05] MEDS: HYDROcodone/APAP 5 MG/325 MG (LORTAB) TAB PO PRN ×3 (04:10→18:34)
[2018-08-05 05:59] LABS: BASOPHILS % (AUTO) 0 % (0-10); EOSINOPHILS # (AUTO) 0.1 10^3/uL (0.0-0.3); EOSINOPHILS % (AUTO) 1 % (0-10); HEMATOCRIT 28 % (35-52); HEMOGLOBIN 8.5 G/DL (11.5-16.0); LYMPHOCYTES % (AUTO) 21 % (12-44); MEAN CORPUSCULAR HEMOGLOBIN 25 PG (25-34); MEAN CORPUSCULAR HGB CONC 31 G/DL (32-36); MEAN CORPUSCULAR VOLUME 82 FL (80-99); MONOCYTES # (AUTO) 0.6 X 10^3 (0.0-1.0); MONOCYTES % (AUTO) 13 % (0-12); NEUTROPHILS # (AUTO) 3.2 X 10^3 (1.8-7.8); NEUTROPHILS % (AUTO) 65 % (42-75); PLATELET COUNT 263 10^3/uL (130-400); RED CELL DISTRIBUTION WIDTH 18.1 % (10.0-14.5); WHITE BLOOD COUNT 4.9 10^3/uL (4.3-11.0)
[2018-08-05 06:12] LABS: CALCIUM 8.5 MG/DL (8.5-10.1); CREATININE SERUM 2.42 MG/DL (0.60-1.30)
[2018-08-05] MEDS: inSUlin ASPART (NovoLOG) 1 UNIT/0.01 ML (CHARGE PER UNIT) SC SCH ×4 (06:16→18:30)
[2018-08-05] MEDS: CATHETER FLUSH 10 ML SYR IV SCH ×3 (06:18→20:10)
[2018-08-05] MEDS: FUROSEMIDE 40 MG/4 ML INJ (LASIX) IV SCH ×2 (06:19→18:33)
[2018-08-05] MEDS: RT-ALBUTEROL SULF 2.5 MG/3 ML PRE-MIX VIAL INH SCH ×2 (07:39→18:40)
--- NOTE | 2018-08-05 07:47 | History & Physicial ---
History of Present Illness History of Present Illness Reason for visit/HPI [facility]. Patient within the last month gained over 23 pounds. Ration has history of renal insufficiency chronic Patient has history of coronary artery disease. Patient and known diabetic. Patient has COPD. Patient has history of tobaccoism. According to the [facility] the [facility] patient sitting up to sleep now. Patient's GFR is 19 this morning. Patient sent out to the emergency room. 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 Patient admitted. Patient has 4+ pedal edema with swelling on the way up to the hips. Patient has pain all over the body especially in the lower back. Patient short of breath with exertion Date of Admission Aug 04, 2018 at 13:08 Time Seen by a Provider: 07:42 I consulted on this patient on 08/05/18 07:42 Attending Physician Ismael Siegel DO Admitting Physician Ismael Siegel DO Consult Allergies and Home Medications Allergies Coded Allergies: NKANo Known Allergies (Verified Allergy, Unknown, 07/15/18) Home Medications Acetaminophen 500 Mg Tablet, 1,000 MG PO Q8H PRN for PAIN-MODERATE, (Reported) TAKES 2 (500MG) TABLETS Aspirin 81 Mg Tablet.dr, 81 MG PO HS, (Reported) Atorvastatin Calcium 80 Mg Tablet, 80 MG PO HS, (Reported) Clopidogrel Bisulfate 75 Mg Tablet, 75 MG PO HS, (Reported) Furosemide 80 Mg Tablet, 80 MG PO DAILY, (Reported) Gabapentin 300 Mg Capsule, 300 MG PO BID, (Reported) Guaifenesin/Dextromethorphan 5 Ml Syrup, 10 ML PO Q4H PRN for COUGH, (Reported) Hydrocodone/Acetaminophen 1 Each Tablet, 1 TAB PO TID, (Reported) Insulin Aspart 300 Units/3 Ml Solution, SC ACHS, (Reported) 0-200 = 0 UNITS 201-250 = 3 UNITS 251-300 = 5 UNITS 301-350 = 7 UNITS 351- 400 = 9 UNITS >400 OR <60 CALL PHYSICIAN Insulin Degludec 100 Unit/1 Ml Insuln.pen, 13 UNITS SC DAILY, (Reported) Metoprolol Tartrate 25 Mg Tablet, 12.5 MG PO DAILY, (Reported) TAKES 1/2 (25MG) TABLET Sertraline HCl 50 Mg Tablet, 25 MG PO HS, (Reported) TAKES 1/2 (50MG) TABLET Patient Home Medication List Home Medication List Reviewed: No Past Spnxocl-Xjrdnq-Wxigaz Hx Patient Social History Marrital Status: Employed/Student: retired Alcohol Use: Denies Use Recreational Drug Use: No Type Used: Cigarettes 2nd Hand Smoke Exposure: No Physical Abuse Screen: No Sexual Abuse: No Recent Foreign Travel: No Contact w/other who traveled: No Recent Hopitalizations: No Recent Infectious Disease Expo: No Immunizations Up To Date Tetanus Booster (TDap): Unknown Pediatric: No Date of Pneumonia Vaccine: Jun 02, 2011 Date of Influenza Vaccine: Apr 11, 2018 Seasonal Allergies Seasonal Allergies: No Surgeries Yes Appendectomy, Cardiac, CABG, Section, Coronary Stent, Hysterectomy, Oophorectomy, Orthopedic Respiratory Yes COPD Currently Using CPAP: No Currently Using BIPAP: No Cardiovascular Yes Chronic Edema/Swelling, Coronary Artery Disease, Heart Attack, High Cholesterol , Irregular Heartbeat Neurological Yes Neuropathy, Seizure Disorder, TIA Reproductive System : No Hx Reproductive Disorders: No Sexually Transmitted Disease: No HIV/AIDS: No Female Reproductive Disorders: Denies 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 SPECIALIST History: Hysterectomy, Menopausal Genitourinary Yes Renal Failure Gastrointestinal Yes Gastroesophageal Reflux, Ulcer Musculoskeletal Yes Osteoporosis, Arthritis, Chronic Back Pain Endocrine History of Endocrine Disorders: Yes Endocrine Disorders: Diabetes, Insulin dep HEENT History of HEENT Disorders: Yes HEENT Disorders: Cataract Loss of Vision: Denies Hearing Impairment: Denies Cancer No Psychosocial History of Psychiatric Problem: Yes Behavioral Health Disorders: Anxiety, Depression Integumentary History of Skin or Integumenta: No Blood Transfusions History of Blood Disorders: No Adverse Reaction to a Blood Tr: No Family Medical History Significant Family History: No Pertinent Family Hx Family Hx: FH: suicide FH: uterine cancer 19 MOTHER FHx: diabetes mellitus 19 MOTHER Review of Systems Constitutional: malaise, weakness, weight gain, other (23 pounds and over 1 month gaining weight) EENTM: no symptoms reported Respiratory: short of breath Cardiovascular: edema Gastrointestinal: no symptoms reported Genitourinary: no symptoms reported Physical Exam Vital Signs Vital Signs - First Documented 08/04/18 08/04/18 09:40 11:09 Temp 97.4 Pulse 87 Resp 18 B/P (MAP) 122/55 (77) Pulse Ox 96 O2 Delivery Room Air Capillary Refill : Less Than 3 Seconds Height, Weight, BMI Height: 5'7.00" Weight: 186lbs. 5.0oz. 84.783116dk; 28.6 BMI Method:Stated General Appearance: No Apparent Distress, WD/WN Eyes: Bilateral Eye Normal Inspection HEENT: Normal ENT Inspection Neck: Full Range of Motion, Normal Inspection, Non Tender Respiratory: No Accessory Muscle Use, No Respiratory Distress, Decreased Breath Sounds Cardiovascular: Regular Rate, Rhythm Gastrointestinal: Non Tender, Soft Extremity: Pedal Edema Assessment/Plan Assessment and Plan Fluid overload. Congestive heart failure. Bilateral pleural effusion. Coronary artery disease. COPD. UTI. Chronic renal failure. Weakness and fatigue. Short of breath. Diabetes. Tobaccoism Admission Diagnosis Admission Status: Inpatient Order (span 2 midnights) Reason for Inpatient Admission: Weight gain of 23 pounds within the last month. Short of breath. Coronary artery disease. COPD. Renal insufficiency. Clinical Quality Measures DVT/VTE Risk/Contraindication: Risk Factor Score Per Nursin RFS Level Per Nursing on Admit: 4+=Very High ISMAEL SIEGEL DO Aug 05, 2018 07:47
[2018-08-05] MEDS: meTOprolol TARTRATE 25 MG (LOPRESSOR) TABLET PO SCH (09:15)
[2018-08-05] MEDS: GABAPENTIN 300 MG (NEURONTIN) CAP PO SCH ×2 (09:15→20:07)
--- NOTE | 2018-08-05 09:34 | Diagnostic Imaging Report ---
INDICATION: Pleural effusion. COMPARISON: 08/04/2018. FINDINGS: There is cardiomegaly and some venous congestion. There is bibasilar atelectasis and/or pneumonitis. There are bilateral pleural effusions, right greater than left. There is no pneumothorax. The mediastinum is unremarkable. There has been previous median sternotomy and coronary artery bypass graft. IMPRESSION: Bibasilar atelectasis and/or pneumonitis and bilateral pleural effusions, right greater than left. Cardiomegaly and some central pulmonary venous congestion. Dictated by: Dictated on workstation # [id number]
--- NOTE | 2018-08-05 09:43 | Progress Note-Cardiology ---
Cardiology SOAP Progress Note Subjective: Sitting up in bed. States her feet and her legs hurt this morning. No c/o CP. She feels her SOB has been better today. No c/o palpitations. Objective: I&O/Vital Signs 08/05/18 08/05/18 08/05/18 08/05/18 04:00 07:01 07:39 08:00 Temp 97.1 96.8 Pulse 86 85 87 Resp 18 20 B/P (MAP) 125/64 (84) 116/72 (87) Pulse Ox 95 90 95 O2 Delivery Room Air Room Air Room Air 08/05/18 08/05/18 08/05/18 08:00 12:00 12:24 Temp 98.1 Pulse 79 78 Resp 20 B/P (MAP) 129/73 (91) Pulse Ox 95 95 O2 Delivery Room Air Room Air 08/05/18 00:00 Intake Total 850 ml Output Total 1650 ml Balance -800 ml Weight (Pounds): 186 Weight (Ounces): 5.0 Weight (Calculated Kilograms): 84.334914 Constitutional: AAO x 3; No apparent distress; well-developed, well-nourished Respiratory: No accessory muscle use, No respiratory distress; chest expansion is symmetric, chest is bilaterally symmetric, rhonchi (scattered), other ( prolonged exp phase) Cardiovascular: regular rate-rhythm; No JVD; S1 and S2, systolic murmur Gastrointestional: soft, round, audible bowel sounds Extremities: other (bilat LE extremity edema (2+); bilat LE ruddish from the knees to the ankles) Neurologic/Psychiatric: oriented x 3, grossly intact Skin: other Results/Procedures: Labs Laboratory Tests 08/04/18 17:22: Glucometer 306H 08/04/18 20:12: Glucometer 337H 08/05/18 05:30: White Blood Count 4.9, Red Blood Count 3.42L, Hemoglobin 8.5L, Hematocrit 28L, Mean Corpuscular Volume 82, Mean Corpuscular Hemoglobin 25, Mean Corpuscular Hemoglobin Concent 31L, Red Cell Distribution Width 18.1H, Platelet Count 263, Mean Platelet Volume 10.0, Neutrophils (%) (Auto) 65, Lymphocytes (%) (Auto) 21 , Monocytes (%) (Auto) 13H, Eosinophils (%) (Auto) 1, Basophils (%) (Auto) 0, Neutrophils # (Auto) 3.2, Lymphocytes # (Auto) 1.0, Monocytes # (Auto) 0.6, Eosinophils # (Auto) 0.1, Basophils # (Auto) 0.0, Sodium Level 135, Potassium Level 4.0, Chloride Level 100, Carbon Dioxide Level 21, Anion Gap 14, Blood Urea Nitrogen 53H, Creatinine 2.42H, Estimat Glomerular Filtration Rate 19, BUN/ Creatinine Ratio 22, Glucose Level 198H, Calcium Level 8.5, Magnesium Level 2.0 08/05/18 09:57: Glucometer 342H 08/05/18 14:44: Glucometer 159H Microbiology 08/04/18 Urine Culture - Final, Complete NO GROWTH Procedures NAME: DEBORA GARCIA [facility] REC#: [id number] PT STATUS: ADM IN : 1940 PHYSICIAN: MERRICK SIEGEL DO ADMIT DATE: 08/04/18 Draft Date of Exam:08/05/18 CHEST PA/LAT (2 VIEW) INDICATION: Pleural effusion. COMPARISON: 08/04/2018. FINDINGS: There is cardiomegaly and some venous congestion. There is bibasilar atelectasis and/or pneumonitis. There are bilateral pleural effusions, right greater than left. There is no pneumothorax. The mediastinum is unremarkable. There has been previous median sternotomy and coronary artery bypass graft. IMPRESSION: Bibasilar atelectasis and/or pneumonitis and bilateral pleural effusions, right greater than left. Cardiomegaly and some central pulmonary venous congestion. Dictated on workstation # [id number] Dict: 08/05/18 0926 Trans: 08/05/18 0934 [id number] Interpreted by: KRISTAN MELENDEZ MD Electronically signed by: A/P: Assessment: Pneumonia - management per medical services Acute on chronic systolic/diastolic congestive heart failure, fluid overload Acute on chronic renal failure, stage IV kidney disease, may require dialysis in the near future Coronary artery disease, history of CABG, had previous OR in September 2017 underwent angioplasty to the vein graft to the ramus intermedius. The procedure showed severe proximal LAD disease, proximal occlusion of the ramus intermedius and moderately to severe long stenosis in the proximal portion of the circumflex artery, patent stents in the proximal and distal right coronary artery known to have 3 stents Taxus, moderately to severe stenosis in a small caliber PDA from the RCA, occlusion of the vein graft to the right ramus intermedius underwent balloon angioplasty using 2.012 mm stent at the site of insertion of the graft to the ramus intermedius then Alpine 3 x 38 stent in the proximal and midportion of the graft, patent HUFF to LAD, ejection fraction 50 percent, had another angioplasty in October 2017 for occlusion of the vein graft to the ramus intermedius, was transferred in (most recent cardiac cath ) June 2018 to [place] after having myocardial infarction and reported that she had 2 stents placed while she was in the hospital - details of the most recent stenting unknown Generalized weakness and frequent fall with fatigue. History of hyponatremia which has been persistent Normal left ventricular size with ejection fraction 45-50 percent, anteroseptal hypokinesis to akinesis, mild MR, TR, PA pressure 30-35 mmHg, grade 1 diastolic dysfunction by echo in October 2017. Mild hypotension - improved Diabetes mellitus, followed and managed by primary care physician Peripheral neuropathy, probably diabetic, no change from baseline Chronic leg weakness, feet discomfort. Has cervical spondylosis, Tobaccoism, educated on smoking cessation Plan: Continue current medication regimen Monitor lab closely Anemia of undetermined etiology - management per medical services Request records from [facility] of most recent cardiac cath Physician Assessment Physician Assessment Reports malaise and gen discomfort (farrah of legs). No cp or palp or syncope. Has shortness of breath Lungs: diminished air entry at the bases Cor: reg Ext: no c/c, mod bilat leg swelling (pitting edema) A&R * As documented in our note above that I updated (italics) and as noted below * I discussed her case with Dr Francois (who has seen him in cardiac care several times lately) * Complex management due to multiple comorbidities * Continue current regimen * Monitor labs JERARDO SCHWARTZ Aug 05, 2018 09:42 DORA HASSAN MD FACP [facility] Aug 05, 2018 15:12
[2018-08-05] MEDS ORDERED: guaiFENesin/DM (ROBITUSSIN DM) 10 ML UDC PO PRN (11:15)
--- NOTE | 2018-08-05 15:23 | NUR ---
CM/SS spoke with [facility], patient is a long time resident there. They will resume her placement when she is ready to discharge from the hospital.
[2018-08-05] MEDS: ENOXAPARIN 30 MG/0.3 ML (LOVENOX) SYR SC SCH (18:33)
[2018-08-05] MEDS: CLOPIDOGREL 75 MG (PLAVIX) TABLET PO SCH (20:07)
[2018-08-05] MEDS: ATORVASTATIN 80 MG (LIPITOR) TABLET PO SCH (20:07)
[2018-08-05] MEDS: SERTRALINE 50 MG (ZOLOFT) TABLET PO SCH (20:07)
[2018-08-05] MEDS: ASPIRIN E.C. 81 MG (ECOTRIN) TAB PO SCH (20:07)
[2018-08-06 04:00] VITALS: BP 107/56
[2018-08-06 04:42] LABS: BASOPHILS % (AUTO) 0 % (0-10); EOSINOPHILS # (AUTO) 0.1 10^3/uL (0.0-0.3); EOSINOPHILS % (AUTO) 2 % (0-10); HEMATOCRIT 28 % (35-52); HEMOGLOBIN 8.7 G/DL (11.5-16.0); LYMPHOCYTES # (AUTO) 0.9 X 10^3 (1.0-4.0); LYMPHOCYTES % (AUTO) 20 % (12-44); MEAN CORPUSCULAR HEMOGLOBIN 25 PG (25-34); MEAN CORPUSCULAR HGB CONC 31 G/DL (32-36); MEAN CORPUSCULAR VOLUME 81 FL (80-99); MEAN PLATELET VOLUME 9.8 FL (7.4-10.4); MONOCYTES # (AUTO) 0.6 X 10^3 (0.0-1.0); MONOCYTES % (AUTO) 12 % (0-12); NEUTROPHILS # (AUTO) 3.1 X 10^3 (1.8-7.8); NEUTROPHILS % (AUTO) 66 % (42-75); PLATELET COUNT 255 10^3/uL (130-400); RED CELL DISTRIBUTION WIDTH 17.7 % (10.0-14.5); WHITE BLOOD COUNT 4.7 10^3/uL (4.3-11.0)
[2018-08-06 04:54] LABS: CALCIUM 8.5 MG/DL (8.5-10.1); CREATININE SERUM 2.38 MG/DL (0.60-1.30); POTASSIUM 3.6 MMOL/L (3.6-5.0)
[2018-08-06] MEDS: inSUlin ASPART (NovoLOG) 1 UNIT/0.01 ML (CHARGE PER UNIT) SC SCH ×4 (06:11→20:32)
[2018-08-06] MEDS: FUROSEMIDE 40 MG/4 ML INJ (LASIX) IV SCH ×2 (06:11→15:01)
[2018-08-06] MEDS: CATHETER FLUSH 10 ML SYR IV SCH ×3 (06:11→22:00)
[2018-08-06] MEDS: HYDROcodone/APAP 5 MG/325 MG (LORTAB) TAB PO PRN ×3 (06:46→20:39)
[2018-08-06 08:00] VITALS: BP 134/61
[2018-08-06] MEDS: RT-ALBUTEROL SULF 2.5 MG/3 ML PRE-MIX VIAL INH SCH ×2 (08:35→19:33)
[2018-08-06] MEDS: GABAPENTIN 300 MG (NEURONTIN) CAP PO SCH ×2 (10:06→20:33)
[2018-08-06] MEDS: meTOprolol TARTRATE 25 MG (LOPRESSOR) TABLET PO SCH (10:06)
--- NOTE | 2018-08-06 11:00 | Diagnostic Imaging Report ---
INDICATION: Pleural effusions. COMPARISON: 08/05/2018. FINDINGS: Frontal and lateral views of the chest demonstrate unchanged bilateral pleural effusions with dependent atelectasis. Heart remains prominent with central vascular congestion. There is no pneumothorax. Sternal wires are midline. Osseous structures are stable. IMPRESSION: Unchanged aeration of the lungs. Dictated by: Dictated on workstation # [id number]
--- NOTE | 2018-08-06 11:13 | Progress Note-Hospitalist ---
Subjective HPI/CC On Admission Date Seen by Provider: Aug 06, 2018 Time Seen by Provider: 11:45 Subjective/Events-last exam patient very cranky Dementia noted Family at bedside Wants catheter out continues to smoke Checked meds and labs Review of Systems Musculoskeletal: foot pain Objective Exam Vital Signs Vital Signs Date Time Temp Pulse Resp B/P (MAP) Pulse Ox O2 Delivery O2 Flow Rate FiO2 08/06/18 08:36 92 Room Air 08/06/18 08:00 95.9 91 18 134/61 (85) Capillary Refill : Less Than 3 Seconds General Appearance: No Apparent Distress, WD/WN, Chronically ill Respiratory: Chest Non Tender, Lungs Clear, Normal Breath Sounds, No Accessory Muscle Use, No Respiratory Distress, Decreased Breath Sounds Cardiovascular: Regular Rate, Rhythm, No Edema, No Gallop, No JVD, No Murmur, Normal Peripheral Pulses Neurologic/Psychiatric: Alert, No Motor/Sensory Deficits, Normal Mood/Affect, Disoriented Skin: Normal Color, Warm/Dry Results/Procedures Lab Laboratory Tests 08/06/18 04:20 Patient resulted labs reviewed. Assessment/Plan Assessment and Plan Assess & Plan/Chief Complaint Assessment per PCP: Fluid overload. Congestive heart failure. Bilateral pleural effusion. Coronary artery disease. COPD. UTI. Chronic renal failure. Weakness and fatigue. Short of breath. Diabetes. Tobaccoism Plan: Supportive care Dementia precludes reasonable behavior Diagnosis/Problems Diagnosis/Problems (1) Fluid overload Status: Acute Qualifiers: Hypervolemia type: unspecified Qualified Codes: E87.70 - Fluid overload, unspecified (2) Dementia Status: Chronic Qualifiers: Dementia type: Alzheimer's disease Alzheimer's disease onset: unspecified onset Dementia behavioral disturbance: with behavioral disturbance Qualified Codes: G30.9 - Alzheimer's disease, unspecified; F02.81 - Dementia in other diseases classified elsewhere with behavioral disturbance (3) Neuropathy Status: Chronic (4) Bilateral pleural effusion Status: Acute (5) Smoker Status: Chronic (6) COPD exacerbation Status: Acute (7) Urinary tract infection Status: Resolved Qualifiers: Urinary tract infection type: site unspecified Hematuria presence: without hematuria Qualified Codes: N39.0 - Urinary tract infection, site not specified (8) Chest pain Status: Acute (9) CHF (congestive heart failure) (10) Insulin dependent diabetes mellitus Status: Acute (11) Anemia Status: Chronic Clinical Quality Measures DVT/VTE Risk/Contraindication: Risk Factor Score Per Nursin RFS Level Per Nursing on Admit: 4+=Very High Contraindications-Mechi: Other *list below* EZEKIEL CHOUDHARY DO Aug 06, 2018 11:13
[2018-08-06 12:00] VITALS: BP 115/58
[2018-08-06] MEDS: ENOXAPARIN 30 MG/0.3 ML (LOVENOX) SYR SC SCH (15:01)
[2018-08-06] MEDS: ACETAMINOPHEN 500 MG TAB (TYLENOL) PO PRN (15:30)
[2018-08-06 15:35] VITALS: BP 122/68
--- NOTE | 2018-08-06 18:30 | Progress Note-Cardiology ---
Cardiology SOAP Progress Note Subjective: Gen malaise and some shortness of breath and bilat leg swelling No cp or palp or syncope Objective: I&O/Vital Signs 08/06/18 08/06/18 08/06/18 08/06/18 07:00 08:00 08:36 12:00 Temp 95.9 95.6 Pulse 90 91 76 Resp 18 18 B/P (MAP) 134/61 (85) 115/58 (77) Pulse Ox 92 92 99 O2 Delivery Room Air Room Air Nasal Cannula 08/06/18 15:35 Temp 97.5 Pulse 76 Resp 20 B/P (MAP) 122/68 (86) Pulse Ox 96 O2 Delivery Nasal Cannula O2 Flow Rate 2.00 08/06/18 00:00 Intake Total 1030 ml Output Total 1425 ml Balance -395 ml Weight (Pounds): 190 Weight (Ounces): 5.0 Weight (Calculated Kilograms): 86.763944 Constitutional: AAO x 3; No apparent distress; well-developed, well-nourished Respiratory: No accessory muscle use, No respiratory distress; chest expansion is symmetric, chest is bilaterally symmetric, rhonchi (scattered), other ( prolonged exp phase) Cardiovascular: regular rate-rhythm; No JVD; S1 and S2, systolic murmur Gastrointestional: soft, round, audible bowel sounds Extremities: other (bilat LE extremity edema (2+); bilat LE ruddish from the knees to the ankles) Neurologic/Psychiatric: oriented x 3, grossly intact Skin: other Results/Procedures: Labs Laboratory Tests 08/06/18 04:20: White Blood Count 4.7, Red Blood Count 3.48L, Hemoglobin 8.7L, Hematocrit 28L, Mean Corpuscular Volume 81, Mean Corpuscular Hemoglobin 25, Mean Corpuscular Hemoglobin Concent 31L, Red Cell Distribution Width 17.7H, Platelet Count 255, Mean Platelet Volume 9.8, Neutrophils (%) (Auto) 66, Lymphocytes (%) (Auto) 20, Monocytes (%) (Auto) 12, Eosinophils (%) (Auto) 2, Basophils (%) (Auto) 0, Neutrophils # (Auto) 3.1, Lymphocytes # (Auto) 0.9L, Monocytes # (Auto) 0.6, Eosinophils # (Auto) 0.1, Basophils # (Auto) 0.0, Sodium Level 137, Potassium Level 3.6, Chloride Level 101, Carbon Dioxide Level 22, Anion Gap 14, Blood Urea Nitrogen 51H, Creatinine 2.38H, Estimat Glomerular Filtration Rate 20, BUN/ Creatinine Ratio 21, Glucose Level 183H, Calcium Level 8.5, B-Type Natriuretic Peptide 2458.9H 08/06/18 05:42: Glucometer 206H 08/06/18 10:36: Glucometer 302H 08/06/18 14:43: Glucometer 362H Microbiology 08/04/18 Urine Culture - Final, Complete NO GROWTH Laboratory Tests 08/05/18 05:30 08/06/18 04:20 A/P: Assessment: Pneumonia - management per Med Svce Acute on chronic systolic/diastolic congestive heart failure Acute on chronic renal failure (CKD 4) Coronary artery disease, history of CABG, had previous SD in September 2017 underwent angioplasty to the vein graft to the ramus intermedius. The procedure showed severe proximal LAD disease, proximal occlusion of the ramus intermedius and moderately to severe long stenosis in the proximal portion of the circumflex artery, patent stents in the proximal and distal right coronary artery known to have 3 stents Taxus, moderately to severe stenosis in a small caliber PDA from the RCA, occlusion of the vein graft to the right ramus intermedius underwent balloon angioplasty using 2.012 mm stent at the site of insertion of the graft to the ramus intermedius then Alpine 3 x 38 stent in the proximal and midportion of the graft, patent HUFF to LAD, ejection fraction 50 percent, had another angioplasty in October 2017 for occlusion of the vein graft to the ramus intermedius, was transferred in (most recent cardiac cath ) June 2018 to [place] after having myocardial infarction and reported that she had 2 stents placed while she was in the hospital - details of the most recent stenting unknown Generalized weakness and fatigue. History of hyponatremia Normal left ventricular size with ejection fraction 45-50 percent, anteroseptal hypokinesis to akinesis, mild MR, TR, PA pressure 30-35 mmHg, grade 1 diastolic dysfunction by echo in October 2017. Diabetes mellitus, followed and managed by primary care physician Peripheral neuropathy, probably diabetic, no change from baseline Chronic leg weakness, feet discomfort Tobaccoism Plan: * Continue current regimen * Monitor labs * I spoke with her and answered CV related questions DORA HASSAN MD FACP [facility] Aug 06, 2018 18:30
[2018-08-06 19:20] VITALS: BP 106/63
[2018-08-06] MEDS: CLOPIDOGREL 75 MG (PLAVIX) TABLET PO SCH (20:32)
[2018-08-06] MEDS: ATORVASTATIN 80 MG (LIPITOR) TABLET PO SCH (20:33)
[2018-08-06] MEDS: SERTRALINE 50 MG (ZOLOFT) TABLET PO SCH (20:33)
[2018-08-06] MEDS: ASPIRIN E.C. 81 MG (ECOTRIN) TAB PO SCH (20:33)
[2018-08-06] MEDS: MENTHOL/ZINC OXIDE (CALMOSEPTINE) 113 GM TUBE TOP SCH (20:45)
[2018-08-06 23:00] VITALS: BP 116/60
[2018-08-07] MEDS: HYDROcodone/APAP 5 MG/325 MG (LORTAB) TAB PO PRN ×5 (01:24→21:10)
[2018-08-07 04:00] VITALS: BP 117/61
[2018-08-07 04:47] LABS: BASOPHILS % (AUTO) 1 % (0-10); EOSINOPHILS # (AUTO) 0.1 10^3/uL (0.0-0.3); EOSINOPHILS % (AUTO) 3 % (0-10); HEMATOCRIT 29 % (35-52); LYMPHOCYTES # (AUTO) 0.9 X 10^3 (1.0-4.0); LYMPHOCYTES % (AUTO) 18 % (12-44); MEAN CORPUSCULAR HEMOGLOBIN 25 PG (25-34); MEAN CORPUSCULAR HGB CONC 31 G/DL (32-36); MEAN CORPUSCULAR VOLUME 82 FL (80-99); MEAN PLATELET VOLUME 9.9 FL (7.4-10.4); MONOCYTES # (AUTO) 0.7 X 10^3 (0.0-1.0); MONOCYTES % (AUTO) 15 % (0-12); NEUTROPHILS # (AUTO) 3.2 X 10^3 (1.8-7.8); NEUTROPHILS % (AUTO) 64 % (42-75); PLATELET COUNT 252 10^3/uL (130-400)
[2018-08-07 05:06] LABS: CALCIUM 8.5 MG/DL (8.5-10.1); CREATININE SERUM 2.38 MG/DL (0.60-1.30); POTASSIUM 3.8 MMOL/L (3.6-5.0)
[2018-08-07] MEDS: inSUlin ASPART (NovoLOG) 1 UNIT/0.01 ML (CHARGE PER UNIT) SC SCH ×4 (06:00→20:13)
[2018-08-07] MEDS: CATHETER FLUSH 10 ML SYR IV SCH ×3 (07:47→21:55)
[2018-08-07] MEDS: FUROSEMIDE 40 MG/4 ML INJ (LASIX) IV SCH ×2 (07:47→15:01)
[2018-08-07 08:00] VITALS: BP 125/75
[2018-08-07] MEDS: RT-ALBUTEROL SULF 2.5 MG/3 ML PRE-MIX VIAL INH SCH ×2 (08:06→19:58)
[2018-08-07 08:09] VITALS: BP 125/75
[2018-08-07] MEDS: meTOprolol TARTRATE 25 MG (LOPRESSOR) TABLET PO SCH (09:14)
[2018-08-07] MEDS: GABAPENTIN 300 MG (NEURONTIN) CAP PO SCH ×2 (09:14→20:14)
[2018-08-07] MEDS: MENTHOL/ZINC OXIDE (CALMOSEPTINE) 113 GM TUBE TOP SCH ×2 (09:15→20:15)
[2018-08-07] MEDS: ACETAMINOPHEN 500 MG TAB (TYLENOL) PO PRN ×2 (09:20→17:50)
[2018-08-07 12:00] VITALS: BP 117/74
--- NOTE | 2018-08-07 12:10 | Progress Note-Hospitalist ---
Subjective HPI/CC On Admission Date Seen by Provider: Aug 07, 2018 Time Seen by Provider: 11:30 Subjective/Events-last exam Patient doing about the same Change pain medication to make her legs more comfortable Creatinine at baseline Increased hydrocodone Dementia precludes any other details Review of Systems Musculoskeletal: leg pain Objective Exam Vital Signs Vital Signs Date Time Temp Pulse Resp B/P (MAP) Pulse Ox O2 Delivery O2 Flow Rate FiO2 08/07/18 12:00 98.1 65 20 117/74 (88) 97 Nasal Cannula 2.00 08/07/18 08:09 21 Capillary Refill : Less Than 3 Seconds General Appearance: No Apparent Distress, WD/WN, Chronically ill Respiratory: Chest Non Tender, Lungs Clear, Normal Breath Sounds, No Accessory Muscle Use, No Respiratory Distress Cardiovascular: Regular Rate, Rhythm, No Edema, No Gallop, No JVD, No Murmur, Normal Peripheral Pulses Extremity: Other (venous stasis dermatitis) Neurologic/Psychiatric: Alert, No Motor/Sensory Deficits, Normal Mood/Affect, Disoriented Results/Procedures Lab Laboratory Tests 08/07/18 04:20 Patient resulted labs reviewed. Assessment/Plan Assessment and Plan Assess & Plan/Chief Complaint Assessment per PCP: Fluid overload. Congestive heart failure. Bilateral pleural effusion. Coronary artery disease. COPD. UTI. Chronic renal failure. Weakness and fatigue. Short of breath. Diabetes. Tobaccoism Plan: Supportive care Dementia precludes reasonable behavior Clinical Quality Measures DVT/VTE Risk/Contraindication: Risk Factor Score Per Nursin RFS Level Per Nursing on Admit: 4+=Very High Contraindications-Mechi: Other *list below* EZEKIEL CHOUDHARY DO Aug 07, 2018 12:10
--- NOTE | 2018-08-07 14:11 | Progress Note-Cardiology ---
Cardiology SOAP Progress Note Subjective: Main symptom currently is bilateral leg discomfort that is quite uncomfortable/ painful to her Has shortness of breath, but this is somewhat better No cp or palp or syncope Objective: I&O/Vital Signs 08/07/18 08/07/18 08/07/18 08/07/18 04:00 08:00 08:00 08:07 Temp 97.8 97.9 Pulse 83 97 Resp 20 18 B/P (MAP) 117/61 (79) 125/75 (92) Pulse Ox 91 92 94 90 O2 Delivery Room Air Nasal Cannula Room Air O2 Flow Rate 2.00 2.00 08/07/18 08/07/18 08:09 12:00 Temp 98.1 Pulse 97 65 Resp 20 B/P (MAP) 117/74 (88) Pulse Ox 90 97 O2 Delivery Nasal Cannula O2 Flow Rate 2.00 FiO2 21 08/07/18 00:00 Intake Total 1680 ml Output Total 1052 ml Balance 628 ml Weight (Pounds): 189 Weight (Ounces): 5.0 Weight (Calculated Kilograms): 85.360473 Constitutional: AAO x 3; No apparent distress; well-developed, well-nourished Respiratory: No accessory muscle use, No respiratory distress; chest expansion is symmetric, chest is bilaterally symmetric, rhonchi (scattered), other ( prolonged exp phase) Cardiovascular: regular rate-rhythm; No JVD; S1 and S2, systolic murmur Gastrointestional: soft, round, audible bowel sounds Extremities: other (bilat LE extremity edema (2+); bilat LE ruddish from the knees to the ankles) Neurologic/Psychiatric: oriented x 3, grossly intact Skin: other Results/Procedures: Labs Laboratory Tests 08/06/18 14:43: Glucometer 362H 08/06/18 19:23: Glucometer 388H 08/07/18 04:20: White Blood Count 5.0, Red Blood Count 3.56L, Hemoglobin 9.0L, Hematocrit 29L, Mean Corpuscular Volume 82, Mean Corpuscular Hemoglobin 25, Mean Corpuscular Hemoglobin Concent 31L, Red Cell Distribution Width 18.0H, Platelet Count 252, Mean Platelet Volume 9.9, Neutrophils (%) (Auto) 64, Lymphocytes (%) (Auto) 18, Monocytes (%) (Auto) 15H, Eosinophils (%) (Auto) 3, Basophils (%) (Auto) 1, Neutrophils # (Auto) 3.2, Lymphocytes # (Auto) 0.9L, Monocytes # (Auto) 0.7, Eosinophils # (Auto) 0.1, Basophils # (Auto) 0.0, Sodium Level 137, Potassium Level 3.8, Chloride Level 100, Carbon Dioxide Level 22, Anion Gap 15H, Blood Urea Nitrogen 48H, Creatinine 2.38H, Estimat Glomerular Filtration Rate 20, BUN/ Creatinine Ratio 20, Glucose Level 110H, Calcium Level 8.5 08/07/18 09:46: Glucometer 248H Microbiology 08/04/18 Urine Culture - Final, Complete NO GROWTH Laboratory Tests 08/06/18 04:20 08/07/18 04:20 A/P: Assessment: Pneumonia - management per Med Svce 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 The procedure showed severe proximal LAD disease, proximal occlusion of the ramus intermedius and moderately to severe long stenosis in the proximal portion of the circumflex artery, patent stents in the proximal and distal right coronary artery known to have 3 stents Taxus, moderately to severe stenosis in a small caliber PDA from the RCA, occlusion of the vein graft to the right ramus intermedius underwent balloon angioplasty using 2.012 mm stent at the site of insertion of the graft to the ramus intermedius then Alpine 3 x 38 stent in the proximal and midportion of the graft, patent HUFF to LAD, ejection fraction 50 percent, had another angioplasty in October 2017 for occlusion of the vein graft to the ramus intermedius, was transferred in (most recent cardiac cath ) June 2018 to [place] after having myocardial infarction and reported that she had 2 stents placed while she was in the hospital - details of the most recent stenting unknown Generalized weakness and fatigue. History of hyponatremia Normal left ventricular size with ejection fraction 45-50 percent, anteroseptal hypokinesis to akinesis, mild MR, TR, PA pressure 30-35 mmHg, grade 1 diastolic dysfunction by echo in October 2017. Diabetes mellitus, followed and managed by primary care physician Peripheral neuropathy, probably diabetic, no change from baseline Bilateral leg swelling and chronic leg weakness, feet discomfort Tobaccoism Plan: * Complex management * Further increase diuretics while closely monitoring her labs * I spoke with her and answered CV related questions DORA HASSAN MD FACP FACC CCDS Aug 07, 2018 14:11
[2018-08-07] MEDS: ENOXAPARIN 30 MG/0.3 ML (LOVENOX) SYR SC SCH (14:56)
[2018-08-07 16:40] VITALS: BP 125/73
[2018-08-07] MEDS: A & D OINT 60 GM TUBE TOP PRN ×2 (17:48→20:14)
[2018-08-07 19:10] VITALS: BP 115/58
[2018-08-07] MEDS: ATORVASTATIN 80 MG (LIPITOR) TABLET PO SCH (20:14)
[2018-08-07] MEDS: ASPIRIN E.C. 81 MG (ECOTRIN) TAB PO SCH (20:14)
[2018-08-07] MEDS: SERTRALINE 50 MG (ZOLOFT) TABLET PO SCH (20:14)
[2018-08-07] MEDS: CLOPIDOGREL 75 MG (PLAVIX) TABLET PO SCH (20:14)
[2018-08-08 00:15] VITALS: BP 104/54
[2018-08-08 04:00] VITALS: BP 125/64
[2018-08-08] MEDS: inSUlin ASPART (NovoLOG) 1 UNIT/0.01 ML (CHARGE PER UNIT) SC SCH ×4 (05:48→22:26)
[2018-08-08 06:24] LABS: BASOPHILS % (AUTO) 1 % (0-10); EOSINOPHILS # (AUTO) 0.1 10^3/uL (0.0-0.3); EOSINOPHILS % (AUTO) 3 % (0-10); HEMATOCRIT 28 % (35-52); HEMOGLOBIN 8.8 G/DL (11.5-16.0); LYMPHOCYTES # (AUTO) 0.9 X 10^3 (1.0-4.0); LYMPHOCYTES % (AUTO) 18 % (12-44); MEAN CORPUSCULAR HEMOGLOBIN 25 PG (25-34); MEAN CORPUSCULAR HGB CONC 31 G/DL (32-36); MEAN CORPUSCULAR VOLUME 82 FL (80-99); MEAN PLATELET VOLUME 10.1 FL (7.4-10.4); MONOCYTES # (AUTO) 0.7 X 10^3 (0.0-1.0); MONOCYTES % (AUTO) 13 % (0-12); NEUTROPHILS # (AUTO) 3.2 X 10^3 (1.8-7.8); NEUTROPHILS % (AUTO) 66 % (42-75); PLATELET COUNT 236 10^3/uL (130-400); RED CELL DISTRIBUTION WIDTH 17.7 % (10.0-14.5); WHITE BLOOD COUNT 4.9 10^3/uL (4.3-11.0)
[2018-08-08 06:42] LABS: CALCIUM 8.5 MG/DL (8.5-10.1); CREATININE SERUM 2.47 MG/DL (0.60-1.30); POTASSIUM 3.7 MMOL/L (3.6-5.0)
[2018-08-08] MEDS: CATHETER FLUSH 10 ML SYR IV SCH ×3 (06:45→20:57)
[2018-08-08] MEDS: FUROSEMIDE 40 MG/4 ML INJ (LASIX) IV SCH ×2 (06:45→17:08)
[2018-08-08 07:37] VITALS: BP 120/77
--- NOTE | 2018-08-08 07:39 | Progress Note (SOAP) ---
Subjective Time Seen by a Provider: 07:36 Subjective/Events-last exam Patient gained 5 pounds. 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 Patient does not know the year. GFR is 19. Coronary artery disease. Diabetes. Patient not improving Objective Exam Vital Signs Date Time Temp Pulse Resp B/P (MAP) Pulse Ox O2 Delivery O2 Flow Rate FiO2 08/08/18 04:00 97.8 78 20 125/64 (84) 94 Room Air 08/08/18 00:15 97.4 68 20 104/54 (71) 94 Room Air 08/07/18 20:00 94 Room Air 08/07/18 19:10 97.0 74 20 115/58 (77) 6 Room Air 08/07/18 16:40 97.5 74 20 125/73 (90) 96 Nasal Cannula 2.00 08/07/18 12:00 98.1 65 20 117/74 (88) 97 Nasal Cannula 2.00 08/07/18 08:09 97 90 21 08/07/18 08:07 90 Room Air 08/07/18 08:00 97.9 97 18 125/75 (92) 94 Nasal Cannula 2.00 08/07/18 08:00 92 Room Air 2.00 I & O 08/08/18 07:00 Intake Total 1950 ml Output Total 1050 ml Balance 900 ml Capillary Refill : Less Than 3 Seconds General Appearance: No Apparent Distress, WD/WN HEENT: Normal ENT Inspection Neck: Full Range of Motion, Normal Inspection Respiratory: No Accessory Muscle Use, No Respiratory Distress, Decreased Breath Sounds Cardiovascular: Regular Rate, Rhythm, No Murmur Gastrointestinal: non tender, soft Extremity: Pedal Edema, Other (Leg swallowing) Results Lab Laboratory Tests 08/08/18 05:48 Laboratory Tests 08/07/18 09:46: Glucometer 248H 08/07/18 14:27: Glucometer 256H 08/07/18 19:54: Glucometer 202H 08/08/18 05:47: Glucometer 173H 08/08/18 05:48: White Blood Count 4.9, Red Blood Count 3.48L, Hemoglobin 8.8L, Hematocrit 28L, Mean Corpuscular Volume 82, Mean Corpuscular Hemoglobin 25, Mean Corpuscular Hemoglobin Concent 31L, Red Cell Distribution Width 17.7H, Platelet Count 236, Mean Platelet Volume 10.1, Neutrophils (%) (Auto) 66, Lymphocytes (%) (Auto) 18 , Monocytes (%) (Auto) 13H, Eosinophils (%) (Auto) 3, Basophils (%) (Auto) 1, Neutrophils # (Auto) 3.2, Lymphocytes # (Auto) 0.9L, Monocytes # (Auto) 0.7, Eosinophils # (Auto) 0.1, Basophils # (Auto) 0.0, Sodium Level 135, Potassium Level 3.7, Chloride Level 99, Carbon Dioxide Level 20L, Anion Gap 16H, Blood Urea Nitrogen 49H, Creatinine 2.47H, Estimat Glomerular Filtration Rate 19, BUN/ Creatinine Ratio 20, Glucose Level 150H, Calcium Level 8.5 Microbiology 08/04/18 Urine Culture - Final, Complete NO GROWTH Assessment/Plan Assessment/Plan Assess & Plan/Chief Complaint Acute on chronic systolic/ diastolic congestive heart failure. Chronic renal insufficiency. Diabetes. Dementia. Coronary artery disease. History of CABG. History of tobaccoism Clinical Quality Measures Admission Status Admission Dx Fluid overload. Congestive heart failure. Bilateral pleural effusion. Coronary artery disease. COPD. UTI. Chronic renal failure. Weakness and fatigue. Short of breath. Diabetes. Tobaccoism DVT/VTE Risk/Contraindication: Risk Factor Score Per Nursin RFS Level Per Nursing on Admit: 4+=Very High Contraindications-Mechi: Other *list below* MERRICK SIEGEL DO Aug 08, 2018 07:39
[2018-08-08] MEDS ORDERED: METOLAZONE 5 MG (ZAROXOLYN) TAB PO NR (08:15)
[2018-08-08] MEDS: GABAPENTIN 300 MG (NEURONTIN) CAP PO SCH ×2 (08:34→20:56)
[2018-08-08] MEDS: meTOprolol TARTRATE 25 MG (LOPRESSOR) TABLET PO SCH (08:34)
[2018-08-08] MEDS: MENTHOL/ZINC OXIDE (CALMOSEPTINE) 113 GM TUBE TOP SCH ×2 (08:35→20:57)
--- NOTE | 2018-08-08 08:37 | NUR ---
prior to a.m. medications pulse was 83 b/p was 120/77
[2018-08-08] MEDS ORDERED: FUROSEMIDE 40 MG/4 ML INJ (LASIX) IVP NR (08:45)
[2018-08-08] MEDS ORDERED: KCL 10 MEQ TAB (MICRO K) PO NR (08:45)
[2018-08-08] MEDS: HYDROcodone/APAP 5 MG/325 MG (LORTAB) TAB PO PRN ×3 (09:04→20:56)
[2018-08-08] MEDS: RT-ALBUTEROL SULF 2.5 MG/3 ML PRE-MIX VIAL INH SCH ×2 (09:34→22:10)
--- NOTE | 2018-08-08 09:53 | Diagnostic Imaging Report ---
INDICATION: Shortness of air. COMPARISON: 08/06/2018 FINDINGS: Single frontal radiographic view of the chest was obtained and again demonstrates mild cardiomegaly and pulmonary vascular congestion. There is also persistent diffuse interstitial pulmonary edema and moderate bibasilar effusions. There is no pneumothorax. Bony structures show no gross acute abnormalities. Sternotomy wires are noted. IMPRESSION: 1. Stable exam of the chest showing cardiomegaly with pulmonary vascular congestion, pulmonary edema, and bilateral pleural effusions. Dictated by: Dictated on workstation # [id number]
--- NOTE | 2018-08-08 11:26 | Progress Note-Cardiology ---
Cardiology SOAP Progress Note Subjective: No shortness of breath at rest Persistent leg swelling and discomfort No palp or syncope or cp Objective: I&O/Vital Signs 08/08/18 08/08/18 08/08/18 08/08/18 00:15 04:00 07:37 08:00 Temp 97.4 97.8 98.3 Pulse 68 78 83 Resp 20 20 20 B/P (MAP) 104/54 (71) 125/64 (84) 120/77 (91) Pulse Ox 94 94 100 100 O2 Delivery Room Air Room Air Room Air Room Air O2 Flow Rate 3.00 08/08/18 09:34 Pulse Ox 99 O2 Delivery Nasal Cannula O2 Flow Rate 2.00 08/08/18 00:00 Intake Total 1800 ml Output Total 650 ml Balance 1150 ml Weight (Pounds): 194 Weight (Ounces): 5.0 Weight (Calculated Kilograms): 87.685589 Constitutional: AAO x 3; No apparent distress; well-developed, well-nourished Respiratory: No accessory muscle use, No respiratory distress; chest expansion is symmetric, chest is bilaterally symmetric, rhonchi (scattered), other ( prolonged exp phase) Cardiovascular: regular rate-rhythm; No JVD; S1 and S2, systolic murmur Gastrointestional: soft, round, audible bowel sounds Extremities: other (bilat LE extremity edema (2+); bilat LE ruddish from the knees to the ankles) Neurologic/Psychiatric: oriented x 3, grossly intact Skin: other Results/Procedures: Labs Laboratory Tests 08/07/18 14:27: Glucometer 256H 08/07/18 19:54: Glucometer 202H 08/08/18 05:47: Glucometer 173H 08/08/18 05:48: White Blood Count 4.9, Red Blood Count 3.48L, Hemoglobin 8.8L, Hematocrit 28L, Mean Corpuscular Volume 82, Mean Corpuscular Hemoglobin 25, Mean Corpuscular Hemoglobin Concent 31L, Red Cell Distribution Width 17.7H, Platelet Count 236, Mean Platelet Volume 10.1, Neutrophils (%) (Auto) 66, Lymphocytes (%) (Auto) 18 , Monocytes (%) (Auto) 13H, Eosinophils (%) (Auto) 3, Basophils (%) (Auto) 1, Neutrophils # (Auto) 3.2, Lymphocytes # (Auto) 0.9L, Monocytes # (Auto) 0.7, Eosinophils # (Auto) 0.1, Basophils # (Auto) 0.0, Sodium Level 135, Potassium Level 3.7, Chloride Level 99, Carbon Dioxide Level 20L, Anion Gap 16H, Blood Urea Nitrogen 49H, Creatinine 2.47H, Estimat Glomerular Filtration Rate 19, BUN/ Creatinine Ratio 20, Glucose Level 150H, Calcium Level 8.5 08/08/18 10:31: Glucometer 320H Microbiology 08/04/18 Urine Culture - Final, Complete NO GROWTH Laboratory Tests 08/07/18 04:20 08/08/18 05:48 A/P: Assessment: Pneumonia - management per Med Svce 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 The procedure showed severe proximal LAD disease, proximal occlusion of the ramus intermedius and moderately to severe long stenosis in the proximal portion of the circumflex artery, patent stents in the proximal and distal right coronary artery known to have 3 stents Taxus, moderately to severe stenosis in a small caliber PDA from the RCA, occlusion of the vein graft to the right ramus intermedius underwent balloon angioplasty using 2.012 mm stent at the site of insertion of the graft to the ramus intermedius then Alpine 3 x 38 stent in the proximal and midportion of the graft, patent HUFF to LAD, ejection fraction 50 percent, had another angioplasty in October 2017 for occlusion of the vein graft to the ramus intermedius, was transferred in (most recent cardiac cath ) June 2018 to [place] after having myocardial infarction and reported that she had 2 stents placed while she was in the hospital - details of the most recent stenting unknown Generalized weakness and fatigue. History of hyponatremia Normal left ventricular size with ejection fraction 45-50 percent, anteroseptal hypokinesis to akinesis, mild MR, TR, PA pressure 30-35 mmHg, grade 1 diastolic dysfunction by echo in October 2017. Diabetes mellitus, followed and managed by primary care physician Peripheral neuropathy, probably diabetic, no change from baseline Bilateral leg swelling with discomfort, and chronic leg weakness Tobaccoism Plan: * Complex management * What bothers her the most is leg swelling and discomfort: Further increase diuretics (adding metolazone) while closely monitoring her labs * I spoke with her and answered CV related questions DORA HASSAN MD FACP FACC CCDS Aug 08, 2018 11:26
[2018-08-08 11:38] VITALS: BP 115/60
[2018-08-08 15:32] VITALS: BP 123/68
[2018-08-08] MEDS: ENOXAPARIN 30 MG/0.3 ML (LOVENOX) SYR SC SCH (15:39)
[2018-08-08 20:01] VITALS: BP 117/68
[2018-08-08] MEDS: CLOPIDOGREL 75 MG (PLAVIX) TABLET PO SCH (20:55)
[2018-08-08] MEDS: ATORVASTATIN 80 MG (LIPITOR) TABLET PO SCH (20:55)
[2018-08-08] MEDS: SERTRALINE 50 MG (ZOLOFT) TABLET PO SCH (20:56)
[2018-08-08] MEDS: ASPIRIN E.C. 81 MG (ECOTRIN) TAB PO SCH (20:56)
[2018-08-09 00:13] VITALS: BP 126/66
[2018-08-09] MEDS: HYDROcodone/APAP 5 MG/325 MG (LORTAB) TAB PO PRN ×4 (01:03→21:26)
[2018-08-09 04:00] VITALS: BP 112/60
[2018-08-09] MEDS: METOLAZONE 5 MG (ZAROXOLYN) TAB PO SCH (06:06)
[2018-08-09] MEDS: inSUlin ASPART (NovoLOG) 1 UNIT/0.01 ML (CHARGE PER UNIT) SC SCH ×4 (06:07→21:20)
[2018-08-09] MEDS: CATHETER FLUSH 10 ML SYR IV SCH ×3 (06:07→21:20)
[2018-08-09] MEDS: FUROSEMIDE 40 MG/4 ML INJ (LASIX) IV SCH (06:37)
[2018-08-09 06:46] LABS: BASOPHILS % (AUTO) 1 % (0-10); EOSINOPHILS # (AUTO) 0.2 10^3/uL (0.0-0.3); EOSINOPHILS % (AUTO) 3 % (0-10); HEMATOCRIT 28 % (35-52); HEMOGLOBIN 8.5 G/DL (11.5-16.0); LYMPHOCYTES # (AUTO) 1.1 X 10^3 (1.0-4.0); LYMPHOCYTES % (AUTO) 24 % (12-44); MEAN CORPUSCULAR HEMOGLOBIN 25 PG (25-34); MEAN CORPUSCULAR HGB CONC 31 G/DL (32-36); MEAN CORPUSCULAR VOLUME 82 FL (80-99); MONOCYTES # (AUTO) 0.9 X 10^3 (0.0-1.0); MONOCYTES % (AUTO) 19 % (0-12); NEUTROPHILS # (AUTO) 2.6 X 10^3 (1.8-7.8); NEUTROPHILS % (AUTO) 54 % (42-75); PLATELET COUNT 225 10^3/uL (130-400); RED CELL DISTRIBUTION WIDTH 17.7 % (10.0-14.5); WHITE BLOOD COUNT 4.8 10^3/uL (4.3-11.0)
[2018-08-09 07:06] LABS: CALCIUM 8.5 MG/DL (8.5-10.1); CREATININE SERUM 2.6 MG/DL (0.60-1.30); POTASSIUM 3.9 MMOL/L (3.6-5.0)
[2018-08-09] MEDS: KCL 10 MEQ TAB (MICRO K) PO SCH (07:14)
--- NOTE | 2018-08-09 08:10 | Progress Note (SOAP) ---
Subjective Time Seen by a Provider: 08:07 Subjective/Events-last exam Patient has swelling of feet and legs. Patient voices no complaints. GFR 18 today. Patient on metolazone. Patient should lose weight tomorrow Objective Exam Vital Signs Date Time Temp Pulse Resp B/P (MAP) Pulse Ox O2 Delivery O2 Flow Rate FiO2 08/09/18 04:00 96.2 73 18 112/60 (77) 93 Nasal Cannula 3.00 08/09/18 00:13 98.3 78 20 126/66 (86) 98 Nasal Cannula 3.00 08/08/18 20:01 97.8 79 16 117/68 (84) 99 Room Air 08/08/18 20:00 Room Air 3.00 08/08/18 15:32 97.9 71 20 123/68 (86) 100 Nasal Cannula 3.00 08/08/18 11:38 98.4 67 20 115/60 (78) 98 Nasal Cannula 3.00 08/08/18 09:34 99 Nasal Cannula 2.00 I & O 08/09/18 07:00 Intake Total 2000 ml Output Total 2775 ml Balance -775 ml Capillary Refill : Less Than 3 Seconds General Appearance: No Apparent Distress, WD/WN HEENT: Normal ENT Inspection Neck: Normal Inspection Respiratory: Decreased Breath Sounds, Wheezing Cardiovascular: Regular Rate, Rhythm, No Murmur Gastrointestinal: non tender Results Lab Laboratory Tests 08/09/18 06:20 Laboratory Tests 08/08/18 10:31: Glucometer 320H 08/08/18 13:28: Glucometer 235H 08/08/18 15:31: Glucometer 238H 08/08/18 21:35: Glucometer 253H 08/09/18 06:00: Glucometer 128H 08/09/18 06:20: White Blood Count 4.8, Red Blood Count 3.38L, Hemoglobin 8.5L, Hematocrit 28L, Mean Corpuscular Volume 82, Mean Corpuscular Hemoglobin 25, Mean Corpuscular Hemoglobin Concent 31L, Red Cell Distribution Width 17.7H, Platelet Count 225, Mean Platelet Volume 10.0, Neutrophils (%) (Auto) 54, Lymphocytes (%) (Auto) 24 , Monocytes (%) (Auto) 19H, Eosinophils (%) (Auto) 3, Basophils (%) (Auto) 1, Neutrophils # (Auto) 2.6, Lymphocytes # (Auto) 1.1, Monocytes # (Auto) 0.9, Eosinophils # (Auto) 0.2, Basophils # (Auto) 0.0, Sodium Level 135, Potassium Level 3.9, Chloride Level 98, Carbon Dioxide Level 22, Anion Gap 15H, Blood Urea Nitrogen 51H, Creatinine 2.60H, Estimat Glomerular Filtration Rate 18, BUN/ Creatinine Ratio 20, Glucose Level 116H, Calcium Level 8.5 Microbiology 08/04/18 Urine Culture - Final, Complete NO GROWTH Assessment/Plan Assessment/Plan Assess & Plan/Chief Complaint Acute on chronic systolic/ diastolic congestive heart failure. Chronic renal insufficiency. Diabetes. Dementia. Coronary artery disease. History of CABG. History of tobaccoism. . 08/09/18. Acute and chronic systolic/diastolic congestive heart failure. Chronic renal insufficiency. Diabetes. Dementia. Coronary artery disease. History of tobaccoism. History of CABG. Pretibial edema. Pleural effusion Clinical Quality Measures Admission Status Admission Dx Fluid overload. Congestive heart failure. Bilateral pleural effusion. Coronary artery disease. COPD. UTI. Chronic renal failure. Weakness and fatigue. Short of breath. Diabetes. Tobaccoism DVT/VTE Risk/Contraindication: Risk Factor Score Per Nursin RFS Level Per Nursing on Admit: 4+=Very High Contraindications-Mechi: Other *list below* MERRICK SIEGEL DO Aug 09, 2018 08:10
[2018-08-09] MEDS: meTOprolol TARTRATE 25 MG (LOPRESSOR) TABLET PO SCH (08:28)
[2018-08-09] MEDS: GABAPENTIN 300 MG (NEURONTIN) CAP PO SCH ×2 (08:29→21:21)
[2018-08-09] MEDS: MENTHOL/ZINC OXIDE (CALMOSEPTINE) 113 GM TUBE TOP SCH ×2 (08:29→21:21)
[2018-08-09 08:53] VITALS: BP 130/67
[2018-08-09] MEDS: RT-ALBUTEROL SULF 2.5 MG/3 ML PRE-MIX VIAL INH SCH ×2 (10:12→21:42)
[2018-08-09 11:40] VITALS: BP 109/59
--- NOTE | 2018-08-09 12:29 | Progress Note-Cardiology ---
Cardiology SOAP Progress Note Subjective: Sitting up in bed with continue c/o LE swelling. No c/o CP, dyspnea, palpitations. Objective: I&O/Vital Signs 08/09/18 08/09/18 08/09/18 08/09/18 08:00 08:53 10:12 11:40 Temp 98.0 97.8 Pulse 77 69 Resp 18 18 B/P (MAP) 130/67 (88) 109/59 (76) Pulse Ox 100 100 98 90 O2 Delivery Nasal Cannula Nasal Cannula Nasal Cannula Room Air O2 Flow Rate 3.00 3.00 2.00 08/09/18 15:54 Temp 97.6 Pulse 70 Resp 16 B/P (MAP) 124/75 (91) Pulse Ox 92 O2 Delivery Room Air 08/09/18 00:00 Intake Total 1500 ml Output Total 1625 ml Balance -125 ml Weight (Pounds): 193 Weight (Ounces): 6.0 Weight (Calculated Kilograms): 87.641029 Constitutional: AAO x 3; No apparent distress; well-developed, well-nourished Respiratory: No accessory muscle use, No respiratory distress; chest expansion is symmetric, chest is bilaterally symmetric, rhonchi (scattered), other ( prolonged exp phase) Cardiovascular: regular rate-rhythm; No JVD; S1 and S2, systolic murmur Gastrointestional: soft, round, audible bowel sounds Extremities: other (bilat LE extremity edema (2+); bilat LE ruddish from the knees to the ankles) Neurologic/Psychiatric: oriented x 3, grossly intact Skin: other Results/Procedures: Labs Laboratory Tests 08/08/18 21:35: Glucometer 253H 08/09/18 06:00: Glucometer 128H 08/09/18 06:20: White Blood Count 4.8, Red Blood Count 3.38L, Hemoglobin 8.5L, Hematocrit 28L, Mean Corpuscular Volume 82, Mean Corpuscular Hemoglobin 25, Mean Corpuscular Hemoglobin Concent 31L, Red Cell Distribution Width 17.7H, Platelet Count 225, Mean Platelet Volume 10.0, Neutrophils (%) (Auto) 54, Lymphocytes (%) (Auto) 24 , Monocytes (%) (Auto) 19H, Eosinophils (%) (Auto) 3, Basophils (%) (Auto) 1, Neutrophils # (Auto) 2.6, Lymphocytes # (Auto) 1.1, Monocytes # (Auto) 0.9, Eosinophils # (Auto) 0.2, Basophils # (Auto) 0.0, Sodium Level 135, Potassium Level 3.9, Chloride Level 98, Carbon Dioxide Level 22, Anion Gap 15H, Blood Urea Nitrogen 51H, Creatinine 2.60H, Estimat Glomerular Filtration Rate 18, BUN/ Creatinine Ratio 20, Glucose Level 116H, Calcium Level 8.5 08/09/18 12:39: Glucometer 259H 08/09/18 15:52: Glucometer 316H Microbiology 08/04/18 Urine Culture - Final, Complete NO GROWTH A/P: Assessment: Pneumonia - management per Med Svce 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 The procedure showed severe proximal LAD disease, proximal occlusion of the ramus intermedius and moderately to severe long stenosis in the proximal portion of the circumflex artery, patent stents in the proximal and distal right coronary artery known to have 3 stents Taxus, moderately to severe stenosis in a small caliber PDA from the RCA, occlusion of the vein graft to the right ramus intermedius underwent balloon angioplasty using 2.012 mm stent at the site of insertion of the graft to the ramus intermedius then Alpine 3 x 38 stent in the proximal and midportion of the graft, patent HUFF to LAD, ejection fraction 50 percent, had another angioplasty in October 2017 for occlusion of the vein graft to the ramus intermedius, was transferred in (most recent cardiac cath ) June 2018 to [place] after having myocardial infarction and reported that she had 2 stents placed while she was in the hospital - details of the most recent stenting unknown Most recent echocardiogram at [facility] on 07-03-[address] Hope showed LVEF 25% Normal left ventricular size with ejection fraction 45-50 percent, anteroseptal hypokinesis to akinesis, mild MR, TR, PA pressure 30-35 mmHg, grade 1 diastolic dysfunction by echo in October 2017. ICM Generalized weakness and fatigue. History of hyponatremia Diabetes mellitus, followed and managed by primary care physician Peripheral neuropathy, probably diabetic, no change from baseline Bilateral leg swelling with discomfort, and chronic leg weakness Tobaccoism Plan: * Complex management * What bothers her the most is leg swelling and discomfort: which is persistent despite increase in diuretic regimen * D/t worsening renal function we will reduce her diuretic regimen * Echocardiogram from [facility] on 07-03-[address] Hope reviewed which showed LVEF 25% * Repeat echocardiogram * Monitor lab closely * Not a suitable candidate for TAM or ARB d/t worsening renal function * We have not received cardiac cath report from [place] yet Physician Assessment Physician Assessment No shortness of breath at rest. Leg swelling persistent, but leg discomfort is improved Lungs: fair bilat air entry Cor: reg Ext: Bilat leg swelling, mod. Redness of legs has improved A&R * As documented in our note above that I updated (italics) and as noted below * Diuretic reduced today because of worsening renal function * Monitor labs * I discussed his CV issues with her answered questions JERARDO SCHWARTZ Aug 09, 2018 12:29 DORA HASSAN MD FACP FAC CCDS Aug 09, 2018 19:01
[2018-08-09] MEDS: ENOXAPARIN 30 MG/0.3 ML (LOVENOX) SYR SC SCH (15:26)
[2018-08-09 15:54] VITALS: BP 124/75
[2018-08-09 19:56] VITALS: BP 115/66
[2018-08-09] MEDS: ASPIRIN E.C. 81 MG (ECOTRIN) TAB PO SCH (21:20)
[2018-08-09] MEDS: ATORVASTATIN 80 MG (LIPITOR) TABLET PO SCH (21:20)
[2018-08-09] MEDS: SERTRALINE 50 MG (ZOLOFT) TABLET PO SCH (21:20)
[2018-08-09] MEDS: CLOPIDOGREL 75 MG (PLAVIX) TABLET PO SCH (21:20)
[2018-08-10] VITALS: BP 116/65
[2018-08-10] MEDS: inSUlin ASPART (NovoLOG) 1 UNIT/0.01 ML (CHARGE PER UNIT) SC SCH ×4 (05:46→20:56)
[2018-08-10] MEDS: CATHETER FLUSH 10 ML SYR IV SCH ×3 (05:46→20:57)
[2018-08-10 05:49] LABS: BASOPHILS % (AUTO) 0 % (0-10); EOSINOPHILS # (AUTO) 0.1 10^3/uL (0.0-0.3); EOSINOPHILS % (AUTO) 2 % (0-10); HEMATOCRIT 27 % (35-52); HEMOGLOBIN 8.2 G/DL (11.5-16.0); LYMPHOCYTES % (AUTO) 20 % (12-44); MEAN CORPUSCULAR HEMOGLOBIN 25 PG (25-34); MEAN CORPUSCULAR HGB CONC 31 G/DL (32-36); MEAN CORPUSCULAR VOLUME 81 FL (80-99); MEAN PLATELET VOLUME 10.3 FL (7.4-10.4); MONOCYTES # (AUTO) 0.8 X 10^3 (0.0-1.0); MONOCYTES % (AUTO) 17 % (0-12); NEUTROPHILS # (AUTO) 3.1 X 10^3 (1.8-7.8); NEUTROPHILS % (AUTO) 61 % (42-75); PLATELET COUNT 246 10^3/uL (130-400); RED CELL DISTRIBUTION WIDTH 17.5 % (10.0-14.5)
[2018-08-10 06:25] LABS: ALBUMIN 3.2 GM/DL (3.2-4.5); BILIRUBIN,TOTAL 0.4 MG/DL (0.1-1.0); CALCIUM 8.7 MG/DL (8.5-10.1); CREATININE SERUM 2.91 MG/DL (0.60-1.30); POTASSIUM 3.4 MMOL/L (3.6-5.0); TOTAL PROTEIN 6.8 GM/DL (6.4-8.2)
[2018-08-10] MEDS: METOLAZONE 5 MG (ZAROXOLYN) TAB PO SCH (06:31)
[2018-08-10] MEDS: KCL 10 MEQ TAB (MICRO K) PO SCH (06:31)
[2018-08-10] MEDS: FUROSEMIDE 40 MG/4 ML INJ (LASIX) IVP SCH ×2 (07:00→08:35)
--- NOTE | 2018-08-10 08:11 | Progress Note (SOAP) ---
Subjective Time Seen by a Provider: 08:08 Subjective/Events-last exam Patient weighed approximately the same. GFR 16 slightly coming down. Patella sitting not working at this time. Patient not having any complaints. Swelling and legs minimally less Objective Exam Vital Signs Date Time Temp Pulse Resp B/P (MAP) Pulse Ox O2 Delivery O2 Flow Rate FiO2 08/10/18 00:00 97.6 79 16 116/65 (82) 94 Room Air 08/09/18 20:00 94 Room Air 08/09/18 19:56 98.0 76 14 115/66 (82) 94 Room Air 08/09/18 15:54 97.6 70 16 124/75 (91) 92 Room Air 08/09/18 11:40 97.8 69 18 109/59 (76) 90 Room Air 08/09/18 10:12 98 Nasal Cannula 2.00 08/09/18 08:53 98.0 77 18 130/67 (88) 100 Nasal Cannula 3.00 I & O 08/10/18 07:00 Intake Total 1050 ml Output Total 2200 ml Balance -1150 ml Capillary Refill : Less Than 3 Seconds General Appearance: No Apparent Distress, WD/WN HEENT: Normal ENT Inspection Neck: Full Range of Motion Respiratory: Lungs Clear, No Accessory Muscle Use, No Respiratory Distress, Decreased Breath Sounds Cardiovascular: Regular Rate, Rhythm, No Murmur Results Lab Laboratory Tests 08/10/18 05:10 Laboratory Tests 08/09/18 12:39: Glucometer 259H 08/09/18 15:52: Glucometer 316H 08/09/18 21:01: Glucometer 324H 08/10/18 05:10: White Blood Count 5.0, Red Blood Count 3.30L, Hemoglobin 8.2L, Hematocrit 27L, Mean Corpuscular Volume 81, Mean Corpuscular Hemoglobin 25, Mean Corpuscular Hemoglobin Concent 31L, Red Cell Distribution Width 17.5H, Platelet Count 246, Mean Platelet Volume 10.3, Neutrophils (%) (Auto) 61, Lymphocytes (%) (Auto) 20 , Monocytes (%) (Auto) 17H, Eosinophils (%) (Auto) 2, Basophils (%) (Auto) 0, Neutrophils # (Auto) 3.1, Lymphocytes # (Auto) 1.0, Monocytes # (Auto) 0.8, Eosinophils # (Auto) 0.1, Basophils # (Auto) 0.0, Sodium Level 136, Potassium Level 3.4L, Chloride Level 96L, Carbon Dioxide Level 26, Anion Gap 14, Blood Urea Nitrogen 59H, Creatinine 2.91H, Estimat Glomerular Filtration Rate 16, BUN/ Creatinine Ratio 20, Glucose Level 137H, Calcium Level 8.7, Corrected Calcium 9.3, Total Bilirubin 0.4, Aspartate Amino Transf (AST/SGOT) 25, Alanine Aminotransferase (ALT/SGPT) 13, Alkaline Phosphatase 104, Total Protein 6.8, Albumin 3.2 08/10/18 05:42: Glucometer 151H Microbiology 08/04/18 Urine Culture - Final, Complete NO GROWTH Assessment/Plan Assessment/Plan Assess & Plan/Chief Complaint Acute on chronic systolic/ diastolic congestive heart failure. Chronic renal insufficiency. Diabetes. Dementia. Coronary artery disease. History of CABG. History of tobaccoism. . 08/09/18. Acute and chronic systolic/diastolic congestive heart failure. Chronic renal insufficiency. Diabetes. Dementia. Coronary artery disease. History of tobaccoism. History of CABG. Pretibial edema. Pleural effusion. . 08/10/18 chronic renal insufficiency. Pretibial edema. Diabetes. Dementia. Coronary artery disease. History of tobaccoism. Pleural effusion. Patient not losing any weight and GFR coming down a little more Clinical Quality Measures Admission Status Admission Dx Fluid overload. Congestive heart failure. Bilateral pleural effusion. Coronary artery disease. COPD. UTI. Chronic renal failure. Weakness and fatigue. Short of breath. Diabetes. Tobaccoism DVT/VTE Risk/Contraindication: Risk Factor Score Per Nursin RFS Level Per Nursing on Admit: 4+=Very High Contraindications-Mechi: Other *list below* MERRICK SIEGEL DO Aug 10, 2018 08:11
--- NOTE | 2018-08-10 08:18 | Diagnostic Imaging Report ---
INDICATION: Congestive heart failure and confusion. Time of exam 4:07 AM Correlation is made with prior study from 08/08/2018. The heart is enlarged but stable. There are postop changes and median sternotomy and CABG. Moderate sized bilateral pleural effusions with associated compressive atelectasis in both lower lobes is again seen and appears similar to perhaps slightly improved when compared with 2 days earlier. The mid and upper lung bonilla remain clear. No pneumothorax is seen. IMPRESSION: Bibasilar atelectasis and moderate bilateral pleural effusions, showing some mild improvement when compared to examination 2 days earlier. Dictated by: Dictated on workstation # [id number]
[2018-08-10] MEDS: GABAPENTIN 300 MG (NEURONTIN) CAP PO SCH ×2 (08:36→20:56)
[2018-08-10] MEDS: HYDROcodone/APAP 5 MG/325 MG (LORTAB) TAB PO PRN ×2 (08:36→16:06)
[2018-08-10] MEDS: meTOprolol TARTRATE 25 MG (LOPRESSOR) TABLET PO SCH (08:36)
[2018-08-10] MEDS: A & D OINT 60 GM TUBE TOP PRN (08:41)
[2018-08-10] MEDS: MENTHOL/ZINC OXIDE (CALMOSEPTINE) 113 GM TUBE TOP SCH ×2 (08:41→20:56)
[2018-08-10 08:45] VITALS: BP 129/76
[2018-08-10 09:56] VITALS: BP 116/65
[2018-08-10] MEDS: RT-ALBUTEROL SULF 2.5 MG/3 ML PRE-MIX VIAL INH SCH ×2 (09:56→19:41)
--- NOTE | 2018-08-10 10:19 | Progress Note-Cardiology ---
Cardiology SOAP Progress Note Objective: I&O/Vital Signs 08/10/18 08/10/18 08/10/18 00:00 09:56 09:56 Temp 97.6 Pulse 79 72 Resp 16 B/P (MAP) 116/65 (82) Pulse Ox 94 95 95 O2 Delivery Room Air Room Air 08/09/18 23:59 Intake Total 950 ml Output Total 1300 ml Balance -350 ml Weight (Pounds): 195 Weight (Ounces): 0.0 Weight (Calculated Kilograms): 88.468040 Constitutional: AAO x 3; No apparent distress; well-developed, well-nourished Respiratory: No accessory muscle use, No respiratory distress; chest expansion is symmetric, chest is bilaterally symmetric, rhonchi (scattered), other ( prolonged exp phase) Cardiovascular: regular rate-rhythm; No JVD; S1 and S2, systolic murmur Gastrointestional: soft, round, audible bowel sounds Extremities: other (bilat LE extremity edema (2+); bilat LE ruddish from the knees to the ankles) Neurologic/Psychiatric: oriented x 3, grossly intact Skin: other Results/Procedures: Labs Laboratory Tests 08/09/18 12:39: Glucometer 259H 08/09/18 15:52: Glucometer 316H 08/09/18 21:01: Glucometer 324H 08/10/18 05:10: White Blood Count 5.0, Red Blood Count 3.30L, Hemoglobin 8.2L, Hematocrit 27L, Mean Corpuscular Volume 81, Mean Corpuscular Hemoglobin 25, Mean Corpuscular Hemoglobin Concent 31L, Red Cell Distribution Width 17.5H, Platelet Count 246, Mean Platelet Volume 10.3, Neutrophils (%) (Auto) 61, Lymphocytes (%) (Auto) 20 , Monocytes (%) (Auto) 17H, Eosinophils (%) (Auto) 2, Basophils (%) (Auto) 0, Neutrophils # (Auto) 3.1, Lymphocytes # (Auto) 1.0, Monocytes # (Auto) 0.8, Eosinophils # (Auto) 0.1, Basophils # (Auto) 0.0, Sodium Level 136, Potassium Level 3.4L, Chloride Level 96L, Carbon Dioxide Level 26, Anion Gap 14, Blood Urea Nitrogen 59H, Creatinine 2.91H, Estimat Glomerular Filtration Rate 16, BUN/ Creatinine Ratio 20, Glucose Level 137H, Calcium Level 8.7, Corrected Calcium 9.3, Total Bilirubin 0.4, Aspartate Amino Transf (AST/SGOT) 25, Alanine Aminotransferase (ALT/SGPT) 13, Alkaline Phosphatase 104, Total Protein 6.8, Albumin 3.2 08/10/18 05:42: Glucometer 151H 08/10/18 09:44: Glucometer 250H Microbiology 08/04/18 Urine Culture - Final, Complete NO GROWTH Laboratory Tests 08/09/18 06:20 08/10/18 05:10 A/P: Assessment: Pneumonia - management per Med Svce 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 The procedure showed severe proximal LAD disease, proximal occlusion of the ramus intermedius and moderately to severe long stenosis in the proximal portion of the circumflex artery, patent stents in the proximal and distal right coronary artery that is known to have 3 stents Taxus, moderately to severe stenosis in a small caliber PDA from the RCA, occlusion of the vein graft to the right ramus intermedius underwent balloon angioplasty using 2.012 mm stent at the site of insertion of the graft to the ramus intermedius then Alpine 3 x 38 stent in the proximal and midportion of the graft, patent HUFF to LAD, ejection fraction 50 percent, had another angioplasty in October 2017 for occlusion of the vein graft to the ramus intermedius, was transferred in (most recent cardiac cath ) June 2018 to [place] after having myocardial infarction and reported that she had 2 stents placed while she was in the hospital - we have not been able to obtain this report despite multiple requests Ischemic cardiomyopathy. Most recent echocardiogram on 08/09/18: LVEF 35%, conc LVH, mild LA enlargement, mod MR, mod to severe TR, PASP 25 mmHg, L pleural eff Generalized weakness and fatigue. History of hyponatremia Diabetes mellitus, followed and managed by primary care physician Peripheral neuropathy, probably diabetic, no change from baseline Bilateral leg swelling with discomfort, and chronic leg weakness Tobaccoism Plan: * Complex management * What bothers her the most is leg swelling and discomfort: which is persistent despite increase in diuretic regimen * D/t worsening renal function we will reduce her diuretic regimen (change furosemide to oral and d/c metolazone) * She wishes to go home. This may be reasonable to do if leg swelling doesn't worsen after switch to oral * Not a suitable candidate for TAM or ARB d/t worsening renal function * Outpt f/u advised post discharge DORA HASSAN MD FACP FACC CCDS Aug 10, 2018 10:19
[2018-08-10] MEDS ORDERED: KCL 20 MEQ TAB (K-DUR) PO ONE (10:30)
[2018-08-10 12:10] VITALS: BP 107/57
--- NOTE | 2018-08-10 15:03 | NUR ---
Attempted 2x to visit pt, pt was asleep.
[2018-08-10 16:00] VITALS: BP 128/68
[2018-08-10] MEDS: ENOXAPARIN 30 MG/0.3 ML (LOVENOX) SYR SC SCH (16:06)
[2018-08-10] MEDS: FUROSEMIDE 40 MG (LASIX) TAB PO SCH (16:06)
[2018-08-10] MEDS: SERTRALINE 50 MG (ZOLOFT) TABLET PO SCH (20:56)
[2018-08-10] MEDS: ASPIRIN E.C. 81 MG (ECOTRIN) TAB PO SCH (20:56)
[2018-08-10] MEDS: CLOPIDOGREL 75 MG (PLAVIX) TABLET PO SCH (20:56)
[2018-08-10] MEDS: ATORVASTATIN 80 MG (LIPITOR) TABLET PO SCH (20:56)
[2018-08-11] VITALS: BP 114/62
[2018-08-11] MEDS: HYDROcodone/APAP 5 MG/325 MG (LORTAB) TAB PO PRN ×2 (00:03→08:38)
[2018-08-11 04:32] LABS: BASOPHILS % (AUTO) 0 % (0-10); EOSINOPHILS # (AUTO) 0.1 10^3/uL (0.0-0.3); EOSINOPHILS % (AUTO) 2 % (0-10); HEMATOCRIT 27 % (35-52); HEMOGLOBIN 8.6 G/DL (11.5-16.0); LYMPHOCYTES % (AUTO) 22 % (12-44); MEAN CORPUSCULAR HEMOGLOBIN 25 PG (25-34); MEAN CORPUSCULAR HGB CONC 32 G/DL (32-36); MEAN CORPUSCULAR VOLUME 80 FL (80-99); MEAN PLATELET VOLUME 10.2 FL (7.4-10.4); MONOCYTES # (AUTO) 0.5 X 10^3 (0.0-1.0); MONOCYTES % (AUTO) 11 % (0-12); NEUTROPHILS # (AUTO) 3.1 X 10^3 (1.8-7.8); NEUTROPHILS % (AUTO) 66 % (42-75); PLATELET COUNT 231 10^3/uL (130-400); RED CELL DISTRIBUTION WIDTH 17.7 % (10.0-14.5); WHITE BLOOD COUNT 4.7 10^3/uL (4.3-11.0)
[2018-08-11 05:08] LABS: CALCIUM 8.5 MG/DL (8.5-10.1); CREATININE SERUM 2.66 MG/DL (0.60-1.30); POTASSIUM 3.4 MMOL/L (3.6-5.0)
[2018-08-11] MEDS: FUROSEMIDE 40 MG (LASIX) TAB PO SCH (06:28)
[2018-08-11] MEDS: CATHETER FLUSH 10 ML SYR IV SCH ×3 (06:28→20:09)
[2018-08-11] MEDS: inSUlin ASPART (NovoLOG) 1 UNIT/0.01 ML (CHARGE PER UNIT) SC SCH ×4 (06:28→20:02)
[2018-08-11] MEDS: KCL 10 MEQ TAB (MICRO K) PO SCH (06:28)
[2018-08-11] MEDS ORDERED: KCL 10 MEQ TAB (MICRO K) PO NR (07:54)
--- NOTE | 2018-08-11 08:03 | Progress Note (SOAP) ---
Subjective Time Seen by a Provider: 07:58 Subjective/Events-last exam Patient lost 22 pounds since admission. GFR 17. Patient doing better. To switch to oral diuretic. Put on Bumex as per conference with skimmer reverberatory. Objective Exam Vital Signs Date Time Temp Pulse Resp B/P (MAP) Pulse Ox O2 Delivery O2 Flow Rate FiO2 08/11/18 00:00 98.7 84 16 114/62 (79) 95 Room Air 08/10/18 20:00 Room Air 08/10/18 19:43 94 Room Air 08/10/18 16:00 98.0 88 18 128/68 (88) 95 Room Air 08/10/18 12:10 97.8 73 18 107/57 (74) 96 Room Air 08/10/18 09:56 72 95 08/10/18 09:56 95 Room Air 08/10/18 08:45 97.0 96 18 129/76 (93) 94 Room Air 08/10/18 08:00 96 Nasal Cannula I & O 08/11/18 07:00 Intake Total 640 ml Output Total 4000 ml Balance -3360 ml Capillary Refill : Less Than 3 Seconds General Appearance: No Apparent Distress, WD/WN HEENT: Normal ENT Inspection Respiratory: No Accessory Muscle Use, No Respiratory Distress, Decreased Breath Sounds Cardiovascular: Regular Rate, Rhythm, No Murmur Gastrointestinal: non tender, soft Extremity: Other (Swelling much less in legs, patient lost 22 pounds) Results Lab Laboratory Tests 08/11/18 04:05 Laboratory Tests 08/10/18 09:44: Glucometer 250H 08/10/18 14:44: Glucometer 310H 08/10/18 20:55: Glucometer 200H 08/11/18 04:05: White Blood Count 4.7, Red Blood Count 3.40L, Hemoglobin 8.6L, Hematocrit 27L, Mean Corpuscular Volume 80, Mean Corpuscular Hemoglobin 25, Mean Corpuscular Hemoglobin Concent 32, Red Cell Distribution Width 17.7H, Platelet Count 231, Mean Platelet Volume 10.2, Neutrophils (%) (Auto) 66, Lymphocytes (%) (Auto) 22 , Monocytes (%) (Auto) 11, Eosinophils (%) (Auto) 2, Basophils (%) (Auto) 0, Neutrophils # (Auto) 3.1, Lymphocytes # (Auto) 1.0, Monocytes # (Auto) 0.5, Eosinophils # (Auto) 0.1, Basophils # (Auto) 0.0, Sodium Level 134L, Potassium Level 3.4L, Chloride Level 95L, Carbon Dioxide Level 24, Anion Gap 15H, Blood Urea Nitrogen 56H, Creatinine 2.66H, Estimat Glomerular Filtration Rate 17, BUN/ Creatinine Ratio 21, Glucose Level 243H, Calcium Level 8.5 08/11/18 06:18: Glucometer 233H Microbiology 08/04/18 Urine Culture - Final, Complete NO GROWTH Assessment/Plan Assessment/Plan Assess & Plan/Chief Complaint Acute on chronic systolic/ diastolic congestive heart failure. Chronic renal insufficiency. Diabetes. Dementia. Coronary artery disease. History of CABG. History of tobaccoism. . 08/09/18. Acute and chronic systolic/diastolic congestive heart failure. Chronic renal insufficiency. Diabetes. Dementia. Coronary artery disease. History of tobaccoism. History of CABG. Pretibial edema. Pleural effusion. . 08/10/18 chronic renal insufficiency. Pretibial edema. Diabetes. Dementia. Coronary artery disease. History of tobaccoism. Pleural effusion. Patient not losing any weight and GFR coming down a little more. . 08/11/18. Chronic renal insufficiency. Pretibial edema resolving area Diabetes. Dementia. Coronary artery disease. History of tobaccoism. Pleural effusion improving. GFR 17. Patient put on oral diuretic Clinical Quality Measures Admission Status Admission Dx Fluid overload. Congestive heart failure. Bilateral pleural effusion. Coronary artery disease. COPD. UTI. Chronic renal failure. Weakness and fatigue. Short of breath. Diabetes. Tobaccoism DVT/VTE Risk/Contraindication: Risk Factor Score Per Nursin RFS Level Per Nursing on Admit: 4+=Very High Contraindications-[facility]: Other *list below* MERRICK SIEGEL DO Aug 11, 2018 08:03
[2018-08-11] MEDS: RT-ALBUTEROL SULF 2.5 MG/3 ML PRE-MIX VIAL INH SCH ×2 (08:21→19:17)
--- NOTE | 2018-08-11 08:25 | Cardiology Progress Note ---
Subjective Date Seen by Provider: Aug 11, 2018 Time Seen by Provider: 08:22 Subjective/Events-last exam patient is laying down in bed, complaining of generalized fatigue and loss of energy Review of Systems General: No Chills, No Night Sweats, No Fatigue, No Malaise, No Appetite, No Other HEENT: No Head Aches, No Visual Changes, No Eye Pain, No Ear Pain, No Dysphasia , No Sinus Congestion, No Post Nasal Drip, No Sore Throat, No Other Pulmonary: Dyspnea; No Cough, No Pleuritic Chest Pain, No Other Cardiovascular: No: Chest Pain, Palpitations, Orthopnea, Paroxysmal Noc. Dyspnea, Edema, Lt Headedness, Other Objective-Cardiology Exam Last Set of Vital Signs Vital Signs 08/07/18 08/09/18 08/11/18 08:09 10:12 00:00 Temp 98.7 Pulse 84 Resp 16 B/P (MAP) 114/62 (79) Pulse Ox 95 O2 Delivery Room Air O2 Flow Rate 2.00 FiO2 21 Capillary Refill : Less Than 3 Seconds I&O Intake and Output 08/11/18 00:00 Intake Total 540 ml Output Total 3800 ml Balance -3260 ml Intake Oral 540 ml Output Urine Total 3800 ml # Bowel Movements 4 General: Alert, Oriented X3, Cooperative HEENT: Atraumatic, PERRLA Neck: Supple, No JVD, No Thyromegaly Lungs: Clear to Auscultation, Normal Air Movement Heart: Regular Rate, Normal S1, Normal S2, No Murmurs Abdomen: Normal Bowel Sounds, Soft, No Tenderness, No Hepatosplenomegaly, No Masses Extremities: No Clubbing, No Cyanosis, No Edema, Normal Pulses, No Tenderness/ Swelling Skin: No Rashes, No Breakdown, No Significant Lesion Neuro: Normal Gait, Normal Speech, Strength at 5/5 X4 Ext, Normal Tone, Sensation Intact Psych/Mental Status: Mental Status NL, Mood NL Results Lab Laboratory Tests 08/11/18 04:05 A/P-Cardiology Admission Diagnosis Pneumonia Acute renal failure Coronary artery disease Hypertension Hyperlipidemia Assessment/Plan Pneumonia, managed by medical team, still having some dyspnea and fatigue 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 The procedure showed severe proximal LAD disease, proximal occlusion of the ramus intermedius and moderately to severe long stenosis in the proximal portion of the circumflex artery, patent stents in the proximal and distal right coronary artery that is known to have 3 stents Taxus, moderately to severe stenosis in a small caliber PDA from the RCA, occlusion of the vein graft to the right ramus intermedius underwent balloon angioplasty using 2.012 mm stent at the site of insertion of the graft to the ramus intermedius then Alpine 3 x 38 stent in the proximal and midportion of the graft, patent HUFF to LAD, ejection fraction 50 percent, had another angioplasty in October 2017 for occlusion of the vein graft to the ramus intermedius, was transferred in (most recent cardiac cath ) June 2018 to [place] after having myocardial infarction and reported that she had 2 stents placed while she was in the hospital - we have not been able to obtain this report despite multiple requests, has been followed by Dr. Zavala Ischemic cardiomyopathy. Most recent echocardiogram on 08/09/18: LVEF 35%, conc LVH, mild LA enlargement, mod MR, mod to severe TR, PASP 25 mmHg, L pleural eff Generalized weakness and fatigue. History of hyponatremia Diabetes mellitus, followed and managed by primary care physician Peripheral neuropathy, probably diabetic, no change from baseline Bilateral leg swelling with discomfort, and chronic leg weakness Tobaccoism Clinical Quality Measures DVT/VTE Risk/Contraindication: Risk Factor Score Per Nursin RFS Level Per Nursing on Admit: 4+=Very High Contraindications-Mechi: Other *list below* ODILIA AGUAYO MD Aug 11, 2018 08:25
[2018-08-11] MEDS: meTOprolol TARTRATE 25 MG (LOPRESSOR) TABLET PO SCH (08:37)
[2018-08-11] MEDS: GABAPENTIN 300 MG (NEURONTIN) CAP PO SCH ×2 (08:37→20:08)
[2018-08-11] MEDS: MENTHOL/ZINC OXIDE (CALMOSEPTINE) 113 GM TUBE TOP SCH ×2 (08:38→20:09)
--- NOTE | 2018-08-11 12:43 | NUR ---
DISCHARGE PLANNING: Spoke with Dr. Shultz this morning. He is planning to discharge the patient back to previous placement at [facility] tomorrow. This RN notified Evelyn at [facility] of planned discharge. Faxed clinical information and will send orders when available tomorrow.
[2018-08-11 15:53] VITALS: BP 131/63
[2018-08-11] MEDS: ENOXAPARIN 30 MG/0.3 ML (LOVENOX) SYR SC SCH (15:54)
[2018-08-11] MEDS: BUMETANIDE 1 MG (BUMEX) TAB PO SCH (16:54)
[2018-08-11] MEDS: ACETAMINOPHEN 500 MG TAB (TYLENOL) PO PRN (16:55)
[2018-08-11] MEDS: CLOPIDOGREL 75 MG (PLAVIX) TABLET PO SCH (20:08)
[2018-08-11] MEDS: SERTRALINE 50 MG (ZOLOFT) TABLET PO SCH (20:08)
[2018-08-11] MEDS: ATORVASTATIN 80 MG (LIPITOR) TABLET PO SCH (20:08)
[2018-08-11] MEDS: ASPIRIN E.C. 81 MG (ECOTRIN) TAB PO SCH (20:08)
[2018-08-12] VITALS: BP 125/61
[2018-08-12 04:36] LABS: HEMOGLOBIN 8.5 G/DL (11.5-16.0); MEAN PLATELET VOLUME 10.5 FL (7.4-10.4); RED CELL DISTRIBUTION WIDTH 17.2 % (10.0-14.5); WHITE BLOOD COUNT 4.7 10^3/uL (4.3-11.0)
[2018-08-12 05:03] LABS: CALCIUM 8.5 MG/DL (8.5-10.1); CREATININE SERUM 2.56 MG/DL (0.60-1.30); POTASSIUM 3.1 MMOL/L (3.6-5.0)
[2018-08-12] MEDS: CATHETER FLUSH 10 ML SYR IV SCH (05:16)
[2018-08-12] MEDS: inSUlin ASPART (NovoLOG) 1 UNIT/0.01 ML (CHARGE PER UNIT) SC SCH ×2 (05:16→10:44)
[2018-08-12] MEDS: KCL 10 MEQ TAB (MICRO K) PO SCH (05:54)
[2018-08-12] MEDS: RT-ALBUTEROL SULF 2.5 MG/3 ML PRE-MIX VIAL INH SCH (07:25)
[2018-08-12] MEDS: HYDROcodone/APAP 5 MG/325 MG (LORTAB) TAB PO PRN (07:43)
[2018-08-12] MEDS: GABAPENTIN 300 MG (NEURONTIN) CAP PO SCH (07:43)
[2018-08-12 08:00] VITALS: BP 114/56
[2018-08-12] MEDS: BUMETANIDE 1 MG (BUMEX) TAB PO SCH (08:41)
[2018-08-12] MEDS: meTOprolol TARTRATE 25 MG (LOPRESSOR) TABLET PO SCH (08:41)
[2018-08-12] MEDS: MENTHOL/ZINC OXIDE (CALMOSEPTINE) 113 GM TUBE TOP SCH (08:42)
--- NOTE | 2018-08-12 09:02 | Progress Note-Cardiology ---
Cardiology SOAP Progress Note Subjective: Lying in bed. States she is going home today. Feels legs are better. No c/o CP, palpitations, or dyspnea. Objective: I&O/Vital Signs 08/12/18 08/12/18 08/12/18 00:00 07:25 08:00 Temp 97.8 98.7 Pulse 77 64 Resp 18 18 B/P (MAP) 125/61 (82) 114/56 (75) Pulse Ox 94 90 93 O2 Delivery Room Air Room Air Room Air 08/11/18 23:59 Intake Total 1040 ml Output Total 2120 ml Balance -1080 ml Weight (Pounds): 172 Weight (Ounces): 0.0 Weight (Calculated Kilograms): 78.719012 Constitutional: AAO x 3; No apparent distress; well-developed, well-nourished Respiratory: No accessory muscle use, No respiratory distress; chest expansion is symmetric, chest is bilaterally symmetric, rhonchi (scattered), other ( prolonged exp phase) Cardiovascular: regular rate-rhythm; No JVD; S1 and S2, systolic murmur Gastrointestional: soft, round, audible bowel sounds Extremities: other (bilat LE extremity edema (2+); bilat LE ruddish from the knees to the ankles) Neurologic/Psychiatric: oriented x 3, grossly intact Skin: other Results/Procedures: Labs Laboratory Tests 08/11/18 15:36: Glucometer 237H 08/11/18 15:56: Glucometer 227H 08/11/18 19:57: Glucometer 201H 08/12/18 04:00: White Blood Count 4.7, Red Blood Count 3.38L, Hemoglobin 8.5L, Hematocrit 27L, Mean Corpuscular Volume 80, Mean Corpuscular Hemoglobin 25, Mean Corpuscular Hemoglobin Concent 32, Red Cell Distribution Width 17.2H, Platelet Count 226, Mean Platelet Volume 10.5H, Sodium Level 137, Potassium Level 3.1L, Chloride Level 95L, Carbon Dioxide Level 26, Anion Gap 16H, Blood Urea Nitrogen 61H, Creatinine 2.56H, Estimat Glomerular Filtration Rate 18, BUN/Creatinine Ratio 24 , Glucose Level 73, Calcium Level 8.5 08/12/18 05:09: Glucometer 87 08/12/18 10:10: Glucometer 212H Microbiology 08/04/18 Urine Culture - Final, Complete NO GROWTH Laboratory Tests 08/11/18 04:05 08/12/18 04:00 A/P: Assessment: Pneumonia - management per Med Svce Acute on chronic systolic/diastolic congestive heart failure - clinically improved Acute on chronic renal failure (CKD 4) Coronary artery disease, history of CABG, had previous DC in September 2017 underwent angioplasty to the vein graft to the ramus intermedius. The procedure showed severe proximal LAD disease, proximal occlusion of the ramus intermedius and moderately to severe long stenosis in the proximal portion of the circumflex artery, patent stents in the proximal and distal right coronary artery that is known to have 3 stents Taxus, moderately to severe stenosis in a small caliber PDA from the RCA, occlusion of the vein graft to the right ramus intermedius underwent balloon angioplasty using 2.012 mm stent at the site of insertion of the graft to the ramus intermedius then Alpine 3 x 38 stent in the proximal and midportion of the graft, patent HUFF to LAD, ejection fraction 50 percent, had another angioplasty in October 2017 for occlusion of the vein graft to the ramus intermedius, was transferred in (most recent cardiac cath ) June 2018 to [place] after having myocardial infarction and reported that she had 2 stents placed while she was in the hospital - we have not been able to obtain this report despite multiple requests Ischemic cardiomyopathy. Most recent echocardiogram on 08/09/18: LVEF 35%, conc LVH, mild LA enlargement, mod MR, mod to severe TR, PASP 25 mmHg, L pleural eff Generalized weakness and fatigue. History of hyponatremia Diabetes mellitus, followed and managed by primary care physician Peripheral neuropathy, probably diabetic, no change from baseline Bilateral leg swelling with discomfort, and chronic leg weakness Tobaccoism Plan: * Complex management * LE swelling has improved * Continue current medication regimen * Not a suitable candidate for TAM or ARB d/t worsening renal function * Replace potassium * Outpt f/u advised post discharge Physician Assessment Physician Assessment Shortness of breath is improved. Leg swelling modestly improved. No cp or palp or syncope. Persistent gen malaise and weakness Lungs: fair air entry, prolonged exp Cor: irreg, mechanical S2 Ext: no c/c; 2+ pitting edema A&R * As documented in our note above that I updated (italics) and as noted below * Replenish K * Monitor labs as outpatient. Dr Shultz managing * We recommend outpatient cardiac f/u, as well JERARDO SCHWARTZ Aug 12, 2018 09:02 DORA HASSAN MD FACP FAC CCDS Aug 12, 2018 11:05
[2018-08-12] MEDS ORDERED: KCL 20 MEQ TAB (K-DUR) PO NR (09:15)
[2018-08-12] MEDS ORDERED: KCL 20 MEQ TAB (K-DUR) PO ONE (11:15)
[2018-08-12] MEDS ORDERED: KCL 10 MEQ TAB (MICRO K) PO NR (11:30)
--- NOTE | 2018-08-12 12:53 | Progress Note (SOAP) ---
Subjective Time Seen by a Provider: 12:50 Subjective/Events-last exam Patient the same. Patient to be transferred today to the shelter in [facility]. Patient stable Objective Exam Vital Signs Date Time Temp Pulse Resp B/P (MAP) Pulse Ox O2 Delivery O2 Flow Rate FiO2 08/12/18 08:00 98.7 64 18 114/56 (75) 93 Room Air 08/12/18 07:50 Room Air 08/12/18 07:25 90 Room Air 08/12/18 00:00 97.8 77 18 125/61 (82) 94 Room Air 08/11/18 20:00 Room Air 08/11/18 19:17 92 Room Air 08/11/18 15:53 97.4 72 20 131/63 (85) 95 Room Air I & O 08/12/18 07:00 Intake Total 1040 ml Output Total 2920 ml Balance -1880 ml Capillary Refill : Less Than 3 Seconds General Appearance: No Apparent Distress, WD/WN HEENT: Normal ENT Inspection Neck: Full Range of Motion, Normal Inspection, Non Tender Respiratory: No Accessory Muscle Use, No Respiratory Distress Cardiovascular: Regular Rate, Rhythm, No Murmur Gastrointestinal: non tender, soft Results Lab Laboratory Tests 08/12/18 04:00 Laboratory Tests 08/11/18 15:36: Glucometer 237H 08/11/18 15:56: Glucometer 227H 08/11/18 19:57: Glucometer 201H 08/12/18 04:00: White Blood Count 4.7, Red Blood Count 3.38L, Hemoglobin 8.5L, Hematocrit 27L, Mean Corpuscular Volume 80, Mean Corpuscular Hemoglobin 25, Mean Corpuscular Hemoglobin Concent 32, Red Cell Distribution Width 17.2H, Platelet Count 226, Mean Platelet Volume 10.5H, Sodium Level 137, Potassium Level 3.1L, Chloride Level 95L, Carbon Dioxide Level 26, Anion Gap 16H, Blood Urea Nitrogen 61H, Creatinine 2.56H, Estimat Glomerular Filtration Rate 18, BUN/Creatinine Ratio 24 , Glucose Level 73, Calcium Level 8.5 08/12/18 05:09: Glucometer 87 08/12/18 10:10: Glucometer 212H Microbiology 08/04/18 Urine Culture - Final, Complete NO GROWTH Assessment/Plan Assessment/Plan Assess & Plan/Chief Complaint Acute on chronic systolic/ diastolic congestive heart failure. Chronic renal insufficiency. Diabetes. Dementia. Coronary artery disease. History of CABG. History of tobaccoism. . 08/09/18. Acute and chronic systolic/diastolic congestive heart failure. Chronic renal insufficiency. Diabetes. Dementia. Coronary artery disease. History of tobaccoism. History of CABG. Pretibial edema. Pleural effusion. . 08/10/18 chronic renal insufficiency. Pretibial edema. Diabetes. Dementia. Coronary artery disease. History of tobaccoism. Pleural effusion. Patient not losing any weight and GFR coming down a little more. . 08/11/18. Chronic renal insufficiency. Pretibial edema resolving area Diabetes. Dementia. Coronary artery disease. History of tobaccoism. Pleural effusion improving. GFR 17. Patient put on oral diuretic. . 08/12/18. Chronic renal insufficiency. Peripheral edema better. Diabetes. Dementia. Pleural effusion improving. Patient to be discharged today to shelter Clinical Quality Measures Admission Status Admission Dx Fluid overload. Congestive heart failure. Bilateral pleural effusion. Coronary artery disease. COPD. UTI. Chronic renal failure. Weakness and fatigue. Short of breath. Diabetes. Tobaccoism DVT/VTE Risk/Contraindication: Risk Factor Score Per Nursin RFS Level Per Nursing on Admit: 4+=Very High [facility] Other *list below* MERRICK SIEGEL DO Aug 12, 2018 12:53
[2018-08-12] MEDS ORDERED: BUME1TAB4 PO (12:59)
--- NOTE | 2018-08-12 13:02 | Discharge Inst-Skilled Nursing ---
Discharge Inst-Skilled NF Patient Instructions Patient Problems: Renal insufficiency. Diabetes. Coronary artery disease Consult/Follow Up/Orders Follow Up Appt.: 2 office next Wednesday at 10 a.m. Skilled NF Admit to: [facility] Certification ([facility]) I certify that SNF services are required to be given on an inpatient basis because of the above named patient's need for [facility] care on a continuing basis for the conditions(s) for which he/she was receiving inpatient hospital services prior to his/her transfer to the SNF. Group Home Facility Order: [facility]-Evaluate & Treat, Physical Therapy-Evaluate & Treat Oxygen Delivery Method: Room Air Discharge Diet: ADA Diet New & Resume Previous Orders Ismael Siegel Aug 12, 2018 13:01 ISMAEL SIEGEL DO Aug 12, 2018 13:02
[2018-08-12] MEDS ORDERED: METO2.5T PO (14:07)
--- NOTE | 2018-08-12 14:19 | Diagnostic Imaging Report ---
INDICATION: Pleural effusion and COPD. TIME OF EXAM: 1:44 PM COMPARISON is made with prior study from 08/10/2018. FINDINGS: Changes of median sternotomy and CABG are noted. Bibasilar infiltrates and pleural effusions appear similar to examination of 2 days earlier. Mid and upper lung bonilla are clear. No pneumothorax is seen. IMPRESSION: Stable bibasilar infiltrates and pleural effusions when compared with exam 2 days earlier. Dictated by: Dictated on workstation # [id number]
--- NOTE | 2018-08-12 14:27 | NUR ---
CM/SS faxed discharge information and medications list to [facility].
--- NOTE | 2018-08-15 07:29 | Discharge Summary ---
Diagnosis/Chief Complaint Date of Admission Aug 04, 2018 at 13:08 Date of Discharge Aug 12, 2018 at 14:22 Discharge Date: Aug 12, 2018 Discharge Time: 07:26 Discharge Diagnosis Fluid overload. Bilateral pleural effusion. Acute on chronic systolic/diastolic congestive heart failure. COPD exacerbation. UTI. Coronary artery disease. Hypertension. Hyperlipidemia. Weakness. Diabetes. Tobaccoism Reason Hospital Visit [facility]. Patient within the last month gained over 23 pounds. Ration has history of renal insufficiency chronic Patient has history of coronary artery disease. Patient and known diabetic. Patient has COPD. Patient has history of tobaccoism. According to the nurse at the [facility] patient sitting up to sleep now. Patient's GFR is 19 this morning. Patient sent out to the emergency room. Spoke to health aide. Patient admitted. Patient has 4+ pedal edema with swelling on the way up to the hips. Patient has pain all over the body especially in the lower back. Patient short of breath with exertion Discharge Summary Consultations Cardiology Discharge Physical Examination Allergies: Coded Allergies: NKANo Known Allergies (Verified Allergy, Unknown, 07/15/18) Vitals & I&Os Vital Signs Date Time Temp Pulse Resp B/P (MAP) Pulse Ox O2 Delivery O2 Flow Rate FiO2 08/12/18 14:22 08/12/18 08:00 98.7 64 18 93 Room Air 08/09/18 10:12 2.00 Hospital Course Labs (last 24 hrs) Laboratory Tests 08/04/18 10:00: White Blood Count 6.5, Red Blood Count 3.82L, Hemoglobin 9.7L, Hematocrit 31L, Mean Corpuscular Volume 81, Mean Corpuscular Hemoglobin 25, Mean Corpuscular Hemoglobin Concent 31L, Red Cell Distribution Width 17.7H, Platelet Count 260, Mean Platelet Volume 10.5H, Neutrophils (%) (Auto) 76H, Lymphocytes (%) (Auto) 13, Monocytes (%) (Auto) 9, Eosinophils (%) (Auto) 1, Basophils (%) (Auto) 1, Neutrophils # (Auto) 5.0, Lymphocytes # (Auto) 0.8L, Monocytes # (Auto) 0.6, Eosinophils # (Auto) 0.1, Basophils # (Auto) 0.0, Sodium Level 134L, Potassium Level 4.6, Chloride Level 99, Carbon Dioxide Level 20L, Anion Gap 15H, Blood Urea Nitrogen 49H, Creatinine 2.44H, Estimat Glomerular Filtration Rate 19, BUN/ Creatinine Ratio 20, Glucose Level 206H, Calcium Level 8.9, Corrected Calcium 9.4, Magnesium Level 2.1, Total Bilirubin 0.4, Aspartate Amino Transf (AST/SGOT ) 24, Alanine Aminotransferase (ALT/SGPT) 17, Alkaline Phosphatase 115, C- Reactive Protein High Sensitivity 1.29H, B-Type Natriuretic Peptide 2163.4H, Total Protein 7.5, Albumin 3.4 08/04/18 10:15: Erythrocyte Sedimentation Rate 36H 08/04/18 10:30: Urine Color YELLOW, Urine Clarity CLEAR, Urine pH 6, Urine Specific [place] 1.015L, Urine Protein 2+H, Urine Glucose (UA) NEGATIVE, Urine Ketones NEGATIVE, Urine Nitrite NEGATIVE, Urine Bilirubin NEGATIVE, Urine Urobilinogen NORMAL, Urine Leukocyte Esterase 2+H, Urine RBC (Auto) 1+H, Urine RBC 2-5H, Urine WBC 10 -25H, Urine Squamous Epithelial Cells RARE, Urine Renal Epithelial Cells NONE, Urine Crystals NONE, Urine Bacteria TRACE, Urine Casts PRESENT, Urine Hyaline Casts 0-2H, Urine Mucus NEGATIVE, Urine Culture Indicated YES 08/04/18 13:08: Lab Scanned Report Referred Lab Report 08/04/18 17:22: Glucometer 306H 08/04/18 20:12: Glucometer 337H 08/05/18 05:30: White Blood Count 4.9, Red Blood Count 3.42L, Hemoglobin 8.5L, Hematocrit 28L, Mean Corpuscular Volume 82, Mean Corpuscular Hemoglobin 25, Mean Corpuscular Hemoglobin Concent 31L, Red Cell Distribution Width 18.1H, Platelet Count 263, Mean Platelet Volume 10.0, Neutrophils (%) (Auto) 65, Lymphocytes (%) (Auto) 21 , Monocytes (%) (Auto) 13H, Eosinophils (%) (Auto) 1, Basophils (%) (Auto) 0, Neutrophils # (Auto) 3.2, Lymphocytes # (Auto) 1.0, Monocytes # (Auto) 0.6, Eosinophils # (Auto) 0.1, Basophils # (Auto) 0.0, Sodium Level 135, Potassium Level 4.0, Chloride Level 100, Carbon Dioxide Level 21, Anion Gap 14, Blood Urea Nitrogen 53H, Creatinine 2.42H, Estimat Glomerular Filtration Rate 19, BUN/ Creatinine Ratio 22, Glucose Level 198H, Calcium Level 8.5, Magnesium Level 2.0 08/05/18 09:57: Glucometer 342H 08/05/18 14:44: Glucometer 159H 08/05/18 18:13: Glucometer 356H 08/06/18 04:20: White Blood Count 4.7, Red Blood Count 3.48L, Hemoglobin 8.7L, Hematocrit 28L, Mean Corpuscular Volume 81, Mean Corpuscular Hemoglobin 25, Mean Corpuscular Hemoglobin Concent 31L, Red Cell Distribution Width 17.7H, Platelet Count 255, Mean Platelet Volume 9.8, Neutrophils (%) (Auto) 66, Lymphocytes (%) (Auto) 20, Monocytes (%) (Auto) 12, Eosinophils (%) (Auto) 2, Basophils (%) (Auto) 0, Neutrophils # (Auto) 3.1, Lymphocytes # (Auto) 0.9L, Monocytes # (Auto) 0.6, Eosinophils # (Auto) 0.1, Basophils # (Auto) 0.0, Sodium Level 137, Potassium Level 3.6, Chloride Level 101, Carbon Dioxide Level 22, Anion Gap 14, Blood Urea Nitrogen 51H, Creatinine 2.38H, Estimat Glomerular Filtration Rate 20, BUN/ Creatinine Ratio 21, Glucose Level 183H, Calcium Level 8.5, B-Type Natriuretic Peptide 2458.9H 08/06/18 05:42: Glucometer 206H 08/06/18 10:36: Glucometer 302H 08/06/18 14:43: Glucometer 362H 08/06/18 19:23: Glucometer 388H 08/07/18 04:20: White Blood Count 5.0, Red Blood Count 3.56L, Hemoglobin 9.0L, Hematocrit 29L, Mean Corpuscular Volume 82, Mean Corpuscular Hemoglobin 25, Mean Corpuscular Hemoglobin Concent 31L, Red Cell Distribution Width 18.0H, Platelet Count 252, Mean Platelet Volume 9.9, Neutrophils (%) (Auto) 64, Lymphocytes (%) (Auto) 18, Monocytes (%) (Auto) 15H, Eosinophils (%) (Auto) 3, Basophils (%) (Auto) 1, Neutrophils # (Auto) 3.2, Lymphocytes # (Auto) 0.9L, Monocytes # (Auto) 0.7, Eosinophils # (Auto) 0.1, Basophils # (Auto) 0.0, Sodium Level 137, Potassium Level 3.8, Chloride Level 100, Carbon Dioxide Level 22, Anion Gap 15H, Blood Urea Nitrogen 48H, Creatinine 2.38H, Estimat Glomerular Filtration Rate 20, BUN/ Creatinine Ratio 20, Glucose Level 110H, Calcium Level 8.5 08/07/18 09:46: Glucometer 248H 08/07/18 14:27: Glucometer 256H 08/07/18 19:54: Glucometer 202H 08/08/18 05:47: Glucometer 173H 08/08/18 05:48: White Blood Count 4.9, Red Blood Count 3.48L, Hemoglobin 8.8L, Hematocrit 28L, Mean Corpuscular Volume 82, Mean Corpuscular Hemoglobin 25, Mean Corpuscular Hemoglobin Concent 31L, Red Cell Distribution Width 17.7H, Platelet Count 236, Mean Platelet Volume 10.1, Neutrophils (%) (Auto) 66, Lymphocytes (%) (Auto) 18 , Monocytes (%) (Auto) 13H, Eosinophils (%) (Auto) 3, Basophils (%) (Auto) 1, Neutrophils # (Auto) 3.2, Lymphocytes # (Auto) 0.9L, Monocytes # (Auto) 0.7, Eosinophils # (Auto) 0.1, Basophils # (Auto) 0.0, Sodium Level 135, Potassium Level 3.7, Chloride Level 99, Carbon Dioxide Level 20L, Anion Gap 16H, Blood Urea Nitrogen 49H, Creatinine 2.47H, Estimat Glomerular Filtration Rate 19, BUN/ Creatinine Ratio 20, Glucose Level 150H, Calcium Level 8.5 08/08/18 10:31: Glucometer 320H 08/08/18 13:28: Glucometer 235H 08/08/18 15:31: Glucometer 238H 08/08/18 21:35: Glucometer 253H 08/09/18 06:00: Glucometer 128H 08/09/18 06:20: White Blood Count 4.8, Red Blood Count 3.38L, Hemoglobin 8.5L, Hematocrit 28L, Mean Corpuscular Volume 82, Mean Corpuscular Hemoglobin 25, Mean Corpuscular Hemoglobin Concent 31L, Red Cell Distribution Width 17.7H, Platelet Count 225, Mean Platelet Volume 10.0, Neutrophils (%) (Auto) 54, Lymphocytes (%) (Auto) 24 , Monocytes (%) (Auto) 19H, Eosinophils (%) (Auto) 3, Basophils (%) (Auto) 1, Neutrophils # (Auto) 2.6, Lymphocytes # (Auto) 1.1, Monocytes # (Auto) 0.9, Eosinophils # (Auto) 0.2, Basophils # (Auto) 0.0, Sodium Level 135, Potassium Level 3.9, Chloride Level 98, Carbon Dioxide Level 22, Anion Gap 15H, Blood Urea Nitrogen 51H, Creatinine 2.60H, Estimat Glomerular Filtration Rate 18, BUN/ Creatinine Ratio 20, Glucose Level 116H, Calcium Level 8.5 08/09/18 12:39: Glucometer 259H 08/09/18 15:52: Glucometer 316H 08/09/18 21:01: Glucometer 324H 08/10/18 05:10: White Blood Count 5.0, Red Blood Count 3.30L, Hemoglobin 8.2L, Hematocrit 27L, Mean Corpuscular Volume 81, Mean Corpuscular Hemoglobin 25, Mean Corpuscular Hemoglobin Concent 31L, Red Cell Distribution Width 17.5H, Platelet Count 246, Mean Platelet Volume 10.3, Neutrophils (%) (Auto) 61, Lymphocytes (%) (Auto) 20 , Monocytes (%) (Auto) 17H, Eosinophils (%) (Auto) 2, Basophils (%) (Auto) 0, Neutrophils # (Auto) 3.1, Lymphocytes # (Auto) 1.0, Monocytes # (Auto) 0.8, Eosinophils # (Auto) 0.1, Basophils # (Auto) 0.0, Sodium Level 136, Potassium Level 3.4L, Chloride Level 96L, Carbon Dioxide Level 26, Anion Gap 14, Blood Urea Nitrogen 59H, Creatinine 2.91H, Estimat Glomerular Filtration Rate 16, BUN/ Creatinine Ratio 20, Glucose Level 137H, Calcium Level 8.7, Corrected Calcium 9.3, Total Bilirubin 0.4, Aspartate Amino Transf (AST/SGOT) 25, Alanine Aminotransferase (ALT/SGPT) 13, Alkaline Phosphatase 104, Total Protein 6.8, Albumin 3.2 08/10/18 05:42: Glucometer 151H 08/10/18 09:44: Glucometer 250H 08/10/18 14:44: Glucometer 310H 08/10/18 20:55: Glucometer 200H 08/11/18 04:05: White Blood Count 4.7, Red Blood Count 3.40L, Hemoglobin 8.6L, Hematocrit 27L, Mean Corpuscular Volume 80, Mean Corpuscular Hemoglobin 25, Mean Corpuscular Hemoglobin Concent 32, Red Cell Distribution Width 17.7H, Platelet Count 231, Mean Platelet Volume 10.2, Neutrophils (%) (Auto) 66, Lymphocytes (%) (Auto) 22 , Monocytes (%) (Auto) 11, Eosinophils (%) (Auto) 2, Basophils (%) (Auto) 0, Neutrophils # (Auto) 3.1, Lymphocytes # (Auto) 1.0, Monocytes # (Auto) 0.5, Eosinophils # (Auto) 0.1, Basophils # (Auto) 0.0, Sodium Level 134L, Potassium Level 3.4L, Chloride Level 95L, Carbon Dioxide Level 24, Anion Gap 15H, Blood Urea Nitrogen 56H, Creatinine 2.66H, Estimat Glomerular Filtration Rate 17, BUN/ Creatinine Ratio 21, Glucose Level 243H, Calcium Level 8.5 08/11/18 06:18: Glucometer 233H 08/11/18 09:33: Glucometer 290H 08/11/18 15:36: Glucometer 237H 08/11/18 15:56: Glucometer 227H 08/11/18 19:57: Glucometer 201H 08/12/18 04:00: White Blood Count 4.7, Red Blood Count 3.38L, Hemoglobin 8.5L, Hematocrit 27L, Mean Corpuscular Volume 80, Mean Corpuscular Hemoglobin 25, Mean Corpuscular Hemoglobin Concent 32, Red Cell Distribution Width 17.2H, Platelet Count 226, Mean Platelet Volume 10.5H, Sodium Level 137, Potassium Level 3.1L, Chloride Level 95L, Carbon Dioxide Level 26, Anion Gap 16H, Blood Urea Nitrogen 61H, Creatinine 2.56H, Estimat Glomerular Filtration Rate 18, BUN/Creatinine Ratio 24 , Glucose Level 73, Calcium Level 8.5 08/12/18 05:09: Glucometer 87 08/12/18 10:10: Glucometer 212H Microbiology 08/04/18 Urine Culture - Final, Complete NO GROWTH Laboratory Tests 08/04/18 10:00 08/05/18 05:30 08/06/18 04:20 08/07/18 04:20 08/08/18 05:48 08/09/18 06:20 08/10/18 05:10 08/11/18 04:05 08/12/18 04:00 Pending Labs Microbiology Date/Time Source Procedure Growth Status 08/04/18 10:30 Urine Frausto Cath Urine Culture - Final NO GROWTH Complete Laboratory Tests 08/04/18 10:00: White Blood Count 6.5, Red Blood Count 3.82, Hemoglobin 9.7, Hematocrit 31, Mean Corpuscular Volume 81, Mean Corpuscular Hemoglobin 25, Mean Corpuscular Hemoglobin Concent 31, Red Cell Distribution Width 17.7, Platelet Count 260, Mean Platelet Volume 10.5, Neutrophils (%) (Auto) 76, Lymphocytes (%) (Auto) 13 , Monocytes (%) (Auto) 9, Eosinophils (%) (Auto) 1, Basophils (%) (Auto) 1, Neutrophils # (Auto) 5.0, Lymphocytes # (Auto) 0.8, Monocytes # (Auto) 0.6, Eosinophils # (Auto) 0.1, Basophils # (Auto) 0.0, Sodium Level 134, Potassium Level 4.6, Chloride Level 99, Carbon Dioxide Level 20, Anion Gap 15, Blood Urea Nitrogen 49, Creatinine 2.44, Estimat Glomerular Filtration Rate 19, BUN/ Creatinine Ratio 20, Glucose Level 206, Calcium Level 8.9, Corrected Calcium 9.4 , Magnesium Level 2.1, Total Bilirubin 0.4, Aspartate Amino Transf (AST/SGOT) 24 , Alanine Aminotransferase (ALT/SGPT) 17, Alkaline Phosphatase 115, C-Reactive Protein High Sensitivity 1.29, B-Type Natriuretic Peptide 2163.4, Total Protein 7.5, Albumin 3.4 08/04/18 10:15: Erythrocyte Sedimentation Rate 36 08/04/18 10:30: Urine Color YELLOW, Urine Clarity CLEAR, Urine pH 6, Urine Specific [place] 1.015, Urine Protein 2+, Urine Glucose (UA) NEGATIVE, Urine Ketones NEGATIVE, Urine Nitrite NEGATIVE, Urine Bilirubin NEGATIVE, Urine Urobilinogen NORMAL, Urine Leukocyte Esterase 2+, Urine RBC (Auto) 1+, Urine RBC 2-5, Urine WBC 10-25 , Urine Squamous Epithelial Cells RARE, Urine Renal Epithelial Cells NONE, Urine Crystals NONE, Urine Bacteria TRACE, Urine Casts PRESENT, Urine Hyaline Casts 0-2, Urine Mucus NEGATIVE, Urine Culture Indicated YES 08/04/18 13:08: Lab Scanned Report Referred Lab Report 08/04/18 17:22: Glucometer 306 08/04/18 20:12: Glucometer 337 08/05/18 05:30: White Blood Count 4.9, Red Blood Count 3.42, Hemoglobin 8.5, Hematocrit 28, Mean Corpuscular Volume 82, Mean Corpuscular Hemoglobin 25, Mean Corpuscular Hemoglobin Concent 31, Red Cell Distribution Width 18.1, Platelet Count 263, Mean Platelet Volume 10.0, Neutrophils (%) (Auto) 65, Lymphocytes (%) (Auto) 21 , Monocytes (%) (Auto) 13, Eosinophils (%) (Auto) 1, Basophils (%) (Auto) 0, Neutrophils # (Auto) 3.2, Lymphocytes # (Auto) 1.0, Monocytes # (Auto) 0.6, Eosinophils # (Auto) 0.1, Basophils # (Auto) 0.0, Sodium Level 135, Potassium Level 4.0, Chloride Level 100, Carbon Dioxide Level 21, Anion Gap 14, Blood Urea Nitrogen 53, Creatinine 2.42, Estimat Glomerular Filtration Rate 19, BUN/ Creatinine Ratio 22, Glucose Level 198, Calcium Level 8.5, Magnesium Level 2.0 08/05/18 09:57: Glucometer 342 08/05/18 14:44: Glucometer 159 08/05/18 18:13: Glucometer 356 08/06/18 04:20: White Blood Count 4.7, Red Blood Count 3.48, Hemoglobin 8.7, Hematocrit 28, Mean Corpuscular Volume 81, Mean Corpuscular Hemoglobin 25, Mean Corpuscular Hemoglobin Concent 31, Red Cell Distribution Width 17.7, Platelet Count 255, Mean Platelet Volume 9.8, Neutrophils (%) (Auto) 66, Lymphocytes (%) (Auto) 20, Monocytes (%) (Auto) 12, Eosinophils (%) (Auto) 2, Basophils (%) (Auto) 0, Neutrophils # (Auto) 3.1, Lymphocytes # (Auto) 0.9, Monocytes # (Auto) 0.6, Eosinophils # (Auto) 0.1, Basophils # (Auto) 0.0, Sodium Level 137, Potassium Level 3.6, Chloride Level 101, Carbon Dioxide Level 22, Anion Gap 14, Blood Urea Nitrogen 51, Creatinine 2.38, Estimat Glomerular Filtration Rate 20, BUN/ Creatinine Ratio 21, Glucose Level 183, Calcium Level 8.5, B-Type Natriuretic Peptide 2458.9 08/06/18 05:42: Glucometer 206 08/06/18 10:36: Glucometer 302 08/06/18 14:43: Glucometer 362 08/06/18 19:23: Glucometer 388 08/07/18 04:20: White Blood Count 5.0, Red Blood Count 3.56, Hemoglobin 9.0, Hematocrit 29, Mean Corpuscular Volume 82, Mean Corpuscular Hemoglobin 25, Mean Corpuscular Hemoglobin Concent 31, Red Cell Distribution Width 18.0, Platelet Count 252, Mean Platelet Volume 9.9, Neutrophils (%) (Auto) 64, Lymphocytes (%) (Auto) 18, Monocytes (%) (Auto) 15, Eosinophils (%) (Auto) 3, Basophils (%) (Auto) 1, Neutrophils # (Auto) 3.2, Lymphocytes # (Auto) 0.9, Monocytes # (Auto) 0.7, Eosinophils # (Auto) 0.1, Basophils # (Auto) 0.0, Sodium Level 137, Potassium Level 3.8, Chloride Level 100, Carbon Dioxide Level 22, Anion Gap 15, Blood Urea Nitrogen 48, Creatinine 2.38, Estimat Glomerular Filtration Rate 20, BUN/ Creatinine Ratio 20, Glucose Level 110, Calcium Level 8.5 08/07/18 09:46: Glucometer 248 08/07/18 14:27: Glucometer 256 08/07/18 19:54: Glucometer 202 08/08/18 05:47: Glucometer 173 08/08/18 05:48: White Blood Count 4.9, Red Blood Count 3.48, Hemoglobin 8.8, Hematocrit 28, Mean Corpuscular Volume 82, Mean Corpuscular Hemoglobin 25, Mean Corpuscular Hemoglobin Concent 31, Red Cell Distribution Width 17.7, Platelet Count 236, Mean Platelet Volume 10.1, Neutrophils (%) (Auto) 66, Lymphocytes (%) (Auto) 18 , Monocytes (%) (Auto) 13, Eosinophils (%) (Auto) 3, Basophils (%) (Auto) 1, Neutrophils # (Auto) 3.2, Lymphocytes # (Auto) 0.9, Monocytes # (Auto) 0.7, Eosinophils # (Auto) 0.1, Basophils # (Auto) 0.0, Sodium Level 135, Potassium Level 3.7, Chloride Level 99, Carbon Dioxide Level 20, Anion Gap 16, Blood Urea Nitrogen 49, Creatinine 2.47, Estimat Glomerular Filtration Rate 19, BUN/ Creatinine Ratio 20, Glucose Level 150, Calcium Level 8.5 08/08/18 10:31: Glucometer 320 08/08/18 13:28: Glucometer 235 08/08/18 15:31: Glucometer 238 08/08/18 21:35: Glucometer 253 08/09/18 06:00: Glucometer 128 08/09/18 06:20: White Blood Count 4.8, Red Blood Count 3.38, Hemoglobin 8.5, Hematocrit 28, Mean Corpuscular Volume 82, Mean Corpuscular Hemoglobin 25, Mean Corpuscular Hemoglobin Concent 31, Red Cell Distribution Width 17.7, Platelet Count 225, Mean Platelet Volume 10.0, Neutrophils (%) (Auto) 54, Lymphocytes (%) (Auto) 24 , Monocytes (%) (Auto) 19, Eosinophils (%) (Auto) 3, Basophils (%) (Auto) 1, Neutrophils # (Auto) 2.6, Lymphocytes # (Auto) 1.1, Monocytes # (Auto) 0.9, Eosinophils # (Auto) 0.2, Basophils # (Auto) 0.0, Sodium Level 135, Potassium Level 3.9, Chloride Level 98, Carbon Dioxide Level 22, Anion Gap 15, Blood Urea Nitrogen 51, Creatinine 2.60, Estimat Glomerular Filtration Rate 18, BUN/ Creatinine Ratio 20, Glucose Level 116, Calcium Level 8.5 08/09/18 12:39: Glucometer 259 08/09/18 15:52: Glucometer 316 08/09/18 21:01: Glucometer 324 08/10/18 05:10: White Blood Count 5.0, Red Blood Count 3.30, Hemoglobin 8.2, Hematocrit 27, Mean Corpuscular Volume 81, Mean Corpuscular Hemoglobin 25, Mean Corpuscular Hemoglobin Concent 31, Red Cell Distribution Width 17.5, Platelet Count 246, Mean Platelet Volume 10.3, Neutrophils (%) (Auto) 61, Lymphocytes (%) (Auto) 20 , Monocytes (%) (Auto) 17, Eosinophils (%) (Auto) 2, Basophils (%) (Auto) 0, Neutrophils # (Auto) 3.1, Lymphocytes # (Auto) 1.0, Monocytes # (Auto) 0.8, Eosinophils # (Auto) 0.1, Basophils # (Auto) 0.0, Sodium Level 136, Potassium Level 3.4, Chloride Level 96, Carbon Dioxide Level 26, Anion Gap 14, Blood Urea Nitrogen 59, Creatinine 2.91, Estimat Glomerular Filtration Rate 16, BUN/ Creatinine Ratio 20, Glucose Level 137, Calcium Level 8.7, Corrected Calcium 9.3 , Total Bilirubin 0.4, Aspartate Amino Transf (AST/SGOT) 25, Alanine Aminotransferase (ALT/SGPT) 13, Alkaline Phosphatase 104, Total Protein 6.8, Albumin 3.2 08/10/18 05:42: Glucometer 151 08/10/18 09:44: Glucometer 250 08/10/18 14:44: Glucometer 310 08/10/18 20:55: Glucometer 200 08/11/18 04:05: White Blood Count 4.7, Red Blood Count 3.40, Hemoglobin 8.6, Hematocrit 27, Mean Corpuscular Volume 80, Mean Corpuscular Hemoglobin 25, Mean Corpuscular Hemoglobin Concent 32, Red Cell Distribution Width 17.7, Platelet Count 231, Mean Platelet Volume 10.2, Neutrophils (%) (Auto) 66, Lymphocytes (%) (Auto) 22 , Monocytes (%) (Auto) 11, Eosinophils (%) (Auto) 2, Basophils (%) (Auto) 0, Neutrophils # (Auto) 3.1, Lymphocytes # (Auto) 1.0, Monocytes # (Auto) 0.5, Eosinophils # (Auto) 0.1, Basophils # (Auto) 0.0, Sodium Level 134, Potassium Level 3.4, Chloride Level 95, Carbon Dioxide Level 24, Anion Gap 15, Blood Urea Nitrogen 56, Creatinine 2.66, Estimat Glomerular Filtration Rate 17, BUN/ Creatinine Ratio 21, Glucose Level 243, Calcium Level 8.5 08/11/18 06:18: Glucometer 233 08/11/18 09:33: Glucometer 290 08/11/18 15:36: Glucometer 237 08/11/18 15:56: Glucometer 227 08/11/18 19:57: Glucometer 201 08/12/18 04:00: White Blood Count 4.7, Red Blood Count 3.38, Hemoglobin 8.5, Hematocrit 27, Mean Corpuscular Volume 80, Mean Corpuscular Hemoglobin 25, Mean Corpuscular Hemoglobin Concent 32, Red Cell Distribution Width 17.2, Platelet Count 226, Mean Platelet Volume 10.5, Sodium Level 137, Potassium Level 3.1, Chloride Level 95, Carbon Dioxide Level 26, Anion Gap 16, Blood Urea Nitrogen 61, Creatinine 2.56, Estimat Glomerular Filtration Rate 18, BUN/Creatinine Ratio 24 , Glucose Level 73, Calcium Level 8.5 08/12/18 05:09: Glucometer 87 08/12/18 10:10: Glucometer 212 Discussion & Recommendations [facility] Patient lost 22 pounds. Discharge Home Medications: Active Scripts Active Metolazone 2.5 Mg Tablet 2.5 Mg PO UD 30 Days Take 1 tablet 30 minutes before Bumex every 3 days. Bumetanide 1 Mg Tablet 2 Mg PO BID 30 Days Reported Tylenol Extra Strength (Acetaminophen) 500 Mg Tablet 1,000 Mg PO Q8H PRN TAKES 2 (500MG) TABLETS Novolog Flexpen (Insulin Aspart) 300 Units/3 Ml Solution SC ACHS 0-200 = 0 UNITS 201-250 = 3 UNITS 251-300 = 5 UNITS 301-350 = 7 UNITS 351-400 = 9 UNITS >400 OR <60 CALL PHYSICIAN Hydrocodone-Acetamin 5-325 mg (Hydrocodone/Acetaminophen) 1 Each Tablet 1 Tab PO TID Tresiba Flextouch U-100 (Insulin Degludec) 100 Unit/1 Ml Insuln.pen 13 Units SC DAILY Sertraline HCl 50 Mg Tablet 25 Mg PO HS TAKES 1/2 (50MG) TABLET Metoprolol Tartrate 25 Mg Tablet 12.5 Mg PO DAILY TAKES 1/2 (25MG) TABLET Guaifenesin Dm Syrup (Guaifenesin/Dextromethorphan) 5 Ml Syrup 10 Ml PO Q4H PRN Clopidogrel (Clopidogrel Bisulfate) 75 Mg Tablet 75 Mg PO HS Gabapentin 300 Mg Capsule 300 Mg PO BID Aspirin EC (Aspirin) 81 Mg Tablet. 81 Mg PO HS Atorvastatin Calcium 80 Mg Tablet 80 Mg PO HS Instructions to patient/family Please see electronic discharge instructions given to patient. Clinical Quality Measures DVT/VTE Risk/Contraindication: Risk Factor Score Per Nursin RFS Level Per Nursing on Admit: 4+=Very High Contraindications-Mechi: Other *list below* MERRICK SIEGEL DO Aug 15, 2018 07:29
== END 2018-08-12 14:22 | DRG 291 ==
LOC: EDUNIT# 09:34 → ER 09:35 → 4TH 13:08
PROVIDERS: ADMIT Family Medicine; ATTEND Family Medicine
DX: I13.0 Hypertensive heart and chronic kidney disease with heart failure and stage 1 through stage 4 chronic kidney disease, or unspecified chronic kidney disease (principal); I50.43 Acute on chronic combined systolic (congestive) and diastolic (congestive) heart failure; J18.9 Pneumonia, unspecified organism; N18.4 Chronic kidney disease, stage 4 (severe); N17.9 Acute kidney failure, unspecified; J44.1 Chronic obstructive pulmonary disease with (acute) exacerbation; J44.0 Chronic obstructive pulmonary disease with (acute) lower respiratory infection; E87.1 Hypo-osmolality and hyponatremia; Z66 Do not resuscitate; I25.10 Atherosclerotic heart disease of native coronary artery without angina pectoris; G30.9 Alzheimer's disease, unspecified; F02.81 Dementia in other diseases classified elsewhere, unspecified severity, with behavioral disturbance; D64.9 Anemia, unspecified; F17.210 Nicotine dependence, cigarettes, uncomplicated; E11.42 Type 2 diabetes mellitus with diabetic polyneuropathy; E78.00 Pure hypercholesterolemia, unspecified; I08.1 Rheumatic disorders of both mitral and tricuspid valves; G40.909 Epilepsy, unspecified, not intractable, without status epilepticus; K21.9 Gastro-esophageal reflux disease without esophagitis; F41.9 Anxiety disorder, unspecified; F32.9 Major depressive disorder, single episode, unspecified; R53.1 Weakness; R29.6 Repeated falls; I25.2 Old myocardial infarction; M81.0 Age-related osteoporosis without current pathological fracture; M47.892 Other spondylosis, cervical region; Z95.1 Presence of aortocoronary bypass graft; Z95.5 Presence of coronary angioplasty implant and graft; Z86.73 Personal history of transient ischemic attack (TIA), and cerebral infarction without residual deficits; Z79.4 Long term (current) use of insulin
CPT/HCPCS: 36415; 51702; 71045; 71046; 80048; 80053; 81000; 82962; 83735; 83880; 85025; 85027; 85652; 86141; 87088; 93005; 93041; 93306; 94640; 94760; 96374

== ENCOUNTER 2018-09-06 08:49 | Outpatient (RCR) | payer MEDICARE ==
[~2018-09-06] VITALS: Ht 170.2 cm; Wt 78.0 kg
[~2018-09-06 08:49] MED LIST changes: +ACET-2267 PO; +BUME1TAB4 PO; +HYDR-3812 PO; +INSU100I14 SC; +INSU100I32 SC; +IRON150C3 PO; +METO2.5T PO
[2018-09-06 08:55] VITALS: BP 114/47
[2018-09-06] MEDS ORDERED: diphenhydrAMINE 50 MG/ML INJ (BENADRYL) IV PRN (09:15)
[2018-09-06] MEDS ORDERED: FERRIC CARBOXYMALTOSE INJ 750 MG in NS (IVPB) 250 ML IV SCH (09:15)
[2018-09-06] MEDS ORDERED: ACETAMINOPHEN 500 MG TAB (TYLENOL) PO PRN (09:15)
[2018-09-06 10:06] VITALS: BP 125/71
[2018-09-26] MEDS ORDERED: POTA20TA15 PO (12:25)
[2018-09-26] MEDS ORDERED: BUME2TAB3 PO (12:25)
[2018-09-26] MEDS ORDERED: LIDO1ADH41 TD (12:25)
[2018-09-26] MEDS ORDERED: LIDO1ADH TD (12:25)
[2018-09-26] MEDS ORDERED: BACL10TA PO (12:25)
[2018-09-26] MEDS ORDERED: METO2.5T PO (12:25)
[2018-09-28] MEDS ORDERED: LEVO500T2 PO (08:40)
[2018-11-15] MEDS ORDERED: ALTEPLASE 2 MG (CATHFLO) ONE (16:07)
== END 2018-12-05 | disposition home or self-care (01) ==
LOC: SDC 08:49
PROVIDERS: ATTEND Internal Medicine Nephrology
DX: D50.9 Iron deficiency anemia, unspecified (principal); D63.1 Anemia in chronic kidney disease; N18.3 Chronic kidney disease, stage 3 (moderate)
CPT/HCPCS: 96365

== ENCOUNTER 2018-09-24 02:19 | Inpatient (IN) | payer MEDICARE, MEDICAID ==
[~2018-09-24] VITALS: Ht 170.2 cm; Wt 75.3 kg
[2018-09-24] VITALS (21 sets, daily range): BP systolic 106–148; BP diastolic 53–93
[2018-09-24] MEDS ORDERED: LORazepam INJ 2 MG/ML (ATIVAN) VIAL ONE (02:36)
[2018-09-24 02:38] LABS: BASOPHILS % (AUTO) 0 % (0-10); EOSINOPHILS # (AUTO) 0.2 10^3/uL (0.0-0.3); EOSINOPHILS % (AUTO) 2 % (0-10); HEMATOCRIT 30 % (35-52); HEMOGLOBIN 9.4 G/DL (11.5-16.0); LYMPHOCYTES % (AUTO) 14 % (12-44); MEAN CORPUSCULAR HEMOGLOBIN 26 PG (25-34); MEAN CORPUSCULAR HGB CONC 32 G/DL (32-36); MEAN CORPUSCULAR VOLUME 82 FL (80-99); MEAN PLATELET VOLUME 10.2 FL (7.4-10.4); MONOCYTES # (AUTO) 0.8 X 10^3 (0.0-1.0); MONOCYTES % (AUTO) 11 % (0-12); NEUTROPHILS # (AUTO) 5.1 X 10^3 (1.8-7.8); NEUTROPHILS % (AUTO) 72 % (42-75); PLATELET COUNT 222 10^3/uL (130-400); RED CELL DISTRIBUTION WIDTH 18.7 % (10.0-14.5)
[2018-09-24 02:43] LABS: BILIRUBIN,URINE NEGATIVE (NEGATIVE); CLARITY,URINE SLIGHTLY CLOUDY; COLOR,URINE YELLOW; GLUCOSE, URINE (UA) NEGATIVE (NEGATIVE); KETONES,URINE NEGATIVE (NEGATIVE); LEUKOCYTE ESTERASE ,URINE 3+ (NEGATIVE); NITRITE,URINE NEGATIVE (NEGATIVE); PH,URINE 6 (5-9); PROTEIN,URINE 3+ (NEGATIVE); UROBILINOGEN,URINE NORMAL (NORMAL)
[2018-09-24] MEDS ORDERED: LORazepam INJ 2 MG/ML (ATIVAN) VIAL IVP ONE (02:45)
--- NOTE | 2018-09-24 02:48 | ED General ---
General Chief Complaint: Altered Mental Status Stated Complaint: AMS,SLOW,ARMS JERKY Source of Information: EMS, [facility] Records, Old Records Exam Limitations: Other (PT IS POOR HISTORIAN AND UNABLE TO GIVE ANY RELIABLE INFORMATION) History of Present Illness Date Seen by Provider: Sep 24, 2018 Time Seen by Provider: 02:31 Initial Comments PT ARRIVES VIA EMS FROM [facility] REPORT THAT PT HAS BEEN MORE DROWSY AND SLOW SINCE YESTERDAY HAS BEEN HAVING JERKING OF HER ARMS SINCE YESTERDAY WAS REPORTED TO EMS BY [facility] STAFF THAT PT NORMALLY SELF-PROPELS IN THE WHEELCHAIR, BUT HAS NOT BEEN ABLE TO DO THAT SINCE YESTERDAY NO OTHER INFORMATION IS OBTAINED FROM [facility] PT KEEPS EYES CLOSED AND WILL ONLY ANSWER A COUPLE OF YES/NO QUESTIONS ANSWERS "YES" TO HER NAME ANSWERS "NO" WHEN QUESTIONED IF SHE HAD PAIN ANYWHERE, ALSO ANSWERS "NO" TO HEADACHE, "NO" TO NAUSEA, "NO" TO SHORTNESS OF BREATH PT WITH A MULTITUDE OF VISITS/ ADMITS HERE--13 IN THE LAST YEAR LAST ADMIT WAS 08/04-08/12 FOR CHF/FLUID OVERLOAD PCP: DR. SIEGEL Allergies and Home Medications Allergies Coded Allergies: NKANo Known Allergies (Verified Allergy, Unknown, 07/15/18) Home Medications Acetaminophen 500 Mg Tablet, 1,000 MG PO Q8H PRN for PAIN-MODERATE, (Reported) TAKES 2 (500MG) TABLETS Aspirin 81 Mg Tablet.dr, 81 MG PO HS, (Reported) Atorvastatin Calcium 80 Mg Tablet, 80 MG PO HS, (Reported) Bumetanide 1 Mg Tablet, 2 MG PO BID Prescribed by: MERRICK SIEGEL on 08/12/18 1259 Clopidogrel Bisulfate 75 Mg Tablet, 75 MG PO HS, (Reported) Gabapentin 300 Mg Capsule, 300 MG PO BID, (Reported) Guaifenesin/Dextromethorphan 5 Ml Syrup, 10 ML PO Q4H PRN for COUGH, (Reported) Hydrocodone/Acetaminophen 1 Each Tablet, 1 TAB PO TID, (Reported) Insulin Aspart 300 Units/3 Ml Solution, SC ACHS, (Reported) 0-200 = 0 UNITS 201-250 = 3 UNITS 251-300 = 5 UNITS 301-350 = 7 UNITS 351- 400 = 9 UNITS >400 OR <60 CALL PHYSICIAN Insulin Degludec 100 Unit/1 Ml Insuln.pen, 13 UNITS SC DAILY, (Reported) Metolazone 2.5 Mg Tablet, 2.5 MG PO UD Take 1 tablet 30 minutes before Bumex every 3 days. Prescribed by: BD PINEDA on 08/12/18 1407 Metoprolol Tartrate 25 Mg Tablet, 12.5 MG PO DAILY, (Reported) TAKES 1/2 (25MG) TABLET Sertraline HCl 50 Mg Tablet, 25 MG PO HS, (Reported) TAKES 1/2 (50MG) TABLET Patient Home Medication List Home Medication List Reviewed: Yes Review of Systems Review of Systems Constitutional: other (UNABLE TO OBTAIN ANY RELEVANT INFORMATION FROM PT) Respiratory: No short of breath Gastrointestinal: No nausea Psychiatric/Neurological: Denies Headache Past Kaairva-Zldiht-Ilylos Hx Patient Social History Alcohol Use: Denies Use Recreational Drug Use: No Smoking Status: Current Everyday Smoker Type Used: Cigarettes 2nd Hand Smoke Exposure: No Recent Foreign Travel: No Contact w/Someone Who Travel: No Recent Hopitalizations: No Immunizations Up To Date Tetanus Booster (TDap): Unknown PED Vaccines UTD: No Date of Pneumonia Vaccine: Jun 02, 2011 Date of Influenza Vaccine: Apr 11, 2018 Seasonal Allergies Seasonal Allergies: No Past Medical History Surgeries: Yes (CARDIAC CATHS WITH STENTS X3, ANGIOPLASTIES AND CABG) Appendectomy, Cardiac, CABG, Section, Coronary Stent, Hysterectomy, Oophorectomy, Orthopedic Respiratory: Yes COPD Currently Using CPAP: No Currently Using BIPAP: No Cardiac: Yes (CHF; NSTEMI ; CARDIAC CATHS--STENTS X 3) Chronic Edema/Swelling, Coronary Artery Disease, Heart Attack, High Cholesterol , Irregular Heartbeat Neurological: Yes Neuropathy, Seizure Disorder, TIA Reproductive Disorders: No Female Reproductive Disorders: Denies 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: Hysterectomy, Menopausal Sexually Transmitted Disease: No HIV/AIDS: No Genitourinary: Yes Renal Failure Gastrointestinal: Yes Gastroesophageal Reflux, Ulcer Musculoskeletal: Yes (FALLS, GENERALIZED WEAKNESS, POOR MOBILITY-USES WHEELCHAIR) Osteoporosis, Arthritis, Chronic Back Pain Endocrine: Yes Diabetes, Insulin dep HEENT: Yes Cataract Loss of Vision: Denies Hearing Impairment: Denies Cancer: No Psychosocial: Yes Anxiety, Depression Integumentary: No Blood Disorders: No Adverse Reaction/Blood Tranf: No Family Medical History FH: suicide FH: uterine cancer 19 MOTHER FHx: diabetes mellitus 19 MOTHER No Pertinent Family Hx Physical Exam Vital Signs Vital Signs - First Documented 09/24/18 09/24/18 02:25 04:05 Temp 96.3 Pulse 68 Resp 13 B/P (MAP) 119/71 (87) Pulse Ox 94 O2 Delivery Room Air O2 Flow Rate 2.00 Capillary Refill : Height, Weight, BMI Height: 5'7.00" Weight: 172lbs. 0.0oz. 78.906348oq; 28.6 BMI Method:Stated General Appearance: WD/WN, Other (PT WITH EYES SHUT TIGHTLY, WILL ANSWER A FEW YES/NO QUESTIONS AND OTHERWISE IS NOT TALKING. SPEECH IS CLEAR. ) HEENT: PERRL/EOMI Neck: Normal Inspection Respiratory: Normal Breath Sounds, No Accessory Muscle Use, No Respiratory Distress Cardiovascular: Regular Rate, Rhythm, No Edema, No JVD, No Murmur, Normal Peripheral Pulses Gastrointestinal: Non Tender, Soft Extremity: Normal Range of Motion, No Pedal Edema Neurologic/Psychiatric: Alert, No Motor/Sensory Deficits, Other (MENTATION ABOVE. PT WITH TONIC-CLONIC ACTIVITY OF BOTH ARMS, WITH FISTS CLENCHED AND ARMS OVER HEAD, BENT AT ELBOWS WITH HANDS NEAR SIDES OF HEAD. ALSO HAS TONIC-CLONIC ACITIVITY OF RIGHT THIGH MUSCLES. PT IS ABLE TO ANSWER YES/NO QUESTIONS AND SHE ANSWERS APPROPRIATELY, BUT DIFFICULT TO DETERMINE LEVEL OF ORIENTATION PT MOSTLY WILL NOT TALK.) Skin: Normal Color, Warm/Dry Focused Exam Lactate Level 09/24/18 02:25: Lactic Acid Level 1.55 Lactic Acid Level Progress/Results/Core Measures Suspected Sepsis SIRS Temperature: Pulse: Respiratory Rate: Laboratory Tests 09/24/18 02:25: White Blood Count 7.0 Blood Pressure / Mean: 09/24/18 02:25: Lactic Acid Level 1.55 Laboratory Tests 09/24/18 02:25: Creatinine 2.87H, INR Comment 1.1, Platelet Count 222, Total Bilirubin 0.4 Results/Orders Lab Results Laboratory Tests Test 09/24/18 02:25 09/24/18 02:35 09/24/18 06:10 Range/Units White Blood Count 7.0 4.3-11.0 10^3/uL Red Blood Count 3.58 L 4.35-5.85 10^6/uL Hemoglobin 9.4 L 11.5-16.0 G/DL Hematocrit 30 L 35-52 % Mean Corpuscular Volume 82 80-99 FL Mean Corpuscular Hemoglobin 26 25-34 PG Mean Corpuscular Hemoglobin Concent 32 32-36 G/DL Red Cell Distribution Width 18.7 H 10.0-14.5 % Platelet Count 222 130-400 10^3/uL Mean Platelet Volume 10.2 7.4-10.4 FL Neutrophils (%) (Auto) 72 42-75 % Lymphocytes (%) (Auto) 14 12-44 % Monocytes (%) (Auto) 11 0-12 % Eosinophils (%) (Auto) 2 0-10 % Basophils (%) (Auto) 0 0-10 % Neutrophils # (Auto) 5.1 1.8-7.8 X 10^3 Lymphocytes # (Auto) 1.0 1.0-4.0 X 10^3 Monocytes # (Auto) 0.8 0.0-1.0 X 10^3 Eosinophils # (Auto) 0.2 0.0-0.3 10^3/uL Basophils # (Auto) 0.0 0.0-0.1 10^3/uL Prothrombin Time 15.0 H 12.2-14.7 SEC INR Comment 1.1 0.8-1.4 Activated Partial Thromboplast Time 31 24-35 SEC Sodium Level 131 L 135-145 MMOL/L Potassium Level 3.4 L 3.6-5.0 MMOL/L Chloride Level 91 L 98-107 MMOL/L Carbon Dioxide Level 24 21-32 MMOL/L Anion Gap 16 H 5-14 MMOL/L Blood Urea Nitrogen 77 H 7-18 MG/DL Creatinine 2.87 H 0.60-1.30 MG/DL Estimat Glomerular Filtration Rate 16 BUN/Creatinine Ratio 27 Glucose Level 121 H 70-105 MG/DL Lactic Acid Level 1.55 0.50-2.00 MMOL/L Calcium Level 9.2 8.5-10.1 MG/DL Corrected Calcium 9.4 8.5-10.1 MG/DL Magnesium Level 2.2 1.8-2.4 MG/DL Total Bilirubin 0.4 0.1-1.0 MG/DL Aspartate Amino Transf (AST/SGOT) 16 5-34 U/L Alanine Aminotransferase (ALT/SGPT) 9 0-55 U/L Alkaline Phosphatase 93 40-136 U/L Troponin I 0.053 H <0.028 NG/ML B-Type Natriuretic Peptide 2319.3 H <100.0 PG/ML Total Protein 8.0 6.4-8.2 GM/DL Albumin 3.7 3.2-4.5 GM/DL TSH [place] Testing 1.66 0.35-4.94 UIU/ML Urine Color YELLOW Urine Clarity SLIGHTLY CLOUDY Urine pH 6 5-9 Urine Specific [place] 1.010 L 1.016-1.022 Urine Protein 3+ H NEGATIVE Urine Glucose (UA) NEGATIVE NEGATIVE Urine Ketones NEGATIVE NEGATIVE Urine Nitrite NEGATIVE NEGATIVE Urine Bilirubin NEGATIVE NEGATIVE Urine Urobilinogen NORMAL NORMAL MG/DL Urine Leukocyte Esterase 3+ H NEGATIVE Urine RBC (Auto) 3+ H NEGATIVE Urine RBC 25-50 H /HPF Urine WBC 50-100 H /HPF Urine Crystals NONE /LPF Urine Bacteria FEW H /HPF Urine Casts NONE /LPF Urine Mucus NEGATIVE /LPF Urine Culture Indicated YES Blood Gas Puncture Site RT RAD Blood Gas Patient Temperature 97.8 Arterial Blood pH 7.37 7.37-7.43 Arterial Blood Partial Pressure CO2 51 H 35-45 MMHG Arterial Blood Partial Pressure O2 86 79-93 MMHG Arterial Blood HCO3 29 H 23-27 MMOL/L Arterial Blood Total CO2 30.5 21.0-31.0 MMOL/L Arterial Blood Oxygen Saturation 97 94-100 % Arterial Blood Base Excess 3.9 H -2.5-2.5 MMOL/L Benny Test RT RAD Blood Gas Ventilator Setting NO Blood Gas Inspired Oxygen NC @ 2L Micro Results Microbiology 09/24/18 Influenza Types A,B Antigen (ESTUARDO) - Final, Complete My Orders Orders - TATUM CESPEDES DO Ct Head Wo-R/O Stroke (09/24/18 02:21) Saline Lock/Iv-Start (09/24/18 02:21) Chest 1 View, Ap/Pa Only (09/24/18 02:21) Cbc With Automated Diff (09/24/18 02:21) Comprehensive Metabolic Panel (09/24/18 02:21) Lactic Acid Analyzer (09/24/18 02:21) Magnesium (09/24/18 02:21) Protime With Inr (09/24/18 02:21) Partial Thromboplastin Time (09/24/18 02:21) Thyroid Analyzer (09/24/18 02:21) Troponin I (09/24/18 02:21) Ua Culture If Indicated (09/24/18 02:21) Blood Culture (09/24/18 02:21) Influenza A And B Antigens (09/24/18 02:21) Accucheck Stat ONCE (09/24/18 02:21) Ekg Tracing (09/24/18 02:21) Catheter(Urinary) Insert & Ass 03,15 (09/24/18 02:21) Monitor-Rhythm Ecg Trace Only (09/24/18 02:21) Lorazepam Injection (Ativan Injection) (09/24/18 02:45) Lorazepam Injection (Ativan Injection) (09/24/18 02:36) Urine Culture (09/24/18 02:35) Ceftriaxone For Iv Use (Rocephin For I (09/24/18 03:00) Oseltamivir 75 Mg Capsule (Tamiflu 75 (09/24/18 03:30) Ceftriaxone For Iv Use (Rocephin For I (09/24/18 03:18) Water (Sterile) For Injection (Sterile W (09/24/18 03:18) BNP (09/24/18 03:54) Ondansetron Injection (Zofran Injectio (09/24/18 05:00) Medications Given in ED Current Medications Medications Dose Ordered Sig/Roman Route Start Time Stop Time Status Last Admin Dose Admin Ceftriaxone Sodium 1000 mg/ Sterile Water 10 ml @ 200 mls/hr ONCE ONCE IV 09/24/18 03:00 09/24/18 04:54 DC 09/24/18 03:22 200 MLS/HR Lorazepam 1 mg ONCE ONCE IVP 09/24/18 02:45 09/24/18 02:46 DC 09/24/18 02:37 1 MG Oseltamivir Phosphate 75 mg ONCE ONCE PO 09/24/18 03:30 09/24/18 04:57 DC 09/24/18 03:22 75 MG Vital Signs/I&O 09/24/18 09/24/18 09/24/18 09/24/18 02:25 04:05 04:40 05:08 Temp 96.3 96.0 Pulse 68 76 75 Resp 13 21 B/P (MAP) 119/71 (87) 124/59 (80) Pulse Ox 94 92 100 O2 Delivery Room Air Nasal Cannula Nasal Cannula O2 Flow Rate 2.00 2.00 09/24/18 09/24/18 09/24/18 09/24/18 05:15 05:30 05:45 06:00 Temp 97.8 Pulse 72 72 73 72 Resp 15 15 15 14 B/P (MAP) 141/62 (88) 118/53 (74) 119/53 (75) 107/55 (72) Pulse Ox 98 99 99 97 O2 Delivery Nasal Cannula Nasal Cannula Nasal Cannula Nasal Cannula O2 Flow Rate 2.00 2.00 2.00 2.00 Capillary Refill : Progress Note : Progress Note PT GIVEN ATIVAN AND SEIZURE LIKE ACTIVITY STOPPED AND PT 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 FOR REMAINDER OF ER STAY VITALS REMAINED STABLE ON REVIEW OF OLD RECORDS, PT HAS SEIZURE DISORDER LISTED PART OF PMH AND IS ON GABAPENTIN ECG Initial ECG Impression Date: Sep 24, 2018 Initial ECG Impression Time: 03:12 Initial ECG Rate: 62 Initial ECG Rhythm: Normal Sinus Initial ECG Impression: Nonspecific Changes (FLAT T WAVES DIFFUSELY, LOW VOLTAGE), 1st Degree AV Block Initial ECG Comparisson: Unchanged Diagnostic Imaging Comments CXR--CARDIOMEGALY, BIBASILAR INFILTRATES, PENDING RADIOLOGIST REVIEW CT HEAD--NO ACUTE PROCESS, CHRONIC CHANGES, PER [facility] VIA FAX @ [phone] Reviewed: Reviewed by Tx Departure Communication (Admissions) [id number]--SPOKE WITH DR. CHOUDHARY, HOSPITALIST COPY TECHNICIAN, ACCEPTS PT FOR ADMIT Impression Primary Impression: Altered mental status Additional Impressions: Influenza B UTI (urinary tract infection) COPD (chronic obstructive pulmonary disease) CHF (congestive heart failure) Chronic renal failure Elevated troponin Seizure-like activity Electrolyte imbalance Disposition: ADMITTED INPATIENT Condition: Stable Admissions Decision to Admit Reason: Admit from ER (General) Decision to Admit/Date: Sep 24, 2018 Time/Decision to Admit Time: 04:00 Departure-Patient Inst. Referrals: MERRICK SIEGEL DO (PCP/Family) Primary Care Physician TATUM CESPEDES DO Sep 24, 2018 02:48
[2018-09-24 02:49] LABS: INR 1.1 (0.8-1.4)
[2018-09-24 02:51] LABS: BACTERIA,URINE FEW /HPF; RBC,URINE 25-50 /HPF; WBC,URINE 50-100 /HPF
[2018-09-24 02:56] LABS: ALBUMIN 3.7 GM/DL (3.2-4.5); BILIRUBIN,TOTAL 0.4 MG/DL (0.1-1.0); CALCIUM 9.2 MG/DL (8.5-10.1); CREATININE SERUM 2.87 MG/DL (0.60-1.30); MAGNESIUM 2.2 MG/DL (1.8-2.4); POTASSIUM 3.4 MMOL/L (3.6-5.0)
[2018-09-24] MEDS ORDERED: cefTRIAXone FOR IV USE 1,000 MG in WATER (STERILE) FOR INJECTION 10 ML IV ONE (03:00)
[2018-09-24 03:16] LABS: TSH (THYROID ANALYZER) 1.66 UIU/ML (0.35-4.94)
[2018-09-24] MEDS ORDERED: cefTRIAXone 1,000 MG IV (ROCEPHIN) VIAL ONE (03:18)
[2018-09-24] MEDS ORDERED: WATER (STERILE) FOR INJECTION 10 ML ONE (03:18)
[2018-09-24] MEDS ORDERED: OSELTAMIVIR 75 MG (TAMIFLU) CAPSULE PO ONE (03:30)
[2018-09-24] MEDS ORDERED: ONDANSETRON 4 MG/2 ML (SDV) Z0FRAN ONE (04:54)
[2018-09-24] MEDS ORDERED: ONDANSETRON 4 MG/2 ML (SDV) Z0FRAN IVP ONE (05:00)
[2018-09-24] MEDS ORDERED: OSELTAMIVIR 30 MG (TAMIFLU) CAPSULE PO ONE (05:00)
[2018-09-24] MEDS ORDERED: ACETAMINOPHEN 500 MG TAB (TYLENOL) PO PRN (05:15)
[2018-09-24] MEDS ORDERED: ONDANSETRON 4 MG/2 ML (SDV) Z0FRAN IV PRN (05:15)
[2018-09-24] MEDS ORDERED: NITROGLYCERIN 0.4 MG SL TABS BTL 25'S SL PRN (05:15)
[2018-09-24] MEDS ORDERED: LORazepam INJ 2 MG/ML (ATIVAN) VIAL IV PRN (05:15)
--- NOTE | 2018-09-24 05:29 | Pulmonary Consultation ---
History of Present Illness History of Present Illness Date of Consultation 09/24/18 05:24 Time Seen by Provider: 05:24 Date of Admission History of Present Illness 77yo from ECF secondary to MS changes. Allergies and Home Medications Allergies Coded Allergies: Jillian Known Allergies (Verified Allergy, Unknown, 07/15/18) Home Medications Acetaminophen 500 Mg Tablet, 1,000 MG PO Q8H PRN for PAIN-MODERATE, (Reported) TAKES 2 (500MG) TABLETS Aspirin 81 Mg Tablet.dr, 81 MG PO HS, (Reported) Atorvastatin Calcium 80 Mg Tablet, 80 MG PO HS, (Reported) Bumetanide 1 Mg Tablet, 2 MG PO BID Prescribed by: MERIRCK SIEGEL on 08/12/18 1259 Clopidogrel Bisulfate 75 Mg Tablet, 75 MG PO HS, (Reported) Gabapentin 300 Mg Capsule, 300 MG PO BID, (Reported) Guaifenesin/Dextromethorphan 5 Ml Syrup, 10 ML PO Q4H PRN for COUGH, (Reported) Hydrocodone/Acetaminophen 1 Each Tablet, 1 TAB PO TID, (Reported) Insulin Aspart 300 Units/3 Ml Solution, SC ACHS, (Reported) 0-200 = 0 UNITS 201-250 = 3 UNITS 251-300 = 5 UNITS 301-350 = 7 UNITS 351- 400 = 9 UNITS >400 OR <60 CALL PHYSICIAN Insulin Degludec 100 Unit/1 Ml Insuln.pen, 13 UNITS SC DAILY, (Reported) Metolazone 2.5 Mg Tablet, 2.5 MG PO UD Take 1 tablet 30 minutes before Bumex every 3 days. Prescribed by: DB PNIEDA on 08/12/18 1407 Metoprolol Tartrate 25 Mg Tablet, 12.5 MG PO DAILY, (Reported) TAKES 1/2 (25MG) TABLET Sertraline HCl 50 Mg Tablet, 25 MG PO HS, (Reported) TAKES 1/2 (50MG) TABLET Past Vakbnif-Mayyng-Eejkos Hx Patient Social History Alcohol Use: Denies Use Recreational Drug Use: No Smoking Status: Current Everyday Smoker Type Used: Cigarettes 2nd Hand Smoke Exposure: No Recent Foreign Travel: No Contact w/Someone Who Travel: No Recent Infectious Disease Expo: No Recent Hopitalizations: No Immunizations Up To Date Tetanus Booster (TDap): Unknown PED Vaccines UTD: No Date of Pneumonia Vaccine: Jun 02, 2011 Date of Influenza Vaccine: Apr 11, 2018 Seasonal Allergies Seasonal Allergies: No Past Medical History Surgeries: Yes (CARDIAC CATHS WITH STENTS X3, ANGIOPLASTIES AND CABG) Appendectomy, Cardiac, CABG, Section, Coronary Stent, Hysterectomy, Oophorectomy, Orthopedic Respiratory: Yes COPD Currently Using CPAP: No Currently Using BIPAP: No Cardiac: Yes (CHF; NSTEMI ) Coronary Artery Disease, Heart Attack, High Cholesterol, Hypertension, Irregular Heartbeat Neurological: Yes (cog. 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, Menopausal Sexually Transmitted Disease: No HIV/AIDS: No Genitourinary: Yes Renal Failure Gastrointestinal: Yes Gastroesophageal Reflux, Ulcer Musculoskeletal: Yes Osteoporosis, Arthritis, Chronic Back Pain Endocrine: Yes Diabetes, Insulin dep HEENT: Yes Cataract Loss of Vision: Denies Hearing Impairment: Denies Cancer: No Psychosocial: Yes Anxiety, Depression Integumentary: No Blood Disorders: No Adverse Reaction/Blood Tranf: No Family Medical History FH: suicide FH: uterine cancer 19 MOTHER FHx: diabetes mellitus 19 MOTHER No Pertinent Family Hx Review of Systems Time Seen by Provider: 05:43 Sepsis Event Evaluation Height, Weight, BMI Height: 5'7.00" Weight: 172lbs. 0.0oz. 78.342278dv; 28.6 BMI Method:Stated Exam Exam Vital Signs Date Time Temp Pulse Resp B/P (MAP) Pulse Ox O2 Delivery O2 Flow Rate FiO2 09/24/18 04:40 96.0 76 21 124/59 (80) 100 Nasal Cannula 2.00 09/24/18 04:05 92 Nasal Cannula 2.00 09/24/18 02:25 96.3 68 13 119/71 (87) 94 Room Air I & O 09/24/18 07:00 Intake Total 10 ml Balance 10 ml Height & Weight Height: 5'7.00" Weight: 172lbs. 0.0oz. 78.657606mn; 28.6 BMI Method:Stated Capillary Refill: Less Than 3 Seconds Results Lab Laboratory Tests 09/24/18 02:25 Assessment/Plan Assessment/Plan Acute seizures/ Metabolic encephalopathy -- Pt does have hx of seizures -Monitor -Will start Keppra COPDAE with Influenza B -Tamiflu CAD with CHF- systoic/diastolic 08/09/18 EF 35 % -Cardiology consulted -Monitor NSTEMI -Cardiology consulted -EKG -trend serial troponins Acute on chronic renal failure stage 4 KAMRYN GREENE DO Sep 24, 2018 05:29
[2018-09-24] MEDS: POTASSIUM CL 10MEQ/50ML IVPB 50 ML IV SCH ×3 (05:45→08:09)
[2018-09-24 06:18] LABS: ABG BASE EXCESS 3.9 MMOL/L (-2.5-2.5); ABG OXYGEN SATURATION 97 % (94-100); ABG PCO2 51 MMHG (35-45); ABG PH 7.37 (7.37-7.43); ABG PO2 86 MMHG (79-93); ABG TCO2 30.5 MMOL/L (21.0-31.0)
[2018-09-24 06:20] LABS: ALLENS TEST RT RAD; INSPIRED O2 NC @ 2L; PATIENT TEMP 97.8; VENTILATOR NO
--- NOTE | 2018-09-24 06:40 | Diagnostic Imaging Report ---
Portable erect AP chest at 309 hours. INDICATION: Chest pain. FINDINGS: The cardiomegaly and the sternal wires and surgical clips noted on the prior exam of 08/12/2018 are again evident and no different. The bibasilar pneumonia/atelectasis and bilateral pleural effusions seen previously have diminished significantly, however. There is still small amount of atelectasis/infiltrate and fluid present in both lung bases. The central pulmonary vascularity is prominent and there is most likely an element of pulmonary congestion present. There is an area of increased density in the right infrahilar region but this seem similar to the prior exam of 10/02/2017 and consequently is probably related to the pulmonary vessels in this area alone. The mediastinum is not widened. The osseous structures are intact. IMPRESSION: The appearance of the chest has improved as the lung bases do seem better aerated. However, there is some residual pneumonia/atelectasis and fluid bilaterally and there also appears to be an element of pulmonary congestion present. A followup exam would be recommended for continued evaluation. Dictated by: Dictated on workstation # [id number]
--- NOTE | 2018-09-24 06:43 | Diagnostic Imaging Report ---
PROCEDURE: CT head wo r/o stroke. TECHNIQUE: Multiple contiguous axial images were obtained through the brain without the use of intravenous contrast. Auto Exposure Controls were utilized during the CT exam to meet ALARA standards for radiation dose reduction. INDICATION: Altered mental status. FINDINGS: There is no mass, shift of midline or hemorrhage to suggest an acute intracranial abnormality. The ventricles are not abnormally dilated and stable in size when compared to the prior exam of 07/01/2018. The senescent changes seen on the prior study including cortical atrophy and periventricular encephalomalacia are again evident and no different. The bone windows show no sign of a fracture or destructive lesion. The orbits are symmetrical and within normal limits. The sinuses are generally clear. IMPRESSION: 1. There is no evidence for an acute intracranial abnormality.When compared to the previous study, there has been no significant change. 2. If clinical concern regarding an underlying abnormality persists, then MRI would be recommended for further study. Dictated by: Dictated on workstation # [id number]
[2018-09-24] MEDS: AZITHROMYCIN INJECTION 500 MG in NS (IVPB) 250 ML IV SCH ×2 (07:04→08:10)
--- NOTE | 2018-09-24 09:22 | Consultation-Cardiology ---
HPI-Cardiology Cardiology Consultation Date of Consultation 09/24/18 Date of Admission Time Seen by Provider: 09:17 Indication: change in mental status HPI 77-year-old lady with history of coronary artery disease, was having twitching in her arms and involuntary movement for the past couple of days then she had seizure activity and became unresponsive, sent from the [facility] to [facility] emergency room and was given Ativan. Since then she has been sleeping, she moaned in bed, does not respond to verbal stimuli. Was unable to provide any history, history was obtained by reviewing her record. No reported history of chest pain Home Medications & Allergies Allergies: Coded Allergies: NKANo Known Allergies (Verified Allergy, Unknown, 07/15/18) Home Medication List Reviewed: Yes BAB-Mzvdiv-Ogircx Hx Patient Social History Employed/Student: retired Alcohol Use: Denies Use Recreational Drug Use: No Smoking Status: Current Everyday Smoker Type Used: Cigarettes 2nd Hand Smoke Exposure: No Recent Foreign Travel: No Recent Infectious Disease Expo: No Recent Hopitalizations: No Immunizations Up To Date Tetanus Booster (TDap): Unknown Date of Pneumonia Vaccine: Jun 02, 2011 Date of Influenza Vaccine: Apr 11, 2018 Past Medical History past medical history as described below Family Medical History Significant Family History: No Pertinent Family Hx Family History: FH: suicide FH: uterine cancer 19 MOTHER FHx: diabetes mellitus 19 MOTHER Review of Systems Constitutional: other (unable to provide any review of systems) Reviewed Test Results Reviewed Test Results Lab Laboratory Tests Test 09/24/18 02:25 09/24/18 02:35 09/24/18 06:10 Range/Units White Blood Count 7.0 4.3-11.0 10^3/uL Red Blood Count 3.58 L 4.35-5.85 10^6/uL Hemoglobin 9.4 L 11.5-16.0 G/DL Hematocrit 30 L 35-52 % Mean Corpuscular Volume 82 80-99 FL Mean Corpuscular Hemoglobin 26 25-34 PG Mean Corpuscular Hemoglobin Concent 32 32-36 G/DL Red Cell Distribution Width 18.7 H 10.0-14.5 % Platelet Count 222 130-400 10^3/uL Mean Platelet Volume 10.2 7.4-10.4 FL Neutrophils (%) (Auto) 72 42-75 % Lymphocytes (%) (Auto) 14 12-44 % Monocytes (%) (Auto) 11 0-12 % Eosinophils (%) (Auto) 2 0-10 % Basophils (%) (Auto) 0 0-10 % Neutrophils # (Auto) 5.1 1.8-7.8 X 10^3 Lymphocytes # (Auto) 1.0 1.0-4.0 X 10^3 Monocytes # (Auto) 0.8 0.0-1.0 X 10^3 Eosinophils # (Auto) 0.2 0.0-0.3 10^3/uL Basophils # (Auto) 0.0 0.0-0.1 10^3/uL Prothrombin Time 15.0 H 12.2-14.7 SEC INR Comment 1.1 0.8-1.4 Activated Partial Thromboplast Time 31 24-35 SEC Sodium Level 131 L 135-145 MMOL/L Potassium Level 3.4 L 3.6-5.0 MMOL/L Chloride Level 91 L 98-107 MMOL/L Carbon Dioxide Level 24 21-32 MMOL/L Anion Gap 16 H 5-14 MMOL/L Blood Urea Nitrogen 77 H 7-18 MG/DL Creatinine 2.87 H 0.60-1.30 MG/DL Estimat Glomerular Filtration Rate 16 BUN/Creatinine Ratio 27 Glucose Level 121 H 70-105 MG/DL Lactic Acid Level 1.55 0.50-2.00 MMOL/L Calcium Level 9.2 8.5-10.1 MG/DL Corrected Calcium 9.4 8.5-10.1 MG/DL Magnesium Level 2.2 1.8-2.4 MG/DL Total Bilirubin 0.4 0.1-1.0 MG/DL Aspartate Amino Transf (AST/SGOT) 16 5-34 U/L Alanine Aminotransferase (ALT/SGPT) 9 0-55 U/L Alkaline Phosphatase 93 40-136 U/L Troponin I 0.053 H <0.028 NG/ML B-Type Natriuretic Peptide 2319.3 H <100.0 PG/ML Total Protein 8.0 6.4-8.2 GM/DL Albumin 3.7 3.2-4.5 GM/DL TSH Snook Testing 1.66 0.35-4.94 UIU/ML Urine Color YELLOW Urine Clarity SLIGHTLY CLOUDY Urine pH 6 5-9 Urine Specific Bishop 1.010 L 1.016-1.022 Urine Protein 3+ H NEGATIVE Urine Glucose (UA) NEGATIVE NEGATIVE Urine Ketones NEGATIVE NEGATIVE Urine Nitrite NEGATIVE NEGATIVE Urine Bilirubin NEGATIVE NEGATIVE Urine Urobilinogen NORMAL NORMAL MG/DL Urine Leukocyte Esterase 3+ H NEGATIVE Urine RBC (Auto) 3+ H NEGATIVE Urine RBC 25-50 H /HPF Urine WBC 50-100 H /HPF Urine Crystals NONE /LPF Urine Bacteria FEW H /HPF Urine Casts NONE /LPF Urine Mucus NEGATIVE /LPF Urine Culture Indicated YES Blood Gas Puncture Site RT RAD Blood Gas Patient Temperature 97.8 Arterial Blood pH 7.37 7.37-7.43 Arterial Blood Partial Pressure CO2 51 H 35-45 MMHG Arterial Blood Partial Pressure O2 86 79-93 MMHG Arterial Blood HCO3 29 H 23-27 MMOL/L Arterial Blood Total CO2 30.5 21.0-31.0 MMOL/L Arterial Blood Oxygen Saturation 97 94-100 % Arterial Blood Base Excess 3.9 H -2.5-2.5 MMOL/L Benny Test RT RAD Blood Gas Ventilator Setting NO Blood Gas Inspired Oxygen NC @ 2L Physical Exam Vital Signs Vital Signs - First Documented 09/24/18 09/24/18 02:25 04:05 Temp 96.3 Pulse 68 Resp 13 B/P (MAP) 119/71 (87) Pulse Ox 94 O2 Delivery Room Air O2 Flow Rate 2.00 Capillary Refill : Less Than 3 Seconds Height, Weight, BMI Height: 5'7.00" Weight: 172lbs. 0.0oz. 78.689918ep; 26.9 BMI Method:Stated General Appearance: WD/WN, Moderate Distress Eyes: Bilateral Eye Normal Inspection, Bilateral Eye PERRL, Bilateral Eye EOMI HEENT: TMs Normal, Normal ENT Inspection Neck: Normal Inspection, Carotid Bruit Respiratory: Chest Non Tender, Normal Breath Sounds, No Accessory Muscle Use, No Respiratory Distress, Crackles Cardiovascular: Regular Rate, Rhythm, No Gallop, No JVD, Normal Peripheral Pulses, Systolic Murmur Gastrointestinal: Normal Bowel Sounds, No Organomegaly, No Pulsatile Mass Back: Normal Inspection Extremity: Normal Capillary Refill, Normal Inspection, Pedal Edema Neurologic/Psychiatric: Normal Mood/Affect, Other (sleeping, moaning in bed. Unable to follow command) Skin: Normal Color, Warm/Dry Lymphatic: No Adenopathy A/P-Cardiology Admission Diagnosis Seizure Acute change in mental status Coronary artery disease Acute renal failure Assessment/Plan Acute change in mental status, post ictal, status post seizure, received Prior and Ativan. Managed by barrel lathe operator outside. Metabolic acidosis, acute renal failure. 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 The procedure showed severe proximal LAD disease, proximal occlusion of the ramus intermedius and moderately to severe long stenosis in the proximal portion of the circumflex artery, patent stents in the proximal and distal right coronary artery that is known to have 3 stents Taxus, moderately to severe stenosis in a small caliber PDA from the RCA, occlusion of the vein graft to the right ramus intermedius underwent balloon angioplasty using 2.012 mm stent at the site of insertion of the graft to the ramus intermedius then Alpine 3 x 38 stent in the proximal and midportion of the graft, patent HUFF to LAD, ejection fraction 50 percent, had another angioplasty in October 2017 for occlusion of the vein graft to the ramus intermedius, was transferred in (most recent cardiac cath ) June 2018 to [place] after having myocardial infarction and reported that she had 2 stents placed while she was in the hospital - we have not been able to obtain this report despite multiple requests Ischemic cardiomyopathy. Most recent echocardiogram on 08/09/18: LVEF 35%, conc LVH, mild LA enlargement, mod MR, mod to severe TR, PASP 25 mmHg, L pleural eff , continue to monitor at this time Diabetes mellitus, followed and managed by primary care physician Peripheral neuropathy, probably diabetic, continue to monitor Bilateral leg swelling with discomfort, and chronic leg weakness Clinical Quality Measures DVT/VTE Risk/Contraindication: Risk Factor Score Per Nursin RFS Level Per Nursing on Admit: 4+=Very High ODILIA AGUAYO MD Sep 24, 2018 09:22
[2018-09-24] MEDS: LEVETIRACETAM INJECTION 500 MG in NS (IVPB) 100 ML IV SCH ×2 (09:35→21:00)
[2018-09-24] MEDS: ASPIRIN E.C. 81 MG (ECOTRIN) TAB PO SCH (11:25)
--- NOTE | 2018-09-24 12:16 | History & Physical-Hospitalist ---
History of Present Illness HPI/Chief Complaint CC: Seizure with influenza HPI: This is a 77-year-old white female of Dr. Shultz with multiple hospital stays and severe debility with COPD and smoking who presents to the ER following a seizure was diagnosed with influenza and requiring ICU monitoring due to such significant and severe comorbidities. Patient was given Ativan in the ER to abort the seizure the patient remains very sedated and drowsy and doesn't eat have a rattle upper respiratory coarseness. She still remains full CODE STATUS so will try to reach out to the family but they may want to proceed on with short-term ventilation if that should occur if she goes in the respiratory failure or cardiac arrest but the outcome is considered to be very poor. Source: RN/MD Exam Limitations: clinical condition Date Seen 09/24/18 Time Seen by a Provider: 12:30 Attending Physician Christine Coto DO PCP Ismael Shultz DO Referring Physician Date of Admission Sep 24, 2018 at 04:00 Home Medications & Allergies Home Medications Reviewed patient Home Medication Reconciliation performed by pharmacy medication reconciliations pest control service technician and/or nursing. Patients Allergies have been reviewed. Allergies Allergies Coded Allergies NKANo Known Allergies (Verified Allergy, Unknown, 07/15/18) Past Swyqakt-Itixku-Fofyyx Hx Past Med/Social Hx: Reviewed Nursing Past Med/Soc Hx, Reviewed and Corrections made Patient Social History Employed/Student: retired Alcohol Use: Denies Use Recreational Drug Use: No Smoking Status: Current Everyday Smoker Type Used: Cigarettes 2nd Hand Smoke Exposure: No Recent Foreign Travel: No Contact w/other who traveled: No Recent Hopitalizations: No Recent Infectious Disease Expo: No Immunizations Up To Date Tetanus Booster (TDap): Unknown Pediatric: No Date of Pneumonia Vaccine: Jun 02, 2011 Date of Influenza Vaccine: Apr 11, 2018 Seasonal Allergies Seasonal Allergies: No Past Medical History Surgeries: Appendectomy, Cardiac, CABG, Section, Coronary Stent, Hysterectomy, Oophorectomy, Orthopedic Respiratory: COPD Currently Using CPAP: No Currently Using BIPAP: No Cardiac: Coronary Artery Disease, Heart Attack, High Cholesterol, Hypertension , Irregular Heartbeat Neurological: Neuropathy, Seizure Disorder, TIA : No Reproductive: No Sexually Transmitted Disease: No HIV/AIDS: No Female Reproductive Disorders: Denies Hysterectomy, Menopausal Genitourinary: Renal Failure Gastrointestinal: Gastroesophageal Reflux, Ulcer Musculoskeletal: Osteoporosis, Arthritis, Chronic Back Pain Endocrine: Diabetes, Insulin dep HEENT: Cataract Loss of Vision: Denies Hearing Impairment: Denies Psychosocial: Anxiety, Depression History of Blood Disorders: No Adverse Reaction to Blood Broussard: No Family History FH: suicide FH: uterine cancer 19 MOTHER FHx: diabetes mellitus 19 MOTHER No Pertinent Family Hx Review of Systems Constitutional: see HPI Physical Exam Physical Exam Vital Signs Vital Signs - First Documented 09/24/18 09/24/18 02:25 04:05 Temp 96.3 Pulse 68 Resp 13 B/P (MAP) 119/71 (87) Pulse Ox 94 O2 Delivery Room Air O2 Flow Rate 2.00 Capillary Refill : Less Than 3 Seconds Height, Weight, BMI Height: 5'7.00" Weight: 172lbs. 0.0oz. 78.997028fz; 26.9 BMI Method:Stated General Appearance: No Apparent Distress, WD/WN, Chronically ill, Other ( sedated) Neck: Full Range of Motion Respiratory: No Accessory Muscle Use, No Respiratory Distress, Crackles, Decreased Breath Sounds, Wheezing Cardiovascular: Regular Rate, Rhythm, No Edema Neurologic/Psychiatric: Other (sedated) Results Results/Procedures Labs Laboratory Tests 09/24/18 02:25 Patient resulted labs reviewed. Assessment/Plan Admission Diagnosis Assessment: Seizure Influenza Chronic systolic/diastolic congestive heart failure. COPD Coronary artery disease Hypertension Hyperlipidemia Weakness Diabetes Smoker Plan: ICU monitoring Patient appears end stage status considering multiple hospital stays and severe chronic debility Admission Status: Inpatient Order (span 2 midnights) Reason for Inpatient Admission: Severe debility with comorbidities and now seizure an influenza will order 4 days of hospital Diagnosis/Problems Diagnosis/Problems (1) Seizure-like activity Status: Acute (2) Influenza B Status: Acute (3) Elevated troponin Status: Acute (4) Chronic renal failure Status: Acute Qualifiers: Chronic kidney disease stage: stage 3 (moderate) Qualified Codes: N18.3 - Chronic kidney disease, stage 3 (moderate) (5) Altered mental status Status: Acute Qualifiers: Altered mental status type: unspecified Qualified Codes: R41.82 - Altered mental status, unspecified (6) Electrolyte imbalance Status: Acute (7) CHF (congestive heart failure) Status: Chronic Qualifiers: Heart failure type: combined systolic and diastolic Heart failure chronicity: unspecified Qualified Codes: I50.40 - Unspecified combined systolic (congestive) and diastolic (congestive) heart failure (8) COPD (chronic obstructive pulmonary disease) Status: Acute Qualifiers: COPD type: unspecified COPD Qualified Codes: J44.9 - Chronic obstructive pulmonary disease, unspecified (9) CAD (coronary artery disease) Status: Chronic Qualifiers: Coronary Disease-Associated Artery/Lesion type: [place] artery [place] vs. transplanted heart: [place] heart Associated angina: without angina Qualified Codes: I25.10 - Atherosclerotic heart disease of [place] coronary artery without angina pectoris (10) Neuropathy Status: Chronic (11) Dementia Status: Chronic Qualifiers: Dementia type: Alzheimer's disease (12) Anemia Status: Chronic Qualifiers: Anemia type: unspecified type Qualified Codes: D64.9 - Anemia, unspecified (13) Insulin dependent diabetes mellitus Status: Chronic Clinical Quality Measures DVT/VTE Risk/Contraindication: Risk Factor Score Per Nursin RFS Level Per Nursing on Admit: 4+=Very High CHRISTINE COTO DO Sep 24, 2018 12:16
[2018-09-25] VITALS (12 sets, daily range): BP systolic 114–145; BP diastolic 56–78
[2018-09-25] MEDS: cefTRIAXone 1,000 MG/SWFI 10 ML IV PUSH IV SCH ×2 (03:00)
[2018-09-25 03:44] LABS: BASOPHILS % (AUTO) 0 % (0-10); EOSINOPHILS % (AUTO) 0 % (0-10); HEMATOCRIT 32 % (35-52); HEMOGLOBIN 10.3 G/DL (11.5-16.0); LYMPHOCYTES # (AUTO) 0.5 X 10^3 (1.0-4.0); LYMPHOCYTES % (AUTO) 4 % (12-44); MEAN CORPUSCULAR HEMOGLOBIN 27 PG (25-34); MEAN CORPUSCULAR HGB CONC 33 G/DL (32-36); MEAN CORPUSCULAR VOLUME 83 FL (80-99); MEAN PLATELET VOLUME 10.4 FL (7.4-10.4); MONOCYTES # (AUTO) 0.7 X 10^3 (0.0-1.0); MONOCYTES % (AUTO) 5 % (0-12); NEUTROPHILS # (AUTO) 11.6 X 10^3 (1.8-7.8); NEUTROPHILS % (AUTO) 90 % (42-75); PLATELET COUNT 263 10^3/uL (130-400); RED CELL DISTRIBUTION WIDTH 19.4 % (10.0-14.5); WHITE BLOOD COUNT 12.8 10^3/uL (4.3-11.0)
[2018-09-25 04:15] LABS: CALCIUM 9.5 MG/DL (8.5-10.1); CREATININE SERUM 2.66 MG/DL (0.60-1.30); MAGNESIUM 2.3 MG/DL (1.8-2.4); POTASSIUM 4.1 MMOL/L (3.6-5.0)
[2018-09-25 04:20] LABS: ANISOCYTOSIS MODERATE; BAND NEUTROPHILS 1 %; BASOPHILS % (MANUAL) 0 %; EOSINOPHILS % (MANUAL) 0 %; HYPOCHROMASIA SLIGHT; LYMPHOCYTES % (MANUAL) 2 %; MONOCYTES % (MANUAL) 6 %; NEUTROPHILS % (MANUAL) 91 %; POIKILOCYTOSIS SLIGHT
[2018-09-25 04:21] LABS: ROULEAUX SLIGHT; TARGET CELLS SLIGHT
--- NOTE | 2018-09-25 05:43 | Pulmonary Progress Note ---
Subjective Time Seen by a Provider: 05:41 Subjective/Events-last exam PT is still very lethargic. Sepsis Event Evaluation Height, Weight, BMI Height: 5'7.00" Weight: 172lbs. 0.0oz. 78.586381ww; 26.9 BMI Method:Stated Focused Exam Lactate Level 09/24/18 02:25: Lactic Acid Level 1.55 Exam Exam Vital Signs Date Time Temp Pulse Resp B/P (MAP) Pulse Ox O2 Delivery O2 Flow Rate FiO2 09/25/18 05:00 82 18 134/56 (82) 91 Nasal Cannula 2.00 09/25/18 04:00 93 2.00 09/25/18 04:00 89 14 141/74 (96) 95 Nasal Cannula 2.00 09/25/18 04:00 98.3 09/25/18 03:00 85 19 131/58 (82) 96 Nasal Cannula 2.00 09/25/18 02:00 87 16 141/70 (93) 96 Nasal Cannula 2.00 09/25/18 01:00 87 16 127/61 (83) 95 Nasal Cannula 2.00 09/25/18 01:00 88 09/25/18 00:00 87 17 133/62 (85) 94 Nasal Cannula 2.00 09/25/18 00:00 93 2.00 09/25/18 00:00 97.9 09/24/18 23:00 87 16 139/64 (89) 95 Nasal Cannula 2.00 09/24/18 22:00 86 17 136/65 (88) 94 Nasal Cannula 2.00 09/24/18 21:00 86 19 133/65 (87) 96 Nasal Cannula 2.00 09/24/18 20:57 Nasal Cannula 2.00 09/24/18 20:00 93 2.00 09/24/18 20:00 88 23 144/71 (95) 96 Nasal Cannula 2.00 09/24/18 19:00 85 17 135/64 (87) 96 Nasal Cannula 2.00 09/24/18 19:00 87 09/24/18 18:00 84 23 137/64 (88) 94 Nasal Cannula 2.00 09/24/18 17:00 84 23 147/69 (95) 95 Nasal Cannula 2.00 09/24/18 16:00 82 18 146/93 (110) 94 Nasal Cannula 2.00 09/24/18 16:00 93 2.00 09/24/18 16:00 97.4 09/24/18 15:00 80 19 148/70 (96) 93 Nasal Cannula 2.00 09/24/18 14:00 78 19 146/73 (97) 92 Nasal Cannula 2.00 09/24/18 13:00 77 09/24/18 13:00 75 17 144/70 (94) 95 Nasal Cannula 2.00 09/24/18 12:00 74 15 141/69 (93) 98 Nasal Cannula 2.00 09/24/18 12:00 93 2.00 09/24/18 11:00 73 16 136/68 (90) 98 Nasal Cannula 2.00 09/24/18 10:00 73 135/71 (92) Nasal Cannula 2.00 09/24/18 09:00 71 106/56 (73) Nasal Cannula 2.00 09/24/18 08:00 93 2.00 09/24/18 08:00 74 123/56 (78) Nasal Cannula 2.00 09/24/18 07:04 99 Nasal Cannula 2.00 09/24/18 07:00 73 124/58 (80) Nasal Cannula 2.00 09/24/18 07:00 73 09/24/18 06:00 72 14 107/55 (72) 97 Nasal Cannula 2.00 09/24/18 05:45 73 15 119/53 (75) 99 Nasal Cannula 2.00 I & O 09/25/18 07:00 Intake Total 400 ml Output Total 1750 ml Balance -1350 ml Height & Weight Height: 5'7.00" Weight: 172lbs. 0.0oz. 78.184629zg; 26.9 BMI Method:Stated General Appearance: No Apparent Distress, WD/WN, Chronically ill, Other ( sedated) HEENT: TMs Normal, Normal ENT Inspection Neck: Full Range of Motion Respiratory: No Accessory Muscle Use, No Respiratory Distress, Crackles, Decreased Breath Sounds, Wheezing Cardiovascular: Regular Rate, Rhythm, No Edema Capillary Refill: Less Than 3 Seconds Extremity: Normal Capillary Refill, Normal Inspection, Pedal Edema Neurologic/Psychiatric: Other (sedated) Skin: Normal Color, Warm/Dry Lymphatic: No Adenopathy Results Lab Laboratory Tests 09/24/18 02:25 09/25/18 03:20 Assessment/Plan Assessment/Plan Acute seizures/ Metabolic encephalopathy -- Pt does have hx of seizures -Monitor -Keppra COPDAE with Influenza B -Tamiflu CAD with CHF- systoic/diastolic 08/09/18 EF 35 % -Cardiology consulted -Monitor NSTEMI -Cardiology consulted -EKG -trend serial troponins Acute on chronic renal failure stage 4 -Will start D5LR KAMRYN GREENE DO Sep 25, 2018 05:42
[2018-09-25] MEDS ORDERED: POTASSIUM CL 10MEQ/50ML IVPB 50 ML IV SCH (06:00)
[2018-09-25] MEDS ORDERED: KCL 20 MEQ TAB (K-DUR) PO SCH (06:00)
[2018-09-25] MEDS ORDERED: MAGNESIUM 1 GM/100 ML IVPB 100 ML IV SCH (06:00)
[2018-09-25] MEDS: D5 LR IV SOLUTION 1,000 ML IV SCH (07:30)
[2018-09-25] MEDS ORDERED: AZITHROMYCIN 250 MG TAB (ZITHROMAX) PO SCH (09:00)
--- NOTE | 2018-09-25 09:26 | Cardiology Progress Note ---
Subjective Date Seen by Provider: Sep 25, 2018 Time Seen by Provider: 09:23 Subjective/Events-last exam patient is laying down in bed, moving slightly with stimulation, not opening her eyes are responding appropriately Review of Systems General: Other (unable to provide review of systems at this point) HEENT: No Head Aches, No Visual Changes, No Eye Pain, No Ear Pain, No Dysphasia , No Sinus Congestion, No Post Nasal Drip, No Sore Throat, No Other Focused Exam Lactate Level 09/24/18 02:25: Lactic Acid Level 1.55 Objective-Cardiology Exam Last Set of Vital Signs Vital Signs 09/25/18 09/25/18 04:00 08:00 Temp 98.3 Pulse 84 Resp 16 B/P (MAP) 114/63 (80) Pulse Ox 95 O2 Delivery Nasal Cannula O2 Flow Rate 2.00 Capillary Refill : Less Than 3 Seconds I&O Intake and Output 09/25/18 00:00 Intake Total 410 ml Output Total 1950 ml Balance -1540 ml Intake Oral 0 ml IV Total 410 ml Output Urine Total 1950 ml Daily Weight Change No General: Moderate Distress, Other (not responding or following commands) HEENT: Atraumatic Neck: Supple, No JVD Lungs: Clear to Auscultation, Normal Air Movement Heart: Regular Rate, Normal S1, Normal S2 Abdomen: Normal Bowel Sounds, No Tenderness Extremities: No Clubbing, No Cyanosis Skin: No Rashes Neuro: Other (Not responding) Results Lab Laboratory Tests 09/25/18 03:20 A/P-Cardiology Admission Diagnosis Seizure Acute change in mental status Coronary artery disease Acute renal failure Assessment/Plan Acute change in mental status, status post seizure, still not arousable or responding appropriately. Managed by mechanical system technician Metabolic acidosis, acute renal failure. Continue on IV fluid and monitor renal function Influenzae B, started on Tamiflu, didn't receive any doses yet Acute on chronic systolic/diastolic congestive heart failure, elevated BNP, currently laying down in bed comfortably, monitor closely Acute on chronic renal failure, chronic kidney disease stage IV, continue IV fluid and monitor Coronary artery disease, history of CABG, had previous [place] in September 2017 underwent angioplasty to the vein graft to the ramus intermedius. The procedure showed severe proximal LAD disease, proximal occlusion of the ramus intermedius and moderately to severe long stenosis in the proximal portion of the circumflex artery, patent stents in the proximal and distal right coronary artery that is known to have 3 stents Taxus, moderately to severe stenosis in a small caliber PDA from the RCA, occlusion of the vein graft to the right ramus intermedius underwent balloon angioplasty using 2.012 mm stent at the site of insertion of the graft to the ramus intermedius then Alpine 3 x 38 stent in the proximal and midportion of the graft, patent HUFF to LAD, ejection fraction 50 percent, had another angioplasty in October 2017 for occlusion of the vein graft to the ramus intermedius, was transferred in (most recent cardiac cath ) June 2018 to [place] after having myocardial infarction and reported that she had 2 stents placed while she was in the hospital - we have not been able to obtain this report despite multiple requests Ischemic cardiomyopathy. Most recent echocardiogram on 08/09/18: LVEF 35%, conc LVH, mild LA enlargement, mod MR, mod to severe TR, PASP 25 mmHg, L pleural eff , continue to monitor at this time Diabetes mellitus, followed and managed by primary care physician Peripheral neuropathy, probably diabetic, continue to monitor Bilateral leg swelling with discomfort, and chronic leg weakness Clinical Quality Measures DVT/VTE Risk/Contraindication: Risk Factor Score Per Nursin RFS Level Per Nursing on Admit: 4+=Very High ODILIA AGUAYO MD Sep 25, 2018 09:26
[2018-09-25] MEDS: LEVETIRACETAM INJECTION 500 MG in NS (IVPB) 100 ML IV SCH ×2 (10:38→22:38)
[2018-09-25] MEDS: OSELTAMIVIR 30 MG (TAMIFLU) CAPSULE PO SCH (10:45)
[2018-09-25] MEDS: ASPIRIN E.C. 81 MG (ECOTRIN) TAB PO SCH (10:45)
--- NOTE | 2018-09-25 10:45 | NUR ---
Pt to room 429. Report received from KELLY Soria. Agree with previous wheel mill operator. pt not alert, only responsive to pain.
--- NOTE | 2018-09-25 10:57 | Diagnostic Imaging Report ---
INDICATION: Confusion, shortness of breath, urinary tract infection, CHF. COMPARISON: 09/24/2018 FINDINGS: Single view of the chest demonstrates cardiac enlargement with central vascular congestion. There is increasing effusion and atelectasis in the left base. Trace effusion remains in the right costophrenic angle. Sternal wires are midline. There is no pneumothorax. IMPRESSION: 1. Cardiac enlargement with stable central vascular congestion. 2. Increasing effusion and atelectasis left base. Stable trace effusion right base. Dictated by: Dictated on workstation # [id number]
--- NOTE | 2018-09-25 11:32 | Progress Note-Hospitalist ---
Subjective HPI/CC On Admission Date Seen by Provider: Sep 25, 2018 Time Seen by Provider: 12:00 CC: Seizure with influenza HPI: This is a 77-year-old white female of Dr. Shultz with multiple hospital stays and severe debility with COPD and smoking who presents to the ER following a seizure was diagnosed with influenza and requiring ICU monitoring due to such significant and severe comorbidities. Patient was given Ativan in the ER to abort the seizure the patient remains very sedated and drowsy and doesn't eat have a rattle upper respiratory coarseness. She still remains full CODE STATUS so will try to reach out to the family but they may want to proceed on with short-term ventilation if that should occur if she goes in the respiratory failure or cardiac arrest but the outcome is considered to be very poor. Subjective/Events-last exam Patient sedated Unsure if she is can recover Long-standing illnesses and comorbidities preclude anything other than a poor prognosis Daughter will be in today from [place] Maintain DO NOT RESUSCITATE status Review of Systems General: Fatigue Focused Exam Lactate Level 09/24/18 02:25: Lactic Acid Level 1.55 Objective Exam Vital Signs Vital Signs Date Time Temp Pulse Resp B/P (MAP) Pulse Ox O2 Delivery O2 Flow Rate FiO2 09/25/18 08:00 96 2.00 09/25/18 08:00 84 16 114/63 (80) Nasal Cannula 09/25/18 04:00 98.3 Capillary Refill : Less Than 3 Seconds General Appearance: No Apparent Distress, WD/WN, Chronically ill, Other ( sedated) HEENT: TMs Normal, Normal ENT Inspection Neck: Full Range of Motion Respiratory: No Accessory Muscle Use, No Respiratory Distress, Crackles, Decreased Breath Sounds, Wheezing Cardiovascular: Regular Rate, Rhythm, No Edema Gastrointestinal: Normal Bowel Sounds, No Organomegaly, No Pulsatile Mass Back: Normal Inspection Extremity: Normal Capillary Refill, Normal Inspection, Pedal Edema Neurologic/Psychiatric: Other (sedated) Skin: Normal Color, Warm/Dry Lymphatic: No Adenopathy Results/Procedures Lab Laboratory Tests 09/25/18 03:20 Patient resulted labs reviewed. Assessment/Plan Assessment and Plan Assess & Plan/Chief Complaint Assessment: Seizure Influenza Chronic systolic/diastolic congestive heart failure. COPD Coronary artery disease Hypertension Hyperlipidemia Weakness Diabetes Smoker Plan: Transfer to [facility] DNR Patient appears end stage status considering multiple hospital stays and severe chronic debility Diagnosis/Problems Diagnosis/Problems (1) Seizure-like activity Status: Acute (2) Influenza B Status: Acute (3) Elevated troponin Status: Acute (4) Chronic renal failure Status: Acute Qualifiers: Chronic kidney disease stage: stage 3 (moderate) Qualified Codes: N18.3 - Chronic kidney disease, stage 3 (moderate) (5) Altered mental status Status: Acute Qualifiers: Altered mental status type: unspecified Qualified Codes: R41.82 - Altered mental status, unspecified (6) Electrolyte imbalance Status: Acute (7) CHF (congestive heart failure) Status: Chronic Qualifiers: Heart failure type: combined systolic and diastolic Heart failure chronicity: unspecified Qualified Codes: I50.40 - Unspecified combined systolic (congestive) and diastolic (congestive) heart failure (8) COPD (chronic obstructive pulmonary disease) Status: Acute Qualifiers: COPD type: unspecified COPD Qualified Codes: J44.9 - Chronic obstructive pulmonary disease, unspecified (9) CAD (coronary artery disease) Status: Chronic Qualifiers: Coronary Disease-Associated Artery/Lesion type: three affiliated artery [place] vs. transplanted heart: three affiliated heart Associated angina: without angina Qualified Codes: I25.10 - Atherosclerotic heart disease of three affiliated coronary artery without angina pectoris (10) Neuropathy Status: Chronic (11) Dementia Status: Chronic Qualifiers: Dementia type: Alzheimer's disease (12) Anemia Status: Chronic Qualifiers: Anemia type: unspecified type Qualified Codes: D64.9 - Anemia, unspecified (13) Insulin dependent diabetes mellitus Status: Chronic Clinical Quality Measures DVT/VTE Risk/Contraindication: Risk Factor Score Per Nursin RFS Level Per Nursing on Admit: 4+=Very High EZEKIEL CHOUDHARY DO Sep 25, 2018 11:32
[2018-09-25] MEDS: inSUlin ASPART (NovoLOG) 1 UNIT/0.01 ML (CHARGE PER UNIT) SC SCH ×2 (16:24→22:42)
[2018-09-26] VITALS: BP 115/67
[2018-09-26] MEDS ORDERED: cefTRIAXone 1,000 MG IV (ROCEPHIN) VIAL ONE (03:04)
[2018-09-26] MEDS ORDERED: WATER (STERILE) FOR INJECTION 10 ML ONE (03:04)
[2018-09-26] MEDS: cefTRIAXone 1,000 MG/SWFI 10 ML IV PUSH IV SCH ×2 (03:11)
[2018-09-26] MEDS: D5 LR IV SOLUTION 1,000 ML IV SCH ×2 (03:12→20:37)
[2018-09-26 04:50] VITALS: BP 137/77
[2018-09-26 05:02] LABS: BASOPHILS % (AUTO) 0 % (0-10); EOSINOPHILS % (AUTO) 0 % (0-10); HEMATOCRIT 29 % (35-52); HEMOGLOBIN 9.2 G/DL (11.5-16.0); LYMPHOCYTES # (AUTO) 0.7 X 10^3 (1.0-4.0); LYMPHOCYTES % (AUTO) 9 % (12-44); MEAN CORPUSCULAR HEMOGLOBIN 26 PG (25-34); MEAN CORPUSCULAR HGB CONC 31 G/DL (32-36); MEAN CORPUSCULAR VOLUME 84 FL (80-99); MEAN PLATELET VOLUME 10.4 FL (7.4-10.4); MONOCYTES # (AUTO) 0.8 X 10^3 (0.0-1.0); MONOCYTES % (AUTO) 10 % (0-12); NEUTROPHILS # (AUTO) 6.6 X 10^3 (1.8-7.8); NEUTROPHILS % (AUTO) 81 % (42-75); PLATELET COUNT 245 10^3/uL (130-400); RED CELL DISTRIBUTION WIDTH 19.5 % (10.0-14.5); WHITE BLOOD COUNT 8.2 10^3/uL (4.3-11.0)
[2018-09-26] MEDS: inSUlin ASPART (NovoLOG) 1 UNIT/0.01 ML (CHARGE PER UNIT) SC SCH ×4 (05:23→21:00)
[2018-09-26 05:25] LABS: CALCIUM 9.5 MG/DL (8.5-10.1); CREATININE SERUM 2.37 MG/DL (0.60-1.30); MAGNESIUM 2.1 MG/DL (1.8-2.4); PHOSPHORUS 4.5 MG/DL (2.3-4.7); POTASSIUM 3.3 MMOL/L (3.6-5.0)
[2018-09-26] MEDS ORDERED: FUROSEMIDE 40 MG/4 ML INJ (LASIX) IVP ONE (06:45)
--- NOTE | 2018-09-26 06:50 | Pulmonary Progress Note ---
Subjective Time Seen by a Provider: 06:45 Subjective/Events-last exam CXR shows increased effusion. UA shows pseudomonus Sepsis Event Evaluation Height, Weight, BMI Height: 5'7.00" Weight: 172lbs. 7.0oz. 78.265786hn; 26.9 BMI Method:Stated Focused Exam Lactate Level 09/24/18 02:25: Lactic Acid Level 1.55 Exam Exam Vital Signs Date Time Temp Pulse Resp B/P (MAP) Pulse Ox O2 Delivery O2 Flow Rate FiO2 09/26/18 04:50 98.5 100 24 137/77 (97) 97 Nasal Cannula 2.00 09/26/18 01:00 88 09/26/18 00:00 98.0 80 20 115/67 (83) 96 Nasal Cannula 2.00 09/25/18 20:32 Nasal Cannula 2.00 09/25/18 20:00 2.00 09/25/18 20:00 98.7 85 18 134/62 (86) 94 Nasal Cannula 2.00 09/25/18 19:00 81 09/25/18 16:01 97.8 89 18 145/74 (97) 96 Nasal Cannula 2.00 09/25/18 13:00 82 09/25/18 12:00 98.4 83 16 134/78 (96) 96 Nasal Cannula 2.00 09/25/18 08:00 96 2.00 09/25/18 08:00 84 16 114/63 (80) 95 Nasal Cannula 2.00 09/25/18 07:00 84 09/25/18 07:00 86 24 145/72 (96) 98 Nasal Cannula 2.00 I & O 09/26/18 07:00 Intake Total 1115 ml Output Total 1800 ml Balance -685 ml Height & Weight Height: 5'7.00" Weight: 172lbs. 7.0oz. 78.674842nm; 26.9 BMI Method:Stated General Appearance: No Apparent Distress, WD/WN, Chronically ill, Other ( sedated) HEENT: TMs Normal, Normal ENT Inspection Neck: Full Range of Motion Respiratory: No Accessory Muscle Use, No Respiratory Distress, Crackles, Decreased Breath Sounds, Wheezing Cardiovascular: Regular Rate, Rhythm, No Edema Capillary Refill: Less Than 3 Seconds Extremity: Normal Capillary Refill, Normal Inspection, Pedal Edema Neurologic/Psychiatric: Depressed Affect Skin: Normal Color, Warm/Dry Lymphatic: No Adenopathy Results Lab Laboratory Tests 09/25/18 03:20 09/26/18 04:30 Assessment/Plan Assessment/Plan Acute seizures/ Metabolic encephalopathy -- Pt does have hx of seizures -Monitor -Keppra COPDAE with Influenza B -Tamiflu UTI - with Pseudomonus -Change Abx to Zosyn Pleural effusion -Will give 40mg of Lasix x 1 CAD with CHF- systoic/diastolic 08/09/18 EF 35 % -Cardiology consulted -Monitor NSTEMI -Cardiology consulted -EKG -trend serial troponins Acute on chronic renal failure stage 4 KAMRYN GREENE DO Sep 26, 2018 06:50
[2018-09-26] MEDS ORDERED: PIPERACILLIN/TAZO 4.5 GM/NS 100 ML IV NR ×2 (07:52)
[2018-09-26 08:00] VITALS: BP 160/54
[2018-09-26] MEDS ORDERED: KCL 20 MEQ TAB (K-DUR) PO ONE (08:20)
[2018-09-26] MEDS: POTASSIUM CL 10MEQ/50ML IVPB 50 ML IV SCH ×6 (08:26→09:53)
--- NOTE | 2018-09-26 08:26 | Progress Note (SOAP) ---
Subjective Time Seen by a Provider: 08:22 Subjective/Events-last exam Patient opened eyes today. Pt says one or two words. AMS slightly better. UTI. Renal insufficiency- improved a little. Hypokalemia Focused Exam Lactate Level 09/24/18 02:25: Lactic Acid Level 1.55 Objective Exam Vital Signs Date Time Temp Pulse Resp B/P (MAP) Pulse Ox O2 Delivery O2 Flow Rate FiO2 09/26/18 07:00 94 09/26/18 04:50 98.5 100 24 137/77 (97) 97 Nasal Cannula 2.00 09/26/18 01:00 88 09/26/18 00:00 98.0 80 20 115/67 (83) 96 Nasal Cannula 2.00 09/25/18 20:32 Nasal Cannula 2.00 09/25/18 20:00 2.00 09/25/18 20:00 98.7 85 18 134/62 (86) 94 Nasal Cannula 2.00 09/25/18 19:00 81 09/25/18 16:01 97.8 89 18 145/74 (97) 96 Nasal Cannula 2.00 09/25/18 13:00 82 09/25/18 12:00 98.4 83 16 134/78 (96) 96 Nasal Cannula 2.00 I & O 09/26/18 07:00 Intake Total 1115 ml Output Total 1800 ml Balance -685 ml Capillary Refill : Less Than 3 Seconds General Appearance: No Apparent Distress Respiratory: No Accessory Muscle Use, No Respiratory Distress Cardiovascular: Regular Rate, Rhythm Gastrointestinal: non tender, soft Results Lab Laboratory Tests 09/26/18 04:30 Laboratory Tests 09/25/18 16:06: Glucometer 317H 09/25/18 20:50: Glucometer 258H 09/26/18 04:30: White Blood Count 8.2, Red Blood Count 3.51L, Hemoglobin 9.2L, Hematocrit 29L, Mean Corpuscular Volume 84, Mean Corpuscular Hemoglobin 26, Mean Corpuscular Hemoglobin Concent 31L, Red Cell Distribution Width 19.5H, Platelet Count 245, Mean Platelet Volume 10.4, Neutrophils (%) (Auto) 81H, Lymphocytes (%) (Auto) 9L , Monocytes (%) (Auto) 10, Eosinophils (%) (Auto) 0, Basophils (%) (Auto) 0, Neutrophils # (Auto) 6.6, Lymphocytes # (Auto) 0.7L, Monocytes # (Auto) 0.8, Eosinophils # (Auto) 0.0, Basophils # (Auto) 0.0, Sodium Level 139, Potassium Level 3.3L, Chloride Level 100, Carbon Dioxide Level 24, Anion Gap 15H, Blood Urea Nitrogen 71H, Creatinine 2.37H, Estimat Glomerular Filtration Rate 20, BUN/ Creatinine Ratio 30, Glucose Level 224H, Calcium Level 9.5, Phosphorus Level 4.5 , Magnesium Level 2.1 09/26/18 05:00: Glucometer 241H Microbiology 09/24/18 Blood Culture - Preliminary, Resulted No growth 09/24/18 MRSA Screen - Final, Complete MRSA not isolated 09/24/18 Urine Culture - Preliminary, Resulted Pseudomonas aeruginosa Assessment/Plan Assessment/Plan Assess & Plan/Chief Complaint Patient has history of nonreponsive with UTI. Urine cx pseudomonas. Antibiotic changed. Acute mental status change less. Influenza B Elevated troponin. Seizure like activity. Patient did open eyes today. Patient moved all extremities. Clinical Quality Measures DVT/VTE Risk/Contraindication: Risk Factor Score Per Nursin RFS Level Per Nursing on Admit: 4+=Very High MERRICK SIEGEL DO Sep 26, 2018 08:26
[2018-09-26] MEDS: OSELTAMIVIR 30 MG (TAMIFLU) CAPSULE PO SCH (08:56)
[2018-09-26] MEDS: ASPIRIN E.C. 81 MG (ECOTRIN) TAB PO SCH (08:56)
--- NOTE | 2018-09-26 09:25 | Progress Note-Cardiology ---
Cardiology SOAP Progress Note Subjective: Not able to provide any meaningful history Objective: I&O/Vital Signs 09/26/18 09/26/18 09/26/18 09/26/18 00:00 01:00 04:50 07:00 Temp 98.0 98.5 Pulse 80 88 100 94 Resp 20 24 B/P (MAP) 115/67 (83) 137/77 (97) Pulse Ox 96 97 O2 Delivery Nasal Cannula Nasal Cannula O2 Flow Rate 2.00 2.00 09/26/18 00:00 Intake Total 0 ml Output Total 1050 ml Balance -1050 ml Weight (Pounds): 172 Weight (Ounces): 7.0 Weight (Calculated Kilograms): 78.380462 Constitutional: No AAO x 3; well-developed, well-nourished, other (somewhat agitated) Respiratory: No accessory muscle use; other (fair to good bilat air entry, diminished at the bases) Cardiovascular: regular rate-rhythm, S1 and S2, systolic murmur (soft LELA at card base) Gastrointestional: No tender; soft; No guarding, No rebound; audible bowel sounds Extremities: No clubbing, No cyanosis, No significant edema Neurologic/Psychiatric: No oriented x 3; other (seems to move all limbs equally , unable to cooperate with a neuro exam) Skin: No rash on exposed areas, No ulcerations on exposed areas Results/Procedures: Labs Laboratory Tests 09/25/18 16:06: Glucometer 317H 09/25/18 20:50: Glucometer 258H 09/26/18 04:30: White Blood Count 8.2, Red Blood Count 3.51L, Hemoglobin 9.2L, Hematocrit 29L, Mean Corpuscular Volume 84, Mean Corpuscular Hemoglobin 26, Mean Corpuscular Hemoglobin Concent 31L, Red Cell Distribution Width 19.5H, Platelet Count 245, Mean Platelet Volume 10.4, Neutrophils (%) (Auto) 81H, Lymphocytes (%) (Auto) 9L , Monocytes (%) (Auto) 10, Eosinophils (%) (Auto) 0, Basophils (%) (Auto) 0, Neutrophils # (Auto) 6.6, Lymphocytes # (Auto) 0.7L, Monocytes # (Auto) 0.8, Eosinophils # (Auto) 0.0, Basophils # (Auto) 0.0, Sodium Level 139, Potassium Level 3.3L, Chloride Level 100, Carbon Dioxide Level 24, Anion Gap 15H, Blood Urea Nitrogen 71H, Creatinine 2.37H, Estimat Glomerular Filtration Rate 20, BUN/ Creatinine Ratio 30, Glucose Level 224H, Calcium Level 9.5, Phosphorus Level 4.5 , Magnesium Level 2.1 09/26/18 05:00: Glucometer 241H Microbiology 09/24/18 Blood Culture - Preliminary, Resulted No growth 09/24/18 MRSA Screen - Final, Complete MRSA not isolated 09/24/18 Urine Culture - Final, Complete Pseudomonas aeruginosa Laboratory Tests 09/25/18 03:20 09/26/18 04:30 A/P: Assessment: AMS, managed by the [facility] [place] UTI with probable urosepsis CKD 4 with probable STEPHANIE stage 1 Influenzae B, being treated by the [facility] Acute on chronic systolic/diastolic congestive heart failure, elevated BNP Coronary artery disease, history of CABG, had previous [facility] in September 2017 underwent angioplasty to the vein graft to the ramus intermedius. The procedure showed severe proximal LAD disease, proximal occlusion of the ramus intermedius and moderately to severe long stenosis in the proximal portion of the circumflex artery, patent stents in the proximal and distal right coronary artery that is known to have 3 stents, moderately to severe stenosis in a small caliber PDA from the RCA, occlusion of the vein graft to the right ramus intermedius (underwent balloon angioplasty using 2.012 mm stent at the site of insertion of the graft to the ramus intermedius then Alpine 3 x 38 stent in the proximal and midportion of the graft), patent HUFF to LAD, ejection fraction 50 percent; had another angioplasty in October 2017 for occlusion of the vein graft to the ramus intermedius, was transferred in June 2018 to [place] after having myocardial infarction and reported that she had 2 stents placed while she was in the hospital - we have not been able to obtain this report despite multiple requests Ischemic cardiomyopathy. Most recent echocardiogram on 08/09/18: LVEF 35%, conc LVH, mild LA enlargement, mod MR, mod to severe TR, PASP 25 mmHg, L pleural eff Diabetes mellitus, followed and managed by primary care physician Peripheral neuropathy, probably diabetic, continue to monitor Bilateral leg swelling with discomfort, and chronic leg weakness Plan: * Complex management due to multiple comorbidities that are outlined above * Continue previous card regimen * Replenish K * Monitor labs closely * I reviewed the records of this hospitalization DORA HASSAN MD FACP FACC CCDS Sep 26, 2018 09:25
[2018-09-26] MEDS ORDERED: CLOPIDOGREL 75 MG (PLAVIX) TABLET PO ONE (09:45)
[2018-09-26] MEDS: LEVETIRACETAM 500 MG/ 5 ML UDC ORAL SOLN (KEPPRA) PO SCH ×2 (09:49→20:36)
--- NOTE | 2018-09-26 10:20 | Diagnostic Imaging Report ---
INDICATION: Altered mental status, seizure activity, elevated troponin. TECHNIQUE: Single view chest at 3:20 AM. CORRELATION STUDY: 09/25/2018 FINDINGS: Poststernotomy changes. Cardiac enlargement. Vasculature is mildly prominent. The lungs are clear with no consolidating infiltrate. There is no significant effusion or pneumothorax. IMPRESSION: 1. Cardiac enlargement with vascular congestion, generally stable. 2. Overall improved aeration through the lungs, particularly left lung. This is likely largely attributed to decrease in size of left pleural effusion. Some consolidation and effusion, however, does remain. Dictated by: Dictated on workstation # [id number]
[2018-09-26] MEDS ORDERED: POTA20TA15 PO (12:25)
[2018-09-26] MEDS ORDERED: LIDO1ADH41 TD (12:25)
[2018-09-26] MEDS ORDERED: METO2.5T PO (12:25)
[2018-09-26] MEDS ORDERED: LIDO1ADH TD (12:25)
[2018-09-26] MEDS ORDERED: BUME2TAB3 PO (12:25)
[2018-09-26] MEDS ORDERED: BACL10TA PO (12:25)
--- NOTE | 2018-09-26 12:28 | NUR ---
UPDATED MED REC WITH ORDER SUMMARY [facility] [place]
[2018-09-26] MEDS: PIPERACILLIN/TAZOBACTAM (BULK) 4.5 GM in NS (IVPB) 100 ML IV SCH ×2 (13:52→22:50)
[2018-09-26] MEDS: CEFEPIME 2,000 MG/SWFI 20 ML IV PUSH IV SCH ×2 (13:53)
--- NOTE | 2018-09-26 14:20 | NUR ---
Pastoral care visit.
[2018-09-26 16:00] VITALS: BP 133/63
[2018-09-26 20:00] VITALS: BP 146/68
[2018-09-26] MEDS ORDERED: PIPERACILLIN/TAZO 4.5 GM VIAL (ZOSYN) IV ONE (22:54)
[2018-09-26] MEDS ORDERED: NS (IVPB) 100 ML ONE (22:55)
[2018-09-27 00:50] VITALS: BP 146/65
[2018-09-27 04:00] VITALS: BP 148/75
[2018-09-27] MEDS ORDERED: PIPERACILLIN/TAZO 4.5 GM VIAL (ZOSYN) IV ONE (04:50)
[2018-09-27] MEDS ORDERED: NS (IVPB) 100 ML ONE (04:50)
[2018-09-27] MEDS: inSUlin ASPART (NovoLOG) 1 UNIT/0.01 ML (CHARGE PER UNIT) SC SCH ×4 (05:28→20:49)
[2018-09-27] MEDS: PIPERACILLIN/TAZOBACTAM (BULK) 4.5 GM in NS (IVPB) 100 ML IV SCH (05:28)
[2018-09-27 05:39] LABS: BASOPHILS % (AUTO) 0 % (0-10); EOSINOPHILS # (AUTO) 0.1 10^3/uL (0.0-0.3); EOSINOPHILS % (AUTO) 1 % (0-10); HEMATOCRIT 32 % (35-52); HEMOGLOBIN 9.8 G/DL (11.5-16.0); LYMPHOCYTES # (AUTO) 0.6 X 10^3 (1.0-4.0); LYMPHOCYTES % (AUTO) 8 % (12-44); MEAN CORPUSCULAR HEMOGLOBIN 26 PG (25-34); MEAN CORPUSCULAR HGB CONC 31 G/DL (32-36); MEAN CORPUSCULAR VOLUME 85 FL (80-99); MONOCYTES # (AUTO) 0.6 X 10^3 (0.0-1.0); MONOCYTES % (AUTO) 8 % (0-12); NEUTROPHILS # (AUTO) 6.4 X 10^3 (1.8-7.8); NEUTROPHILS % (AUTO) 83 % (42-75); PLATELET COUNT 252 10^3/uL (130-400); RED CELL DISTRIBUTION WIDTH 20.1 % (10.0-14.5); WHITE BLOOD COUNT 7.8 10^3/uL (4.3-11.0)
[2018-09-27 06:03] LABS: CALCIUM 9.9 MG/DL (8.5-10.1); CREATININE SERUM 2.31 MG/DL (0.60-1.30); MAGNESIUM 1.8 MG/DL (1.8-2.4); PHOSPHORUS 3.4 MG/DL (2.3-4.7); POTASSIUM 3.4 MMOL/L (3.6-5.0)
--- NOTE | 2018-09-27 07:22 | Pulmonary Progress Note ---
Subjective Time Seen by a Provider: 07:22 Subjective/Events-last exam No complications noted. Sepsis Event Evaluation Height, Weight, BMI Height: 5'7.00" Weight: 162lbs. 11.2oz. 73.954450ez; 26.9 BMI Method:Stated Exam Exam Vital Signs Date Time Temp Pulse Resp B/P (MAP) Pulse Ox O2 Delivery O2 Flow Rate FiO2 09/27/18 04:00 97.8 92 20 148/75 (99) 96 Nasal Cannula 2.00 09/27/18 01:00 83 09/27/18 00:50 98.1 87 20 146/65 (92) 96 Nasal Cannula 2.00 09/26/18 20:40 Nasal Cannula 2.00 09/26/18 20:00 98.3 84 18 146/68 (94) 96 Nasal Cannula 2.00 09/26/18 19:00 89 09/26/18 16:00 98.1 89 16 133/63 (86) 96 Nasal Cannula 2.00 09/26/18 13:00 89 09/26/18 08:00 98.8 90 18 160/54 (89) 92 Nasal Cannula 2.00 09/26/18 08:00 2.00 I & O 09/27/18 07:00 Intake Total 1500 ml Output Total 3250 ml Balance -1750 ml Height & Weight Height: 5'7.00" Weight: 162lbs. 11.2oz. 73.742519an; 26.9 BMI Method:Stated General Appearance: No Apparent Distress, WD/WN, Chronically ill, Other ( sedated) HEENT: TMs Normal, Normal ENT Inspection Neck: Full Range of Motion Respiratory: No Accessory Muscle Use, No Respiratory Distress, Crackles, Decreased Breath Sounds, Wheezing Cardiovascular: Regular Rate, Rhythm, No Edema Capillary Refill: Less Than 3 Seconds Gastrointestinal: non tender, soft Extremity: Normal Capillary Refill, Normal Inspection, Pedal Edema Neurologic/Psychiatric: Depressed Affect Skin: Normal Color, Warm/Dry Lymphatic: No Adenopathy Results Lab Laboratory Tests 09/26/18 04:30 09/27/18 05:20 Assessment/Plan Assessment/Plan Acute seizures/ Metabolic encephalopathy -- Pt does have hx of seizures -Monitor -Keppra COPDAE with Influenza B -Tamiflu Hypokalemia -Replace UTI - with Pseudomonus -Change Abx to Zosyn Pleural effusion -Monitor -Has improved CAD with CHF- systoic/diastolic 08/09/18 EF 35 % -Cardiology consulted -Monitor NSTEMI -Cardiology consulted -EKG -trend serial troponins Acute on chronic renal failure stage 4 PT is ok from pulmonary standpoint for discharge. KAMRYN GREENE DO Sep 27, 2018 07:22
[2018-09-27] MEDS ORDERED: FUROSEMIDE 40 MG/4 ML INJ (LASIX) IVP NR (07:30)
[2018-09-27] MEDS ORDERED: KCL 20 MEQ TAB (K-DUR) PO NR (07:30)
[2018-09-27] MEDS: ASPIRIN E.C. 81 MG (ECOTRIN) TAB PO SCH (07:50)
[2018-09-27] MEDS: LEVETIRACETAM 500 MG/ 5 ML UDC ORAL SOLN (KEPPRA) PO SCH ×2 (07:50→20:48)
[2018-09-27] MEDS: CLOPIDOGREL 75 MG (PLAVIX) TABLET PO SCH (07:51)
[2018-09-27] MEDS: OSELTAMIVIR 30 MG (TAMIFLU) CAPSULE PO SCH (07:51)
[2018-09-27 08:00] VITALS: BP 143/80
--- NOTE | 2018-09-27 08:09 | Progress Note (SOAP) ---
Subjective Time Seen by a Provider: 08:07 Subjective/Events-last exam Patient awake today. Patient is talking. Patient knows who I am. Patient improving Objective Exam Vital Signs Date Time Temp Pulse Resp B/P (MAP) Pulse Ox O2 Delivery O2 Flow Rate FiO2 09/27/18 07:00 90 09/27/18 04:00 97.8 92 20 148/75 (99) 96 Nasal Cannula 2.00 09/27/18 01:00 83 09/27/18 00:50 98.1 87 20 146/65 (92) 96 Nasal Cannula 2.00 09/26/18 20:40 Nasal Cannula 2.00 09/26/18 20:00 98.3 84 18 146/68 (94) 96 Nasal Cannula 2.00 09/26/18 19:00 89 09/26/18 16:00 98.1 89 16 133/63 (86) 96 Nasal Cannula 2.00 09/26/18 13:00 89 I & O 09/27/18 07:00 Intake Total 1500 ml Output Total 3250 ml Balance -1750 ml Capillary Refill : Less Than 3 Seconds General Appearance: No Apparent Distress, Thin HEENT: Normal ENT Inspection Neck: Normal Inspection Respiratory: No Accessory Muscle Use, No Respiratory Distress Cardiovascular: Regular Rate, Rhythm, No Murmur Results Lab Laboratory Tests 09/27/18 05:20 Laboratory Tests 09/26/18 11:17: Glucometer 387H 09/26/18 15:56: Glucometer 240H 09/26/18 21:36: Glucometer 179H 09/27/18 05:20: White Blood Count 7.8, Red Blood Count 3.73L, Hemoglobin 9.8L, Hematocrit 32L, Mean Corpuscular Volume 85, Mean Corpuscular Hemoglobin 26, Mean Corpuscular Hemoglobin Concent 31L, Red Cell Distribution Width 20.1H, Platelet Count 252, Mean Platelet Volume 10.0, Neutrophils (%) (Auto) 83H, Lymphocytes (%) (Auto) 8L , Monocytes (%) (Auto) 8, Eosinophils (%) (Auto) 1, Basophils (%) (Auto) 0, Neutrophils # (Auto) 6.4, Lymphocytes # (Auto) 0.6L, Monocytes # (Auto) 0.6, Eosinophils # (Auto) 0.1, Basophils # (Auto) 0.0, Sodium Level 145, Potassium Level 3.4L, Chloride Level 102, Carbon Dioxide Level 28, Anion Gap 15H, Blood Urea Nitrogen 62H, Creatinine 2.31H, Estimat Glomerular Filtration Rate 21, BUN/ Creatinine Ratio 27, Glucose Level 224H, Calcium Level 9.9, Phosphorus Level 3.4 , Magnesium Level 1.8 09/27/18 05:23: Glucometer 230H Microbiology 09/24/18 Blood Culture - Preliminary, Resulted No growth 09/24/18 MRSA Screen - Final, Complete MRSA not isolated 09/24/18 Urine Culture - Final, Complete Pseudomonas aeruginosa Assessment/Plan Assessment/Plan Assess & Plan/Chief Complaint Patient has history of nonreponsive with UTI. Urine cx pseudomonas. Antibiotic changed. Acute mental status change less. Influenza B Elevated troponin. Seizure like activity. Patient did open eyes today. Patient moved all extremities. . . 09/27/18. Patient responsive today. Patient knows who I am. Influenza B. Elevated troponin. Seizure-like activity. COPD. Diabetes. Patient improved today and plan to discharge tomorrow Clinical Quality Measures DVT/VTE Risk/Contraindication: Risk Factor Score Per Nursin RFS Level Per Nursing on Admit: 4+=Very High MERRICK SIEGEL DO Sep 27, 2018 08:09
--- NOTE | 2018-09-27 08:49 | Progress Note-Cardiology ---
Cardiology SOAP Progress Note Subjective: Alert today. Denies any pain. Conversation inappropriate to questions asked. Objective: I&O/Vital Signs 09/27/18 09/27/18 09/27/18 09/27/18 04:00 07:00 08:00 08:00 Temp 97.8 98.8 Pulse 92 90 89 Resp 20 20 B/P (MAP) 148/75 (99) 143/80 (101) Pulse Ox 96 97 97 O2 Delivery Nasal Cannula Nasal Cannula Nasal Cannula O2 Flow Rate 2.00 2.00 2.00 09/27/18 09/27/18 12:00 13:00 Temp 98.4 Pulse 90 91 Resp 20 B/P (MAP) 137/71 (93) Pulse Ox 99 O2 Delivery Nasal Cannula O2 Flow Rate 2.00 09/27/18 00:00 Intake Total 1140 ml Output Total 2250 ml Balance -1110 ml Weight (Pounds): 162 Weight (Ounces): 11.2 Weight (Calculated Kilograms): 73.156987 Constitutional: No AAO x 3; well-developed, well-nourished, other (oriented to self only; easily aggitated) Respiratory: No accessory muscle use; other (fair to good bilat air entry, diminished at the bases) Cardiovascular: regular rate-rhythm, S1 and S2, systolic murmur (soft LELA at card base) Gastrointestional: No tender; soft; No guarding, No rebound; audible bowel sounds Extremities: No clubbing, No cyanosis, No significant edema Neurologic/Psychiatric: No oriented x 3; other (seems to move all limbs equally ) Skin: No rash on exposed areas, No ulcerations on exposed areas Results/Procedures: Labs Laboratory Tests 09/26/18 15:56: Glucometer 240H 09/26/18 21:36: Glucometer 179H 09/27/18 05:20: White Blood Count 7.8, Red Blood Count 3.73L, Hemoglobin 9.8L, Hematocrit 32L, Mean Corpuscular Volume 85, Mean Corpuscular Hemoglobin 26, Mean Corpuscular Hemoglobin Concent 31L, Red Cell Distribution Width 20.1H, Platelet Count 252, Mean Platelet Volume 10.0, Neutrophils (%) (Auto) 83H, Lymphocytes (%) (Auto) 8L , Monocytes (%) (Auto) 8, Eosinophils (%) (Auto) 1, Basophils (%) (Auto) 0, Neutrophils # (Auto) 6.4, Lymphocytes # (Auto) 0.6L, Monocytes # (Auto) 0.6, Eosinophils # (Auto) 0.1, Basophils # (Auto) 0.0, Sodium Level 145, Potassium Level 3.4L, Chloride Level 102, Carbon Dioxide Level 28, Anion Gap 15H, Blood Urea Nitrogen 62H, Creatinine 2.31H, Estimat Glomerular Filtration Rate 21, BUN/ Creatinine Ratio 27, Glucose Level 224H, Calcium Level 9.9, Phosphorus Level 3.4 , Magnesium Level 1.8 09/27/18 05:23: Glucometer 230H 09/27/18 09:45: Urine Color YELLOW, Urine Clarity CLEAR, Urine pH 6.5, Urine Specific [place] 1.010L, Urine Protein 2+H, Urine Glucose (UA) 3+H, Urine Ketones NEGATIVE, Urine Nitrite NEGATIVE, Urine Bilirubin NEGATIVE, Urine Urobilinogen NORMAL, Urine Leukocyte Esterase 2+H, Urine RBC (Auto) 2+H, Urine RBC 5-10H, Urine WBC 5 -10H, Urine Squamous Epithelial Cells NONE, Urine Crystals NONE, Urine Bacteria NEGATIVE, Urine Casts NONE, Urine Mucus NEGATIVE, Urine Culture Indicated YES 09/27/18 11:00: Glucometer 280H Microbiology 09/24/18 Blood Culture - Preliminary, Resulted No growth 09/24/18 MRSA Screen - Final, Complete MRSA not isolated 09/24/18 Urine Culture - Final, Complete Pseudomonas aeruginosa A/P: Assessment: AMS, managed by the Med Svce - improved today UTI with probable urosepsis CKD 4 with probable STEPHANIE stage 1 Influenzae B, 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 The procedure showed severe proximal LAD disease, proximal occlusion of the ramus intermedius and moderately to severe long stenosis in the proximal portion of the circumflex artery, patent stents in the proximal and distal right coronary artery that is known to have 3 stents, moderately to severe stenosis in a small caliber PDA from the RCA, occlusion of the vein graft to the right ramus intermedius (underwent balloon angioplasty using 2.012 mm stent at the site of insertion of the graft to the ramus intermedius then Alpine 3 x 38 stent in the proximal and midportion of the graft), patent HUFF to LAD, ejection fraction 50 percent; had another angioplasty in October 2017 for occlusion of the vein graft to the ramus intermedius, was transferred in June 2018 to Home after having myocardial infarction and reported that she had 2 stents placed while she was in the hospital - we have not been able to obtain this report despite multiple requests Ischemic cardiomyopathy. Most recent echocardiogram on 08/09/18: LVEF 35%, conc LVH, mild LA enlargement, mod MR, mod to severe TR, PASP 25 mmHg, L pleural eff Diabetes mellitus, followed and managed by primary care physician Peripheral neuropathy, probably diabetic, continue to monitor Bilateral leg swelling with discomfort, and chronic leg weakness Plan: * Complex management due to multiple comorbidities that are outlined above * Continue previous card regimen * Replenish K * Monitor labs closely Physician Assessment Physician Assessment Still confused and response to questions unreliable Lungs: good air entry, diminished at the bases Cor: reg Ext: no c/c/e A&R * As documented in our note above that I updated (italics) and as noted below * Monitor labs JERARDO SCHWARTZ Sep 27, 2018 08:49 DORA HASSAN MD [facility] Sep 27, 2018 13:43
[2018-09-27 09:54] LABS: BILIRUBIN,URINE NEGATIVE (NEGATIVE); CLARITY,URINE CLEAR; COLOR,URINE YELLOW; GLUCOSE, URINE (UA) 3+ (NEGATIVE); KETONES,URINE NEGATIVE (NEGATIVE); LEUKOCYTE ESTERASE ,URINE 2+ (NEGATIVE); NITRITE,URINE NEGATIVE (NEGATIVE); PH,URINE 6.5 (5-9); PROTEIN,URINE 2+ (NEGATIVE); UROBILINOGEN,URINE NORMAL (NORMAL)
[2018-09-27 10:07] LABS: BACTERIA,URINE NEGATIVE /HPF
[2018-09-27 12:00] VITALS: BP 137/71
--- NOTE | 2018-09-27 13:03 | Diagnostic Imaging Report ---
CLINICAL INDICATION: Patient with altered mental status, congestive heart failure and COPD. EXAM: Portable chest x-ray upright view. COMPARISON: Portable chest x-ray upright view dated 09/26/2018. FINDINGS: Again seen cardiomegaly with stable pulmonary vascular congestion. There is no pleural effusion or pneumothorax. There is groundglass opacification and increased lung markings throughout both lungs which may represent lung infiltrates or pulmonary congestion. Stable postop changes to the chest consistent with CABG. IMPRESSION: 1: Stable chest x-ray exam with cardiomegaly and pulmonary vascular congestion which can be seen with congestive heart failure. 2: Stable increased lung markings and groundglass opacification involving both lungs which may be related to pulmonary congestion or lung infiltrates. Dictated by: Dictated on workstation # [id number]
[2018-09-27] MEDS: CEFEPIME 2,000 MG/SWFI 20 ML IV PUSH IV SCH ×2 (13:30)
[2018-09-27 16:00] VITALS: BP 148/86
[2018-09-27] MEDS ORDERED: inSUlin (REGULAR) HUMAN 1 UNIT/0.01 ML (CHARGE PER UNIT) SC NR (16:00)
[2018-09-27 20:00] VITALS: BP 148/73
--- NOTE | 2018-09-27 20:41 | NUR ---
BS 415. DR. SIEGEL CALLED ORDER TO GIVE 15 UNITS OF REGULAR INSULIN AND STOP IV FLUIDS.
[2018-09-28 00:37] VITALS: BP 142/72
[2018-09-28 04:31] LABS: BASOPHILS # (AUTO) 0.1 10^3/uL (0.0-0.1); BASOPHILS % (AUTO) 1 % (0-10); EOSINOPHILS # (AUTO) 0.3 10^3/uL (0.0-0.3); EOSINOPHILS % (AUTO) 3 % (0-10); HEMATOCRIT 31 % (35-52); HEMOGLOBIN 9.9 G/DL (11.5-16.0); LYMPHOCYTES % (AUTO) 9 % (12-44); MEAN CORPUSCULAR HEMOGLOBIN 27 PG (25-34); MEAN CORPUSCULAR HGB CONC 32 G/DL (32-36); MEAN CORPUSCULAR VOLUME 85 FL (80-99); MEAN PLATELET VOLUME 9.8 FL (7.4-10.4); MONOCYTES % (AUTO) 9 % (0-12); NEUTROPHILS # (AUTO) 8.6 X 10^3 (1.8-7.8); NEUTROPHILS % (AUTO) 79 % (42-75); PLATELET COUNT 232 10^3/uL (130-400); RED CELL DISTRIBUTION WIDTH 19.7 % (10.0-14.5); WHITE BLOOD COUNT 10.9 10^3/uL (4.3-11.0)
[2018-09-28 05:03] LABS: CALCIUM 9.6 MG/DL (8.5-10.1); CREATININE SERUM 2.24 MG/DL (0.60-1.30); MAGNESIUM 1.7 MG/DL (1.8-2.4); PHOSPHORUS 2.7 MG/DL (2.3-4.7); POTASSIUM 3.6 MMOL/L (3.6-5.0)
[2018-09-28] MEDS: inSUlin ASPART (NovoLOG) 1 UNIT/0.01 ML (CHARGE PER UNIT) SC SCH ×2 (05:20→11:24)
--- NOTE | 2018-09-28 06:57 | Pulmonary Progress Note ---
Subjective Time Seen by a Provider: 07:00 Subjective/Events-last exam No complications noted. Sepsis Event Evaluation Height, Weight, BMI Height: 5'7.00" Weight: 166lbs. 1.6oz. 75.649563jg; 26.9 BMI Method:Stated Exam Exam Vital Signs Date Time Temp Pulse Resp B/P (MAP) Pulse Ox O2 Delivery O2 Flow Rate FiO2 09/28/18 00:37 98.9 83 18 142/72 (95) 99 Nasal Cannula 2.00 09/27/18 23:17 Nasal Cannula 2.00 09/27/18 20:00 Nasal Cannula 2.00 09/27/18 20:00 97.8 87 18 148/73 (98) 99 Nasal Cannula 2.00 09/27/18 16:00 98.2 100 18 148/86 (106) 98 Nasal Cannula 2.00 09/27/18 13:00 91 09/27/18 12:00 98.4 90 20 137/71 (93) 99 Nasal Cannula 2.00 09/27/18 08:00 97 Nasal Cannula 2.00 09/27/18 08:00 98.8 89 20 143/80 (101) 97 Nasal Cannula 2.00 09/27/18 07:00 90 I & O 09/28/18 07:00 Intake Total 1960 ml Output Total 3025 ml Balance -1065 ml Height & Weight Height: 5'7.00" Weight: 166lbs. 1.6oz. 75.930801bk; 26.9 BMI Method:Stated General Appearance: No Apparent Distress, Thin HEENT: Normal ENT Inspection Neck: Normal Inspection Respiratory: No Accessory Muscle Use, No Respiratory Distress Cardiovascular: Regular Rate, Rhythm, No Murmur Capillary Refill: Less Than 3 Seconds Gastrointestinal: non tender, soft Extremity: Normal Capillary Refill, Normal Inspection, Pedal Edema Neurologic/Psychiatric: Depressed Affect Skin: Normal Color, Warm/Dry Lymphatic: No Adenopathy Results Lab Laboratory Tests 09/27/18 05:20 09/28/18 04:15 Assessment/Plan Assessment/Plan Acute seizures/ Metabolic encephalopathy -- Pt does have hx of seizures -Monitor -Keppra COPDAE with Influenza B -Tamiflu Hypokalemia, hypomag -Replace UTI - with Pseudomonas -Zosyn Pleural effusion -Monitor -Has improved CAD with CHF- systoic/diastolic 08/09/18 EF 35 % -Cardiology consulted -Monitor NSTEMI -Cardiology consulted -EKG -trend serial troponins Acute on chronic renal failure stage 4 PT is ok from pulmonary standpoint for discharge. KAMRYN GREENE DO Sep 28, 2018 06:57
[2018-09-28] MEDS ORDERED: POTASSIUM CL 10MEQ/50ML IVPB 50 ML IV SCH (07:00)
[2018-09-28] MEDS ORDERED: MAGNESIUM 1 GM/100 ML IVPB 100 ML IV SCH (07:00)
[2018-09-28 08:00] VITALS: BP 136/76
--- NOTE | 2018-09-28 08:09 | Diagnostic Imaging Report ---
INDICATION: Altered mental status. TECHNIQUE: Frontal view of the chest. COMPARISON: 09/27/2018. FINDINGS: Lung volumes appear stable. There is mild cardiomegaly with central vascular congestion. Interstitial markings appear improved. No new consolidation is seen. There is no significant pleural effusion or pneumothorax. Sternotomy wires are noted. IMPRESSION: 1. Stable mild cardiomegaly with central vascular congestion. Interstitial opacities are improved compared to the prior study. Dictated by: Dictated on workstation # [id number]
--- NOTE | 2018-09-28 08:23 | Progress Note (SOAP) ---
Subjective Time Seen by a Provider: 08:21 Subjective/Events-last exam Patient awake today and doing better. Patient to be discharged back to snf. Patient does communicate some Objective Exam Vital Signs Date Time Temp Pulse Resp B/P (MAP) Pulse Ox O2 Delivery O2 Flow Rate FiO2 09/28/18 00:37 98.9 83 18 142/72 (95) 99 Nasal Cannula 2.00 09/27/18 23:17 Nasal Cannula 2.00 09/27/18 20:00 Nasal Cannula 2.00 09/27/18 20:00 97.8 87 18 148/73 (98) 99 Nasal Cannula 2.00 09/27/18 16:00 98.2 100 18 148/86 (106) 98 Nasal Cannula 2.00 09/27/18 13:00 91 09/27/18 12:00 98.4 90 20 137/71 (93) 99 Nasal Cannula 2.00 I & O 09/28/18 07:00 Intake Total 1960 ml Output Total 3025 ml Balance -1065 ml Capillary Refill : Less Than 3 Seconds General Appearance: No Apparent Distress, Thin HEENT: Normal ENT Inspection Neck: Normal Inspection Respiratory: No Accessory Muscle Use, No Respiratory Distress Cardiovascular: Regular Rate, Rhythm Gastrointestinal: non tender, soft Results Lab Laboratory Tests 09/28/18 04:15 Laboratory Tests 09/27/18 09:45: Urine Color YELLOW, Urine Clarity CLEAR, Urine pH 6.5, Urine Specific [place] 1.010L, Urine Protein 2+H, Urine Glucose (UA) 3+H, Urine Ketones NEGATIVE, Urine Nitrite NEGATIVE, Urine Bilirubin NEGATIVE, Urine Urobilinogen NORMAL, Urine Leukocyte Esterase 2+H, Urine RBC (Auto) 2+H, Urine RBC 5-10H, Urine WBC 5 -10H, Urine Squamous Epithelial Cells NONE, Urine Crystals NONE, Urine Bacteria NEGATIVE, Urine Casts NONE, Urine Mucus NEGATIVE, Urine Culture Indicated YES 09/27/18 11:00: Glucometer 280H 09/27/18 15:38: Glucometer 422*H 09/27/18 20:30: Glucometer 415*H 09/28/18 04:15: White Blood Count 10.9, Red Blood Count 3.67L, Hemoglobin 9.9L, Hematocrit 31L, Mean Corpuscular Volume 85, Mean Corpuscular Hemoglobin 27, Mean Corpuscular Hemoglobin Concent 32, Red Cell Distribution Width 19.7H, Platelet Count 232, Mean Platelet Volume 9.8, Neutrophils (%) (Auto) 79H, Lymphocytes (%) (Auto) 9L , Monocytes (%) (Auto) 9, Eosinophils (%) (Auto) 3, Basophils (%) (Auto) 1, Neutrophils # (Auto) 8.6H, Lymphocytes # (Auto) 1.0, Monocytes # (Auto) 1.0, Eosinophils # (Auto) 0.3, Basophils # (Auto) 0.1, Sodium Level 143, Potassium Level 3.6, Chloride Level 101, Carbon Dioxide Level 25, Anion Gap 17H, Blood Urea Nitrogen 60H, Creatinine 2.24H, Estimat Glomerular Filtration Rate 21, BUN/ Creatinine Ratio 27, Glucose Level 179H, Calcium Level 9.6, Phosphorus Level 2.7 , Magnesium Level 1.7L 09/28/18 05:13: Glucometer 204H Microbiology 09/24/18 Blood Culture - Preliminary, Resulted No growth 09/24/18 MRSA Screen - Final, Complete MRSA not isolated 09/24/18 Urine Culture - Final, Complete Pseudomonas aeruginosa Assessment/Plan Assessment/Plan Assess & Plan/Chief Complaint Patient has history of nonreponsive with UTI. Urine cx pseudomonas. Antibiotic changed. Acute mental status change less. Influenza B Elevated troponin. Seizure like activity. Patient did open eyes today. Patient moved all extremities. . . 09/27/18. Patient responsive today. Patient knows who I am. Influenza B. Elevated troponin. Seizure-like activity. COPD. Diabetes. Patient improved today and plan to discharge tomorrow area . 09/28/18. Patient doing better today. Patient be discharged today. Influenza B Elevated troponin. COPD. Diabetes. Renal insufficiency. Hypomagnesemia. Hypokalemia. 2 office on Wednesday Clinical Quality Measures DVT/VTE Risk/Contraindication: Risk Factor Score Per Nursin RFS Level Per Nursing on Admit: 4+=Very High MERRICK SIEGEL DO Sep 28, 2018 08:23
[2018-09-28] MEDS ORDERED: MAGNESIUM 1 GM/100 ML IVPB 100 ML IV ONE (08:24)
[2018-09-28] MEDS ORDERED: MAGNESIUM 1 GM/100 ML IVPB 100 ML IV NR (08:30)
[2018-09-28] MEDS: OSELTAMIVIR 30 MG (TAMIFLU) CAPSULE PO SCH (08:33)
[2018-09-28] MEDS: LEVETIRACETAM 500 MG/ 5 ML UDC ORAL SOLN (KEPPRA) PO SCH (08:34)
[2018-09-28] MEDS: CLOPIDOGREL 75 MG (PLAVIX) TABLET PO SCH (08:34)
[2018-09-28] MEDS: ASPIRIN E.C. 81 MG (ECOTRIN) TAB PO SCH (08:35)
[2018-09-28] MEDS ORDERED: LEVO500T2 PO (08:40)
--- NOTE | 2018-09-28 11:51 | NUR ---
CM/SS discharge information sent to [facility]. Transport time is set for 1300, facility was asked to bring clothes for the patient. Patient and RNing updated.
--- NOTE | 2018-09-28 13:45 | NUR ---
[facility], report given to Taryn FOLEY
--- NOTE | 2018-09-28 13:50 | Progress Note-Cardiology ---
Cardiology SOAP Progress Note Subjective: More alert, but still moderately confused and cannot provide reliable answers to questions Objective: I&O/Vital Signs 09/28/18 09/28/18 08:00 08:00 Temp 98.4 Pulse 89 Resp 18 B/P (MAP) 136/76 (96) Pulse Ox 90 90 O2 Delivery Nasal Cannula Room Air O2 Flow Rate 2.00 0.00 09/28/18 00:00 Intake Total 1960 ml Output Total 2375 ml Balance -415 ml Weight (Pounds): 166 Weight (Ounces): 1.6 Weight (Calculated Kilograms): 75.773685 Constitutional: No AAO x 3; well-developed, well-nourished, other (oriented to self only; easily aggitated) Respiratory: No accessory muscle use; other (fair to good bilat air entry, diminished at the bases) Cardiovascular: regular rate-rhythm, S1 and S2, systolic murmur (soft LELA at card base) Gastrointestional: No tender; soft; No guarding, No rebound; audible bowel sounds Extremities: No clubbing, No cyanosis, No significant edema Neurologic/Psychiatric: No oriented x 3; other (seems to move all limbs equally ) Skin: No rash on exposed areas, No ulcerations on exposed areas Results/Procedures: Labs Laboratory Tests 09/27/18 15:38: Glucometer 422*H 09/27/18 20:30: Glucometer 415*H 09/28/18 04:15: White Blood Count 10.9, Red Blood Count 3.67L, Hemoglobin 9.9L, Hematocrit 31L, Mean Corpuscular Volume 85, Mean Corpuscular Hemoglobin 27, Mean Corpuscular Hemoglobin Concent 32, Red Cell Distribution Width 19.7H, Platelet Count 232, Mean Platelet Volume 9.8, Neutrophils (%) (Auto) 79H, Lymphocytes (%) (Auto) 9L , Monocytes (%) (Auto) 9, Eosinophils (%) (Auto) 3, Basophils (%) (Auto) 1, Neutrophils # (Auto) 8.6H, Lymphocytes # (Auto) 1.0, Monocytes # (Auto) 1.0, Eosinophils # (Auto) 0.3, Basophils # (Auto) 0.1, Sodium Level 143, Potassium Level 3.6, Chloride Level 101, Carbon Dioxide Level 25, Anion Gap 17H, Blood Urea Nitrogen 60H, Creatinine 2.24H, Estimat Glomerular Filtration Rate 21, BUN/ Creatinine Ratio 27, Glucose Level 179H, Calcium Level 9.6, Phosphorus Level 2.7 , Magnesium Level 1.7L 09/28/18 05:13: Glucometer 204H 09/28/18 10:55: Glucometer 263H Microbiology 09/24/18 Blood Culture - Preliminary, Resulted No growth 09/24/18 MRSA Screen - Final, Complete MRSA not isolated 09/27/18 Urine Culture - Preliminary, Resulted Gram Negative [place] Laboratory Tests 09/27/18 05:20 09/28/18 04:15 A/P: Assessment: AMS, managed by the Med Svce - improved today UTI with probable urosepsis CKD 4 with probable STEPHANIE stage 1 Influenzae B, being treated by the Med S[facility] Acute on chronic systolic & diastolic congestive heart failure, elevated BNP Coronary artery disease, history of CABG, had previous [place] in September 2017 underwent angioplasty to the vein graft to the ramus intermedius. The procedure showed severe proximal LAD disease, proximal occlusion of the ramus intermedius and moderately to severe long stenosis in the proximal portion of the circumflex artery, patent stents in the proximal and distal right coronary artery that is known to have 3 stents, moderately to severe stenosis in a small caliber PDA from the RCA, occlusion of the vein graft to the right ramus intermedius (underwent balloon angioplasty using 2.012 mm stent at the site of insertion of the graft to the ramus intermedius then Alpine 3 x 38 stent in the proximal and midportion of the graft), patent HUFF to LAD, ejection fraction 50 percent; had another angioplasty in October 2017 for occlusion of the vein graft to the ramus intermedius, was transferred in June 2018 to [place] after having myocardial infarction and reported that she had 2 stents placed while she was in the hospital - we have not been able to obtain this report despite multiple requests Ischemic cardiomyopathy. Most recent echocardiogram on 08/09/18: LVEF 35%, conc LVH, mild LA enlargement, mod MR, mod to severe TR, PASP 25 mmHg, L pleural eff Diabetes mellitus, followed and managed by primary care physician Peripheral neuropathy, probably diabetic, continue to monitor Bilateral leg swelling with discomfort, and chronic leg weakness Plan: * Complex management due to multiple comorbidities that are outlined above * Continue previous card regimen * Monitor labs DORA HASSAN MD FACP [facility] Sep 28, 2018 13:50
--- NOTE | 2018-09-29 07:39 | Discharge Summary ---
Diagnosis/Chief Complaint Date of Admission Sep 24, 2018 at 04:00 Date of Discharge Sep 28, 2018 at 13:50 Discharge Time: 07:36 Discharge Diagnosis Daily mental status change. Alzheimer's disease. Anemia. Coronary artery disease. Chronic combined systolic and diastolic congestive heart failure. CK disease stage IV. Chronic obstructive pulmonary disease DO NOT RESUSCITATE. Dementia. Diabetes. Epilepsy. Long-term use of insulin. Nicotine dependence. Major depressive disorder. UTI. UTI due to pseudomonas aeruginosa. Pneumonia. Diabetic neuropathy. Elevated troponin. COPD Discharge Summary Consultations Cardiology. Pulmonology Discharge Physical Examination Allergies: Coded Allergies: NKANo Known Allergies (Verified Allergy, Unknown, 07/15/18) Vitals & I&Os Vital Signs Date Time Temp Pulse Resp B/P (MAP) Pulse Ox O2 Delivery O2 Flow Rate FiO2 09/28/18 08:00 90 Room Air 0.00 09/28/18 08:00 98.4 89 18 136/76 (96) Hospital Course Patient did wake up. Patient did communicate. Patient transferred back to [facility] (last 24 hrs) Laboratory Tests 09/24/18 02:25: White Blood Count 7.0, Red Blood Count 3.58L, Hemoglobin 9.4L, Hematocrit 30L, Mean Corpuscular Volume 82, Mean Corpuscular Hemoglobin 26, Mean Corpuscular Hemoglobin Concent 32, Red Cell Distribution Width 18.7H, Platelet Count 222, Mean Platelet Volume 10.2, Neutrophils (%) (Auto) 72, Lymphocytes (%) (Auto) 14 , Monocytes (%) (Auto) 11, Eosinophils (%) (Auto) 2, Basophils (%) (Auto) 0, Neutrophils # (Auto) 5.1, Lymphocytes # (Auto) 1.0, Monocytes # (Auto) 0.8, Eosinophils # (Auto) 0.2, Basophils # (Auto) 0.0, Prothrombin Time 15.0H, INR Comment 1.1, Activated Partial Thromboplast Time 31, Sodium Level 131L, Potassium Level 3.4L, Chloride Level 91L, Carbon Dioxide Level 24, Anion Gap 16H , Blood Urea Nitrogen 77H, Creatinine 2.87H, Estimat Glomerular Filtration Rate 16, BUN/Creatinine Ratio 27, Glucose Level 121H, Lactic Acid Level 1.55, Calcium Level 9.2, Corrected Calcium 9.4, Magnesium Level 2.2, Total Bilirubin 0.4, Aspartate Amino Transf (AST/SGOT) 16, Alanine Aminotransferase (ALT/SGPT) 9 , Alkaline Phosphatase 93, Troponin I 0.053H, B-Type Natriuretic Peptide 2319.3H , Total Protein 8.0, Albumin 3.7, TSH [facility] Testing 1.66 09/24/18 02:35: Urine Color YELLOW, Urine Clarity SLIGHTLY CLOUDY, Urine pH 6, Urine Specific [place] 1.010L, Urine Protein 3+H, Urine Glucose (UA) NEGATIVE, Urine Ketones NEGATIVE, Urine Nitrite NEGATIVE, Urine Bilirubin NEGATIVE, Urine Urobilinogen NORMAL, Urine Leukocyte Esterase 3+H, Urine RBC (Auto) 3+H, Urine RBC 25-50H, Urine WBC 50-100H, Urine Crystals NONE, Urine Bacteria FEWH, Urine Casts NONE, Urine Mucus NEGATIVE, Urine Culture Indicated YES 09/24/18 04:00: Lab Scanned Report Referred Lab Report 09/24/18 06:10: Blood Gas Puncture Site RT RAD, Blood Gas Patient Temperature 97.8, Arterial Blood pH 7.37, Arterial Blood Partial Pressure CO2 51H, Arterial Blood Partial Pressure O2 86, Arterial Blood HCO3 29H, Arterial Blood Total CO2 30.5, Arterial Blood Oxygen Saturation 97, Arterial Blood Base Excess 3.9H, Benny Test RT RAD, Blood Gas Ventilator Setting NO, Blood Gas Inspired Oxygen NC @ 2L 09/24/18 11:24: Troponin I 0.050H 09/24/18 18:08: Troponin I 0.041H 09/25/18 03:20: White Blood Count 12.8H, Red Blood Count 3.82L, Hemoglobin 10.3L, Hematocrit 32L , Mean Corpuscular Volume 83, Mean Corpuscular Hemoglobin 27, Mean Corpuscular Hemoglobin Concent 33, Red Cell Distribution Width 19.4H, Platelet Count 263, Mean Platelet Volume 10.4, Neutrophils (%) (Auto) 90H, Lymphocytes (%) (Auto) 4L , Monocytes (%) (Auto) 5, Eosinophils (%) (Auto) 0, Basophils (%) (Auto) 0, Neutrophils # (Auto) 11.6H, Lymphocytes # (Auto) 0.5L, Monocytes # (Auto) 0.7, Eosinophils # (Auto) 0.0, Basophils # (Auto) 0.0, Neutrophils % (Manual) 91, Lymphocytes % (Manual) 2, Monocytes % (Manual) 6, Eosinophils % (Manual) 0, Basophils % (Manual) 0, Band Neutrophils 1, Hypochromasia SLIGHT, Poikilocytosis SLIGHT, Anisocytosis MODERATE, Target Cells SLIGHT, Rouleau SLIGHT, Sodium Level 136, Potassium Level 4.1, Chloride Level 95L, Carbon Dioxide Level 23, Anion Gap 18H, Blood Urea Nitrogen 71H, Creatinine 2.66H, Estimat Glomerular Filtration Rate 17, BUN/Creatinine Ratio 27, Glucose Level 211H, Calcium Level 9.5, Phosphorus Level 6.0H, Magnesium Level 2.3 09/25/18 16:06: Glucometer 317H 09/25/18 20:50: Glucometer 258H 09/26/18 04:30: White Blood Count 8.2, Red Blood Count 3.51L, Hemoglobin 9.2L, Hematocrit 29L, Mean Corpuscular Volume 84, Mean Corpuscular Hemoglobin 26, Mean Corpuscular Hemoglobin Concent 31L, Red Cell Distribution Width 19.5H, Platelet Count 245, Mean Platelet Volume 10.4, Neutrophils (%) (Auto) 81H, Lymphocytes (%) (Auto) 9L , Monocytes (%) (Auto) 10, Eosinophils (%) (Auto) 0, Basophils (%) (Auto) 0, Neutrophils # (Auto) 6.6, Lymphocytes # (Auto) 0.7L, Monocytes # (Auto) 0.8, Eosinophils # (Auto) 0.0, Basophils # (Auto) 0.0, Sodium Level 139, Potassium Level 3.3L, Chloride Level 100, Carbon Dioxide Level 24, Anion Gap 15H, Blood Urea Nitrogen 71H, Creatinine 2.37H, Estimat Glomerular Filtration Rate 20, BUN/ Creatinine Ratio 30, Glucose Level 224H, Calcium Level 9.5, Phosphorus Level 4.5 , Magnesium Level 2.1 09/26/18 05:00: Glucometer 241H 09/26/18 11:17: Glucometer 387H 09/26/18 15:56: Glucometer 240H 09/26/18 21:36: Glucometer 179H 09/27/18 05:20: White Blood Count 7.8, Red Blood Count 3.73L, Hemoglobin 9.8L, Hematocrit 32L, Mean Corpuscular Volume 85, Mean Corpuscular Hemoglobin 26, Mean Corpuscular Hemoglobin Concent 31L, Red Cell Distribution Width 20.1H, Platelet Count 252, Mean Platelet Volume 10.0, Neutrophils (%) (Auto) 83H, Lymphocytes (%) (Auto) 8L , Monocytes (%) (Auto) 8, Eosinophils (%) (Auto) 1, Basophils (%) (Auto) 0, Neutrophils # (Auto) 6.4, Lymphocytes # (Auto) 0.6L, Monocytes # (Auto) 0.6, Eosinophils # (Auto) 0.1, Basophils # (Auto) 0.0, Sodium Level 145, Potassium Level 3.4L, Chloride Level 102, Carbon Dioxide Level 28, Anion Gap 15H, Blood Urea Nitrogen 62H, Creatinine 2.31H, Estimat Glomerular Filtration Rate 21, BUN/ Creatinine Ratio 27, Glucose Level 224H, Calcium Level 9.9, Phosphorus Level 3.4 , Magnesium Level 1.8 09/27/18 05:23: Glucometer 230H 09/27/18 09:45: Urine Color YELLOW, Urine Clarity CLEAR, Urine pH 6.5, Urine Specific [place] 1.010L, Urine Protein 2+H, Urine Glucose (UA) 3+H, Urine Ketones NEGATIVE, Urine Nitrite NEGATIVE, Urine Bilirubin NEGATIVE, Urine Urobilinogen NORMAL, Urine Leukocyte Esterase 2+H, Urine RBC (Auto) 2+H, Urine RBC 5-10H, Urine WBC 5 -10H, Urine Squamous Epithelial Cells NONE, Urine Crystals NONE, Urine Bacteria NEGATIVE, Urine Casts NONE, Urine Mucus NEGATIVE, Urine Culture Indicated YES 09/27/18 11:00: Glucometer 280H 09/27/18 15:38: Glucometer 422*H 09/27/18 20:30: Glucometer 415*H 09/28/18 04:15: White Blood Count 10.9, Red Blood Count 3.67L, Hemoglobin 9.9L, Hematocrit 31L, Mean Corpuscular Volume 85, Mean Corpuscular Hemoglobin 27, Mean Corpuscular Hemoglobin Concent 32, Red Cell Distribution Width 19.7H, Platelet Count 232, Mean Platelet Volume 9.8, Neutrophils (%) (Auto) 79H, Lymphocytes (%) (Auto) 9L , Monocytes (%) (Auto) 9, Eosinophils (%) (Auto) 3, Basophils (%) (Auto) 1, Neutrophils # (Auto) 8.6H, Lymphocytes # (Auto) 1.0, Monocytes # (Auto) 1.0, Eosinophils # (Auto) 0.3, Basophils # (Auto) 0.1, Sodium Level 143, Potassium Level 3.6, Chloride Level 101, Carbon Dioxide Level 25, Anion Gap 17H, Blood Urea Nitrogen 60H, Creatinine 2.24H, Estimat Glomerular Filtration Rate 21, BUN/ Creatinine Ratio 27, Glucose Level 179H, Calcium Level 9.6, Phosphorus Level 2.7 , Magnesium Level 1.7L 09/28/18 05:13: Glucometer 204H 09/28/18 10:55: Glucometer 263H Microbiology 09/24/18 Blood Culture - Preliminary, Resulted No growth 09/24/18 MRSA Screen - Final, Complete MRSA not isolated 09/27/18 Urine Culture - Preliminary, Resulted Pseudomonas aeruginosa Laboratory Tests 09/24/18 02:25 09/25/18 03:20 09/26/18 04:30 09/27/18 05:20 09/28/18 04:15 Pending Labs Microbiology Date/Time Source Procedure Growth Status 09/24/18 02:45 Peripheral Rt Ac Blood Culture - Preliminary No growth Resulted 09/24/18 02:25 Peripheral Lt Ac Blood Culture - Preliminary No growth Resulted 09/24/18 05:04 Nasal MRSA Screen - Final MRSA not isolated Complete 09/24/18 02:43 Nasopharynx Influenza Types A,B Antigen ([facility]) - Final Complete 09/27/18 09:45 Urine Clean Catch Urine Culture - Preliminary Pseudomonas aeruginosa Resulted 09/24/18 02:35 Urine Frausto Cath Urine Culture - Final Pseudomonas aeruginosa Complete Laboratory Tests 09/24/18 02:25: White Blood Count 7.0, Red Blood Count 3.58, Hemoglobin 9.4, Hematocrit 30, Mean Corpuscular Volume 82, Mean Corpuscular Hemoglobin 26, Mean Corpuscular Hemoglobin Concent 32, Red Cell Distribution Width 18.7, Platelet Count 222, Mean Platelet Volume 10.2, Neutrophils (%) (Auto) 72, Lymphocytes (%) (Auto) 14 , Monocytes (%) (Auto) 11, Eosinophils (%) (Auto) 2, Basophils (%) (Auto) 0, Neutrophils # (Auto) 5.1, Lymphocytes # (Auto) 1.0, Monocytes # (Auto) 0.8, Eosinophils # (Auto) 0.2, Basophils # (Auto) 0.0, Prothrombin Time 15.0, INR Comment 1.1, Activated Partial Thromboplast Time 31, Sodium Level 131, Potassium Level 3.4, Chloride Level 91, Carbon Dioxide Level 24, Anion Gap 16, Blood Urea Nitrogen 77, Creatinine 2.87, Estimat Glomerular Filtration Rate 16, BUN/Creatinine Ratio 27, Glucose Level 121, Lactic Acid Level 1.55, Calcium Level 9.2, Corrected Calcium 9.4, Magnesium Level 2.2, Total Bilirubin 0.4, Aspartate Amino Transf (AST/SGOT) 16, Alanine Aminotransferase (ALT/SGPT) 9, Alkaline Phosphatase 93, Troponin I 0.053, B-Type Natriuretic Peptide 2319.3, Total Protein 8.0, Albumin 3.7, TSH [facility] Testing 1.66 09/24/18 02:35: Urine Color YELLOW, Urine Clarity SLIGHTLY CLOUDY, Urine pH 6, Urine Specific [place] 1.010, Urine Protein 3+, Urine Glucose (UA) NEGATIVE, Urine Ketones NEGATIVE, Urine Nitrite NEGATIVE, Urine Bilirubin NEGATIVE, Urine Urobilinogen NORMAL, Urine Leukocyte Esterase 3+, Urine RBC (Auto) 3+, Urine RBC 25-50, Urine WBC 50-100, Urine Crystals NONE, Urine Bacteria FEW, Urine Casts NONE, Urine Mucus NEGATIVE, Urine Culture Indicated YES 09/24/18 04:00: Lab Scanned Report Referred Lab Report 09/24/18 06:10: Blood Gas Puncture Site RT RAD, Blood Gas Patient Temperature 97.8, Arterial Blood pH 7.37, Arterial Blood Partial Pressure CO2 51, Arterial Blood Partial Pressure O2 86, Arterial Blood HCO3 29, Arterial Blood Total CO2 30.5, Arterial Blood Oxygen Saturation 97, Arterial Blood Base Excess 3.9, Benny Test RT RAD, Blood Gas Ventilator Setting NO, Blood Gas Inspired Oxygen NC @ 2L 09/24/18 11:24: Troponin I 0.050 09/24/18 18:08: Troponin I 0.041 09/25/18 03:20: White Blood Count 12.8, Red Blood Count 3.82, Hemoglobin 10.3, Hematocrit 32, Mean Corpuscular Volume 83, Mean Corpuscular Hemoglobin 27, Mean Corpuscular Hemoglobin Concent 33, Red Cell Distribution Width 19.4, Platelet Count 263, Mean Platelet Volume 10.4, Neutrophils (%) (Auto) 90, Lymphocytes (%) (Auto) 4, Monocytes (%) (Auto) 5, Eosinophils (%) (Auto) 0, Basophils (%) (Auto) 0, Neutrophils # (Auto) 11.6, Lymphocytes # (Auto) 0.5, Monocytes # (Auto) 0.7, Eosinophils # (Auto) 0.0, Basophils # (Auto) 0.0, Neutrophils % (Manual) 91, Lymphocytes % (Manual) 2, Monocytes % (Manual) 6, Eosinophils % (Manual) 0, Basophils % (Manual) 0, Band Neutrophils 1, Hypochromasia SLIGHT, Poikilocytosis SLIGHT, Anisocytosis MODERATE, Target Cells SLIGHT, Rouleau SLIGHT, Sodium Level 136, Potassium Level 4.1, Chloride Level 95, Carbon Dioxide Level 23, Anion Gap 18, Blood Urea Nitrogen 71, Creatinine 2.66, Estimat Glomerular Filtration Rate 17, BUN/Creatinine Ratio 27, Glucose Level 211, Calcium Level 9.5, Phosphorus Level 6.0, Magnesium Level 2.3 09/25/18 16:06: Glucometer 317 09/25/18 20:50: Glucometer 258 09/26/18 04:30: White Blood Count 8.2, Red Blood Count 3.51, Hemoglobin 9.2, Hematocrit 29, Mean Corpuscular Volume 84, Mean Corpuscular Hemoglobin 26, Mean Corpuscular Hemoglobin Concent 31, Red Cell Distribution Width 19.5, Platelet Count 245, Mean Platelet Volume 10.4, Neutrophils (%) (Auto) 81, Lymphocytes (%) (Auto) 9, Monocytes (%) (Auto) 10, Eosinophils (%) (Auto) 0, Basophils (%) (Auto) 0, Neutrophils # (Auto) 6.6, Lymphocytes # (Auto) 0.7, Monocytes # (Auto) 0.8, Eosinophils # (Auto) 0.0, Basophils # (Auto) 0.0, Sodium Level 139, Potassium Level 3.3, Chloride Level 100, Carbon Dioxide Level 24, Anion Gap 15, Blood Urea Nitrogen 71, Creatinine 2.37, Estimat Glomerular Filtration Rate 20, BUN/ Creatinine Ratio 30, Glucose Level 224, Calcium Level 9.5, Phosphorus Level 4.5 , Magnesium Level 2.1 09/26/18 05:00: Glucometer 241 09/26/18 11:17: Glucometer 387 09/26/18 15:56: Glucometer 240 09/26/18 21:36: Glucometer 179 09/27/18 05:20: White Blood Count 7.8, Red Blood Count 3.73, Hemoglobin 9.8, Hematocrit 32, Mean Corpuscular Volume 85, Mean Corpuscular Hemoglobin 26, Mean Corpuscular Hemoglobin Concent 31, Red Cell Distribution Width 20.1, Platelet Count 252, Mean Platelet Volume 10.0, Neutrophils (%) (Auto) 83, Lymphocytes (%) (Auto) 8, Monocytes (%) (Auto) 8, Eosinophils (%) (Auto) 1, Basophils (%) (Auto) 0, Neutrophils # (Auto) 6.4, Lymphocytes # (Auto) 0.6, Monocytes # (Auto) 0.6, Eosinophils # (Auto) 0.1, Basophils # (Auto) 0.0, Sodium Level 145, Potassium Level 3.4, Chloride Level 102, Carbon Dioxide Level 28, Anion Gap 15, Blood Urea Nitrogen 62, Creatinine 2.31, Estimat Glomerular Filtration Rate 21, BUN/ Creatinine Ratio 27, Glucose Level 224, Calcium Level 9.9, Phosphorus Level 3.4 , Magnesium Level 1.8 09/27/18 05:23: Glucometer 230 09/27/18 09:45: Urine Color YELLOW, Urine Clarity CLEAR, Urine pH 6.5, Urine Specific [place] 1.010, Urine Protein 2+, Urine Glucose (UA) 3+, Urine Ketones NEGATIVE, Urine Nitrite NEGATIVE, Urine Bilirubin NEGATIVE, Urine Urobilinogen NORMAL, Urine Leukocyte Esterase 2+, Urine RBC (Auto) 2+, Urine RBC 5-10, Urine WBC 5-10, Urine Squamous Epithelial Cells NONE, Urine Crystals NONE, Urine Bacteria NEGATIVE, Urine Casts NONE, Urine Mucus NEGATIVE, Urine Culture Indicated YES 09/27/18 11:00: Glucometer 280 09/27/18 15:38: Glucometer 422 09/27/18 20:30: Glucometer 415 09/28/18 04:15: White Blood Count 10.9, Red Blood Count 3.67, Hemoglobin 9.9, Hematocrit 31, Mean Corpuscular Volume 85, Mean Corpuscular Hemoglobin 27, Mean Corpuscular Hemoglobin Concent 32, Red Cell Distribution Width 19.7, Platelet Count 232, Mean Platelet Volume 9.8, Neutrophils (%) (Auto) 79, Lymphocytes (%) (Auto) 9, Monocytes (%) (Auto) 9, Eosinophils (%) (Auto) 3, Basophils (%) (Auto) 1, Neutrophils # (Auto) 8.6, Lymphocytes # (Auto) 1.0, Monocytes # (Auto) 1.0, Eosinophils # (Auto) 0.3, Basophils # (Auto) 0.1, Sodium Level 143, Potassium Level 3.6, Chloride Level 101, Carbon Dioxide Level 25, Anion Gap 17, Blood Urea Nitrogen 60, Creatinine 2.24, Estimat Glomerular Filtration Rate 21, BUN/ Creatinine Ratio 27, Glucose Level 179, Calcium Level 9.6, Phosphorus Level 2.7 , Magnesium Level 1.7 09/28/18 05:13: Glucometer 204 09/28/18 10:55: Glucometer 263 Discussion & Recommendations UTI resolved and patient woke up Discharge Home Medications: Active Scripts Active Levaquin (Levofloxacin) 500 Mg Tablet 500 Mg PO Q48H START 09/28/18 Reported Potassium Chloride 20 Meq Tab.er.prt 40 Meq PO Q48H TAKES 2 (20MEQ) TABLETS ON ODD DAYS IN THE AFTERNOON Metolazone 2.5 Mg Tablet 2.5 Mg PO Q48H Lidocare (Lidocaine) 1 Each Adh..patch 1 Patch TD DAILY 5% PATCH APPLY TO LOWER BACK IN AM AND OFF AT HS Bumetanide 2 Mg Tablet 2 Mg PO BID Baclofen 10 Mg Tablet 10 Mg PO TID Tylenol Extra Strength (Acetaminophen) 500 Mg Tablet 1,000 Mg PO Q8H PRN TAKES 2 (500MG) TABLETS Novolog Flexpen (Insulin Aspart) 300 Units/3 Ml Solution SC ACHS 61-200 = 0 UNITS 201-250 = 3 UNITS 251-300 = 5 UNITS 301-350 = 7 UNITS 351-400 = 9 UNITS >400 OR <60 CALL PHYSICIAN Hydrocodone-Acetamin 5-325 mg (Hydrocodone/Acetaminophen) 1 Each Tablet 1 Tab PO TID Sertraline HCl 50 Mg Tablet 25 Mg PO HS TAKES 1/2 (50MG) TABLET Metoprolol Tartrate 25 Mg Tablet 12.5 Mg PO DAILY TAKES 1/2 (25MG) TABLET Guaifenesin Dm Syrup (Guaifenesin/Dextromethorphan) 5 Ml Syrup 10 Ml PO Q4H PRN Clopidogrel (Clopidogrel Bisulfate) 75 Mg Tablet 75 Mg PO HS Gabapentin 300 Mg Capsule 300 Mg PO BID Aspirin EC (Aspirin) 81 Mg Tablet. 81 Mg PO HS Atorvastatin Calcium 80 Mg Tablet 80 Mg PO HS Instructions to patient/family Please see electronic discharge instructions given to patient. Clinical Quality Measures DVT/VTE Risk/Contraindication: Risk Factor Score Per Nursin RFS Level Per Nursing on Admit: 4+=Very High MERRICK SIEGEL DO Sep 29, 2018 07:39
== END 2018-09-28 13:50 | DRG 100 ==
LOC: ER 02:19 → ICU 04:00 → 4TH 09-25 10:48
PROVIDERS: ADMIT Internal Medicine; ATTEND Internal Medicine
DX: G40.909 Epilepsy, unspecified, not intractable, without status epilepticus (principal); G93.41 Metabolic encephalopathy; J10.89 Influenza due to other identified influenza virus with other manifestations; I13.0 Hypertensive heart and chronic kidney disease with heart failure and stage 1 through stage 4 chronic kidney disease, or unspecified chronic kidney disease; N18.4 Chronic kidney disease, stage 4 (severe); I50.43 Acute on chronic combined systolic (congestive) and diastolic (congestive) heart failure; J44.1 Chronic obstructive pulmonary disease with (acute) exacerbation; I21.4 Non-ST elevation (NSTEMI) myocardial infarction; Z66 Do not resuscitate; N17.9 Acute kidney failure, unspecified; N39.0 Urinary tract infection, site not specified; J90 Pleural effusion, not elsewhere classified; I25.10 Atherosclerotic heart disease of native coronary artery without angina pectoris; F17.210 Nicotine dependence, cigarettes, uncomplicated; I25.5 Ischemic cardiomyopathy; I25.2 Old myocardial infarction; E78.00 Pure hypercholesterolemia, unspecified; I49.9 Cardiac arrhythmia, unspecified; E87.8 Other disorders of electrolyte and fluid balance, not elsewhere classified; E11.40 Type 2 diabetes mellitus with diabetic neuropathy, unspecified; K21.9 Gastro-esophageal reflux disease without esophagitis; M81.0 Age-related osteoporosis without current pathological fracture; M19.91 Primary osteoarthritis, unspecified site; M54.9 Dorsalgia, unspecified; F41.9 Anxiety disorder, unspecified; F32.9 Major depressive disorder, single episode, unspecified; R79.89 Other specified abnormal findings of blood chemistry; G30.9 Alzheimer's disease, unspecified; F02.80 Dementia in other diseases classified elsewhere, unspecified severity, without behavioral disturbance, psychotic disturbance, mood disturbance, and anxiety; D64.9 Anemia, unspecified
CPT/HCPCS: 36415; 51702; 70450; 71045; 80048; 80053; 81000; 82805; 82962; 83605; 83735; 83880; 84100; 84443; 84484; 85007; 85025; 85027; 85610; 85730; 87040; 87077; 87081; 87088; 87186; 87804; 93005; 93041; 96374; 96375